=== PATIENT | female | born 1985 | race Caucasian/White ===

== ENCOUNTER → 2019-12-12 15:47 | Outpatient (CLI) | payer OTHER, SELFPAY ==
[2019-12-12 15:07] VITALS: BMI 23.7
[2019-12-12 17:30] LABS: Vitamin B12 467 pg/mL (211-911)
[2019-12-12 17:47] LABS: Free T3 3.6 pg/mL (2.18-3.98); Thyroid Stim Hormone (TSH) < 0.01 uIU/mL (0.358-3.74)
== END ==
PROVIDERS: Referring Provider Internal Medicine Endocrinology, Diabetes & Metabolism; Visit Provider Internal Medicine Endocrinology, Diabetes & Metabolism
DX: E05.90 Thyrotoxicosis, unspecified without thyrotoxic crisis or storm (principal); E53.8 Deficiency of other specified B group vitamins
CPT/HCPCS: 36415; 82607; 84439; 84443; 84481

== ENCOUNTER → 2020-02-06 08:57 | Outpatient (CLI) | payer OTHER, SELFPAY ==
[2019-12-12 15:07] VITALS: BMI 23.7
[2020-02-06 10:29] LABS: Free T3 3.1 pg/mL (2.18-3.98); T4 Free Direct 1.01 ng/dL (0.76-1.46); Thyroid Stim Hormone (TSH) 0.02 uIU/mL (0.358-3.74)
== END ==
PROVIDERS: Referring Provider Internal Medicine Endocrinology, Diabetes & Metabolism; Visit Provider Internal Medicine Endocrinology, Diabetes & Metabolism
DX: E05.90 Thyrotoxicosis, unspecified without thyrotoxic crisis or storm (principal)
CPT/HCPCS: 36415; 84439; 84443; 84481

== ENCOUNTER → 2020-05-27 07:30 | Outpatient (CLI) | payer OTHER, SELFPAY ==
[2019-12-12 15:07] VITALS: BMI 23.7
[2020-05-27 10:58] LABS: Free T3 3.4 pg/mL (2.18-3.98); T4 Free Direct 1.25 ng/dL (0.76-1.46); Thyroid Stim Hormone (TSH) 0.01 uIU/mL (0.358-3.74)
== END ==
PROVIDERS: Referring Provider Internal Medicine Endocrinology, Diabetes & Metabolism; Visit Provider Internal Medicine Endocrinology, Diabetes & Metabolism
DX: E05.00 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xic crisis or storm (principal)
CPT/HCPCS: 36415; 84439; 84443; 84481

== ENCOUNTER → 2020-06-04 07:44 | Outpatient (CLI) | payer OTHER, SELFPAY ==
[2019-12-12 15:07] VITALS: BMI 23.7
[2020-06-04 09:55] LABS: Absolute Lymphocyte Count 1.65 X10^3/uL (0.83-4.51); Absolute Neutrophil Count 2.8 X10^3/uL (2.0-7.7); Basophil# 0.06 X10^3/uL; Basophil% 1.2 % (0-1); Eosinophil# 0.11 X10^3/uL; Eosinophils% 2.2 % (0-5); Hematocrit 39.4 % (37-47); Hemoglobin 12.6 g/dL (12.0-15.0); Lymphocyte # 1.65 X10^3/ul (4.0); Lymphocyte % 32.6 % (19-41); Mean Corpuscular Hgb 32.1 pg (27.0-32.0); Mean Corpuscular Volume 100.3 fL (81-99); Mean Platelet Vol. 9.8 fl (6.2-12.0); Monocyte# 0.45 X10^3/uL; Monocyte% 8.9 % (0-10); NRBC Flagged by Analyzer 0 % (0-5); Neutrophil # 2.78 X10^3/uL (2.7-7.7); Neutrophil % 54.9 % (47-70); Platelet Count 276 K/mm3 (150-450); RBC Distribution Width CV 11.6 % (11.6-14.6); RBC Distribution Width SD 42.3 fl (35.1-43.9); Red Blood Count 3.93 M/mm3 (4.2-5.4); White Blood Count 5.1 K/mm3 (4.4-11.0)
[2020-06-04 10:18] LABS: ALB/GLOB Ratio 1.1 RATIO (0.9-2.4); AST(SGOT) 15 U/L (15-37); Alanine Aminotransfer ALT/SGPT 24 U/L (13-56); Albumin, Serum 3.6 g/dL (3.2-5.0); Alkaline Phosphatase 59 U/L (45-117); Anion Gap 4 (5-15); BUN 15 mg/dL (7-18); BUN/Creat Ratio 14.2 RATIO (10-20); Calcium,Total 8.6 mg/dL (8.5-10.1); Chloride 109 mmol/L (98-107); Creatinine, Serum 1.06 mg/dL (0.55-1.02); EST Glomerular Filtration Rate 63 mL/min (>60); Est Glom Filt Rate - Afr Amer 77 mL/min (>60); Globulin 3.4 g/dL (2.2-4.2); Glucose 78 mg/dL (74-106); Potassium 4.4 mmol/L (3.5-5.1); Sodium Level 139 mmol/L (136-145)
== END ==
PROVIDERS: Referring Provider Internal Medicine Endocrinology, Diabetes & Metabolism; Visit Provider Internal Medicine Endocrinology, Diabetes & Metabolism
DX: E05.00 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xic crisis or storm (principal)
CPT/HCPCS: 36415; 80053; 85025

== ENCOUNTER → 2020-07-16 09:21 | Outpatient (CLI) | payer OTHER, SELFPAY ==
[2020-06-11 15:00] VITALS: BMI 22.5
[2020-07-19 15:51] LABS: HPV APTIMA, High Risk Negative (Negative); HPV Reflexed? YES, CHARGE PATIENT
== END ==
PROVIDERS: Visit Provider Student in an Organized Health Care Education/Training Program
DX: Z12.4 Encounter for screening for malignant neoplasm of cervix (principal)
CPT/HCPCS: 87624; 88175; G0145

== ENCOUNTER → 2020-08-15 09:51 | Outpatient (CLI) | payer OTHER, SELFPAY ==
[2020-06-11 15:00] VITALS: BMI 22.5
[2020-08-15 13:33] LABS: Free T3 3.1 pg/mL (2.18-3.98); T4 Free Direct 1.19 ng/dL (0.76-1.46); Thyroid Stim Hormone (TSH) 0.02 uIU/mL (0.358-3.74)
== END ==
PROVIDERS: Referring Provider Internal Medicine Endocrinology, Diabetes & Metabolism; Visit Provider Internal Medicine Endocrinology, Diabetes & Metabolism
DX: E05.00 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xic crisis or storm (principal)
CPT/HCPCS: 36415; 84439; 84443; 84481

== ENCOUNTER → 2020-10-15 07:50 | Outpatient (CLI) | payer OTHER, SELFPAY ==
[2020-06-11 15:00] VITALS: BMI 22.5
[2020-10-15 10:31] LABS: Free T3 2.6 pg/mL (2.18-3.98); T4 Free Direct 1.16 ng/dL (0.76-1.46); Thyroid Stim Hormone (TSH) 0.02 uIU/mL (0.358-3.74)
== END ==
PROVIDERS: Referring Provider Internal Medicine Endocrinology, Diabetes & Metabolism; Visit Provider Internal Medicine Endocrinology, Diabetes & Metabolism
DX: E05.00 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xic crisis or storm (principal)
CPT/HCPCS: 36415; 84439; 84443; 84481

== ENCOUNTER → 2020-11-15 08:38 | Outpatient (CLI) | payer OTHER, SELFPAY ==
[2020-10-21 08:14] VITALS: BMI 22.3
[2020-11-15 10:04] LABS: Absolute Lymphocyte Count 1.94 X10^3/uL (0.83-4.51); Basophil# 0.05 X10^3/uL; Basophil% 0.9 % (0-1); Eosinophil# 0.05 X10^3/uL; Eosinophils% 0.9 % (0-5); Hematocrit 40.4 % (37-47); Hemoglobin 12.8 g/dL (12.0-15.0); Lymphocyte # 1.94 X10^3/ul (4.0); Mean Corp Hgb Conc 31.7 g/dL (32-36); Mean Corpuscular Hgb 31.3 pg (27.0-32.0); Mean Corpuscular Volume 98.8 fL (81-99); Mean Platelet Vol. 9.7 fl (6.2-12.0); Monocyte# 0.32 X10^3/uL; Monocyte% 5.9 % (0-10); NRBC Flagged by Analyzer 0 % (0-5); Neutrophil # 3.01 X10^3/uL (2.7-7.7); Neutrophil % 55.9 % (47-70); Platelet Count 303 K/mm3 (150-450); RBC Distribution Width CV 11.9 % (11.6-14.6); RBC Distribution Width SD 43.6 fl (35.1-43.9); Red Blood Count 4.09 M/mm3 (4.2-5.4); White Blood Count 5.4 K/mm3 (4.4-11.0)
[2020-11-15 10:26] LABS: Vitamin B12 302 pg/mL (211-911); Vitamin D,25 Hydroxy 23.5 ng/mL
[2020-11-15 10:40] LABS: ALB/GLOB Ratio 1.1 RATIO (0.9-2.4); AST(SGOT) 8 U/L (15-37); Alanine Aminotransfer ALT/SGPT 28 U/L (13-56); Albumin, Serum 3.7 g/dL (3.2-5.0); Alkaline Phosphatase 59 U/L (45-117); Anion Gap 4 (5-15); BUN 11 mg/dL (7-18); BUN/Creat Ratio 10.4 RATIO (10-20); Calcium,Total 8.4 mg/dL (8.5-10.1); Chloride 109 mmol/L (98-107); Creatinine, Serum 1.06 mg/dL (0.55-1.02); EST Glomerular Filtration Rate 63 mL/min (>60); Est Glom Filt Rate - Afr Amer 76 mL/min (>60); Ferritin 57 ng/mL (8-252); Globulin 3.4 g/dL (2.2-4.2); Glucose 81 mg/dL (74-106); Potassium 4.1 mmol/L (3.5-5.1); Protein, Total 7.1 g/dL (6.4-8.2); Sodium Level 140 mmol/L (136-145)
[2020-11-20 07:07] LABS: VITAMIN B6 26.1 ug/L (2.0-32.8); Vitamin B1, Thiamine 96.9 nmol/L (66.5-200.0)
[2020-11-20 13:38] LABS: t-Transglutaminase IgA 2 U/mL (0-3)
== END ==
DX: K90.0 Celiac disease (principal)
CPT/HCPCS: 36415; 80053; 82306; 82607; 82728; 82746; 83516; 84207; 84425; 85025

== ENCOUNTER → 2021-01-20 08:01 | Outpatient (CLI) | payer OTHER, SELFPAY ==
[2020-10-21 08:14] VITALS: BMI 22.3
[2021-01-20 10:44] LABS: T4 Free Direct 0.94 ng/dL (0.76-1.46); Thyroid Stim Hormone (TSH) 1.33 uIU/mL (0.358-3.74)
== END ==
PROVIDERS: Referring Provider Internal Medicine Endocrinology, Diabetes & Metabolism; Visit Provider Internal Medicine Endocrinology, Diabetes & Metabolism
DX: E05.00 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xic crisis or storm (principal)
CPT/HCPCS: 36415; 84439; 84443; 84481

== ENCOUNTER → 2021-04-21 08:30 | Outpatient (CLI) | payer OTHER, SELFPAY ==
[2021-04-21 08:13] VITALS: BMI 22.5
[2021-04-21 13:01] LABS: Free T3 2.1 pg/mL (2.18-3.98); T4 Free Direct 0.97 ng/dL (0.76-1.46)
== END ==
PROVIDERS: Referring Provider Internal Medicine Endocrinology, Diabetes & Metabolism; Visit Provider Internal Medicine Endocrinology, Diabetes & Metabolism
DX: E05.00 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xic crisis or storm (principal)
CPT/HCPCS: 36415; 84439; 84443; 84481

== ENCOUNTER → 2021-08-18 11:44 | Outpatient (CLI) | payer OTHER, SELFPAY ==
--- NOTE | 2021-08-18 11:48 | RAD_ITS ---
STUDY: HYSTEROSALPINGOGRAM. REASON FOR EXAM: Female, 35 years old. TUBAL PATENCY FLUOROSCOPY TIME (if supplied): ( 1 minute and 9 seconds ) minutes/seconds. 2 images were obtained. TECHNIQUE: A hysterosalpingogram was performed by the inspector technician. Imaging was provided. COMPARISON: None. FINDINGS: Limited examination due to the filling of the venous plexus. The left fallopian tube is patent with spill. I also suspect patency of the right fallopian tube. The uterus is unremarkable. RAD/Salpingogram IMPRESSION: Limited study. The uterus is unremarkable. I suspect patency of both fallopian tubes. Electronically Signed: Gordo Hubbard MD at 14:02 EDT , Service support ,
== END ==
PROVIDERS: Visit Provider Obstetrics & Gynecology
DX: Z31.41 Encounter for fertility testing (principal)
CPT/HCPCS: 58340; 74740; Q9967

== ENCOUNTER → 2021-09-24 08:09 | Outpatient (CLI) | payer OTHER, SELFPAY ==
[2021-09-24 10:29] LABS: Free T3 2.3 pg/mL (2.18-3.98); T4 Free Direct 0.94 ng/dL (0.76-1.46); Thyroid Stim Hormone (TSH) 1.55 uIU/mL (0.358-3.74)
== END ==
PROVIDERS: Referring Provider Internal Medicine Endocrinology, Diabetes & Metabolism; Visit Provider Internal Medicine Endocrinology, Diabetes & Metabolism
DX: E05.00 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xic crisis or storm (principal)
CPT/HCPCS: 36415; 84439; 84443; 84481

== ENCOUNTER 2022-01-26 07:23 | Outpatient (CLI) | payer OTHER, SELFPAY ==
--- NOTE | 2022-01-26 07:43 | MRI_ITS ---
STUDY: MRI RIGHT SHOULDER REASON FOR EXAM: Chronic right shoulder pain. TECHNIQUE: Standardized fat and water weighted pulse sequences were obtained in all 3 orthogonal planes. COMPARISON: None. FINDINGS: There is mild supraspinatus tendinosis (T2 coronal images 11-14) without discrete tendon tear. Normal infraspinatus tendon. Normal subscapularis tendon. Normal teres minor tendon. Normal supraspinatus muscle. Normal infraspinatus muscle. Normal subscapularis muscle. Normal teres minor muscle. Normal glenohumeral articulation. Normal humeral head and visualized proximal humerus. Normal biceps labral complex. Normal intracapsular long biceps tendon. Normal labrum. Normal capsulo- ligamentous complex. Normal acromioclavicular articulation. There is a Type II morphology (curved), with a neutral orientation. There is no subacromial-subdeltoid bursal fluid. Normal visualized coracohumeral and coracoacromial ligaments. Normal deltoid muscle. Normal trapezius muscle. MRI/Upper Ext Joint Only(Routine) IMPRESSION: Mild supraspinatus tendinosis without demonstrated rotator cuff tear. Electronically Signed: Beltran Pink MD at 9:30 EDT ,
[2022-01-26 12:31] LABS: Free T3 2.4 pg/mL (2.18-3.98); T4 Free Direct 0.92 ng/dL (0.76-1.46); Thyroid Stim Hormone (TSH) 1.66 uIU/mL (0.358-3.74)
== END 2022-01-26 23:59 | disposition home or self-care (01) ==
PROVIDERS: Internal Medicine Endocrinology, Diabetes & Metabolism; Referring Provider Orthopaedic Surgery Hand Surgery; Visit Provider Orthopaedic Surgery Hand Surgery
DX: E05.00 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xic crisis or storm (principal); M65.811 Other synovitis and tenosynovitis, right shoulder; M25.511 Pain in right shoulder
CPT/HCPCS: 36415; 73221; 84439; 84443; 84481

== ENCOUNTER → 2022-07-08 | Outpatient (CLI) | payer OTHER, SELFPAY ==
[2022-07-08 16:09] LABS: Free T3 3.2 pg/mL (2.18-3.98); T4 Free Direct 1.07 ng/dL (0.76-1.46); Thyroid Stim Hormone (TSH) 0.19 uIU/mL (0.358-3.74)
== END | disposition home or self-care (01) ==
LOC: MTLAB 13:38
PROVIDERS: PCP Family Medicine; Referring Provider Nurse Practitioner Family; Visit Provider Nurse Practitioner Family
DX: E05.00 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xic crisis or storm (principal)
CPT/HCPCS: 36415; 84439; 84443; 84481

== ENCOUNTER → 2022-09-02 | Outpatient (CLI) | payer OTHER, SELFPAY ==
[2022-09-02 10:42] LABS: Free T3 3.3 pg/mL (2.18-3.98); T4 Free Direct 1.11 ng/dL (0.76-1.46); Thyroid Stim Hormone (TSH) 0.01 uIU/mL (0.358-3.74)
== END | disposition home or self-care (01) ==
LOC: MTLAB 08:16
PROVIDERS: PCP Family Medicine; Visit Provider Internal Medicine Endocrinology, Diabetes & Metabolism
DX: E05.00 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xic crisis or storm (principal)
CPT/HCPCS: 36415; 84439; 84443; 84481

== ENCOUNTER → 2022-09-22 | Outpatient (CLI) | payer OTHER, SELFPAY ==
[2022-09-22 18:19] LABS: Free T3 3.1 pg/mL (2.18-3.98); T4 Free Direct 0.98 ng/dL (0.76-1.46); Thyroid Stim Hormone (TSH) 0.02 uIU/mL (0.358-3.74)
== END | disposition home or self-care (01) ==
LOC: MTLAB 14:32
PROVIDERS: PCP Family Medicine; Referring Provider Internal Medicine Endocrinology, Diabetes & Metabolism; Visit Provider Internal Medicine Endocrinology, Diabetes & Metabolism
DX: E05.00 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xic crisis or storm (principal)
CPT/HCPCS: 36415; 84439; 84443; 84481

== ENCOUNTER → 2022-10-15 | Outpatient (CLI) | payer OTHER, SELFPAY ==
[2022-10-15 10:44] LABS: Vitamin B12 419 pg/mL (211-911)
[2022-10-15 10:51] LABS: Free T3 2.6 pg/mL (2.18-3.98); T4 Free Direct 0.84 ng/dL (0.76-1.46); Thyroid Stim Hormone (TSH) 0.26 uIU/mL (0.358-3.74)
== END | disposition home or self-care (01) ==
LOC: MTLAB 08:41
PROVIDERS: Internal Medicine Endocrinology, Diabetes & Metabolism; PCP Family Medicine; Referring Provider Nurse Practitioner Family; Visit Provider Nurse Practitioner Family
DX: E05.00 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xic crisis or storm (principal); R20.2 Paresthesia of skin
CPT/HCPCS: 36415; 82607; 84439; 84443; 84481

== ENCOUNTER → 2022-12-22 | Outpatient (CLI) | payer OTHER, SELFPAY ==
--- NOTE | 2022-12-22 18:15 | MRI_ITS ---
PROCEDURE: MRI LUMBAR SPINE WITHOUT CONTRAST REASON FOR EXAM: Female, 37 years old. Low back pain TECHNIQUE: Standardized fat and water weighted pulse sequences were obtained in the sagittal and axial planes. COMPARISON: None FINDINGS: Normal lumbar lordosis. There is no substantial scoliosis. Normal conus medullaris that terminates at the T12-L1 level. No marrow edema or fracture or compression deformity is present. No pars interarticularis defects are seen. T12-L1: Normal endplates. Normal disc height, hydration and morphology. Normal bilateral facet joints. Normal central canal and bilateral lateral recesses. Normal bilateral intervertebral neural foramina. L1-2: Normal endplates. Normal disc height, hydration and morphology. Normal bilateral facet joints. Normal central canal and bilateral lateral recesses. Normal bilateral intervertebral neural foramina. L2-3: Normal endplates. Normal disc height, hydration and morphology. Normal bilateral facet joints. Normal central canal and bilateral lateral recesses. Normal bilateral intervertebral neural foramina. L3-4: Normal endplates. Normal disc height, hydration and morphology. Normal bilateral facet joints. Normal central canal and bilateral lateral recesses. Normal bilateral intervertebral neural foramina. L4-5: Normal endplates. Normal disc height, hydration and morphology. Mild facet joint hypertrophy. Normal central canal and bilateral lateral recesses. Normal bilateral intervertebral neural foramina. L5-S1: Normal endplates. Normal disc height, hydration and morphology. Mild facet joint hypertrophy. Normal central canal and bilateral lateral recesses. Normal bilateral intervertebral neural foramina. Normal visualized sacral ala. Normal visualized paraspinous soft tissue structures. MRI/Spine Lumbar (Routine) IMPRESSION: 1. Mild facet joint hypertrophy at L4-L5 and L5-S1 Electronically Signed: Armando Gómez MD at 10:47 EST Reading Location ID and State: [address] [place] [address] , Service support ,
== END | disposition home or self-care (01) ==
LOC: MRI 17:50
PROVIDERS: PCP Family Medicine; Visit Provider Chiropractor
DX: M54.16 Radiculopathy, lumbar region (principal)
CPT/HCPCS: 72148

== ENCOUNTER → 2023-03-05 | Outpatient (CLI) | payer OTHER, SELFPAY ==
[2023-03-05 16:10] LABS: T4 Free Direct 1.33 ng/dL (0.76-1.46); Thyroid Stim Hormone (TSH) < 0.01 uIU/mL (0.358-3.74)
== END | disposition home or self-care (01) ==
LOC: MTLAB 13:16
PROVIDERS: PCP Family Medicine; Referring Provider Internal Medicine Endocrinology, Diabetes & Metabolism; Visit Provider Internal Medicine Endocrinology, Diabetes & Metabolism
DX: E05.00 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xic crisis or storm (principal)
CPT/HCPCS: 36415; 84439; 84443; 84481

== ENCOUNTER → 2023-04-08 | Outpatient (CLI) | payer OTHER, SELFPAY ==
[2023-04-08 09:46] LABS: Free T3 3.2 pg/mL (2.18-3.98); T4 Free Direct 1.09 ng/dL (0.76-1.46); Thyroid Stim Hormone (TSH) 0.01 uIU/mL (0.358-3.74)
== END | disposition home or self-care (01) ==
LOC: LAB 08:28
PROVIDERS: PCP Family Medicine; Referring Provider Internal Medicine Endocrinology, Diabetes & Metabolism; Visit Provider Internal Medicine Endocrinology, Diabetes & Metabolism
DX: E05.00 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xic crisis or storm (principal)
CPT/HCPCS: 36415; 84439; 84443; 84481

== ENCOUNTER → 2023-07-13 | Outpatient (CLI) | payer OTHER, SELFPAY ==
--- NOTE | 2023-07-13 14:36 | BD_ITS ---
STUDY: DUAL ENERGY X-RAY ABSORPTIOMETRY / DXA REASON FOR EXAM: Female, 37 years old. V76.12ScreeningBONE DENSITY REASON FOR EXAM TECHNIQUE: Bone Mineral Density (BMD) measurements of lumbar spine and bilateral hips were obtained. COMPARISON: None. FINDINGS: Lumbar Spine (L1-L4): g/cm2 (1.302) / T-score (2.3) / Z-score (2.4) Findings are suggestive of normal bone density with a low fracture risk. Left Femur Total: g/cm2 (0.956) / T-score (0.1) / Z-score (0.2) Left Femoral Neck: g/cm2 (0.824) / T-score (-0.2) / Z-score (0.0) Right Femur Total: g/cm2 (0.975) / T-score (0.3) / Z-score (0.4) Right Femoral Neck: g/cm2 (0.848) / T-score (0.0) / Z-score (0.2) BD/Dexa Bone Density Study IMPRESSION: The patient is considered normal as outlined below according to World Deandre Organization (WHO) criteria with a low fracture risk. Reference Information: The T-score is the number of standard deviations above or below the standard which is normal for young adults at their peak bone mineral density. The World Health Organization (WHO) interprets the T-scores as follows: Above -1 Normal bone density Between -1 and -2.5 Osteopenia Equal to / or below -2.5 Osteoporosis As a practical clinical guideline, osteopenia may be graded as follows: Mild -1 through -1.5 Moderate -1.6 through -2.0 Severe -2.1 through -2.4 The Z-score is the number of standard deviations above or below age-matched controls. A Z-score of less than -1.5 would be considered abnormal. References: 1. NIH Osteoporosis and Related Bone Diseases www osteo.org 2. International Society for Clinical Densitometry www iscd.org 3. National Osteoporosis Foundation www nof.org Electronically Signed: Gordo Hubbard MD at 14:52 EDT ,
== END | disposition home or self-care (01) ==
PROVIDERS: PCP Family Medicine
DX: K90.0 Celiac disease (principal)
CPT/HCPCS: 77080

== ENCOUNTER → 2023-09-10 | Outpatient (CLI) | payer OTHER, SELFPAY ==
--- NOTE | 2023-09-10 14:02 | US_ITS ---
STUDY: THYROID ULTRASOUND REASON FOR EXAM: Female, 37 years old. GRAVES DISEASE TECHNIQUE: Ultrasound evaluation of the thyroid was performed with real-time and static rice-scale imaging. COMPARISON: None. FINDINGS: RIGHT LOBE: The right lobe of the thyroid gland is enlarged and measures 5.6 cm x 2.2 cm x 2.1 cm. There is a heterogeneous echotexture. There are no demonstrated solid, cystic or complex lesions. LEFT LOBE: The left lobe of the thyroid gland is enlarged and measures 5.3 cm x 1.5 cm x 1.6 cm. There is a heterogeneous echotexture. There are no demonstrated solid, cystic or complex lesions. ISTHMUS: The isthmus measures 2.2 mm. The regional lymph nodes are normal. US/Thyroid IMPRESSION: Heterogeneous enlargement of both lobes of the thyroid gland. Electronically Signed: Gordo Hubbard MD at 15:08 EDT ,
[2023-09-10 16:06] LABS: Free T3 2.1 pg/mL (2.18-3.98); T4 Free Direct 0.84 ng/dL (0.76-1.46); Thyroid Stim Hormone (TSH) 2.93 uIU/mL (0.358-3.74)
== END | disposition home or self-care (01) ==
PROVIDERS: Internal Medicine Endocrinology, Diabetes & Metabolism; PCP Family Medicine
DX: E05.00 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xic crisis or storm (principal)
CPT/HCPCS: 36415; 76536; 84439; 84443; 84481

== ENCOUNTER → 2023-10-13 | Outpatient (CLI) | payer OTHER, SELFPAY ==
[2023-10-13 10:33] LABS: Free T3 2.1 pg/mL (2.18-3.98); T4 Free Direct 0.87 ng/dL (0.76-1.46); Thyroid Stim Hormone (TSH) 2.69 uIU/mL (0.358-3.74)
== END | disposition home or self-care (01) ==
LOC: LAB 09:25
PROVIDERS: PCP Family Medicine; Referring Provider Internal Medicine Endocrinology, Diabetes & Metabolism; Visit Provider Internal Medicine Endocrinology, Diabetes & Metabolism
DX: E05.00 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xic crisis or storm (principal)
CPT/HCPCS: 36415; 84439; 84443; 84481

== ENCOUNTER → 2023-11-11 | Outpatient (CLI) | payer OTHER, SELFPAY ==
--- OUTSIDE RECORDS SUMMARY | 2023-11-11 20:44 | XMS RPT_ITS | CCD ---
Author Name Unknown Address [address] [place] [address] Organization [facility] Care Team Providers Care Manager Of Application Development Name Role Phone NO PRIMARY CAREMD Primary Care Unavailable DAWIT GARCIA Attending Unavailable MIO DARDEN Referring Unavailable MIO DARDEN MD Attending Unavailable MIO DARDEN MD Primary Care Unavailable MIO DARDEN MD Admitting Unavailable Natasha Ugalde DO Primary Care Provider NATASHA UGALDE [facility] Referring Unavailable NATASHA UGALDE Primary [facility] Attending Unavailable NATASHA UGALDE Primary Care Unavailab chhaya Medications Completed/Discontinued Medications Medication Drug Class(es) Dates Sig (Normalized) Sig (Original) Budesonide (1 source) Corticosteroid budesonide (RHIN OCORT NASAL) Use in the nose once daily. 0 Active Problems Problem Classification Problem Date Documented Da te Episodic/Chronic Osteoarthritis (2 sources) Arthritis of left elbow; Translations: [Primary osteoarthritis, left elbow] Onset: 04-07-2016 04-07-2016 Chronic Other gastrointestinal disorders (2 sources) Celiac disease; Translations: [Celiac disease] Onset: 04-17-2019 05-21-2023 Chronic Other gastrointestinal disorders (1 source) Celiac disease; Translations: [Celiac disease] Onset: 04-17-2019 Chronic Other non-traumatic joint disorders (1 source) Loose body in left elbow joint; Translations: [Loose body in left elbow] Onset: 08-05-2021 08-05-2021 Chronic Thyroid disorders (3 sources) Graves' disease; Translations: [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xic crisis or storm] Onset: 10-08-2018 05-21-2023 Chronic Results Test Name Value Interpretation Reference Range Facil ity Encounters Encounter Date Encounter Type Care Provider Facility Start: 05-27-2023 End: 05-28-2023 [facility] Start: 05-21-2023 End: 05-21-2023 ambulatory NATASHA UGALDE Facility:[facility] Start: 05-21-2023 End: 05-21-2023 ambulatory Va Beasley MD Work Phone: Endocrinology Plan of Treatment Date Care Activity Detail Author Start: 04-17-2029 Urine microalbumin profile DTAP,TDAP,TD (2 - Td or Tdap) [facility] Start: 07-09-2023 Influenza vaccination INFLUENZA (#1) [facility] Start: 05-21-2023 End: 07-21-2023 THYROID STIMULATING IMMUNOGLOBULIN BLOOD THYROID STIMULATING IMMUNOGLOBULIN BLOOD Lab Routine Graves disease Expected: 05/21/2023, Expires: 07/21/2023 [facility] Work Phone: Immunizations Immunization Date Immunization Notes Care Provider Amberly campos 04-17-2019 tetanus toxoid, redu shonna diphtheria toxoid, and acellular pertussis vaccine, adsorbed Va Beasley MD Work Phone: [facility] Payers Date Payer Category Payer Unknown [id number] 2022 Unknown [employer] P[employer] [id number] 2022-Present [phone] [address] [place] [address] PPO [id number] 1985 Unknown [id number] Social History Date Type Detail Facility Start: 11-19-2015 Tobacco smoking stat us NHIS Never smoked tobacco [facility] Start: 11-19-2015 Tobacco use and exposure Smoke less tobacco non-user [facility] Start: 08-05-2021 Alcohol intake Current drinke r of alcohol (finding) [facility] Start: 08-05-2021 End: 05-06-2023 History of Social function [facility] Start: 08-05-2021 End: 05-06-2023 Tobacco use panel [facility] Adult Depression Scr eening Assessment 0 [facility] Start: 1985 Sex Assigned At Not on file C [facility] Progress note 05-21-2023 Note Date & Type Note Facility 05-21-2023 Note HNO ID: [id number] Author: Va Beasley MD Service: ? Author Type: Physician Type: Progress Notes Filed: 05/21/2023 10:46 AM Note Text: ENDOCRINOLOGY REFERRAL - THYROID DISORDER Referring Physician: Natasha Ugalde, My final recommendations will be communicated back to the referring provider via shared medical record, or USPS FOR VIRTUAL VISITS: I have communicated my name and licensure. The patient's identity and location were verified. Either the patient or their legal ict sales representative has been informed of the risks, benefits, and alternatives based on a remote evaluation, and consents to proceed remotely per [place] law. CC: Graves disease HPI: Ray Vega is a 37 year old female who presents in referral for my expert opinion regarding Graves disease - diagnosed several years ago - was stable on 6 pills per week -- resolved and then relapsed - wants to start a family - now on 20 mg daily -- since last fall Severity, modifying factors, context and associated signs and symptoms are as follows: Thyroid pain: none Mass effect: none Energy: ok Sleep: not great Temperature Intolerance: hot GI: Celiac -- dx 10 years ago and follows the diet Weight:fairly stable Eye changes: noted Memory: ok Diaphoresis: Skin: Neuro/Cognitive: intact Radiological imaging with contrast dyes within the last 3 months? no History of radiation exposure to head or neck area? -Supplements: fish oil, B12 supplement, glucosamine, and The remainder of the ROS is negative PAST MEDICAL HISTORY Diagnosis Date B12 deficiency Celiac disease Biopsy proven Eating disorder history of age [age]. purging then restricting/ compulsive exercising Graves disease 10/2018 PAST SURGICAL HISTORY Procedure Laterality Date EGD Upper endoscoscopy: Dr. GriffithBjww-Ktspv-Estdfoc Celiac Disease ELBOW SURGERY HX 2008 left ELBOW SURGERY HX Left 10/2016 KNEE SURGERY HX 2007 Left x 2 LASIK 2013 TONSILLECTOMY AND ADENOIDECTOMY HX UNSPECIFIED ORAL SURGERY PROCEDURE, BY REPORT 2005 FAMILY HISTORY Problem Relation Age of Onset Breast Cancer Paternal Grandmother Skin Cancer Paternal Grandmother Diabetes Maternal Grandmother Coronary Artery Disease Maternal Grandmother GI Maternal Grandmother Diverticulitis Hyperlipidemia Mother Hypertension Mother Fibromyalgia Mother Blood Disease Mother MTHFR Hypertension Father GI Brother Non-celiac gluten sensitivity Coronary Artery Disease Maternal Grandfather Coronary Artery Disease Paternal Grandfather Diabetes Paternal Aunt other (Sarcoidosis) Maternal Aunt Social History Tobacco Use Smoking status: Never Smokeless tobacco: Never Substance Use Topics Alcohol use: Yes Alcohol/week: 0.0 - 5.0 standard drinks of alcohol Drug use: No Current Outpatient Medications on File Prior to Visit Medication Sig cetirizine HCl (ZYRTEC ORAL) Take by mouth. metHIMazole (TAPAZOLE) 10 mg tablet Take 1 tablet by mouth once daily. budesonide (RHINOCORT NASAL) Use in the nose once daily. cyanocobalamin (VITAMIN B-12) 1,000 mcg tab Take 1,000 mcg by mouth once daily. Norethindrone Acet-Ethinyl Est (JUNE,) 1-20 mg-mcg per tablet Take 1 tablet by mouth once daily. SULFACLEANSE 8-4 8-4 % susp Apply 1 application to affected area once daily. OMEGA-3 FATTY ACIDS/FISH OIL (OMEGA 3 FISH OIL ORAL) Take 1,200 mg by mouth once daily. No current facility-administered medications on file prior to visit. LABS - to be sent to me - also ordered new today IMAGING PHYSICAL EXAM: LMP 03/17/2019 VIRTUALLY General appearance: Well appearing, alert, in no acute distress, well-hydrated, well nourished. NECK - normal in appearance ASSESSMENT AND PLAN ASSESSMENT/PLAN: 1. Graves disease - ICD9: 242.00, ICD10: E05.00 (primary diagnosis) - at least since 2018 -- now with another relapse and back on fairly high dose methimazole - labs not available from her current MD - check ab - she will also seek opthal opinion re eye changes - discussed sx vs ablation -- recommend sx - TSH BLD - T3 FREE BLD - T4 FREE/FREE THYROX - THYROID STIMULATING IMMUNOGLOBULIN BLOOD - communicate via My Chart 2. Celiac disease - ICD9: 579.0, ICD10: K90.0 - compliant I thank you for the opportunity to participate in the care of Ray Vega. Please do not hesitate to contact me if you have further concerns or questions. This chart has been routed to the referring provider electronically aV Beasley MS, RD, MD, CCD, FACN, FACP, FACE Diplomate, [place] Board [employer]esity [employer] Diplomate, National Board of Physician Nutrition Specialists Endocrinology / / [facility] [id number] Any part of this document that has been added/copied AND pasted from other documents has been reviewed for accuracy and updated as appropriate at the time of the patient encounter [facility] History of Present illness Narrative 05-21-2023 Va Beasley MD - 05/21/2023 10:20 AM EDT Note Date & Type Note Facility 05-21-2023 History of Presen t illness Narrative ENDOCRINOLOGY REFERRAL - THYROID DISORDER Referring Physician: Natasha Ugalde, DO My final recommendations will be communicated back to the referring provider via shared medical record, or USPS FOR VIRTUAL VISITS: I have communicated my name and licensure. The patient's identity and location were verified. Either the patient or their legal ict sales representative has been informed of the risks, benefits, and alternatives based on a remote evaluation, and consents to proceed remotely per [place] law. CC: Graves disease HPI: Ray Vega is a 37 year old female who presents in referral for my expert opinion regarding Graves disease - diagnosed several years ago - was stable on 6 pills per week -- resolved and then relapsed - wants to start a family - now on 20 mg daily -- since last fall Severity, modifying factors, context and associated signs and symptoms are as follows: Thyroid pain: none Mass effect: none Energy: ok Sleep: not great Temperature Intolerance: hot GI: Celiac -- dx 10 years ago and follows the diet Weight:fairly stable Eye changes: noted Memory: ok Diaphoresis: Skin: Neuro/Cognitive: intact Radiological imaging with contrast dyes within the last 3 months? no History of radiation exposure to head or neck area? -Supplements: fish oil, B12 supplement, glucosamine, and The remainder of the ROS is negative PAST MEDICAL HISTORY Diagnosis Date B12 deficiency Celiac disease Biopsy proven Eating disorder history of age [age]. purging then restricting/ compulsive exercising Graves disease 10/2018 PAST SURGICAL HISTORY Procedure Laterality Date EGD Upper endoscoscopy: Dr. GriffithQude-Xgddc-Rkflicb Celiac Disease ELBOW SURGERY HX 2008 left ELBOW SURGERY HX Left 10/2016 KNEE SURGERY HX 2007 Left x 2 LASIK 2013 TONSILLECTOMY AND ADENOIDECTOMY HX UNSPECIFIED ORAL SURGERY PROCEDURE, BY REPORT 2006 FAMILY HISTORY Problem Relation Age of Onset Breast Cancer Paternal Grandmother Skin Cancer Paternal Grandmother Diabetes Maternal Grandmother Coronary Artery Disease Maternal Grandmother GI Maternal Grandmother Diverticulitis Hyperlipidemia Mother Hypertension Mother Fibromyalgia Mother Blood Disease Mother MTHFR Hypertension Father GI Brother Non-celiac gluten sensitivity Coronary Artery Disease Maternal Grandfather Coronary Artery Disease Paternal Grandfather Diabetes Paternal Aunt other (Sarcoidosis) Maternal Aunt Social History Tobacco Use Smoking status: Never Smokeless tobacco: Never Substance Use Topics Alcohol use: Yes Alcohol/week: 0.0 - 5.0 standard drinks of alcohol Drug use: No Current Outpatient Medications on File Prior to Visit Medication Sig cetirizine HCl (ZYRTEC ORAL) Take by mouth. metHIMazole (TAPAZOLE) 10 mg tablet Take 1 tablet by mouth once daily. budesonide (RHINOCORT NASAL) Use in the nose once daily. cyanocobalamin (VITAMIN B-12) 1,000 mcg tab Take 1,000 mcg by mouth once daily. Norethindrone Acet-Ethinyl Est (JUNE,) 1-20 mg-mcg per tablet Take 1 tablet by mouth once daily. SULFACLEANSE 8-4 8-4 % susp Apply 1 application to affected area once daily. OMEGA-3 FATTY ACIDS/FISH OIL (OMEGA 3 FISH OIL ORAL) Take 1,200 mg by mouth once daily. No current facility-administered medications on file prior to visit. LABS - to be sent to me - also ordered new today IMAGING PHYSICAL EXAM: LMP 03/17/2019 VIRTUALLY General appearance: Well appearing, alert, in no acute distress, well-hydrated, well nourished. NECK - normal in appearance ASSESSMENT & PLAN ASSESSMENT/PLAN: 1. Graves disease - ICD9: 242.00, ICD10: E05.00 (primary diagnosis) - at least since 2018 -- now with another relapse and back on fairly high dose methimazole - labs not available from her current MD - check ab - she will also seek opthal opinion re eye changes - discussed sx vs ablation -- recommend sx - TSH BLD - T3 FREE BLD - T4 FREE/FREE THYROX - THYROID STIMULATING IMMUNOGLOBULIN BLOOD - communicate via My Chart 2. Celiac disease - ICD9: 579.0, ICD10: K90.0 - compliant I thank you for the opportunity to participate in the care of Ray Vega. Please do not hesitate to contact me if you have further concerns or questions. This chart has been routed to the referring provider electronically Va Beasley, MS, RD, MD, CCD, FACN, FACP, FACE Diplomate, [place] [employer] Diplomate, National Board of Physician Nutrition Specialists Endocrinology / / [facility] [id number] Any part of this document that has been added/copied & pasted from other documents has been reviewed for accuracy and updated as appropriate at the time of the patient encounter documented in this encounter [facility] Evaluation note Note Date & Type Note Facility documented in this encounter [facility] Summary Purpose Family History No Family History Records FoundNo Family History Records FoundNo Family History Records FoundNo Family History Records FoundNo Family History Records FoundNo Family History Records FoundNo Family History Records Found Advance Directives No Advanced Directives Records FoundNo Advanced Directives Records FoundNo Advanced Directives Records FoundNo Advanced Directives Records FoundNo Advanced Directives Records FoundNo Advanced Directives Records FoundNo Advanced Directives Records Found Additional Source Comments INFORMATION SOURCE (unrecogn ized section and content) DATE CREATED AUTHOR AUTHOR'S ORGANIZ ATION 09/29/2019 [facility] DATE CREATED AUTHOR AUTHOR'S ORGANIZ ATION 11/15/2020 [employer] DATE CREATED AUTHOR AUTHOR'S ORGANIZ ATION 08/30/2021 [facility] ([place]) DATE CREATED AUTHOR AUTHOR'S ORGANIZ ATION 09/30/2022 [facility] DATE CREATED AUTHOR AUTHOR'S ORGANIZ ATION 02/02/2023 [facility] DATE CREATED AUTHOR AUTHOR'S ORGANIZ ATION 05/28/2023 [facility] Source Comments (unrecognize d section and content) In the event this informatio n is protected by the Federal Confidentiality of Alcohol and Drug Abuse Patient Records regulations: The Federal rules restrict any use of the information to criminally investigate or prosecute any alcohol or drug abuse patient.[facility] Reason for Visit (unrecogniz ed section and content) Specialty Diagnoses / Procedures Referred By Contac t Referred To Contact Endocrinology / ENDOCRINOLOGY Diagnoses Graves disease Graves Disease Procedures PHYS/QHP TELEPHONE EVALUATION 5-10 MIN [place] [address] [place] [address] Referral ID Status Reason Start Date Expiration Date V isits Requested Visits Authorized [id number] Denied Clearance Not Met - Admin/Chairm an/Director Advise to Postpone/Res chedule or Not Proceed 05/21/2023 08/19/2023 1 0 Care Teams (unrecognized sec tion and content) FOR RECORDS PERTAINING TO PATIENTS WHO ARE OR HAVE BEEN ENROLLED IN A CHEMICAL DEPENDENCY/SUBSTANCEABUSE PROGRAM, SOME INFORMATION MAY BE OMITTED. This clinical summary was aggregated from multiple sources. Caution should be exercised in using it in the provision of clinical care. This summary normalizes information from multiple sources, and as a consequence, information in this document may materially change the coding, format and clinical context of patient data. In addition, data may be omitted in some cases. CLINICAL DECISIONS SHOULD BE BASED ON THE PRIMARY CLINICAL RECORDS. [email or web address] [facility]. provides no warranty or guarantee of the accuracy or completeness of information in this document.
[2023-11-16 13:07] LABS: HPV APTIMA, High Risk Negative (Negative)
== END | disposition home or self-care (01) ==
PROVIDERS: PCP Family Medicine; Referring Provider Registered Nurse; Visit Provider Registered Nurse
DX: Z12.4 Encounter for screening for malignant neoplasm of cervix (principal)
CPT/HCPCS: 87624; 88175; G0145

== ENCOUNTER → 2024-03-08 | Outpatient (CLI) | payer OTHER, SELFPAY ==
[2024-03-08 10:56] LABS: Free T3 2.4 pg/mL (2.18-3.98); T4 Free Direct 0.91 ng/dL (0.76-1.46); Thyroid Stim Hormone (TSH) 1.74 uIU/mL (0.358-3.74)
== END | disposition home or self-care (01) ==
PROVIDERS: PCP Family Medicine; Referring Provider Internal Medicine Endocrinology, Diabetes & Metabolism; Visit Provider Internal Medicine Endocrinology, Diabetes & Metabolism
DX: E05.00 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xic crisis or storm (principal)
CPT/HCPCS: 36415; 84439; 84443; 84481

== ENCOUNTER → 2024-05-30 | Outpatient (CLI) | payer OTHER, SELFPAY ==
[2024-05-30 10:59] LABS: Free T3 2.1 pg/mL (2.18-3.98); T4 Free Direct 0.72 ng/dL (0.76-1.46); Thyroid Stim Hormone (TSH) 3.34 uIU/mL (0.358-3.74)
== END | disposition home or self-care (01) ==
LOC: MTLAB 08:40
PROVIDERS: PCP Family Medicine; Referring Provider Internal Medicine Endocrinology, Diabetes & Metabolism; Visit Provider Internal Medicine Endocrinology, Diabetes & Metabolism
DX: E05.00 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xic crisis or storm (principal)
CPT/HCPCS: 36415; 84439; 84443; 84481

== ENCOUNTER → 2024-07-31 | Outpatient (CLI) | payer OTHER, SELFPAY ==
[2024-07-31 09:26] LABS: Free T3 2.4 pg/mL (2.18-3.98); T4 Free Direct 0.77 ng/dL (0.76-1.46)
== END | disposition home or self-care (01) ==
LOC: LAB 08:29
PROVIDERS: PCP Family Medicine; Referring Provider Internal Medicine Endocrinology, Diabetes & Metabolism; Visit Provider Internal Medicine Endocrinology, Diabetes & Metabolism
DX: N91.2 Amenorrhea, unspecified (principal)
CPT/HCPCS: 36415; 84439; 84443; 84481

== ENCOUNTER → 2024-08-25 | Outpatient (CLI) | payer OTHER, SELFPAY ==
[2024-08-25 09:52] LABS: ALB/GLOB Ratio 1.1 RATIO (0.9-2.4); AST(SGOT) 14 U/L (15-37); Alanine Aminotransfer ALT/SGPT 29 U/L (13-56); Albumin, Serum 3.7 g/dL (3.2-5.0); Alkaline Phosphatase 50 U/L (45-117); Anion Gap 5 (5-15); BUN 15 mg/dL (7-18); BUN/Creat Ratio 14.4 RATIO (10-20); Calcium,Total 8.7 mg/dL (8.5-10.1); Chloride 110 mmol/L (98-107); Creatinine, Serum 1.04 mg/dL (0.55-1.02); EST Glomerular Filtration Rate 63 mL/min (>60); Est Glom Filt Rate - Afr Amer 76 mL/min (>60); Free T3 2.3 pg/mL (2.18-3.98); Globulin 3.3 g/dL (2.2-4.2); Glucose 86 mg/dL (74-106); Potassium 4.4 mmol/L (3.5-5.1); Sodium Level 139 mmol/L (136-145); T4 Free Direct 0.72 ng/dL (0.76-1.46)
== END | disposition home or self-care (01) ==
LOC: LAB 08:30
PROVIDERS: PCP Family Medicine; Referring Provider Internal Medicine Endocrinology, Diabetes & Metabolism; Visit Provider Internal Medicine Endocrinology, Diabetes & Metabolism
DX: E05.00 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xic crisis or storm (principal)
CPT/HCPCS: 80053; 84439; 84443; 84481

== ENCOUNTER → 2024-09-14 | Outpatient (CLI) | payer OTHER, SELFPAY ==
[2024-09-14 12:20] LABS: Free T3 2.4 pg/mL (2.18-3.98); T4 Free Direct 0.75 ng/dL (0.76-1.46)
== END | disposition home or self-care (01) ==
PROVIDERS: PCP Family Medicine; Referring Provider Internal Medicine Endocrinology, Diabetes & Metabolism; Visit Provider Internal Medicine Endocrinology, Diabetes & Metabolism
DX: E05.00 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xic crisis or storm (principal)
CPT/HCPCS: 36415; 84439; 84443; 84481

== ENCOUNTER → 2024-10-18 | Outpatient (CLI) | payer OTHER, SELFPAY ==
[2024-10-18 16:03] LABS: Free T3 2.6 pg/mL (2.18-3.98); T4 Free Direct 0.87 ng/dL (0.76-1.46)
== END | disposition home or self-care (01) ==
LOC: MTLAB 13:52
PROVIDERS: PCP Family Medicine; Referring Provider Internal Medicine Endocrinology, Diabetes & Metabolism; Visit Provider Internal Medicine Endocrinology, Diabetes & Metabolism
DX: E05.00 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xic crisis or storm (principal)
CPT/HCPCS: 36415; 84439; 84443; 84481

== ENCOUNTER → 2024-12-08 | Outpatient (CLI) | payer OTHER, SELFPAY ==
[2024-12-08 11:44] LABS: Free T3 3.4 pg/mL (2.18-3.98); T4 Free Direct 1.11 ng/dL (0.76-1.46); Thyroid Stim Hormone (TSH) 0.108 uIU/mL (0.358-3.740)
== END | disposition home or self-care (01) ==
LOC: MTLAB 08:26
PROVIDERS: PCP Family Medicine; Referring Provider Internal Medicine Endocrinology, Diabetes & Metabolism; Visit Provider Internal Medicine Endocrinology, Diabetes & Metabolism
DX: E05.00 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xic crisis or storm (principal)
CPT/HCPCS: 84439; 84443; 84481

== ENCOUNTER → 2025-01-08 | Outpatient (CLI) | payer OTHER, SELFPAY ==
[2025-01-08 11:44] LABS: Free T3 3.4 pg/mL (2.18-3.98); Thyroid Stim Hormone (TSH) 0.102 uIU/mL (0.300-4.200)
== END | disposition home or self-care (01) ==
LOC: MTLAB 08:30
PROVIDERS: PCP Family Medicine; Referring Provider Internal Medicine Endocrinology, Diabetes & Metabolism; Visit Provider Internal Medicine Endocrinology, Diabetes & Metabolism
DX: E05.00 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xic crisis or storm (principal)
CPT/HCPCS: 36415; 84439; 84443; 84481

== ENCOUNTER → 2025-03-15 | Outpatient (CLI) | payer OTHER, SELFPAY ==
[2025-03-15 11:51] LABS: Free T3 7.3 pg/mL (2.18-3.98); Thyroid Stim Hormone (TSH) < 0.005 uIU/mL (0.300-4.200)
== END | disposition home or self-care (01) ==
LOC: MTLAB 08:31
PROVIDERS: PCP Family Medicine; Referring Provider Internal Medicine Endocrinology, Diabetes & Metabolism; Visit Provider Internal Medicine Endocrinology, Diabetes & Metabolism
DX: E05.00 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xic crisis or storm (principal)
CPT/HCPCS: 36415; 84439; 84443; 84481

== ENCOUNTER → 2025-03-28 | Outpatient (CLI) | payer OTHER, SELFPAY ==
[2025-03-28 12:04] LABS: Free T3 7.8 pg/mL (2.18-3.98); Thyroid Stim Hormone (TSH) < 0.005 uIU/mL (0.300-4.200)
== END | disposition home or self-care (01) ==
LOC: MTLAB 08:41
PROVIDERS: PCP Family Medicine; Referring Provider Nurse Practitioner Family; Visit Provider Nurse Practitioner Family
DX: E05.00 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xic crisis or storm (principal)
CPT/HCPCS: 36415; 84439; 84443; 84481

== ENCOUNTER → 2025-04-13 | Outpatient (CLI) | payer OTHER, SELFPAY ==
[2025-04-13 13:16] LABS: Free T3 6.1 pg/mL (2.18-3.98); Thyroid Stim Hormone (TSH) < 0.005 uIU/mL (0.300-4.200)
== END | disposition home or self-care (01) ==
LOC: MTLAB 10:09
PROVIDERS: PCP Family Medicine; Referring Provider Internal Medicine Endocrinology, Diabetes & Metabolism; Visit Provider Internal Medicine Endocrinology, Diabetes & Metabolism
DX: E05.00 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xic crisis or storm (principal)
CPT/HCPCS: 36415; 84439; 84443; 84481

== ENCOUNTER → 2025-04-27 | Outpatient (CLI) | payer OTHER, SELFPAY ==
[2025-04-27 13:00] LABS: Free T3 4.9 pg/mL (2.18-3.98)
--- OUTSIDE RECORDS SUMMARY | 2025-04-27 17:35 | XMS RPT_ITS | CCD ---
Author Organization [facility] Care Team Providers Care Ship Cleaner Name Role Phone Care Physician, No Primary Primary Care Provider Unavailable Care Physician, No Primary Referring Provider Un available Dr. Kirby Burrows Attending Provider Care Physician, No Primary Referring Provider Un available Dr. Kirby Burrows Attending Provider [phone] DO Nacho Ferrera M Primary Care Provider [phone] DO Nacho Ferrera M Primary Care Provider [phone] DO Nacho Ferrera M Referring Provider Dr. Kirby Burrows Attending Provider Sandy Dawn DO Primary Care Provider DO Nacho Ferrera M Primary Care Provider [phone] DO Nacho Ferrera M Referring Provider Dr. Kirby Burrows Attending Provider ADEBAYO Reich Attending Provider ANCHO FERRERA DO Primary Care Physician DO Nacho Ferrera M Primary Care Provider [phone] DO Iban Nacoh M Referring Provider MARYCARMEN Orta Attending Provider [phone] Kirby Burrows Attending Provider MD Yony Phan Primary Care Provider [phone] NACHO FERRERA DO Primary Care Unavailable TINO CHRISTIANSON Attending Unavailable INNA BUSTILLOS DO Attending Unavailable NACHO FERRERA DO Primary Care Unavailable Nacho Ferrera DO Unavailable Iban DO, Nacho Alegria Primary Care Provider ZOLTON, INNA DO Admitting Unavailable ZOLTON, INNA DO Attending Unavailable ZOLTON, INNA DO Primary Care Unavailable REICH, DANDY CNM Admitting Unavailable REICH, DANDY CNM Attending Unavailable REICH, DANDY CNM Primary Care Unavailable Peiffer DO, Sandy L. Primary Care Provider Diana LYLES, Karie Burden Unavailable Grace LYLES, Pedro Delacruz Unavailable Jazmyne Cuevas APRN, CNP Unavailable PEDRO EDWARDS Attending Unavailable ZOLTON, INNA Referring Unavailable PEIFFER, SANDY Primary Care Unavailable JAZMYNE ARGUETA Attending Unavailable PEDRO EDWARDS Attending Unavailable PEIFFER, SANDY Primary Care Unavailable PEDRO EDWARDS Attending Unavailable PEDRO EDWARDS Admitting Unavailable PEIFFER, SANDY Primary Care Unavailable NO PRIMARY CARE, MD Primary Care Unavailable SARIAH CONCEPCION Attending Unavailable ZOLTON, INNA R Referring Unavailable ZOLTON DO, INNA Attending Unavailable IBAN DO, NACHO Primary Care Unavailable Yony Phan MD Primary Care Provider Dr. Kirby Burrows MD Attending Provider Dr. Kirby Burrows MD Referring Provider Yony Phan MD Referring Provider [phone] David HUBBARD-C, Earnestine Attending Provider Yony Phan MD Primary Care Provider Dr. Kirby Burrows MD Attending Provider [phone] Dr. Kirby Burrows MD Referring Provider NACHO FERRERA Primary Care Unavailabl e DEE GLASGOW Attending Unavailable NACHO FERRERA Primary Care UnavailDEE Motley Referring Unavailable DEE GLASGOW Attending Unavailable DANIEL BOURGEOIS Referring Unavailable NACHO FERRERA Primary Care Unavailabl e NACHO FERRERA AIRAM Primary Care Unavailabl e DEE GLASGOW Attending Unavailable NACHO FERRERA AIRAM Primary Care UnavailDEE Motley Referring Unavailable Bravo CORE BAKER-C, Zuleyma Attending Provider Bravo CORE BAKER-CZuleyma Referring Provider Emilie LYLES, Yony Primary Care Provider King RAFAL, Dr. Orr Attending Provider Dr. Kirby Burrows MD Referring Provider [phone] Emilie, Chalon Primary Care Unavailable Markos, Kirby Attending Unavailable Markos, Kirby Referring Unavailable Emilie, Chalon Primary Care Unavailable Markos, Kirby Attending Unavailable Markos, Kirby Referring Unavailable Emilie, Chalon Primary Care Unavailable Markos, Kirby Attending Unavailable Markos, Kirby Referring Unavailable Emilie, Chalon Primary Care Unavailable Markos, Kirby Attending Unavailable Markos, Kirby Referring Unavailable Emilie, Chalon Primary Care Unavailable Emilie, Chalon Referring Unavailable Earnestine Hernandez Attending Unavailable Emilie, Chalon Primary Care Unavailable Emilie, Chalon Referring Unavailable Markos, Kirby Attending Unavailable Emilie, Chalon Referring Unavailable Emilie, Chalon Primary Care Unavailable ReichDandy Attending Unavailable Emilie, Chalon Primary Care Unavailable Emilie, Chalon Referring Unavailable Markos, Kirby Attending Unavailable Bravo, Zuleyma Attending Unavailable Emilie, Chalon Primary Care Unavailable Bravo, Zuleyma Referring Unavailable Emilie, Chalon Primary Care Unavailable Markos, Kirby Attending Unavailable Markos, Kirby Referring Unavailable Emilie, Chalon Primary Care Unavailable Markos, Kirby Referring Unavailable Markos, Kirby Attending Unavailable Emilie, Chalon Primary Care Unavailable Dandy Reich Consulting Unavailable Markos, Kirby Referring Unavailable Markos, Kirby Attending Unavailable Emilie, Chalon Primary Care Unavailable Markos, Kirby Attending Unavailable Markos, Kirby Referring Unavailable Emilie, Chalon Primary Care Unavailable Markos, Kirby Attending Unavailable Markos, Kirby Referring Unavailable Allergies Allergy Classification Reported Allergen(s) Allergy Type Date of Onset Reaction(s) Facility (4 sources) Gluten Propensity to adverse reactions 11-03-2024 [facility] Medications Current Medications Medication Drug Class(es) Dates Sig (Normalized) Sig (Original) acetaminophen 325 mg oral tablet (5 sources) Start: 11-06-2024 End: 11-16-2024 take 2 tablets by mouth every six hours as needed for pain acetaminophen (Tylenol) 325 MG tablet Take 2 tablets (650 mg) by mouth every 6 hours as needed for mild pain (1-3) for up to 10 days. 30 tablet 11/06/2024 4:17 PM EST 11/06/2024 11/16/2024 Active Start: 11-06-2024 End: 11-06-2024 take 1000 mg by mouth once, then take 4000 mg by mouth every twenty-four hours 1,000 mg, Oral, Once, On Wed11/06/24 at 1200, For 1 dose, Preprocedure, Maximum dose of acetaminophen is 4000 mg from all sources in 24 hours. Do not administer if patient has taken tylenol acetaminophen 325 mg / HYDROcodone bitartrate 5 mg oral tablet (1 source) Opioid Agonist Start: 03-23-2025 End: 03-28-2025 take 1 tablet by mouth every eight hours as needed for pain HYDROcodone-acetaminophen (NORCO) 5-325 mg per tablet Indications: Glenoid labral tear, right, initial encounter , Tendinopathy of right rotator cuff Take 1 tablet by mouth every 8 hours as needed for pain for up to 5 days. 15 tablet 03/23/2025 03/28/2025 Active Budesonide (11 sources) Corticosteroid budesonide (RHIN OCORT NASAL) Use in the nose once daily. Active budesonide (RHIN OCORT NASAL) Use in the nose once daily. 0 Active Comment on above: Use in the nose once daily. Desogestrel-Ethinyl Estradiol (3 sources) Progestin, Estrogen Start: 5 take 0.15 tablet by mouth once daily Desogestrel-Ethinyl Estradiol (Apri) 0.15-0.03 mg tablet Active 1 {tbl} PO daily February 15, 2025 12:00am docusate sodium 100 mg oral capsule (3 sources) Start: End: 5 take 1 capsule by mouth twice daily in the evening docusate sodium (Colace) 100 MG capsule Take 1 capsule (100 mg) by mouth 2 times daily for 10 days. 20 capsule 11/06/2024 4:17 PM EST 11/06/2024 11/16/2024 Active glucosamine 500 mg oral tablet (3 sources) take 500 mg by mouth once daily Glucosamine HCl (GLUCOSAMINE PO) Take 500 mg by mouth daily. Active ibuprofen 600 mg oral tablet (6 sources) Nonsteroidal Anti-inflammatory Drug Start: 4 End: 5 take 1 tablet by mouth every six hours as needed for pain ibuprofen 600 MG tablet Take 1 tablet (600 mg) by mouth every 6 hours as needed for mild pain (1-3) for up to 10 days. 30 tablet 11/06/2024 4:17 PM EST 11/06/2024 11/16/2024 Active take 2 tablets by [facility] every eight hours as needed for pain ibuprofen 200 MG tablet Take 400 mg by mouth every 8 hours as needed for mild pain (1-3). Active Magnesium (3 sources) take 240 mg by mouth once daily MAGNESIUM PO Take 240 mg by mouth daily. Active Acworth-3 Fatty Acids (Fish Oil Concentrate) 1,000 mg capsule (16 sources) Start: 12-12-2019 take 1 capsule by mouth once daily Acworth-3 Fatty Acids (Fish Oil Concentrate) 1,000 mg capsule Active 1000 mg PO DAILY December 12, 2019 1:00am Start: 12-12-2019 take 1 capsule by [facility] once daily Acworth-3 Fatty Acids (Fish Oil Concentrate) 1,000 mg capsule Active 1000 MG PO DAILY December 12, 2019 12:00am Start: 12-12-2019 take 1 capsule by [facility] once daily Acworth-3 Fatty Acids (Fish Oil Concentrate) 1,000 mg capsule Active 1000 MG PO DAILY December 12, 2019 1:00am Acworth-3 Fatty Acids (Fish Oi l) 1000 MG capsule delayed-release (3 sources) Acworth-3 Fatty Ac ids (Fish Oil) 1000 MG capsule delayed-release Take by mouth daily. Active OMEGA-3 FATTY ACIDS/FISH OIL (OMEGA 3 FISH OIL ORAL) (11 sources) take 1200 mg by mouth once daily OMEGA-3 FATTY ACIDS/FISH OIL (OMEGA 3 FISH OIL ORAL) Take 1,200 mg by mouth once daily. Active take 1200 mg by mouth once daily OMEGA-3 FATTY ACIDS/FISH OIL (OMEGA 3 FISH OIL ORAL) Take 1,200 mg by mouth once daily. 0 Active Comment on above: [facility] oxyCODONE hydrochloride 5 mg oral tablet (2 sources) Opioid Agonist Start: End: 025 take 1 tablet by mouth every six hours as needed for pain oxyCODONE (Roxicodone) 5 MG immediate release tablet Take 1 tablet (5 mg) by mouth every 6 hours as needed for severe pain (7-10) for up to 5 days. 12 tablet 11/06/2024 4:17 PM EST 11/06/2024 11/11/2024 Active [id number] Fum-Folic Ac-Om3 (One A Day Women's Dha) 28 mg iron- 800 mcg combo pack (4 sources) Start: [id number] Fum-Folic Ac-Om3 (One A Day Women's Dha) 28 mg iron- 800 mcg combo pack Active NMA PO July 28, 2024 12:00am Vit-Fe Fumarate-FA ( PO) (3 sources) Vit-Fe Fumarate-FA ( PO) Take by mouth. Active Probiotic Product (PROBIOTIC PO) (3 sources) Probiotic Produc t (PROBIOTIC PO) Take by mouth. Active propylthiouracil 50 mg oral tablet (20 sources) Thyroid Hormone Synthesis Inhibitor Start: take 2 tablets by mouth once daily, then take 3 tablets by mouth once daily Propylthiouracil 50 mg tablet Active 0 PO daily March 28, 2025 4:37pm 100 mg, alternating with 150 mg orally daily; Start: 08-25-2024 End: 09-14-2024 take 1 tablet by mouth twice daily Propylthiouracil 50 mg tablet Discontinued 50 mg PO TWICE A DAY August 25, 2024 9:55am September 14, 2024 1:29pm Start: 03-09-2024 End: 08-25-2024 take 2 tablets by mouth twice daily in the morning, then take 1 tablet by mouth twice daily in the evening Propylthiouracil 50 mg tablet Discontinued 0 PO TWICE A DAY March 09, 2024 8:49am August 25, 2024 9:56am 100 mg am 50 mg pm orally twice a day; Start: 02-21-2024 End: 03-09-2024 take 1 tablet by mouth twice daily Propylthiouracil 50 mg tablet Discontinued 100 mg PO TWICE A DAY 120 February 21, 2024 12:00am March 09, 2024 8:49am Start: 02-21-2024 End: 03-09-2024 take 100 mg by mouth twice daily in the morning, then take 50 mg by mouth twice daily in the evening Propylthiouracil Active 0 PO TWICE A DAY March 09, 2024 8:49am 100 mg am 50 mg pm orally twice a day; Start: 11-08-2023 End: 03-28-2025 take 1 tablet by mouth once daily, then take 1 tablet by mouth twice daily Propylthiouracil 50 mg tablet Discontinued 0 PO daily January 08, 2025 2:27pm March 28, 2025 4:39pm 50 mg, alternating with 50 mg bid orally daily; sulfacetamide sodium 80 mg/ml / sulfur 40 mg/ml medicated liquid soap (11 sources) Sulfonamide Antibacterial Start: 10-25-2017 SULFACLEANSE 8-4 8-4 % susp Apply 1 application to affected area once daily. 10/25/2017 Active Comment on above: Apply 1 application to affected area once daily. ubidecarenone 10 mg oral capsule (4 sources) Start: 07-28-2024 Coenzyme Q10 (Co Q-10) 10 mg capsule Active 10 mg PO ONCE July 28, 2024 12:00am vitamin b12 1 mg oral tablet (11 sources) Vitamin B12 take 1 tablet by mouth once daily cyanocobalamin (VITAMIN B-12) 1,000 mcg tab Take 1,000 mcg by mouth once daily. Active Comment on above: Take 1,000 mcg by [facility] once daily. Completed/Discontinued Medications Medication Drug Class(es) Dates Sig (Normalized) Sig (Original) ALPRAZolam 0.25 mg disintegrating oral tablet (2 sources) Benzodiazepine Start: 11-06-2024 End: 11-06-2024 take 0.25 mg by mouth once as needed for anxiety 0.25 mg, Oral, Once PRN, anxiety, Starting on Wed11/06/24 at 1155, For 1 dose, Preprocedure, Please do not administer prior to obtaining consent and / or history and physical. amoxicillin 875 mg / clavulanate 125 mg oral tablet (4 sources) Penicillin-class Antibacterial Start: 04-19-2024 End: 07-28-2024 Amoxicillin-Pot Clavulanate 875-125 mg tablet Discontinued 1 {tbl} PO Q12H April 19, 2024 12:00am July 28, 2024 2:12pm aprepitant 40 mg oral capsule (2 sources) Substance P/Neurokinin-1 Receptor Antagonist Start: 11-06-2024 End: 11-06-2024 take 40 mg by mouth once 40 mg, Oral, Once, On Wed11/06/24 at 1300, For 1 dose, Preprocedure Start: 11-06-2024 End: 11-06-2024 take 40 mg by mouth once 40 mg, Oral, Once, On Wed at 1300, For 1 dose, Preprocedure calcium chloride 0.0014 meq/ml / potassium chloride 0.004 meq/ml / sodium chloride 0.103 meq/ml / sodium lactate 0.028 meq/ml injectable solution (4 sources) Start: 11-06-2024 End: 11-06-2024 take 125 mL intravenously every hour 125 mL/hr, IntraVENous, Continuous, Starting on Wed11/06/24 at 1430, Recovery (only) cetirizine hydrochloride 10 mg oral capsule (20 sources) Histamine-1 Receptor Antagonist Start: 04-21-2021 End: 02-15-2025 take 1 capsule by mouth once daily as needed Cetirizine (Zyrtec) 10 mg capsule Discontinued 10 mg PO DAILY as needed April 21, 2021 12:00am February 15, 2025 8:35am cetirizine HCl ( ZYRTEC ORAL) Take by mouth. Active cetirizine HCl ( ZYRTEC ORAL) Take by mouth. 0 Active Comment on above: Take by mouth. chlorhexidine gluconate 20 mg/ml medicated pad (2 sources) Start: 11-06-2024 End: 11-06-2024 Topical, PRN, no prior CHG bath to planned surgical site, Starting on Wed11/06/24 at 1154, For 1 dose, Preprocedure, Chlorhexidine Cloth 2% topically to planned surgical site once PRN for outpatients who did not perform CHG bath/shower as instructed or for ED patients and inpatients citalopram 20 mg oral tablet (20 sources) Serotonin Reuptake Inhibitor Start: 04-16-2022 End: 04-08-2023 Citalopram 20 mg tablet Discontinued NMA PO April 16, 2022 12:00am April 08, 2023 8:04am Start: 04-16-2022 End: 04-08-2023 Citalopram Discontinued TAB PO April 16, 2022 12:00am April 08, 2023 8:04am Start: 10-21-2021 End: 04-16-2022 take 1 tablet by mouth once daily Citalopram (Celexa) 10 mg tablet Discontinued 10 mg PO DAILY October 21, 2021 1:00am April 16, 2022 8:06am 1 ml diphenhydrAMINE hydrochloride 50 mg/ml cartridge (2 sources) Histamine-1 Receptor Antagonist Start: 11-06-2024 End: 11-06-2024 12.5 mg, IntraVENous, Once PRN, itching, Starting on Wed11/06/24 at 1426, For 1 dose, Recovery (only) 1 ml ePHEDrine sulfate 50 mg/ml injection (2 sources) alpha-Adrenergic Agonist, beta-Adrenergic Agonist, Norepinephrine Releasing Agent Start: 11-06-2024 End: 11-06-2024 inject 25 mg by intramuscular injection once 25 mg, IntraMUSCular, Once, On Wed11/06/24 at 1830, For 1 dose, Recovery (only) Norethindrone-E.Estr adiol-Iron (16 sources) Estrogen Start: 04-21-2021 End: 10-08-2022 Norethindrone-E. Estradiol-Iron 1.5 mg-30 mcg (21)/75 mg (7) tablet Discontinued 1 {tbl} PO DAILY April 21, 2021 12:00am October 08, 2022 9:12am Start: 04-21-2021 End: 10-08-2022 take 1 tablet by mouth once daily Norethindrone-E.Estradiol-Iron Discontin ued 1 TABLET PO DAILY April 21, 2021 12:00am October 08, 2022 9:12am Start: 04-21-2021 End: 10-08-2022 take 1 tablet by mouth once daily Norethindrone-E.Estradiol-Iron Discontin ued 1 TABLET PO DAILY April 20, 2021 11:00pm October 08, 2022 8:12am Start: 04-21-2021 take 1 tablet by catherine once daily Norethindrone-E.Estradiol-Iron Active 1 TABLET PO DAILY April 20, 2021 11:00pm Start: 04-21-2021 take 1 tablet by catherine th once daily Norethindrone-E.Estradiol-Iron Active 1 TABLET PO DAILY April 21, 2021 12:00am ethinyl estradiol 0.03 mg / norethindrone acetate 1.5 mg oral tablet (20 sources) Estrogen Start: 12-12-2019 End: 10-08-2022 Norethindrone Ac-Eth Estradiol ( ()) 1.5-30 mg-mcg tablet Discontinued 1 {tbl} PO DAILY December 12, 2019 1:00am October 08, 2022 9:12am take 1 tablet by catherine th once daily, then take 0.05 tablet by mouth once Norethindrone Acet-Ethinyl Est (,) 1-20 mg-mcg per tablet Take 1 tablet by mouth once daily. Active take 1 tablet by catherine th once daily, then take 0.05 tablet by mouth once Norethindrone Acet-Ethinyl Est (,) 1-20 mg-mcg per tablet Take 1 tablet by mouth once daily. 0 Active Comment on above: Take 1 tablet by catherine th once daily. 2 ml fentaNYL 0.05 mg/ml injection (4 sources) Opioid Agonist Start: 11-06-2024 End: 11-06-2024 50 mcg, IntraVENous, Every 5 min PRN, severe pain (7-10), Starting on Wed11/06/24 at 1426, For 3 doses, Recovery (only), Phase I and Phase II- Initial therapy for severe pain (7-10). Restricted to a 90 minute time frame starting when the patient can verbally state their pain score. If after 2 doses the pain score does not decrease by more than one point, then call the provider. If oral meds are utilized, do not return to initial therapy medications. Start: 11-06-2024 End: 11-06-2024 25 mcg, IntraVENous, Every 5 min PRN, moderate pain (4-6), Starting on Wed11/06/24 at 1426, For 3 doses, Recovery (only), Phase I and Phase II- Initial therapy for moderate pain (4-6). Restricted to a 90 minute time frame starting when the patient can verbally state their pain score. If after 2 doses the pain score does not decrease by more than one point, then call the provider. If oral meds are utilized, do not return to initial therapy medications. FIDELINA (16 sources) Start: 04-21-2021 End: 09-09-2023 FIDELINA Discontinued PO April 12:00am September 09, 2023 3:01pm Start: 04-21-2021 End: 09-09-2023 FIDELINA Discontinued PO April 11:00pm September 09, 2023 2:01pm Start: 04-21-2021 FIDELINA Active PO April 20, 2021 11:00pm Start: 04-21-2021 FIDELINA Active PO April 21, 2021 12:00am glycopyrrolate 1 mg oral tab let (16 sources) Start: 04-21-2021 End: 10-08-2022 Glycopyrrolate 1 mg tablet Discontinued NMA PO April 21, 2021 12:00am October 08, 2022 9:12am Start: 04-21-2021 End: 10-08-2022 Glycopyrrolate Discontinued EACH PO April 21, 2021 12:00am October 08, 2022 9:12am labetalol (Normodyne,Trandate) injection 5 mg (2 sources) Start: 11-06-2024 End: 11-06-2024 labetalol (Normodyne,Trandate) injection 5 mg methIMAzole 10 mg oral tablet (20 sources) Thyroid Hormone Synthesis Inhibitor Start: 08-30-2023 methIMAzole 10 mg oral tablet Dose : 10 mg = 1 tab(s), Oral, q8h, # 270 tab(s), 0 Refill(s) Start Date: 08/30/23 Status: Ordered Quantity: 270.0 Unit: tab(s) Repeat number: 1 Start: 03-05-2023 End: 02-21-2024 take 2 tablets by mouth once daily Methimazole 10 mg tablet Discontinued 20 mg PO DAILY July 01, 2023 10:59am September 09, 2023 3:27pm Start: 03-05-2023 End: 02-21-2024 take 20 mg by mouth once daily Methimazole Discontinue d 20 MG PO DAILY July 01, 2023 10:59am September 09, 2023 3:27pm Start: 02-08-2023 End: 03-05-2023 Methimazole 10 mg tablet Discontinued 15 mg PO DAILY February 08, 2023 7:39am March 05, 2023 9:29pm Start: 02-08-2023 End: 03-05-2023 take 15 mg by mouth once daily Methimazole Discontinue d 15 MG PO DAILY February 08, 2023 7:39am March 05, 2023 9:29pm Start: 08-16-2020 End: 10-21-2020 Methimazole 10 mg tablet Discontinued 0 PO DAILY October 10, 2020 2:11pm October 21, 2020 9:23am 10mg 6 days a week and 5 mg 1 days per week. Start: 12-14-2019 End: 08-16-2020 Methimazole 10 mg tablet Discontinued 0 PO DAILY December 14, 2019 4:17pm August 16, 2020 8:02am 10mg 4 days a week and 5 mg 3 days per week. Start: 12-12-2019 End: 12-14-2019 take 1 tablet by mouth every other day, then take 5 mg by mouth once daily Methimazole 10 mg tablet Discontinued 0 PO DAILY December 12, 2019 1:00am December 14, 2019 4:16pm 10mg every other day, 5mg on the other days PO daily; Start: 08-04-2019 End: 02-08-2023 take 1 tablet by mouth once daily metHIMazole (TAPAZOLE) 10 mg tablet Indications: Graves disease Take 1 tablet by mouth once daily. 90 tablet 1 08/04/2019 Active Comment on above: Take 1 tablet by [facility] once daily. 2 ml ondansetron 2 mg/ml injection (7 sources) Serotonin-3 Receptor Antagonist Start: 11-06-2024 End: 11-06-2024 4 mg, IntraVENous, Once PRN, nausea, Starting on Wed11/06/24 at 1426, For 1 dose, Recovery (only), Initial antiemetic therapy. Start: 12-29-2023 End: 03-09-2024 take 1 tablet by mouth every six hours as needed for nausea and vomiting Ondansetron Hcl 4 mg tablet Discontinued 4 mg PO EVERY 6 HOURS as needed for nausea and vomiting December 29, 2023 1:00am March 09, 2024 8:38am oseltamivir 75 mg oral capsule (5 sources) Neuraminidase Inhibitor Start: 12-29-2023 End: 01-03-2024 take 1 capsule by mouth every twelve hours Oseltamivir (Tamiflu) 75 mg capsule Discontinued 75 mg PO Q12H 10 5 December 29, 2023 1:00am January 02, 2024 1:00am January 03, 2024 1:05am 5 ml sodium chloride 9 mg/ml injection (20 sources) Start: 11-06-2024 End: 11-06-2024 10 mL, IntraVENous, Every 12 hours scheduled (2 times per day), First dose on Wed11/06/24 at 2100, Recovery (only) Start: 11-06-2024 End: 11-06-2024 500 mL, IntraVENous, at 1,00 0 mL/hr, Administer over 0.5 Hours, PRN, Anti-nausea, Starting on Wed11/06/24 at 1426, Recovery (only), Indications: Anti-nausea Start: 11-06-2024 End: 11-06-2024 take 100 mL intravenously every hour as needed, then take 20 mL intravenously every hour as needed 5-250 mL/hr, IntraVENous, PRN, if patient receiving piggyback infusions and maintenance fluids are not ordered OR KVO fluids to protect IV site / prevent frequent line interruptions / long duration, Starting on Wed11/06/24 at 1155, Preprocedure, For piggyback infusion, administer at same rate as piggyback for a total of 25 mL. Enter 25 mL into dose field and piggyback rate into rate field of order. If piggyback is infusing at a rate less than 100 mL/hr, enter 25 mL into dose field and 100 mL/hr into rate field of order. For KVO fluids, enter rate of 20 mL/hr or less into rate field of order. Start: 11-06-2024 End: 11-06-2024 5-40 mL, IntraVENous, PRN, l ine care, After every IV line use, Starting on Wed11/06/24 at 1155, Preprocedure, For Line Patency: Peripheral IV = 5 mL; Midline or Central Line = 10 mL/lumen. If following IV push medication, administer flush at same rate as the IV push. Flush volume is determined by type of infusion therapy being given. For non-viscous solutions use: Peripheral IV = 5 mL Midline or Central Line = 10 mL/lumen For viscous solutions (i.e. blood components, parenteral nutrition, contrast media, or after obtaining blood sample) use: Peripheral IV = 10 mL Midline or Central Line = 20 mL/lumen Start: 11-06-2024 End: 11-06-2024 take 5-40 mL intravenously every twelve hours 5-40 mL, IntraVENous, Every 12 hours, First dose on Wed11/06/24 at 1200, Preprocedure, For Line Patency: Peripheral IV = 5 mL; Midline or Central Line = 10 mL/lumen. If following IV push medication, administer flush at same rate as the IV push. Flush volume is determined by type of infusion therapy being given. For non-viscous solutions use: Peripheral IV = 5 mL Midline or Central Line = 10 mL/lumen For viscous solutions (i.e. blood components, parenteral nutrition, contrast media, or after obtaining blood sample) use: Peripheral IV = 10 mL Midline or Central Line = 20 mL/lumen Problems Active Problems Problem Classification Problem Date Documented Da te Episodic/Chronic Contraceptive and procreative management (7 sources) Patient encounter status; Translations: [Encounter for other general counseling and advice on procreation] 11-11-2023 Episodic Comment on above: to discuss with endo changing medications for hyperthyroidism-start on PNV-reviewed natural cycles and ways to optimize fertility. Female infertility (7 sources) Primary female infertility; Translations: [Female infertility, unspecified] Onset: 10-30-2024 10-29-2024 Chronic Influenza (6 sources) Influenza due to Influenza A virus; Translations: [Influenza due to other identified influenza virus with other respiratory manifestations] 12-29-2023 Episodic Menstrual disorders (1 source) Amenorrhea, unspecified; Translations: [Amenorrhea, unspecified] Onset: 08-26-2024 Chronic Osteoarthritis (20 sources) Arthritis of left elbow; Translations: [Primary osteoarthritis, left elbow] Onset: 04-07-2016 04-07-2016 Chronic Other aftercare (1 source) Surgical follow-up; Translations: [Encounter for follow-up examination after completed treatment for conditions other than malignant neoplasm] 11-14-2024 Episodic Other and unspecified benign neoplasm (3 sources) Benign neoplasm, unspecified site; Translations: [Benign neoplasm of unspecified site] Onset: 10-30-2024 10-29-2024 Episodic Other connective tissue disease (3 sources) Supraspinatus tendinitis 08-30-2023 Episodic Other connective tissue disease (5 sources) Disorder of rotator cuff; Translations: [Unspecified disorder of synovium and tendon, right shoulder] 10-18-2024 Episodic Other connective tissue disease (1 source) Unspecified disorder of synovium and tendon, right shoulder; Translations: [Tendinopathy of right rotator cuff] Onset: 03-23-2025 Episodic Other female genital disorders (1 source) Mass of ovary; Translations: [Other noninflammatory disorders of ovary, fallopian tube and broad ligament] 10-29-2024 Episodic Other female genital disorders (2 sources) Other noninflammatory disorders of ovary, fallopian tube and broad ligament; Translations: [Other noninflammatory disorders of ovary, fallopian tube and broad ligament] Onset: 10-30-2024 Episodic Other gastrointestinal disorders (12 sources) Celiac disease; Translations: [Celiac disease] Onset: 04-17-2019 05-21-2023 Chronic Other gastrointestinal disorders (2 sources) Other fecal abnormalities; Translations: [Other fecal abnormalities] Onset: 01-27-2024 Episodic Other gastrointestinal disorders (3 sources) Finding of abdominopelvic segment of trunk; Translations: [Intra-abdominal and pelvic swelling, mass and lump, unspecified site] Onset: 11-06-2024 11-06-2024 Episodic Other gastrointestinal disorders (1 source) Intra-abdominal and pelvic swelling, mass and lump, unspecified site; Translations: [Intra-abdominal and pelvic swelling, mass and lump, unspecified site] Onset: 11-06-2024 Episodic Other lower respiratory disease (5 sources) Cough; Translations: [Cough] 12-29-2023 Episodic Other nervous system disorders (13 sources) Paresthesia; Translations: [Paresthesia of skin] 10-08-2022 Episodic Other nervous system disorders (2 sources) Paresthesia of skin; Translations: [Disturbance of skin sensation] Episodic Other non-traumatic joint disorders (11 sources) Loose body in left elbow joint; Translations: [Loose body in left elbow] Onset: 08-05-2021 08-05-2021 Chronic Other upper respiratory disease (5 sources) Respiratory tract congestion; Translations: [Other specified diseases of upper respiratory tract] 12-29-2023 Episodic Otitis media and related conditions (4 sources) Acute right otitis media; Translations: [Otitis media, unspecified, right ear] 04-19-2024 Episodic Residual codes; unclassified (5 sources) Generalized aches and pains; Translations: [Pain, unspecified] 12-29-2023 Episodic Residual codes; unclassified (1 source) Pain; Translations: [Pain, unspecified] 10-03-2024 Episodic Residual codes; unclassified (8 sources) Infertile 01-01-2025 Episodic Comment on above: Following with [facility] supply and quality fair, semen analysis abnormal prev. ap utd, declines sti screening. Sprains and strains (6 sources) Glenoid labrum tear; Translations: [Superior glenoid labrum lesion of right shoulder, initial encounter] Onset: 03-23-2025 10-18-2024 Episodic Thyroid disorders (20 sources) Thyrotoxicosis due to Graves' disease; Translations: [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xic crisis or storm] Onset: 10-08-2018 Chronic Unclassified (2 sources) Post-op Visit; Translations: [Post-op Visit] Onset: 11-14-2024 Past or Other Problems Problem Classification Problem Date Documented Da te Episodic/Chronic Residual codes; unclassified (1 source) Pain, unspecified; Translations: [Pain] Onset: 10-18-2024 Episodic Results Test Name Value Interpretation Reference Range Facility Free T3on 04-13-2025 Free T3 [Mass/Vol] 6.1 pg/mL High 2.18-3.98 [facility] Comment on above: Performed By: #### L [id number], L506.0400, L501.80937 #### [facility] [place], [address] Free [id number] By: Kirby Burrows on 04-13-2025 Free T3 [Mass/Vol] 6.1 pg/mL High 2.18-3.98 [facility] T4 Free Directon 04-13-2025 T4 FREE DIRECT 1.70 ng/dL High 0.76-1.46 [facility] Comment on above: Performed By: #### L [id number], L506.0400, L501.77012 #### [facility] [address] [place], [address] T4 freeOrdered By: Kirby Burrows on 04-13-2025 Free T4 [Mass/Vol] 1.70 ng/dL High 0.76-1.46 [facility] TSH DL <= 0.005 mIU/L QnOrde red By: Kirby Burrows on 04-13-2025 TSH Qn < 0.005 uIU/mL Low 0.300-4.200 [facility] Thyroid Stim Hormone (TSH)on 04-13-2025 TSH Qn m[IU]/L Low 0.300-4.200 [facility] Comment on above: Performed By: #### L [id number], L506.0400, L501.77878 #### [facility] [address] [place], [address] Free T3on 03-28-2025 Free T3 [Mass/Vol] 7.8 pg/mL High 2.18-3.98 [facility] Comment on above: Performed By: #### L [id number], L506.0400, L501.85834 #### [facility] [address] [place], [address] Free [id number] By: Elpidio on 03-28-2025 Free T3 [Mass/Vol] 7.8 pg/mL High 2.18-3.98 [facility] T4 Free Directon 03-28-2025 T4 FREE DIRECT 1.80 ng/dL High 0.76-1.46 [facility] Comment on above: Performed By: #### L [id number], L506.0400, L501.92852 #### [facility] [address] [place], [address] T4 freeOrdered By: Zuleyma And shreyaon on 03-28-2025 Free T4 [Mass/Vol] 1.80 ng/dL High 0.76-1.46 [facility] TSH DL <= 0.005 mIU/L QnOrde red By: Zuleyma Sahffer on 03-28-2025 TSH Qn < 0.005 uIU/mL Low 0.300-4.200 [facility] Thyroid Stim Hormone (TSH)on 03-28-2025 TSH Qn m[IU]/L Low 0.300-4.200 [facility] Comment on above: Performed By: #### L [id number], L506.0400, L501.31667 #### [facility] [address] [place], [address] Biologics Injection: R claire brito 03-23-2025 Dee Glasgow DO 03/23/2025 2:15 PM Biologics Injection: R shoulder 03/23/2025 2:14 PM The procedure site was prepped in the usual sterile fashion. Previously completed treatments/injections: Platelet Rich Plasma Site: R shoulder PRP Device/Protocol: Emcyte LP-PRP Right PRP injected: 5ml Total injected: 5ml Details:Guidance: Ultrasound Musculoskeletal ultrasound was utilized to successfully localize placement of the injection needle at the appropriate site. Ultrasound images demonstrating local vasculature and demonstrating injection of solution were saved. Outcome: Tolerated well, no immediate complications Post-injection instructions were reviewed with the patient and the patient voiced understanding of these instructions. Informed Consent Consent Obtained: Written Joy Protocol A moment to CARE was completed. SIGN IN Personnel directly involved with the procedure wore the appropriate PPE. Special Equipment: N/A Patient/Surrogate Stated/Verified: Intended procedure, Date of , Patient name and Relevant allergies TIME OUT Relevant labs, photos, and/or imaging studies have been reviewed. Intended patient and procedure match source documents. Consent obtained and matches the intended procedure. Correct side/site marked and visible. Medications required for procedure verified. No fire risk assessment and interventions applicable. No implant(s) inserted. SIGN OUT No specimen collected. All instruments, equipment, possible retained foreign bodies accounted for. The post-procedure POC has been communicated to the patient or surrogate. No post-procedure POC communication to the patient's multidisciplinary team (including the bedside nurse for hospitalized patients) applicable. [facility] CNOVon 03-23-2025 CNOV Office Visit (ORAVON ) RITIKA VEGA ([id number]) 1985 F Date Time Provider Department 03/23/25 11:30 AM DEE GLASGOW ORACOSTA During your visit today, we recorded the following information about you: Dee Glasgow, 03/23/2025 2:15 PM Signed Patient presents for a right shoulder PRP injection. Biologics Injection: R shoulder 03/23/2025 2:14 PM The procedure site was prepped in the usual sterile fashion. Previously completed treatments/injections: Platelet Rich Plasma Site: R shoulder PRP Device/Protocol: Emcyte LP-PRP Right PRP injected: 5ml Total injected: 5ml Details:Guidance: Ultrasound Musculoskeletal ultrasound was utilized to successfully localize placement of the injection needle at the appropriate site. Ultrasound images demonstrating local vasculature and demonstrating injection of solution were saved. Outcome: Tolerated well, no immediate complications Post-injection instructions were reviewed with the patient and the patient voiced understanding of these instructions. Informed Consent Consent Obtained: Written Joy Protocol A moment to CARE was completed. SIGN IN Personnel directly involved with the procedure wore the appropriate PPE. Special Equipment: N/A Patient/Surrogate Stated/Verified: Intended procedure, Date of , Patient name and Relevant allergies TIME OUT Relevant labs, photos, and/or imaging studies have been reviewed. Intended patient and procedure match source documents. Consent obtained and matches the intended procedure. Correct side/site marked and visible. Medications required for procedure verified. No fire risk assessment and interventions applicable. No implant(s) inserted. SIGN OUT No specimen collected. All instruments, equipment, possible retained foreign bodies accounted for. The post-procedure POC has been communicated to the patient or surrogate. No post-procedure POC communication to the patient's multidisciplinary team (including the bedside nurse for hospitalized patients) applicable. (S48.430T) Glenoid labral tear, right, initial encounter (primary encounter diagnosis) (M67.911) Tendinopathy of right rotator cuff Dee Glasgow DO 03/23/2025 Referring Provider: DEE GLASGOW [[id number]] Allergies As of Date: 03/23/2025 (No Known Allergies) Date Reviewed: 03/23/2025 Reviewed by: Dee Glasgow, - Fully Assessed Primary Visit Diagnosis:Glenoid labral tear, right, initial encounter [S43.431A] Other Visit Diagnosis:Tendinopathy of right rotator cuff [M67.911] Order(s): SHOULDER-INJECTION RT (POC) CHANDRAKANT USE ONLY [2921666] Order #: [id number]. #:[id number]: 1 HYDROcodone-acetaminop hen (NORCO) 5-325 mg per tabletTake 1 tablet by mouth every 8 hours as needed for pain for up to 5 days.Disp: 15 tabletRfl: 0 CONSULT TO PHYSICAL THERAPY [9032] Order #: [id number]: 1 FUTURE Biologics Injection: R shoulder [KOH352] Order #: [id number] Prescriptions as of 03/23/2025 - HYDROcodone-acetaminop hen (NORCO) 5-325 mg per tablet Take 1 tablet by mouth every 8 hours as needed for pain for up to 5 days. - cetirizine HCl (ZYRTEC ORAL) Take by mouth. - metHIMazole (TAPAZOLE) 10 mg tablet Take 1 tablet by mouth once daily. - budesonide (RHINOCORT NASAL) Use in the nose once daily. - cyanocobalamin (VITAMIN B-12) 1,000 mcg tab Take 1,000 mcg by mouth once daily. - Norethindrone Acet-Ethinyl Est (,) 1-20 mg-mcg per tablet Take 1 tablet by mouth once daily. - SULFACLEANSE 8-4 8-4 % susp Apply 1 application to affected area once daily. - OMEGA-3 FATTY ACIDS/FISH OIL (OMEGA 3 FISH OIL ORAL) Take 1,200 mg by mouth once daily. 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 Encounter Status:Closed by DEE GLASGOW on 03/23/25 Normal [facility] SHOULDER-INJECTION RT (PO C) CHANDRAKANT USE ONLYon 03-23-2025 [facility] Free T3on 03-15-2025 Free T3 [Mass/Vol] 7.3 pg/mL High 2.18-3.98 [facility] Comment on above: Performed By: #### L [id number], L506.0400, L501.68184 #### [facility] [address] [facility] [id number] Free [id number] By: Kirby Burrows on 03-15-2025 Free T3 [Mass/Vol] 7.3 pg/mL High 2.18-3.98 [facility] T4 Free Directon 03-15-2025 T4 FREE DIRECT 1.90 ng/dL High 0.76-1.46 [facility] Comment on above: Performed By: #### L [id number], L506.0400, L501.80122 #### [facility] [address] [place], [place], [address] T4 freeOrdered By: Kirby Burrows on 03-15-2025 Free T4 [Mass/Vol] 1.90 ng/dL High 0.76-1.46 [facility] TSH DL <= 0.005 mIU/L QnOrde red By: Kirby Burrows on 03-15-2025 TSH Qn < 0.005 uIU/mL Low 0.300-4.200 [facility] Thyroid Stim Hormone (TSH)on 03-15-2025 TSH Qn m[IU]/L Low 0.300-4.200 [facility] Comment on above: Performed By: #### L [id number], L506.0400, L501.39012 #### [facility] [address] [place], [address] Endocrinology Visit Reporton 02-15-2025 Endocrinology Visit Report [facility] [address] [place] [address] OFFICE VISIT Date of Service: 02/15/25 MR#: [id number] Acct: [id number] Name: RITIKA VEGA Rep #: [id number] : 1985 Provider: Carmen Fortune Age/Sex: 39/F Location: [facility] Status: Signed Intake Vital Signs 08/17/24 08:34 01/01/25 09:05 02/15/25 08:35 Height 5 ft 11 in 5 ft 11 in 5 ft 11 in Weight: 161 lb BMI 22.4 BP 109/75 Blood Pressure Location Rt brachial Position Sitting Pulse 65 Pulse Source Monitor Pulse Oximetry (%) 98 Oxygen Delivery Method room air Intake Visit Reasons: 6 M FU Chief Complaint: Hyperthyroidism Is patient in pain?: No Allergies No Known Allergies Allergy (Verified 02/15/25 08:35) Medications ???Medication ???Instructions ???Recorded ???Confirmed ???Type omega-3 fatty acids 1,000 mg 1,000 mg PO DAILY 12/12/19 5 History capsule (Fish Oil Concentrate) coenzyme Q10 10 mg capsule (Co 10 mg PO ONCE 07/28/24 02/15/25 Hi story Q-10) vits 75-iron 28 mg-folic pkg PO 07/28/24 02/15/25 History acid 800 mcg-omega-3 oral combo pack (One A Day Women's DHA) propylthiouracil 50 mg tablet See Rx Instructions PO QDAY #90 02/15/25 Rx tabs desogestrel 0.15 mg-ethinyl 1 tab PO QDAY 04/10/25 04/10/25 Hi story estradiol 0.03 mg tablet (Apri) PFSH Medical History Paresthesia Graves disease Celiac disease Heart murmur GI problem Anemia Seasonal allergies Surgical History Hx of LASIK H/O elbow surgery H/O left knee surgery Family History Mother Fibromyalgia Depression Hypertension Hyperlipidemia Grandmother Breast cancer Diabetes Heart disease Skin cancer Father Hypertension Grandfather CVA (cerebral vascular accident) Social History adopted: No household members: spouse housing: house current occupational status: employed 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 current occupational exposures/hazards: No pets and animals: Yes sexually active: Yes Smoking Status: Never smoker second hand exposure: No alcohol intake: current alcohol intake frequency: holidays/special occasions only substance use type: does not use diet: gluten free well-balanced diet: daily or most days caffeine: Yes Type: coffee Number of servings: 1 eating out: rarely or never during the past year weight has: remained stable what type of physical activity do you participate in: other frequency: 3-4 times per week dina/church: Judaism seatbelt use: always do you feel safe at home: Yes 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 She is on PTU for Grave's disease. She is doing prep for IVF. She has 2 embryos and waiting on genetics testing. She has palpitations while on OCP. ROS Const Constitutional: No fatigue, weight change or change in appetite Eyes Eyes: No change in vision ENT ENT: No dizziness/vertigo or difficulty swallowing Cardio Cardiology: Positive for palpitations; No chest pain at rest, chest pain with exertion or shortness of breath Musc Musculoskeletal: No abnormal gait, joint pain, numbness or tingling Neuro Neurology: No abnormal gait, memory loss, numbness or tingling Psych Psychiatric: No change in appetite, No memory loss and No Thoughts of harming yourself/Others Resp Respiratory: No cough, chest congestion or shortness of breath Gastro GI: No abdominal pain, constipation, diarrhea or difficulty swallowing Genitourinary-Female: No burning urination Skin Skin: No itchy eyes or wounds Endo Endocrine: No fatigue or weight change Aller/Imm Allergy/Immunologic: No itchy eyes Exam Const General: cooperative, healthy appearing, comfortable, no acute distress, well developed and not cushingoid Nutritional Appearance: well nourished Orientation: alert, awake and oriented x3 HENMT Head: normal to inspection Ears: hearing grossly normal bilaterally Nose: external nose normal Mouth: oral mucosae normal Eyes General: appearance normal, both eyes and all related structures Alignment and Position: alignment normal Periorbital: periorbital findings normal Eyelids: eyelids normal Conjunctivae: conjunctivae normal Neck Neck: normal visual inspection Neck mass: No Thyroid: diffusely enlarged Carotids: no bruits Lymphatic: no lymphadenopathy noted Chest Chest palpation inspection: normal in (more content not included)... Normal [facility] Free T3on 01-08-2025 Free T3 [Mass/Vol] 3.4 pg/mL Normal 2.18-3.98 [facility] Comment on above: Performed By: #### L [id number], L506.0400, L501.81546 #### [facility] [address] [place], [place], [address] Free [id number] By: Kirby Burrows on 01-08-2025 Free T3 [Mass/Vol] 3.4 pg/mL 2.18-3.98 [facility] Free Triiodothyronine (T3) pg/dL 3.4 pg/mL 2.18-3.98 [facility] T4 Free Directon 01-08-2025 T4 FREE DIRECT 1.30 ng/dL Normal 0.76-1.46 [facility] Comment on above: Performed By: #### L [id number], L506.0400, L501.48922 #### [facility] [address] [place], [place], [id number] T4 freeOrdered By: Kirby Burrows on 01-08-2025 Free T4 [Mass/Vol] 1.30 ng/dL 0.76-1.46 [facility] TSH DL <= 0.005 mIU/L QnOrde red By: Kirby Burrows on 01-08-2025 Thyroid Stimulating Hormone (TSH) 0.102 uIU/mL Low 0.300-4.200 [facility] TSH Qn 0.102 uIU/mL Low 0.300-4.200 [facility] Thyroid Stim Hormone (TSH)on 01-08-2025 TSH 0.102 uIU/mL Low 0.300-4.200 [facility] Comment on above: Performed By: #### L [id number], L506.0400, L501.20630 #### [facility] [address] [place], [address] MULLERon 01-06-2025 [facility] 1.29 ng/mL Normal [facility] Comment on above: Result Comment: For assays employing antibodies, the possibility exists for interference by heterophile antibodies in the samples.1 1.Westley Ambrose. Interferences in Immunoassays - still a threat. Clin. Chem. 2000; 46: 7108-0349. This test was developed and its performance characteristics determined by [employer]. It has not been cleared or approved by the Food and Drug Administration. Reference Range: Females 36 - 40y: 0.42 - 8.34 Median 1.69 AMH concentrations of >= 1.06 ng/mL is correlated with a better response to ovarian stimulation, produced more retrievable oocytes and higher odds of live according to Joeyer et al. Fertility and Sterility. 2010: 94:1930-0019. The current AMH test method correlates with the study method with a slope of 0.94. Females at risk of ovarian hyperstimulation syndrome or polycystic ovarian syndrome (PCOS) may exhibit elevated serum AMH concentrations. AMH levels from PCOS patients may be 2 to 5 fold higher than age-appropriate reference interval values. Granulosa cell tumors of the ovary may secrete AMH along with other tumor markers. Elevated AMH is not specific for malignancy, and the assay should not be used exclusively to diagnose or exclude an AMH-secreting ovarian tumor. Performed At: [facility] [address] [place] [id number] Chris Newton MD Ph:[phone] Performed By: #### [id number] #### [id number] [place], [place] [address] Program Management Intern Office Visit Reporton 01-01-2025 Program Management Intern Office Visit Report [facility] [address], [address] [place] [address] OFFICE VISIT Date of Service: 01/01/25 MR#: [id number] Acct: [id number] Name: RITIKA VEGA Rep #: [id number] : 1985 Provider: ELIECER Cortez Age/Sex: 39/F Location: [facility] Status: Signed Intake Vital Signs 04/19/24 07:00 08/17/24 08:34 01/01/25 09:02 01/01/25 09:05 Height 5 ft 11 in 5 ft 11 in 5 ft 11 in 5 ft 11 in Weight: 160 lb BMI 22.3 BP 120/75 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 Required: No Is patient in pain?: No Allergies No Known Allergies Allergy (Verified 01/01/25 09:03) Medications ???Medication ???Instructions ???Recorded ???Confirmed ???Type omega-3 fatty acids 1,000 mg 1,000 mg PO DAILY 12/12/19 5 History capsule (Fish Oil Concentrate) cetirizine 10 mg capsule (Zyrtec) 10 mg PO DAILY PRN 04/21/2101/01 History coenzyme Q10 10 mg capsule (Co 10 mg PO ONCE 07/28/24 01/01/25 Hi story Q-10) vits 75-iron 28 mg-folic pkg PO 07/28/24 01/01/25 History acid 800 mcg-omega-3 oral combo pack (One A Day Women's DHA) propylthiouracil 50 mg tablet 50 mg PO QDAY #90 tabs 09/14/24 Rx Is last menstrual period known: Yes Last Menstrual Period: 12/09/24 Post menopausal: No Patient : No : No PFSH Medical History Paresthesia Graves disease Celiac disease Heart murmur GI problem Anemia Seasonal allergies Surgical History Hx of LASIK H/O elbow surgery H/O left knee surgery Family History Mother Fibromyalgia Depression Hypertension Hyperlipidemia Grandmother Breast cancer Diabetes Heart disease Skin cancer Father Hypertension Grandfather CVA (cerebral vascular accident) Social History (Updated 01/01/25 @ 09:05 by Shonda Becerra) adopted: No household members: spouse housing: house service: No current occupational status: employed 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 current occupational exposures/hazards: No pets and animals: Yes sexually active: Yes Smoking Status: Never smoker second hand exposure: No alcohol intake: current alcohol intake frequency: holidays/special occasions only substance use type: does not use diet: gluten free well-balanced diet: daily or most days caffeine: Yes Type: coffee Number of servings: 1 eating out: rarely or never during the past year weight has: remained stable what type of physical activity do you participate in: other frequency: 3-4 times per week dina/church: Judaism seatbelt use: always do you feel safe at home: Yes 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 She follows with [facility] for fertility. She will be undergoing a second round of IVF in a few months. She reports she also had a dermoid removed from her Right ovary--Oct 2024. Otherwise no issues or concerns today. Last PAP: 11/2023; negative History of abnormal PAP: none Last mammogram: none History of abnormal mammogram: none Colon cancer screening: None Other preventative health care screenings: Primary Care Provider: Dr. Chapman. Female Reproductive History Last Menstrual Period: 12/09/24 Cycle Length: 21-35 Bleeding Duration: 4 Questions: metorrhagia: No, sexually active: Yes, dyspareunia: No and PCB: No ROS Const Constitutional: Denies chills, fatigue, fever(s), headache(s) or weight loss Eyes Eyes: Denies change in vision ENT ENT: Denies dizziness Cardio Card: Denies chest pain at rest or palpitations Resp Resp: Denies cough GI GI: Denies abdominal pain, constipation or nausea : Denies difficulty voiding, dysuria, hematuria, nipple discharge, pelvic pain, prolapse symptoms, urinary incontinence, vaginal discharge, vaginal dryness, vaginal odor or vaginal pruritus Skin Skin/Breast: Denies alopecia, rash, breast mass, breast pain, breast skin changes or nipple discharge Neuro Neuro: Denies dizziness Psych Psych: Denies anxiety or depression Endo Endo: Denies cold intolerance, excessive sweating or heat intolerance Exam Const General: cooperative, healthy appearing, comfortable, no acute distress, well groomed and well hydrated Nutritional Appearance: well nourished Orientation: alert, awake and oriented x3 HENMT Head: normal to inspection and normocephalic Ears: hearing grossly normal bilaterally and external ears normal Nose: external nose normal Face and sinus: normal facial exam Eyes General: appearance normal, both eyes and all relate (more content not included)... Normal [facility] Direct serum free thyroxine (FT4) measurementOrdered By: Kirby Burrows on 12-08-2024 Free T4 [Mass/Vol] 1.11 ng/dL 0.76-1.46 [facility] Free T3on 12-08-2024 Free T3 [Mass/Vol] 3.4 pg/mL Normal 2.18-3.98 [facility] Comment on above: Performed By: #### L 500.4050, L501.9520, L506.0400, L501.55687 #### [facility] Laboratory [address] [place], [address] Free [id number] By: Kirby Burrows on 12-08-2024 Free T3 [Mass/Vol] 3.4 pg/mL 2.18-3.98 [facility] Free Triiodothyronine (T3) pg/dL 3.4 pg/mL 2.18-3.98 [facility] Serum or plasma thyroid stim ulating hormone (TSH) measurement (units/volume)Ordered By: Kirby Burrows on 12-08-2024 TSH Qn 0.108 uIU/mL Low 0.358-3.740 [facility] T4 Free Directon 12-08-2024 T4 FREE DIRECT 1.11 ng/dL Normal 0.76-1.46 [facility] Comment on above: Performed By: #### L 500.4050, L501.9520, L506.0400, L501.11321 #### [facility] Laboratory [address] [place], [address] TSH QnOrdered By: Kirby Burrows on 12-08-2024 Thyroid Stimulating Hormone (TSH) 0.108 uIU/mL Low 0.358-3.740 [facility] Thyroid Stim Hormone (TSH)on 12-08-2024 TSH 0.108 uIU/mL Low 0.358-3.740 [facility] Comment on above: Performed By: #### L 500.4050, L501.9520, L506.0400, L501.57443 #### [facility] Laboratory [address] [place], [address] Office Visiton 11-14-2024 Follow-up visit [id number] Ritika Vega 1985 F Date Provider Department Center 11/14/2024 JAZMYNE [facility] MOTHER'S HELPER None Family History Problem Relation Age of Onset Depression Mother Hypertension Mother Arthritis Father Hypertension Father Heart disease Maternal Grandfather Anesthesia problems Maternal Grandmother Diabetes Maternal Grandmother Heart disease Maternal Grandmother Heart disease Paternal Grandfather Stroke Paternal Grandfather Cancer Paternal Grandmother Family Status - Relation Status Age at Mother Father Maternal Grandfather Maternal Grandmother Paternal Grandfather Paternal Grandmother Level of Service:54064 [place] POSTOP FOLLOW UP VISIT RELATED TO ORIGINAL PX Reason for Visit and Comments: Post-op Visit [559] - No incision issues, no concerns with bowel or bladder function. Normal [facility] Progress Noteon 11-14-2024 Progress Note GYNECOLOGIC ONCOLOGY - FOLLOW-UP VISIT CHIEF COMPLAINT/PUPROSE OF VISIT: Ritika Vega is a 38 y.o. female 1 week s/p LAPAROSCOPIC OVARIAN CYSTECTOMY. INTERVAL HISTORY: Overall doing well since surgery. 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 She is having some discomfort at the umbilical incision. Denies signifcant pain, bleeding. Tolerating regular diet, denies N/V. Denies issues with BM or urination. ECOG PS 0 ROS: 12 point review of systems performed, pertinent items are noted in HPI; all other review of systems were negative. MEDICATIONS: Current Outpatient Medications Medication Sig Dispense Refill ibuprofen 600 MG tablet Take 1 tablet (600 mg) by mouth every 6 hours as needed for mild pain (1-3) for up to 10 days. 30 tablet 0 MAGNESIUM PO Take 240 mg by mouth daily. Acworth-3 Fatty Acids (Fish Oil) 1000 MG capsule delayed-release Take by mouth daily. Vit-Fe Fumarate-FA ( PO) Take by mouth. Probiotic Product (PROBIOTIC PO) Take by mouth. propylthiouracil (PTU) 50 MG tablet Take 50 mg by mouth 1 (one) time. acetaminophen (Tylenol) 325 MG tablet Take 2 tablets (650 mg) by mouth every 6 hours as needed for mild pain (1-3) for up to 10 days. (Patient not taking: Reported on 11/14/2024) 30 tablet 0 docusate sodium (Colace) 100 MG capsule Take 1 capsule (100 mg) by mouth 2 times daily for 10 days. (Patient not taking: Reported on 11/14/2024) 20 capsule 0 Glucosamine HCl (GLUCOSAMINE PO) Take 500 mg by mouth daily. ibuprofen 200 MG tablet Take 400 mg by mouth every 8 hours as needed for mild pain (1-3). (Patient not taking: Reported on 11/14/2024) No current facility-administered medications for this visit. VITAL SIGNS: Blood pressure 124/78, pulse 61, height 1.803 m (5' 11), weight 72.6 kg (160 lb), last menstrual period 10/17/2024. No data recorded PHYSICAL EXAM: General: Alert and oriented. in no acute distress. Able to ambulate on and off the exam table without difficulty. Heart: Regular rate Lungs: Easy respirations Abdomen: Soft, Non-tender, non-distended. Skin: No significant rashes, petechia or purpura. Well healed surgical incisions without erythema, induration, or drainage. Bruising around umbilical incision. Extremities: No cyanosis, clubbing, or edema Mental: Mood and affect appropriate for situation Pelvis: Def DIAGNOSTICS: I reviewed the imaging studies and agree with the interpretation as recorded. I reviewed the pertinent laboratory and diagnostic data. ASSESSMENT/PLAN: - Doing well post-op - Reviewed final pathology, benign - Continue restrictions until 4 weeks postoperative - Follow-up with Dr. Bustillos and with primary return checker for routine care. I explained diagnosis and treatment plan; patient expressed understanding and was in agreement with the plan. Jazmyne Argueta, GEAR FINISHER - 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 [facility] 36on 11-09-2024 36 Called pt with [facility], pt verbalized understanding and had no further questions. Normal [facility] HCG ( test) Ql (U)o n 11-06-2024 Beta HCG ( test) Ql (U) [id number] [facility] Interpretation and review of laboratory results Normal [facility] NEGATIVE QC Pass [facility] Health POSITIVE QC Pass [facility] Preg Test, Ur Negative Negative [facility] Healt [facility] Nursing Noteon 11-06-2024 Nursing Note Family/visitor at bedside with patient. Normal [facility] Op Noteon 11-06-2024 Op Note Date: 11/06/2024 Location: [facility] OR Name: Ritika Vega, : 1985, Diagnosis Pre-op Diagnosis * Intra-abdominal and pelvic swelling, mass and lump, unspecified site [R19.00] Post-op Diagnosis * Intra-abdominal and pelvic swelling, mass and lump, unspecified site [R19.00] Procedures LAPAROSCOPIC OVARIAN CYSTECTOMY 64870 - NM OVARIAN CYSTECTOMY UNI/BI Surgeons * Pedro Edwards - Primary Procedure Summary Anesthesia: General ASA: II Estimated Blood Loss: 20 mL Drains: * None in log * Specimens ID Source Type Tests Collected By Collected At Frozen? Priority Lab ID 1 Peritoneal Washings Wash NON-GYNECOLOGIC CYTOLOGY Pedro Edwards MD 11/06/24 1340 Description: PELVIC WASHINGS 2 Ovary, Right Tissue TISSUE EXAM Pedro Edwards MD 11/06/24 1409 Description: RIGHT OVARIAN CYST Staff: Buyer Planner: Angelina Clifton RN; Evelia Beasley RN Scrub Person: Dread Preciado Findings: Enlarged right ovary with a smooth ovarian surface. There were two separate cystic areas. 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 The other consistent with a simple benign ovarian cyst. The left tube and ovary were grossly normal in appearance. The right tube was normal in appearance as was the uterine serosa. The upper abdomen including bilateral hemidiaphragms, liver capsule, stomach and omentum were normal in appearance. Complications: None apparent; patient tolerated the procedure well. Specimens Collected: Order Name Source Comment Collection Info Order Time NON-GYNECOLOGIC CYTOLOGY Peritoneal Washings Pre-op diagnosis: Intra-abdominal and pelvic swelling, mass and lump, unspecified site [R19.00] Collected By: Pedro Edwards MD 11/06/2024 1:40 PM TISSUE EXAM Ovary, Right Pre-op diagnosis: Intra-abdominal and pelvic swelling, mass and lump, unspecified site [R19.00] Collected By: Pedro Edwards MD 11/06/2024 2:09 PM Wound Class: Class I: Clean Blood Products: None Prophylactic Antibiotics: Pre-operative antibiotics were not given because antibiotics are not indicated for this procedure. [facility] Op Note Date: 11/06/2024 Location: [facility] OR Name: Ritika Vega, : 1985, Diagnosis Pre-op Diagnosis * Intra-abdominal and pelvic swelling, mass and lump, unspecified site [R19.00] Post-op Diagnosis * Intra-abdominal and pelvic swelling, mass and lump, unspecified site [R19.00] Procedures LAPAROSCOPIC RIGHT OVARIAN CYSTECTOMY 19756 - NM OVARIAN CYSTECTOMY UNI/BI Surgeons * Pedro Edwards - Primary Procedure Summary Anesthesia: General ASA: II Estimated Blood Loss: 20 mL Drains: Urethral Catheter (Active) Specimens ID Source Type Tests Collected By Collected At Frozen? Priority Lab ID 1 Peritoneal Washings Wash NON-GYNECOLOGIC CYTOLOGY Pedro Edwards MD 11/06/24 1340 Description: PELVIC WASHINGS 2 Ovary, Right Tissue TISSUE EXAM Pedro Edwards MD 11/06/24 1409 Description: RIGHT OVARIAN CYST Staff: Buyer Planner: Angelina Clifton RN; Evelia Beasley RN Scrub Person: Dread Preciado Findings: Enlarged right ovary with a smooth ovarian surface. There were two separate cystic areas. 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 The other consistent with a simple benign ovarian cyst. The left tube and ovary were grossly normal in appearance. The right tube was normal in appearance as was the uterine serosa. The upper abdomen including bilateral hemidiaphragms, liver capsule, stomach and omentum were normal in appearance. Complications: None apparent; patient tolerated the procedure well. Specimens Collected: Order Name Source Comment Collection Info Order Time HCG QUALITATIVE URINE Urine, Clean Catch Discontinue this order if: 1. patient is older than 55 years old 2. has had a prior hysterectomy 3. today's surgery is for treatment of known or suspected ectopic or loss. 4. patient has a known intrauterine but this is a needed surgery. 11/06/2024 11:55 AM POTASSIUM WITH MG REFLEX For patients on dialysis to draw potassium day of surgery 11/06/2024 11:55 AM PROTHROMBIN TIME If patient on coumadin within 4 days prior. 11/06/2024 11:55 AM NON-GYNECOLOGIC CYTOLOGY Peritoneal Washings Pre-op diagnosis: Intra-abdominal and pelvic swelling, mass and lump, unspecified site [R19.00] Collected By: Pedro Edwards MD 11/06/2024 1:40 PM TISSUE EXAM Ovary, Right Pre-op diagnosis: Intra-abdominal and pelvic swelling, mass and lump, unspecified site [R19.00] Collected By: Pedro Edwards MD 11/06/2024 2:09 PM Wound Class: Class I: Clean Blood Products: None Prophylactic Antibiotics: Pre-operative antibiotics were not given because antibiotics are not indicated for this procedure. Description of Procedure: After informed, written consent was obtained, the patient was identified in the preoperative holding area and taken to the operating room where anesthesia was found be adequate. She was then prepped and draped in the usual sterile fashion in the dorsal lithotomy position with Ned stirrups. Care was taken to neither hyperextend or hyperflex the patient's hips or knees and her arms were tucked at the sides in a neutral position. A bivalve speculum was placed in patient's vagina and the anterior lip of the cervix was grasped with a single-tooth tenaculum. A Hulka uterine manipulator was placed without difficulty and all other instruments were removed from the patient's vagina. The Moraes catheter was placed using sterile technique. Attention was then turned to the patient's abdomen. Entry into the abdominal cavity was performed via the left upper quadrant approach with a 5 mm blunt Optiview trocar under direct visualization. Intra-abdominal placement confirmed prior to insufflating the abdomen with CO2 gas to a pressure of 15 mmHg. A survey of the patient's abdomen revealed the above-noted findings. The camera port and right lower quadrant ports were then placed under direct visualization with blunt trocars. The patient was then placed in Trendelenburg position and the bowel was displaced out of the pelvis. Pelvic washings were obtained. An incision was made on the ovarian serosa using cut current with the laparoscopic L hook. The incision was carried down to the level of the cyst capsule using cautery. The cyst was dissected from the surrounding ovarian stroma using blunt dissection and gentle traction. There was a small entry into the cyst cavity and clear fluid was encountered. There was only a minimal amount of drainage and the majority of the cyst was removed intact. Clinically the cyst was consistent with a mature cystic teratoma. There was a separate cystic structure on the cephalad inferior aspect of the right ovary. The above procedure was performed to remove this cyst. Clinically this was most consistent with a cystadenoma. The specimens were placed in a 10 mm Endo Catch bag for later specimen removal through the umbilical port under direct visualization. (more content not included)... Normal [facility] Progress Noteon 11-06-2024 Progress Note Patient feeling bett er after IM Ephedrine injection. Ambulated and ready to be discharged Normal [facility] Progress Note Per previous nursing note, patient was unable to stand due to nausea. She was placed back in bed with phase 2 monitoring with lights out to sleep. Family at bedside and call light within reach. Anesthesia paged for order of Ephedrine IM to help with nausea/vomiting. Patient states that every time she moves her head she gets really nauseated. Upon sitting on the side of bed, then upon standing, patient vomited. Normal [facility] Progress Note Patient states she i s feeling better. We will attempt to ambulate to restroom Normal [facility] Progress Note Discharge informatio n given to the patient. Patient and family verbalized understanding of information. All questions were answered at this time. Patient denies dizziness. Vital signs are stable. Normal [facility] [id number] 11-03-2024 [id number] Medication List Accurate as of November 03, 2024 9:24 AM. Always use your most recent med list. Fish Oil 1000 MG capsule delayed-release Medication Adjustments for Surgery: Hold morning of surgery GLUCOSAMINE PO Medication Adjustments for Surgery: Hold morning of surgery ibuprofen 200 MG tablet Notes to patient: Hold for 24 hours prior to surgery MAGNESIUM PO Medication Adjustments for Surgery: Hold morning of surgery PO Medication Adjustments for Surgery: Hold morning of surgery PROBIOTIC PO Medication Adjustments for Surgery: Hold morning of surgery propylthiouracil 50 MG tablet Commonly known as: PTU Medication Adjustments for Surgery: Take morning of surgery Shower with an antibacterial soap such as Dial or Safeguard. No makeup,lotion,powder,d eodorant or body sprays. No hair products. Remove all jewelry and leave it at home. You may brush your teeth,floss,use mouthwash morning of surgery. Do not wear contacts DOS. No alcohol or smoking 24 hours prior to surgery and nothing to eat after midnight. Up until 2 hours prior to you surgery time, you may have clear liquids. Water,apple juice, sprite, 7-up, natasha maik. Clear tea or black coffee. Gatorade/Powerade. No cream, no milk, no dairy. No jello, no soup broth or orange juice. No candy,mints or gum. No THC, smoking or alcohol for 24 hours prior to surgery. Please bring your [employer] [employer] [facility] Surgical folder with you day of surgery. Please bring photo ID and insurance information. Please arrange for someone to drive you home after your surgery and that there is a responsible person with your for 24 hours post discharge. On the day of discharge please arrange to have your transport arrive at 11am. You may take your prescription pain medication. You may take Tylenol for pain. NO Motrin, ibuprofen or Advil for 24 hours prior to surgery or longer if instructed by your surgeon. NO Aleve or naprosyn for 5 days prior to surgery or longer if instructed by your surgeon. NO MOBIC/MELOXICAM FOR 5 DAYS PRIOR TO SURGERY. DO NOT take aspirin or aspirin containing products for 5 days before surgery, or longer if instructed by your surgeon. Follow any instructions given to you by Dr. Jimenez If you have specific questions, please call your surgeon. Same day surgery will call the day before your surgery to verify time and date. You may use the [employer] parking located at the main entrance on [address] [facility] and take the H elevator to the first floor for same day surgery. Take a left after exiting the elevator and check in at the desk. Or- You may use the parking in the Main deck. Take the level one bridge to the H building and follow the signs for same day surgery. Check in at the desk. Normal [facility] 36on 10-31-2024 36 Called out to the patient to advised patient of scheduled PAT phone call, scheduled Saturday 11/03 at 0830. Patient agreed for call. Normal [facility] 36 S/w Amber verification of outpatient Cpt 58933, Plan coverage 11/08/2023 to current. CPT 88211 does not require prior authorization as long as Outpatient. Call reference# [id number]. Normal [facility] MR Shoulder - right WO contr shiloh 10-30-2024 IMPRESSION: Mild supraspinatus tendinosis with a low-grade partial-thickness tear. No high-grade or full-thickness rotator cuff tendon tear is identified. Possible superior glenoid labral tear. Concaving Machine Operator: YANG Transcribe Date/Time: Oct 30 2024 8:41A Dictated by : BHARATH FREGOSO MD This examination was interpreted and the report reviewed and electronically signed by: BHARATH FREGOSO MD on Oct 30 2024 8:47AM [facility] DIVISION OF RADIOLOGY * * *Final Report* * * DATE OF EXAM: Oct 30 2024 7:50AM [facility] 0240 - MRI SHOULDER WO IVCON RT / PROCEDURE REASON: multiple diagnoses * * * * Physician Interpretation * * * * EXAMINATION: MRI SHOULDER WO IVCON RT HISTORY: Rotator cuff tendinopathy. Shoulder pain. Labral tear. TECHNIQUE: Routine non-contrast MRI of the shoulder. COMPARISON: Right shoulder radiographs dated 10/18/2024. RESULT: TENDONS: Rotator cuff tendons: -Supraspinatus: Mild tendinosis with a low-grade partial-thickness articular sided tear at the anterior footprint. -Infraspinatus: Intact tendon -Subscapularis: Intact tendon -Teres Minor: Intact tendon Biceps (Long head) Tendon: Intact , with normal course MUSCLES: Rotator cuff muscles: -Supraspinatus: Preserved bulk and no fatty changes. -Infraspinatus: Preserved bulk and no fatty changes. -Subscapularis: Preserved bulk and no fatty changes. -Teres Minor: Preserved bulk and no fatty changes. Other muscles: Preserved signal and bulk in the deltoid. JOINTS: Glenohumeral Joint: -Labrum: Possible superior glenoid labral tear. -Cartilage: Low-grade chondral thinning. -Joint Fluid: No effusion . No synovitis. Acromioclavicular Joint: Normal BONES AND MARROW: No evidence of fracture or suspicious bone marrow replacing process OTHER: Subdeltoid/Subacromial Bursa: Normal Localizer images: No additional findings. DIVISION OF RADIOLOGY Provider, [facility] - 10/30/2024 * * *Final Report* * * DATE OF EXAM: Oct 30 2024 7:50AM [facility] 0240 - MRI SHOULDER WO IVCON RT / PROCEDURE REASON: multiple diagnoses * * * * Physician Interpretation * * * * EXAMINATION: MRI SHOULDER WO IVCON RT HISTORY: Rotator cuff tendinopathy. Shoulder pain. Labral tear. TECHNIQUE: Routine non-contrast MRI of the shoulder. COMPARISON: Right shoulder radiographs dated 10/18/2024. RESULT: TENDONS: Rotator cuff tendons: -Supraspinatus: Mild tendinosis with a low-grade partial-thickness articular sided tear at the anterior footprint. -Infraspinatus: Intact tendon -Subscapularis: Intact tendon -Teres Minor: Intact tendon Biceps (Long head) Tendon: Intact , with normal course MUSCLES: Rotator cuff muscles: -Supraspinatus: Preserved bulk and no fatty changes. -Infraspinatus: Preserved bulk and no fatty changes. -Subscapularis: Preserved bulk and no fatty changes. -Teres Minor: Preserved bulk and no fatty changes. Other muscles: Preserved signal and bulk in the deltoid. JOINTS: Glenohumeral Joint: -Labrum: Possible superior glenoid labral tear. -Cartilage: Low-grade chondral thinning. -Joint Fluid: No effusion . No synovitis. Acromioclavicular Joint: Normal BONES AND MARROW: No evidence of fracture or suspicious bone marrow replacing process OTHER: Subdeltoid/Subacromial Bursa: Normal Localizer images: No additional findings. IMPRESSION IMPRESSION: Mild supraspinatus tendinosis with a low-grade partial-thickness tear. No high-grade or full-thickness rotator cuff tendon tear is identified. Possible superior glenoid labral tear. Concaving Machine Operator: PSCB Transcribe Date/Time: Oct 30 2024 8:41A Dictated by : BHARATH FREGOSO MD This examination was interpreted and the report reviewed and electronically signed by: BHARATH FREGOSO MD on Oct 30 2024 8:47AM EST [facility] Radiology Study observation (narrative) [facility] MR Shoulder - right WO contr astOrdered By: [facility] Provider on 10-30-2024 [facility] MRI SHOULDER WO IVCON RTon 1 12-31-2023 MRI SHOULDER WO IVCON RT * * *Final Report* * * DATE OF EXAM: Oct 30 2024 7:50AM [facility] 0240 - MRI SHOULDER WO IVCON RT / PROCEDURE REASON: multiple diagnoses * * * * Physician Interpretation * * * * EXAMINATION: MRI SHOULDER WO IVCON RT HISTORY: Rotator cuff tendinopathy. Shoulder pain. Labral tear. TECHNIQUE: Routine non-contrast MRI of the shoulder. COMPARISON: Right shoulder radiographs dated 10/18/2024. RESULT: TENDONS: Rotator cuff tendons: -Supraspinatus: Mild tendinosis with a low-grade partial-thickness articular sided tear at the anterior footprint. -Infraspinatus: Intact tendon -Subscapularis: Intact tendon -Teres Minor: Intact tendon Biceps (Long head) Tendon: Intact , with normal course MUSCLES: Rotator cuff muscles: -Supraspinatus: Preserved bulk and no fatty changes. -Infraspinatus: Preserved bulk and no fatty changes. -Subscapularis: Preserved bulk and no fatty changes. -Teres Minor: Preserved bulk and no fatty changes. Other muscles: Preserved signal and bulk in the deltoid. JOINTS: Glenohumeral Joint: -Labrum: Possible superior glenoid labral tear. -Cartilage: Low-grade chondral thinning. -Joint Fluid: No effusion . No synovitis. Acromioclavicular Joint: Normal BONES AND MARROW: No evidence of fracture or suspicious bone marrow replacing process OTHER: Subdeltoid/Subacromial Bursa: Normal Localizer images: No additional findings. IMPRESSION: Mild supraspinatus tendinosis with a low-grade partial-thickness tear. No high-grade or full-thickness rotator cuff tendon tear is identified. Possible superior glenoid labral tear. Concaving Machine Operator: YANG Transcribe Date/Time: Oct 30 2024 8:41A Dictated by : BHARATH FREGOSO MD This examination was interpreted and the report reviewed and electronically signed by: BHARATH FREGOSO MD on Oct 30 2024 8:47AM EST [id number] Normal [facility] Office Visiton 10-30-2024 Follow-up visit [id number] Ritika Vega 1985 F Date Provider Department Center 10/30/2024 [id number], ROBIN*SHMG ACH MOTHER'S HELPER None Family History Problem Relation Age of Onset Depression Mother Hypertension Mother Arthritis Father Hypertension Father Heart disease Maternal Grandfather Anesthesia problems Maternal Grandmother Diabetes Maternal Grandmother Heart disease Maternal Grandmother Heart disease Paternal Grandfather Stroke Paternal Grandfather Cancer Paternal Grandmother Family Status - Relation Status Age at Mother Father Maternal Grandfather Maternal Grandmother Paternal Grandfather Paternal Grandmother Level of Service:48118 NM OFFICE/OUTPATIENT NEW MODERATE MDM 45 MINUTES Reason for Visit and Comments: Other [0] - Pelvic mass Normal [facility] Progress Noteon 10-30-2024 Progress Note Chief Complaint Patient presents with Other Pelvic mass HISTORY OF THE PRESENT ILLNESS: Ritika Vega is a pleasant 38 y.o. female who presents in consultation at the request of Dr. Bustillos for evaluation and management of the above. Being followed by [facility] for infertility. 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 Right ovary - 5 x 5.5 x 3.5cm. There was a 2.4cm enhancing nodule. Left ovary and uterus were wnl. Referred for ovarian cystectomy. Past Medical History: Diagnosis Date Arthritis 2019 Celiac disease 2013 Colon polyp 2023 Disease of thyroid gland Graves disease GI (gastrointestinal bleed) 2022 Hyperthyroidism Irregular heart beat Heart murmur Motion sickness PONV (postoperative nausea and vomiting) Celiac disease Thyroid disease Past Surgical History: Procedure Laterality Date COLONOSCOPY 2023 Polyp removed EYE SURGERY 2010 OTHER SURGICAL HISTORY 2007 Two left knee, two left elbow knee scope/ dislocation of elbow TONSILLECTOMY UPPER GASTROINTESTINAL ENDOSCOPY WISDOM TOOTH EXTRACTION Knee and elbow surgery Does well with anesthesia. Obstetrical History: G0 Family History Problem Relation Name Age of Onset Depression Mother Rhianna Vega Hypertension Mother Rhianna Gutierrezphrey Arthritis Father Anjel Vega Hypertension Father Anjel Vega Heart disease Maternal Grandfather Apolinar Lee Anesthesia problems Maternal Grandmother Cece Lee Diabetes Maternal Grandmother Cece Lee Heart disease Maternal Grandmother Cece Lee Heart disease Paternal Grandfather Zac Vega Stroke Paternal Grandfather Zac Vega Cancer Paternal Grandmother Jessica Vega Social History Socioeconomic History Marital status: Spouse name: Not on file Number of children: Not on file Years of education: Not on file Highest education level: Not on file Occupational History Not on file Tobacco Use Smoking status: Never Smokeless tobacco: Never Vaping Use Vaping status: Never Used Substance and Sexual Activity Alcohol use: Yes Alcohol/week: 1.0 standard drink of alcohol Types: 1 Glasses of wine per week Drug use: Never Sexual activity: Yes Partners: Male control/protection: None Other Topics Concern Not on file Social History Narrative Not on file Social Drivers of Health Financial Resource Strain: Not on file Food Insecurity: Not on file Transportation Needs: Not on file Physical Activity: Not on file Stress: Not on file Social Connections: Not on file Intimate Partner Violence: Not on file Housing Stability: Not on file Current Outpatient Medications on File Prior to Visit Medication Sig Dispense Refill propylthiouracil (PTU) 50 MG tablet Take 50 mg by mouth 1 (one) time. No current facility-administered medications on file prior to visit. Allergies as of 10/30/2024 (No Known Allergies) Review of Systems A 12 point review of systems was performed and is as per the history of the present illness, all other systems were reviewed and are negative. Vitals: 10/30/24 1515 BP: 133/85 Pulse: 62 Body mass index is 22.45 kg/m?. Physical Exam Vitals reviewed. Constitutional: General: She is not in acute distress. Appearance: Normal appearance. She is not ill-appearing, toxic-appearing or diaphoretic. HENT: Head: Normocephalic and atraumatic. Eyes: General: No scleral icterus. Extraocular Movements: Extraocular movements intact. Cardiovascular: Rate and Rhythm: Normal rate. Pulmonary: Effort: Pulmonary effort is normal. No respiratory distress. Abdominal: General: There is no distension. Palpations: Abdomen is soft. There is no mass. Tenderness: There is no abdominal tenderness. There is no guarding or rebound. Hernia: No hernia is present. Musculoskeletal: Right lower leg: No edema. Left lower leg: No edema. Skin: General: Skin is warm and dry. Coloration: Skin is not jaundiced or pale. Findings: No erythema. Neurological: General: No focal deficit present. Mental Status: She is alert. Motor: No weakness. Coordination: Coordination normal. Gait: Gait normal. Psychiatric: Mood and Affect: Mood normal. Behavior: Behavior normal. ASSESSMENT/PLAN: Diagnosis Plan 1. Ovarian mass 2. Mature cystic teratoma 3. Primary female infertility Ritika Vega is a 38 y.o. with primary infertility and a complex adnexal mass clinically consistent with a mature cystic teratoma. Plan for laparoscopic ovarian cystectomy. The risks of surgery were discussed, including but not limited to: bleeding, infection, injury to surrounding structures including, but not limited to bowel, bladder, ureters, blood vessels and nerves; medical complications including pneumonia, blood clots, heart attack, stroke, ; and anesthesia complications. Finally, we discussed the risk of possible need (more content not included)... [facility] 36on 10-26-2024 36 Called patient to schedule acid polymerization operator appointment. First available is 11/09/24. Patient wanted to know if you had anything sooner. I know you have pto and scheduled for surgery. I told patient I would see if we could do something sooner, but I told her I couldn't promise her anything. Is it okay to put her with Dr. Jimenez? [facility] CNOVon 10-18-2024 CNOV Office Visit (LOORRM ) RITIKA VEGA ([id number]) 1985 F Date Time Provider Department 10/18/24 10:30 AM DEE GLASGOWORRCarmen During your visit today, we recorded the following information about you: Dee Glasgow, DO 10/18/2024 3:46 PM Signed Ritika Vega is a patient of Nacho Ferrera DO. CHIEF COMPLAINT: Ritika Vega is a 38 year old female who presents today for new evaluation of right shoulder. 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 Has had PT, CSI in the past Last CSI was over 1 year ago, helped a few months Pain with certain motions, activities PHYSICAL EXAMINATION: SHOULDER EXAM Flexion: normal at 150-180 degrees Abduction: normal at 125-150 degrees External rotation: normal SC JOINT: no tenderness to palpation AC JOINT: no tenderness to palpation Scapula exam: normal examination of scapula with no dyskinetic motion noted Cristina Test / Empty Can Test (supraspinatus): positive for pain Resisted lateral rotation test (infraspinatus): positive for pain Belly press test (subscapualris): normal examination with no pain or weakness elicited Feldman's test: positive for pain with thumb down, relieved with thumb up IMAGING: Final results and radiologist's interpretation, available in the [facility] health record. Images were reviewed with the patient/family members in the office today. My personal interpretation of the performed imaging is no acute abnormality. CLINICAL IMPRESSION / ASSESSMENT: (S43.431A) Glenoid labral tear, right, initial encounter (primary encounter diagnosis) (M67.911) Tendinopathy of right rotator cuff RECOMMENDATION / PLAN: We have ordered and recommend an MRI of the right shoulder to further delineate pathology and to dictate our treatment plan of care. Patient has been instructed to schedule an office appointment after the advanced imaging is completed. At that visit, results of the advanced imaging will then be discussed with full explanation and treatment options. Advanced imaging ordered to rule-out labral tear. Discussed with her about the treatment options of PRP for the right shoulder. Would want to see the structure of the right shoulder before consider PRP She understands that the PRP is out of pocket Follow-up after MRI Procedures Verbal health education was given to patient. Patient verbalizes understanding and agrees with the treatment plan as detailed above. Dee Glasgow DO Allergies As of Date: 10/18/2024 (No Known Allergies) Date Reviewed: 10/18/2024 Reviewed by: Dee Glasgow DO - Fully Assessed Reason for Visit: New [514179] Pain (Shoulder Pain) [1343] Primary Visit Diagnosis:Glenoid labral tear, right, initial encounter [S43.431A] Other Visit Diagnosis:Tendinopathy of right rotator cuff [M67.911] Order(s):MRI SHOULDER WO IVCON RIGHT [[id number]] Order #: [id number] FUTURE Prescriptions as of 10/18/2024 - cetirizine HCl (ZYRTEC ORAL) Take by mouth. - metHIMazole (TAPAZOLE) 10 mg tablet Take 1 tablet by mouth once daily. - budesonide (RHINOCORT NASAL) Use in the nose once daily. - cyanocobalamin (VITAMIN B-12) 1,000 mcg tab Take 1,000 mcg by mouth once daily. - Norethindrone Acet-Ethinyl Est (JUNE,) 1-20 mg-mcg per tablet Take 1 tablet by mouth once daily. - SULFACLEANSE 8-4 8-4 % susp Apply 1 application to affected area once daily. - OMEGA-3 FATTY ACIDS/FISH OIL (OMEGA 3 FISH OIL ORAL) Take 1,200 mg by mouth once daily. 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 Loose body in left elbow [M24.022] 08/05/2021 Encounter Status:Closed by DEE GLASGOW on 10/18/24 Normal [facility] Direct serum free thyroxine (FT4) measurementOrdered By: Kirby Burrows on 10-18-2024 Free T4 [Mass/Vol] 0.87 ng/dL 0.76-1.46 [facility] Free T3on 10-18-2024 Free T3 [Mass/Vol] 2.6 pg/mL Normal 2.18-3.98 [facility] Comment on above: Performed By: #### L 501.9520, L506.0400, L501.40002 #### [facility] [address] [place], [place], [address] Free [id number] By: Kirby Burrows on 10-18-2024 Free Triiodothyronine (T3) pg/dL 2.6 pg/mL 2.18-3.98 [facility] T4 Free Directon 10-18-2024 T4 FREE DIRECT 0.87 ng/dL Normal 0.76-1.46 [facility] Comment on above: Performed By: #### L 501.9520, L506.0400, L501.95394 #### [facility] [address] [place], [place], [address] TSH QnOrdered By: Kirby Burrows on 10-18-2024 Thyroid Stimulating Hormone (TSH) 0.640 uIU/mL 0.358-3.740 [facility] Thyroid Stim Hormone (TSH)on 10-18-2024 TSH 0.640 uIU/mL Normal 0.358-3.740 [facility] Comment on above: Performed By: #### L 501.9520, L506.0400, L501.12568 #### [facility] [address] [place], [place], [address] XR SHLDR >/=3V AP/GWEN AP/OTH R RTon 10-18-2024 XR SHLDR >/=3V AP/GWEN AP/OTHR RT * * *Final Report* * * DATE OF EXAM: Oct 18 2024 9:56AM LZX 5253 - XR SHLDR >/=3V AP/GWEN AP/OTHR RT / PROCEDURE REASON: Pain * * * * Physician Interpretation * * * * EXAMINATION / TECHNIQUE: XR SHLDR >/=3V AP/GWEN AP/OTHR RT HISTORY: chronic rt shoulder pain Pain COMPARISON: None RESULT: No acute fracture or osseous malalignment is identified. The joint spaces are preserved. IMPRESSION: No acute bony abnormality. Concaving Machine Operator: YANG Transcribe Date/Time: Oct 18 2024 10:04A Dictated by : BHARATH FREGOSO MD This examination was interpreted and the report reviewed and electronically signed by: BHARATH FREGOSO MD on Oct 18 2024 10:05AM EST [id number] Normal [facility] MR PELVIS W //T// W/O CONTRA STon 10-13-2024 MR PELVIS W //T// W/O CONTRAST [place] [address] Patient: RITIKA VEGA Phone#: : 1985 Age: 38 Gender: F Pt. Type: Out Account: [id number] Location: Ordering: INNA BUSTILLOS Exam Date: 10/13/2024/10:03 Family Phys: Charge Code: 978143 Physician: [place] Order #: [id number] Dose#: PROCEDURE: MRI PELVIS WITH AND WITHOUT CONTRAST COMPARISON: None. INDICATIONS: Right adnexal mass TECHNIQUE: A comprehensive examination was performed utilizing a variety of imaging planes and imaging parameters to optimize visualization of suspected pathology. Images were obtained with and without gadolinium contrast. FINDINGS: UTERUS: Size is 10.3 x 4.5 x 6.4 cm with unremarkable appearance. Endometrial thickness is 9 mm. OVARIES: There is a mass in the right ovary. The mass measures 5.0 x 5.5 x 3.5 cm. On T1 imaging there is internal lobulated hyperintense signal which sats out on fat sat imaging, consistent with fat. There is corresponding restricted diffusion, series 20, image 24. Within the fat component there is a nodule with postcontrast enhancement measuring 2.4 x 1.4 cm. No appreciable extension beyond the wall of the mass. There is a small cyst within the enhancing nodule. There is nondependent T2 hyperintense T1 hypointense signal consistent with fluid. Small follicles are seen in residual ovarian tissue superior to the mass, series 6, image 13. Unremarkable appearance of the left ovary measuring 3.9 x 3.2 x 2.2 cm. The left ovary contains follicles. CUL-DE-SAC: Normal. No fluid or mass. LYMPH NODES: Normal. No adenopathy. BLADDER: Normal. No focal wall thickening or mass. BONES: Normal. No bony lesion or fracture. OTHER: Negative. CONCLUSION: 1. Right ovarian mass most consistent with mature cystic teratoma. Enhancing nodule is equivocal for malignant transformation. Dictated by: Chani Live MD on 10/20/2024 at 12:06 Approved by: Chani Live MD on 10/20/2024 at 13:59 Normal [facility] XR SHLDR >/=3V AP/GWEN AP/OTH R LTon 10-10-2024 XR SHLDR >/=3V AP/GWEN AP/OTHR LT * * *Final Report* * * DATE OF EXAM: Oct 10 2024 8:09AM LNX 5252 - XR SHLDR >/=3V AP/GWEN AP/OTHR LT / PROCEDURE REASON: Pain * * * * Physician Interpretation * * * * CANCELLED IMAGING EXAM RESULT: Radiation Exposure: No radiation exposure Intravenous Contrast Administered: No IV contrast administered Findings: No images were obtained. IMPRESSION: XR SHLDR >/=3V AP/GWEN AP/OTHR LT, XR SHLDR >/=3V AP/GWEN AP/OTHR RT could not be completed. Concaving Machine Operator: [facility] Transcribe Date/Time: Oct 12 2024 9:49A Dictated by : TAYLER TURCIOS MD This examination was interpreted and the report reviewed and electronically signed by: TAYLER TURCIOS MD on Oct 12 2024 9:52AM EST [id number] Normal [facility] XR SHLDR >/=3V AP/GWEN AP/OTH R RTon 10-10-2024 XR SHLDR >/=3V AP/GWEN AP/OTHR RT * * *Final Report* * * DATE OF EXAM: Oct 10 2024 8:09AM LNX 5253 - XR SHLDR >/=3V AP/GWEN AP/OTHR RT / PROCEDURE REASON: Pain * * * * Physician Interpretation * * * * CANCELLED IMAGING EXAM RESULT: Radiation Exposure: No radiation exposure Intravenous Contrast Administered: No IV contrast administered Findings: No images were obtained. IMPRESSION: XR SHLDR >/=3V AP/GWEN AP/OTHR LT, XR SHLDR >/=3V AP/GWEN AP/OTHR RT could not be completed. Concaving Machine Operator: PSCRebecca Transcribe Date/Time: Oct 12 2024 9:49A Dictated by : TAYLER TURCIOS MD This examination was interpreted and the report reviewed and electronically signed by: TAYLER TURCIOS MD on Oct 12 2024 9:52AM EST [id number] Normal [facility] CTPCRon 10-02-2024 C. trachomatis Interp Normal See CT Interp N [facility] Comment on above: Result Comment: C. t rachomatis DNA not detected. Specimen is presumptive negative for C. trachomatis. A negative result does not preclude C. trachomatis infection because results depend on adequate specimen collection, absence of inhibitors, and sufficient DNA to be detected. See CT Interp N Performed By: #### N GPCR1, CTPCR #### [address] [address] C.trachomatis PCR Negative Normal Negative [facility] Comment on above: Result Comment: Mole cular (PCR) assay performed on the [employer] 4800 system. Performed By: #### N GPCR1, CTPCR #### [address] [address] Chlam Source Urine Normal [facility] Comment on above: Performed By: #### N GPCR1, CTPCR #### [address] [address] [id number] 10-02-2024 GC PCR Source Urine Normal [facility] Comment on above: Performed By: #### N GPCR1, CTPCR #### [address] [address] N. gonorrhoeae (PCR) Negative Normal Negative [facility] Comment on above: Result Comment: Mole cular (PCR) assay performed on the [employer] 4800 System. Performed By: #### N GPCR1, CTPCR #### [place] [address] N. gonorrhoeae Interp Normal See NG Interp N [facility] Comment on above: Result Comment: N. g onorrhoeae DNA not detected. Specimen is presumptive negative for N. gonorrhoeae. A negative result does not preclude Neisseria gonorrhoeae infection because results depend on adequate specimen collection, absence of inhibitors, and sufficient DNA to be detected. See NG Interp N Performed By: #### N GPCR1, CTPCR #### [place] [address] RPRon 10-02-2024 Reagin Ab RPR Ql (S) Non-Reactive Normal Non-Reactive [facility] Comment on above: Result Comment: The RPR test is a non-treponemal assay useful as an aid in the diagnosis of primary and secondary syphilis. It converts to positive generally within 2 weeks after the appearance of a lesion. This test is also useful for monitoring response to antibiotic therapy. A positive RPR screening test will be followed by the FTA ABS test. False positive RPR tests may occur in 1) patients with underlying autoimmune disorders, 2) elderly patients, 3) , and 4) other conditions with abnormal serum globulins. Performed By: #### N GPCR1, CTPCR #### [place] [address] RUBISon 10-02-[address] Positive Normal Positive [facility] Comment on above: Result Comment: This immune status assay detects IgM and/or IgG antibody to Rubella. Interpret results in conjunction with clinical history. POS: Antibody detected; exposure at undetermined recent or distant time. If clinically indicated, order Rubella IGM to rule out recent infection. NEG: No antibody detected. Performed By: #### N GPCR1, CTPCR #### [place] [address] VARISon 09-30-[address] Positive Normal [facility] Comment on above: Result Comment: INTE RPRETATION OF VARICELLA IMMUNE STATUS IgG BY EIA: Negative: No detectable VZV IgG antibody. Positive: VZV IgG antibody Detected. If clinically indicated, order Varicella IgM to rule out recent infection. Equivocal: Equivocal for antibodies to VZV. Suggest repeat testing in 10- days. Performed By: #### N GPCR1, CTPCR #### [address] [address] .GFRon 09-29-2024 GFR Non- >60 [facility] Comment on above: Result Comment: GFR Population mean for , Non- Americans Ages 20-29 = 116 mL/min/1.73 sq.m. Ages 30-39 = 107 mL/min/1.73 sq.m. Ages 40-49 = 99 mL/min/1.73 sq.m. Ages 50-59 = 93 mL/min/1.73 sq.m. Ages 60-69 = 85 mL/min/1.73 sq.m. Ages 70+ = 75 mL/min/1.73 sq.m. Chronic Kidney Disease: Less than 60 mL/min/1.73 square meters End Stage Renal Disease: Less than 15 mL/min/1.73 square meters Performed By: #### H BSAG, CMP, HCV1, RPR, HGMP, GFR, HIV, A1C, VARIS, RUBIS, ABSGEL #### [address] [address] GFR >60 [facility] Comment on above: Result Comment: GFR Population mean for , Non- Americans Ages 20-29 = 116 mL/min/1.73 sq.m. Ages 30-39 = 107 mL/min/1.73 sq.m. Ages 40-49 = 99 mL/min/1.73 sq.m. Ages 50-59 = 93 mL/min/1.73 sq.m. Ages 60-69 = 85 mL/min/1.73 sq.m. Ages 70+ = 75 mL/min/1.73 sq.m. Chronic Kidney Disease: Less than 60 mL/min/1.73 square meters End Stage Renal Disease: Less than 15 mL/min/1.73 square meters Performed By: #### H BSAG, CMP, HCV1, RPR, HGMP, GFR, HIV, A1C, VARIS, RUBIS, ABSGEL #### [address] [address] A1Con 09-29-2024 Glucose [Mass/Vol] 97 mg/dL Normal [facility] Comment on above: Result Comment: Concetta mated Average Glucose calculated by equation ((28.7xA1C)-46.7) Estimated average glucose (eAG) is a calculated value from Hemoglobin A1C and is field representative/health education of the average blood glucose level in the last 2-3 month period. Normal range: less than 114 mg/dL Performed By: #### H BSAG, CMP, HCV1, RPR, HGMP, GFR, HIV, A1C, VARIS, RUBIS, ABSGEL #### [place] [id number] HbA1c (Bld) [Mass fraction] 5.0 % Normal 4.0-6.0 [facility] Comment on above: Performed By: #### H BSAG, CMP, HCV1, RPR, HGMP, GFR, HIV, A1C, VARIS, RUBIS, ABSGEL #### [place] [id number] ABS (Gel)on 09-29-2024 ABSC Interp (Gel) Negative Normal [facility] Comment on above: Performed By: #### H BSAG, CMP, HCV1, RPR, HGMP, GFR, HIV, A1C, VARIS, RUBIS, ABSGEL #### [place] [id number] CMPon 09-29-2024 Albumin Level 3.7 G/dL Normal 3.2-4.8 [facility] Comment on above: Performed By: #### H BSAG, CMP, HCV1, RPR, HGMP, GFR, HIV, A1C, VARIS, RUBIS, ABSGEL #### [place] [id number] Albumin/Globulin [Mass ratio] 1.3 {ratio} Normal 0.9-1.6 [facility] Comment on above: Performed By: #### H BSAG, CMP, HCV1, RPR, HGMP, GFR, HIV, A1C, VARIS, RUBIS, ABSGEL #### [place] [id number] ALP [Catalytic activity/Vol] 50 U/L Normal 38-126 [facility] Comment on above: Performed By: #### H BSAG, CMP, HCV1, RPR, HGMP, GFR, HIV, A1C, VARIS, RUBIS, ABSGEL #### [address] [address] ALT [Catalytic activity/Vol] 29 U/L Normal 10-49 [facility] [facility] Comment on above: Performed By: #### H BSAG, CMP, HCV1, RPR, HGMP, GFR, HIV, A1C, VARIS, RUBIS, ABSGEL #### [place] [id number] AST [Catalytic activity/Vol] 19 U/L Normal 8-34 [facility] Comment on above: Performed By: #### H BSAG, CMP, HCV1, RPR, HGMP, GFR, HIV, A1C, VARIS, RUBIS, ABSGEL #### [place] [id number] Bili Total 0.70 mg/dL Normal 0.20-1.20 [facility] Comment on above: Result Comment: Use of this assay is not recommended for patients undergoing treatment with eltrombopag due to the potential for falsely elevated results. Performed By: #### H BSAG, CMP, HCV1, RPR, HGMP, GFR, HIV, A1C, VARIS, RUBIS, ABSGEL #### [place] [id number] BUN/Creatinine Ratio 19.2 ratio Normal 10.0-22.0 [facility] Comment on above: Performed By: #### H BSAG, CMP, HCV1, RPR, HGMP, GFR, HIV, A1C, VARIS, RUBIS, ABSGEL #### [place] [id number] Calcium [Mass/Vol] 9.4 mg/dL Normal 8.7-10.4 [facility] Comment on above: Performed By: #### H BSAG, CMP, HCV1, RPR, HGMP, GFR, HIV, A1C, VARIS, RUBIS, ABSGEL #### [place] [id number] Chloride [Moles/Vol] 107 mmol/L Normal 98-110 [facility] Comment on above: Performed By: #### H BSAG, CMP, HCV1, RPR, HGMP, GFR, HIV, A1C, VARIS, RUBIS, ABSGEL #### [address] [address] CO2 [Moles/Vol] 29 mmol/L Normal 22-32 [facility] Comment on above: Performed By: #### H BSAG, CMP, HCV1, RPR, HGMP, GFR, HIV, A1C, VARIS, RUBIS, ABSGEL #### [address] [address] Creatinine [Mass/Vol] 0.99 mg/dL Normal 0.50-1.20 [facility] Comment on above: Result Comment: Test ing performed on [employer] analyzer using enzymatic creatinine methodology. Performed By: #### H BSAG, CMP, HCV1, RPR, HGMP, GFR, HIV, A1C, VARIS, RUBIS, ABSGEL #### [address] [address] Electrolyte Balance 6.0 mEq/L Normal 4.0-15.0 [facility] Comment on above: Performed By: #### H BSAG, CMP, HCV1, RPR, HGMP, GFR, HIV, A1C, VARIS, RUBIS, ABSGEL #### [address] [address] Globulin 2.9 G/dL Normal 1.5-3.8 [facility] Comment on above: Performed By: #### H BSAG, CMP, HCV1, RPR, HGMP, GFR, HIV, A1C, VARIS, RUBIS, ABSGEL #### [address] [address] Glucose [Mass/Vol] 81 mg/dL Normal 70-110 [facility] Comment on above: Performed By: #### H BSAG, CMP, HCV1, RPR, HGMP, GFR, HIV, A1C, VARIS, RUBIS, ABSGEL #### [address] [address] Potassium [Moles/Vol] 4.4 mmol/L Normal 3.5-5.0 [facility] Comment on above: Performed By: #### H BSAG, CMP, HCV1, RPR, HGMP, GFR, HIV, A1C, VARIS, RUBIS, ABSGEL #### [place] [address] Sodium [Moles/Vol] 142 mmol/L Normal 136-145 [facility] Comment on above: Performed By: #### H BSAG, CMP, HCV1, RPR, HGMP, GFR, HIV, A1C, VARIS, RUBIS, ABSGEL #### [place] [address] Total Protein 6.6 G/dL Normal 5.7-8.2 [facility] Comment on above: Performed By: #### H BSAG, CMP, HCV1, RPR, HGMP, GFR, HIV, A1C, VARIS, RUBIS, ABSGEL #### [place] [address] Urea nitrogen [Mass/Vol] 19.0 mg/dL Normal 8.0-22.0 [facility] Comment on above: Performed By: #### H BSAG, CMP, HCV1, RPR, HGMP, GFR, HIV, A1C, VARIS, RUBIS, ABSGEL #### [place] [address] HBSAGon 09-29-2024 Hep B Surf Ag Non-Reactive Normal Non-Reactive [facility] Comment on above: Performed By: #### H BSAG, CMP, HCV1, RPR, HGMP, GFR, HIV, A1C, VARIS, RUBIS, ABSGEL #### [place] [address] HCVon 09-29-2024 Hep C Ab Non-Reactive Normal Non-Reactive [facility] Comment on above: Performed By: #### H BSAG, CMP, HCV1, RPR, HGMP, GFR, HIV, A1C, VARIS, RUBIS, ABSGEL #### [place] [address] Hep C Ab Int Normal [facility] Comment on above: Result Comment: Nonr eactive: Samples with a value < 0.80 are considered nonreactive (negative) for antibodies to HCV. A negative test result does not exclude the possibility of exposure to or infection with HCV. HCV antibodies may be undetectable in some stages of the infection and in some clinical conditions. See Interp Performed By: #### H BSAG, CMP, HCV1, RPR, HGMP, GFR, HIV, A1C, VARIS, RUBIS, ABSGEL #### [place] [address] HGMPon 09-29-2024 Erythrocyte distribution width (RBC) [Ratio] 12.3 % Normal 11.5-15.5 [facility] Comment on above: Performed By: #### H BSAG, CMP, HCV1, RPR, HGMP, GFR, HIV, A1C, VARIS, RUBIS, ABSGEL #### [place] [address] Hematocrit (Bld) [Volume fraction] 38.0 % Normal 34.0-46.0 [facility] Comment on above: Performed By: #### H BSAG, CMP, HCV1, RPR, HGMP, GFR, HIV, A1C, VARIS, RUBIS, ABSGEL #### [place] [address] Hgb 12.9 G/dL Normal 12.0-16.0 [facility] Comment on above: Performed By: #### H BSAG, CMP, HCV1, RPR, HGMP, GFR, HIV, A1C, VARIS, RUBIS, ABSGEL #### [place] [id number] MCH (RBC) [Entitic mass] 33.2 pg High 27.0-33.0 [facility] Comment on above: Performed By: #### H BSAG, CMP, HCV1, RPR, HGMP, GFR, HIV, A1C, VARIS, RUBIS, ABSGEL #### [place] [id number] MCHC 34.0 G/dL Normal 32.0-36.0 [facility] Comment on above: Performed By: #### H BSAG, CMP, HCV1, RPR, HGMP, GFR, HIV, A1C, VARIS, RUBIS, ABSGEL #### [place] [address] MCV (RBC) [Entitic vol] 97.6 fL Normal 80.0-99.0 [facility] Comment on above: Performed By: #### H BSAG, CMP, HCV1, RPR, HGMP, GFR, HIV, A1C, VARIS, RUBIS, ABSGEL #### [place] [address] Platelet 275 10 3/mcL Normal 150-450 [facility] Comment on above: Performed By: #### H BSAG, CMP, HCV1, RPR, HGMP, GFR, HIV, A1C, VARIS, RUBIS, ABSGEL #### [place] [address] Platelet mean volume (Bld) [Entitic vol] 8.0 fL Normal 6.6-10.5 [facility] Comment on above: Performed By: #### H BSAG, CMP, HCV1, RPR, HGMP, GFR, HIV, A1C, VARIS, RUBIS, ABSGEL #### [place] [address] RBC 3.90 10 6/mcL Low 4.10-5.30 [facility] Comment on above: Performed By: #### H BSAG, CMP, HCV1, RPR, HGMP, GFR, HIV, A1C, VARIS, RUBIS, ABSGEL #### [place] [address] WBC 5.3 10 3/mcL Normal 4.5-10.8 [facility] Comment on above: Performed By: #### H BSAG, CMP, HCV1, RPR, HGMP, GFR, HIV, A1C, VARIS, RUBIS, ABSGEL #### [place] [address] HIVon 09-29-2024 HIV 1/2 Ab Non-Reactive Normal Non-Reactive [facility] Comment on above: Result Comment: Spec imen is negative for anti-HIV-1 and anti-HIV-2. Performed By: #### H BSAG, CMP, HCV1, RPR, HGMP, GFR, HIV, A1C, VARIS, RUBIS, ABSGEL #### [place] [address] LABORATORYOrdered By: SYSTEM SYSTEM on 09-29-2024 Albumin BCP dye [Mass/Vol] 3.7 G/dL Normal 3.2 - 4.8 G/dL ADM SS Albumin/Globulin [Mass ratio] 1.3 {ratio} Normal 0.9 - 1.6 ratio ADM SS ALP [Catalytic activity/Vol] 50 U/L Normal 38 - 126 U/L ADM SS ALT No additional P-5'-P [Catalytic activity/Vol] 29 U/L Normal 10 - 49 U/L ADM SS AST [Catalytic activity/Vol] 19 U/L Normal 8 - 34 U/L ADM SS Bilirubin [Mass/Vol] 0.70 mg/dL Normal 0.20 - 1.20 mg/dL ADM SS Comment on above: Interpretive Data: U se of this assay is not recommended for patients undergoing treatment with eltrombopag due to the potential for falsely elevated results. Calcium [Mass/Vol] 9.4 mg/dL Normal 8.7 - 10. 4 mg/dL ADM SS Chloride [Moles/Vol] 107 mmol/L Normal 98 - 11 0 mEq/L ADM SS CO2 [Moles/Vol] 29 mmol/L Normal 22 - 32 mEq/L ADM SS Creatinine [Mass/Vol] 0.99 mg/dL Normal 0.50 - 1.20 mg/dL ADM SS Comment on above: Interpretive Data: T esting performed on [employer] analyzer using enzymatic creatinine methodology. Electrolyte Balance 6.0 mEq/L Normal 4.0 - 15 .0 mEq/L ADM SS Erythrocyte distribution width (RBC) [Ratio] 12.3 % Normal 11.5 - 15.5 % Workflow SS GFR/1.73 sq M.predicted among blacks MDRD (S/P/Bld) [Vol rate/Area] ml/min/1.73sqm Invalid Interpretation Code Chemistry S Comment on above: Interpretive Data: GFR Population mean for , Non- Americans Ages 20-29 = 116 mL/min/1.73 sq.m. Ages 30-39 = 107 mL/min/1.73 sq.m. Ages 40-49 = 99 mL/min/1.73 sq.m. Ages 50-59 = 93 mL/min/1.73 sq.m. Ages 60-69 = 85 mL/min/1.73 sq.m. Ages 70+ = 75 mL/min/1.73 sq.m. Chronic Kidney Disease: Less than 60 mL/min/1.73 square meters End Stage Renal Disease: Less than 15 mL/min/1.73 square meters GFR/1.73 sq M.predicted among non-blacks MDRD (S/P/Bld) [Vol rate/Area] ml/min/1.73sqm Invalid Interpretation Code Chemistry S Comment on above: Interpretive Data: GFR Population mean for , Non- Americans Ages 20-29 = 116 mL/min/1.73 sq.m. Ages 30-39 = 107 mL/min/1.73 sq.m. Ages 40-49 = 99 mL/min/1.73 sq.m. Ages 50-59 = 93 mL/min/1.73 sq.m. Ages 60-69 = 85 mL/min/1.73 sq.m. Ages 70+ = 75 mL/min/1.73 sq.m. Chronic Kidney Disease: Less than 60 mL/min/1.73 square meters End Stage Renal Disease: Less than 15 mL/min/1.73 square meters Globulin 2.9 G/dL Normal 1.5 - 3.8 G/dL ADM SS Glucose [Mass/Vol] 97 mg/dL Invalid Interpretation Code Auto Chem SS Comment on above: Interpretive Data: E stimated average glucose (eAG) is a calculated value from Hemoglobin A1C and is field representative/health education of the average blood glucose level in the last 2-3 month period. Normal range: less than 114 mg/dL Glucose [Mass/Vol] 81 mg/dL Normal 70 - 110 mg/dL ADM SS HbA1c (Bld) [Mass fraction] 5.0 % Normal 4.0 - 6.0 % Auto Chem SS Hematocrit (Bld) [Volume fraction] 38.0 % Normal 34.0 - 46.0 % Workflow SS Hemoglobin (Bld) [Mass/Vol] 12.9 G/dL Normal 12.0 - 16.0 G/dL AH Workflow SS MCH (RBC) [Entitic mass] 33.2 pg High 27.0 - 33.0 pg AH Workflow SS MCHC 34.0 G/dL Normal 32.0 - 36.0 G/dL AH Workflow SS MCV (RBC) [Entitic vol] 97.6 fL Normal 80.0 - 99.0 fL AH Workflow SS Platelet mean volume (Bld) [Entitic vol] 8.0 fL Normal 6.6 - 10.5 fL Workflow SS Platelets (Bld) [#/Vol] 275 103/mcL Normal 150 - 450 10^3/mcL AH Workflow SS Potassium [Moles/Vol] 4.4 mmol/L Normal 3.5 - 5.0 mEq/L ADM SS Protein [Mass/Vol] 6.6 G/dL Normal 5.7 - 8.2 G/dL ADM SS RBC (Bld) [#/Vol] 3.90 106/mcL Low 4.10 - 5.3 0 10^6/mcL AH Workflow SS Sodium [Moles/Vol] 142 mmol/L Normal 136 - 145 mEq/L ADM SS Urea nitrogen [Mass/Vol] 19.0 mg/dL Normal 8.0 - 22.0 mg/dL ADM SS Urea nitrogen/Creatinine [Mass ratio] 19.2 ratio Normal 10.0 - 22.0 ratio ADM SS WBC (Bld) [#/Vol] 5.3 103/mcL Normal 4.5 - 10.8 10^3/mcL Workflow SS LABORATORYOrdered By: Beny Tierney on 09-29-2024 Blood group antibody screen Ql Negative ABSC (09/29/24 1:05 PM) Normal BB Auto SS LABORATORYOrdered By: Tanner Erazo on 09-29-2024 HBV surface Ag IA Ql Non-Reactive (09/29/24 1:05 PM) Normal Non-Reactive ADM SS HCV Ab IA Ql Non-Reactive (09/29/24 1:05 PM) Normal Non-Reactive ADM SS HCV Ab IA Ql Nonreactive: Samples with a value < 0.80 are considered nonreactive (negative) for antibodies to HCV.A negative test result does not exclude the possibility of exposure to or infection with HCV. HCV antibodies may be undetectable in some stages of the infection and in some clinical conditions. Invalid Interpretation Code Chemistry S HIV 1+2 Ab IA Ql Negative Invalid Interpretation Code AH Chemistry S HIV 1/2 Ab Non-Reactive (09/29/24 1:05 PM) Normal Non-Reactive AH ADM SS Free T3on 09-14-2024 Free T3 [Mass/Vol] 2.4 pg/mL Normal 2.18-3.98 [facility] Comment on above: Performed By: #### L 501.9520, L506.0400, L501.91210 #### [facility] [address] [place], [address] T4 Free Directon 09-14-2024 T4 FREE DIRECT 0.75 ng/dL Low 0.76-1.46 [facility] Comment on above: Performed By: #### L 501.9520, L506.0400, L501.10485 #### [facility] [address] [place], [address] Thyroid Stim Hormone (TSH)on 09-14-2024 TSH 1.460 uIU/mL Normal 0.358-3.740 [facility] Comment on above: Performed By: #### L 501.9520, L506.0400, L501.03565 #### [facility] [address] [place], [address] Comprehensive Metabolic Prof ilon 08-25-2024 Albumin [Mass/Vol] 3.7 g/dL Normal 3.2-5.0 [facility] Comment on above: Performed By: #### L 500.4050, L501.9520, L506.0400, L501.18936 #### [facility] [address] [place], [address] Albumin/Globulin [Mass ratio] 1.1 {ratio} Normal 0.9-2.4 [facility] Comment on above: Performed By: #### L 500.4050, L501.9520, L506.0400, L501.42599 #### [facility] [address] [place], [address] ALK P 50 U/L Normal 45-117 [facility] Comment on above: Performed By: #### L 500.4050, L501.9520, L506.0400, L501.73611 #### [facility] [address] [place], [address] ALT [Catalytic activity/Vol] 29 U/L Normal 13-56 [facility] Comment on above: Performed By: #### L 500.4050, L501.9520, L506.0400, L501.96780 #### [facility] [address] [place], [address] AST [Catalytic activity/Vol] 14 U/L Low 15-37 [facility] Comment on above: Performed By: #### L 500.4050, L501.9520, L506.0400, L501.20963 #### [facility] [address] [place], [address] Bilirubin [Mass/Vol] 1.00 mg/dL Normal 0.20-1.00 [facility] Comment on above: Result Comment: For patients on eltrombopag therapy, use of Dimension [place] TBIL is not recommended. Performed By: #### L 500.4050, L501.9520, L506.0400, L501.65897 #### [facility] [address] [place], [address] BUN/CRE 14.4 RATIO Normal 10-20 [facility] Comment on above: Performed By: #### L 500.4050, L501.9520, L506.0400, L501.66458 #### [facility] [address] [place], [address] CA,Total 8.7 mg/dL Normal 8.5-10.1 [facility] Comment on above: Performed By: #### L 500.4050, L501.9520, L506.0400, L501.54151 #### [facility] [address] [place], [address] Chloride [Moles/Vol] 110 mmol/L High 98-107 [facility] Comment on above: Performed By: #### L 500.4050, L501.9520, L506.0400, L501.95513 #### [facility] [address] [place], [address] CO2 [Moles/Vol] 24.0 mmol/L Normal 21.0-32.0 [facility] Comment on above: Performed By: #### L 500.4050, L501.9520, L506.0400, L501.42113 #### [facility] [address] [place], [address] Creatinine [Mass/Vol] 1.04 mg/dL High 0.55-1.[address] [facility] Comment on above: Result Comment: The validity of the calculated GFR GFRAA in patients over 70 years has not been determined. Clinical correlation is essential. Performed By: #### L 500.4050, L501.9520, L506.0400, L501.83545 #### [facility] [address] [place], [address] EST GFR - AA 76 mL/min Normal >60 [facility] Comment on above: Result Comment: Afri can [place] GFR Calc Performed By: #### L 500.4050, L501.9520, L506.0400, L501.18142 #### [facility] [address] [place], [address] GAP 5 Normal 5-15 [facility] Comment on above: Performed By: #### L 500.4050, L501.9520, L506.0400, L501.93570 #### [facility] [address] [place], [address] GFR/1.73 sq M.predicted among non-blacks MDRD (S/P/Bld) [Vol rate/Area] 63 mL/min/{1.73_m2} Normal >60 [facility] Comment on above: Result Comment: Non- GFR Calc Performed By: #### L 500.4050, L501.9520, L506.0400, L501.10730 #### [facility] [address] [place], [address] Globulin (S) [Mass/Vol] 3.3 g/dL Normal 2.2-4.2 [facility] Comment on above: Performed By: #### L 500.4050, L501.9520, L506.0400, L501.91945 #### [facility] [address] [place], [address] Glucose [Mass/Vol] 86 mg/dL Normal 74-106 [facility] Comment on above: Performed By: #### L 500.4050, L501.9520, L506.0400, L501.26130 #### [facility] [address] [place], [address] Potassium [Moles/Vol] 4.4 mmol/L Normal 3.5-5.[address] [facility] Comment on above: Performed By: #### L 500.4050, L501.9520, L506.0400, L501.34866 #### [facility] [address] [place], [address] Sodium [Moles/Vol] 139 mmol/L Normal 136-145 [facility] Comment on above: Performed By: #### L 500.4050, L501.9520, L506.0400, L501.99359 #### [facility] [address] [place], [address] T PROT 7.0 g/dL Normal 6.4-8.2 [facility] Comment on above: Performed By: #### L 500.4050, L501.9520, L506.0400, L501.32614 #### [facility] [address] [place], [address] Urea nitrogen [Mass/Vol] 15 mg/dL Normal - [facility] Comment on above: Performed By: #### L 500.4050, L501.9520, L506.0400, L501.64272 #### [facility] [address] [place], [address] Free T3on 08-25-2024 Free T3 [Mass/Vol] 2.3 pg/mL Normal 2.18-3.98 [facility] Comment on above: Performed By: #### L 500.4050, L501.9520, L506.0400, L501.92129 #### [facility] [address] [place], [address] T4 Free Directon 08-25-2024 T4 FREE DIRECT 0.72 ng/dL Low 0.76-1.46 [facility] Comment on above: Performed By: #### L 500.4050, L501.9520, L506.0400, L501.43342 #### [facility] [address] [place], [address] Thyroid Stim Hormone (TSH)on 08-25-2024 TSH 1.670 uIU/mL Normal 0.358-3.740 [facility] Comment on above: Performed By: #### L 500.4050, L501.9520, L506.0400, L501.14884 #### [facility] [address] [place], [address] Endocrinology Visit Reporton 08-17-2024 Endocrinology Visit Report [facility] [address] [place], [place] [address] OFFICE VISIT Date of Service: 08/17/24 MR#: [id number] Acct: [id number] Name: RITIKA VEGA Rep #: [id number] : 1985 Provider: Carmen Fortune Age/Sex: 38/F Location: [facility] Status: Signed Intake Vital Signs 03/09/24 08:36 07/28/24 14:02 08/17/24 08:34 Height 5 ft 11 in 5 ft 11 in 5 ft 11 in Weight: 161 lb 1 oz BMI 22.4 BP 121/82 H Blood Pressure Location Lt brachial Position Sitting Pulse 56 L Pulse Source Monitor Pulse Oximetry (%) 99 Oxygen Delivery Method room air Intake Visit Reasons: 6 M FU Chief Complaint: Hyperthyroidism Is patient in pain?: No Allergies No Known Allergies Allergy (Verified 07/28/24 14:02) Medications ???Medication ???Instructions ???Recorded ???Confirmed ???Type omega-3 fatty acids 1,000 mg 1,000 mg PO DAILY 12/12/19 08/17/24 History capsule (Fish Oil Concentrate) cetirizine 10 mg capsule (Zyrtec) 10 mg PO DAILY PRN 04/21/21 08/17/24 History propylthiouracil 50 mg tablet See Rx Instructions PO BID #120 03/09/24 08/17/24 Rx tabs coenzyme Q10 10 mg capsule (Co 10 mg PO ONCE 07/28/24 08/17/24 History Q-10) vits 75-iron 28 mg-folic pkg PO 07/28/24 08/17/24 History acid 800 mcg-omega-3 oral combo pack (One A Day Women's DHA) PFSH Medical History Paresthesia Graves disease Celiac disease Heart murmur GI problem Anemia Seasonal allergies Surgical History Hx of LASIK H/O elbow surgery H/O left knee surgery Family History Mother Fibromyalgia Depression Hypertension Hyperlipidemia Grandmother Breast cancer Diabetes Heart disease Skin cancer Father Hypertension Grandfather CVA (cerebral vascular accident) Social History household members: family housing: house current occupational status: employed 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 She is taking PTU for the treatment of Grave's disease. She is attempting . Last 2 sets of thyroid labs show thyroid levels a tad on the lower side. We have been lowering her dosage. She is aware of risks of PTU and using anti-thyroid medications in . She would like her liver enzymes checked. ROS Const Constitutional: No fatigue or weight change ENT ENT: No dizziness/vertigo Cardio Cardiology: No chest pain at rest, chest pain with exertion, shortness of breath or palpitations Skin Skin: No wounds Endo Endocrine: No fatigue or weight change Exam Const General: cooperative, healthy appearing, comfortable, no acute distress, well developed and not cushingoid Nutritional Appearance: well nourished Orientation: alert, awake and oriented x3 HENMT Head: normal to inspection Ears: hearing grossly normal bilaterally Nose: external nose normal Mouth: oral mucosae normal Eyes General: appearance normal, both eyes and all related structures Alignment and Position: alignment normal Periorbital: periorbital findings normal Eyelids: eyelids normal Conjunctivae: conjunctivae normal Neck Neck: normal visual inspection Neck mass: No Thyroid: diffusely enlarged Lymphatic: no lymphadenopathy noted Chest Chest palpation inspection: normal inspection of the chest Resp Effort Inspection: normal respiratory effort, able to speak in complete sentences, symmetric chest movement, no audible wheezes and no cough Cardio Rate: regular rate Rhythm: regular rhythm Pulses: posterior tibial pulses present Skin General: no rashes or lesions noted Neuro General: patient alert, patient awake and patient oriented x3 Cranial Nerves: CN's II-XI intact bilaterally Cognition: normal cognition Speech: speech normal Gait: normal gait Motor: muscle tone normal throughout Extrem General: no edema Psych Appearance: grossly normal Mental Status: mental status grossly normal Mood: congruent mood Affect: normal affect Speech and M (more content not included)... Normal [facility] [facility] PROGESTERONE [CCL]on 024 Progesterone 25.0 ng/mL Normal See comment [facility] Comment on above: Result Comment: Mens trual Cycle Progesterone Reference Ranges: Follicular: <1.0 ng/mL Ovulation: <12.1 ng/mL Luteal: 1.8 to 23.9 ng/mL. Progesterone Reference Ranges vary by gestational period: First Trimester: 11.0 to 44.3 ng/mL Second Trimester: 25.4 to 83.3 ng/mL Third Trimester: 58.7 to 214 ng/mL Post menopausal Progesterone: <0.5 ng/mL Reference: 1. Progesterone (Progesterone III) [package insert V 1.0 Micronesian]. [employer], [place], [place]. August [address]. [place] [address] Rambo Eckert III, M.D. [id number] Performed By: #### 2 [id number] #### [facility],[address] [place] [address] Progest [facility] Progesterone [Mass/Vol] 25.0 ng/mL Normal See comment [facility] Comment on above: Order Comment: Speci men Type: BLOOD SPECIMEN Ordering Facility: [facility] Address: [address] [place] [address] Result Comment: Mens trual Cycle Progesterone Reference Ranges: Follicular: <1.0 ng/mL Ovulation: <12.1 ng/mL Luteal: 1.8 to 23.9 ng/mL. Progesterone Reference Ranges vary by gestational period: First Trimester: 11.0 to 44.3 ng/mL Second Trimester: 25.4 to 83.3 ng/mL Third Trimester: 58.7 to 214 ng/mL Post menopausal Progesterone: <0.5 ng/mL Reference: 1. Progesterone (Progesterone III) [package insert V 1.0 Micronesian]. [employer], [place], [place]. August 2015. Performed By: #### 2 [id number] #### [facility] CLIA [id number] [address] [place] [id number] [place] Free T3on 07-31-2024 Free T3 [Mass/Vol] 2.4 pg/mL Normal 2.18-3.98 [facility] Comment on above: Order Comment: REPRO SOURCE FFOR Performed By: #### L 501.9520, L506.0400, L501.20230, L900.0111 #### [facility] [address] [place], [address] L900.0111on 07-31-2024 REPROSOURCE SEE SCANNED REPORT Normal [facility] Comment on above: Order Comment: REPRO SOURCE FOR DR. BAUTISTA Performed By: #### L 501.9520, L506.0400, [id number] #### [facility] [address] [place], [address] T4 Free Directon 07-31-2024 T4 FREE DIRECT 0.77 ng/dL Normal 0.76-1.46 [facility] Comment on above: Order Comment: REPRO SOURCE FFOR Performed By: #### L 501.9520, L506.0400, L501.87450, L900.0111 #### [facility] [address] [place], [address] Thyroid Stim Hormone (TSH)on 07-31-2024 TSH 4.000 uIU/mL High 0.358-3.740 [facility] Comment on above: Order Comment: REPRO SOURCE FFOR Performed By: #### L 501.9520, L506.0400, L501.77832, L900.0111 #### [facility] [address] [place], [address] Program Management Intern Office Visit Reporton 07-28-2024 Program Management Intern Office Visit Report [facility]'[address], [address] [place] [address] OFFICE VISIT Date of Service: 07/28/24 MR#: [id number] Acct: [id number] Name: RITIKA VEGA Rep #: [id number] : 1985 Provider: ADEBAYO ramirez Age/Sex: 38/F Location: [facility] Status: Signed Intake Vital Signs 04/19/24 07:00 07/28/24 14:02 Height 5 ft 11 in 5 ft 11 in Weight: 159 lb 160 lb BMI 22.1 22.3 BP 112/72 117/75 Blood Pressure Location Lt brachial Position Sitting Pulse 60 Pulse Source Monitor Temp 98.2 F Pulse Oximetry (%) 100 Intake Visit Reasons: FERTILITY CONSULT Chief Complaint: fertility consult [employer] Director Required: No Is patient in pain?: No Allergies No Known Allergies Allergy (Verified 07/28/24 14:02) Medications ???Medication ???Instructions ???Recorded ???Confirmed ???Type omega-3 fatty acids 1,000 mg 1,000 mg PO DAILY 12/12/19 07/28/24 History capsule (Fish Oil Concentrate) cetirizine 10 mg capsule (Zyrtec) 10 mg PO DAILY PRN 04/21/21 07/28/24 History propylthiouracil 50 mg tablet See Rx Instructions PO BID #120 03/09/24 07/28/24 Rx tabs coenzyme Q10 10 mg capsule (Co 10 mg PO ONCE 07/28/24 07/28/24 History Q-10) vits 75-iron 28 mg-folic pkg PO 07/28/24 07/28/24 History acid 800 mcg-omega-3 oral combo pack (One A Day Women's DHA) Is last menstrual period known: Yes Last Menstrual Period: 07/27/24 Post menopausal: No Patient : No : No Control Method: none PFSH Medical History Paresthesia Graves disease Celiac disease Heart murmur GI problem Anemia Seasonal allergies Surgical History Hx of LASIK H/O elbow surgery H/O left knee surgery Family History Mother Fibromyalgia Depression Hypertension Hyperlipidemia Grandmother Breast cancer Diabetes Heart disease Skin cancer Father Hypertension Grandfather CVA (cerebral vascular accident) Social History household members: family housing: house current occupational status: employed 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 current occupational exposures/hazards: No pets and animals: Yes sexually active: Yes Smoking Status: Never smoker alcohol intake: current alcohol intake frequency: holidays/special occasions only substance use type: does not use diet: gluten free well-balanced diet: daily or most days eating out: rarely or never what type of physical activity do you participate in: other frequency: 3-4 times per week 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 2 years ago had hsg during IVF. with reversal in september - had follow up with positive semen present both on coq10 on PTU for hyperthyroidism,stable . sees dr. burrows. has appt in aug. Dysmenorrhea: no Irregular menses: no Menopausal symptoms: no Persistent CASTLE or visual changes: none Hirsutism: no Previous contraception used: no Duration of regular unprotected intercourse: 1 year history of pelvic infections in patient or partner: no family history of endometriosis: no tobacco use for patient or her partner: no partner fathered any pregnancies: yes partner history of testicular issues, ejaculatory dysfunction, or history of Mumps: no Partner medications/vitamins/s upplements: co-q-10 Partner's employment: management Female Reproductive History Last Menstrual Period: 07/27/24 Exam Const General: cooperative and comfortable Resp Effort Inspection: normal respiratory effort and able to speak in complete sentences GI Inspection: normal to inspection Skin General: no rashes or lesions noted Neuro General: patient alert and patient awake Extrem General: normal to inspection Psych Appearance: grossly normal Coding Level of Care Code Off vis,est,level 3 Diagnoses Infertility Assessment and Plan Assessment and Plan (1) Infertility: Status: Acute Comment: declines RGI currently, recommends as >35. will obtain ovarian kit and semen analysis first pap utd, declines sti screening. 07/28/24 1454 Date Dandy HAAS Cosigner Signature: Date (if applicable) CC: Normal [facility] Free T3on 05-30-2024 Free T3 [Mass/Vol] 2.1 pg/mL Low 2.18-3.98 [facility] Comment on above: Performed By: #### L 500.4050, L501.9520, L506.0400, L501.32650 #### [facility] [address] [place], [address] T4 Free Directon 05-30-2024 T4 FREE DIRECT 0.72 ng/dL Low 0.76-1.46 [facility] Comment on above: Performed By: #### L 500.4050, L501.9520, L506.0400, L501.58425 #### [facility] [address] [place], [address] Thyroid Stim Hormone (TSH)on 05-30-2024 TSH 3.34 uIU/mL Normal 0.358-3.74 [facility] Comment on above: Performed By: #### L 500.4050, L501.9520, L506.0400, L501.60401 #### [facility] [address] [place], [address] No Panel InformationOrdered By: Kirby Burrows on 03-08-2024 Free Triiodothyronine (T3) pg/dL 2.4 pg/mL 2.18-3.98 [facility] Serum or plasma thyroid stim ulating hormone (TSH) measurement (units/volume)Ordered By: Kirby Burrows on 03-08-2024 TSH Qn 1.74 uIU/mL 0.358-3.74 [facility] Thin prep Papanicolaou smear with manual screeningOrdered By: Kirby Burrows on 03-08-2024 Thin prep Papanicolaou smear with manual screening 0.91 ng/dL 0.76-1.46 [facility] Final Surgical Pathology Rep meena 01-31-2024 Final Surgical Pathology Report . Pathology Reports Accession: Collected Date/Time: Received Date/Time: Pathologist: [id number] 01/27/2024 14:58 EDT 01/28/2024 08:09 EDT ALLIE BRAMBILA MD Final Surgical Pathology Report DIAGNOSIS: SIGMOID COLON POLYP AT 30 CM: - JUVENILE/HAMARTOMATOUS TYPE POLYP - NEGATIVE FOR DYSPLASIA OR MALIGNANCY CLINICAL INFORMATION: Procedure: DIAGNOSTIC COLONOSCOPY WITH POLYPECTOMY Preoperative diagnosis: POSITIVE FIT TEST Postoperative diagnosis: POSITIVE FIT TEST / LARGE POLYP AT 30 CM SPECIMEN: A SIGMOID COLON POLYP AT 30 CM GROSS DESCRIPTION: All parts labelled with patient name and [id number] Received in formalin labeled sigmoid polyp is 1 melendez-brown tissue fragment measuring 2.9 x 1.5 x 1.3 cm. Margin inked and specimen dissected. TS-3 Liliana Cuellar, Grossing Pediatric Hospitalist/ Dr. Lam Lee, Pathologist Dictated by Liliana Cuellar MICROSCOPIC DESCRIPTION: The microscopic examination is performed, except in the case of Gross Only. Electronically Signed by Pathology Report verified by [facility] ALLIE BRAMBILA Sign out Date: 01/31/2024 11:19 Performing Lab: [facility], [address] [place] [address] Pathology Dept Disclaimer If ancillary studies were utilized, the following Laboratory Developed Test (LDT) disclaimer will apply: Under CLIA requirements, [facility] Pathology Laboratory is qualified to perform high complexity testing. For all ancillary stains, positive and negative controls stain appropriately. Performance characteristics of immunohistochemical and chromogenic in-situ hybridization tests have been determined by [facility] Pathology Laboratory. These tests are used for clinical purposes, They should not be regarded as investigational or for research. Normal Counts Include [facility] - Microbiology an d Antimicrobial susceptibilityon 12-29-2023 SARS-CoV-2 (COVID-19) RNA NENA+probe Ql (Unsp spec) Not detected [facility] No Panel Informationon 12-29 Influenza Types A,B Rapid (Clinic) Pos FLU A &Neg FLU B [facility] - Chemistry and C hemistry - challengeOrdered By: Kirby Burrows on 10-13-2023 Free T4 [Mass/Vol] 0.87 ng/dL 0.76-1.46 [facility] No Panel InformationOrdered By: Kirby Burrows on 10-13-2023 Free Triiodothyronine (T3) pg/dL 2.1 pg/mL 2.18-3.98 [facility] Thyroid Stimulating Hormone (TSH) 2.69 uIU/mL 0.358-3.74 [facility] - Chemistry and C hemistry - challengeOrdered By: Kirby Burrows on 09-10-2023 Free T4 [Mass/Vol] 0.84 ng/dL 0.76-1.46 [facility] No Panel InformationOrdered By: Kirby Burrows on 09-10-2023 Free Triiodothyronine (T3) pg/dL 2.1 pg/mL 2.18-3.98 [facility] Thyroid Stimulating Hormone (TSH) 2.93 uIU/mL 0.358-3.74 [facility] - Chemistry and C hemistry - challengeOrdered By: Dr. Burrows on 04-08-2023 Free T4 [Mass/Vol] 1.09 ng/dL 0.76-1.46 [facility] No Panel InformationOrdered By: Dr. Burrows on 04-08-2023 Free Triiodothyronine (T3) pg/dL 3.2 pg/mL 2.18-3.98 [facility] Thyroid Stimulating Hormone (TSH) 0.01 uIU/mL 0.358-3.74 [facility] - Chemistry and C hemistry - challengeOrdered By: Dr. Burrows on 03-05-2023 Free T4 [Mass/Vol] 1.33 ng/dL 0.76-1.46 [facility] No Panel InformationOrdered By: Dr. Burrows on 03-05-2023 Free Triiodothyronine (T3) pg/dL 4.0 pg/mL 2.18-3.98 [facility] Thyroid Stimulating Hormone (TSH) < 0.01 uIU/mL 0.358-3.74 [facility] - Chemistry and C hemistry - challengeOrdered By: Dr. Burrows on 10-15-2022 Cobalamin (Vitamin B12) [Mass/Vol] 419 pg/mL 211-911 [facility] - Chemistry and C hemistry - challengeOrdered By: Zuleyma Shaffer on 10-15-2022 Free T4 [Mass/Vol] 0.84 ng/dL 0.76-1.46 [facility] No Panel InformationOrdered By: Zuleyma Shaffer on 10-15-2022 Free Triiodothyronine (T3) pg/dL 2.6 pg/mL 2.18-3.98 [facility] Thyroid Stimulating Hormone (TSH) 0.26 uIU/mL 0.358-3.74 [facility] - Chemistry and C hemistry - challengeOrdered By: Dr. Burrows on 09-22-2022 Free T4 [Mass/Vol] 0.98 ng/dL 0.76-1.46 [facility] No Panel InformationOrdered By: Dr. Burrows on 09-22-2022 Free Triiodothyronine (T3) pg/dL 3.1 pg/mL 2.18-3.98 [facility] Thyroid Stimulating Hormone (TSH) 0.02 uIU/mL 0.358-3.74 [facility] - Chemistry and C hemistry - challengeOrdered By: Dr. Burrows on 09-02-2022 Free T4 [Mass/Vol] 1.11 ng/dL 0.76-1.46 [facility] No Panel InformationOrdered By: Dr. Burrows on 09-02-2022 Free Triiodothyronine (T3) pg/dL 3.3 pg/mL 2.18-3.98 [facility] Thyroid Stimulating Hormone (TSH) 0.01 uIU/mL 0.358-3.74 [facility] - Chemistry and C hemistry - challengeon 07-08-2022 Free T4 [Mass/Vol] 1.07 ng/dL 0.76-1.46 [facility] Work Phone: No Panel Informationon 07-08 Free Triiodothyronine (T3) pg/dL 3.2 pg/mL 2.18-3.98 [facility] Work Phone: Thyroid Stimulating Hormone (TSH) 0.19 uIU/mL 0.358-3.74 [facility] Work Phone: Initial Visit (Gastroenterol ogy)on 11-14-2020 Initial Visit (Gastroenterology) Diagnoses/Problems Assessed Adult celiac disease (579.0) (K90.0) Irritable bowel syndrome (564.1) (K58.9) Orders Adult celiac disease Complete Blood Count + Differential; Status:Active; Requested for:14Nov2020; Perform:Lab Services - Lab To Draw (Blood Test); Due:12Feb2021;Ordered; For:Adult celiac disease; Ordered By:Jillian Kraus; Comprehensive Metabolic Panel; Status:Active; Requested for:14Nov2020; Perform:Lab Services - Lab To Draw (Blood Test); Due:12Feb2021;Ordered; For:Adult celiac disease; Ordered By:Jillian Kraus; Ferritin, Serum; Status:Active; Requested for:14Nov2020; Perform:Lab Services - Lab To Draw (Blood Test); Due:12Feb2021;Ordered; For:Adult celiac disease; Ordered By:Jillian Kraus; Folate, Serum; Status:Active; Requested for:14Nov2020; Perform:Lab Services - Lab To Draw (Blood Test); Due:12Feb2021;Ordered; For:Adult celiac disease; Ordered By:Jillian Kraus; TISSUE TRANSGLUTAMINIASE AB, IGA WITH ASSESSMENT OF TOTAL IgA; Status:Active; Requested for:14Nov2020; Perform:Lab Services - Lab To Draw (Blood Test); Due:12Feb2021;Ordered; For:Adult celiac disease; Ordered By:Jillian Kraus; Vitamin B1 - Thiamine, Whole Blood; Status:Active; Requested for:14Nov2020; Perform:Lab Services - Lab To Draw (Blood Test); Due:12Feb2021;Ordered; For:Adult celiac disease; Ordered By:Jillian Kraus; Vitamin B12, Serum; Status:Active; Requested for:14Nov2020; Perform:Lab Services - Lab To Draw (Blood Test); Due:12Feb2021;Ordered; For:Adult celiac disease; Ordered By:Jillian Kraus; Vitamin B6, Serum; Status:Active; Requested for:14Nov2020; Perform:Lab Services - Lab To Draw (Blood Test); Due:12Feb2021;Ordered; For:Adult celiac disease; Ordered By:Jillian Kraus; Vitamin D 25-Hydroxy; Status:Active; Requested for:14Nov2020; Perform:Lab Services - Lab To Draw (Blood Test); Due:12Feb2021;Ordered; For:Adult celiac disease; Ordered By:Jillian Kraus; SocHx: Former cigarette smoker Tobacco Use Screening; Status:Complete; Done: 14Nov2020 Perform:Not Applicable;Ordered; For:SocHx: Former cigarette smoker; Ordered By:Fidelina Garcia; Patient Discussion/Summary 1. Obtain prior GI records from Dr. Patricio with [facility]. 2. Obtain tTG IgA CBC, CMP, ferritin, and vitamin profile. 3. Continue strict gluten free diet. 4. Begin using one heaping tablespoon of Benefiber in 8 ounces of water daily by mixing and drinking quickly. This product is [id number]-lxs-wvmoiyv. 5. Discussed antispasmodic trial pending the above. Chief Complaint An interactive audio and video telecommunication system which permits real time communications between the patient (at the originating site) and provider (at the distant site) was utilized to provide this telehealth service. Verbal consent was requested and obtained from RITIKA VEGA on this date, 11/14/2020 12:00 PM , for a telehealth visit. Celiac disease History of Present [id number] female seen today via virtual visit as a new patient regarding a history of celiac disease diagnosed in spring 2013. She was a prior patient of Dr. Patricio with [facility]. She states she had undergone EGD and several laboratory studies although outside records have not been able to be obtained. She reports feeling well on a strict gluten-free diet up until roughly 6 months ago. She does admit to increase in stress with work over that timeframe. She previously would have 1 formed bowel movement each morning but is now reporting a soft bowel movement after each meal within 1 hour. Stool is loose in caliber but she reports the sensation of incomplete evacuation. There is no hematochezia or melena. This is associated with abdominal cramping that resolves after defecation. She denies persistent abdominal discomfort or bloating. She does report a roughly 10 pound weight loss since summer although she is unclear if this is secondary to muscle loss since decreasing workouts. She denies nausea, vomiting, or reflux symptoms. She reports some dairy in her diet but not much. She follows up with Dr. Howard Burrows with [facility] for management of her Graves' disease. Review of Systems Const: Denies fatigue, fever and weight loss. CV: Denies chest pain, pacemaker, palpitations and valvular heart disease. Resp: Denies cough, sleep apnea, SOB and snoring. GI: Denies symptoms other than stated above. Musculo: Denies joint pain and muscle pain. Skin: Denies hives and rash. Neuro: Denies seizures and stroke. Psych: Denies anxiety and depression. Endocrine: Denies intolerance to cold, hot flashes and impaired glucose tolerance. Kyrie/Lymph: Denies anemia, blood transfusions, chemotherapy, enlarged lymph nodes and radiation treatment of any kind. Active Problems Problems Adult celiac disease (579.0) (K90.0) Irritable bowel syndrome (564.1) (K58.9) Past Medical History Problems History of Graves' disease (V12.29) (Z86.39) Surgical History Problems History of Corneal lasik History of Elbow surgery x2 History of Knee arthroscopy left x2 Family History Mother Family history of Alive and well Father Family history of Alive and well Other Denied: Family history of malignant neoplasm of colon Social History Problems Caffeine use (V49.89) (Z78.9) COFFEE 20-40OZ CUP Consumes healthy diet (V49.89) GLUTEN FREE DIET Does not have living will Former cigarette smoker (V15.82) (Z87.891) No illicit drug use Rarely consumes alcohol (V49.89) (Z78.9) Current Meds Medication NameInstruction Fish Oil 1200 MG Oral CapsuleTAKE DIRECTED. 1.5-30 MG-MCG Oral Tablet methIMAzole 10 MG Oral Tablet Vitals Vital Signs Recorded: 14Nov2020 11:58AM Height5 ft 11 in Xjcekk452 lb BMI Uogcmjnjnf40.32 BSA Calculated1.92 [id number] Physical Exam Patient is alert and oriented and in no apparent distress. Patient is speaking in complete sentences without conversational dyspnea. No observed pallor or jaundice. Signatures Electronically signed by : Jillian Kraus PA-C; Nov 14 2020 12:35PM EST (Author) Normal [employer] PROGRESSon 09-28-2019 PROGRESS HNO ID: [id number] Author: Joy Ricardo Galeano Service: ? Author Type: Physician Type: Progress Notes Filed: 09/28/2019 7:32 PM Note Text: Note: The following is an abstracted note of the either a previous or a new History of Present Illness. This is in prep for an up-coming appointment. This is not a ynpl-kc-gsqt encounter. Previous history as follows: Thyroid gland disease: Previous history: 05/2015: TSH 0.600 (0.358-3.740 uIU/mL), at [facility] lab, 07/2018: Around this time she started feeling some malaise. 10/2018: She saw her Primary Care Physician for palpitations. 10/13/2018: TSH <0.005 (0.358-3.740 uIU/mL), free T4 2.19 (0.76-1.46 ng/dL), Liver function tests and neutrophils are both ok. 10/18/2018: TSH <0.005 (0.358-3.740 uIU/mL), free T4 2.20 (0.76-1.46 ng/dL), Total T3 2.4 (0.6-1.8 ng/mL), 10/18/2018: Thyroid Peroxidase Antibodies 1563.3 (0.0-60.0 IU/mL), 10/25/2018: Initial consultation with me. At time of visit, the Thyroid Stimulating Immunoglobulin (TSI) was pending. 10/2018: Thyroid Stimulating Immunoglobulin (TSI) 481 (<150 %), TBI 13.9 (<1.0 U/L), 11/04/2018: I started her on methimazole 5 mg daily. 11/24/2018: Liver function tests ok, this was a lab appointment. 11/2018: TSH <0.005 (0.358-3.740 uIU/mL), free T4 1.70 (0.76-1.46 ng/dL), free T3 4.5 (2.2-4.0 pg/mL), on Methimazole 5 mg daily. Liver function tests and neutrophils are ok. off biotin for this test. 02/2019: TSH <0.005 (0.358-3.740 uIU/mL), free T4 1.32 (0.76-1.46 ng/dL), free T3 3.9 (2.2-4.0 pg/mL), on Methimazole 5 mg daily. Liver function tests and neutrophils are ok. I increased her dose to 7.5 mg daily. 05/2019: TSH 0.006 (0.358-3.740 uIU/mL), free T4 1.39 (0.76-1.46 ng/dL), free T3 4.1 (2.2-4.0 pg/mL), on Methimazole 7.5 mg daily. Liver function tests and neutrophils are ok. I increased her to Methimazole 10 mg daily. Biotin: Now off all biotin. Last dose, was multiple months ago. ? Celiac Disease: History of celiac disease (biopsy confirmed). Gluten free diet. ? Vitamin B12 Deficiency: History of B12 deficiency. 10/2018: Vitamin B-12 1058 (193-986 pg/mL), Normal [facility] CNOVon 06-01-2019 CNOV Office Visit (ENAGST ) GARYRITIKA ([id number]) 1985 F Date Time Provider Department 06/01/19 1:30 PM JOY GALEANO During your visit today, we recorded the following information about you: Pulse Blood pressure Weight Height 59/minute 113/74 77.6 kg 1.778 m Joy Galeano MD 06/01/2019 6:24 PM Addendum . [facility] [place] [address], [address] [place] [facility] - [address], [address] [place] [address] Patient's name: Ritika Vega Patient's date of : 1985 Date of encounter: 06/01/2019 History of present illness: Ritika Vega is a 33 year old female who presents for follow up of an endocrinology issue. Previous history: 05/2015: TSH 0.600 (0.358-3.740 uIU/mL), at [facility] lab, 07/2018: Around this time she started feeling some malaise. 10/2018: She saw her Primary Care Physician for palpitations. 10/13/2018: TSH <0.005 (0.358-3.740 uIU/mL), free T4 2.19 (0.76-1.46 ng/dL), Liver function tests and neutrophils are both ok. 10/18/2018: TSH <0.005 (0.358-3.740 uIU/mL), free T4 2.20 (0.76-1.46 ng/dL), Total T3 2.4 (0.6-1.8 ng/mL), 10/18/2018: Thyroid Peroxidase Antibodies 1563.3 (0.0-60.0 IU/mL), 10/25/2018: Initial consultation with me. At time of visit, the Thyroid Stimulating Immunoglobulin (TSI) was pending. 10/2018: Thyroid Stimulating Immunoglobulin (TSI) 481 (<150 %), TBI 13.9 (<1.0 U/L), 11/04/2018: I started her on methimazole 5 mg daily. 11/24/2018: Liver function tests ok, this was a lab appointment. 11/2018: TSH <0.005 (0.358-3.740 uIU/mL), free T4 1.70 (0.76-1.46 ng/dL), free T3 4.5 (2.2-4.0 pg/mL), on Methimazole 5 mg daily. Liver function tests and neutrophils are ok. off biotin for this test. 02/2019: TSH <0.005 (0.358-3.740 uIU/mL), free T4 1.32 (0.76-1.46 ng/dL), free T3 3.9 (2.2-4.0 pg/mL), on Methimazole 5 mg daily. Liver function tests and neutrophils are ok. I increased her dose to 7.5 mg daily. Interval history: The patient now returns for re-evaluation and follow-up. The above history was re-confirmed. When asked how she feels overall, she responded good On methimazole 7.5 mg (mean) daily dose. 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 No dark urine. No sore throats, fevers or chills. No dysphagia. No new or existing hoarseness. No anterior neck compression / feeling of external pressure. Denies clearing of throat, or cough. Biotin: Now off all biotin. Last dose, was multiple months ago. ? Celiac Disease: History of celiac disease (biopsy confirmed). Gluten free diet. ? Vitamin B12 Deficiency: History of B12 deficiency. 10/2018: Vitamin B-12 1058 (193-986 pg/mL), Allergies, medications, medical and surgical history, family history and social history, and problem list reviewed. Preferred pharmacy for the medications I prescribe (or may prescribe) is: [facility] Review of Systems Constitutional: Negative for chills, diaphoresis, fever, malaise/fatigue and weight loss. HENT: Negative for congestion and sore throat. Eyes: Negative for double vision and pain. Respiratory: Negative for cough, shortness of breath and wheezing. Cardiovascular: Positive for palpitations (same). Negative for chest pain and leg swelling. Gastrointestinal: Negative for abdominal pain, blood in stool, constipation, diarrhea, heartburn, nausea and vomiting. Genitourinary: Negative for flank pain, frequency, hematuria and urgency. Musculoskeletal: Negative for back pain, joint pain and myalgias. Skin: Negative for itching and rash. Neurological: Negative for dizziness, tingling, tremors, weakness and headaches. Endo/Heme/Allergies: Negative for polydipsia. Does not bruise/bleed easily. Psychiatric/Behavioral : Negative for depression and memory loss. The patient is not nervous/anxious and does not have insomnia. PAST MEDICAL HISTORY Diagnosis Date - B12 deficiency - Celiac disease Biopsy proven - Eating disorder history of age [age]. purging then restricting/ compulsive exercising - Graves disease 10/2018 PAST SURGICAL HISTORY Procedure Laterality Date - EGD Upper endoscoscopy: Dr. GriffithWiow-Kxxdb-Hbcwonu Celiac Disease - ELBOW SURGERY HX 2007 left - ELBOW SURGERY HX Left 10/2016 - KNEE SURGERY HX 2007 Left x 2 - LASIK 2013 - ORAL SURGERY PROCEDURE 2006 - TONSILLECTOMY AND ADENOIDECTOMY HX FAMILY HISTORY Problem Relation Age of Onset - Breast Cancer Paternal Grandmother - Skin Cancer Paternal Grandmother - Diabetes Maternal Grandmother - Coronary Artery Disease Maternal Grandmother - GI Maternal Grandmother Diverticulitis - Hyperlipidemia Mother - Hypertension Mother - Fibromyalgia Mother - Blood Disease Mother MTHFR - Hypertension Father - GI Brother Non-celiac gluten sensitivity - Coronary Artery Disease Maternal Grandfather - Coronary Artery Disease Paternal Grandfather - Diabetes Paternal Aunt - other (Sarcoidosis) Maternal Aunt Social History Socioeconomic History Marital status: Single Spouse name: Not on file Number of children: Not on file Years of education: Not on file Highest education level: Not on file Occupational History 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: [employer] Social Needs Financial resource strain: Not on file Food insecurity: Worry: Not on file Inability: Not on file Transportation needs: Medical: Not on file Non-medical: Not on file Tobacco Use Smoking status: Never Smoker Smokeless tobacco: Never Used Substance and Sexual Activity Alcohol use: Yes Alcohol/week: 0.0 - 5.0 standard drinks Drug use: No Sexual activity: Not Currently control/protection: Pill Lifestyle Physical activity: Days per week: Not on file Minutes per session: Not on file Stress: Not on file Relationships Social connections: Talks on phone: Not on file Gets together: Not on file Attends catholic service: Not on file Active member of club or organization: Not on file Attends meetings of clubs or organizations: Not on file Relationship status: Not on file Intimate partner violence: Fear of current or ex partner: Not on file Emotionally abused: Not on file Physically abused: Not on file Forced sexual activity: Not on file Other Topics Concerns: Service: Not Asked Blood Transfusions: Not Asked Caffeine Concern: Yes Coffee: 1 mug per day. Occupational Exposure: Not Asked Hobby Hazards: Not Asked Sleep Concern: Not Asked Stress Concern: Not Asked Weight Concern: Not Asked Special Diet: Yes Gluten free Back Care: Not Asked Exercise: Yes 5 or more days/ week Bike Helmet: Not Asked Seat Belt: Not Asked Self-Exams: Not Asked Social History Narrative Not on file Current Outpatient Medications Medication Sig Dispense Refill - budesonide (RHINOCORT NASAL) Use in the nose once daily. - metHIMazole (TAPAZOLE) 5 mg tablet Take 1.5 tablets by mouth once daily. 135 tablet 1 - Norethindrone Acet-Ethinyl Est (,) 1-20 mg-mcg per tablet Take 1 tablet by mouth once daily. - SULFACLEANSE 8-4 8-4 % susp Apply 1 application to affected area once daily. - OMEGA-3 FATTY ACIDS/FISH OIL (OMEGA 3 FISH OIL ORAL) Take 1,200 mg by mouth once daily. - triamcinolone acetonide (NASACORT) 55 mcg nasal inhaler - cyanocobalamin (VITAMIN B-12) 1,000 mcg tab Take 1,000 mcg by mouth once daily. No current facility-administered medications for this visit. BP 113/74 Pulse 59 Ht 5' 10 (1.78m) Wt 171 lb (77.6kg) BMI 24.54 kg/(m2). Last 5 Encounter Wt Readings: Date: Wt: 06/01/2019 77.6 kg (171 lb) 04/17/2019 77.2 kg (170 lb 4.8 oz) 03/07/2019 74.8 kg (165 lb) 02/28/2019 74.6 kg (164 lb 8 oz) 12/06/2018 73.1 kg (161 lb 3.2 oz) Physical Exam Constitutional: She is oriented to person, place, and time and well-developed, well-nourished, and in no distress. She appears not jaundiced. Non-toxic appearance. She does not have a sickly appearance. HENT: Head: Normocephalic and atraumatic. Eyes: EOM are normal. No scleral icterus. Neck: No thyroid mass and no thyromegaly present. No palpable thyroid nodules or masses. Non-tender anterior neck. Estimated size of thyroid gland 20 grams. Cardiovascular: Normal rate and regular rhythm. No murmur heard. Pulmonary/Chest: Effort normal and breath sounds normal. No respiratory distress. She has no wheezes. She has no rhonchi. She has no rales. Abdominal: Soft. There is no hepatomegaly. There is no tenderness. There is no guarding and no CVA tenderness. Non-toxic abdominal examination. Musculoskeletal: She exhibits no edema. Lymphadenopathy: Head (right side): No submandibular, no tonsillar and no preauricular adenopathy present. Head (left side): No submandibular, no tonsillar and no preauricular adenopathy present. She has no cervical adenopathy. Neurological: She is alert and oriented to person, place, and time. She has intact cranial nerves. She displays no tremor. Reflex Scores: Patellar reflexes are 1+ on the right side and 1+ on the left side. Skin: Skin is warm. She is not diaphoretic. Psychiatric: Mood, affect and judgment normal. Vitals reviewed. Assessment and Plans: 1. Graves disease On methimazole mean dose 7.5 mg daily. Euthyroid exam. I reviewed the risk of anti-thyroid meds, including, but not limited to, agranulocytosis, hepatotoxicity, arthralgias, and rash. I will check her thyroid hormone levels. Once those are reviewed, then I will adjust the dose(s) as needed. Will hold off on sending Rx. She will contact me via [facility] with new pharmacy information (next week, when she learns this). - TSH BLD; Future - T4 FREE/FREE THYROX; Future - T3 FREE BLD; Future - WBC W DIFF; Future - HEPATIC FUNCTION PNL; Future 2. Thyrotoxicosis without thyroid storm, unspecified thyrotoxicosis type Treat #1 3. Autoimmune disease (HCC) 4. Celiac disease Gluten free diet. 5. Taking medication for chronic disease Methimazole Joy Galeano MD Addendum to note: June 01, 201905/2019: TSH 0.006 (0.358-3.740 uIU/mL), free T4 1.39 (0.76-1.46 ng/dL), free T3 4.1 (2.2-4.0 pg/mL), on Methimazole 7.5 mg daily. Liver function tests and neutrophils are ok. I increased her to Methimazole 10 mg daily. I will send her a message, in the [facility] portal. She wanted to wait on Rx till she knows what her new plan requires. Joy Galeano MD 06/01/2019 18:24:32 Joy Galeano MD 06/01/2019 1:45 PM Signed Methimazole (Tapazole) or propylthiouracil (PTU) notes: You are on (or may be prescribed) methimazole (Tapazole) or propylthiouracil (PTU) for your over-active thyroid gland. These drug are considered Anti-thyroid drugs, as they are prescribed to slow-down the thyroid gland. Remember to call me for: Abdominal pains, especially right upper quadrant of the abdomen. Nausea, vomiting. Dark (tea-colored) urine. These could be signs of liver-toxicity. Also call me if: Sore throats. Fevers. These could be signs that the methimazole or propylthiouracil (PTU) is affecting the white blood cells. Note, both of the above are very rare, but contact me if those symptoms occur. Referring Provider: JOY GALEANO [[id number]] Allergies As of Date: 06/01/2019 (No Known Allergies) Date Reviewed: 06/01/2019 Reviewed by: Joy Galeano - Fully Assessed Reason for Visit: Follow Up [171] Thyroid Problem [110] Primary Visit Diagnosis:Graves disease [E05.00] Other Visit Diagnoses:Thyrotoxicos is without thyroid storm, unspecified thyrotoxicosis type [E05.90] Autoimmune disease (HCC) [D89.89] Celiac disease [K90.0] Taking medication for chronic disease [R69] Order(s):TSH BLD [SQTSH] Order #: [id number] FUTURE T4 FREE/FREE THYROX [SQFT4] Order #: [id number] FUTURE T3 FREE BLD [SQFREET3] Order #: [id number] FUTURE WBC W DIFF [1536592] Order #: [id number] FUTURE HEPATIC FUNCTION PNL [SQHFP] Order #: [id number] FUTURE Prescriptions as of 06/01/2019 Sig: RHINOCORT NASAL Use in the nose once daily. 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 These drug are considered Anti-thyroid drugs, as they are prescribed to slow-down the thyroid gland. Remember to call me for: Abdominal pains, especially right upper quadrant of the abdomen. Nausea, vomiting. Dark (tea-colored) urine. These could be signs of liver-toxicity. Also call me if: Sore throats. Fevers. These could be signs that the methimazole or propylthiouracil (PTU) is affecting the white blood cells. Note, both of the above are very rare, but contact me if those symptoms occur. Medications Discontinued During This Encounter triamcinolone acetonide (NASACORT) 5* 02/06/2019 06/01/2019 Class: Historical Med Sig: Disc: Discontinued by another Health Care Provider Disposition: Return in about 4 months (around 10/02/2019) for Any time slot. BOV type of appointment.. Follow-up and Disposition History Recorded Encounter Status:Closed by JOY GALEANO MD on 06/01/19 Normal [facility] Free T3on 06-01-2019 Free T3 [Mass/Vol] 4.1 pg/mL High 2.2-4.0 [facility] Comment on above: Performed By: #### F T4 #### [address] [address] Free Thyroxineon 06-01-2019 Free T4 [Mass/Vol] 1.39 ng/dL Normal 0.76-1.46 [facility] Comment on above: Performed By: #### F T4 #### [address] [address] Hepatic Panelon 06-01-2019 ALP [Catalytic activity/Vol] 62 U/L Normal 45-117 [facility] Comment on above: Performed By: #### F T4 #### [address] [address] Bilirubin [Mass/Vol] 0.5 mg/dL Normal 0.2-1.0 [facility] Comment on above: Performed By: #### F T4 #### [facility] [address] [place], [place] [address] Protein [Mass/Vol] 6.8 g/dL Normal 6.4-8.2 [facility] Comment on above: Performed By: #### F T4 #### [facility] [address] [place], [place] [address] AST [Catalytic activity/Vol] 18 U/L Normal 15-37 [facility] Comment on above: Performed By: #### F T4 #### [facility] [address] [place] [address] ALT [Catalytic activity/Vol] 31 U/L Normal 12-78 [facility] Comment on above: Performed By: #### F T4 #### [facility] [address] [place], [place] [address] Bilirubin [Mass/Vol] 0.14 mg/dL Normal 0.00-0.20 [facility] Comment on above: Performed By: #### F T4 #### [facility] [address] [place], [place] [address] Albumin [Mass/Vol] 3.9 g/dL Normal 3.4-5.0 [facility] Comment on above: Performed By: #### F T4 #### [facility] [address] [place] [address] PROGRESSon 06-01-2019 PROGRESS HNO ID: [id number] Author: Joy Galeano Service: ? Author Type: Physician Type: Progress Notes Filed: 06/01/2019 6:24 PM Note Text: . [facility] - [place] [address], [address] [place], [place] [id number] [place] [address] General Endocrinology - [address], [address] [place] [address] Patient's name: Ritika Vega Patient's date of : 1985 Date of encounter: 06/01/2019 History of present illness: Ritika Vega is a 33 year old female who presents for follow up of an endocrinology issue. Previous history: 05/2015: TSH 0.600 (0.358-3.740 uIU/mL), at [facility] lab, 07/2018: Around this time she started feeling some malaise. 10/2018: She saw her Primary Care Physician for palpitations. 10/13/2018: TSH <0.005 (0.358-3.740 uIU/mL), free T4 2.19 (0.76-1.46 ng/dL), Liver function tests and neutrophils are both ok. 10/18/2018: TSH <0.005 (0.358-3.740 uIU/mL), free T4 2.20 (0.76-1.46 ng/dL), Total T3 2.4 (0.6-1.8 ng/mL), 10/18/2018: Thyroid Peroxidase Antibodies 1563.3 (0.0-60.0 IU/mL), 10/25/2018: Initial consultation with me. At time of visit, the Thyroid Stimulating Immunoglobulin (TSI) was pending. 10/2018: Thyroid Stimulating Immunoglobulin (TSI) 481 (<150 %), TBI 13.9 (<1.0 U/L), 11/04/2018: I started her on methimazole 5 mg daily. 11/24/2018: Liver function tests ok, this was a lab appointment. 11/2018: TSH <0.005 (0.358-3.740 uIU/mL), free T4 1.70 (0.76-1.46 ng/dL), free T3 4.5 (2.2-4.0 pg/mL), on Methimazole 5 mg daily. Liver function tests and neutrophils are ok. off biotin for this test. 02/2019: TSH <0.005 (0.358-3.740 uIU/mL), free T4 1.32 (0.76-1.46 ng/dL), free T3 3.9 (2.2-4.0 pg/mL), on Methimazole 5 mg daily. Liver function tests and neutrophils are ok. I increased her dose to 7.5 mg daily. Interval history: The patient now returns for re-evaluation and follow-up. The above history was re-confirmed. When asked how she feels overall, she responded good On methimazole 7.5 mg (mean) daily dose. 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 No dark urine. No sore throats, fevers or chills. No dysphagia. No new or existing hoarseness. No anterior neck compression / feeling of external pressure. Denies clearing of throat, or cough. Biotin: Now off all biotin. Last dose, was multiple months ago. ? Celiac Disease: History of celiac disease (biopsy confirmed). Gluten free diet. ? Vitamin B12 Deficiency: History of B12 deficiency. 10/2018: Vitamin B-12 1058 (193-986 pg/mL), Allergies, medications, medical and surgical history, family history and social history, and problem list reviewed. Preferred pharmacy for the medications I prescribe (or may prescribe) is: [facility] Review of Systems Constitutional: Negative for chills, diaphoresis, fever, malaise/fatigue and weight loss. HENT: Negative for congestion and sore throat. Eyes: Negative for double vision and pain. Respiratory: Negative for cough, shortness of breath and wheezing. Cardiovascular: Positive for palpitations (same). Negative for chest pain and leg swelling. Gastrointestinal: Negative for abdominal pain, blood in stool, constipation, diarrhea, heartburn, nausea and vomiting. Genitourinary: Negative for flank pain, frequency, hematuria and urgency. Musculoskeletal: Negative for back pain, joint pain and myalgias. Skin: Negative for itching and rash. Neurological: Negative for dizziness, tingling, tremors, weakness and headaches. Endo/Heme/Allergies: Negative for polydipsia. Does not bruise/bleed easily. Psychiatric/Behavioral : Negative for depression and memory loss. The patient is not nervous/anxious and does not have insomnia. PAST MEDICAL HISTORY Diagnosis Date - B12 deficiency - Celiac disease Biopsy proven - Eating disorder history of age [age]. purging then restricting/ compulsive exercising - Graves disease 10/2018 PAST SURGICAL HISTORY Procedure Laterality Date - EGD Upper endoscoscopy: Dr. GriffithXtmt-Ghvlk-Kyjkqpe Celiac Disease - ELBOW SURGERY HX 2008 left - ELBOW SURGERY HX Left 10/2016 - KNEE SURGERY HX 2007 Left x 2 - LASIK 2013 - ORAL SURGERY PROCEDURE 2006 - TONSILLECTOMY AND ADENOIDECTOMY HX FAMILY HISTORY Problem Relation Age of Onset - Breast Cancer Paternal Grandmother - Skin Cancer Paternal Grandmother - Diabetes Maternal Grandmother - Coronary Artery Disease Maternal Grandmother - GI Maternal Grandmother Diverticulitis - Hyperlipidemia Mother - Hypertension Mother - Fibromyalgia Mother - Blood Disease Mother MTHFR - Hypertension Father - GI Brother Non-celiac gluten sensitivity - Coronary Artery Disease Maternal Grandfather - Coronary Artery Disease Paternal Grandfather - Diabetes Paternal Aunt - other (Sarcoidosis) Maternal Aunt Social History Socioeconomic History Marital status: Single Spouse name: Not on file Number of children: Not on file Years of education: Not on file Highest education level: Not on file Occupational History 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: [employer] Social Needs Financial resource strain: Not on file Food insecurity: Worry: Not on file Inability: Not on file Transportation needs: Medical: Not on file Non-medical: Not on file Tobacco Use Smoking status: Never Smoker Smokeless tobacco: Never Used Substance and Sexual Activity Alcohol use: Yes Alcohol/week: 0.0 - 5.0 standard drinks Drug use: No Sexual activity: Not Currently control/protection: Pill Lifestyle Physical activity: Days per week: Not on file Minutes per session: Not on file Stress: Not on file Relationships Social connections: Talks on phone: Not on file Gets together: Not on file Attends catholic service: Not on file Active member of club or organization: Not on file Attends meetings of clubs or organizations: Not on file Relationship status: Not on file Intimate partner violence: Fear of current or ex partner: Not on file Emotionally abused: Not on file Physically abused: Not on file Forced sexual activity: Not on file Other Topics Concerns: Service: Not Asked Blood Transfusions: Not Asked Caffeine Concern: Yes Coffee: 1 mug per day. Occupational Exposure: Not Asked Hobby Hazards: Not Asked Sleep Concern: Not Asked Stress Concern: Not Asked Weight Concern: Not Asked Special Diet: Yes Gluten free Back Care: Not Asked Exercise: Yes 5 or more days/ week Bike Helmet: Not Asked Seat Belt: Not Asked Self-Exams: Not Asked Social History Narrative Not on file Current Outpatient Medications Medication Sig Dispense Refill - budesonide (RHINOCORT NASAL) Use in the nose once daily. - metHIMazole (TAPAZOLE) 5 mg tablet Take 1.5 tablets by mouth once daily. 135 tablet 1 - Norethindrone Acet-Ethinyl Est (,) 1-20 mg-mcg per tablet Take 1 tablet by mouth once daily. - SULFACLEANSE 8-4 8-4 % susp Apply 1 application to affected area once daily. - OMEGA-3 FATTY ACIDS/FISH OIL (OMEGA 3 FISH OIL ORAL) Take 1,200 mg by mouth once daily. - triamcinolone acetonide (NASACORT) 55 mcg nasal inhaler - cyanocobalamin (VITAMIN B-12) 1,000 mcg tab Take 1,000 mcg by mouth once daily. No current facility-administered medications for this visit. BP 113/74 Pulse 59 Ht 5' 10 (1.78m) Wt 171 lb (77.6kg) BMI 24.54 kg/(m2). Last 5 Encounter Wt Readings: Date: Wt: 06/01/2019 77.6 kg (171 lb) 04/17/2019 77.2 kg (170 lb 4.8 oz) 03/07/2019 74.8 kg (165 lb) 02/28/2019 74.6 kg (164 lb 8 oz) 12/06/2018 73.1 kg (161 lb 3.2 oz) Physical Exam Constitutional: She is oriented to person, place, and time and well-developed, well-nourished, and in no distress. She appears not jaundiced. Non-toxic appearance. She does not have a sickly appearance. HENT: Head: Normocephalic and atraumatic. Eyes: EOM are normal. No scleral icterus. Neck: No thyroid mass and no thyromegaly present. No palpable thyroid nodules or masses. Non-tender anterior neck. Estimated size of thyroid gland 20 grams. Cardiovascular: Normal rate and regular rhythm. No murmur heard. Pulmonary/Chest: Effort normal and breath sounds normal. No respiratory distress. She has no wheezes. She has no rhonchi. She has no rales. Abdominal: Soft. There is no hepatomegaly. There is no tenderness. There is no guarding and no CVA tenderness. Non-toxic abdominal examination. Musculoskeletal: She exhibits no edema. Lymphadenopathy: Head (right side): No submandibular, no tonsillar and no preauricular adenopathy present. Head (left side): No submandibular, no tonsillar and no preauricular adenopathy present. She has no cervical adenopathy. Neurological: She is alert and oriented to person, place, and time. She has intact cranial nerves. She displays no tremor. Reflex Scores: Patellar reflexes are 1+ on the right side and 1+ on the left side. Skin: Skin is warm. She is not diaphoretic. Psychiatric: Mood, affect and judgment normal. Vitals reviewed. Assessment and Plans: 1. Graves disease On methimazole mean dose 7.5 mg daily. Euthyroid exam. I reviewed the risk of anti-thyroid meds, including, but not limited to, agranulocytosis, hepatotoxicity, arthralgias, and rash. I will check her thyroid hormone levels. Once those are reviewed, then I will adjust the dose(s) as needed. Will hold off on sending Rx. She will contact me via [facility] with new pharmacy information (next week, when she learns this). - TSH BLD; Future - T4 FREE/FREE THYROX; Future - T3 FREE BLD; Future - WBC W DIFF; Future - HEPATIC FUNCTION PNL; Future 2. Thyrotoxicosis without thyroid storm, unspecified thyrotoxicosis type Treat #1 3. Autoimmune disease (HCC) 4. Celiac disease Gluten free diet. 5. Taking medication for chronic disease Methimazole Joy Galeano MD Addendum to note: June 01, 201905/2019: TSH 0.006 (0.358-3.740 uIU/mL), free T4 1.39 (0.76-1.46 ng/dL), free T3 4.1 (2.2-4.0 pg/mL), on Methimazole 7.5 mg daily. Liver function tests and neutrophils are ok. I increased her to Methimazole 10 mg daily. I will send her a message, in the [employer] portal. She wanted to wait on Rx till she knows what her new plan requires. Joy Galeano MD 06/01/2019 18:24:32 Normal [facility] PROGRESS HNO ID: [id number] Author: Joy Galeano Service: ? Author Type: Physician Type: Progress Notes Filed: 06/01/2019 6:35 AM Note Text: Note: The following is an abstracted note of the either a previous or a new History of Present Illness. This is in prep for an up-coming appointment. This is not a vjad-yc-axxb encounter. Previous history as follows: Previous history: 05/2015: TSH 0.600 (0.358-3.740 uIU/mL), at [facility] lab, 07/2018: Around this time she started feeling some malaise. 10/2018: She saw her Primary Care Physician for palpitations. 10/13/2018: TSH <0.005 (0.358-3.740 uIU/mL), free T4 2.19 (0.76-1.46 ng/dL), Liver function tests and neutrophils are both ok. 10/18/2018: TSH <0.005 (0.358-3.740 uIU/mL), free T4 2.20 (0.76-1.46 ng/dL), Total T3 2.4 (0.6-1.8 ng/mL), 10/18/2018: Thyroid Peroxidase Antibodies 1563.3 (0.0-60.0 IU/mL), 10/25/2018: Initial consultation with me. At time of visit, the Thyroid Stimulating Immunoglobulin (TSI) was pending. 10/2018: Thyroid Stimulating Immunoglobulin (TSI) 481 (<150 %), TBI 13.9 (<1.0 U/L), 11/04/2018: I started her on methimazole 5 mg daily. 11/24/2018: Liver function tests ok, this was a lab appointment. 11/2018: TSH <0.005 (0.358-3.740 uIU/mL), free T4 1.70 (0.76-1.46 ng/dL), free T3 4.5 (2.2-4.0 pg/mL), on Methimazole 5 mg daily. Liver function tests and neutrophils are ok. off biotin for this test. 02/2019: TSH <0.005 (0.358-3.740 uIU/mL), free T4 1.32 (0.76-1.46 ng/dL), free T3 3.9 (2.2-4.0 pg/mL), on Methimazole 5 mg daily. Liver function tests and neutrophils are ok. I increased her dose to 7.5 mg daily. Biotin: Now off all biotin. Last dose, was few month. ? Celiac Disease: History of celiac disease (biopsy confirmed). Gluten free diet. ? Vitamin B12 Deficiency: History of B12 deficiency. 10/2018: Vitamin B-12 1058 (193-986 pg/mL), Normal [facility] TSH, 3rd generationon 2018 TSH, 3rd generation 0.006 uIU/mL Low 0.358-3.740 [facility] Comment on above: Performed By: #### F T4 #### [facility] [address] [place] [address] WBC with Differentialon 05-09 Abs Immature Grans 0.01 thou/cmm Normal 0.00-0.05 [facility] Comment on above: Performed By: #### F T4 #### [place] [address] Abs Neut (ANC) 2.51 thou/cmm Normal 1.56-6.13 [facility] Comment on above: Performed By: #### F T4 #### [facility] [address] [place] [address] Abs. Baso 0.05 thou/cmm Normal 0.01-0.08 [facility] Comment on above: Performed By: #### F T4 #### [facility] [address] [place] [address] Abs. [place] 0.42 thou/cmm Normal 0.27-0.70 [facility] Comment on above: Performed By: #### F T4 #### [facility] [address] [place] [address] Basophils/100 WBC (Bld) 0.9 % Normal [facility] Comment on above: Performed By: #### F T4 #### [facility] [address] [place] [address] Eosinophils (Bld) [#/Vol] 0.06 thou/cmm Normal 0.00-0.31 [facility] Comment on above: Performed By: #### F T4 #### [place] [id number] Eosinophils/100 WBC (Bld) 1.0 % Normal [facility] Comment on above: Performed By: #### F T4 #### [facility] [address] [place], [place] [address] Immature Grans 0.20 % Normal [facility] Comment on above: Performed By: #### F T4 #### [facility] [address] [place], [place] [address] Lymphocytes (Bld) [#/Vol] 2.68 thou/cmm Normal 1.18-3.74 [facility] Comment on above: Performed By: #### F T4 #### [facility] [address] [place], [place] [address] Lymphocytes/100 WBC (Bld) 46.8 % Normal [facility] Comment on above: Performed By: #### F T4 #### [facility] [address] [place], [place] [address] Monocytes/100 WBC (Bld) 7.3 % Normal [facility] Comment on above: Performed By: #### F T4 #### [facility] [address] [place], [place] [address] Seg Neutrophil 43.8 % Normal [facility] Comment on above: Performed By: #### F T4 #### [facility] [address] [place], [place] [address] WBC (Bld) [#/Vol] 5.73 thou/cmm Normal 3.98-10.04 [facility] Comment on above: Performed By: #### F T4 #### [facility] [address] [place], [place] [address] CNOVon 04-17-2019 CNOV Office Visit ([facility]) RITIKA VEGA ([id number]) 1985 F Date Time Provider Department 04/17/19 2:00 PM SANDY DAWN [facility] During your visit today, we recorded the following information about you: Temperature Pulse Respiration Blood pressure 97.3 degrees 57/minute 18/minute 118/72 Weight Height Last Period 77.2 kg 1.778 m 03/17/19 Sandy Dawn, 04/17/2019 3:17 PM Signed SUBJECTIVE: Ritika Vega is a 33 year old female here today for an annual physical. I reviewed her past medical, surgical, social, and family histories today and updated chart. Allergies, chronic medications, and supplements were also reviewed and her list is now up to date. Concern(s) today include: Wants to touch base since her Graves disease diagnosis. She has gained weight since her diagnosis. States that her digestive system is still really sensitive. She has been gluten free for 5 years and for the past 6 months hasn't felt normal- always a lot of rumbling in abdomen. Was having loose stools 2-3 times per morning. She has not tried cutting dairy from her diet. (has known Celiac disease) Currently she is on tapazole for the graves disease. (Dr Galeano- sees him every 3 months). Plan was to try the medication before ablation She is focusing on figuring out her thyroid right now. She struggles with hearing her weight With a history fo an eating disorder but she has not intentionally restricted food intake She follows Dr Nj for gynecological exams. She is performing self-breast exams? No Any concerns about her breasts? No Any family history of breast cancer? Yes, paternal grandmother Patient's last menstrual period was 03/17/2019 (approximate). Are her periods regular? Yes Her medications were reviewed today and her list is now up to date. She is compliant on taking her medications :Yes She is tolerating her medication(s) without side effects: Yes She is trying to eat a balanced diet: Yes She is getting some exercise in: Yes- Crossfit 5-6 days a week. DTAP,TDAP,TD(1 - Tdap) due on 2005 HPV TESTING due on 2007 PAP TESTING due on 01/06/2019 ANNUAL PCP TEAM CHRONIC DISEASE VISIT due on 02/29/2020 INFLUENZA Completed No visits with results within 1 Day(s) from this visit. Latest known visit with results is: Hospital Outpatient Visit on 03/07/2019 Component Date Value Ref Range Status - TSH 03/07/2019 <0.005* 0.358 - 3.740 uIU/mL Final - Free Thyroxine 03/07/2019 1.32 0.76 - 1.46 ng/dL Final - Free T3 03/07/2019 3.9 2.2 - 4.0 pg/ml Final - WBC 03/07/2019 6.67 3.98 - 10.04 thou/cmm Final - Seg Neutrophil 03/07/2019 67.1 % Final - Immature Grans 03/07/2019 0.40 % Final - Lymphocyte 03/07/2019 25.0 % Final - Monocyte 03/07/2019 6.3 % Final - Eosinophil 03/07/2019 0.6 % Final - Basophil 03/07/2019 0.6 % Final - Abs. Neut(Anc) 03/07/2019 4.48 1.56 - 6.13 thou/cmm Final - Immature Grans # 03/07/2019 0.03 0.00 - 0.05 thou/cmm Final - Abs. Lymph 03/07/2019 1.67 1.18 - 3.74 thou/cmm Final - Abs. [place] 03/07/2019 0.42 0.27 - 0.70 thou/cmm Final - Abs. Eosin 03/07/2019 0.04 0.00 - 0.31 thou/cmm Final - Abs. Baso 03/07/2019 0.04 0.01 - 0.08 thou/cmm Final - Albumin 03/07/2019 4.0 3.4 - 5.0 g/dL Final - ALT 03/07/2019 50 12 - 78 U/L Final - Alkaline Phosphatase 03/07/2019 90 46 - 116 U/L Final - Protein, Total 03/07/2019 7.3 6.4 - 8.2 g/dL Final - AST 03/07/2019 22 9 - 37 U/L Final - Bilirubin, Total 03/07/2019 0.5 0.2 - 1.0 mg/dL Final - Direct Bilirubin 03/07/2019 0.15 0.00 - 0.20 mg/dL Final PAST MEDICAL HISTORY Diagnosis Date - B12 deficiency - Celiac disease Biopsy proven - Eating disorder history of age [age]. purging then restricting/ compulsive exercising - Graves disease 10/2018 PAST SURGICAL HISTORY Procedure Laterality Date - EGD Upper endoscoscopy: Dr. GriffithFgbt-Vhoey-Kxhlkji Celiac Disease - ELBOW SURGERY HX 2008 left - ELBOW SURGERY HX Left 10/2016 - KNEE SURGERY HX 2007 Left x 2 - LASIK 2013 - ORAL SURGERY PROCEDURE 2006 - TONSILLECTOMY AND ADENOIDECTOMY HX Social History Socioeconomic History Marital status: Single Spouse name: Not on file Number of children: Not on file Years of education: Not on file Highest education level: Not on file Social Needs Financial resource strain: Not on file Food insecurity - worry: Not on file Food insecurity - inability: Not on file Transportation needs - medical: Not on file Transportation needs - non-medical: Not on file Occupational History 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 Occupational Exposure: Not Asked Hobby Hazards: Not Asked Sleep Concern: Not Asked Stress Concern: Not Asked Weight Concern: Not Asked Special Diet: Yes Gluten free Back Care: Not Asked Exercise: Yes 5 or more days/ week Bike Helmet: Not Asked Seat Belt: Not Asked Self-Exams: Not Asked Social History Narrative Not on file ALLERGIES No Known Allergies Family History Problem Relation Age of Onset - Breast Cancer Paternal Grandmother - Skin Cancer Paternal Grandmother - Diabetes Maternal Grandmother - Coronary Artery Disease Maternal Grandmother - GI Maternal Grandmother Diverticulitis - Hyperlipidemia Mother - Hypertension Mother - Fibromyalgia Mother - Blood Disease Mother MTHFR - Hypertension Father - GI Brother Non-celiac gluten sensitivity - Coronary Artery Disease Maternal Grandfather - Coronary Artery Disease Paternal Grandfather - Diabetes Paternal Aunt - other (Sarcoidosis) Maternal Aunt Current Outpatient Medications Medication Sig Dispense Refill - budesonide (RHINOCORT NASAL) Use in the nose once daily. - metHIMazole (TAPAZOLE) 5 mg tablet Take 1.5 tablets by mouth once daily. 135 tablet 1 - cyanocobalamin (VITAMIN B-12) 1,000 mcg tab Take 1,000 mcg by mouth once daily. - Norethindrone Acet-Ethinyl Est (,) 1-20 mg-mcg per tablet Take 1 tablet by mouth once daily. - SULFACLEANSE 8-4 8-4 % susp Apply 1 application to affected area once daily. - OMEGA-3 FATTY ACIDS/FISH OIL (OMEGA 3 FISH OIL ORAL) Take 1,200 mg by mouth once daily. - triamcinolone acetonide (NASACORT) 55 mcg nasal inhaler No current facility-administered medications for this visit. Review of Systems Constitutional: Negative for chills, diaphoresis, fever, malaise/fatigue and weight loss. HENT: Negative for congestion, ear pain, hearing loss, nosebleeds and sore throat. Eyes: Negative for blurred vision, double vision, pain and redness. Respiratory: Negative for cough, shortness of breath and wheezing. Cardiovascular: Negative for chest pain, palpitations, claudication and leg swelling. Gastrointestinal: Negative for abdominal pain, blood in stool, constipation, diarrhea, nausea and vomiting. Genitourinary: Negative for dysuria, frequency and hematuria. Musculoskeletal: Negative for falls, joint pain and myalgias. Skin: Positive for itching and rash. Neurological: Negative for dizziness, tingling, tremors, focal weakness and headaches. Endo/Heme/Allergies: Negative for polydipsia. Does not bruise/bleed easily. Psychiatric/Behavioral : Negative for depression, substance abuse and suicidal ideas. The patient is not nervous/anxious and does not have insomnia. BP 118/72 Pulse 57 Temp (Src) 97.3 (Left Tympanic) Resp 18 Ht 5' 10 (1.78m) Wt 170 lb 4.8 oz (77.2kg) SpO2 98% LMP 03/17/2019 BMI 24.44 kg/(m2). Physical Exam Constitutional: She is oriented to person, place, and time and well-developed, well-nourished, and in no distress. No distress. HENT: Head: Normocephalic and atraumatic. Right Ear: Hearing, tympanic membrane, external ear and ear canal normal. Left Ear: Hearing, tympanic membrane, external ear and ear canal normal. Nose: Nose normal. Mouth/Throat: Oropharynx is clear and moist. Normal dentition. No oropharyngeal exudate. Eyes: Pupils are equal, round, and reactive to light. Conjunctivae and EOM are normal. Right eye exhibits no discharge. Left eye exhibits no discharge. No scleral icterus. Neck: Normal range of motion. Neck supple. Carotid bruit is not present. No tracheal deviation present. No thyromegaly present. Cardiovascular: Normal rate, regular rhythm, normal heart sounds and intact distal pulses. Exam reveals no gallop and no friction rub. No murmur heard. Pulmonary/Chest: Effort normal and breath sounds normal. No respiratory distress. She has no wheezes. She has no rales. Abdominal: Soft. Bowel sounds are normal. She exhibits no distension and no mass. There is no tenderness. There is no guarding. Musculoskeletal: Normal range of motion. She exhibits no edema or tenderness. Lymphadenopathy: She has no cervical adenopathy. Right: No supraclavicular adenopathy present. Left: No supraclavicular adenopathy present. Neurological: She is alert and oriented to person, place, and time. She has normal reflexes. Gait normal. Skin: Skin is warm and dry. No rash noted. She is not diaphoretic. No erythema. Psychiatric: Mood, memory, affect and judgment normal. Vitals reviewed. New medication(s) prescribed today: None. Counseling completed in adopting health behaviors such as avoiding excessive alcohol use, avoid tobacco use, improve nutrition, and engage in physical activities. Discussed female health maintenance guidelines per standard protocol. Copy of written care plan, clinical summary, treatment plan, new medications, goals, and self management requirements were given to patient. ASSESSMENT/PLAN: 1. Encounter for general adult medical examination with abnormal findings - ICD9: V70.0, ICD10: Z00.01 (primary diagnosis) - Encouraged monthly Breast Self Exam - Recommended regular aerobic exercise. - Vaccination(s) recommended today of Tdap - Follow up for annual exam in one year. - TDAP VACCINE AGE 7+ IM 2. Graves disease - ICD9: 242.00, ICD10: E05.00 Continue methimazole, follows with color television console monitor, next visit May 2019 3. Celiac disease - ICD9: 579.0, ICD10: K90.0 Stable, continue gluten free diet 4. Need for Tdap vaccination - ICD9: V06.1, ICD10: Z23 - TDAP VACCINE AGE 7+ IM Sandy Dawn DO Referring Provider: SANDY DAWN [[id number]] Allergies As of Date: 04/17/2019 (No Known Allergies) Date Reviewed: 03/07/2019 Reviewed by: Joy Galeano - Fully Assessed Reason for Visit: Physical [83] Primary Visit Diagnosis:Encounter for general adult medical examination with abnormal findings [Z00.01] Other Visit Diagnoses:Graves disease [E05.00] Celiac disease [K90.0] Need for Tdap vaccination [Z23] Order(s):TDAP VACCINE AGE 7+ IM [[id number]] Order #: [id number] Prescriptions as of 04/17/2019 Sig: RHINOCORT NASAL Use in the nose once daily. 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 Author Type: Physician Type: Progress Notes Filed: 04/17/2019 3:17 PM Note Text: SUBJECTIVE: Ritika Vega is a 33 year old female here today for an annual physical. I reviewed her past medical, surgical, social, and family histories today and updated chart. Allergies, chronic medications, and supplements were also reviewed and her list is now up to date. Concern(s) today include: Wants to touch base since her Graves disease diagnosis. She has gained weight since her diagnosis. States that her digestive system is still really sensitive. She has been gluten free for 5 years and for the past 6 months hasn't felt normal- always a lot of rumbling in abdomen. Was having loose stools 2-3 times per morning. She has not tried cutting dairy from her diet. (has known Celiac disease) Currently she is on tapazole for the graves disease. (Dr Galeano- sees him every 3 months). Plan was to try the medication before ablation She is focusing on figuring out her thyroid right now. She struggles with hearing her weight With a history fo an eating disorder but she has not intentionally restricted food intake She follows Dr Nj for gynecological exams. She is performing self-breast exams? No Any concerns about her breasts? No Any family history of breast cancer? Yes, paternal grandmother Patient's last menstrual period was 03/17/2019 (approximate). Are her periods regular? Yes Her medications were reviewed today and her list is now up to date. She is compliant on taking her medications :Yes She is tolerating her medication(s) without side effects: Yes She is trying to eat a balanced diet: Yes She is getting some exercise in: Yes- Crossfit 5-6 days a week. DTAP,TDAP,TD(1 - Tdap) due on 2005 HPV TESTING due on 2007 PAP TESTING due on 01/06/2019 ANNUAL PCP TEAM CHRONIC DISEASE VISIT due on 02/29/2020 INFLUENZA Completed No visits with results within 1 Day(s) from this visit. Latest known visit with results is: Hospital Outpatient Visit on 03/07/2019 Component Date Value Ref Range Status - TSH 03/07/2019 <0.005* 0.358 - 3.740 uIU/mL Final - Free Thyroxine 03/07/2019 1.32 0.76 - 1.46 ng/dL Final - Free T3 03/07/2019 3.9 2.2 - 4.0 pg/ml Final - WBC 03/07/2019 6.67 3.98 - 10.04 thou/cmm Final - Seg Neutrophil 03/07/2019 67.1 % Final - Immature Grans 03/07/2019 0.40 % Final - Lymphocyte 03/07/2019 25.0 % Final - Monocyte 03/07/2019 6.3 % Final - Eosinophil 03/07/2019 0.6 % Final - Basophil 03/07/2019 0.6 % Final - Abs. Neut(Anc) 03/07/2019 4.48 1.56 - 6.13 thou/cmm Final - Immature Grans # 03/07/2019 0.03 0.00 - 0.05 thou/cmm Final - Abs. Lymph 03/07/2019 1.67 1.18 - 3.74 thou/cmm Final - Abs. [place] 03/07/2019 0.42 0.27 - 0.70 thou/cmm Final - Abs. Eosin 03/07/2019 0.04 0.00 - 0.31 thou/cmm Final - Abs. Baso 03/07/2019 0.04 0.01 - 0.08 thou/cmm Final - Albumin 03/07/2019 4.0 3.4 - 5.0 g/dL Final - ALT 03/07/2019 50 12 - 78 U/L Final - Alkaline Phosphatase 03/07/2019 90 46 - 116 U/L Final - Protein, Total 03/07/2019 7.3 6.4 - 8.2 g/dL Final - AST 03/07/2019 22 9 - 37 U/L Final - Bilirubin, Total 03/07/2019 0.5 0.2 - 1.0 mg/dL Final - Direct Bilirubin 03/07/2019 0.15 0.00 - 0.20 mg/dL Final PAST MEDICAL HISTORY Diagnosis Date - B12 deficiency - Celiac disease Biopsy proven - Eating disorder history of age [age]. purging then restricting/ compulsive exercising - Graves disease 10/2018 PAST SURGICAL HISTORY Procedure Laterality Date - EGD Upper endoscoscopy: Dr. PatricioXdmg-Ndfwg-Setwkit Celiac Disease - ELBOW SURGERY HX 2008 left - ELBOW SURGERY HX Left 10/2016 - KNEE SURGERY HX 2007 Left x 2 - LASIK 2013 - ORAL SURGERY PROCEDURE 2006 - TONSILLECTOMY AND ADENOIDECTOMY HX Social History Socioeconomic History Marital status: Single Spouse name: Not on file Number of children: Not on file Years of education: Not on file Highest education level: Not on file Social Needs Financial resource strain: Not on file Food insecurity - worry: Not on file Food insecurity - inability: Not on file Transportation needs - medical: Not on file Transportation needs - non-medical: Not on file Occupational History 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 Occupational Exposure: Not Asked Hobby Hazards: Not Asked Sleep Concern: Not Asked Stress Concern: Not Asked Weight Concern: Not Asked Special Diet: Yes Gluten free Back Care: Not Asked Exercise: Yes 5 or more days/ week Bike Helmet: Not Asked Seat Belt: Not Asked Self-Exams: Not Asked Social History Narrative Not on file ALLERGIES No Known Allergies Family History Problem Relation Age of Onset - Breast Cancer Paternal Grandmother - Skin Cancer Paternal Grandmother - Diabetes Maternal Grandmother - Coronary Artery Disease Maternal Grandmother - GI Maternal Grandmother Diverticulitis - Hyperlipidemia Mother - Hypertension Mother - Fibromyalgia Mother - Blood Disease Mother MTHFR - Hypertension Father - GI Brother Non-celiac gluten sensitivity - Coronary Artery Disease Maternal Grandfather - Coronary Artery Disease Paternal Grandfather - Diabetes Paternal Aunt - other (Sarcoidosis) Maternal Aunt Current Outpatient Medications Medication Sig Dispense Refill - budesonide (RHINOCORT NASAL) Use in the nose once daily. - metHIMazole (TAPAZOLE) 5 mg tablet Take 1.5 tablets by mouth once daily. 135 tablet 1 - cyanocobalamin (VITAMIN B-12) 1,000 mcg tab Take 1,000 mcg by mouth once daily. - Norethindrone Acet-Ethinyl Est (JUNE,) 1-20 mg-mcg per tablet Take 1 tablet by mouth once daily. - SULFACLEANSE 8-4 8-4 % susp Apply 1 application to affected area once daily. - OMEGA-3 FATTY ACIDS/FISH OIL (OMEGA 3 FISH OIL ORAL) Take 1,200 mg by mouth once daily. - triamcinolone acetonide (NASACORT) 55 mcg nasal inhaler No current facility-administered medications for this visit. Review of Systems Constitutional: Negative for chills, diaphoresis, fever, malaise/fatigue and weight loss. HENT: Negative for congestion, ear pain, hearing loss, nosebleeds and sore throat. Eyes: Negative for blurred vision, double vision, pain and redness. Respiratory: Negative for cough, shortness of breath and wheezing. Cardiovascular: Negative for chest pain, palpitations, claudication and leg swelling. Gastrointestinal: Negative for abdominal pain, blood in stool, constipation, diarrhea, nausea and vomiting. Genitourinary: Negative for dysuria, frequency and hematuria. Musculoskeletal: Negative for falls, joint pain and myalgias. Skin: Positive for itching and rash. Neurological: Negative for dizziness, tingling, tremors, focal weakness and headaches. Endo/Heme/Allergies: Negative for polydipsia. Does not bruise/bleed easily. Psychiatric/Behavioral : Negative for depression, substance abuse and suicidal ideas. The patient is not nervous/anxious and does not have insomnia. BP 118/72 Pulse 57 Temp (Src) 97.3 (Left Tympanic) Resp 18 Ht 5' 10 (1.78m) Wt 170 lb 4.8 oz (77.2kg) SpO2 98% LMP 03/17/2019 BMI 24.44 kg/(m2). Physical Exam Constitutional: She is oriented to person, place, and time and well-developed, well-nourished, and in no distress. No distress. HENT: Head: Normocephalic and atraumatic. Right Ear: Hearing, tympanic membrane, external ear and ear canal normal. Left Ear: Hearing, tympanic membrane, external ear and ear canal normal. Nose: Nose normal. Mouth/Throat: Oropharynx is clear and moist. Normal dentition. No oropharyngeal exudate. Eyes: Pupils are equal, round, and reactive to light. Conjunctivae and EOM are normal. Right eye exhibits no discharge. Left eye exhibits no discharge. No scleral icterus. Neck: Normal range of motion. Neck supple. Carotid bruit is not present. No tracheal deviation present. No thyromegaly present. Cardiovascular: Normal rate, regular rhythm, normal heart sounds and intact distal pulses. Exam reveals no gallop and no friction rub. No murmur heard. Pulmonary/Chest: Effort normal and breath sounds normal. No respiratory distress. She has no wheezes. She has no rales. Abdominal: Soft. Bowel sounds are normal. She exhibits no distension and no mass. There is no tenderness. There is no guarding. Musculoskeletal: Normal range of motion. She exhibits no edema or tenderness. Lymphadenopathy: She has no cervical adenopathy. Right: No supraclavicular adenopathy present. Left: No supraclavicular adenopathy present. Neurological: She is alert and oriented to person, place, and time. She has normal reflexes. Gait normal. Skin: Skin is warm and dry. No rash noted. She is not diaphoretic. No erythema. Psychiatric: Mood, memory, affect and judgment normal. Vitals reviewed. New medication(s) prescribed today: None. Counseling completed in adopting health behaviors such as avoiding excessive alcohol use, avoid tobacco use, improve nutrition, and engage in physical activities. Discussed female health maintenance guidelines per standard protocol. Copy of written care plan, clinical summary, treatment plan, new medications, goals, and self management requirements were given to patient. ASSESSMENT/PLAN: 1. Encounter for general adult medical examination with abnormal findings - ICD9: V70.0, ICD10: Z00.01 (primary diagnosis) - Encouraged monthly Breast Self Exam - Recommended regular aerobic exercise. - Vaccination(s) recommended today of Tdap - Follow up for annual exam in one year. - TDAP VACCINE AGE 7+ IM 2. Graves disease - ICD9: 242.00, ICD10: E05.00 Continue methimazole, follows with color television console monitor, next visit May 2019 3. Celiac disease - ICD9: 579.0, ICD10: K90.0 Stable, continue gluten free diet 4. Need for Tdap vaccination - ICD9: V06.1, ICD10: Z23 - TDAP VACCINE AGE 7+ IM DO Renu Priest [facility] CNOVon 03-07-2019 CNOV Office Visit (ENAGST ) RITIKA VEGA ([id number]) 1985 F Date Time Provider Department 03/07/19 9:30 AM JOY GALEANO During your visit today, we recorded the following information about you: Pulse Blood pressure Weight Height 81/minute 106/70 74.8 kg 1.803 m Joy Galeano MD 03/08/2019 8:11 AM Addendum . [facility] General Endocrinology - [place] [address], [address] [place], [place] [id number] [place] [address] Endocrinology - [address], [address] [place], [place] [address] Patient's name: Ritika Vega Patient's date of : 1985 Date of encounter: 03/07/2019 History of present illness: Ritika Vega is a 33 year old female who presents for follow up of an endocrinology issue. Previous history: 05/2015: TSH 0.600 (0.358-3.740 uIU/mL), at [facility] lab, 07/2018: Around this time she started feeling some malaise. 10/2018: She saw her Primary Care Physician for palpitations. 10/13/2018: TSH <0.005 (0.358-3.740 uIU/mL), free T4 2.19 (0.76-1.46 ng/dL), Liver function tests and neutrophils are both ok. 10/18/2018: TSH <0.005 (0.358-3.740 uIU/mL), free T4 2.20 (0.76-1.46 ng/dL), Total T3 2.4 (0.6-1.8 ng/mL), 10/18/2018: Thyroid Peroxidase Antibodies 1563.3 (0.0-60.0 IU/mL), 10/25/2018: Initial consultation with me. At time of visit, the Thyroid Stimulating Immunoglobulin (TSI) was pending. 10/2018: Thyroid Stimulating Immunoglobulin (TSI) 481 (<150 %), TBI 13.9 (<1.0 U/L), 11/04/2018: I started her on methimazole 5 mg daily. 11/24/2018: Liver function tests ok, this was a lab appointment. 11/2018: TSH <0.005 (0.358-3.740 uIU/mL), free T4 1.70 (0.76-1.46 ng/dL), free T3 4.5 (2.2-4.0 pg/mL), on Methimazole 5 mg daily. Liver function tests and neutrophils are ok. off biotin for this test. Interval history: The patient now returns for re-evaluation and follow-up. The above history was re-confirmed. When asked how she feels overall, she responded pretty good. Feels like she is gaining weight. While trying to cut weight, training. 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 No dark urine. No sore throats, fevers or chills. No dysphagia. No new or existing hoarseness. No anterior neck compression / feeling of external pressure. Denies clearing of throat, or cough. Biotin: Now off all biotin. Last dose, was few month. Celiac Disease: History of celiac disease (biopsy confirmed). Gluten free diet. Vitamin B12 Deficiency: History of B12 deficiency. 10/2018: Vitamin B-12 1058 (193-986 pg/mL), Allergies, medications, medical and surgical history, family history and social history, and problem list reviewed. Preferred pharmacy for the medications I prescribe (or may prescribe) is: [facility] Review of Systems Constitutional: Negative for chills, diaphoresis, fever, malaise/fatigue and weight loss. HENT: Positive for congestion (On treatment). Negative for sore throat. Eyes: Negative for double vision and pain. Respiratory: Negative for cough, shortness of breath and wheezing. Cardiovascular: Positive for palpitations (Now just every once in a while). Negative for chest pain and leg swelling. Gastrointestinal: Negative for abdominal pain, blood in stool, constipation, diarrhea, heartburn, nausea and vomiting. Genitourinary: Negative for flank pain, frequency, hematuria and urgency. Musculoskeletal: Negative for back pain, joint pain and myalgias. Skin: Negative for itching and rash. Neurological: Positive for headaches (with sinus issues). Negative for dizziness, tingling, tremors and weakness. Endo/Heme/Allergies: Negative for polydipsia. Does not bruise/bleed easily. Psychiatric/Behavioral : Negative for depression, memory loss and suicidal ideas. The patient is not nervous/anxious and does not have insomnia. PAST MEDICAL HISTORY Diagnosis Date - B12 deficiency - Celiac disease Biopsy proven - Eating disorder history of age [age]. purging then restricting/ compulsive exercising - Graves disease 10/2018 PAST SURGICAL HISTORY Procedure Laterality Date - EGD Upper endoscoscopy: Dr. PatricioZqqj-Xfild-Diyiuzx Celiac Disease - ELBOW SURGERY HX 2008 left - ELBOW SURGERY HX Left 10/2016 - KNEE SURGERY HX 2007 Left x 2 - LASIK 2013 - ORAL SURGERY PROCEDURE 2006 - TONSILLECTOMY AND ADENOIDECTOMY HX FAMILY HISTORY Problem Relation Age of Onset - Breast Cancer Paternal Grandmother - Skin Cancer Paternal Grandmother - Diabetes Maternal Grandmother - Coronary Artery Disease Maternal Grandmother - GI Maternal Grandmother Diverticulitis - Hyperlipidemia Mother - Hypertension Mother - Fibromyalgia Mother - Blood Disease Mother MTHFR - Hypertension Father - GI Brother Non-celiac gluten sensitivity - Coronary Artery Disease Maternal Grandfather - Coronary Artery Disease Paternal Grandfather - Diabetes Paternal Aunt - other (Sarcoidosis) Maternal Aunt Social History Socioeconomic History Marital status: Single Spouse name: Not on file Number of children: Not on file Years of education: Not on file Highest education level: Not on file Social Needs Financial resource strain: Not on file Food insecurity - worry: Not on file Food insecurity - inability: Not on file Transportation needs - medical: Not on file Transportation needs - non-medical: Not on file Occupational History 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 Occupational Exposure: Not Asked Hobby Hazards: Not Asked Sleep Concern: Not Asked Stress Concern: Not Asked Weight Concern: Not Asked Special Diet: Yes Gluten free Back Care: Not Asked Exercise: Yes 5 or more days/ week Bike Helmet: Not Asked Seat Belt: Not Asked Self-Exams: Not Asked Social History Narrative Not on file Current Outpatient Medications: triamcinolone acetonide (NASACORT) 55 mcg nasal inhaler Disp: Rfl: amoxicillin-clavulanic acid (AUGMENTIN) 875-125 mg per tablet Take 1 tablet by mouth every 12 hours for 10 days. Disp: 20 tablet Rfl: 0 metHIMazole (TAPAZOLE) 5 mg tablet Take 1 tablet by mouth once daily. Disp: 90 tablet Rfl: 1 Norethindrone Acet-Ethinyl Est (11/27, ,) 1-20 mg-mcg per tablet Take 1 tablet by mouth once daily. Disp: Rfl: SULFACLEANSE 8-4 8-4 % susp Apply 1 application to affected area once daily. Disp: Rfl: OMEGA-3 FATTY ACIDS/FISH OIL (OMEGA 3 FISH OIL ORAL) Take 1,200 mg by mouth once daily. Disp: Rfl: biotin 5 mg tab Take 5 mg by mouth once daily. Disp: Rfl: cyanocobalamin (VITAMIN B-12) 1,000 mcg tab Take 1,000 mcg by mouth once daily. Disp: Rfl: Cetirizine (ZYRTEC) 10 mg cap Take by mouth as needed. Disp: Rfl: No current facility-administered medications for this visit. BP 106/70 Pulse 81 Ht 5' 11 (1.80m) Wt 165 lb (74.8kg) LMP 02/27/2019 BMI 23.02 kg/(m2). Last 5 Encounter Wt Readings: Date: Wt: 03/07/2019 74.8 kg (165 lb) 02/28/2019 74.6 kg (164 lb 8 oz) 12/06/2018 73.1 kg (161 lb 3.2 oz) 10/25/2018 71.3 kg (157 lb 3.2 oz) 10/13/2018 70.8 kg (156 lb) Physical Exam Constitutional: She is oriented to person, place, and time and well-developed, well-nourished, and in no distress. She appears not jaundiced. Non-toxic appearance. She does not have a sickly appearance. HENT: Head: Normocephalic and atraumatic. Eyes: EOM are normal. No scleral icterus. Neck: No thyroid mass and no thyromegaly present. No palpable thyroid nodules or masses. Non-tender anterior neck. Estimated size of thyroid gland 20 grams. Cardiovascular: Normal rate and regular rhythm. No murmur heard. Pulmonary/Chest: Effort normal and breath sounds normal. No respiratory distress. She has no wheezes. She has no rhonchi. She has no rales. Abdominal: Soft. There is no hepatomegaly. There is no tenderness. There is no guarding and no CVA tenderness. Non-toxic abdominal examination. Musculoskeletal: She exhibits no edema. Lymphadenopathy: Head (right side): No submandibular, no tonsillar and no preauricular adenopathy present. Head (left side): No submandibular, no tonsillar and no preauricular adenopathy present. She has no cervical adenopathy. Neurological: She is alert and oriented to person, place, and time. She has intact cranial nerves. She displays no tremor. Reflex Scores: Patellar reflexes are 1+ on the right side and 1+ on the left side. No hand tremor Skin: Skin is warm. She is not diaphoretic. Psychiatric: Mood, affect and judgment normal. Vitals reviewed. Assessment and Plans: 1. Graves disease On methimazole 5 mg daily. Euthyroid examination. I reviewed the risk of anti-thyroid meds, including, but not limited to, agranulocytosis, hepatotoxicity, arthralgias, and rash. I will check her thyroid hormone levels. Once those are reviewed, then I will adjust the dose(s) as needed. Will send an electronic prescription to the local pharmacy,in 90 day supplies, once labs reviewed. Preferred pharmacy for the medications I prescribe (or may prescribe) is: [facility]. - TSH BLD; Future - T4 FREE/FREE THYROX; Future - T3 FREE BLD; Future - WBC W DIFF; Future - HEPATIC FUNCTION PNL; Future 2. Thyrotoxicosis without thyroid storm, unspecified thyrotoxicosis type Treat #1 3. Autoimmune disease (HCC) 4. Celiac disease Gluten free diet 5. Taking medication for chronic disease Methimazole see #1 Joy Galeano MD Addendum to note: March 08, 201902/2019: TSH <0.005 (0.358-3.740 uIU/mL), free T4 1.32 (0.76-1.46 ng/dL), free T3 3.9 (2.2-4.0 pg/mL), on Methimazole 5 mg daily. Liver function tests and neutrophils are ok. I increased her dose to 7.5 mg daily. An electronic prescription was sent to the mail-order pharmacy. Can do alternate 1 pill on odd days and two pills on even days if she wants. I will send her a message, in the [facility] portal. Joy Galeano MD 03/08/2019 08:11:44 Joy Galeano MD 03/07/2019 9:51 AM Signed Methimazole (Tapazole) or propylthiouracil (PTU) notes: You are on (or may be prescribed) methimazole (Tapazole) or propylthiouracil (PTU) for your over-active thyroid gland. These drug are considered Anti-thyroid drugs, as they are prescribed to slow-down the thyroid gland. Remember to call me for: Abdominal pains, especially right upper quadrant of the abdomen. Nausea, vomiting. Dark (tea-colored) urine. These could be signs of liver-toxicity. Also call me if: Sore throats. Fevers. These could be signs that the methimazole or propylthiouracil (PTU) is affecting the white blood cells. Note, both of the above are very rare, but contact me if those symptoms occur. Referring Provider: JOY GALEANO [[id number]] Allergies As of Date: 03/07/2019 (No Known Allergies) Date Reviewed: 03/07/2019 Reviewed by: Joy Galeano - Fully Assessed Reason for Visit: Thyroid Problem [110] Follow Up [171] Primary Visit Diagnosis:Graves disease [E05.00] Other Visit Diagnoses:Thyrotoxicos is without thyroid storm, unspecified thyrotoxicosis type [E05.90] Autoimmune disease (HCC) [D89.89] Celiac disease [K90.0] Taking medication for chronic disease [R69] Order(s):TSH BLD [SQTSH] Order #: [id number] FUTURE T4 FREE/FREE THYROX [SQFT4] Order #: [id number] FUTURE T3 FREE BLD [SQFREET3] Order #: [id number] FUTURE WBC W DIFF [6586295] Order #: [id number] FUTURE HEPATIC FUNCTION PNL [SQHFP] Order #: [id number] FUTURE Prescriptions as of 03/07/2019 Sig: TRIAMCINOLONE ACETONIDE 55 MC* AMOXICILLIN 875 MG-POTASSIUM * Take 1 tablet by mouth every * X METHIMAZOLE 5 MG TABLET Take 1 tablet by mouth once d* CYANOCOBALAMIN (VIT B-12) 1,0* Take 1,000 mcg by mouth once * NORETHINDRONE ACETATE 1 MG-ET* Take 1 tablet by mouth once d* SULFACLEANSE 8-4 8 %-4 % TOPI* Apply 1 application to affect* OMEGA 3 FISH OIL ORAL Take 1,200 mg by mouth once d* Problem List As Of Date 03/07/2019 Noted Resolved 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 These drug are considered Anti-thyroid drugs, as they are prescribed to slow-down the thyroid gland. Remember to call me for: Abdominal pains, especially right upper quadrant of the abdomen. Nausea, vomiting. Dark (tea-colored) urine. These could be signs of liver-toxicity. Also call me if: Sore throats. Fevers. These could be signs that the methimazole or propylthiouracil (PTU) is affecting the white blood cells. Note, both of the above are very rare, but contact me if those symptoms occur. Medications Discontinued During This Encounter biotin 5 mg tab 03/07/2019 Class: Historical Med Route: ORAL Sig: Take 5 mg by mouth once daily. Disc: Discontinued by Patient Cetirizine (ZYRTEC) 10 mg cap 03/07/2019 Class: Historical Med Route: ORAL Sig: Take by mouth as needed. Disc: Discontinued by Patient Disposition: Return in about 3 months (around 06/06/2019) for Any time slot. BOV type of appointment.. Follow-up and Disposition History Recorded Encounter Status:Closed by JOY GALEANO MD on 03/07/19 Normal [facility] Free T3on 03-07-2019 Free T3 [Mass/Vol] 3.9 pg/mL Normal 2.2-4.0 [facility] Comment on above: Performed By: #### F T4 #### [place] [id number] Free Thyroxineon 03-07-2019 Free T4 [Mass/Vol] 1.32 ng/dL Normal 0.76-1.46 [facility] Comment on above: Performed By: #### F T4 #### [address] [address] Hepatic Panelon 03-07-2019 ALP [Catalytic activity/Vol] 90 U/L Normal 46-116 [facility] Comment on above: Performed By: #### F T4 #### [facility] [address] [place], [place] [address] Bilirubin [Mass/Vol] 0.15 mg/dL Normal 0.00-0.20 [facility] Comment on above: Performed By: #### F T4 #### [facility] [address] [place], [place] [address] Protein [Mass/Vol] 7.3 g/dL Normal 6.4-8.2 [facility] Comment on above: Performed By: #### F T4 #### [facility] [address] [place], [place] [address] Bilirubin [Mass/Vol] 0.5 mg/dL Normal 0.2-1.0 [facility] Comment on above: Performed By: #### F T4 #### [address] [address] ALT [Catalytic activity/Vol] 50 U/L Normal 12-78 [facility] Comment on above: Performed By: #### F T4 #### [facility] [address] [place], [place] [address] AST [Catalytic activity/Vol] 22 U/L Normal 9-37 [facility] Comment on above: Performed By: #### F T4 #### [facility] [address] [place], [place] [address] Albumin [Mass/Vol] 4.0 g/dL Normal 3.4-5.0 [facility] Comment on above: Performed By: #### F T4 #### [address] [address] PROGRESSon 03-07-2019 PROGRESS HNO ID: [id number] Author: Joy Galeano Service: ? Author Type: Physician Type: Progress Notes Filed: 03/08/2019 8:11 AM Note Text: . [facility] Endocrinology - [place] [address], [address] [place], [place] [id number] [place] [address] General Endocrinology - [address], [address] [place] [id number] Patient's name: Ritika Vega Patient's date of : 1985 Date of encounter: 03/07/2019 History of present illness: Ritika Vega is a 33 year old female who presents for follow up of an endocrinology issue. Previous history: 05/2015: TSH 0.600 (0.358-3.740 uIU/mL), at [facility] lab, 07/2018: Around this time she started feeling some malaise. 10/2018: She saw her Primary Care Physician for palpitations. 10/13/2018: TSH <0.005 (0.358-3.740 uIU/mL), free T4 2.19 (0.76-1.46 ng/dL), Liver function tests and neutrophils are both ok. 10/18/2018: TSH <0.005 (0.358-3.740 uIU/mL), free T4 2.20 (0.76-1.46 ng/dL), Total T3 2.4 (0.6-1.8 ng/mL), 10/18/2018: Thyroid Peroxidase Antibodies 1563.3 (0.0-60.0 IU/mL), 10/25/2018: Initial consultation with me. At time of visit, the Thyroid Stimulating Immunoglobulin (TSI) was pending. 10/2018: Thyroid Stimulating Immunoglobulin (TSI) 481 (<150 %), TBI 13.9 (<1.0 U/L), 11/04/2018: I started her on methimazole 5 mg daily. 11/24/2018: Liver function tests ok, this was a lab appointment. 11/2018: TSH <0.005 (0.358-3.740 uIU/mL), free T4 1.70 (0.76-1.46 ng/dL), free T3 4.5 (2.2-4.0 pg/mL), on Methimazole 5 mg daily. Liver function tests and neutrophils are ok. off biotin for this test. Interval history: The patient now returns for re-evaluation and follow-up. The above history was re-confirmed. When asked how she feels overall, she responded pretty good. Feels like she is gaining weight. While trying to cut weight, training. 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 No dark urine. No sore throats, fevers or chills. No dysphagia. No new or existing hoarseness. No anterior neck compression / feeling of external pressure. Denies clearing of throat, or cough. Biotin: Now off all biotin. Last dose, was few month. Celiac Disease: History of celiac disease (biopsy confirmed). Gluten free diet. Vitamin B12 Deficiency: History of B12 deficiency. 10/2018: Vitamin B-12 1058 (193-986 pg/mL), Allergies, medications, medical and surgical history, family history and social history, and problem list reviewed. Preferred pharmacy for the medications I prescribe (or may prescribe) is: [facility] Review of Systems Constitutional: Negative for chills, diaphoresis, fever, malaise/fatigue and weight loss. HENT: Positive for congestion (On treatment). Negative for sore throat. Eyes: Negative for double vision and pain. Respiratory: Negative for cough, shortness of breath and wheezing. Cardiovascular: Positive for palpitations (Now just every once in a while). Negative for chest pain and leg swelling. Gastrointestinal: Negative for abdominal pain, blood in stool, constipation, diarrhea, heartburn, nausea and vomiting. Genitourinary: Negative for flank pain, frequency, hematuria and urgency. Musculoskeletal: Negative for back pain, joint pain and myalgias. Skin: Negative for itching and rash. Neurological: Positive for headaches (with sinus issues). Negative for dizziness, tingling, tremors and weakness. Endo/Heme/Allergies: Negative for polydipsia. Does not bruise/bleed easily. Psychiatric/Behavioral : Negative for depression, memory loss and suicidal ideas. The patient is not nervous/anxious and does not have insomnia. PAST MEDICAL HISTORY Diagnosis Date - B12 deficiency - Celiac disease Biopsy proven - Eating disorder history of age [age]. purging then restricting/ compulsive exercising - Graves disease 10/2018 PAST SURGICAL HISTORY Procedure Laterality Date - EGD Upper endoscoscopy: Dr. GriffithGsfo-Mttqm-Rpwlanl Celiac Disease - ELBOW SURGERY HX 2007 left - ELBOW SURGERY HX Left 10/2016 - KNEE SURGERY HX 2007 Left x 2 - LASIK 2013 - ORAL SURGERY PROCEDURE 2006 - TONSILLECTOMY AND ADENOIDECTOMY HX FAMILY HISTORY Problem Relation Age of Onset - Breast Cancer Paternal Grandmother - Skin Cancer Paternal Grandmother - Diabetes Maternal Grandmother - Coronary Artery Disease Maternal Grandmother - GI Maternal Grandmother Diverticulitis - Hyperlipidemia Mother - Hypertension Mother - Fibromyalgia Mother - Blood Disease Mother MTHFR - Hypertension Father - GI Brother Non-celiac gluten sensitivity - Coronary Artery Disease Maternal Grandfather - Coronary Artery Disease Paternal Grandfather - Diabetes Paternal Aunt - other (Sarcoidosis) Maternal Aunt Social History Socioeconomic History Marital status: Single Spouse name: Not on file Number of children: Not on file Years of education: Not on file Highest education level: Not on file Social Needs Financial resource strain: Not on file Food insecurity - worry: Not on file Food insecurity - inability: Not on file Transportation needs - medical: Not on file Transportation needs - non-medical: Not on file Occupational History 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 Occupational Exposure: Not Asked Hobby Hazards: Not Asked Sleep Concern: Not Asked Stress Concern: Not Asked Weight Concern: Not Asked Special Diet: Yes Gluten free Back Care: Not Asked Exercise: Yes 5 or more days/ week Bike Helmet: Not Asked Seat Belt: Not Asked Self-Exams: Not Asked Social History Narrative Not on file Current Outpatient Medications: triamcinolone acetonide (NASACORT) 55 mcg nasal inhaler Disp: Rfl: amoxicillin-clavulanic acid (AUGMENTIN) 875-125 mg per tablet Take 1 tablet by mouth every 12 hours for 10 days. Disp: 20 tablet Rfl: 0 metHIMazole (TAPAZOLE) 5 mg tablet Take 1 tablet by mouth once daily. Disp: 90 tablet Rfl: 1 Norethindrone Acet-Ethinyl Est (JUNE,) 1-20 mg-mcg per tablet Take 1 tablet by mouth once daily. Disp: Rfl: SULFACLEANSE 8-4 8-4 % susp Apply 1 application to affected area once daily. Disp: Rfl: OMEGA-3 FATTY ACIDS/FISH OIL (OMEGA 3 FISH OIL ORAL) Take 1,200 mg by mouth once daily. Disp: Rfl: biotin 5 mg tab Take 5 mg by mouth once daily. Disp: Rfl: cyanocobalamin (VITAMIN B-12) 1,000 mcg tab Take 1,000 mcg by mouth once daily. Disp: Rfl: Cetirizine (ZYRTEC) 10 mg cap Take by mouth as needed. Disp: Rfl: No current facility-administered medications for this visit. BP 106/70 Pulse 81 Ht 5' 11 (1.80m) Wt 165 lb (74.8kg) LMP 02/27/2019 BMI 23.02 kg/(m2). Last 5 Encounter Wt Readings: Date: Wt: 03/07/2019 74.8 kg (165 lb) 02/28/2019 74.6 kg (164 lb 8 oz) 12/06/2018 73.1 kg (161 lb 3.2 oz) 10/25/2018 71.3 kg (157 lb 3.2 oz) 10/13/2018 70.8 kg (156 lb) Physical Exam Constitutional: She is oriented to person, place, and time and well-developed, well-nourished, and in no distress. She appears not jaundiced. Non-toxic appearance. She does not have a sickly appearance. HENT: Head: Normocephalic and atraumatic. Eyes: EOM are normal. No scleral icterus. Neck: No thyroid mass and no thyromegaly present. No palpable thyroid nodules or masses. Non-tender anterior neck. Estimated size of thyroid gland 20 grams. Cardiovascular: Normal rate and regular rhythm. No murmur heard. Pulmonary/Chest: Effort normal and breath sounds normal. No respiratory distress. She has no wheezes. She has no rhonchi. She has no rales. Abdominal: Soft. There is no hepatomegaly. There is no tenderness. There is no guarding and no CVA tenderness. Non-toxic abdominal examination. Musculoskeletal: She exhibits no edema. Lymphadenopathy: Head (right side): No submandibular, no tonsillar and no preauricular adenopathy present. Head (left side): No submandibular, no tonsillar and no preauricular adenopathy present. She has no cervical adenopathy. Neurological: She is alert and oriented to person, place, and time. She has intact cranial nerves. She displays no tremor. Reflex Scores: Patellar reflexes are 1+ on the right side and 1+ on the left side. No hand tremor Skin: Skin is warm. She is not diaphoretic. Psychiatric: Mood, affect and judgment normal. Vitals reviewed. Assessment and Plans: 1. Graves disease On methimazole 5 mg daily. Euthyroid examination. I reviewed the risk of anti-thyroid meds, including, but not limited to, agranulocytosis, hepatotoxicity, arthralgias, and rash. I will check her thyroid hormone levels. Once those are reviewed, then I will adjust the dose(s) as needed. Will send an electronic prescription to the local pharmacy,in 90 day supplies, once labs reviewed. Preferred pharmacy for the medications I prescribe (or may prescribe) is: [facility]. - TSH BLD; Future - T4 FREE/FREE THYROX; Future - T3 FREE BLD; Future - WBC W DIFF; Future - HEPATIC FUNCTION PNL; Future 2. Thyrotoxicosis without thyroid storm, unspecified thyrotoxicosis type Treat #1 3. Autoimmune disease (HCC) 4. Celiac disease Gluten free diet 5. Taking medication for chronic disease Methimazole see #1 Joy Galeano MD Addendum to note: March 08, 201902/2019: TSH <0.005 (0.358-3.740 uIU/mL), free T4 1.32 (0.76-1.46 ng/dL), free T3 3.9 (2.2-4.0 pg/mL), on Methimazole 5 mg daily. Liver function tests and neutrophils are ok. I increased her dose to 7.5 mg daily. An electronic prescription was sent to the mail-order pharmacy. Can do alternate 1 pill on odd days and two pills on even days if she wants. I will send her a message, in the [employer] portal. Joy Galeano MD 03/08/2019 08:11:44 Normal [facility] TSH, 3rd generationon 2018 TSH, 3rd generation <0.005 Low 0.358-3.740 [facility] Comment on above: Performed By: #### F T4 #### [facility] [address] [place], [place] [address] WBC with Differentialon 02-08 Abs Immature Grans 0.03 thou/cmm Normal 0.00-0.05 [facility] Comment on above: Performed By: #### M AG #### [facility] [address] [place] [address] Abs Neut (ANC) 4.48 thou/cmm Normal 1.56-6.13 [facility] Comment on above: Performed By: #### M AG #### [facility] [address] [place] [address] Abs. Baso 0.04 thou/cmm Normal 0.01-0.08 [facility] Comment on above: Performed By: #### M AG #### [facility] [address] [place] [address] Abs. [place] 0.42 thou/cmm Normal 0.27-0.70 [facility] Comment on above: Performed By: #### M AG #### [place] [address] Basophils/100 WBC (Bld) 0.6 % Normal [facility] Comment on above: Performed By: #### M AG #### [place] [address] Eosinophils (Bld) [#/Vol] 0.04 thou/cmm Normal 0.00-0.31 [facility] Comment on above: Performed By: #### M AG #### [place] [address] Eosinophils/100 WBC (Bld) 0.6 % Normal [facility] Comment on above: Performed By: #### M AG #### [place] [address] Immature Grans 0.40 % Normal [facility] Comment on above: Performed By: #### M AG #### [place] [address] Lymphocytes (Bld) [#/Vol] 1.67 thou/cmm Normal 1.18-3.74 [facility] Comment on above: Performed By: #### M AG #### [place] [address] Lymphocytes/100 WBC (Bld) 25.0 % Normal [facility] Comment on above: Performed By: #### M AG #### [facility] [address] [place], [place] [address] Monocytes/100 WBC (Bld) 6.3 % Normal [facility] Comment on above: Performed By: #### M AG #### [facility] [address] [place], [place] [address] Seg Neutrophil 67.1 % Normal [facility] Comment on above: Performed By: #### M AG #### [facility] [address] [place], [place] [address] WBC (Bld) [#/Vol] 6.67 thou/cmm Normal 3.98-10.04 [facility] Comment on above: Performed By: #### M AG #### [facility] [address] [place], [place] [address] PROGRESSon 03-03-2019 PROGRESS HNO ID: [id number] Author: Joy Galeano Service: ? Author Type: Physician Type: Progress Notes Filed: 03/03/2019 1:09 PM Note Text: Note: The following is an abstracted note of the either a previous or a new History of Present Illness. This is in prep for an up-coming appointment. This is not a [id number] encounter. Previous history as follows: Previous history: 05/2015: TSH 0.600 (0.358-3.740 uIU/mL), at [facility] lab, 07/2018: Around this time she started feeling some malaise. 10/2018: She saw her Primary Care Physician for palpitations. 10/13/2018: TSH <0.005 (0.358-3.740 uIU/mL), free T4 2.19 (0.76-1.46 ng/dL), Liver function tests and neutrophils are both ok. 10/18/2018: TSH <0.005 (0.358-3.740 uIU/mL), free T4 2.20 (0.76-1.46 ng/dL), Total T3 2.4 (0.6-1.8 ng/mL), 10/18/2018: Thyroid Peroxidase Antibodies 1563.3 (0.0-60.0 IU/mL), 10/25/2018: Initial consultation with me. At time of visit, the Thyroid Stimulating Immunoglobulin (TSI) was pending. 10/2018: Thyroid Stimulating Immunoglobulin (TSI) 481 (<150 %), TBI 13.9 (<1.0 U/L), 11/04/2018: I started her on methimazole 5 mg daily. 11/24/2018: Liver function tests ok, this was a lab appointment. 11/2018: TSH <0.005 (0.358-3.740 uIU/mL), free T4 1.70 (0.76-1.46 ng/dL), free T3 4.5 (2.2-4.0 pg/mL), on Methimazole 5 mg daily. Liver function tests and neutrophils are ok. off biotin for this test. Biotin: Last dose, was ____ Celiac Disease: History of celiac disease (biopsy confirmed). Gluten free diet. Vitamin B12 Deficiency: History of B12 deficiency. 10/2018: Vitamin B-12 1058 (193-986 pg/mL), Normal [facility] CNOVon 02-28-2019 CNOV Office Visit (AGINTB A) GARYRITIKA ([id number]) 1985 F Date Time Provider Department 02/28/19 11:20 AM MIO LITTLE During your visit today, we recorded the following information about you: Temperature Pulse Respiration Blood pressure 97 degrees 69/minute 16/minute 112/70 Weight Height Last Period 74.6 kg 1.829 m 02/27/19 Mio Little MD 02/28/2019 12:07 PM Signed Ritika Vega is a 33 year old female who presents with complaint of URI, sinus infection, nasal congestion, rhinorrhea, facial pain/pressure with pain into teeth and hoarse voice for 2 weeks. Associated symptoms include facial pain/pressure with pain into teeth and post nasal drip. She denies fever, trouble swallowing, nausea, vomiting and diarrhea. Treatments tried include OTC cold medicine with minor relief of symptoms. Past Medical, Surgical, Family and Social Histories reviewed and updated today in the History tab of [facility]. Current Medications and allergies reviewed. PAST MEDICAL HISTORY Diagnosis Date - B12 deficiency - Celiac disease Biopsy proven - Eating disorder history of age [age]. purging then restricting/ compulsive exercising - Graves disease 10/2018 PAST SURGICAL HISTORY Procedure Laterality Date - EGD Upper endoscoscopy: Dr. GriffithGxyh-Txnbo-Enfixkv Celiac Disease - ELBOW SURGERY HX 2007 left - ELBOW SURGERY HX Left 10/2016 - KNEE SURGERY HX 2007 Left x 2 - LASIK 2012 - ORAL SURGERY PROCEDURE 2006 - TONSILLECTOMY AND ADENOIDECTOMY HX ACTIVE PROBLEM LIST Arthritis of Left Elbow Graves Disease ALLERGIES: Patient has no known allergies. Current Outpatient Medications: metHIMazole (TAPAZOLE) 5 mg tablet Take 1 tablet by mouth once daily. cyanocobalamin (VITAMIN B-12) 1,000 mcg tab Take 1,000 mcg by mouth once daily. Norethindrone Acet-Ethinyl Est (11/27, ,) 1-20 mg-mcg per tablet Take 1 tablet by mouth once daily. SULFACLEANSE 8-4 8-4 % susp Apply 1 application to affected area once daily. OMEGA-3 FATTY ACIDS/FISH OIL (OMEGA 3 FISH OIL ORAL) Take 1,200 mg by mouth once daily. amoxicillin-clavulanic acid (AUGMENTIN) 875-125 mg per tablet Take 1 tablet by mouth every 12 hours for 10 days. biotin 5 mg tab Take 5 mg by mouth once daily. Cetirizine (ZYRTEC) 10 mg cap Take by mouth as needed. No current facility-administered medications for this visit. FAMILY HISTORY Problem Relation Age of Onset - Breast Cancer Paternal Grandmother - Skin Cancer Paternal Grandmother - Diabetes Maternal Grandmother - Coronary Artery Disease Maternal Grandmother - GI Maternal Grandmother Diverticulitis - Hyperlipidemia Mother - Hypertension Mother - Fibromyalgia Mother - Blood Disease Mother MTHFR - Hypertension Father - GI Brother Non-celiac gluten sensitivity - Coronary Artery Disease Maternal Grandfather - Coronary Artery Disease Paternal Grandfather - Diabetes Paternal Aunt - other (Sarcoidosis) Maternal Aunt Social History Socioeconomic History Marital status: Single Spouse name: Not on file Number of children: Not on file Years of education: Not on file Highest education level: Not on file Social Needs Financial resource strain: Not on file Food insecurity - worry: Not on file Food insecurity - inability: Not on file Transportation needs - medical: Not on file Transportation needs - non-medical: Not on file Occupational History 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 Occupational Exposure: Not Asked Hobby Hazards: Not Asked Sleep Concern: Not Asked Stress Concern: Not Asked Weight Concern: Not Asked Special Diet: Yes Gluten free Back Care: Not Asked Exercise: Yes 5 or more days/ week Bike Helmet: Not Asked Seat Belt: Not Asked Self-Exams: Not Asked Social History Narrative Not on file REVIEW OF SYSTEMS GENERAL: Fatigue HEENT: Negative for frequent or significant headaches, No changes in hearing or vision, no nose bleeds or other nasal problems RESPIRATORY: See HPI CARDIOVASCULAR: Negative for chest pain, leg swelling, hypertension, CHF or palpitations GI: No nausea, vomiting, or diarrhea PHYSICAL EXAM: BP 112/70 (BP Site: Left Arm, BP Position: Sitting, BP Cuff Size: Regular Adult) Pulse 69 Temp 36.1 ?C (97 ?F) Resp 16 Ht 182.9 cm (6') Wt 74.6 kg (164 lb 8 oz) LMP 02/27/2019 SpO2 99% BMI 22.31 kg/m? General Appearance: Well appearing, alert, in no acute distress, well-hydrated, well nourished.. Skin: Skin color, texture, turgor normal, no suspicious rashes or lesions. Head: Facial tenderness. Ears: External ears normal, canals clear, clear fluid noted behind tympanic membrane.. Nose/Sinuses: Nares normal, septum midline, mucosa normal, no drainage or sinus tenderness. Oropharynx: Lips, mucosa, and tongue normal, teeth and gums normal, oropharynx normal. Lungs: lungs clear to auscultation. No wheezing, rhonchi, rales. Heart: RRR without murmur, gallop, or rubs. No ectopy. Assessment/Plan Acute Sinusitis - Will begin treatment with as per antibiotic as written, see orders - The patient should also be given warm salt water gargles, throat lozenges and/or OTC throat spray as needed and nasal saline gtts and suction prn for the first 5-7 days of treatment. - Supportive care with plenty of fluids, rest, and analgesia prn. - Follow up if symptoms persist or worsen. Mio Little MD Referring Provider: SELF [200] Allergies As of Date: 02/28/2019 (No Known Allergies) Date Reviewed: 02/28/2019 Reviewed by: Francisco J ([facility]) Andrés - Fully Assessed Reason for Visit: URI [115] Cmt: symptoms for 2 weeks. Drainage and coughing along with head pressure and right ear is clogged. Primary Visit Diagnosis:Acute non-recurrent sinusitis, unspecified location [J01.90] Other Visit Diagnosis:Post-nasal drainage [R09.82] Order(s):amoxicillin-c lavulanic acid (AUGMENTIN) 875-125 mg per tabletTake 1 tablet by mouth every 12 hours for 10 days.Disp: 20 tabletRfl: 0 Prescriptions as of 02/28/2019 Sig: METHIMAZOLE 5 MG TABLET Take 1 tablet by mouth once d* CYANOCOBALAMIN (VIT B-12) 1,0* Take 1,000 mcg by mouth once * NORETHINDRONE ACETATE 1 MG-ET* Take 1 tablet by mouth once d* SULFACLEANSE 8-4 8 %-4 % TOPI* Apply 1 application to affect* OMEGA 3 FISH OIL ORAL Take 1,200 mg by mouth once d* AMOXICILLIN 875 MG-POTASSIUM * Take 1 tablet by mouth every * BIOTIN 5 MG TABLET Take 5 mg by mouth once daily. CETIRIZINE 10 MG CAPSULE Take by mouth as needed. 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 Disposition: Return if symptoms worsen or fail to improve, for as scheduled . Follow-up and Disposition History Recorded Encounter Status:Closed by MIO LITTLE on 02/28/19 [facility] PROGRESSon 02-28-2019 PROGRESS HNO ID: [id number] Author: Mio Little Service: ? Author Type: Physician Type: Progress Notes Filed: 02/28/2019 12:07 PM Note Text: Ritika Vega is a 33 year old female who presents with complaint of URI, sinus infection, nasal congestion, rhinorrhea, facial pain/pressure with pain into teeth and hoarse voice for 2 weeks. Associated symptoms include facial pain/pressure with pain into teeth and post nasal drip. She denies fever, trouble swallowing, nausea, vomiting and diarrhea. Treatments tried include OTC cold medicine with minor relief of symptoms. Past Medical, Surgical, Family and Social Histories reviewed and updated today in the History tab of [facility]. Current Medications and allergies reviewed. PAST MEDICAL HISTORY Diagnosis Date - B12 deficiency - Celiac disease Biopsy proven - Eating disorder history of age [age]. purging then restricting/ compulsive exercising - Graves disease 10/2018 PAST SURGICAL HISTORY Procedure Laterality Date - EGD Upper endoscoscopy: Dr. GriffithEmdd-Xfwrg-Jotzhyj Celiac Disease - ELBOW SURGERY HX 2008 left - ELBOW SURGERY HX Left 10/2016 - KNEE SURGERY HX 2007 Left x 2 - LASIK 2013 - ORAL SURGERY PROCEDURE 2006 - TONSILLECTOMY AND ADENOIDECTOMY HX ACTIVE PROBLEM LIST Arthritis of Left Elbow Graves Disease ALLERGIES: Patient has no known allergies. Current Outpatient Medications: metHIMazole (TAPAZOLE) 5 mg tablet Take 1 tablet by mouth once daily. cyanocobalamin (VITAMIN B-12) 1,000 mcg tab Take 1,000 mcg by mouth once daily. Norethindrone Acet-Ethinyl Est (JUNE,) 1-20 mg-mcg per tablet Take 1 tablet by mouth once daily. SULFACLEANSE 8-4 8-4 % susp Apply 1 application to affected area once daily. OMEGA-3 FATTY ACIDS/FISH OIL (OMEGA 3 FISH OIL ORAL) Take 1,200 mg by mouth once daily. amoxicillin-clavulanic acid (AUGMENTIN) 875-125 mg per tablet Take 1 tablet by mouth every 12 hours for 10 days. biotin 5 mg tab Take 5 mg by mouth once daily. Cetirizine (ZYRTEC) 10 mg cap Take by mouth as needed. No current facility-administered medications for this visit. FAMILY HISTORY Problem Relation Age of Onset - Breast Cancer Paternal Grandmother - Skin Cancer Paternal Grandmother - Diabetes Maternal Grandmother - Coronary Artery Disease Maternal Grandmother - GI Maternal Grandmother Diverticulitis - Hyperlipidemia Mother - Hypertension Mother - Fibromyalgia Mother - Blood Disease Mother MTHFR - Hypertension Father - GI Brother Non-celiac gluten sensitivity - Coronary Artery Disease Maternal Grandfather - Coronary Artery Disease Paternal Grandfather - Diabetes Paternal Aunt - other (Sarcoidosis) Maternal Aunt Social History Socioeconomic History Marital status: Single Spouse name: Not on file Number of children: Not on file Years of education: Not on file Highest education level: Not on file Social Needs Financial resource strain: Not on file Food insecurity - worry: Not on file Food insecurity - inability: Not on file Transportation needs - medical: Not on file Transportation needs - non-medical: Not on file Occupational History 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 Occupational Exposure: Not Asked Hobby Hazards: Not Asked Sleep Concern: Not Asked Stress Concern: Not Asked Weight Concern: Not Asked Special Diet: Yes Gluten free Back Care: Not Asked Exercise: Yes 5 or more days/ week Bike Helmet: Not Asked Seat Belt: Not Asked Self-Exams: Not Asked Social History Narrative Not on file REVIEW OF SYSTEMS GENERAL: Fatigue HEENT: Negative for frequent or significant headaches, No changes in hearing or vision, no nose bleeds or other nasal problems RESPIRATORY: See HPI CARDIOVASCULAR: Negative for chest pain, leg swelling, hypertension, CHF or palpitations GI: No nausea, vomiting, or diarrhea PHYSICAL EXAM: BP 112/70 (BP Site: Left Arm, BP Position: Sitting, BP Cuff Size: Regular Adult) Pulse 69 Temp 36.1 ?C (97 ?F) Resp 16 Ht 182.9 cm (6') Wt 74.6 kg (164 lb 8 oz) LMP 02/27/2019 SpO2 99% BMI 22.31 kg/m? General Appearance: Well appearing, alert, in no acute distress, well-hydrated, well nourished.. Skin: Skin color, texture, turgor normal, no suspicious rashes or lesions. Head: Facial tenderness. Ears: External ears normal, canals clear, clear fluid noted behind tympanic membrane.. Nose/Sinuses: Nares normal, septum midline, mucosa normal, no drainage or sinus tenderness. Oropharynx: Lips, mucosa, and tongue normal, teeth and gums normal, oropharynx normal. Lungs: lungs clear to auscultation. No wheezing, rhonchi, rales. Heart: RRR without murmur, gallop, or rubs. No ectopy. Assessment/Plan Acute Sinusitis - Will begin treatment with as per antibiotic as written, see orders - The patient should also be given warm salt water gargles, throat lozenges and/or OTC throat spray as needed and nasal saline gtts and suction prn for the first 5-7 days of treatment. - Supportive care with plenty of fluids, rest, and analgesia prn. - Follow up if symptoms persist or worsen. Mio Little MD Normal [facility] Free T3on 12-08-2018 Free T3 [Mass/Vol] 4.5 pg/mL High 2.2-4.0 [facility] Comment on above: Performed By: #### M AG #### [place] [address] Free Thyroxineon 12-08-2018 Free T4 [Mass/Vol] 1.70 ng/dL High 0.76-1.46 [facility] Comment on above: Performed By: #### M AG #### [facility] [address] [place], [place] [address] Hepatic Panelon 12-08-2018 ALP [Catalytic activity/Vol] 69 U/L Normal 46-116 [facility] Comment on above: Performed By: #### M AG #### [facility] [address] [place], [place] [address] ALT [Catalytic activity/Vol] 43 U/L Normal 12-78 [facility] Comment on above: Performed By: #### M AG #### [address], [place] [address] Bilirubin [Mass/Vol] 0.12 mg/dL Normal 0.00-0.20 [facility] Comment on above: Performed By: #### M AG #### [facility] [address] [place] [address] Protein [Mass/Vol] 6.5 g/dL Normal 6.4-8.2 [facility] Comment on above: Performed By: #### M AG #### [facility] [address] [place] [address] Bilirubin [Mass/Vol] 0.4 mg/dL Normal 0.2-1.0 [facility] Comment on above: Performed By: #### M AG #### [place] [address] AST [Catalytic activity/Vol] 22 U/L Normal 9-37 [facility] Comment on above: Performed By: #### M AG #### [facility] [address] [place] [address] Albumin [Mass/Vol] 3.7 g/dL Normal 3.4-5.0 [facility] Comment on above: Performed By: #### M AG #### [place] [address] TSH, 3rd generationon 2018 TSH, 3rd generation <0.005 Low 0.358-3.740 [facility] Comment on above: Performed By: #### M AG #### [place] [address] WBC with Differentialon 11-10 Abs Immature Grans 0.02 thou/cmm Normal 0.00-0.05 [facility] Comment on above: Performed By: #### M AG #### [facility] [address] [place] [address] Abs. Baso 0.02 thou/cmm Normal 0.01-0.08 [facility] Comment on above: Performed By: #### M AG #### [place] [address] Abs. [place] 0.37 thou/cmm Normal 0.27-0.70 [facility] Comment on above: Performed By: #### M AG #### [facility] [address] [place], [place] [address] Abs. Neut (ANC) 3.38 thou/cmm Normal 1.56-6.13 [facility] Comment on above: Performed By: #### M AG #### [facility] [address] [place], [place] [address] Basophils/100 WBC (Bld) 0.4 % Normal [facility] Comment on above: Performed By: #### M AG #### [facility] [address] [place], [place] [address] Eosinophils (Bld) [#/Vol] 0.03 thou/cmm Normal 0.00-0.31 [facility] Comment on above: Performed By: #### M AG #### [address] [address] Eosinophils/100 WBC (Bld) 0.6 % Normal [facility] Comment on above: Performed By: #### M AG #### [facility] [address] [place], [place] [address] Immature Grans 0.40 % Normal [facility] Comment on above: Performed By: #### M AG #### [facility] [address] [place], [place] [address] Lymphocytes (Bld) [#/Vol] 0.98 thou/cmm Low 1.18-3.74 [facility] Comment on above: Performed By: #### M AG #### [facility] [address] [place], [place] [address] Lymphocytes/100 WBC (Bld) 20.4 % Normal [facility] Comment on above: Performed By: #### M AG #### [facility] [address] [place], [place] [address] Monocytes/100 WBC (Bld) 7.7 % Normal [facility] Comment on above: Performed By: #### M AG #### [address] [address] Seg Neutrophil 70.5 % Normal [facility] Comment on above: Performed By: #### M AG #### [facility] [address] [place], [place] [address] WBC (Bld) [#/Vol] 4.80 thou/cmm Normal 3.98-10.04 [facility] Comment on above: Performed By: #### M AG #### [facility] [address] [place] [id number] CNOVon 12-06-2018 CNOV Office Visit (ENAGST ) RITIKA VEGA ([id number]) 1985 F Date Time Provider Department 12/06/18 9:30 AM JOY GALEANO During your visit today, we recorded the following information about you: Pulse Blood pressure Weight Height 66/minute 107/71 73.1 kg 1.803 m Joy Galeano MD 12/08/2018 5:17 PM Addendum . [facility] [place] [address] [place] [address], [address] Endocrinology - [address], [address] [place], [place] [address] Patient's name: Ritika Vega Patient's date of : 1985 Date of encounter: 12/06/2018 History of present illness: Ritika Vega is a 33 year old female who presents for follow up of an endocrinology issue. Previous history: 05/2015: TSH 0.600 (0.358-3.740 uIU/mL), at [facility] lab, 07/2018: Around this time she started feeling some malaise. 10/2018: She saw her Primary Care Physician for palpitations. 10/13/2018: TSH <0.005 (0.358-3.740 uIU/mL), free T4 2.19 (0.76-1.46 ng/dL), Liver function tests and neutrophils are both ok. 10/18/2018: TSH <0.005 (0.358-3.740 uIU/mL), free T4 2.20 (0.76-1.46 ng/dL), Total T3 2.4 (0.6-1.8 ng/mL), 10/18/2018: Thyroid Peroxidase Antibodies 1563.3 (0.0-60.0 IU/mL), 10/25/2018: Initial consultation with me. At time of visit, the Thyroid Stimulating Immunoglobulin (TSI) was pending. 10/2018: Thyroid Stimulating Immunoglobulin (TSI) 481 (<150 %), TBI 13.9 (<1.0 U/L), 11/04/2018: I started her on methimazole 5 mg daily. 11/24/2018: Liver function tests ok, this was a lab appointment. Interval history: The patient now returns for re-evaluation and follow-up. The above history was re-confirmed. When asked how she feels overall, she responded pretty good, actually. Thinks better overall since methimazole use. Notes more energy. Now on methimazole at 5 mg daily. This was started around 1 month ago, as above. 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 No dark urine. No sore throats, fevers or chills. No dysphagia, no new or existing hoarseness. No anterior neck compression / feeling of external pressure. Denies clearing of throat, or cough. Biotin: she did start this around a week ago. Last dose, was this AM. Celiac Disease: History of celiac disease (biopsy confirmed). Gluten free diet. Vitamin B12 Deficiency: History of B12 deficiency. 10/2018: Vitamin B-12 1058 (193-986 pg/mL), But, currently ok on oral. Allergies, medications, medical and surgical history, family history and social history, and problem list reviewed. Preferred pharmacy for the medications I prescribe (or may prescribe) is: [facility] [place] [address] [id number]- [phone] Portal to [facility] Sites Review of Systems Constitutional: Positive for malaise/fatigue (Improved overall with MMI use). Negative for chills, diaphoresis, fever and weight loss. HENT: Negative for sore throat. Eyes: Negative for pain. Respiratory: Negative for cough, shortness of breath and wheezing. Cardiovascular: Positive for palpitations (Lessened overall). Negative for chest pain and leg swelling. Gastrointestinal: Negative for abdominal pain, blood in stool, constipation, diarrhea, heartburn, nausea and vomiting. Genitourinary: Negative for flank pain, frequency, hematuria and urgency. Musculoskeletal: Negative for back pain, joint pain and myalgias. Skin: Negative for itching and rash. Neurological: Negative for dizziness, tingling, tremors, weakness and headaches. Endo/Heme/Allergies: Negative for polydipsia. Does not bruise/bleed easily. Psychiatric/Behavioral : Negative for depression and memory loss. The patient is not nervous/anxious and does not have insomnia. PAST MEDICAL HISTORY Diagnosis Date - B12 deficiency - Celiac disease Biopsy proven - Eating disorder history of age [age]. purging then restricting/ compulsive exercising PAST SURGICAL HISTORY Procedure Laterality Date - EGD Upper endoscoscopy: Dr. GriffithDiyz-Anggt-Yybvwgk Celiac Disease - ELBOW SURGERY HX 2008 left - ELBOW SURGERY HX Left 10/2016 - KNEE SURGERY HX 2007 Left x 2 - LASIK 2013 - ORAL SURGERY PROCEDURE 2006 - TONSILLECTOMY AND ADENOIDECTOMY HX FAMILY HISTORY Problem Relation Age of Onset - Breast Cancer Paternal Grandmother - Skin Cancer Paternal Grandmother - Diabetes Maternal Grandmother - Coronary Artery Disease Maternal Grandmother - GI Maternal Grandmother Diverticulitis - Hyperlipidemia Mother - Hypertension Mother - Fibromyalgia Mother - Blood Disease Mother MTHFR - Hypertension Father - GI Brother Non-celiac gluten sensitivity - Coronary Artery Disease Maternal Grandfather - Coronary Artery Disease Paternal Grandfather - Diabetes Paternal Aunt - other (Sarcoidosis) Maternal Aunt Social History Marital status: Single Spouse name: Years of education: Number of children: Occupational History 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 Special Diet Yes Comment:Gluten free Exercise Yes Comment:5 or more days/ week Current Outpatient Prescriptions: metHIMazole (TAPAZOLE) 5 mg tablet Take 1 tablet by mouth once daily. Disp: 30 tablet Rfl: 0 metHIMazole (TAPAZOLE) 5 mg tablet Take 1 tablet by mouth once daily. Disp: 90 tablet Rfl: 0 cyanocobalamin (VITAMIN B-12) 1,000 mcg tab Take 1,000 mcg by mouth once daily. Disp: Rfl: Norethindrone Acet-Ethinyl Est (,) 1-20 mg-mcg per tablet Take 1 tablet by mouth once daily. Disp: Rfl: VELTIN gel Apply 1 application to affected area daily at bedtime. Disp: Rfl: HPR PLUS crea Apply 1 application to affected area once daily. Disp: Rfl: SULFACLEANSE 8-4 8-4 % susp Apply 1 application to affected area once daily. Disp: Rfl: ASCORBIC ACID (VITAMIN C ORAL) Take 1 tablet by mouth once daily. Disp: Rfl: OMEGA-3 FATTY ACIDS/FISH OIL (OMEGA 3 FISH OIL ORAL) Take 1,200 mg by mouth once daily. Disp: Rfl: Cetirizine (ZYRTEC) 10 mg cap Take by mouth as needed. Disp: Rfl: CALCIUM CARBONATE/VITAMIN D2 (LIQUID CALCIUM 600-VITAMIN D ORAL) Take by mouth once daily. Disp: Rfl: No current facility-administered medications for this visit. BP 107/71 Pulse 66 Ht 5' 11 (1.80m) Wt 161 lb 3.2 oz (73.1kg) BMI 22.49 kg/(m2). Last 5 Encounter Wt Readings: Date: Wt: 12/06/2018 73.1 kg (161 lb 3.2 oz) 10/25/2018 71.3 kg (157 lb 3.2 oz) 10/13/2018 70.8 kg (156 lb) 12/08/2017 73.6 kg (162 lb 3.2 oz) 02/10/2017 75.3 kg (166 lb) Physical Exam Constitutional: She is oriented to person, place, and time and well-developed, well-nourished, and in no distress. She appears not jaundiced. Non-toxic appearance. She does not have a sickly appearance. HENT: Head: Normocephalic and atraumatic. Eyes: EOM are normal. No scleral icterus. Neck: Thyromegaly present. No thyroid mass present. Spongy gland. No distinct palpable thyroid nodules or masses. Non-tender anterior neck. Estimated size of thyroid gland 25grams. Cardiovascular: Normal rate and regular rhythm. No murmur heard. Pulmonary/Chest: Effort normal and breath sounds normal. No respiratory distress. She has no wheezes. She has no rhonchi. She has no rales. Abdominal: Soft. There is no hepatomegaly. There is no tenderness. There is no guarding and no CVA tenderness. Non-toxic abdominal examination. Musculoskeletal: She exhibits no edema. Lymphadenopathy: Head (right side): No submandibular, no tonsillar and no preauricular adenopathy present. Head (left side): No submandibular, no tonsillar and no preauricular adenopathy present. She has no cervical adenopathy. Neurological: She is alert and oriented to person, place, and time. She has intact cranial nerves. She displays tremor (Very mild hands). Reflex Scores: Patellar reflexes are 0 on the right side and 0 on the left side. Skin: Skin is warm. She is not diaphoretic. Psychiatric: Mood, affect and judgment normal. Vitals reviewed. Assessment and Plans: 1. Graves disease On methimazole 5 mg daily. On this for a month. Feels better, improving. Euthyroid exam overall. I reviewed the risks of anti-thyroid drugs including, but not limited to, agranulocytosis, hepatotoxicity, joint pains and rash. I will check her thyroid hormone levels. Once those are reviewed, then I will adjust the dose(s) as needed. Will send an electronic prescription to the mail-order pharmacy, in 90 day supplies, once labs reviewed. Preferred pharmacy for the medications I prescribe (or may prescribe) is: [facility] [place] [place] [address] - [address]- [phone] Portal to Registered [facility] Sites - TSH BLD; Future - T4 FREE/FREE THYROX; Future - T3 FREE BLD; Future - WBC W DIFF; Future - HEPATIC FUNCTION PNL; Future 2. Thyrotoxicosis without thyroid storm, unspecified thyrotoxicosis type Treat #1 3. Autoimmune disease (HCC) Graves and celiac disease 4. Celiac disease Gluten free diet 5. B12 deficiency On oral B12, levels fine 6. Taking medication for chronic disease Methimazole. Joy Galeano MD Addendum to note: December 06, 2018 She will stay off biotin for at least 48 hours, then get labs at [facility]. Joy Galeano MD 12/06/2018 10:01:39 Addendum to note: December 08, 2018 Data: 11/2018: TSH <0.005 (0.358-3.740 uIU/mL), free T4 1.70 (0.76-1.46 ng/dL), free T3 4.5 (2.2-4.0 pg/mL), on Methimazole 5 mg daily. Liver function tests and neutrophils are ok. off biotin for this test. The current dose of methimazole can be continued, for now. An electronic prescription was sent to the mail-order pharmacy. I will send her a message, in the [employer] portal. Joy Galeano MD 12/08/2018 17:17:20 Joy Galeano MD 12/06/2018 9:46 AM Signed Methimazole (Tapazole) or propylthiouracil (PTU) notes: You are on (or may be prescribed) methimazole (Tapazole) or propylthiouracil (PTU) for your over-active thyroid gland. These drug are considered Anti-thyroid drugs, as they are prescribed to slow-down the thyroid gland. Remember to call me for: Abdominal pains, especially right upper quadrant of the abdomen. Nausea, vomiting. Dark (tea-colored) urine. These could be signs of liver-toxicity. Also call me if: Sore throats. Fevers. These could be signs that the methimazole or propylthiouracil (PTU) is affecting the white blood cells. Note, both of the above are very rare, but contact me if those symptoms occur. Referring Provider: SELF [[id number]] Allergies As of Date: 12/06/2018 (No Known Allergies) Date Reviewed: 12/06/2018 Reviewed by: Joy Galeano - Fully Assessed Reason for Visit: Thyroid Problem [110] Follow Up [171] Primary Visit Diagnosis:Graves disease [E05.00] Other Visit Diagnoses:Thyrotoxicos is without thyroid storm, unspecified thyrotoxicosis type [E05.90] Autoimmune disease (HCC) [D89.89] Celiac disease [K90.0] B12 deficiency [E53.8] Taking medication for chronic disease [R69] Order(s):TSH BLD [SQTSH] Order #: [id number] FUTURE T4 FREE/FREE THYROX [SQFT4] Order #: [id number] FUTURE T3 FREE BLD [SQFREET3] Order #: [id number] FUTURE WBC W DIFF [8137220] Order #: [id number] FUTURE HEPATIC FUNCTION PNL [SQHFP] Order #: [id number] FUTURE Prescriptions as of 12/06/2018 Sig: BIOTIN 5 MG TABLET Take 5 mg by mouth once daily. X METHIMAZOLE 5 MG TABLET Take 1 tablet by mouth once d* CYANOCOBALAMIN (VIT B-12) 1,0* Take 1,000 mcg by mouth once * NORETHINDRONE ACETATE 1 MG-ET* Take 1 tablet by mouth once d* SULFACLEANSE 8-4 8 %-4 % TOPI* Apply 1 application to affect* OMEGA 3 FISH OIL ORAL Take 1,200 mg by mouth once d* CETIRIZINE 10 MG CAPSULE Take by mouth as needed. Problem List As Of Date 12/06/2018 Noted Resolved 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 These drug are considered Anti-thyroid drugs, as they are prescribed to slow-down the thyroid gland. Remember to call me for: Abdominal pains, especially right upper quadrant of the abdomen. Nausea, vomiting. Dark (tea-colored) urine. These could be signs of liver-toxicity. Also call me if: Sore throats. Fevers. These could be signs that the methimazole or propylthiouracil (PTU) is affecting the white blood cells. Note, both of the above are very rare, but contact me if those symptoms occur. Medications Discontinued During This Encounter CALCIUM CARBONATE/VITAMIN D2 (LIQUID* 12/06/2018 Class: Historical Med Route: ORAL Sig: Take by mouth once daily. Disc: Discontinued by another Health Care Provider ASCORBIC ACID (VITAMIN C ORAL) 12/06/2018 Class: Historical Med Route: ORAL Sig: Take 1 tablet by mouth once daily. Disc: Discontinued by another Health Care Provider HPR PLUS crea 11/21/2017 12/06/2018 Class: Historical Med Route: TOPICAL Sig: Apply 1 application to affected area once daily. Disc: Discontinued by another Health Care Provider VELTIN gel 10/21/2017 12/06/2018 Class: Historical Med Route: TOPICAL Sig: Apply 1 application to affected area daily at bedtime. Disc: Discontinued by another Health Care Provider metHIMazole (TAPAZOLE) 5 mg tablet 30 t* 0 11/04/2018 12/06/2018 Route: ORAL Sig: Take 1 tablet by mouth once daily. Disc: Duplicate Entry biotin 5,000 mcg subl 12/06/2018 Class: Historical Med Route: SUBLINGUAL Sig: Dissolve 1 tablet under the tongue once daily. Disc: Erroneous entry Disposition: Return in about 3 months (around 03/06/2019) for Any time slot. BOV type of appointment.. Follow-up and Disposition History Recorded Encounter Status:Closed by JOY GALEANO MD on 12/06/18 Normal [facility] PROGRESSon 12-06-2018 PROGRESS HNO ID: [id number] Author: Joy Galeano Service: (none) Author Type: Physician Type: Progress Notes Filed: 12/08/2018 5:17 PM Note Text: . [facility] General Endocrinology - [address], [address] [place] [address] General Endocrinology - [address], [address] [place] [address] Patient's name: Ritika Vega Patient's date of : 1985 Date of encounter: 12/06/2018 History of present illness: Ritika Vega is a 33 year old female who presents for follow up of an endocrinology issue. Previous history: 05/2015: TSH 0.600 (0.358-3.740 uIU/mL), at [facility] lab, 07/2018: Around this time she started feeling some malaise. 10/2018: She saw her Primary Care Physician for palpitations. 10/13/2018: TSH <0.005 (0.358-3.740 uIU/mL), free T4 2.19 (0.76-1.46 ng/dL), Liver function tests and neutrophils are both ok. 10/18/2018: TSH <0.005 (0.358-3.740 uIU/mL), free T4 2.20 (0.76-1.46 ng/dL), Total T3 2.4 (0.6-1.8 ng/mL), 10/18/2018: Thyroid Peroxidase Antibodies 1563.3 (0.0-60.0 IU/mL), 10/25/2018: Initial consultation with me. At time of visit, the Thyroid Stimulating Immunoglobulin (TSI) was pending. 10/2018: Thyroid Stimulating Immunoglobulin (TSI) 481 (<150 %), TBI 13.9 (<1.0 U/L), 11/04/2018: I started her on methimazole 5 mg daily. 11/24/2018: Liver function tests ok, this was a lab appointment. Interval history: The patient now returns for re-evaluation and follow-up. The above history was re-confirmed. When asked how she feels overall, she responded pretty good, actually. Thinks better overall since methimazole use. Notes more energy. Now on methimazole at 5 mg daily. This was started around 1 month ago, as above. 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 No dark urine. No sore throats, fevers or chills. No dysphagia, no new or existing hoarseness. No anterior neck compression / feeling of external pressure. Denies clearing of throat, or cough. Biotin: she did start this around a week ago. Last dose, was this AM. Celiac Disease: History of celiac disease (biopsy confirmed). Gluten free diet. Vitamin B12 Deficiency: History of B12 deficiency. 10/2018: Vitamin B-12 1058 (193-986 pg/mL), But, currently ok on oral. Allergies, medications, medical and surgical history, family history and social history, and problem list reviewed. Preferred pharmacy for the medications I prescribe (or may prescribe) is: [facility] [place] [address] - [id number]- [phone] Portal to Registered [facility] Sites Review of Systems Constitutional: Positive for malaise/fatigue (Improved overall with MMI use). Negative for chills, diaphoresis, fever and weight loss. HENT: Negative for sore throat. Eyes: Negative for pain. Respiratory: Negative for cough, shortness of breath and wheezing. Cardiovascular: Positive for palpitations (Lessened overall). Negative for chest pain and leg swelling. Gastrointestinal: Negative for abdominal pain, blood in stool, constipation, diarrhea, heartburn, nausea and vomiting. Genitourinary: Negative for flank pain, frequency, hematuria and urgency. Musculoskeletal: Negative for back pain, joint pain and myalgias. Skin: Negative for itching and rash. Neurological: Negative for dizziness, tingling, tremors, weakness and headaches. Endo/Heme/Allergies: Negative for polydipsia. Does not bruise/bleed easily. Psychiatric/Behavioral : Negative for depression and memory loss. The patient is not nervous/anxious and does not have insomnia. PAST MEDICAL HISTORY Diagnosis Date - B12 deficiency - Celiac disease Biopsy proven - Eating disorder history of age [age]. purging then restricting/ compulsive exercising PAST SURGICAL HISTORY Procedure Laterality Date - EGD Upper endoscoscopy: Dr. GriffithLjis-Cqqna-Ehcmjes Celiac Disease - ELBOW SURGERY HX 2008 left - ELBOW SURGERY HX Left 10/2016 - KNEE SURGERY HX 2007 Left x 2 - LASIK 2013 - ORAL SURGERY PROCEDURE 2006 - TONSILLECTOMY AND ADENOIDECTOMY HX FAMILY HISTORY Problem Relation Age of Onset - Breast Cancer Paternal Grandmother - Skin Cancer Paternal Grandmother - Diabetes Maternal Grandmother - Coronary Artery Disease Maternal Grandmother - GI Maternal Grandmother Diverticulitis - Hyperlipidemia Mother - Hypertension Mother - Fibromyalgia Mother - Blood Disease Mother MTHFR - Hypertension Father - GI Brother Non-celiac gluten sensitivity - Coronary Artery Disease Maternal Grandfather - Coronary Artery Disease Paternal Grandfather - Diabetes Paternal Aunt - other (Sarcoidosis) Maternal Aunt Social History Marital status: Single Spouse name: Years of education: Number of children: Occupational History 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 Special Diet Yes Comment:Gluten free Exercise Yes Comment:5 or more days/ week Current Outpatient Prescriptions: metHIMazole (TAPAZOLE) 5 mg tablet Take 1 tablet by mouth once daily. Disp: 30 tablet Rfl: 0 metHIMazole (TAPAZOLE) 5 mg tablet Take 1 tablet by mouth once daily. Disp: 90 tablet Rfl: 0 cyanocobalamin (VITAMIN B-12) 1,000 mcg tab Take 1,000 mcg by mouth once daily. Disp: Rfl: Norethindrone Acet-Ethinyl Est (JUNE,) 1-20 mg-mcg per tablet Take 1 tablet by mouth once daily. Disp: Rfl: VELTIN gel Apply 1 application to affected area daily at bedtime. Disp: Rfl: HPR PLUS crea Apply 1 application to affected area once daily. Disp: Rfl: SULFACLEANSE 8-4 8-4 % susp Apply 1 application to affected area once daily. Disp: Rfl: ASCORBIC ACID (VITAMIN C ORAL) Take 1 tablet by mouth once daily. Disp: Rfl: OMEGA-3 FATTY ACIDS/FISH OIL (OMEGA 3 FISH OIL ORAL) Take 1,200 mg by mouth once daily. Disp: Rfl: Cetirizine (ZYRTEC) 10 mg cap Take by mouth as needed. Disp: Rfl: CALCIUM CARBONATE/VITAMIN D2 (LIQUID CALCIUM 600-VITAMIN D ORAL) Take by mouth once daily. Disp: Rfl: No current facility-administered medications for this visit. BP 107/71 Pulse 66 Ht 5' 11 (1.80m) Wt 161 lb 3.2 oz (73.1kg) BMI 22.49 kg/(m2). Last 5 Encounter Wt Readings: Date: Wt: 12/06/2018 73.1 kg (161 lb 3.2 oz) 10/25/2018 71.3 kg (157 lb 3.2 oz) 10/13/2018 70.8 kg (156 lb) 12/08/2017 73.6 kg (162 lb 3.2 oz) 02/10/2017 75.3 kg (166 lb) Physical Exam Constitutional: She is oriented to person, place, and time and well-developed, well-nourished, and in no distress. She appears not jaundiced. Non-toxic appearance. She does not have a sickly appearance. HENT: Head: Normocephalic and atraumatic. Eyes: EOM are normal. No scleral icterus. Neck: Thyromegaly present. No thyroid mass present. Spongy gland. No distinct palpable thyroid nodules or masses. Non-tender anterior neck. Estimated size of thyroid gland 25grams. Cardiovascular: Normal rate and regular rhythm. No murmur heard. Pulmonary/Chest: Effort normal and breath sounds normal. No respiratory distress. She has no wheezes. She has no rhonchi. She has no rales. Abdominal: Soft. There is no hepatomegaly. There is no tenderness. There is no guarding and no CVA tenderness. Non-toxic abdominal examination. Musculoskeletal: She exhibits no edema. Lymphadenopathy: Head (right side): No submandibular, no tonsillar and no preauricular adenopathy present. Head (left side): No submandibular, no tonsillar and no preauricular adenopathy present. She has no cervical adenopathy. Neurological: She is alert and oriented to person, place, and time. She has intact cranial nerves. She displays tremor (Very mild hands). Reflex Scores: Patellar reflexes are 0 on the right side and 0 on the left side. Skin: Skin is warm. She is not diaphoretic. Psychiatric: Mood, affect and judgment normal. Vitals reviewed. Assessment and Plans: 1. Graves disease On methimazole 5 mg daily. On this for a month. Feels better, improving. Euthyroid exam overall. I reviewed the risks of anti-thyroid drugs including, but not limited to, agranulocytosis, hepatotoxicity, joint pains and rash. I will check her thyroid hormone levels. Once those are reviewed, then I will adjust the dose(s) as needed. Will send an electronic prescription to the mail-order pharmacy, in 90 day supplies, once labs reviewed. Preferred pharmacy for the medications I prescribe (or may prescribe) is: [facility] [place] [address] - [address]- [phone] Portal to [facility] Sites - TSH BLD; Future - T4 FREE/FREE THYROX; Future - T3 FREE BLD; Future - WBC W DIFF; Future - HEPATIC FUNCTION PNL; Future 2. Thyrotoxicosis without thyroid storm, unspecified thyrotoxicosis type Treat #1 3. Autoimmune disease (HCC) Graves and celiac disease 4. Celiac disease Gluten free diet 5. B12 deficiency On oral B12, levels fine 6. Taking medication for chronic disease Methimazole. Joy Galeano MD Addendum to note: December 06, 2018 She will stay off biotin for at least 48 hours, then get labs at [facility]. Joy Galeano MD 12/06/2018 10:01:39 Addendum to note: December 08, 2018 Data: 11/2018: TSH <0.005 (0.358-3.740 uIU/mL), free T4 1.70 (0.76-1.46 ng/dL), free T3 4.5 (2.2-4.0 pg/mL), on Methimazole 5 mg daily. Liver function tests and neutrophils are ok. off biotin for this test. The current dose of methimazole can be continued, for now. An electronic prescription was sent to the mail-order pharmacy. I will send her a message, in the [employer] portal. Joy Galeano MD 12/08/2018 17:17:20 Normal [facility] PROGRESSon 12-01-2018 PROGRESS HNO ID: [id number] Author: Joy Galeano Service: (none) Author Type: Physician Type: Progress Notes Filed: 12/01/2018 5:27 PM Note Text: Note: The following is an abstracted note of the previous History of Present Illness, in prep for an up-coming appointment. This is not a [id number] encounter. Previous history as follows: Previous history: 05/2015: TSH 0.600 (0.358-3.740 uIU/mL), at [facility] lab, 07/2018: Around this time she started feeling some malaise. 10/2018: She saw her Primary Care Physician for palpitations. 10/13/2018: TSH <0.005 (0.358-3.740 uIU/mL), free T4 2.19 (0.76-1.46 ng/dL), Liver function tests and neutrophils are both ok. 10/18/2018: TSH <0.005 (0.358-3.740 uIU/mL), free T4 2.20 (0.76-1.46 ng/dL), Total T3 2.4 (0.6-1.8 ng/mL), 10/18/2018: Thyroid Peroxidase Antibodies 1563.3 (0.0-60.0 IU/mL), 10/25/2018: Initial consultation with me. At time of visit, the Thyroid Stimulating Immunoglobulin (TSI) was pending. 10/2018: Thyroid Stimulating Immunoglobulin (TSI) 481 (<150 %), TBI 13.9 (<1.0 U/L), 11/04/2018: I started her on methimazole 5 mg daily. 11/24/2018: Liver function tests ok, this was a lab appointment. Celiac Disease: History of celiac disease (biopsy confirmed) Vitamin B12 Deficiency: History of B12 deficiency. 10/2018: Vitamin B-12 1058 (193-986 pg/mL), But, currently ok on oral. [facility] [facility] 11-24-2018 Bilirubin [Mass/Vol] 0.12 mg/dL Normal 0.00-0.20 [facility] Comment on above: Performed By: #### M AG #### [address] [address] ALP [Catalytic activity/Vol] 59 U/L Normal 46-116 [facility] Comment on above: Performed By: #### M AG #### [facility] [address] [place], [place] [address] Protein [Mass/Vol] 6.4 g/dL Normal 6.4-8.2 [facility] Comment on above: Performed By: #### M AG #### [facility] [address] [place], [place] [address] ALT [Catalytic activity/Vol] 46 U/L Normal 12-78 [facility] Comment on above: Performed By: #### M AG #### [facility] [address] [place], [place] [address] Bilirubin [Mass/Vol] 0.4 mg/dL Normal 0.2-1.0 [facility] Comment on above: Performed By: #### M AG #### [facility] [address] [place], [place] [address] AST [Catalytic activity/Vol] 19 U/L Normal 9-37 [facility] Comment on above: Performed By: #### M AG #### [facility] [address] [place], [place] [address] Albumin [Mass/Vol] 3.6 g/dL Normal 3.4-5.0 [facility] Comment on above: Performed By: #### M AG #### [facility] [address] [place], [place] [address] TSH Receptor Antibodyon 10-09 TSH Receptor Antibody SEE BELOW Normal [facility] Comment on above: Result Comment: TSI 481 H <150 % Normal This test was developed and its performance characteristics determined by [facility] [place] ([facility]). It has not been cleared or approved by the FDA. [facility] is regulated under CLIA as qualified to perform high-complexity testing. This test is used for clinical purposes. It should not be regarded as investigational or for research. TBI 13.9 H <1.0 U/L This test was developed and its performance characteristics determined by [facility] [place] ([facility]). It has not been cleared or approved by the FDA. [facility] is regulated under CLIA as qualified to perform high-complexity testing. This test is used for clinical purposes. It should not be regarded as investigational or for research. Performing Laboratory: [facility] [employer] [address] [place] [address] Performed By: #### M AG #### [facility] [address] [place], [place] [address] CNOVon 10-25-2018 CNOV Office Visit (ENAGST ) RITIKA VEGA ([id number]) 1985 F Date Time Provider Department 10/25/18 3:15 PM JOY GALEANO During your visit today, we recorded the following information about you: Pulse Blood pressure Weight Height 52/minute 104/67 71.3 kg 1.8 m Joy Galeano MD 11/04/2018 11:49 AM Addendum . [facility] Endocr[facility]ology [place] [address] [place] [address], [address] General Endocrinology - [address], [address] [place] [address] Patient's name: Ritika Vega Patient's date of : 1985 Date of encounter: 10/25/2018 History of present illness: Ritika Vega is a 32 year old female who presents for an evaluation of an endocrine issue. She was referred to me by Dr Jim Dawn for an evaluation of thyrotoxicosis. 05/2015: TSH 0.600 (0.358-3.740 uIU/mL), at [facility] lab, 07/2018: Around this time she started feeling some malaise. 10/2018: She saw her Primary Care Physician for palpitations. 10/13/2018: TSH <0.005 (0.358-3.740 uIU/mL), free T4 2.19 (0.76-1.46 ng/dL), Liver function tests and neutrophils are both ok. 10/18/2018: TSH <0.005 (0.358-3.740 uIU/mL), free T4 2.20 (0.76-1.46 ng/dL), Total T3 2.4 (0.6-1.8 ng/mL), 10/18/2018: Thyroid Peroxidase Antibodies 1563.3 (0.0-60.0 IU/mL), TSH receptor Abs pending. Initial consultation with me. 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 Of note, known heart murmur. Noted the palpitations for few months. Saw orthopedic recently, noted low BP. Then saw Primary Care Physician, as above. Not using any hgug-ppp-tawovio Biotin supplements, or mulivitamins with large doses of biotin such as Hair/Skin/Nail formulas. Not using any B-complex vitamin preparations. No dysphagia, no new or existing hoarseness. No anterior neck compression / feeling of external pressure. Denies clearing of throat, or cough. No history of head or neck irradiation. History of celiac disease (biopsy confirmed) History of B12 deficiency. But, currently ok on oral. 10/2018: Vitamin B-12 1058 (193-986 pg/mL), Review of Systems Constitutional: Positive for diaphoresis and malaise/fatigue. Negative for chills, fever and weight loss. HENT: Negative for sore throat. Eyes: Negative for pain. Respiratory: Negative for cough, shortness of breath and wheezing. Cardiovascular: Positive for palpitations. Negative for chest pain and leg swelling. Gastrointestinal: Negative for abdominal pain, blood in stool, constipation, diarrhea, heartburn, nausea and vomiting. Genitourinary: Negative for flank pain, frequency, hematuria and urgency. Musculoskeletal: Negative for back pain, joint pain and myalgias. Skin: Negative for itching and rash. Neurological: Negative for dizziness, tingling, tremors, weakness and headaches. Twitch right eye Endo/Heme/Allergies: Negative for polydipsia. Does not bruise/bleed easily. Psychiatric/Behavioral : Negative for depression and memory loss. The patient is not nervous/anxious and does not have insomnia. PAST MEDICAL HISTORY Diagnosis Date - Celiac disease - Eating disorder history of age [age]. purging then restricting/ compulsive exercising PAST SURGICAL HISTORY Procedure Laterality Date - EGD Upper endoscoscopy: Dr. GriffithBdtp-Ikuml-Mgxueqk Celiac Disease - ELBOW SURGERY HX 2008 left - KNEE SURGERY HX 2007 Left x 2 - LASIK 2013 - ORAL SURGERY PROCEDURE 2006 - TONSILLECTOMY AND ADENOIDECTOMY HX FAMILY HISTORY Problem Relation Age of Onset - Breast Cancer Paternal Grandmother - Skin Cancer Paternal Grandmother - Diabetes Maternal Grandmother - Coronary Artery Disease Maternal Grandmother - other (diverticulitis) Maternal Grandmother - Hyperlipidemia Mother - Hypertension Mother - Fibromyalgia Mother - Hypertension Father Social History Marital status: Single Spouse name: Years of education: Number of children: Occupational 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 Disp: Rfl: HPR PLUS crea Apply 1 application to affected area once daily. Disp: Rfl: Norethindrone Acet-Ethinyl Est (,) 1-20 mg-mcg per tablet Take 1 tablet by mouth once daily. Disp: Rfl: OMEGA-3 FATTY ACIDS/FISH OIL (OMEGA 3 FISH OIL ORAL) Take 1,200 mg by mouth once daily. Disp: Rfl: SULFACLEANSE 8-4 8-4 % susp Apply 1 application to affected area once daily. Disp: Rfl: VELTIN gel Apply 1 application to affected area daily at bedtime. Disp: Rfl: ASCORBIC ACID (VITAMIN C ORAL) Take 1 tablet by mouth once daily. Disp: Rfl: CALCIUM CARBONATE/VITAMIN D2 (LIQUID CALCIUM 600-VITAMIN D ORAL) Take by mouth once daily. Disp: Rfl: No current facility-administered medications for this visit. BP 104/67 Pulse 52 Ht 5' 10.87 (1.80m) Wt 157 lb 3.2 oz (71.3kg) LMP 10/11/2018 BMI 22.01 kg/(m2). Last 5 Encounter Wt Readings: Date: Wt: 10/25/2018 71.3 kg (157 lb 3.2 oz) 10/13/2018 70.8 kg (156 lb) 12/08/2017 73.6 kg (162 lb 3.2 oz) 02/10/2017 75.3 kg (166 lb) 11/19/2015 76.2 kg (168 lb 1.6 oz) Physical Exam Constitutional: She is oriented to person, place, and time and well-developed, well-nourished, and in no distress. She appears not jaundiced. Non-toxic appearance. She does not have a sickly appearance. HENT: Head: Normocephalic and atraumatic. Eyes: EOM are normal. No scleral icterus. Neck: Thyromegaly present. No thyroid mass present. Spongy gland. No distinct palpable thyroid nodules or masses. Non-tender anterior neck. Estimated size of thyroid gland 30 grams. Cardiovascular: Normal rate and regular rhythm. No murmur heard. Pulmonary/Chest: Effort normal and breath sounds normal. No respiratory distress. She has no wheezes. She has no rhonchi. She has no rales. Abdominal: Soft. There is no hepatomegaly. There is no tenderness. There is no guarding and no CVA tenderness. Non-toxic abdominal examination. Musculoskeletal: She exhibits no edema. Lymphadenopathy: Head (right side): No submandibular, no tonsillar and no preauricular adenopathy present. Head (left side): No submandibular, no tonsillar and no preauricular adenopathy present. She has no cervical adenopathy. Neurological: She is alert and oriented to person, place, and time. She has intact cranial nerves. She displays no tremor. Reflex Scores: Bicep reflexes are 0 on the right side and 0 on the left side. Patellar reflexes are 0 on the right side and 0 on the left side. No hand tremor Skin: Skin is warm. She is not diaphoretic. Psychiatric: Mood, affect and judgment normal. Vitals reviewed. Assessment and Plans: 1. 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 But, Thyroid Stimulating Immunoglobulin (TSI) pending (Her Primary Care Physician ordered it as TSH rec Abs). Of note, not too thyrotoxic on exam. Pulse around 60 and no tremor. I am not starting any beta blockers today. I reviewed the pathophysiology of Graves disease. Will check for results of TSH rec abs. Once I see that, will then start methimazole if appropriate or consider other diagnostic testing. I reviewed the risks of anti-thyroid drugs including, but not limited to, agranulocytosis, hepatotoxicity, joint pains and rash. If I start meds: Will send an electronic prescription to the mail-order pharmacy, in 90 day supplies, once labs reviewed. [place]. (But can do 30 day supply for initial Rx to: [facility]/pharmacy #[id number] [place] [address] - [address] [facility]??- [phone] ) 2. Celiac disease On gluten free diet 3. B12 deficiency Her recent b12 levels were very good, on an oral replacement. 4. Autoimmune disease (HCC) Today?s visit 60 minutes. Greater than 50% of this was spent in counseling and/or coordination of care. This included review of pathophysiology, treatment options and instructions. Joy Galeano MD Addendum to note: November 04, 201810/2018: Thyroid Stimulating Immunoglobulin (TSI) 481 (<150 %), TBI 13.9 (<1.0 U/L), 11/04/2018: I started her on methimazole 5 mg daily. See me 6 weeks. An electronic prescription was sent to the local pharmacy. An electronic prescription was sent to the mail-order pharmacy. (both). I will send her a message, in the [employer] portal. Joy Galeano MD 11/04/2018 11:49:11 Joy Galeano MD 10/25/2018 3:43 PM Signed Methimazole (Tapazole) or propylthiouracil (PTU) notes: You are on (or may be prescribed) methimazole (Tapazole) or propylthiouracil (PTU) for your over-active thyroid gland. These drug are considered Anti-thyroid drugs, as they are prescribed to slow-down the thyroid gland. Remember to call me for: Abdominal pains, especially right upper quadrant of the abdomen. Nausea, vomiting. Dark (tea-colored) urine. These could be signs of liver-toxicity. Also call me if: Sore throats. Fevers. These could be signs that the methimazole or propylthiouracil (PTU) is affecting the white blood cells. Note, both of the above are very rare, but contact me if those symptoms occur. Referring Provider: SANDY DAWN [[id number]] Allergies As of Date: 10/25/2018 (No Known Allergies) Date Reviewed: 10/25/2018 Reviewed by: Joy Galeano - Fully Assessed Reason for Visit: New Patient [172] Thyroid Problem [110] Primary Visit Diagnosis:Thyrotoxicos is without thyroid storm, unspecified thyrotoxicosis type [E05.90] Other Visit Diagnoses:Celiac disease [K90.0] B12 deficiency [E53.8] Autoimmune disease (HCC) [D89.89] Prescriptions as of 10/25/2018 Sig: CETIRIZINE 10 MG CAPSULE Take by mouth as needed. CYANOCOBALAMIN (VIT B-12) 1,0* Take 1,000 mcg by mouth once * HPR PLUS TOPICAL CREAM Apply 1 application to affect* NORETHINDRONE ACETATE 1 MG-ET* Take 1 tablet by mouth once d* OMEGA 3 FISH OIL ORAL Take 1,200 mg by mouth once d* SULFACLEANSE 8-4 8 %-4 % TOPI* Apply 1 application to affect* VELTIN 1.2 %-0.025 % TOPICAL * Apply 1 application to affect* VITAMIN C ORAL Take 1 tablet by mouth once d* LIQUID CALCIUM 600-VITAMIN D * Take by mouth once daily. 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 These drug are considered Anti-thyroid drugs, as they are prescribed to slow-down the thyroid gland. Remember to call me for: Abdominal pains, especially right upper quadrant of the abdomen. Nausea, vomiting. Dark (tea-colored) urine. These could be signs of liver-toxicity. Also call me if: Sore throats. Fevers. These could be signs that the methimazole or propylthiouracil (PTU) is affecting the white blood cells. Note, both of the above are very rare, but contact me if those symptoms occur. Disposition: Return for F/U will assess labs/tests, then assess F/U needs. Follow-up and Disposition History Recorded Letter Text Encounter Status:Closed by JOY GALEANO MD on 10/25/18 [facility] Tee 10-25-2018 CNPN Telephone ([facility]) RITIKA VEGA ([id number]) 1985 F Date Time Provider Department 10/25/18 SANDY DAWN [facility] During your visit today, we recorded the following information about you: Celio Hernandez Director Of Retention 10/25/2018 10:56 AM Signed Order placed via [employer] online referrals portal for consult to endocrinology. Referral # [id number] Celio Hernandez Director Of Retention 11/17/2018 2:03 PM Signed Good Morning, This e-mail is a confirmation that your patient listed below has been scheduled for an appointment with [facility] should you have any questions or concerns regarding this appointment please contact the appropriate office directly: Medical Records (Please Note) x Medical Records Are Not Required: Referring Office AND Specialist Are Both On [facility]. Medical Records Are Required: Fax Appropriate Records Including: Order, Last Office Note, AND Any Necessary Imaging/Labs/Etc. To: Additional Office Location Information AND Phone Numbers [facility] ? [facility] [place] [place] ? [address], [address], [place] [address] ? X [facility] [employer] [facility] [employer] ? [facility] [place], [place] ? [address] [place], [place] [address] ? Allergies As of Date: 10/25/2018 (No Known Allergies) Date Reviewed: 10/25/2018 Reviewed by: Joy Galeano - Fully Assessed Reason for Visit: consult to endocrinology [Other] Prescriptions as of 10/25/2018 Sig: NORETHINDRONE ACETATE 1 MG-ET* Take 1 tablet by mouth once d* VELTIN 1.2 %-0.025 % TOPICAL * Apply 1 application to affect* HPR PLUS TOPICAL CREAM Apply 1 application to affect* SULFACLEANSE 8-4 8 %-4 % TOPI* Apply 1 application to affect* VITAMIN C ORAL Take 1 tablet by mouth once d* OMEGA 3 FISH OIL ORAL Take 1,200 mg by mouth once d* CETIRIZINE 10 MG CAPSULE Take by mouth as needed. LIQUID CALCIUM 600-VITAMIN D * Take by mouth once daily. 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 [facility] Endocrinology - [place] [address], [address] [place], [place] [address] [place] [address] Endocrinology - [address], [address] [place], [place] [address] Patient's name: Ritika Vega Patient's date of : 1985 Date of encounter: 10/25/2018 History of present illness: Ritika Vega is a 32 year old female who presents for an evaluation of an endocrine issue. She was referred to me by Dr Jim Dawn for an evaluation of thyrotoxicosis. 05/2015: TSH 0.600 (0.358-3.740 uIU/mL), at [facility] lab, 07/2018: Around this time she started feeling some malaise. 10/2018: She saw her Primary Care Physician for palpitations. 10/13/2018: TSH <0.005 (0.358-3.740 uIU/mL), free T4 2.19 (0.76-1.46 ng/dL), Liver function tests and neutrophils are both ok. 10/18/2018: TSH <0.005 (0.358-3.740 uIU/mL), free T4 2.20 (0.76-1.46 ng/dL), Total T3 2.4 (0.6-1.8 ng/mL), 10/18/2018: Thyroid Peroxidase Antibodies 1563.3 (0.0-60.0 IU/mL), TSH receptor Abs pending. Initial consultation with me. 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 Of note, known heart murmur. Noted the palpitations for few months. Saw orthopedic recently, noted low BP. Then saw Primary Care Physician, as above. Not using any uwoy-wof-[id number] Biotin supplements, or mulivitamins with large doses of biotin such as Hair/Skin/Nail formulas. Not using any B-complex vitamin preparations. No dysphagia, no new or existing hoarseness. No anterior neck compression / feeling of external pressure. Denies clearing of throat, or cough. No history of head or neck irradiation. History of celiac disease (biopsy confirmed) History of B12 deficiency. But, currently ok on oral. 10/2018: Vitamin B-12 1058 (193-986 pg/mL), Review of Systems Constitutional: Positive for diaphoresis and malaise/fatigue. Negative for chills, fever and weight loss. HENT: Negative for sore throat. Eyes: Negative for pain. Respiratory: Negative for cough, shortness of breath and wheezing. Cardiovascular: Positive for palpitations. Negative for chest pain and leg swelling. Gastrointestinal: Negative for abdominal pain, blood in stool, constipation, diarrhea, heartburn, nausea and vomiting. Genitourinary: Negative for flank pain, frequency, hematuria and urgency. Musculoskeletal: Negative for back pain, joint pain and myalgias. Skin: Negative for itching and rash. Neurological: Negative for dizziness, tingling, tremors, weakness and headaches. Twitch right eye Endo/Heme/Allergies: Negative for polydipsia. Does not bruise/bleed easily. Psychiatric/Behavioral : Negative for depression and memory loss. The patient is not nervous/anxious and does not have insomnia. PAST MEDICAL HISTORY Diagnosis Date - Celiac disease - Eating disorder history of age [age]. purging then restricting/ compulsive exercising PAST SURGICAL HISTORY Procedure Laterality Date - EGD Upper endoscoscopy: Dr. GriffithOeow-Hymoj-Ggyjduh Celiac Disease - ELBOW SURGERY HX 2008 left - KNEE SURGERY HX 2007 Left x 2 - LASIK 2013 - ORAL SURGERY PROCEDURE 2006 - TONSILLECTOMY AND ADENOIDECTOMY HX FAMILY HISTORY Problem Relation Age of Onset - Breast Cancer Paternal Grandmother - Skin Cancer Paternal Grandmother - Diabetes Maternal Grandmother - Coronary Artery Disease Maternal Grandmother - other (diverticulitis) Maternal Grandmother - Hyperlipidemia Mother - Hypertension Mother - Fibromyalgia Mother - Hypertension Father Social History Marital status: Single Spouse name: Years of education: Number of children: Occupational 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 Disp: Rfl: HPR PLUS crea Apply 1 application to affected area once daily. Disp: Rfl: Norethindrone Acet-Ethinyl Est (JUNE,) 1-20 mg-mcg per tablet Take 1 tablet by mouth once daily. Disp: Rfl: OMEGA-3 FATTY ACIDS/FISH OIL (OMEGA 3 FISH OIL ORAL) Take 1,200 mg by mouth once daily. Disp: Rfl: SULFACLEANSE 8-4 8-4 % susp Apply 1 application to affected area once daily. Disp: Rfl: VELTIN gel Apply 1 application to affected area daily at bedtime. Disp: Rfl: ASCORBIC ACID (VITAMIN C ORAL) Take 1 tablet by mouth once daily. Disp: Rfl: CALCIUM CARBONATE/VITAMIN D2 (LIQUID CALCIUM 600-VITAMIN D ORAL) Take by mouth once daily. Disp: Rfl: No current facility-administered medications for this visit. BP 104/67 Pulse 52 Ht 5' 10.87 (1.80m) Wt 157 lb 3.2 oz (71.3kg) LMP 10/11/2018 BMI 22.01 kg/(m2). Last 5 Encounter Wt Readings: Date: Wt: 10/25/2018 71.3 kg (157 lb 3.2 oz) 10/13/2018 70.8 kg (156 lb) 12/08/2017 73.6 kg (162 lb 3.2 oz) 02/10/2017 75.3 kg (166 lb) 11/19/2015 76.2 kg (168 lb 1.6 oz) Physical Exam Constitutional: She is oriented to person, place, and time and well-developed, well-nourished, and in no distress. She appears not jaundiced. Non-toxic appearance. She does not have a sickly appearance. HENT: Head: Normocephalic and atraumatic. Eyes: EOM are normal. No scleral icterus. Neck: Thyromegaly present. No thyroid mass present. Spongy gland. No distinct palpable thyroid nodules or masses. Non-tender anterior neck. Estimated size of thyroid gland 30 grams. Cardiovascular: Normal rate and regular rhythm. No murmur heard. Pulmonary/Chest: Effort normal and breath sounds normal. No respiratory distress. She has no wheezes. She has no rhonchi. She has no rales. Abdominal: Soft. There is no hepatomegaly. There is no tenderness. There is no guarding and no CVA tenderness. Non-toxic abdominal examination. Musculoskeletal: She exhibits no edema. Lymphadenopathy: Head (right side): No submandibular, no tonsillar and no preauricular adenopathy present. Head (left side): No submandibular, no tonsillar and no preauricular adenopathy present. She has no cervical adenopathy. Neurological: She is alert and oriented to person, place, and time. She has intact cranial nerves. She displays no tremor. Reflex Scores: Bicep reflexes are 0 on the right side and 0 on the left side. Patellar reflexes are 0 on the right side and 0 on the left side. No hand tremor Skin: Skin is warm. She is not diaphoretic. Psychiatric: Mood, affect and judgment normal. Vitals reviewed. Assessment and Plans: 1. 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 But, Thyroid Stimulating Immunoglobulin (TSI) pending (Her Primary Care Physician ordered it as TSH rec Abs). Of note, not too thyrotoxic on exam. Pulse around 60 and no tremor. I am not starting any beta blockers today. I reviewed the pathophysiology of Graves disease. Will check for results of TSH rec abs. Once I see that, will then start methimazole if appropriate or consider other diagnostic testing. I reviewed the risks of anti-thyroid drugs including, but not limited to, agranulocytosis, hepatotoxicity, joint pains and rash. If I start meds: Will send an electronic prescription to the mail-order pharmacy, in 90 day supplies, once labs reviewed. [place]. (But can do 30 day supply for [facility] [facility]pharm[facility] #[id number] [place] [address] [id number] [facility]- [phone] ) 2. Celiac disease On gluten free diet 3. B12 deficiency Her recent b12 levels were very good, on an oral replacement. 4. Autoimmune disease (HCC) Today?s visit 60 minutes. Greater than 50% of this was spent in counseling and/or coordination of care. This included review of pathophysiology, treatment options and instructions. Joy Galeano MD Addendum to note: November 04, 201810/2018: Thyroid Stimulating Immunoglobulin (TSI) 481 (<150 %), TBI 13.9 (<1.0 U/L), 11/04/2018: I started her on methimazole 5 mg daily. See me 6 weeks. An electronic prescription was sent to the local pharmacy. An electronic prescription was sent to the mail-order pharmacy. (both). I will send her a message, in the [employer] portal. Joy Galeano MD 11/04/2018 11:49:11 Normal [facility] T3, Totalon 10-19-2018 T3, Total 2.4 ng/mL High 0.6-1.8 [facility] Comment on above: Performed By: #### M AG #### [place] [address] Thyro. Peroxidase Abon 10-19 TPO Ab Qn 1568.3 IU/ml High 0.0-60.0 [facility] Comment on above: Performed By: #### M AG #### [place] [id number] Free Thyroxineon 10-18-2018 Free T4 [Mass/Vol] 2.20 ng/dL High 0.76-1.46 [facility] Comment on above: Performed By: #### F T4 #### [place] [phone] TSH, 3rd generationon 2017 TSH, 3rd generation <0.005 Low 0.358-3.740 [facility] Comment on above: Performed By: #### T SH3 #### [place] [phone] Total 25-OH Vitamin Don 12-0 Total 25-OH Vitamin D 36.2 ng/mL Normal 30.0-100.0 [facility] Comment on above: Performed By: #### 2 5VD1 #### [facility] [address] [place] [phone] CNOVon 10-13-2018 CNOV Office Visit ([facility]) RITIKA VEGA ([id number]) 1985 F Date Time Provider Department 10/13/18 11:40 AM SANDY DAWN [facility] During your visit today, we recorded the following information about you: Temperature Pulse Respiration Blood pressure 96.4 degrees 56/minute 17/minute 102/64 Weight Height Last Period 70.8 kg 1.8 m 10/11/18 Sandy Dawn DO 10/13/2018 1:27 PM Signed Ritika Gary is a 32 year old female who presents with complaint of low BP, fatigue, palpitations, ear pressure HPI Went to ultrasound applications specialist to get a cortisone shot in right shoulder. and her BP was 90/60 which concerned her. She was tired at the moment But did not have lightheadedness. She rarely gets lightheaded- only if she stands up too quickly. She has noticed increased fatigue lately. She has been monitoring it since then- typically sees 102/68 as her norm- around there Also noted with her heart she has noted some racing and sensing an extra beat every once in a while- more than normal within the past 2 years She has one travel mug of coffee in the morning and a chair tea in the afternoon if she needs it. 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 Notices the palpitations a few times a week- only notices it while she is still- lasts a few seconds, feels like skipping beats She exercises regularly without chest pain, palpitations. Also feels some abnormality in her ears- feels like they always need to pop ekg in office showed sinus bradycardia rate of 57 No visits with results within 1 Day(s) from this visit. Latest known visit with results is: Office Visit on 12/08/2017 Component Date Value Ref Range Status - Rapid Strep 12/08/2017 negative neg - pos Final - Quality Check 12/08/2017 Yes yes/no Final PAST MEDICAL HISTORY Diagnosis Date - Celiac disease - Eating disorder history of age [age]. 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 Social History Main Topics Smoking status: Never Smoker Smokeless tobacco: Never Used Alcohol use: Yes Comment: occ 1 drink every few weeks Drug use: No Sexual activity: No Other Topics Concern Service No Blood Transfusions No Caffeine Concern No Comment:uses caffeine Occupational Exposure No Hobby Hazards No Sleep Concern No Stress Concern No Weight Concern No Special Diet No Comment:good Back Care No Exercise Yes Comment:5 or more days/ week Bike Helmet No Seat Belt Yes Self-Exams No ALLERGIES No Known Allergies Family History Problem Relation Age of Onset - Breast Cancer Paternal Grandmother - Skin Cancer Paternal Grandmother - other (diabetes mellitus) Maternal Grandmother - other (heart disease) Maternal Grandmother - other (diverticulitis) Maternal Grandmother - Hyperlipidemia Mother - Hypertension Mother - other (fibromyalgia) Mother - Hypertension Father Current Outpatient Prescriptions: SULFACLEANSE 8-4 8-4 % susp Apply 1 application to affected area once daily. Disp: Rfl: ASCORBIC ACID (VITAMIN C ORAL) Take 1 tablet by mouth once daily. Disp: Rfl: OMEGA-3 FATTY ACIDS/FISH OIL (OMEGA 3 FISH OIL ORAL) Take 1,200 mg by mouth once daily. Disp: Rfl: Cetirizine (ZYRTEC) 10 mg cap Take by mouth. Disp: Rfl: Norethindrone Acet-Ethinyl Est (JUNE,) 1-20 mg-mcg per tablet Take 1 tablet by mouth once daily. Disp: Rfl: VELTIN gel Apply 1 application to affected area daily at bedtime. Disp: Rfl: HPR PLUS crea Apply 1 application to affected area once daily. Disp: Rfl: ipratropium bromide (ATROVENT) 42 mcg (0.06 %) nasal spray Use 2 Sprays in the nose four times daily. Use as directed. For up to (3) three weeks. (Patient not taking: Reported on 10/13/2018 ) Disp: 1 Bottle Rfl: 0 Norethin Wilmer-Eth Estrad-FE (, ,) 1.5 mg-30 mcg (21)/75 mg (7) tablet Take 1 tablet by mouth once daily. Disp: Rfl: CALCIUM CARBONATE/VITAMIN D2 (LIQUID CALCIUM 600-VITAMIN D ORAL) Take by mouth once daily. Disp: Rfl: No current facility-administered medications for this visit. Review of Systems Constitutional: Negative for chills, diaphoresis, fever, malaise/fatigue and weight loss. HENT: Negative for congestion, ear pain, hearing loss, nosebleeds and sore throat. Eyes: Negative for blurred vision, double vision, pain and redness. Respiratory: Negative for cough, shortness of breath and wheezing. Cardiovascular: Positive for palpitations. Negative for chest pain, claudication and leg swelling. Gastrointestinal: Negative for abdominal pain, blood in stool, constipation, diarrhea, nausea and vomiting. Genitourinary: Negative for dysuria, frequency and hematuria. Musculoskeletal: Negative for falls, joint pain and myalgias. Skin: Negative for itching and rash. Neurological: Negative for dizziness, tingling, tremors, focal weakness and headaches. Endo/Heme/Allergies: Negative for polydipsia. Does not bruise/bleed easily. Psychiatric/Behavioral : Negative for depression, substance abuse and suicidal ideas. The patient is not nervous/anxious and does not have insomnia. BP 102/64 Pulse 56 Temp 96.4 Resp 17 Ht 5' 10.866 (1.80m) Wt 156 lb (70.8kg) LMP 10/11/2018 BMI 21.84 kg/(m2). Physical Exam Constitutional: She is oriented to person, place, and time and well-developed, well-nourished, and in no distress. No distress. HENT: Head: Normocephalic and atraumatic. Right Ear: Hearing, tympanic membrane, external ear and ear canal normal. Left Ear: Hearing, tympanic membrane, external ear and ear canal normal. Nose: Nose normal. Mouth/Throat: Oropharynx is clear and moist. Eyes: Pupils are equal, round, and reactive to light. Conjunctivae and EOM are normal. Neck: Normal range of motion. Neck supple. Carotid bruit is not present. No tracheal deviation present. No thyromegaly present. Cardiovascular: Normal rate, regular rhythm, normal heart sounds and intact distal pulses. Exam reveals no gallop and no friction rub. No murmur heard. Pulmonary/Chest: Effort normal and breath sounds normal. No respiratory distress. She has no wheezes. She has no rales. Abdominal: Soft. Bowel sounds are normal. She exhibits no distension and no mass. There is no tenderness. Lymphadenopathy: She has no cervical adenopathy. Neurological: She is alert and oriented to person, place, and time. Skin: Skin is warm and dry. She is not diaphoretic. Psychiatric: Mood, memory, affect and judgment normal. Vitals reviewed. New medication(s) prescribed today: None. Counseling completed in adopting health behaviors such as avoiding excessive alcohol use, avoid tobacco use, improve nutrition, and engage in physical activities. Copy of written care plan, clinical summary, treatment plan, new medications, goals, and self management requirements were given to patient. ASSESSMENT/PLAN: 1. Palpitations - ICD9: 785.1, ICD10: R00.2 (primary diagnosis) Reassurance given, likely PVCs related to caffeine and/or stress. Recommended labwork and working on decreasing caffeine intake. Call if worsens in frequency or severity - CBC + DIFF - MAGNESIUM BLD - VITAMIN D 25 HYDROXY - TSH BLD - VITAMIN B12 BLOOD - T4 FREE/FREE THYROX - COMP METABOLIC PANEL - ECG B/O W INTERP (MED OFFICE) 2. Fatigue, unspecified type - ICD9: 780.79, ICD10: R53.83 Check labwork - CBC + DIFF - MAGNESIUM BLD - VITAMIN D 25 HYDROXY - TSH BLD - VITAMIN B12 BLOOD - T4 FREE/FREE THYROX - COMP METABOLIC PANEL - ECG B/O W INTERP (MED OFFICE) 3. Eustachian tube dysfunction, bilateral - ICD9: 381.81, ICD10: H69.83 Recommended nasacort to help with fluid. 4. Low blood pressure reading - ICD9: 796.3, ICD10: R03.1 reassurance given. Sandy Dawn DO Referring Provider: SELF [200] Allergies As of Date: 10/13/2018 (No Known Allergies) Date Reviewed: 10/13/2018 Reviewed by: Gladys Huffman - Fully Assessed Reason for Visit: Follow Up [171] Primary Visit Diagnosis:Palpitations [R00.2] Other Visit Diagnoses:Fatigue, unspecified type [R53.83] Eustachian tube dysfunction, bilateral [H69.83] Low blood pressure reading [R03.1] Order(s):CBC + DIFF [SQCBCDIF] Order #: [id number] FUTURE MAGNESIUM BLD [SQMG1] Order #: [id number] FUTURE VITAMIN D 25 HYDROXY [SQVITD] Order #: [id number] FUTURE TSH BLD [SQTSH] Order #: [id number] FUTURE VITAMIN B12 BLOOD [SQB12] Order #: [id number] FUTURE T4 FREE/FREE THYROX [SQFT4] Order #: [id number] FUTURE COMP METABOLIC PANEL [SQCMP] Order #: [id number] FUTURE ECG B/O W INTERP (MED OFFICE) [ECG06] Order #: [id number] Prescriptions as of 10/13/2018 Sig: NORETHINDRONE ACETATE 1 MG-ET* Take 1 tablet by mouth once d* SULFACLEANSE 8-4 8 %-4 % TOPI* Apply 1 application to affect* VITAMIN C ORAL Take 1 tablet by mouth once d* OMEGA 3 FISH OIL ORAL Take 1,200 mg by mouth once d* CETIRIZINE 10 MG CAPSULE Take by mouth. VELTIN 1.2 %-0.025 % TOPICAL * Apply 1 application to affect* HPR PLUS TOPICAL CREAM Apply 1 application to affect* LIQUID CALCIUM 600-VITAMIN D * Take by mouth once daily. 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 Disc: Duplicate Entry ipratropium bromide (ATROVENT) 42 mc* 1 Javed* 0 12/08/2017 10/13/2018 Route: NASAL Sig: Use 2 Sprays in the nose four times daily. Use as directed. For up to (3) three weeks. Patient not taking: Reported on 10/13/2018 Disc: Course of therapy completed Disposition: Return in about 6 months (around 04/13/2019) for physical. Follow-up and Disposition History Recorded Encounter Status:Closed by SANDY DAWN DO on 10/13/18 Normal [facility] Comprehensive Panelon 2017 ALP [Catalytic activity/Vol] 69 U/L Normal 46-116 [facility] Comment on above: Performed By: #### P 14 #### [address] [address] Bilirubin [Mass/Vol] 0.4 mg/dL Normal 0.2-1.0 [facility] Comment on above: Performed By: #### P 14 #### [address] [address] Protein [Mass/Vol] 7.1 g/dL Normal 6.4-8.2 [facility] Comment on above: Performed By: #### P 14 #### [address] [address] ALT [Catalytic activity/Vol] 51 U/L Normal 12-78 [facility] Comment on above: Performed By: #### P 14 #### [facility] [address] [place], [place] [address] AST [Catalytic activity/Vol] 22 U/L Normal 9-37 [facility] Comment on above: Performed By: #### P 14 #### [facility] [address] [place], [place] [address] Creatinine [Mass/Vol] 0.87 mg/dL Normal 0.51-0.95 [facility] Comment on above: Performed By: #### P 14 #### [facility] [address] [place], [place] [address] Albumin [Mass/Vol] 3.6 g/dL Normal 3.4-5.0 [facility] Comment on above: Performed By: #### P 14 #### [facility] [address] [place], [place] [address] Anion gap [Moles/Vol] 16 mmol/L Normal 8-16 [facility] Comment on above: Performed By: #### P 14 #### [facility] [address] [place], [place] [address] CO2 [Moles/Vol] 24 mmol/L Normal 21-32 [facility] Comment on above: Performed By: #### P 14 #### [facility] [address] [place], [place] [address] Glucose [Mass/Vol] 69 mg/dL Low 70-99 [facility] Comment on above: Performed By: #### P 14 #### [facility] [address] [place], [place] [address] Urea nitrogen [Mass/Vol] 19 mg/dL High 7-18 [facility] Comment on above: Performed By: #### P 14 #### [facility] [address] [place], [place] [address] Calcium [Mass/Vol] 8.9 mg/dL Normal 8.5-10.1 [facility] Comment on above: Performed By: #### P 14 #### [facility] [address] [place], [place] [address] Chloride [Moles/Vol] 105 mmol/L Normal 98-107 [facility] Comment on above: Performed By: #### P 14 #### [facility] [address] [place], [place] [address] Potassium [Moles/Vol] 5.0 mmol/L Normal 3.5-5.1 [facility] Comment on above: Performed By: #### P 14 #### [facility] [address] [place], [place] [address] Sodium [Moles/Vol] 140 mmol/L Normal 136-145 [facility] Comment on above: Performed By: #### P 14 #### [facility] [address] [place], [place] [address] Free Thyroxineon 10-13-2018 Free T4 [Mass/Vol] 2.19 ng/dL High 0.76-1.46 [facility] Comment on above: Performed By: #### F T4 #### [facility] [address] [place] [address] Hemogram/Diffon 10-13-2018 Abs Immature Grans 0.02 thou/cmm Normal 0.00-0.05 [facility] Comment on above: Performed By: #### C BCD1 #### [facility] [address] [place] [address] Abs. Baso 0.03 thou/cmm Normal 0.01-0.08 [facility] Comment on above: Performed By: #### C BCD1 #### [facility] [address] [place] [address] Abs. [place] 0.52 thou/cmm Normal 0.27-0.70 [facility] Comment on above: Performed By: #### C BCD1 #### [place] [address] Abs. Neut (ANC) 4.16 thou/cmm Normal 1.56-6.13 [facility] Comment on above: Performed By: #### C BCD1 #### [place] [address] Basophils/100 WBC (Bld) 0.4 % Normal [facility] Comment on above: Performed By: #### C BCD1 #### [place] [address] Eosinophils (Bld) [#/Vol] 0.04 thou/cmm Normal 0.00-0.31 [facility] Comment on above: Performed By: #### C BCD1 #### [facility] [address] [place] [address] Eosinophils/100 WBC (Bld) 0.6 % Normal [facility] Comment on above: Performed By: #### C BCD1 #### [facility] [address] [place] [address] Erythrocyte distribution width (RBC) [Ratio] 11.9 % Normal 11.7-14.4 [facility] Comment on above: Performed By: #### C BCD1 #### [facility] [address] [place], [place] [address] Hematocrit (Bld) [Volume fraction] 43.2 % Normal 34.1-44.9 [facility] Comment on above: Performed By: #### C BCD1 #### [facility] [address] [place], [place] [address] Hemoglobin (Bld) [Mass/Vol] 14.2 g/dL Normal 11.2-15.7 [facility] Comment on above: Performed By: #### C BCD1 #### [facility] [address] [place] [address] Immature Grans 0.30 % Normal [facility] Comment on above: Performed By: #### C BCD1 #### [facility] [address] [place] [address] Lymphocytes (Bld) [#/Vol] 2.01 thou/cmm Normal 1.18-3.74 [facility] Comment on above: Performed By: #### C BCD1 #### [facility] [address] [place] [address] Lymphocytes/100 WBC (Bld) 29.6 % Normal [facility] Comment on above: Performed By: #### C BCD1 #### [facility] [address] [place] [address] MCH (RBC) [Entitic mass] 31.0 pg Normal 25.6-32.2 [facility] Comment on above: Performed By: #### C BCD1 #### [facility] [address] [place] [address] MCHC (RBC) [Mass/Vol] 32.9 % Normal 31.6-34.8 [facility] Comment on above: Performed By: #### C BCD1 #### [facility] [address] [place] [address] MCV (RBC) [Entitic vol] 94.3 fL Normal 79.4-94.8 [facility] Comment on above: Performed By: #### C BCD1 #### [facility] [address] [place] [address] Monocytes/100 WBC (Bld) 7.7 % Normal [facility] Comment on above: Performed By: #### C BCD1 #### [facility] [address] [place], [place] [address] Platelet mean volume (Bld) [Entitic vol] 10.8 fL Normal 9.4-12.3 [facility] Comment on above: Performed By: #### C BCD1 #### [facility] [address] [place], [place] [address] Platelets (Bld) [#/Vol] 322 thou/cmm Normal 182-369 [facility] Comment on above: Performed By: #### C BCD1 #### [facility] [address] [place], [place] [address] RBC (Bld) [#/Vol] 4.58 mil/cmm Normal 3.93-5.22 [facility] Comment on above: Performed By: #### C BCD1 #### [facility] [address] [place] [address] RDW SD 41.5 fl Normal 36.4-46.3 [facility] Comment on above: Performed By: #### C BCD1 #### [facility] [address] [place], [place] [address] Seg Neutrophil 61.4 % Normal [facility] Comment on above: Performed By: #### C BCD1 #### [facility] [address] [place], [place] [address] WBC (Bld) [#/Vol] 6.78 thou/cmm Normal 3.98-10.04 [facility] Comment on above: Performed By: #### C BCD1 #### [facility] [address] [place], [place] [address] MDRD GFRon 10-13-2018 GFR/1.73 sq M predicted among non-blacks MDRD (S/P/Bld) [Vol rate/Area] mL/min/{1.73_m2} Normal >60mL/min/1. 73m2 [facility] Comment on above: Result Comment: If t he patient is , multiply the result by 1.210. Performed By: #### G FR #### [facility] [address] [place] [phone] Magnesium Bloodon 10-13-2018 Magnesium [Mass/Vol] 2.2 mg/dL Normal 1.6-2.6 [facility] Comment on above: Performed By: #### M AG #### [facility] [address] [place] [phone] PROGRESSon 10-13-2018 PROGRESS HNO ID: [id number] Author: Sandy Dawn Service: (none) Author Type: Physician Type: Progress Notes Filed: 10/13/2018 1:27 PM Note Text: Ritika Vega is a 32 year old female who presents with complaint of low BP, fatigue, palpitations, ear pressure HPI Went to ultrasound applications specialist to get a cortisone shot in right shoulder. and her BP was 90/60 which concerned her. She was tired at the moment But did not have lightheadedness. She rarely gets lightheaded- only if she stands up too quickly. She has noticed increased fatigue lately. She has been monitoring it since then- typically sees 102/68 as her norm- around there Also noted with her heart she has noted some racing and sensing an extra beat every once in a while- more than normal within the past 2 years She has one travel mug of coffee in the morning and a chair tea in the afternoon if she needs it. 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 Notices the palpitations a few times a week- only notices it while she is still- lasts a few seconds, feels like skipping beats She exercises regularly without chest pain, palpitations. Also feels some abnormality in her ears- feels like they always need to pop ekg in office showed sinus bradycardia rate of 57 No visits with results within 1 Day(s) from this visit. Latest known visit with results is: Office Visit on 12/08/2017 Component Date Value Ref Range Status - Rapid Strep 12/08/2017 negative neg - pos Final - Quality Check 12/08/2017 Yes yes/no Final PAST MEDICAL HISTORY Diagnosis Date - Celiac disease - Eating disorder history of age [age]. 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 Social History Main Topics Smoking status: Never Smoker Smokeless tobacco: Never Used Alcohol use: Yes Comment: occ 1 drink every few weeks Drug use: No Sexual activity: No Other Topics Concern Service No Blood Transfusions No Caffeine Concern No Comment:uses caffeine Occupational Exposure No Hobby Hazards No Sleep Concern No Stress Concern No Weight Concern No Special Diet No Comment:good Back Care No Exercise Yes Comment:5 or more days/ week Bike Helmet No Seat Belt Yes Self-Exams No ALLERGIES No Known Allergies Family History Problem Relation Age of Onset - Breast Cancer Paternal Grandmother - Skin Cancer Paternal Grandmother - other (diabetes mellitus) Maternal Grandmother - other (heart disease) Maternal Grandmother - other (diverticulitis) Maternal Grandmother - Hyperlipidemia Mother - Hypertension Mother - other (fibromyalgia) Mother - Hypertension Father Current Outpatient Prescriptions: SULFACLEANSE 8-4 8-4 % susp Apply 1 application to affected area once daily. Disp: Rfl: ASCORBIC ACID (VITAMIN C ORAL) Take 1 tablet by mouth once daily. Disp: Rfl: OMEGA-3 FATTY ACIDS/FISH OIL (OMEGA 3 FISH OIL ORAL) Take 1,200 mg by mouth once daily. Disp: Rfl: Cetirizine (ZYRTEC) 10 mg cap Take by mouth. Disp: Rfl: Norethindrone Acet-Ethinyl Est (11/27, ,) 1-20 mg-mcg per tablet Take 1 tablet by mouth once daily. Disp: Rfl: VELTIN gel Apply 1 application to affected area daily at bedtime. Disp: Rfl: HPR PLUS crea Apply 1 application to affected area once daily. Disp: Rfl: ipratropium bromide (ATROVENT) 42 mcg (0.06 %) nasal spray Use 2 Sprays in the nose four times daily. Use as directed. For up to (3) three weeks. (Patient not taking: Reported on 10/13/2018 ) Disp: 1 Bottle Rfl: 0 Norethin Wilmer-Eth Estrad-FE (./, ,) 1.5 mg-30 mcg (21)/75 mg (7) tablet Take 1 tablet by mouth once daily. Disp: Rfl: CALCIUM CARBONATE/VITAMIN D2 (LIQUID CALCIUM 600-VITAMIN D ORAL) Take by mouth once daily. Disp: Rfl: No current facility-administered medications for this visit. Review of Systems Constitutional: Negative for chills, diaphoresis, fever, malaise/fatigue and weight loss. HENT: Negative for congestion, ear pain, hearing loss, nosebleeds and sore throat. Eyes: Negative for blurred vision, double vision, pain and redness. Respiratory: Negative for cough, shortness of breath and wheezing. Cardiovascular: Positive for palpitations. Negative for chest pain, claudication and leg swelling. Gastrointestinal: Negative for abdominal pain, blood in stool, constipation, diarrhea, nausea and vomiting. Genitourinary: Negative for dysuria, frequency and hematuria. Musculoskeletal: Negative for falls, joint pain and myalgias. Skin: Negative for itching and rash. Neurological: Negative for dizziness, tingling, tremors, focal weakness and headaches. Endo/Heme/Allergies: Negative for polydipsia. Does not bruise/bleed easily. Psychiatric/Behavioral : Negative for depression, substance abuse and suicidal ideas. The patient is not nervous/anxious and does not have insomnia. BP 102/64 Pulse 56 Temp 96.4 Resp 17 Ht 5' 10.866 (1.80m) Wt 156 lb (70.8kg) LMP 10/11/2018 BMI 21.84 kg/(m2). Physical Exam Constitutional: She is oriented to person, place, and time and well-developed, well-nourished, and in no distress. No distress. HENT: Head: Normocephalic and atraumatic. Right Ear: Hearing, tympanic membrane, external ear and ear canal normal. Left Ear: Hearing, tympanic membrane, external ear and ear canal normal. Nose: Nose normal. Mouth/Throat: Oropharynx is clear and moist. Eyes: Pupils are equal, round, and reactive to light. Conjunctivae and EOM are normal. Neck: Normal range of motion. Neck supple. Carotid bruit is not present. No tracheal deviation present. No thyromegaly present. Cardiovascular: Normal rate, regular rhythm, normal heart sounds and intact distal pulses. Exam reveals no gallop and no friction rub. No murmur heard. Pulmonary/Chest: Effort normal and breath sounds normal. No respiratory distress. She has no wheezes. She has no rales. Abdominal: Soft. Bowel sounds are normal. She exhibits no distension and no mass. There is no tenderness. Lymphadenopathy: She has no cervical adenopathy. Neurological: She is alert and oriented to person, place, and time. Skin: Skin is warm and dry. She is not diaphoretic. Psychiatric: Mood, memory, affect and judgment normal. Vitals reviewed. New medication(s) prescribed today: None. Counseling completed in adopting health behaviors such as avoiding excessive alcohol use, avoid tobacco use, improve nutrition, and engage in physical activities. Copy of written care plan, clinical summary, treatment plan, new medications, goals, and self management requirements were given to patient. ASSESSMENT/PLAN: 1. Palpitations - ICD9: 785.1, ICD10: R00.2 (primary diagnosis) Reassurance given, likely PVCs related to caffeine and/or stress. Recommended labwork and working on decreasing caffeine intake. Call if worsens in frequency or severity - CBC + DIFF - MAGNESIUM BLD - VITAMIN D 25 HYDROXY - TSH BLD - VITAMIN B12 BLOOD - T4 FREE/FREE THYROX - COMP METABOLIC PANEL - ECG B/O W INTERP (MED OFFICE) 2. Fatigue, unspecified type - ICD9: 780.79, ICD10: R53.83 Check labwork - CBC + DIFF - MAGNESIUM BLD - VITAMIN D 25 HYDROXY - TSH BLD - VITAMIN B12 BLOOD - T4 FREE/FREE THYROX - COMP METABOLIC PANEL - ECG B/O W INTERP (MED OFFICE) 3. Eustachian tube dysfunction, bilateral - ICD9: 381.81, ICD10: H69.83 Recommended nasacort to help with fluid. 4. Low blood pressure reading - ICD9: 796.3, ICD10: R03.1 reassurance given. Sandy Dawn, DO Normal [facility] TSH, 3rd generationon 2017 TSH, 3rd generation <0.005 Low 0.358-3.740 [facility] Comment on above: Performed By: #### T SH3 #### [facility] [address] [address] Vitamin B12on 10-13-2018 Cobalamin (Vitamin B12) [Mass/Vol] 1058 pg/mL High [id number] [facility] Comment on above: Performed By: #### B 12 #### [facility] [address] [address] Vital Signs Date Time Vital Sign Value Performing Clinician Fidel winter 02-15-2025 08:35-0400 Body height 180.34 cm Yony Phan MD Work Phone: [facility] 02-15-2025 08:35-0400 Body mass index (BMI) [Ratio] 22.4 kg/m2 Yony Phan MD Work Phone: [facility] 02-15-2025 08:35-0400 Body weight 73.02 kg Yony Phan MD Work Phone: [facility] 02-15-2025 08:35-0400 Diastolic blood pressure 75 mm[Hg] Yony Phan MD Work Phone: [facility] 02-15-2025 08:35-0400 Heart rate 65 /min Yony Phan MD Work Phone: [facility] 02-15-2025 08:35-0400 SaO2% (BldA) [Mass fraction] 98 % Yony Phan MD Work Phone: [facility] 02-15-2025 08:35-0400 Systolic blood pressure 109 mm[Hg] Yony Phan MD Work Phone: [facility] 01-01-2025 09:05-0500 Body height 180.34 cm Yony Phan MD Work Phone: [facility] 01-01-2025 09:02-0500 Body mass index (BMI) [Ratio] 22.3 kg/m2 Yony Phan MD Work Phone: [facility] 01-01-2025 09:02-0500 Body weight 72.57 kg Yony Phan MD Work Phone: [facility] 01-01-2025 09:02-0500 Diastolic blood pressure 75 mm[Hg] Yony Phan MD Work Phone: [facility] 01-01-2025 09:02-0500 Systolic blood pressure 120 mm[Hg] Yony Phan MD Work Phone: [facility] 11-14-2024 09:02-0500 Body height 180.3 cm Jazmynera Argueta [employer]ISH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 Work Phone: [facility] 11-14-2024 09:02-0500 Body mass index (BMI) [Ratio] 22.32 kg/m2 Jazmyne Argueta [employer] FINISHER - 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 Work Phone: [facility] 11-14-2024 09:02-0500 Body weight 72.58 kg Jazmyne Argueta [employer] FINISHER - 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 Work Phone: [facility] 11-14-2024 09:02-0500 Diastolic blood pressure 78 mm[Hg] Jazmyne Argueta [employer] FINISHER - 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 Work Phone: [facility] 11-14-2024 09:02-0500 Heart rate 61 /min Jazmyne Argueta [employer]AR FINISHER - 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 Work Phone: [facility] 11-14-2024 09:02-0500 Systolic blood pressure 124 mm[Hg] Jazmyne Argueta [employer] FINISHER - 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 Work Phone: [facility] 11-06-2024 19:00-0500 Diastolic blood pressure 64 mm[Hg] Pedro Edwards MD Work Phone: [facility] 11-06-2024 19:00-0500 Heart rate 81 /min Pedro Edwards MD Work Phone: [facility] 11-06-2024 19:00-0500 SaO2% (BldA) [Mass fraction] 100 % Pedro Edwards MD Work Phone: [facility] 11-06-2024 19:00-0500 Systolic blood pressure 119 mm[Hg] Pedro Edwards MD Work Phone: [facility] 11-06-2024 17:45-0500 Body temperature 97 [degF] Pedro Edwards MD Work Phone: [facility] 11-06-2024 15:45-0500 Respiratory rate 14 /min Pedro Edwards MD Work Phone: [facility] 11-06-2024 11:44-0500 Body height 180.3 cm Pedro Edwards MD Work Phone: [facility] 11-06-2024 11:44-0500 Body mass index (BMI) [Ratio] 22.32 kg/m2 Pedro Edwards MD Work Phone: [facility] 11-06-2024 11:44-0500 Body weight 72.58 kg Pedro Edwards MD Work Phone: [facility] 10-30-2024 15:15-0500 Body height 180.3 cm Pedro Edwards MD Work Phone: [facility] 10-30-2024 15:15-0500 Body mass index (BMI) [Ratio] 22.45 kg/m2 Pedro Edwards MD Work Phone: [facility] 10-30-2024 15:15-0500 Body weight 73.03 kg Pedro Edwards MD Work Phone: [facility] 10-30-2024 15:15-0500 Diastolic blood pressure 85 mm[Hg] Pedro Edwards MD Work Phone: [facility] 10-30-2024 15:15-0500 Heart rate 62 /min Pedro Edwards MD Work Phone: [facility] 10-30-2024 15:15-0500 Systolic blood pressure 133 mm[Hg] Pedro Edwards MD Work Phone: [facility] 03-09-2024 08:36-0400 Body height 180.34 cm DO Nacho Ferrera Work Phone: [facility] 03-09-2024 08:36-0400 Body mass index (BMI) [Ratio] 22.3 kg/m2 DO Nacho Ferrera Work Phone: [facility] 03-09-2024 08:36-0400 Body temperature 97.5 [degF] DO Nacho Iban Work Phone: [facility] 03-09-2024 08:36-0400 Body weight 72.57 kg DO Nacho Iban Work Phone: [facility] 03-09-2024 08:36-0400 Diastolic blood pressure 69 mm[Hg] DO Nacho Iban Work Phone: [facility] 03-09-2024 08:36-0400 Heart rate 60 /min DO Nacho Iban Work Phone: [facility] 03-09-2024 08:36-0400 SaO2% (BldA) [Mass fraction] 98 % DO Nacho Iban Work Phone: [facility] 03-09-2024 08:36-0400 Systolic blood pressure 116 mm[Hg] DO Nacho Iban Work Phone: [facility] 12-29-2023 13:42-0500 Body mass index (BMI) [Ratio] 22.3 kg/m2 DO Nacho Iban Work Phone: [facility] 12-29-2023 13:42-0500 Body temperature 98.2 [degF] DO Nacho Iban Work Phone: [facility] 12-29-2023 13:42-0500 Body weight 72.57 kg DO Nacho Iban Work Phone: [facility] 12-29-2023 13:42-0500 Diastolic blood pressure 68 mm[Hg] DO Nacho Iban Work Phone: [facility] 12-29-2023 13:42-0500 Heart rate 74 /min DO Nacho Iban Work Phone: [facility] 12-29-2023 13:42-0500 SaO2% (BldA) [Mass fraction] 99 % DO Nacho Iban Work Phone: [facility] 12-29-2023 13:42-0500 Systolic blood pressure 104 mm[Hg] DO Nacho Iban Work Phone: [facility] 11-11-2023 08:06-0500 Body height 180.34 cm DO Nacho Iban Work Phone: [facility] 11-11-2023 08:06-0500 Body mass index (BMI) [Ratio] 22.6 kg/m2 DO Nacho Iban Work Phone: [facility] 11-11-2023 08:06-0500 Body weight 73.7 kg DO Nacho Iban Work Phone: [facility] 11-11-2023 08:06-0500 Diastolic blood pressure 70 mm[Hg] DO Nacho Iban Work Phone: [facility] 11-11-2023 08:06-0500 Systolic blood pressure 107 mm[Hg] DO Nacho Iban Work Phone: [facility] 09-09-2023 14:58-0400 Body height 180.34 cm DO Nacho Iban Work Phone: [facility] 09-09-2023 14:58-0400 Body mass index (BMI) [Ratio] 22.5 kg/m2 DO Nacho Iban Work Phone: [facility] 09-09-2023 14:58-0400 Body temperature 98 [degF] DO Nacho Iban Work Phone: [facility] 09-09-2023 14:58-0400 Body weight 73.19 kg DO Nacho Iban Work Phone: [facility] 09-09-2023 14:58-0400 Diastolic blood pressure 76 mm[Hg] DO Nacho Iban Work Phone: [facility] 09-09-2023 14:58-0400 Heart rate 80 /min DO Nacho Iban Work Phone: [facility] 09-09-2023 14:58-0400 Respiratory rate 16 /min DO Nacho Iban Work Phone: [facility] 09-09-2023 14:58-0400 SaO2% (BldA) [Mass fraction] 98 % DO Nacho Iban Work Phone: [facility] 09-09-2023 14:58-0400 Systolic blood pressure 128 mm[Hg] DO Nacho Iban Work Phone: [facility] 04-08-2023 08:01-0400 Body height 180.34 cm DO Nacho Iban Work Phone: [facility] 04-08-2023 08:01-0400 Body mass index (BMI) [Ratio] 22.1 kg/m2 DO Nacho Iban Work Phone: [facility] 04-08-2023 08:01-0400 Body temperature 98.4 [degF] DO Nacho Iban Work Phone: [facility] 04-08-2023 08:01-0400 Body weight 71.89 kg DO Nacho Iban Work Phone: [facility] 04-08-2023 08:01-0400 Diastolic blood pressure 66 mm[Hg] DO Nacho Iban Work Phone: [facility] 04-08-2023 08:01-0400 Heart rate 64 /min DO Nacho Iban Work Phone: [facility] 04-08-2023 08:01-0400 Respiratory rate 16 /min DO Nacho Iban Work Phone: [facility] 04-08-2023 08:01-0400 SaO2% (BldA) [Mass fraction] 98 % DO Nacho Iban Work Phone: [facility] 04-08-2023 08:01-0400 Systolic blood pressure 115 mm[Hg] DO Nacho Iban Work Phone: [facility] 10-08-2022 08:07-0500 Body height 180.34 cm No Primary Care Physician [facility] 10-08-2022 08:07-0500 Body mass index (BMI) [Ratio] 22.4 kg/m2 No Primary Care Physician [facility] 10-08-2022 08:07-0500 Body temperature 97.1 [degF] No Primary Care Physician [facility] 10-08-2022 08:07-0500 Body weight 72.8 kg No Primary Care Physician [facility] 10-08-2022 08:07-0500 Diastolic blood pressure 73 mm[Hg] No Primary Care Physician [facility] 10-08-2022 08:07-0500 Heart rate 56 /min No Primary Care Physician [facility] 10-08-2022 08:07-0500 Respiratory rate 18 /min No Primary Care Physician [facility] 10-08-2022 08:07-0500 SaO2% (BldA) [Mass fraction] 98 % No Primary Care Physician [facility] 10-08-2022 08:07-0500 Systolic blood pressure 116 mm[Hg] No Primary Care Physician [facility] 04-16-2022 08:07-0400 Body height 180.34 cm No Primary Care Physician [facility] Work Phone: 04-16-2022 08:07-0400 Body mass index (BMI) [Ratio] 21.6 kg/m2 No Primary Care Physician [facility] Work Phone: 04-16-2022 08:07-0400 Body temperature 97.2 [degF] No Primary Care Physician [facility] Work Phone: 04-16-2022 08:07-0400 Body weight 70.36 kg No Primary Care Physician [facility] Work Phone: 04-16-2022 08:07-0400 Diastolic blood pressure 70 mm[Hg] No Primary Care Physician [facility] Work Phone: 04-16-2022 08:07-0400 Heart rate 53 /min No Primary Care Physician [facility] Work Phone: 04-16-2022 08:07-0400 Respiratory rate 16 /min No Primary Care Physician [facility] Work Phone: 04-16-2022 08:07-0400 SaO2% (BldA) [Mass fraction] 99 % No Primary Care Physician [facility] Work Phone: 04-16-2022 08:07-0400 Systolic blood pressure 120 mm[Hg] No Primary Care Physician [facility] Work Phone: Encounters Encounter Date Encounter Type Care Provider Facility Start: 04-23-2025 End: 04-23-2025 ambulatory Dee Ruiz Glasgow DO Work Phone: Orthopaedics Start: 04-23-2025 End: 04-23-2025 Follow-up encounter Dee Glasgow DO Work Phone: Orthopaedics Comment on above: Follow up Start: 04-13-2025 End: 04-13-2025 ambulatory Yony Phan MD Work Phone: [facility] Work Phone: Start: 04-13-2025 End: 04-13-[address] Kirby Burrows MD -[facility] [place] Work Phone: Start: 04-13-2025 End: 04-13-2025 ambulatory Yony Phan Facility:[facility] Start: 03-28-2025 End: 03-28-2025 ambulatory Yony Phan MD Work Phone: [facility] Work Phone: Start: 03-28-2025 End: 03-28-2025 Patient encounter procedure Zuleyma GONZÁLES -[facility] [place] Work Phone: Start: 03-28-2025 End: 03-28-2025 ambulatory Zuleyma Shaffer Facility:[facility] Start: 03-23-2025 End: 03-23-2025 Patient encounter procedure Dee Ruiz Glasgow DO Work Phone: Orthopaedics Comment on above: Glenoid labral tear, right, initial encounter (Primary Dx); Tendinopathy of right rotator cuff Start: 03-23-2025 End: 03-23-2025 ambulatory NACHO FERRERA Facility:[facility] Start: 03-21-2025 End: 03-21-2025 E-mail encounter from caregiver Dee Glasgow MD Work Phone: Orthopaedics Start: 03-21-2025 End: 03-21-2025 Patient encounter procedure Dee Glasgow MD Work Phone: Orthopaedics Comment on above: Upcoming PRP appoint ment Start: 03-15-2025 End: 03-15-2025 ambulatory Yony Phan MD Work Phone: [facility] Work Phone: Start: 03-15-2025 End: 03-15-[address] Kirby Burrows MD -Laboratory, [place] Work Phone: Start: 03-15-2025 End: 03-15-2025 ambulatory Yony Phan Facility:[facility] Start: 02-15-2025 End: 02-15-[address] Kirby Burrows MD -[place] [facility] Work Phone: Start: 02-15-2025 End: 02-15-2025 ambulatory Yony Phan Facility:[facility] Start: 01-08-2025 End: 01-08-2025 ambulatory Yony Phan MD Work Phone: [facility] Work Phone: Start: 01-08-2025 End: 01-08-[address] Kirby Burrows MD -Laboratory, [place] Work Phone: Start: 01-08-2025 End: 01-08-2025 ambulatory Yony Emilie Facility:[facility] Start: 01-03-2025 End: 01-03-2025 ambulatory INNA BUSTILLOS DO Facility:[facility] Start: 01-03-2025 End: 01-03-2025 Patient encounter procedure INNA BUSTILLOS DO [facility] Start: 01-01-2025 End: 01-01-2025 Patient encounter procedure Earnestine GONZÁLES -[place] [facility] @ Start: 01-01-2025 End: 01-01-2025 Patient encounter status Earnestine GONZÁLES [facility] Start: 01-01-2025 End: 01-01-2025 ambulatory Chalon Emilie Facility:[facility] Start: 12-27-2024 End: 12-27-2024 ambulatory [facility] Start: 12-08-2024 End: 12-08-[address] Kirby Burrows MD -Laboratory, [place] Work Phone: Start: 12-08-2024 End: 12-08-2024 ambulatory [facility] Facility:[facility] Start: 11-14-2024 End: 11-14-2024 Telemedicine consultation with patient Dee D Glasgow DO Work Phone: Orthopaedics Start: 11-14-2024 End: 11-14-2024 ambulatory Dee D Glasgow DO Work Phone: Orthopaedics Comment on above: Glenoid labral tear, right, initial encounter (Primary Dx); Tendinopathy of right rotator cuff Start: 11-14-2024 End: 11-14-2024 Postop follow up visit related to original px Jazmyne Argueta GE[employer] FINISHER - 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 Work Phone: [facility] [place] Comment on above: Postop check (Primar y Dx) Start: 11-06-2024 End: 11-06-2024 ambulatory PEDRO EDWARDS [facility] Start: 11-06-2024 End: 11-06-2024 Subsequent hospital visit by physician Pedro Edwards MD Work Phone: [facility] Comment on above: Intra-abdominal and pelvic swelling, mass and lump, unspecified site Start: 11-03-2024 End: 11-03-2024 ambulatory PEDRO EDWARDS [facility] Start: 10-31-2024 End: 10-31-2024 ambulatory Dee D Glasgow DO Work Phone: Orthopaedics Start: 10-31-2024 End: 10-31-2024 Patient encounter procedure Dee Glasgow DO Work Phone: Orthopaedics Comment on above: Virtual appointment Start: 10-30-2024 End: 10-30-2024 ambulatory PEDRO EDWARDS [facility] Start: 10-30-2024 End: 10-30-2024 Office outpatient new 45 minutes Pedro Edwards MD Work Phone: [facility] [place] Comment on above: Ovarian mass (Primar y Dx); Mature cystic teratoma; Primary female infertility Start: 10-30-2024 End: 10-30-2024 ambulatory NACHO FERRERA Facility:[facility] Start: 10-30-2024 End: 10-30-2024 Subsequent hospital visit by physician [employer] [facility] (I-Stat/1.5t) Work Phone: Radiology Comment on above: Glenoid labral tear, right, initial encounter [S43.431A] Start: 10-23-2024 End: 10-23-2024 ambulatory Dee Glasgow DO Work Phone: Orthopaedics Comment on above: MRI Authorization Start: 10-18-2024 End: 10-18-2024 Patient encounter procedure Margaret Brambila RT(R) Radiology Comment on above: Glenoid labral tear, right, initial encounter (Primary Dx); Tendinopathy of right rotator cuff Start: 10-18-2024 End: 10-18-2024 ambulatory Margaret Brambila RT(R) Radiology Comment on above: Radiology XR Start: 10-18-2024 End: 10-18-2024 ambulatory Yony Phan Facility:[facility] Start: 10-13-2024 End: 10-13-2024 ambulatory [facility] Start: 10-03-2024 End: 10-03-2024 Orders Only Daniel Bourgeois MD Work Phone: Referring Physician Comment on above: Pain (Primary Dx) Start: 09-29-2024 End: 09-29-2024 ambulatory INNA BUSTILLOS DO Facility:[facility] Start: 09-29-2024 End: 09-29-2024 Patient encounter procedure INNA BUSTILLOS DO [facility] Start: 09-14-2024 End: 09-14-2024 ambulatory Chalon Emilie Facility:[facility] Start: 08-25-2024 End: 08-25-2024 ambulatory Chalon Emilie Facility:[facility] Start: 08-17-2024 End: 08-17-2024 ambulatory Chalon Emilie Facility:[facility] Start: 08-16-2024 End: 08-16-2024 ambulatory [facility] Start: 07-31-2024 End: 07-31-2024 ambulatory Chalon Emilie Facility:[facility] Start: 07-28-2024 End: 07-28-2024 ambulatory Chalon Emilie Facility:[facility] Start: 05-30-2024 End: 05-30-2024 ambulatory Chalon Emilie Facility:[facility] Start: 03-09-2024 End: 03-09-2024 Patient encounter procedure DO Nacho Ferrera Work Phone: [facility] [facility] Work Phone: Start: 03-08-2024 End: 03-08-2024 ambulatory DO Nacho Ferrera Work Phone: [facility] Work Phone: Start: 03-08-2024 End: 03-08-2024 Patient encounter procedure DO Nacho Ferrera Work Phone: [facility] Work Phone: Start: 01-27-2024 End: 02-01-2024 ambulatory NACHO FERRERA DO Facility:B Start: 01-27-2024 End: 01-31-[address] TINO CHRISTIANSON MD [facility] Start: 12-29-2023 End: 12-29-2023 Patient encounter procedure DO Nacho Ferrera Work Phone: [facility] Work Phone: Start: 11-11-2023 End: 11-11-2023 ambulatory DO Nacho Ferrera Work Phone: [facility] Work Phone: Start: 11-11-2023 End: 11-11-2023 Patient encounter procedure DO [facility] Work [facility] Start: 11-11-2023 End: 11-11-2023 Patient encounter procedure DO Nacho Ferrera Work Phone: [facility] Start: 10-13-2023 End: 10-13-2023 ambulatory DO Nacho Ferrera Work Phone: [facility] Work Phone: Start: 10-13-2023 End: 10-13-2023 Patient encounter procedure DO Nacho Ferrera Work Phone: [facility]Laboratory Work Phone: Start: 09-10-2023 End: 09-10-2023 ambulatory DO Nacho Ferrera Work Phone: [facility] Work Phone: Start: 09-10-2023 End: 09-10-2023 Patient encounter procedure DO Nacho Nugenter Work Phone: [facility]Ultrasound, [facility] Work Phone: Start: 09-09-2023 End: 09-09-2023 Patient encounter procedure DO Nacho Nugenter Work Phone: [facility] Work Phone: Start: 07-13-2023 End: 07-13-2023 ambulatory DO Nacho Ferrera Work Phone: [facility] Work Phone: Start: 07-13-2023 End: 07-13-2023 Patient encounter procedure DO Nacho Ferrera Work Phone: [facility]-Outpatient Bone Densitometry Work Phone: Start: 05-21-2023 End: 05-21-2023 ambulatory Va Beasley MD Work Phone: Endocrinology Comment on above: Graves disease (Prim brennan Dx); Celiac disease Start: 05-21-2023 End: 05-21-2023 Telemedicine consultation with patient Va Beasley MD Work Phone: [facility] Start: 04-08-2023 End: 04-08-2023 ambulatory DO Nacho Ferrera Work Phone: [facility] Work Phone: Start: 04-08-2023 End: 04-08-2023 Patient encounter procedure DO Nacho Ferrera Work Phone: [facility] Start: 03-05-2023 End: 03-05-2023 ambulatory [facility] Work Phone: Start: 03-05-2023 End: 03-05-2023 Patient encounter procedure [facility] Start: 12-22-2022 End: 12-22-2022 ambulatory No Primary Care Physician [facility] Work Phone: Start: 12-22-2022 End: 12-22-2022 Patient encounter procedure No Primary Care Physician [facility] Start: 10-15-2022 End: 10-15-2022 ambulatory No Primary Care Physician [facility] Work Phone: Start: 10-15-2022 End: 10-15-2022 Patient encounter procedure No Primary Care Physician [facility] Start: 10-08-2022 End: 10-08-2022 Patient encounter procedure No Primary Care Physician [facility] Endocrinology Start: 09-22-2022 End: 09-22-2022 ambulatory [facility] Work Phone: Start: 09-22-2022 End: 09-22-2022 Patient encounter procedure [facility] Start: 09-02-2022 End: 09-02-2022 ambulatory [facility] Work Phone: Start: 09-02-2022 End: 09-02-2022 Patient encounter procedure [facility] Start: 07-08-2022 End: 07-08-2022 ambulatory No Primary Care Physician [facility] Work Phone: Start: 07-08-2022 End: 07-08-2022 Patient encounter procedure No Primary Care Physician [facility] Start: 04-16-2022 End: 04-16-2022 Patient encounter procedure No Primary Care Physician [facility] Endocrinology Procedures Date Procedure Procedure Detail Performing Clinician Start: 03-23-2025 Njx pltlt plasma w/i mg harvest/preparation Dee Glasgow DO Work Phone: Start: 03-23-2025 Arthrocentesis aspir &/inj major jt/bursa w/us Dee Glasgow DO Work Phone: Start: 11-06-2024 End: 11-06-2024 Ovarian cystectomy uni/bi Pedro Antoine MD Work Phone: Start: 11-06-2024 Urine test visual color cmprsn meths Bety N [place] 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 FINISHER - 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 Work Phone: Start: 10-30-2024 Mri any jt upper ext remity w/o contrast matrl Dee Glasgow DO Work Phone: Start: 09-10-2023 US scan of thyroid DO Jim Ferrera Work Phone: Start: 07-13-2023 Dual energy X-ray absorptiometry DO Nacho Ferrera Work Phone: Start: 12-22-2022 MRI of lumbar spine No Primary Care Physician Plan of Treatment Date Care Activity Detail Author Start: 2061 RSV Immunization for Adults (1 - 1-dose 75+ series) RSV Immunization for Adults (1 - 1-dose 75+ series) [facility] Start: 2036 Zoster Vaccines (1 of 2) Zoster Vaccines (1 of 2) [facility] Start: 04-17-2029 DTaP/Tdap/Td Vaccines (7 - Td or Tdap) DTaP/Tdap/Td Vaccines (7 - Td or Tdap) [facility] Start: 04-17-2029 Urine microalbumin profile [facility] Start: 07-09-2025 Influenza vaccination Influenza Vaccine (Season Ended) [facility] Start: 03-23-2025 End: 03-23-2025 Patient encounter procedure 03/23/2025 11:30 AM EDT Office Visit Orthopaedics [address] [place] [address] eDe Glasgow, DO [address] [place] [address] PRP INJECTION - RIGHT SHOULDER Orthopaedics Comment on above: PRP INJECTION - RIGHT SHOULDER Start: 11-14-2024 End: 11-14-2024 Follow-up encounter 11/14/2024 1:30 PM [facility] [address] [place] [address] Dee Glasgow, DO [address] [place] [address] Follow up left shoulder/MRI results Orthopaedics Comment on above: Follow up left shoulder/MRI results Start: 11-14-2024 End: 11-14-2024 Patient encounter procedure 11/14/2024 9:00 AM EST Office Visit [facility] Gynecologic Oncology - [place] [address] [place] [id number] Jazmyne Argueta APRN - [place] [address] [place] [address] [facility]necologic Oncology - [place] Start: 11-06-2024 End: 11-06-2024 Admission to same day surgery center 11/06/2024 1:30 PM EST - 11/06/2024 2:30 PM EST Surgery [facility] MA[facility] OR [address] [place] [phone] Pedro Edwards MD [address] [address] LAPAROSCOPIC OVARIAN CYSTECTOMY [39538 (CPT )] [facility] Comment on above: LAPAROSCOPIC OVARIAN CYSTECTOMY [73332 ( CPT )] Start: 11-06-2024 End: 11-06-2024 Anesthesia consultation 11/06/2024 1:30 PM EST Anesthesia Event [facility] [address] [place] [phone] Bety Ayon, GEAR FINISHER - 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 [address] [address] [facility] Start: 11-06-2024 End: 11-06-2024 Ovarian cystectomy uni/bi OVARIAN CYSTECTOMY Intra-abdominal and pelvic swelling, mass and lump, unspecified site 11/06/2024 1:30 PM EST [facility] Operating Room Start: 11-06-2024 Subsequent hospital visit by physician 11/06/2024 1:30 PM EST Hospital Encounter [facility] [address] [place] [phone] Pedro Edwards MD [address] [address] [facility] Start: 10-30-2024 End: 10-30-2024 Patient encounter procedure 10/30/2024 7:30 AM EST Appointment Radiology [address] [place] [address] Right shoulder Radiology Comment on above: Right shoulder Start: 10-19-2024 End: 10-19-2024 Patient encounter procedure Radiology Comment on above: xr shoulder Labral tear Start: 09-01-2024 Covid-19 Vaccine ( season) Covid-19 Vaccine ( season) [facility] Start: 07-09-2024 Influenza vaccination Influenza Vaccine (#1) [facility] Start: 11-11-2023 Liquid based cervical cytology screening [facility] Start: 07-09-2023 Influenza vaccination INFLUENZA (#1) [facility] Start: 05-21-2023 End: 07-21-2023 THYROID STIMULATING IMMUNOGLOBULIN BLOOD THYROID STIMULATING IMMUNOGLOBULIN BLOOD Lab Routine Graves disease Expected: 05/21/2023, Expires: 07/21/2023 [facility] Work Phone: Comment on above: Expected: 05/21/2023, Expires: 3 Start: 05-21-2023 End: 07-21-2023 Thyrotropin [Units/volume] in Serum or Plasma TSH BLD Lab Routine Graves disease Expected: 05/21/2023, Expires: 07/21/2023 [facility] Work Phone: Comment on above: Expected: 05/21/2023, Expires: 3 Start: 05-21-2023 End: 07-21-2023 Thyroxine (T4) free [Mass/volume] in Serum or Plasma T4 FREE/FREE THYROX Lab Routine Graves disease Expected: 05/21/2023, Expires: 07/21/2023 [facility] Work Phone: Comment on above: Expected: 05/21/2023, Expires: 3 Start: 05-21-2023 End: 07-21-2023 Triiodothyronine (T3) Free [Mass/volume] in Serum or Plasma T3 FREE BLD Lab Routine Graves disease Expected: 05/21/2023, Expires: 07/21/2023 [facility] Work Phone: Comment on above: Expected: 05/21/2023, Expires: 3 Start: 11-08-2022 DEPRESSION ASSESSMENT DEPRESSION ASSESSMENT [facility] Start: 09-02-2022 COVID-19 VACCINE (4 - Moderna series) COVID-19 VACCINE (4 - Moderna series) [facility] Start: 01-06-2019 PAP TESTING PAP TESTING [facility] Start: 01-06-2017 Screening for malignant neoplasm of cervix Cervical Cancer Screening [facility] Start: 2016 HPV TESTING HPV TESTING [facility] Start: 2016 Screening for malignant neoplasm of cervix [facility] Start: 2007 Screening for malignant neoplasm of cervix Pap Smear [facility] Start: 2004 Anxiety Screening Anxiety Screening [facility] Start: 2004 Depression Screening Depression Screening [facility] Start: 2004 HEPATITIS C SCREENING HEPATITIS C SCREENING [facility] Start: 2004 Hepatitis C screening Hepatitis C Screening [facility] Start: 2004 HIV SCREENING HIV SCREENING [facility] Start: 2004 HIV screening HIV Screening [facility] Start: 1999 Varicella vaccination Varicella Vaccines (1 of 2 - 13+ 2-dose series) [facility] Start: 1998 Depression Screening Depression Screening [facility] Start: 1986 HEPATITIS B (1 of 3 - 3-dose series) HEPATITIS B (1 of 3 - 3-dose series) [facility] Start: 1986 HIV screening HIV Screening [facility] Start: 1986 Thyroid stimulating hormone measurement TSH Level [facility] End: 11-17-2025 MR Shoulder - right WO contrast MRI SHOULDER WO IVCON RIGHT Radiology Routine Glenoid labral tear, right, initial encounter Tendinopathy of right rotator cuff 1 Occurrences starting 10/18/2024 until 11/17/2025 [facility] Work Phone: Comment on above: 1 Occurrences starting 10/18/2024 until 11/17/2025 Non-Gynecologic Cytology [facility] Work Phone: Comment on above: Release Upon Ordering for 1 Occurrences starting 11/06/2024 Path report.final Dx Spec [facility] T4 free measurement [facility] Thyroid stimulating hormone measurement [facility] Tissue exam [facility] Comment on above: Release Upon Ordering for 1 Occurrences starting 11/06/2024 Triiodothyronine, fr ee measurement [facility] End: 11-02-2025 XR Shoulder - left 3 Views XR SHOULDER GENERAL 3V OR MORE AP/TRUE AP/OTHER LEFT Radiology Routine Pain 1 Occurrences starting 10/03/2024 until 11/02/2025 [facility] Work Phone: Comment on above: 1 Occurrences starting 10/03/2024 until 11/02/2025 End: 11-02-2025 XR Shoulder - right 3 Views XR SHOULDER GENERAL 3V OR MORE AP/TRUE AP/OTHER RIGHT Radiology Routine Pain 1 Occurrences starting 10/03/2024 until 11/02/2025 [facility] Comment on above: 1 Occurrences starting 10/03/2024 until 11/02/2025 [facility] Immunizations Immunization Date Immunization Notes Care Provider Fa beth 04-17-2019 tetanus toxoid, redu shonna diphtheria toxoid, and acellular pertussis vaccine, adsorbed Va Beasley MD Work Phone: [facility] 10-13-2018 influenza virus vacc ine, unspecified formulation Daniel Bourgeois MD Work Phone: [facility] Payers Date Payer Category Payer Commercial [facility] [employer] [id number] 2024 Private Health Insurance [id number] 2024 Self-pay [id number] 2023 Unknown [id number] 2022 Unknown [id number]. [id number] 1986 Unknown [id number] 2.840.1.152605.3.579.2. 627 1986 Unknown [id number] 2..840.1.421287.3.579.2. 627 1986 Unknown [id number] 2.16.840.1.549026.3.579.2. 651 1986 Unknown [id number] 2.840.1.492449.3.579.2. 651 1986 Unknown [id number] 2.840.1.592816.3.579.2. 479 1986 Unknown [id number] .0.1.088377.3.579.2. 627 Unknown [facility] [id number] Unknown [employer] [id number] Unknown [facility] PACKAGE PLAN . [id number] Unknown [employer] [id number] Unknown [id number] 840.1.739603.3.579.2. 462 Unknown [id number] 12.24.830.1.777013.3.579.2. 462 Unknown [id number] .840.1.179184.3.579.2. 462 Unknown [id number] .840.1.385572.3.579.2. 462 Unknown [id number] 2.840.1.070247.3.579.2. 462 Unknown [id number] 2.840.1.985510.3.579.2. 462 Unknown [id number] .840.1.333331.3.579.2. 462 Unknown [id number] 2.16.840.1.558567.3.579.2. 462 Unknown [id number] 2.16.840.1.357239.3.579.2. 462 Unknown [id number] 2.16.840.1.300644.3.579.2. 462 Unknown [id number] 2.16.840.1.398758.3.579.2. 462 Unknown [id number] 2.16.840.1.915376.3.579.2. 462 Unknown [id number] 2.16.840.1.582219.3.579.2. 462 Unknown [id number] 2.16.840.1.986758.3.579.2. 462 Social History Date Type Detail Facility Start: 04-16-2022 End: 12-29-2023 Tobacco smoking status MDIS Unknown if ever smoked [facility] Start: 1985 Sex Assigned At Female W [facility] Start: 11-19-2015 End: 01-01-2025 Tobacco smoking status MDIS Never smoked tobacco [facility] Start: 11-19-2015 End: 11-03-2024 Tobacco use and exposure Smokeless tobacco non-user [facility] Start: 08-05-2021 End: 11-06-2024 Alcohol intake Current drinker of alcohol (finding) [facility] Start: 08-05-2021 End: 05-06-2023 History of Social function [facility] Start: 08-05-2021 End: 05-06-2023 Tobacco use panel [facility] Adult Depression Screening Assessment 0 [facility] Start: 1985 Sex Assigned At Not on file [facility] Start: 06-08-2022 End: 01-19-2025 Sex Female (finding) [facility] Clinical Notes 05-21-2023 to 03-23-2025 Dee Glasgow DO - 03/23/2025 2:14 PM EDT Note Date & Type Note Facility 03-23-2025 Note HNO ID: [id number] Author: DEE GLASGOW DO Service: ? Author Type: Physician Type: Progress Notes Filed: 03/23/2025 14:15 Note Text: Patient presents for a right shoulder PRP injection. Biologics Injection: R shoulder 03/23/2025 2:14 PM The procedure site was prepped in the usual sterile fashion. Previously completed treatments/injections: Platelet Rich Plasma Site: R shoulder PRP Device/Protocol: Emcyte LP-PRP Right PRP injected: 5ml Total injected: 5ml Details:Guidance: Ultrasound Musculoskeletal ultrasound was utilized to successfully localize placement of the injection needle at the appropriate site. Ultrasound images demonstrating local vasculature and demonstrating injection of solution were saved. Outcome: Tolerated well, no immediate complications Post-injection instructions were reviewed with the patient and the patient voiced understanding of these instructions. Informed Consent Consent Obtained: Written Joy Protocol A moment to CARE was completed. SIGN IN Personnel directly involved with the procedure wore the appropriate PPE. Special Equipment: N/A Patient/Surrogate Stated/Verified: Intended procedure, Date of , Patient name and Relevant allergies TIME OUT Relevant labs, photos, and/or imaging studies have been reviewed. Intended patient and procedure match source documents. Consent obtained and matches the intended procedure. Correct side/site marked and visible. Medications required for procedure verified. No fire risk assessment and interventions applicable. No implant(s) inserted. SIGN OUT No specimen collected. All instruments, equipment, possible retained foreign bodies accounted for. The post-procedure POC has been communicated to the patient or surrogate. No post-procedure POC communication to the patient's multidisciplinary team (including the bedside nurse for hospitalized patients) applicable. (S43.431A) Glenoid labral tear, right, initial encounter (primary encounter diagnosis) (M67.911) Tendinopathy of right rotator cuff Dee Glasgow DO 03/23/2025 [facility] 03-23-2025 History of Present illness Narrative Associated Order(s): Biologics Injection: R shoulder Post-Procedure Diagnose(s): Glenoid labral tear, right, initial encounter; Tendinopathy of right rotator cuff Patient presents for a right shoulder PRP injection. Biologics Injection: R shoulder 03/23/2025 2:14 PM The procedure site was prepped in the usual sterile fashion. Previously completed treatments/injections: Platelet Rich Plasma Site: R shoulder PRP Device/Protocol: Emcyte LP-PRP Right PRP injected: 5ml Total injected: 5ml Details:Guidance: Ultrasound Musculoskeletal ultrasound was utilized to successfully localize placement of the injection needle at the appropriate site. Ultrasound images demonstrating local vasculature and demonstrating injection of solution were saved. Outcome: Tolerated well, no immediate complications Post-injection instructions were reviewed with the patient and the patient voiced understanding of these instructions. Informed Consent Consent Obtained: Written Joy Protocol A moment to CARE was completed. SIGN IN Personnel directly involved with the procedure wore the appropriate PPE. Special Equipment: N/A Patient/Surrogate Stated/Verified: Intended procedure, Date of , Patient name and Relevant allergies TIME OUT Relevant labs, photos, and/or imaging studies have been reviewed. Intended patient and procedure match source documents. Consent obtained and matches the intended procedure. Correct side/site marked and visible. Medications required for procedure verified. No fire risk assessment and interventions applicable. No implant(s) inserted. SIGN OUT No specimen collected. All instruments, equipment, possible retained foreign bodies accounted for. The post-procedure POC has been communicated to the patient or surrogate. No post-procedure POC communication to the patient's multidisciplinary team (including the bedside nurse for hospitalized patients) applicable. (S43.431A) Glenoid labral tear, right, initial encounter (primary encounter diagnosis) (M67.911) Tendinopathy of right rotator cuff Dee Glasgow DO 03/23/2025 documented in this encounter [facility] 01-03-2025 Evaluation + Plan note Diagnostic Tests PendingAnti-Mullerian Hormone (AMH) 01/03/25 [facility] 01-01-2025 Evaluation note Diagnosis Onset Date Resolution Infertility acute December 8:49am Encounter for routine gynecological examination noneactive January 01 8:49am [facility] Work Phone: 1(947) 950-239502-24-2025 Evaluation note* Diagnosis Onset Date Resolution Status Admit Date Infertility acute December 8:49am Encounter for routine gynecological examination noneactive 2024 8:49am 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 Author Type: Physician Type: Progress Notes Filed: 11/14/2024 13:52 Note Text: MUSCULOSKELETAL DISTANCE HEALTH VIRTUAL VISIT DOCUMENTATION NOTE This virtual visit was performed via video enabled technology, and the patient provided consent to be evaluated and managed using this virtual visit and video enabled technology. Distance Health Platform: bluepulse CHIEF COMPLAINT (CC): Ritika Vega is a 38 year old female is presenting for this distance health encounter for the following reason: follow-up of the right shoulder HISTORY OF PRESENT ILLNESS (HPI): Follow-up of the right shoulder MRI: IMPRESSION: Mild supraspinatus tendinosis with a low-grade partial-thickness tear. No high-grade or full-thickness rotator cuff tendon tear is identified. Possible superior glenoid labral tear. Location of pain: right shoulder No changes in symptoms ALLERGIES No Known Allergies PAST MEDICAL HISTORY Diagnosis Date B12 deficiency Celiac disease Biopsy proven Eating disorder history of age 21-28. purging then restricting/ compulsive exercising Graves disease 10/2018 Current Outpatient Medications on File Prior to Visit Medication Sig cetirizine HCl (ZYRTEC ORAL) Take by mouth. metHIMazole (TAPAZOLE) 10 mg tablet Take 1 tablet by mouth once daily. budesonide (RHINOCORT NASAL) Use in the nose once daily. cyanocobalamin (VITAMIN B-12) 1,000 mcg tab Take 1,000 mcg by mouth once daily. Norethindrone Acet-Ethinyl Est (JUNEL 11/27, ,) 1-20 mg-mcg per tablet Take 1 tablet by mouth once daily. SULFACLEANSE 8-4 8-4 % susp Apply 1 application to affected area once daily. OMEGA-3 FATTY ACIDS/FISH OIL (OMEGA 3 FISH OIL ORAL) Take 1,200 mg by mouth once daily. No current facility-administered medications on file prior to visit. EXAMINATION: This examination was performed via video enabled technology. Patient does not appear to be in any acute distress Patient is alert and oriented with normal affect ASSESSMENT: (S43.431A) Glenoid labral tear, right, initial encounter (primary encounter diagnosis) (M67.911) Tendinopathy of right rotator cuff PLAN: Discussed the treatment option of PRP for the right shoulder. She understands that this is out of pocket We discussed the etiology of the patient's condition in detail today. Given the failure of conservative treatments to provide sufficient relief, we have decided to proceed with a protocol of platelet rich plasma (PRP) injections. The patient has been made aware of the entire process of the PRP procedure, including collection, preparation, administration, and ultrasound guidance of the PRP injection. The patient has voiced understanding that she may require 1 to 3 injections of PRP given at separate visits to attempt to provide relief from this condition. The patient has voiced understanding that PRP is not routinely covered by insurance, and if there is no insurance coverage for this procedure, the patient would be responsible for the cost of the procedure at the time of service. The patient has voiced understanding that a PRP injection is not currently an approved procedure by the FDA. The patient has voiced understand that she will stop taking any antiinflammatory medications 5 days prior to the procedure. The patient has voiced understanding that she would need to sign an informed consent detailing the above information on the day of the procedure. Given this, the patient will take some time to consider this intervention. The patient will contact us with any additional questions, or to schedule an appointment if desired. Detailed instructions were reviewed with the patient and all questions were answered in detail. We discussed reasons for emergent need to refer to seek care in an Emergency Department. We discussed red flags associated with this condition and emergent treatment if they present. Patient voiced understanding and compliance with the above plan. [facility] History of Present illness Narrative* Dee Glasgow, DO - 11/14/2024 1:44 PM EST [facility]OSKELETAL DISTANCE HEALTH VIRTUAL VISIT DOCUMENTATION NOTE This virtual visit was performed via video enabled technology, and the patient provided consent to be evaluated and managed using this virtual visit and video enabled technology. [employer] Health Platform: bluepulse CHIEF COMPLAINT (CC): Ritika Vega is a 38 year old female is presenting for this distance health encounter for the following reason: follow-up of the right shoulder HISTORY OF PRESENT ILLNESS (HPI): Follow-up of the right shoulder MRI: IMPRESSION: Mild supraspinatus tendinosis with a low-grade partial-thickness tear. No high-grade or full-thickness rotator cuff tendon tear is identified. Possible superior glenoid labral tear. Location of pain: right shoulder No changes in symptoms ALLERGIES No Known Allergies PAST MEDICAL HISTORY Diagnosis Date B12 deficiency Celiac disease Biopsy proven Eating disorder history of age 21-27. purging then restricting/ compulsive exercising Graves disease 10/2018 Current Outpatient Medications on File Prior to Visit Medication Sig cetirizine HCl (ZYRTEC ORAL) Take by mouth. metHIMazole (TAPAZOLE) 10 mg tablet Take 1 tablet by mouth once daily. budesonide (RHINOCORT NASAL) Use in the nose once daily. cyanocobalamin (VITAMIN B-12) 1,000 mcg tab Take 1,000 mcg by mouth once daily. Norethindrone Acet-Ethinyl Est (JUNE11/27, ,) 1-20 mg-mcg per tablet Take 1 tablet by mouth oncedaily. SULFACLEANSE 8-4 8-4 % susp Apply 1 application to affected area once daily. OMEGA-3 FATTY ACIDS/FISH OIL (OMEGA 3 FISH OIL ORAL) Take 1,200 mg by mouth once daily. No current facility-administered medications on file prior to visit. EXAMINATION: This examination was performed via video enabled technology. Patient does not appear to be in any acute distress Patient is alert and oriented with normal affect ASSESSMENT: (S43.431A) Glenoid labral tear, right, initial encounter (primary encounter diagnosis) (M67.911) Tendinopathy of right rotator cuff PLAN: Discussed the treatment option of PRP for the right shoulder. She understands that this is out of pocket We discussed the etiology of the patient's condition in detail today. Given the failure of conservative treatments to provide sufficient relief, we have decided to proceed with a protocol of plateletrich plasma (PRP) injections. The patient has been made aware of the entire process of the PRP procedure, including collection, preparation, administration, and ultrasound guidance of the PRP injection. The patient has voiced understanding that she may require 1 to 3 injections of PRP given at separate visits to attempt to provide relief from this condition. The patient has voiced understanding that PRP is not routinely covered by insurance, and if there is no insurance coverage for this procedure, the patient would be responsible for the cost of the procedure at the time of service. The patient has voiced understanding that a PRP injection is not currently an approved procedure by the FDA.The patient has voiced understand that she will stop taking any antiinflammatory medications 5 daysprior to the procedure. The patient has voiced understanding that she would need to sign an informed consent detailing the above information on the day of the procedure. Given this, the patient will take some time to consider this intervention. The patient will contact us with any additional questions, or to schedule an appointment if desired. Detailed instructions were reviewed with the patient and all questions were answered in detail. We discussed reasons for emergent need to refer to seek care in an Emergency Department. We discussed red flags associated with this condition and emergent treatment if they present. Patient voiced understanding and compliance with the above plan. Dee Glasgow DO [facility] History of Present illness Narrative* Jazmyne Argueta APRN - 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 - 11/14/2024 9:00 AM EST GYNECOLOGIC ONCOLOGY - FOLLOW-UP VISIT CHIEF COMPLAINT/PUPROSE OF VISIT: Ritika Vega is a 38 y.o. female 1 week s/p LAPAROSCOPIC OVARIAN CYSTECTOMY. INTERVAL HISTORY: Overall doing well since surgery. 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 She is having some discomfort at the umbilical incision. Denies signifcant pain, bleeding. Tolerating regular diet, denies N/V. Denies issues with BM or urination. ECOG PS 0 ROS: 12 point review of systems performed, pertinent items are noted in HPI; all other review of systemswere negative. MEDICATIONS: Current Outpatient Medications Medication Sig Dispense Refill ibuprofen 600 MG tablet Take 1 tablet (600 mg) by mouth every 6 hours as needed for mild pain (1-3)for up to 10 days. 30 tablet 0 MAGNESIUM PO Take 240 mg by mouth daily. Acworth-3 Fatty Acids (Fish Oil) 1000 MG capsule delayed-release Take by mouth daily. Vit-Fe Fumarate-FA ( PO) Take by mouth. Probiotic Product (PROBIOTIC PO) Take by mouth. propylthiouracil (PTU) 50 MG tablet Take 50 mg by mouth 1 (one) time. acetaminophen (Tylenol) 325 MG tablet Take 2 tablets (650 mg) by mouth every 6 hours as needed for mild pain (1-3) for up to 10 days. (Patient not taking: Reported on 11/14/2024) 30 tablet 0 docusate sodium (Colace) 100 MG capsule Take 1 capsule (100 mg) by mouth 2 times daily for 10 days.(Patient not taking: Reported on 11/14/2024) 20 capsule 0 Glucosamine HCl (GLUCOSAMINE PO) Take 500 mg by mouth daily. ibuprofen 200 MG tablet Take 400 mg by mouth every 8 hours as needed for mild pain (1-3). (Patient not taking: Reported on 11/14/2024) No current facility-administered medications for this visit. VITAL SIGNS: Blood pressure 124/78, pulse 61, height 1.803 m (5' 11), weight 72.6 kg (160 lb), last menstrual period 10/17/2024. No data recorded PHYSICAL EXAM: General: Alert and oriented. in no acute distress. Able to ambulate on and off the exam table without difficulty. Heart: Regular rate Lungs: Easy respirations Abdomen: Soft, Non-tender, non-distended. Skin: No significant rashes, petechia or purpura. Well healed surgical incisions without erythema, induration, or drainage. Bruising around umbilical incision. Extremities: No cyanosis, clubbing, or edema Mental: Mood and affect appropriate for situation Pelvis: Def DIAGNOSTICS: I reviewed the imaging studies and agree with the interpretation as recorded. I reviewed the pertinent laboratory and diagnostic data. ASSESSMENT/PLAN: - Doing well post-op - Reviewed final pathology, benign - Continue restrictions until 4 weeks postoperative - Follow-up with Dr. Bustillos and with primary return checker for routine care. I explained diagnosis and treatment plan; patient expressed understanding and was in agreement withthe plan. ONESIMO Lynn CNP documented in this [facility]12-30-2024 Miscellaneous Notes* Post- Procedure Note - Marielle Hair RN - 11/06/2024 7:10 PM EST Patient feeling better after IM Ephedrine injection. Ambulated and ready to be discharged * Post-Procedure Note - Marielle Hair RN - 11/06/2024 6:38 PM EST Per previous nursing note, patient was unable to stand due to nausea. She was placed back in bed with phase 2 monitoring with lights out to sleep. Family at bedside and call light within reach. Anesthesia paged for order of Ephedrine IM to help with nausea/vomiting. Patient states that every time she moves her head she gets really nauseated. Upon sitting on the side of bed, then upon standing, patient vomited. * Post-Procedure Note - Marielle Hair RN - 11/06/2024 5:47 PM EST Patient states she is feeling better. We will attempt to ambulate to restroom * Post-Procedure Note - Marielle Hair RN - 11/06/2024 4:45 PM EST Discharge information given to the patient. Patient and family verbalized understanding of information. All questions were answered at this time. Patient denies dizziness. Vital signs are stable. * Perioperative Nursing Note - Michelle Dick RN - 11/06/2024 3:35 PM EST Family/visitor at bedside with patient. * Brief Op Note - Pedro Edwards MD - 11/06/2024 1:11 PM EST Date: 11/06/2024 Location: [facility] OR Name: Ritika Vega, : 1985, Diagnosis Pre-op Diagnosis * Intra-abdominal and pelvic swelling, mass and lump, unspecified site [R19.00] Post-op Diagnosis * Intra-abdominal and pelvic swelling, mass and lump, unspecified site [R19.00] Procedures LAPAROSCOPIC OVARIAN CYSTECTOMY 97801 - NM OVARIAN CYSTECTOMY UNI/BI Surgeons * Pedro Edwards - Primary Procedure Summary Anesthesia: General ASA: II Estimated Blood Loss: 20 mL Drains: Urethral Catheter (Active) Specimens ID Source Type Tests Collected By Collected At Frozen? Priority Lab ID 1 Peritoneal Washings Wash NON-GYNECOLOGIC CYTOLOGY Pedro Edwards MD 11/06/24 1340 Description: PELVIC WASHINGS 2 Ovary, Right Tissue TISSUE EXAM Pedro Edwards MD 11/06/24 1409 Description: RIGHT OVARIAN CYST Staff: Buyer Planner: Angelina Clifton RN; Evelia Beasley RN Scrub Person: Dread Preciado Findings: Enlarged right ovary with a smooth ovarian surface. There were two separate cystic areas.One was clinically consistent with a mature cystic teratoma. The other consistent with a simple benign ovarian cyst. The left tube and ovary were grossly normal in appearance. The right tube was normal in appearance as was the uterine serosa. The upper abdomen including bilateral hemidiaphragms, liver capsule, stomach and omentum were normal in appearance. Complications: None apparent; patient tolerated the procedure well. Specimens Collected: Order Name Source Comment Collection Info Order Time HCG QUALITATIVE URINE Urine, Clean Catch Discontinue this order if: 1. patient is older than 55 years old 2. has had a prior hysterectomy 3. today's surgery is for treatment of known or suspected ectopic or loss. 4. patient has a known intrauterine but this is a needed surgery. 11/06/2024 11:55 AM POTASSIUM WITH MG REFLEX For patients on dialysis to draw potassium day of surgery 11/06/2024 11:55AM PROTHROMBIN TIME If patient on coumadin within 4 days prior. 11/06/2024 11:55 AM NON-GYNECOLOGIC CYTOLOGY Peritoneal Washings Pre-op diagnosis: Intra-abdominal and pelvic swelling, mass and lump, unspecified site [R19.00] Collected By: Pedro Fernando MD 11/06/2024 1:40 PM TISSUE EXAM Ovary, Right Pre-op diagnosis: Intra-abdominal and pelvic swelling, mass and lump, unspecified site [R19.00] Collected By: Pedro Fernando MD 11/06/2024 2:09 PM Wound Class: Class I: Clean Blood Products: None Prophylactic Antibiotics: Pre-operative antibiotics were not given because antibiotics are not indicated for this procedure. documented in this [facility]12-30-2024 Note* Post-Procedure Note - Marielle Hair RN - 11/06/2024 7:10 PM EST Patient feeling better after IM Ephedrine injection. Ambulated and ready to be discharged [id number]* Post-Procedure Note - Marielle Hair RN - 11/06/2024 7:10 PM EST Patient feeling better after IM Ephedrine injection. Ambulated and ready to be discharged [facility]jkajm60-12-8420 Note* Post-Procedure Note - Marielle Hair RN - 11/06/2024 6:38 PM EST Per previous nursing note, patient was unable to stand due to nausea. She was placed back in bed with phase 2 monitoring with lights out to sleep. Family at bedside and call light within reach. Anesthesia paged for order of Ephedrine IM to help with nausea/vomiting. Patient states that every time she moves her head she gets really nauseated. Upon sitting on the side of bed, then upon standing, patient vomited. [id number] Note* Post-Procedure Note - Marielle Hair RN - 11/06/2024 6:38 PM EST Per previous nursing note, patient was unable to stand due to nausea. She was placed back in bed with phase 2 monitoring with lights out to sleep. Family at bedside and call light within reach. Anesthesia paged for order of Ephedrine IM to help with nausea/vomiting. Patient states that every time she moves her head she gets really nauseated. Upon sitting on the side of bed, then upon standing, patient vomited. [facility]12-30-2024 Note* Post-Procedure Note - Marielle Hair RN - 11/06/2024 5:47 PM EST Patient states she is feeling better. We will attempt to ambulate to restroom [facility]12-30-2024 Note* Post-Procedure Note - Marielle Hair RN - 11/06/2024 5:47 PM EST Patient states she is feeling better. We will attempt to ambulate to restroom [facility]12-30-2024 Note* Post-Procedure Note - Marielle Hair RN - 11/06/2024 4:45 PM EST Discharge information given to the patient. Patient and family verbalized understanding of information. All questions were answered at this time. Patient denies dizziness. Vital signs are stable. [facility]12-30-2024 Note* Post-Procedure Note - Marielle Hair RN - 11/06/2024 4:45 PM EST Discharge information given to the patient. Patient and family verbalized understanding of information. All questions were answered at this time. Patient denies dizziness. Vital signs are stable. [place] [address]-30-2024 Note* Perioperative Nursing Note - Michelle Dick RN - 11/06/2024 3:35 PM EST Family/visitor at bedside with patient. [facility] [id number] Note* Perioperative Nursing Note - Michelle Dick RN - 11/06/2024 3:35 PM EST Family/visitor at bedside with patient. [facility] HospitalFyqgir66-52-1121 NotePatient: Ritika Vega Procedure Summary Date: 11/06/24 Room / Location: [facility] OR [address] [place] [address] Operating Room Anesthesia Start: 1311 Anesthesia Stop: 143 Procedure: LAPAROSCOPIC OVARIAN CYSTECTOMY (Abdomen) Diagnosis: Intra-abdominal and pelvic swelling, mass and lump, unspecified site (Intra-abdominal and pelvic swelling, mass and lump, unspecified site [R19.00]) Surgeons: Pedro Edwards MD Responsible Provider: Willis Corcoran MD Anesthesia Type: general, regional ASA Status: 2 Anesthesia Type: general, regional Vitals Value Taken Time BP 124/72 11/06/24 1434 Temp 36.7 ?C (98 ?F) 11/06/24 1434 Pulse 71 11/06/24 1436 Resp 16 11/06/24 1434 SpO2 100 % 11/06/24 1436 Vitals shown include unfiled device data. Anesthesia Post Evaluation Patient location during evaluation: PACU Patient participation: complete - patient participated Level of consciousness: sleepy but conscious Pain management: satisfactory to patient Airway patency: patent Dental Injury: no Cardiovascular status: acceptable, blood pressure returned to baseline and hemodynamically stable Respiratory status: acceptable and spontaneous ventilation Hydration status: euvolemic Nausea/Vomiting: controlled No notable events documented. Patient can be discharged once all PACU criteria has been met.[facility]12-30-2024 NotePatient: Ritika Vega Procedure Summary Date: 11/06/24 Room / Location: [facility] OR [address] [place] [address] Operating Room Anesthesia Start: 1311 Anesthesia Stop: 1436 Procedure: LAPAROSCOPIC OVARIAN CYSTECTOMY (Abdomen) Diagnosis: Intra-abdominal and pelvic swelling, mass and lump, unspecified site (Intra-abdominal and pelvic swelling, mass and lump, unspecified site [R19.00]) Surgeons: Pedro Edwards MD Responsible Provider: Willis Corcoran MD Anesthesia Type: general, regional ASA Status: 2 Anesthesia Type: general, regional Vitals Value Taken Time BP 124/72 11/06/24 1434 Temp 97.5 11/06/24 1436 Pulse 80 11/06/24 1435 Resp 16 11/06/24 1436 SpO2 100 % 11/06/24 1435 Vitals shown include unfiled device data. Anesthesia Post Evaluation Patient location during evaluation: PACU Patient participation: complete - patient participated Level of consciousness: sleepy but conscious Pain management: satisfactory to patient Multimodal analgesia pain management approach Airway patency: patent Two or more strategies used to mitigate risk of obstructive sleep apnea Cardiovascular status: acceptable and hemodynamically stable Respiratory status: acceptable Hydration status: acceptable No notable events documented. MIPS #430 PONV Patient received an inhalational anesthetic (4554F) Patient exhibits three or more risk factors for PONV (4556F) [facility] PONV anti-emtic agents of different classes preop and/or intraop (G9775) MIPS # 424 Perioperative Temperature Management Anesthesia time was less than 60 minutes (4256F) MIPS #477 Multimodal Pain Management Not emergent case Patient was administered multimodal pain management (two or more drugs and/or interventions excluding systemic opioids) in the periopeartive period occurring at some time between 6 hours prior to anesthesia start time until discharged from PACU (G2148) MIPS #404 Anesthesiology Smoking Abstinence The patient is not a current smoker (e.g. cigarette, cigar, pipe, e-cigarette/vaping/marijuana) If no stop here (XX404) I completed my handoff to the receiving clinician during which we: 1. Identified the patient 2. Identified the responsible provider 3. Reviewed the pertinent medical history 4. Discussed the surgical course 5. Reviewed intra-op anesthesia management and issues during anesthesia 6. Set expectations for post-procedure period 7. Allowed opportunity for questions and acknowledgement of understanding.[facility] [id number] NoteAirway Date/Time: 11/06/2024 1:21 PM Urgency: scheduled Airway not difficult General Information and Staff Patient location during procedure: Procedural Resident/[facility]: Alvin New CRNA Performed: SRNA Indications and Patient Condition Indications for airway management: anesthesia and airway protection Sedation level: Asleep Preoxygenated: yes Patient position: sniffing Mask difficulty assessment: 1 - vent by mask Final Airway Details Final airway type: endotracheal airway Successful airway: ETT Cuffed: yes Successful intubation technique: direct laryngoscopy Facilitating devices/methods: intubating stylet Endotracheal tube insertion site: oral Blade: Libra Blade size: #4 ETT size (mm): 7.0 Cormack-Lehane Classification: grade I - full view of glottis Placement verified by: capnometry Measured from: lips ETT to lips (cm): 21 Number of attempts at approach: [address] [place], [place] [address]12-30-2024 Note Peripheral Block Time Out: 11/06/2024 1:15 PM Patient location during procedure: Procedural Start time: 11/06/2024 1:15 PM End time: 11/06/2024 1:17 PM Reason for block: at surgeon's request and post-op pain management Staffing Performed: [facility] Resident/[facility]: ONESIMO Madrigal CRNA Preanesthetic Checklist Completed: patient identified, IV checked, site marked, risks and benefits discussed, surgical consent, monitors and equipment checked, pre-op evaluation and timeout performed Region: [place] Primary: TAP (Bupivacaine 0.375%/ Epi 1:200,000/ Dex 0.1mg/mL 40ml divided evenly bilateral) Secondary: Upper rectus (Bupivacaine 0.375%/ Epi 1:200,000/ Dex 0.1mg/mL 20ml divided evenly bilateral) Peripheral Block Patient position: supine Prep: ChloraPrep Patient monitoring: heart rate, color television console monitor, continuous pulse ox and continuous capnometry O2: ETT/LMA Laterality: bilateral Injection technique: single-shot Guidance: ultrasound guided -image retained in chart, tip of the needle identified by ultraound during injection. Needle Needle: 21G X 110 mm Additional Notes 11/06/2024 1:15 PM Assessment Injection assessment: negative aspiration for heme, no paresthesia on injection and incremental injection Heart rate change: no Slow fractionated injection: yes Required Documentation: Relevant anatomy identified (Nerves, Vessels, Muscles), Negative for blood on aspiration, Local anesthetic injected incrementally with intermittent aspiration every 5 mL, Normal resistance with injection, No EKG changes noted, No symptoms of toxicity, Local anesthetic spread visualized around nerves or plane. and Local anesthetic injected without difficultyMedications vyfNFXYWriuwc-zohizgpxtsx-jetccezxrfg (TAP) syringe - Injection 60 mL - 11/06/2024 1:15:00 [facility]12-30-[facility] Note* Brief Op Note - Pedro Edwards MD - 11/06/2024 1:11 PM EST Date: 11/06/2024 Location: [facility] OR Name: Ritika Vega, : 1985, Diagnosis Pre-op Diagnosis * Intra-abdominal and pelvic swelling, mass and lump, unspecified site [R19.00] Post-op Diagnosis * Intra-abdominal and pelvic swelling, mass and lump, unspecified site [R19.00] Procedures LAPAROSCOPIC OVARIAN CYSTECTOMY 54933 - NM OVARIAN CYSTECTOMY UNI/BI Surgeons * Pedro Edwards - Primary Procedure Summary Anesthesia: General ASA: II Estimated Blood Loss: 20 mL Drains: Urethral Catheter (Active) Specimens ID Source Type Tests Collected By Collected At Frozen? Priority Lab ID 1 Peritoneal Washings Wash NON-GYNECOLOGIC CYTOLOGY Pedro Edwards MD 11/06/24 1340 Description: PELVIC WASHINGS 2 Ovary, Right Tissue TISSUE EXAM Pedro Edwards MD 11/06/24 1409 Description: RIGHT OVARIAN CYST Staff: Buyer Planner: Angelina Clifton RN; Evelia Beasley RN Scrub Person: Dread Preciado Findings: Enlarged right ovary with a smooth ovarian surface. There were two separate cystic areas.One was clinically consistent with a mature cystic teratoma. The other consistent with a simple benign ovarian cyst. The left tube and ovary were grossly normal in appearance. The right tube was normal in appearance as was the uterine serosa. The upper abdomen including bilateral hemidiaphragms, liver capsule, stomach and omentum were normal in appearance. Complications: None apparent; patient tolerated the procedure well. Specimens Collected: Order Name Source Comment Collection Info Order Time HCG QUALITATIVE URINE Urine, Clean Catch Discontinue this order if: 1. patient is older than 55 years old 2. has had a prior hysterectomy 3. today's surgery is for treatment of known or suspected ectopic or loss. 4. patient has a known intrauterine but this is a needed surgery. 11/06/2024 11:55 AM POTASSIUM WITH MG REFLEX For patients on dialysis to draw potassium day of surgery 11/06/2024 11:55AM PROTHROMBIN TIME If patient on coumadin within 4 days prior. 11/06/2024 11:55 AM NON-GYNECOLOGIC CYTOLOGY Peritoneal Washings Pre-op diagnosis: Intra-abdominal and pelvic swelling, mass and lump, unspecified site [R19.00] Collected By: Pedro Fernando MD 11/06/2024 1:40 PM TISSUE EXAM Ovary, Right Pre-op diagnosis: Intra-abdominal and pelvic swelling, mass and lump, unspecified site [R19.00] Collected By: Pedro Fernando MD 11/06/2024 2:09 PM Wound Class: Class I: Clean Blood Products: None Prophylactic Antibiotics: Pre-operative antibiotics were not given because antibiotics are not indicated for this procedure. [facility]12-30-2024 Note* Brief Op Note - Pedro Edwards MD - 11/06/2024 1:11 PM EST Date: 11/06/2024 Location: [facility] OR Name: Ritika Vega, : 1985, Diagnosis Pre-op Diagnosis * Intra-abdominal and pelvic swelling, mass and lump, unspecified site [R19.00] Post-op Diagnosis * Intra-abdominal and pelvic swelling, mass and lump, unspecified site [R19.00] Procedures LAPAROSCOPIC OVARIAN CYSTECTOMY 17161 - NM OVARIAN CYSTECTOMY UNI/BI Surgeons * Pedro Edwards - Primary Procedure Summary Anesthesia: General ASA: II Estimated Blood Loss: 20 mL Drains: Urethral Catheter (Active) Specimens ID Source Type Tests Collected By Collected At [facility]? Priority Lab ID 1 Peritoneal Washings Wash NON-GYNECOLOGIC CYTOLOGY Pedro Edwards MD 11/06/24 1340 Description: PELVIC WASHINGS 2 Ovary, Right Tissue TISSUE EXAM Pedro Edwards MD 11/06/24 1409 Description: RIGHT OVARIAN CYST Staff: Buyer Planner: Angelina Clifton, RN; Evelia Beasley RN Scrub Person: Draed Preciado Findings: Enlarged right ovary with a smooth ovarian surface. There were two separate cystic areas.One was clinically consistent with a mature cystic teratoma. The other consistent with a simple benign ovarian cyst. The left tube and ovary were grossly normal in appearance. The right tube was normal in appearance as was the uterine serosa. The upper abdomen including bilateral hemidiaphragms, liver capsule, stomach and omentum were normal in appearance. Complications: None apparent; patient tolerated the procedure well. Specimens Collected: Order Name Source Comment Collection Info Order Time HCG QUALITATIVE URINE Urine, Clean Catch Discontinue this order if: 1. patient is older than 55 years old 2. has had a prior hysterectomy 3. today's surgery is for treatment of known or suspected ectopic or loss. 4. patient has a known intrauterine but this is a needed surgery. 11/06/2024 11:55 AM POTASSIUM WITH MG REFLEX For patients on dialysis to draw potassium day of surgery 11/06/2024 11:55AM PROTHROMBIN TIME If patient on coumadin within 4 days prior. 11/06/2024 11:55 AM NON-GYNECOLOGIC CYTOLOGY Peritoneal Washings Pre-op diagnosis: Intra-abdominal and pelvic swelling, mass and lump, unspecified site [R19.00] Collected By: Pedro Fernando MD 11/06/2024 1:40 PM TISSUE EXAM Ovary, Right Pre-op diagnosis: Intra-abdominal and pelvic swelling, mass and lump, unspecified site [R19.00] Collected By: Pedro Fernando MD 11/06/2024 2:09 PM Wound Class: Class I: Clean Blood Products: None Prophylactic Antibiotics: Pre-operative antibiotics were not given because antibiotics are not indicated for this procedure. [id number] History and physical note* Pedro Edwards MD - 11/06/2024 9:17 AM EST Images from the original note were not included. 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 Primary Care Physician: SANDY DAWN DO Date: 11/06/2024 Time: 9:17 AM The patient was seen in pre-op holding. She is here for LAPAROSCOPIC RIGHT OVARIAN CYSTECTOMY. The procedure risks and complications were reviewed. The labs, consent, and H&P were reviewed and updated as appropriate. The patient had all of her questions answered. OBSTETRICAL HISTORY: OB History No obstetric history on file. PAST MEDICAL HISTORY: has a past medical history of Arthritis (2019), Celiac disease (2012), Colon polyp (2023), Disease of thyroid gland, GI (gastrointestinal bleed) (2022), Hyperthyroidism, Irregular heart beat, Motion sickness, and PONV (postoperative nausea and vomiting). PAST SURGICAL HISTORY: has a past surgical history that includes Other surgical history (2007); Eye surgery (2010); Colonoscopy (2023); LASIK (2010); Tonsillectomy; Upper gastrointestinal endoscopy; and Points tooth extraction. ALLERGIES: Allergies as of 10/30/2024 (No Known Allergies) MEDICATIONS: @MEDCMED@ FAMILY HISTORY: family history includes Anesthesia problems in her maternal grandmother; Arthritis in her father; Cancer in her paternal grandmother; Depression in her mother; Diabetes in her maternal grandmother; Heart disease in her maternal grandfather, maternal grandmother, and paternal grandfather; Hypertension in her father and mother; Stroke in her paternal grandfather. SOCIAL HISTORY: reports that she has never smoked. She has never used smokeless tobacco. She reports current alcohol use of about 1.0 standard drink of alcohol per week. She reports that she does not use drugs. VITALS: There were no vitals filed for this visit. PHYSICAL EXAM and ROS: Unchanged from Prior H&P LAB RESULTS: No visits with results within 4 Week(s) from this visit. Latest known visit with results is: No results found for any previous visit. DIAGNOSTICS: @RISRSLT@ DIAGNOSIS & PLAN: - Proceed with planned procedure: LAPAROSCOPIC RIGHT OVARIAN CYSTECTOMY - Consent signed, on chart. - The patient is ready for transport to the operative suite. Pedro Jimenez MD 11/06/2024, 9:17 AM [place] Phone: [phone] 563-157912-30-2024 NoteOB/MOTHER'S HELPER Pre-Op Note Patient Name: Ritika Vega Patient : 1985 Room/Bed: Room/bed info not found Admission Date/Time: No admission date for patient encounter. Primary Care Physician: SANDY DAWN DO Date: 11/06/2024 Time: 9:17 AM The patient was seen in pre-op holding. She is here for LAPAROSCOPIC RIGHT OVARIAN CYSTECTOMY. The procedure risks and complications were reviewed. The labs, consent, and H&P were reviewed and updated as appropriate. The patient had all of her questions answered. OBSTETRICAL HISTORY: OB History No obstetric history on file. PAST MEDICAL HISTORY: has a past medical history of Arthritis (2019), Celiac disease (2012), Colon polyp (2023), Disease of thyroid gland, GI (gastrointestinal bleed) (2022), Hyperthyroidism, Irregular heart beat, Motion sickness, and PONV (postoperative nausea and vomiting). PAST SURGICAL HISTORY: has a past surgical history that includes Other surgical history (2007); Eye surgery (2010); Colonoscopy (2023); LASIK (2010); Tonsillectomy; Upper gastrointestinal endoscopy; and Points tooth extraction. ALLERGIES: Allergies as of 10/30/2024 (No Known Allergies) MEDICATIONS: @MEDCMED@ FAMILY HISTORY: family history includes Anesthesia problems in her maternal grandmother; Arthritis in her father; Cancer in her paternal grandmother; Depression in her mother; Diabetes in her maternal grandmother; Heart disease in her maternal grandfather, maternal grandmother, and paternal grandfather; Hypertension in her father and mother; Stroke in her paternal grandfather. SOCIAL HISTORY: reports that she has never smoked. She has never used smokeless tobacco. She reports current alcohol use of about 1.0 standard drink of alcohol per week. She reports that she does not use drugs. VITALS: There were no vitals filed for this visit. PHYSICAL EXAM and ROS: Unchanged from Prior H&P LAB RESULTS: No visits with results within 4 Week(s) from this visit. Latest known visit with results is: No results found for any previous visit. DIAGNOSTICS: @RISRSLT@ DIAGNOSIS & PLAN: - Proceed with planned procedure: LAPAROSCOPIC RIGHT OVARIAN CYSTECTOMY - Consent signed, on chart. - The patient is ready for transport to the operative suite. Pedro Jimenez MD 11/06/2024, 9:17 [facility]12-30-2024 History and physical note* Pedro Edwards MD - 11/06/2024 9:17 AM EST Images from the original note were not included. 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 Primary Care Physician: SANDY DAWN DO Date: 11/06/2024 Time: 9:17 AM The patient was seen in pre-op holding. She is here for LAPAROSCOPIC RIGHT OVARIAN CYSTECTOMY. The procedure risks and complications were reviewed. The labs, consent, and H&P were reviewed and updated as appropriate. The patient had all of her questions answered. OBSTETRICAL HISTORY: OB History No obstetric history on file. PAST MEDICAL HISTORY: has a past medical history of Arthritis (2019), Celiac disease (2012), Colon polyp (2023), Disease of thyroid gland, GI (gastrointestinal bleed) (2022), Hyperthyroidism, Irregular heart beat, Motion sickness, and PONV (postoperative nausea and vomiting). PAST SURGICAL HISTORY: has a past surgical history that includes Other surgical history (2007); Eye surgery (2010); Colonoscopy (2023); LASIK (2010); Tonsillectomy; Upper gastrointestinal endoscopy; and Points tooth extraction. ALLERGIES: Allergies as of 10/30/2024 (No Known Allergies) MEDICATIONS: @MEDCMED@ FAMILY HISTORY: family history includes Anesthesia problems in her maternal grandmother; Arthritis in her father; Cancer in her paternal grandmother; Depression in her mother; Diabetes in her maternal grandmother; Heart disease in her maternal grandfather, maternal grandmother, and paternal grandfather; Hypertension in her father and mother; Stroke in her paternal grandfather. SOCIAL HISTORY: reports that she has never smoked. She has never used smokeless tobacco. She reports current alcohol use of about 1.0 standard drink of alcohol per week. She reports that she does not use drugs. VITALS: There were no vitals filed for this visit. PHYSICAL EXAM and ROS: Unchanged from Prior H&P LAB RESULTS: No visits with results within 4 Week(s) from this visit. Latest known visit with results is: No results found for any previous visit. DIAGNOSTICS: @RISRSLT@ DIAGNOSIS & PLAN: - Proceed with planned procedure: LAPAROSCOPIC RIGHT OVARIAN CYSTECTOMY - Consent signed, on chart. - The patient is ready for transport to the operative suite. Pedro Jimenez MD 11/06/2024, 9:17 AM documented in this [facility]12-25-2024 NotePatient: Ritika Vega Procedure Information Date/Time: 11/06/24 1330 Procedure: OVARIAN CYSTECTOMY (Abdomen) - 60 MINS Location: [address] Operating Room Surgeons: Pedro Edwards MD Relevant Problems No relevant active problems Past Medical History: No past medical history on file. Past Surgical History: No past surgical history on file. Social History: TOBACCO: has no history on file for tobacco use. ETOH: has no history on file for alcohol use. Social History Substance and Sexual Activity Drug Use Not on file Family History: No family history on file. Screening: Having periods Clinical information reviewed: Physical Exam Airway Mallampati: II TM distance: >3 FB Neck ROM: full Mouth Open: normalendotracheal tube not in place Cardiovascular Dental dentition normal Pulmonary Abdominal Anesthesia Plan patient is NPO appropriate Any family history or previous problems with anesthesia no ASA 2 general and regional Any family history or previous problems with anesthesia no Patient was not previously instructed to abstain from smoking on day of procedure. Anesthetic plan and risks discussed with patient. Use of blood products discussed with who consented to blood products. ERAS Type 11/01/24 Chart reviewed. DOS orders for anesthesia placed according to ERAS protocol. General eras - celebrex (return checker) Bety Ayon APRN - 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 YONATHAN Screening Labs: No results found for: WBC, HGB, HCT, MCV, PLT No results found for: SODIUM, NA, POTASSIUM, K, CHLORIDE, CL, CO2, BUN, CREATININE, GLUCOSE, CALCIUM, PROT, BILIRUBINFL, ALKPHOS, AST, ALT, EGFR, GLOB No echocardiogram results found for the past 14 days No results found for this or any previous visit. Equipment Requests: [facility]2024 NoteSurgeon: Dr Edwards Case# [id number] Procedure: Ovarian cystectomy Sx Date: Tuesday 11/06 Time: 1400 Location: [facility] CPT: 86401 ICD-10: R19.00 Special Equipment: PAT: Saturday 11/03 at 0830- Phone call Submitted auth thru [employer] portal, awaiting determination.[facility]12-23-[facility] History of Present illness Narrative* Pedro Edwards MD - 10/30/2024 2:40 PM EST Chief Complaint Patient presents with Other Pelvic mass HISTORY OF THE PRESENT ILLNESS: Ritika Vega is a pleasant 38 y.o. female who presents in consultation at the request of Dr. Bustillos for evaluation and management of the above. Being followed by [facility] for infertility. 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 Right ovary - 5 x 5.5 x 3.5cm. There was a 2.4cm enhancing nodule. Left ovary and uterus were wnl. Referred for ovarian cystectomy. Past Medical History: Diagnosis Date Arthritis 2019 Celiac disease 2013 Colon polyp 2023 Disease of thyroid gland Graves disease GI (gastrointestinal bleed) 2022 Hyperthyroidism Irregular heart beat Heart murmur Motion sickness PONV (postoperative nausea and vomiting) Celiac disease Thyroid disease Past Surgical History: Procedure Laterality Date COLONOSCOPY 2023 Polyp removed EYE SURGERY 2010 OTHER SURGICAL HISTORY 2007 Two left knee, two left elbow knee scope/ dislocation of elbow TONSILLECTOMY UPPER GASTROINTESTINAL ENDOSCOPY WISDOM TOOTH EXTRACTION Knee and elbow surgery Does well with anesthesia. Obstetrical History: G0 Family History Problem Relation Name Age of Onset Depression Mother Rhianna Gutierrezphrey Hypertension Mother Rihanna Gutierrezphrey Arthritis Father Anjel Gutierrezphrey Hypertension Father Anjel Vega Heart disease Maternal Grandfather Apolinar Lee Anesthesia problems Maternal Grandmother Cece Lee Diabetes Maternal Grandmother Cece Lee Heart disease Maternal Grandmother Cece Lee Heart disease Paternal Grandfather Zac Vega Stroke Paternal Grandfather Zac Vega Cancer Paternal Grandmother Jessica Vega Social History Socioeconomic History Marital status: Spouse name: Not on file Number of children: Not on file Years of education: Not on file Highest education level: Not on file Occupational History Not on file Tobacco Use Smoking status: Never Smokeless tobacco: Never Vaping Use Vaping status: Never Used Substance and Sexual Activity Alcohol use: Yes Alcohol/week: 1.0 standard drink of alcohol Types: 1 Glasses of wine per week Drug use: Never Sexual activity: Yes Partners: Male control/protection: None Other Topics Concern Not on file Social History Narrative Not on file Social Drivers of Health Financial Resource Strain: Not on file Food Insecurity: Not on file Transportation Needs: Not on file Physical Activity: Not on file Stress: Not on file Social Connections: Not on file Intimate Partner Violence: Not on file Housing Stability: Not on file Current Outpatient Medications on File Prior to Visit Medication Sig Dispense Refill propylthiouracil (PTU) 50 MG tablet Take 50 mg by mouth 1 (one) time. No current facility-administered medications on file prior to visit. Allergies as of 10/30/2024 (No Known Allergies) Review of Systems A 12 point review of systems was performed and is as per the history of the present illness, all other systems were reviewed and are negative. Vitals: 10/30/24 1515 BP: 133/85 Pulse: 62 Body mass index is 22.45 kg/m . Physical Exam Vitals reviewed. Constitutional: General: She is not in acute distress. Appearance: Normal appearance. She is not ill-appearing, toxic-appearing or diaphoretic. HENT: Head: Normocephalic and atraumatic. Eyes: General: No scleral icterus. Extraocular Movements: Extraocular movements intact. Cardiovascular: Rate and Rhythm: Normal rate. Pulmonary: Effort: Pulmonary effort is normal. No respiratory distress. Abdominal: General: There is no distension. Palpations: Abdomen is soft. There is no mass. Tenderness: There is no abdominal tenderness. There is no guarding or rebound. Hernia: No hernia is present. Musculoskeletal: Right lower leg: No edema. Left lower leg: No edema. Skin: General: Skin is warm and dry. Coloration: Skin is not jaundiced or pale. Findings: No erythema. Neurological: General: No focal deficit present. Mental Status: She is alert. Motor: No weakness. Coordination: Coordination normal. Gait: Gait normal. Psychiatric: Mood and Affect: Mood normal. Behavior: Behavior normal. ASSESSMENT/PLAN: Diagnosis Plan 1. Ovarian mass 2. Mature cystic teratoma 3. Primary female infertility Ritika Vega is a 38 y.o. with primary infertility and a complex adnexal mass clinically consistent with a mature cystic teratoma. Plan for laparoscopic ovarian cystectomy. The risks of surgery were discussed, including but not limited to: bleeding, infection, injury to surrounding structures including, but not limited to bowel, bladder, ureters, blood vessels and nerves; medical complications including pneumonia, blood clots, heart attack, stroke, ; and anesthesia complications. Finally, we discussed the risk of possible need for oophorectomy. The basic steps of the procedure were discussed including pre- and post- operative expectations including restrictions to physical activity, driving, lifting, and sexual activity. We also discussed the use of pain medications. Routine preoperative testing ordered. The patient had an opportunity to ask questions, all of which were answered to the best of my ability. She is in agreement with the above noted plan. I spent a total time of 45 minutes reviewing previous notes, test results, obtaining history, communicating results to the patient as well as counseling the patient, documenting clinical information in the patient's electronic medical record and coordinating care for the patient. Disclaimer: This note was dictated by speech recognition. 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 documented in this [facility]12-23-2024 History of Present illness Narrative* Margaret Amin, RT(R) - 10/30/2024 7:30 AM EST Radiology Service Progress Note PATIENT NAME: Ritika Vega DATE OF SERVICE: October 30, 2024 TIME: 7:43 AM PATIENT IDENTITY VERIFICATION COMPLETED USING TWO (2) IDENTIFIERS: Name and Date of confirmedby patient verbally. FALL SCREENING: Has the patient had 2 falls in the last year or 1 fall with injury or currently using an Ambulatory Assistive Device (Walker, Cane, Wheelchair, Crutches, etc.)? No PATIENT GENDER DATA: Female. status: : No status: NO. PATIENT RELEVANT IMPLANT DATA REVIEWED: Yes PATIENT PRESENTS WITH AN IMPLANTABLE OR ATTACHED SPEECH LANGUAGE SPECIALIST: No RADIOLOGY DEPARTMENT: MR; Exam(s) Completed: Upper MSK: Shoulder, right PERIPHERAL IV DATA: Not applicable SIGNED BY: RT Scotty(Tian) October 30, 2024 7:43 AM documented in this [facility]12-[facility]-2024 NoteHNO ID: [id number] Author: MARGARET AMIN RT (R) Service: ? Author Type: Technologist Type: Progress Notes Filed: 10/30/2024 07:43 Note Text: Radiology Service Progress Note PATIENT NAME: Ritika Vega DATE OF SERVICE: October 30, 2024 TIME: 7:43 AM PATIENT IDENTITY VERIFICATION COMPLETED USING TWO (2) IDENTIFIERS: Name and Date of confirmed by patient verbally. FALL SCREENING: Has the patient had 2 falls in the last year or 1 fall with injury or currently using an Ambulatory Assistive Device (Walker, Cane, Wheelchair, Crutches, etc.)? No PATIENT GENDER DATA: Female. status: : No status: NO. PATIENT RELEVANT IMPLANT DATA REVIEWED: Yes PATIENT PRESENTS WITH AN IMPLANTABLE OR ATTACHED SPEECH LANGUAGE SPECIALIST: No RADIOLOGY DEPARTMENT: MR; Exam(s) Completed: Upper MSK: Shoulder, right PERIPHERAL IV DATA: Not applicable SIGNED BY: RT Scotty(Tian) October 30, 2024 7:43 [facility]12-16-2024 Telephone encounter Note* Telephone Encounter - Jamila Zuniga MA - 10/23/2024 11:31 AM EST Responded Via My Chart. [place] [id number] Miscellaneous Notes* Telephone Encounter - Jamila Zuniga MA - 10/23/2024 11:31 AM EST Responded Via My Chart. documented in this encounterHocking [facility]12-11-2024 NoteHNO ID: [id number] Author: DEE GLASGOW DO Service: ? Author Type: Physician Type: Progress Notes Filed: 10/18/2024 15:46 Note Text: Ritika Vega is a patient of Nacho Ferrera DO. CHIEF COMPLAINT: Ritika Vega is a 38 year old female who presents today for new evaluation of right shoulder. 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 Has had PT, CSI in the past Last CSI was over 1 year ago, helped a few months Pain with certain motions, activities PHYSICAL EXAMINATION: SHOULDER EXAM Flexion: normal at 150-180 degrees Abduction: normal at 125-150 degrees External rotation: normal SC JOINT: no tenderness to palpation AC JOINT: no tenderness to palpation Scapula exam: normal examination of scapula with no dyskinetic motion noted Cristina Test / Empty Can Test (supraspinatus): positive for pain Resisted lateral rotation test (infraspinatus): positive for pain Belly press test (subscapualris): normal examination with no pain or weakness elicited Feldman's test: positive for pain with thumb down, relieved with thumb up IMAGING: Final results and radiologist's interpretation, available in the [facility] health record. Images were reviewed with the patient/family members in the office today. My personal interpretation of the performed imaging is no acute abnormality. CLINICAL IMPRESSION / ASSESSMENT: (S47.251A) Glenoid labral tear, right, initial encounter (primary encounter diagnosis) (M67.911) Tendinopathy of right rotator cuff RECOMMENDATION / PLAN: We have ordered and recommend an MRI of the right shoulder to further delineate pathology and to dictate our treatment plan of care. Patient has been instructed to schedule an office appointment after the advanced imaging is completed. At that visit, results of the advanced imaging will then be discussed with full explanation and treatment options. Advanced imaging ordered to rule-out labral tear. Discussed with her about the treatment options of PRP for the right shoulder. Would want to see the structure of the right shoulder before consider PRP She understands that the PRP is out of pocket Follow-up after MRI Procedures Verbal health education was given to patient. Patient verbalizes understanding and agrees with the treatment plan as detailed above. Dee Glasgow [facility]12-11-2024 History of Present illness Narrative* Dee Glasgow DO - 10/18/2024 10:42 AM EST Images from the original note were not included. Ritika Vega is a patient of Nacho Ferrera DO. CHIEF COMPLAINT: Ritika Vega is a 38 year old female who presents today for new evaluation ofright shoulder. 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 Has had PT, CSI in the past Last CSI was over 1 year ago, helped a few months Pain with certain motions, activities PHYSICAL EXAMINATION: SHOULDER EXAM Flexion: normal at 150-180 degrees Abduction: normal at 125-150 degrees External rotation: normal SC JOINT: no tenderness to palpation AC JOINT: no tenderness to palpation Scapula exam: normal examination of scapula with no dyskinetic motion noted Cristina Test / Empty Can Test (supraspinatus): positive for pain Resisted lateral rotation test (infraspinatus): positive for pain Belly press test (subscapualris): normal examination with no pain or weakness elicited Feldman's test: positive for pain with thumb down, relieved with thumb up IMAGING: Final results and radiologist's interpretation, available in the [facility] health record. Images were reviewed with the patient/family members in the office today. My personal interpretation of the performed imaging is no acute abnormality. CLINICAL IMPRESSION / ASSESSMENT: (S43.431A) Glenoid labral tear, right, initial encounter (primary encounter diagnosis) (M67.911) Tendinopathy of right rotator cuff RECOMMENDATION / PLAN: We have ordered and recommend an MRI of the right shoulder to further delineate pathology and to dictate our treatment plan of care. Patient has been instructed to schedule an office appointment after the advanced imaging is completed. At that visit, results of the advanced imaging will then be discussed with full explanation and treatment options. Advanced imaging ordered to rule-out labral tear. Discussed with her about the treatment options of PRP for the right shoulder. Would want to see thestructure of the right shoulder before consider PRP She understands that the PRP is out of pocket Follow-up after MRI Procedures Verbal health education was given to patient. Patient verbalizes understanding and agrees with the treatment plan as detailed above. Dee Glasgow DO documented in [facility] NoteHNO ID: [id number] Author: MARGARET BRAMBILA RT(Tian) Service: ? Author Type: Technologist Type: Progress Notes Filed: 10/18/2024 09:54 Note Text: Radiology Service Progress Note PATIENT NAME: Ritika Vega DATE OF SERVICE: October 18, 2024 TIME: 9:53 AM PATIENT IDENTITY VERIFICATION COMPLETED USING TWO (2) IDENTIFIERS: Name and Date of confirmed by patient verbally. FALL SCREENING: Has the patient had 2 falls in the last year or 1 fall with injury or currently using an Ambulatory Assistive Device (Walker, Cane, Wheelchair, Crutches, etc.)? No PATIENT GENDER DATA: Female. status: : No status: NO. PATIENT RELEVANT IMPLANT DATA REVIEWED: Not Applicable PATIENT PRESENTS WITH AN IMPLANTABLE OR ATTACHED SPEECH LANGUAGE SPECIALIST: No RADIOLOGY DEPARTMENT: General X-ray: Exam(s) Completed: Upper Extremity X-Ray(s): Shoulder, AP / TRUE AP / AXILLARY right PERIPHERAL IV DATA: Not applicable SIGNED BY: RT Naye(R) October 18, 2024 9:53 [facility]12-11-2024 History of Present illness Narrative* Margaret Brambila RT(R) - 10/18/2024 9:53 AM EST Radiology Service Progress Note PATIENT NAME: Ritika Vega DATE OF SERVICE: October 18, 2024 TIME: 9:53 AM PATIENT IDENTITY VERIFICATION COMPLETED USING TWO (2) IDENTIFIERS: Name and Date of confirmedby patient verbally. FALL SCREENING: Has the patient had 2 falls in the last year or 1 fall with injury or currently using an Ambulatory Assistive Device (Walker, Cane, Wheelchair, Crutches, etc.)? No PATIENT GENDER DATA: Female. status: : No status: NO. PATIENT RELEVANT IMPLANT DATA REVIEWED: Not Applicable PATIENT PRESENTS WITH AN IMPLANTABLE OR ATTACHED SPEECH LANGUAGE SPECIALIST: No RADIOLOGY DEPARTMENT: General X-ray: Exam(s) Completed: Upper Extremity X- Ray(s): Shoulder, AP / TRUE AP / AXILLARY right PERIPHERAL IV DATA: Not applicable SIGNED BY: RT Naye(R) October 18, 2024 9:53 AM documented in this encounterHocking [facility]11-22-[facility]24 Evaluation + Plan note Diagnostic Tests Pending * Rapid Plasma Reagin Test 09/29/24 * Rubella Antibody 09/29/24 * Varicella Zoster Antibody 09/29/24 * N. gonorrhoeae PCR 09/29/24 * Chlamydia trachomatis PCR 09/29/24 [facility] 03-25-2024 Note The microscopic examination is performed, except in the case of Gross Only. [facility] 03-25-2024 Note The microscopic examination is performed, except in the case of Gross Only. [facility] 03-22-2024 Note The microscopic examination is performed, except in the case of Gross Only. [facility] 03-22-2024 Note The microscopic examination is performed, except in the case of Gross Only. [facility] 03-22-2024 Note The microscopic examination is performed, except in the case of Gross Only. [facility] 03-22-2024 Note The microscopic examination is performed, except in the case of Gross Only. [facility] 03-22-2024 Note The microscopic examination is performed, except in the case of Gross Only. [facility] 07-14-2023 History of Present illness Narrative* Va Beasley MD - 05/21/2023 10:20 AM EDT ENDOCRINOLOGY REFERRAL - THYROID DISORDER Referring Physician: Sandy Dawn, DO My final recommendations will be communicated back to the referring provider via shared medical record, or USPS FOR VIRTUAL VISITS: I have communicated my name and licensure. The patient's identity and location were verified. Either the patient or their legal field representative/health education has been informed of the risks, benefits, and alternatives based on a remote evaluation, and consents to proceed remotely per [place] law. CC: Graves disease HPI: Ritika Vega is a 37 year old female [...] Procedure Laterality Date EGD Upper endoscoscopy: Dr. GriffithNnsl-Daimo-Tuspxhh Celiac Disease ELBOW SURGERY HX 2008 left [...] by mouth once daily. Norethindrone Acet-Ethinyl Est (,) 1-20 mg-mcg per tablet Take 1 tablet by mouth oncedaily. SULFACLEANSE 8-4 8-4 % susp Apply 1 application to affected area once daily. OMEGA-3 FATTY ACIDS/FISH OIL (OMEGA 3 FISH OIL ORAL) Take 1,200 mg by mouth once daily. No current facility-administered medications on file prior to visit. LABS - to be sent to me - also ordered new today IMAGING PHYSICAL EXAM: [facility] 03/17/2019 VIRTUALLY General appearance: Well appearing, alert, [...] opportunity to participate in the care of Ritika Vega. Please do not hesitate to contact me if you have further concerns or questions. This chart has been routed to the referring provider electronically Va Beasley MS, RD, MD, CCD, FACN, FACP, FACE Diplomate, [place] [employer] Diplomate, National Board of Physician Nutrition Specialists Endocrinology / / [facility] [id number] Any part of this document that has been added/copied & pasted from other documents has been reviewed for accuracy and updated as appropriate at the time of the patient encounter documented in this encounterHocking Valley [facility] HospitalEvaluation + Plan note No data available for this section [facility] Evaluation note* Diagnosis Onset Date Resolution Status Thyrotoxicosis due to Graves' disease [facility] Work Phone: Evaluation noteNo assessment information available [facility] Work Phone: Evaluation note* Diagnosis Onset Date Resolution Status Paresthesia acute 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 [facility] Work Phone: Evaluation note* Diagnosis Graves disease- Primary Toxic diffuse goiter without mention of thyrotoxic crisis or storm Celiac disease documented in this encounter [facility]* Diagnosis Onset Date Resolution Status 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 Pre-conception counseling ac connie Encounter for routine gynecological examination noneactive [facility] Work Phone: Evaluation note* Diagnosis Onset Date Resolution Status Influenza A acute Thyrotoxicosis due to Graves' disease [facility] Work Phone: Evaluation note* Diagnosis Pain- Primary Generalized pain documented in this encounter [facility] note* Diagnosis Glenoid labral tear, right, initial encounter- Primary Tendinopathy of right rotator cuff documented in this encounter [facility] note* Diagnosis Glenoid labral tear, right, initial encounter Tendinopathy of right rotator cuff documented in this encounter [facility] note* Diagnosis Ovarian mass- Primary Unspecified noninflammatory disorder of ovary, fallopian tube, and broad ligament Mature cystic teratoma Benign neoplasm of unspecified site Primary female infertility Female infertility of unspecified origin Intra-abdominal and pelvic swelling, mass and lump, unspecified site documented in this encounter [facility] note* Diagnosis Intra-abdominal and pelvic swelling, mass and lump, unspecified site documented in this encounter [facility] note* Diagnosis Glenoid labral tear, right, initial encounter- Primary Tendinopathy of right rotator cuff documented in this encounter [facility] note* Diagnosis Postop check- Primary Follow-up examination, following unspecified surgery documented in this encounter [facility] note* Diagnosis Glenoid labral tear, right, initial encounter- Primary Tendinopathy of right rotator cuff documented in this encounter [facility] Discharge instructions No data available for this section [facility] Progress note No data available for this section [facility] Reason for referral (narrative)* Diagnostic Procedure Only (Routine) - New Request Specialty Diagnoses / Procedures Referred By Garry kam Referred To Contact XR IMAGING Diagnoses Pain Procedures XR SHOULDER GENERAL 3V OR MORE AP/TRUE AP/OTHER RIGHT RADEX SHOULDER COMPLETE MINIMUM 2 VIEWS Daniel Bourgeois MD [address] [place] [address] Xr Imaging [id number] Referral ID Status Reason Start Date Expiration Date Visits Requested Visits Authorized [id number] New Request Auto-Generat ed Referral 11/02/2025 1 1 * Diagnostic Procedure Only (Routine) - New Request Specialty Diagnoses / Procedures Referred By Garry kam Referred To Contact XR IMAGING Diagnoses Pain Procedures XR SHOULDER GENERAL 3V OR MORE AP/TRUE AP/OTHER LEFT RADEX SHOULDER COMPLETE MINIMUM 2 VIEWS Daniel Bourgeois MD [address] [place] [address] Xr [facility] [place] [address] Referral ID Status Reason Start Date Expiration Date Visits Requested Visits Authorized [id number] New Request Auto-Generat ed Referral 4 11/02/2025 1 1 [facility] (narrative)No reason for referral information availableWSumma [facility] Work Phone: Reason for visit Narrative* Auth/Cert (Routine) Specialty Diagnoses / Procedures Referred By Garry kam Referred To Contact Diagnoses Intra-abdominal and pelvic swelling, mass and lump, unspecified site Intra-abdominal and pelvic swelling, mass and lump, unspecified site [R19.00] Procedures NM OVARIAN CYSTECTOMY UNI/BI LAPAROSCOPIC OVARIAN CYSTECTOMY Pedro Edwards MD [address] [place] [address] Phone: tel: fax: Referral ID Status Reason Start Date Expiration Date Visits Re quested Visits Authorized [id number] 10/30/2024 1 1 [facility] for visit Narrative* Financial Clearance (Routine) - Closed Specialty Diagnoses / Procedures Referred By Garry t Referred To Contact ORTHOPAEDIC SURGERY Diagnoses Tendinopathy of right rotator cuff Glenoid labral tear, right, initial encounter (S43.431A) Glenoid labral tear, right, initial encounter (M67.911) Tendinopathy of right rotator cuff Procedures NJX PLTLT PLASMA W/IMG HARVEST/PREPARATION PRP WITH US GUIDE - RIGHT SHOULDER Dee Glasgow, DO [address] [place] [address] Phone: tel: fax: Orthopaedics [address] [place] [address] Phone: tel: fax: Referral ID Status Reason Start Date Expiration Date V isits Requested Visits Authorized [id number] Closed Do Not Bill Insurance - SP patient Patient Cleared - True Self-Pay required payment collected 12/06/2024 03/25/2025 1 1 [facility] Summary Purpose Family History Relationship Condition Age at Onset Recorded Date/T davian mother Fibromyalgia Unknown Depression Unknown Hypertension Unknown Hyperlipidemia Unknown grandmother Malignant neoplasm of breast Unknown Diabetes mellitus Unknown Cardiac disease Unknown Malignant neoplasm of skin Unknown father Hypertension Unknown grandfather Cerebrovascular accident (CVA) Unknown Advance Directives Date Activated Date Inactivated Comments 11/06/2024 11:55 AM 11/06/2024 9:28 PM Date Activated Date Inactivated Comments 11/06/2024 11:55 AM 11/06/2024 9:28 PM Chief Complaint and Reason for Visit Chief Complaint 6 M FU EORDER Reason for Visit Thyrotoxicosis due t o Graves' disease Chief Complaint EORDER EORDER Chief Complaint EORDER EORDER EORDER Chief Complaint EORDER EORDER 6 M FU EORDERS FOR MARKOS AND BRAVO Reason for Visit Paresthesia Thyrotoxicosis due to Graves' disease Chief Complaint EORDER EORDER 6 M FU EORDERS FOR MARKOS AND BRAVO LUMBAR RAD Reason for Visit Paresthesia Thyrotoxicosis due to Graves' disease Chief Complaint LUMBAR RAD EORDER Chief Complaint LUMBAR RAD EORDER 6 M FU Reason for Visit Thyrotoxicosis due t o Graves' disease Chief Complaint 6 M FU CELIAC DISEASE Reason for Visit Thyrotoxicosis due t o Graves' disease Chief Complaint CELIAC DISEASE 4 M FU 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 Reason for Visit Thyrotoxicosis due t o Graves' disease Chief Complaint CELIAC DISEASE 4 M FU 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 ORDERS Reason for Visit Thyrotoxicosis due t o Graves' disease Chief Complaint 4 M FU 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 ORDERS 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) Reason for Visit Thyrotoxicosis due t o Graves' disease Pre-conception counseling Encounter for routine gynecological examination Chief Complaint COUGH, CHILLS,ACHY EORDER 6 M FU Reason for Visit Influenza A Thyrotoxicosis due to Graves' disease Chief Complaint Admit Date EORDER October 18, 2024 1:51pm EORDER December 08, 2024 8 :25am 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) January 01, 2025 8:49am EORDER January 08, 2025 8:29 am Reason for Visit Admit Date Infertility January 01, 2025 8:49am Encounter for routine gynecological exam ination January 01, 2025 8:49am Chief Complaint Admit Date EORDER December 08, 2024 8 :25am 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) January 01, 2025 8:49am EORDER January 08, 2025 8:29 am 6 M FU February 15, 2025 8:2 9am E-ORDER March 15, 2025 8:30am Reason for Visit Admit Date Infertility January 01, 2025 8:49am Encounter for routine gynecological exam ination January 01, 2025 8:49am Thyrotoxicosis due to Graves' disease Ap 2024 8:29am Chief Complaint Admit Date EORDER December 08, 2024 8 :25am 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) January 01, 2025 8:49am EORDER January 08, 2025 8:29 am 6 M FU February 15, 2025 8:2 9am E-ORDER March 15, 2025 8:30am EORDERS March 28, 2025 8:40a m Chief Complaint Admit Date 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) January 01, 2025 8:49am EORDER January 08, 2025 8:29 am 6 M FU February 15, 2025 8:2 9am E-ORDER March 15, 2025 8:30am EORDERS March 28, 2025 8:40a m EORDERS April 13, 2025 10:08 am Reason for Referral Specialty Diagnoses / Procedures Referred By Garry kam Referred To Contact MR IMAGING Diagnoses Glenoid labral tear, right, initial encounter Tendinopathy of right rotator cuff Procedures MRI SHOULDER WO IVCON RIGHT MRI ANY JT UPPER EXTREMITY W/O CONTRAST MATRL Dee Glasgow, DO [address] [place] [address] [place] [address] Referral ID Status Reason Start Date Expiration Date V isits Requested Visits Authorized [id number] Open Auto-Generate d Referral 10/18/2024 11/17/2025 1 1 Additional Source Comments INFORMATION SOURCE (unrecogn ized section and content) DATE CREATED AUTHOR 06/02/2019 [facility] DATE CREATED AUTHOR AUTHOR'S ORGANIZ ATION 09/29/2019 [facility] DATE CREATED AUTHOR AUTHOR'S ORGANIZ ATION 11/15/2020 [employer] DATE CREATED AUTHOR AUTHOR'S ORGANIZ ATION 03/29/2024 [facility] ([place]) DATE CREATED AUTHOR AUTHOR'S ORGANIZ ATION 10/02/2024 [facility] DATE CREATED AUTHOR AUTHOR'S ORGANIZ ATION 10/23/[address] Bard[address] [facility] DATE CREATED AUTHOR AUTHOR'S ORGANIZ ATION 11/20/2024 [facility] DATE CREATED AUTHOR AUTHOR'S ORGANIZ ATION 12/29/2024 [facility] DATE CREATED AUTHOR AUTHOR'S ORGANIZ ATION 01/07/[address] [facility] DATE CREATED AUTHOR AUTHOR'S ORGANIZ ATION 03/24/2025 [facility] DATE CREATED AUTHOR AUTHOR'S ORGANIZ ATION 04/21/2025 [facility] Goals (unrecognized section and content) Goals may be documented in a n alternate sectionGoals may be documented in an alternate sectionGoals may be documented in an alternate sectionGoals may be documented in an alternate sectionGoals may be documented in an alternate sectionGoals may be documented in an alternate sectionGoals may be documented in an alternate sectionGoals may be documented in an alternate sectionGoals may be documented in an alternate sectionGoals may be documented in an alternate sectionGoals may be documented in an alternate section No data available for this sectionGoals may be documented in an alternate section No data available for this section No data available for this sectionGoals may be documented in an alternate sectionGoals may be documented in an alternate sectionGoals may be documented in an alternate sectionGoals may be documented in an alternate section Care Teams (unrecognized sec tion and content) Team Status: Active Member Role Status Dates Nacho Ferrera DO Primary Care Provider Active Team Status: Inactive Member Role Status Dates No Primary Care Physician Referring Provider Active Dr. Kirby Burrows MD Attending Provider Active Nacho Ferrera DO Primary Care Provider Active Team Status: Inactive Member Role Status Dates Nacho Ferrera DO Primary Care Provider Active Dr. Kirby Burrows MD Attending Provider Active Team Status: Inactive Member Role Status Dates Nacho Ferrera DO Primary Care Provider Active Dr. Kirby Burrows MD Attending Provider, Referring Provi constanza Active Team Status: Inactive Member Role Status Dates Nachosanta Ferrera DO Primary Care Provider Active Zuleyma Shaffer NP-C Attending Provider, Referring Pr ovider Active Dr. Kirby Burrows MD Other Provider Active Team Status: Inactive Member Role Status Dates Nacho Ferrera DO Primary Care Provider Active Dr. True Prather MD Attending Provider Active Team Status: Inactive Member Role Status Dates Nachosanta Ferrera DO Primary Care Provider, Referring Provider Active Dr. Kirby Burrows MD Attending Provider Active Ship Cleaner Relationship Specialty Start Date End Date Sandy Dawn PCP - General 11/14/15 Team Status: Inactive Member Role Status Dates Nacho Carmen DO Iban Primary Care Provider Active BOOGIE TESFAYE Attending Provider, Referring Provider A ctive Team Status: Inactive Member Role Status Dates Nacho Carmen DO Iban Primary Care Provider Active BOOGIE TESFAYE Attending Provider, Referring Provider A ctive Dr. Kirby Burrows MD Other Provider Active Team Status: Inactive Member Role Status Dates Nacho Carmen Iban DO Primary Care Provider, Referring Provider Active Dandy Reich CNM Attending Provider Active Team Status: Inactive Member Role Status Dates Nachosanta Ferrera DO Primary Care Provider Active Dandy Reich CNM Attending Provider, Referring Pr ovider Active Team Status: Active Member Role Status Dates Yony Phan MD Primary Care Provider Active Team Status: Inactive Member Role Status Dates Nacho Ferrera DO Referring Provider Active Dr. Kirby Burrows MD Attending Provider Active Yony Phan MD Primary Care Provider Active Team Status: Inactive Member Role Status Dates Nacho Ferrera DO Primary Care Provider, Referring Provider Active MARYCARMEN Manzanares Attending Provider Active Team Status: Inactive Member Role Status Dates Dr. Kirby Burrows MD Attending Provider, Referring Provi constanza Active Yony Phan MD Primary Care Provider Active Ship Cleaner Relationship Specialty Start Date End Date Iban Nacho Airam [address] [place] [address] PCP - General Family Medicine 10/03/24 Nacho Ferrera DO [address] [place] [address] Referring Family Medicine 10/03/24 Ship Cleaner Relationship Specialty Start Date End Date Nacho Ferrera DO [address] [place] [address] PCP - General Family Medicine 10/03/24 Nacho Ferrera DO [address] [place] [address] Referring Family Medicine 10/03/24 Ship Cleaner Relationship Specialty Start Date End Date Nacho Ferrera DO [address] [place] [address] PCP - General Family Medicine 10/03/24 Nacho Ferrera DO [address] [place] [address] Referring Family Medicine 10/03/24 Ship Cleaner Relationship Specialty Start Date End Date Nacho Ferrera DO [address] [place] [address] PCP - General Family Medicine 10/03/24 Nacho Ferrera DO [address] [place] [address] Referring Family Medicine 10/03/24 Ship Cleaner Relationship Specialty Start Date End Date Nacho Ferrera DO [address] [place] [address] PCP - General Family Medicine 10/03/24 Nacho Ferrera DO [address] [place] [address] Referring Family Medicine 10/03/24 Ship Cleaner Relationship Specialty Start Date End Date Sandy Dawn DO PCP - General 10/20/17 Karie Ortiz MD [address] [place] [id number] Consulting Physician Gynecologic Oncology 10/26/24 Pedro Edwards MD [address] [place] [address] Consulting Physician Gynecologic Oncology 10/29/24 Ship Cleaner Relationship Specialty Start Date End Date Karie Ortiz MD [address] [place] [address] Consulting Physician Gynecologic Oncology 10/26/24 Pedro Edwards MD [address] [place] [address] Consulting Physician Gynecologic Oncology 10/29/24 Ship Cleaner Relationship Specialty Start Date End Date Nacho Ferrera DO [address] [place] [address] PCP - General Family Medicine 10/03/24 Nacho Ferrera DO [address] [place] [address] Referring Family Medicine 10/03/24 Ship Cleaner Relationship Specialty Start Date End Date Karie Ortiz MD [address] [place] [address] Consulting Physician Gynecologic Oncology 10/26/24 Pedro Edwards MD [address] [place], [place] [id number] Consulting Physician Gynecologic Oncology 10/29/24 Jazmyne Argueta, GEAR FINISHER - 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 [address] [place], [place] [id number] Nurse Practitioner Nurse Practitioner 11/14/24 Team Status: Inactive Member Role Status Perfecto Phan MD Primary Care Provider Active St art: October 18, 2024 End: October 18, 2024 Dr. Kirby Burrows MD Attending Provider Active Sta rt: October 18, 2024 End: October 18, 2024 Dr. Kirby Burrows MD Referring Provider Active Sta rt: October 18, 2024 End: October 18, 2024 Team Status: Inactive Member Role Status Perfecto Phan MD Primary Care Provider Active St art: December 08, 2024 End: December 08, 2024 Dr. Kirby Burrows MD Attending Provider Active Sta rt: December 08, 2024 End: December 08, 2024 Dr. Kirby Burrows MD Referring Provider Active Sta rt: December 08, 2024 End: December 08, 2024 Team Status: Inactive Member Role Status Perfecto Phan MD Primary Care Provider Active St art: January 01, 2025 End: January 01, 2025 Yony Phan MD Referring Provider Active Start : January 01, 2025 End: January 01, 2025 ELIECER Cooney Attending Provider Active Start: January 01, 2025 End: January 01, 2025 Team Status: Inactive Member Role Status Perfecto Phan MD Primary Care Provider Active St art: January 08, 2025 End: January 08, 2025 Dr. Kirby Burrows MD Attending Provider Active Sta rt: January 08, 2025 End: January 08, 2025 Dr. Kirby Burrows MD Referring Provider Active Sta rt: January 08, 2025 End: January 08, 2025 Team Status: Inactive Member Role Status Perfecto hPan MD Primary Care Provider Active St art: February 15, 2025 End: February 15, 2025 Yony Phan MD Referring Provider Active Start : February 15, 2025 End: February 15, 2025 Dr. Kirby Burrows MD Attending Provider Active Sta rt: February 15, 2025 End: February 15, 2025 Team Status: Inactive Member Role Status Perfecto Phan MD Primary Care Provider Active St art: March 15, 2025 End: March 15, 2025 Dr. Kirby Burrows MD Attending Provider Active Sta rt: March 15, 2025 End: March 15, 2025 Dr. Kirby Burrows MD Referring Provider Active Sta rt: March 15, 2025 End: March 15, 2025 Ship Cleaner Relationship Specialty Start Date End Date Nacho Ferrera DO [address] [place] [address] PCP - General Family Medicine 10/03/24 Nacho Ferrera DO [address] [place] [address] Referring Family Medicine 10/03/24 Team Status: Inactive Member Role Status Perfecto Phan MD Primary Care Provider Active St art: March 28, 2025 End: March 28, 2025 ELIECER Fountain Attending Provider Active Start: March 28, 2025 End: March 28, 2025 ELIECER Fountain Referring Provider Active Start: March 28, 2025 End: March 28, 2025 Team Status: Inactive Member Role Status Perfecto Phan MD Primary Care Provider Active St art: April 13, 2025 End: April 13, 2025 Dr. Kirby Burrows MD Attending Provider Active Sta rt: April 13, 2025 End: April 13, 2025 Dr. Kirby Burrows MD Referring Provider Active Sta rt: April 13, 2025 End: April 13, 2025 Ship Cleaner Relationship Specialty Start Date End Date Nacho Ferrera DO [address] [place] [address] PCP - General Family Medicine 10/03/24 Nacho Ferrera [address] [place] [address] Referring Family Medicine 10/03/24 Source Comments (unrecognize d section and content) In the event this informatio n is protected by the Federal Confidentiality of Alcohol and Drug Abuse Patient Records regulations: The Federal rules restrict any use of the information to criminally investigate or prosecute any alcohol or drug abuse patient.[facility] the event this information is protected by the Federal Confidentiality of Alcohol and Drug Abuse Patient Records regulations: The Federal rules restrict any use of the information to criminally investigate or prosecute any alcohol or drug abuse patient.[facility] the event this information is protected by the Federal Confidentiality of Alcohol and Drug Abuse Patient Records regulations: The Federal rules restrict any use of the information to criminally investigate or prosecute any alcohol or drug abuse patient.[facility] the event this information is protected by the Federal Confidentiality of Alcohol and Drug Abuse Patient Records regulations: The Federal rules restrict any use of the information to criminally investigate or prosecute any alcohol or drug abuse patient.[facility] the event this information is protected by the Federal Confidentiality of Alcohol and Drug Abuse Patient Records regulations: The Federal rules restrict any use of the information to criminally investigate or prosecute any alcohol or drug abuse patient.[facility] the event this information is protected by the Federal Confidentiality of Alcohol and Drug Abuse Patient Records regulations: The Federal rules restrict any use of the information to criminally investigate or prosecute any alcohol or drug abuse patient.[facility] the event this information is protected by the Federal Confidentiality of Alcohol and Drug Abuse Patient Records regulations: The Federal rules restrict any use of the information to criminally investigate or prosecute any alcohol or drug abuse patient.[facility] the event this information is protected by the Federal Confidentiality of Alcohol and Drug Abuse Patient Records regulations: The Federal rules restrict any use of the information to criminally investigate or prosecute any alcohol or drug abuse patient.[facility] the event this information is protected by the Federal Confidentiality of Alcohol and Drug Abuse Patient Records regulations: The Federal rules restrict any use of the information to criminally investigate or prosecute any alcohol or drug abuse patient.[facility] the event this information is protected by the Federal Confidentiality of Alcohol and Drug Abuse Patient Records regulations: The Federal rules restrict any use of the information to criminally investigate or prosecute any alcohol or drug abuse patient.[facility] the event this information is protected by the Federal Confidentiality of Alcohol and Drug Abuse Patient Records regulations: The Federal rules restrict any use of the information to criminally investigate or prosecute any alcohol or drug abuse patient.[facility] Reason for Visit (unrecogniz ed section and content) Reason Comments Graves Disease Specialty Diagnoses / Procedures Referred By Contac t Referred To Contact Endocrinology / ENDOCRINOLOGY Diagnoses Graves disease Graves Disease Procedures PHYS/QHP TELEPHONE EVALUATION 5-10 MIN [place] [address] [place] [address] Referral ID Status Reason Start Date Expiration Date V isits Requested Visits Authorized [id number] Denied Clearance Not Met - Admin/Chairm an/Director Advise to Postpone/Res chedule or Not Proceed 05/21/2023 08/19/2023 1 0 Reason Comments Radiology XR Reason Comments New Pain (Shoulder Pain) Specialty Diagnoses / Procedures Referred By Contac t Referred To Contact MR IMAGING Diagnoses Glenoid labral tear, right, initial encounter Tendinopathy of right rotator cuff Procedures MRI SHOULDER WO IVCON RIGHT MRI ANY JT UPPER EXTREMITY W/O CONTRAST MATRL Dee Glasgow, DO [address] [place] [address] [place] [address] Referral ID Status Reason Start Date Expiration Date V isits Requested Visits Authorized [id number] Closed Auto-Generat ed Referral Clearance Not Met - Admin/Chairm an/Director Advise to Postpone/Res chedule or Not Proceed 10/25/2024 12/26/2024 1 1 Reason Comments Other Pelvic mass Specialty Diagnoses / Procedures Referred By Contac t Referred To Contact Gynecologic Oncology Diagnoses Right adnexal mass Procedures NM OFFICE/OUTPATIENT NEW HIGH MDM 60 MINUTES Inna Bustillos, DO [address] [place] [address] Phone: tel: fax: [facility] Gynecologic Oncology - [place] [address] [place] [address] Phone: tel: fax: Referral ID Status Reason Start Date Expiration Date Visits Re quested Visits Authorized [id number] Closed 10/26/2024 10/26/2025 1 1 Reason Comments Follow Up Reason Comments Post-op Visit No incision issues, no concerns with bowel or bladder function. Scheduled Active and Recently Administ ered Medications (unrecognized section and content) Medication Order 11/04/2024 11/05/2024 11/06/2024 acetaminophen (Tylenol) tablet 1,000 mg (COMPLETED) 1,000 mg, Oral, Once, On Wed11/06/24 at 1200, For 1 dose, Preprocedure, Maximum dose of acetaminophen is 4000 mg from all sources in 24 hours. Do not administer if patient has taken tylenol <4 hours earlier. Do not give if contraindicated ie. patient has active liver disease or cirrhosis. Please administer 60 min prior to procedure. 1215 (Given - Provid er: Latisha Sorto RN) aprepitant (Emend) capsule 40 mg (COMPLETED) 40 mg, Oral, Once, On Wed11/06/24 at 1300, For 1 dose, Preprocedure 1255 (Given - Provid er: Latisha Sorto RN) ePHEDrine injection 25 mg (COMPLETED) 25 mg, IntraMUSCular, Once, On Wed11/06/24 at 1830, For 1 dose, Recovery (only) 1837 (New Bag - Prov ider: Rhina Muñoz RN) famotidine (Pepcid) tablet 20 mg (COMPLETED)(Linked Group 1) 20 mg, Oral, Once, On Wed11/06/24 at 1200, For 1 dose, Preprocedure, IV or ORAL 1215 (Given - Provid er: Latisha Sorto RN) sodium chloride 0.9% (NS) flush 10 mL 10 mL, IntraVENous, Every 12 hours scheduled (2 times per day), First dose on Wed11/06/24 at 2100, Recovery (only) 2100 (Canceled Entry - Provider: Automatic Discharge Provider - Comment: Automatically canceled at discontinue of medication order) sodium chloride 0.9% (NS) flush 5-40 mL 5-40 mL, IntraVENous, Every 12 hours, First dose on Wed11/06/24 at 1200, Preprocedure, For Line Patency: Peripheral IV = 5 mL; Midline or Central Line = 10 mL/lumen. If following IV push medication, administer flush at same rate as the IV push. Flush volume is determined by type of infusion therapy being given. For non-viscous solutions use: Peripheral IV = 5 mL Midline or Central Line = 10 mL/lumen For viscous solutions (i.e. blood components, parenteral nutrition, contrast media, or after obtaining blood sample) use: Peripheral IV = 10 mL Midline or Central Line = 20 mL/lumen 1200 (Canceled Entry - Provider: Automatic Discharge Provider - Comment: Automatically canceled at discontinue of medication order) Continuous Medication Order 11/04/2024 11/05/2024 11/06/2024 lactated Ringer's (LR) infusion 50 mL/hr, IntraVENous, Continuous, Starting on Wed11/06/24 at 1200, Preprocedure, Upon admission to sameday - please start iv if patient does not have iv access. Use 500ml NS for patients on dialysis. 1215 (New Bag - Prov ider: Latisha Sorto RN)1312 (Continued by Anesthesia - Provider: Alvin New CRNA)1411 (Anesthesia Volume Adjustment - Provider: Alvin New CRNA)1436 (Stopped - Provider: Alvin New CRNA) lactated ringers infusion 125 mL/hr, IntraVENous, Continuous, Starting on Wed11/06/24 at 1430, Recovery (only) 1430 (Canceled Entry - Provider: Automatic Discharge Provider - Comment: Automatically canceled at discontinue of medication order) PRN Medication Order 11/04/2024 11/05/2024 11/06/2024 absorbable hemostat (SURGICEL) 3G powder (CANCELED) As needed, Starting on Wed11/06/24 at 1409, Intraprocedure 1409 (Given - Provid er: Pedro Edwards MD) ALPRAZolam (Xanax) disintegrating tablet 0.25 mg 0.25 mg, Oral, Once PRN, anxiety, Starting on Wed11/06/24 at 1155, For 1 dose, Preprocedure, Please do not administer prior to obtaining consent and / or history and physical. Chlorhexidine Gluconate Cloth 2 % cloth (COMPLETED) Topical, PRN, no prior CHG bath to planned surgical site, Starting on Wed11/06/24 at 1154, For 1 dose, Preprocedure, Chlorhexidine Cloth 2% topically to planned surgical site once PRN for outpatients who did not perform CHG bath/shower as instructed or for ED patients and inpatients 1217 (Given - Provid er: Latisha Sorto RN) diphenhydrAMINE (BENADryl) injection 12.5 mg 12.5 mg, IntraVENous, Once PRN, itching, Starting on Wed11/06/24 at 1426, For 1 dose, Recovery (only) fentaNYL (Sublimaze) injection 25 mcg 25 mcg, IntraVENous, Every 5 min PRN, moderate pain (4-6), Starting on Wed11/06/24 at 1426, For 3 doses, Recovery (only), Phase I and Phase II- Initial therapy for moderate pain (4-6). Restricted to a 90 minute time frame starting when the patient can verbally state their pain score. If after 2 doses the pain score does not decrease by more than one point, then call the provider. If oral meds are utilized, do not return to initial therapy medications. 1508 (Given - Provid er: Marielle Hair RN)1608 (Given - Provider: Marielle Hair RN) fentaNYL (Sublimaze) injection 50 mcg 50 mcg, IntraVENous, Every 5 min PRN, severe pain (7-10), Starting on Wed11/06/24 at 1426, For 3 doses, Recovery (only), Phase I and Phase II- Initial therapy for severe pain (7-10). Restricted to a 90 minute time frame starting when the patient can verbally state their pain score. If after 2 doses the pain score does not decrease by more than one point, then call the provider. If oral meds are utilized, do not return to initial therapy medications. 1451 (Given - Provid er: Marielle Hair RN) hydrALAZINE (Apresoline) injection 5 mg(Linked Group 2) 5 mg, IntraVENous, Every 15 min PRN, high blood pressure, for SBP greater than 160 mmHg for 2 consecutive measurements taken from different sites, Starting on Wed11/06/24 at 1426, For 2 doses, Recovery (only), PRN for SBP > 160 for 2 consecutive measurements, and if one of the following conditions is met: 1) If IV labetolol is ineffective. 2) If HR is under 60. 3) If patient has heart block, COPD or asthma. If both labetalol and hydralazine ineffective, notify anesthesia provider. labetalol (Normodyne,Trandate) injection 5 mg(Linked Group 2) 5 mg, IntraVENous, Every 10 min PRN, high blood pressure, for SBP greater than 160 mmHg for 2 consecutive measurements taken from different sites., Starting on Wed11/06/24 at 1426, For 2 doses, Recovery (only), PRN for SBP >160 for 2 consecutive measurements, if HR is 60 or greater. If beta jennifer is contraindicated (HR less than 60, heart block, COPD or asthma) use hydralazine IV order. ondansetron (Zofran) injection 4 mg (COMPLETED) 4 mg, IntraVENous, Once PRN, nausea, Starting on Wed11/06/24 at 1426, For 1 dose, Recovery (only), Initial antiemetic therapy. 1557 (Given - Provid er: Lakisha Rodriguez RN) oxyCODONE (Roxicodone) immediate release tablet 5 mg (COMPLETED)(Linked Group 3) 5 mg, Oral, Every 4 hours PRN, moderate pain (4-6), Starting on Wed11/06/24 at 1426, For 1 dose, Recovery (only), PHASE II 1638 (Given - Provid er: Marielle Hair RN) sodium chloride 0.9 % bolus 500 mL 500 mL, IntraVENous, at 1,000 mL/hr, Administer over 0.5 Hours, PRN, Anti-nausea, Starting on Wed11/06/24 at 1426, Recovery (only), Indications: Anti-nausea 1557 (New Bag - Prov ider: Lakisha Rodriguez RN)1627 (Due: Stopped - Provider: Lakisha Rodriguez RN) sodium chloride 0.9 % infusion 5-250 mL/hr, IntraVENous, PRN, if patient receiving piggyback infusions and maintenance fluids are not ordered OR KVO fluids to protect IV site / prevent frequent line interruptions / long duration, Starting on Wed11/06/24 at 1155, Preprocedure, For piggyback infusion, administer at same rate as piggyback for a total of 25 mL. Enter 25 mL into dose field and piggyback rate into rate field of order. If piggyback is infusing at a rate less than 100 mL/hr, enter 25 mL into dose field and 100 mL/hr into rate field of order. For KVO fluids, enter rate of 20 mL/hr or less into rate field of order. sodium chloride 0.9 % infusion 5-250 mL/hr, IntraVENous, PRN, if patient receiving piggyback infusions and maintenance fluids are not ordered OR KVO fluids to protect IV site / prevent frequent line interruptions / long duration, Starting on Wed11/06/24 at 1154, Preprocedure, For piggyback infusion, administer at same rate as piggyback for a total of 25 mL. Enter 25 mL into dose field and piggyback rate into rate field of order. If piggyback is infusing at a rate less than 100 mL/hr, enter 25 mL into dose field and 100 mL/hr into rate field of order. For KVO fluids, enter rate of 20 mL/hr or less into rate field of order. sodium chloride 0.9 % infusion 5-250 mL/hr, IntraVENous, PRN, if patient receiving piggyback infusions and maintenance fluids are not ordered OR KVO fluids to protect IV site / prevent frequent line interruptions/ long duration, Starting on Wed11/06/24 at 1426, Recovery (only), For piggyback infusion, administer at same rate as piggyback for a total of 25 mL. Enter 25 mL into dose field and piggyback rate into rate field of order. If piggyback is infusing at a rate less than 100 mL/hr, enter 25 mL into dose field and 100 mL/hr into rate field of order. For KVO fluids, enter rate of 20 mL/hr or less into rate field of order. sodium chloride 0.9 % irrigation solution (CANCELED) As needed, Starting on Wed11/06/24 at 1334, Intraprocedure 1334 (Given - Provid er: Pedro Edwards MD) sodium chloride 0.9% (NS) flush 10 mL 10 mL, IntraVENous, PRN, line care, Starting on Wed11/06/24 at 1426, Recovery (only), After every IV line use sodium chloride 0.9% (NS) flush 5-40 mL 5-40 mL, IntraVENous, PRN, line care, After every IV line use, Starting on Wed11/06/24 at 1155, Preprocedure, For Line Patency: Peripheral IV = 5 mL; Midline or Central Line = 10 mL/lumen. If following IV push medication, administer flush at same rate as the IV push. Flush volume is determined by type of infusion therapy being given. For non-viscous solutions use: Peripheral IV = 5 mL Midline or Central Line = 10 mL/lumen For viscous solutions (i.e. blood components, parenteral nutrition, contrast media, or after obtaining blood sample) use: Peripheral IV = 10 mL Midline or Central Line = 20 mL/lumen sodium chloride 0.9% (NS) flush 5-40 mL 5-40 mL, IntraVENous, PRN, line care, After every IV line use, Starting on Wed11/06/24 at 1154, Preprocedure, For Line Patency: Peripheral IV = 5 mL; Midline or Central Line = 10 mL/lumen. If following IV push medication, administer flush at same rate as the IV push. Flush volume is determined by type of infusion therapy being given. For non-viscous solutions use: Peripheral IV = 5 mL Midline or Central Line = 10 mL/lumen For viscous solutions (i.e. blood components, parenteral nutrition, contrast media, or after obtaining blood sample) use: Peripheral IV = 10 mL Midline or Central Line = 20 mL/lumen sterile water irrigation solution (CANCELED) As needed, Starting on Wed11/06/24 at 1334, Intraprocedure 1334 (Given - Provid er: Pedro Edwards MD) Linked Groups Order Group 1: famotidine (Pepcid) tablet 20 mg (COMPLETED)Jump to med 20 mg, Oral, Once, On Wed11/06/24 at 1200, For 1 dose, Preprocedure, IV or ORAL Or famotidine (Pepcid) 20 mg in sodium chloride (PF) 0.9 % 10 mL injection (COMPLETED) 20 mg, IntraVENous, Administer over 2 Minutes, Once, On Wed11/06/24 at 1200, For 1 dose, Preprocedure, IV or ORAL Group 2: labetalol (Normodyne,Trandate) injection 5 mgJump to med 5 mg, IntraVENous, Every 10 min PRN, high blood pressure, for SBP greater than 160 mmHg for 2 consecutive measurements taken from different sites., Starting on Wed11/06/24 at 1426, For 2 doses, Recovery (only), PRN for SBP >160 for 2 consecutive measurements, if HR is 60 or greater. If beta jennifer is contraindicated (HR less than 60, heart block, COPD or asthma) use hydralazine IV order. Or hydrALAZINE (Apresoline) injection 5 mgJump to med 5 mg, IntraVENous, Every 15 min PRN, high blood pressure, for SBP greater than 160 mmHg for 2 consecutive measurements taken from different sites, Starting on Wed11/06/24 at 1426, For 2 doses, Recovery (only), PRN for SBP > 160 for 2 consecutive measurements, and if one of the following conditions is met: 1) If IV labetolol is ineffective. 2) If HR is under 60. 3) If patient has heart block, COPD or asthma. If both labetalol and hydralazine ineffective, notify anesthesia provider. Group 3: oxyCODONE (Roxicodone) immediate release tablet 5 mg (COMPLETED)Jump to med 5 mg, Oral, Every 4 hours PRN, moderate pain (4-6), Starting on Wed11/06/24 at 1426, For 1 dose, Recovery (only), PHASE II Or oxyCODONE (Roxicodone) immediate release tablet 10 mg (COMPLETED) 10 mg, Oral, Every 4 hours PRN, severe pain (7-10), Starting on Wed11/06/24 at 1426, For 1 dose, Recovery (only), PHASE II FOR RECORDS PERTAINING TO PATIENTS WHO ARE [...] BE BASED ON THE PRIMARY CLINICAL RECORDS. [employer] [facility]. provides no warranty or guarantee of the accuracy or completeness of information in this document.
== END | disposition home or self-care (01) ==
LOC: MTLAB 11:23
PROVIDERS: PCP Family Medicine; Referring Provider Internal Medicine Endocrinology, Diabetes & Metabolism; Visit Provider Internal Medicine Endocrinology, Diabetes & Metabolism
DX: E05.00 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xic crisis or storm (principal)
CPT/HCPCS: 36415; 84439; 84481

== ENCOUNTER → 2025-05-10 | Outpatient (CLI) | payer OTHER, SELFPAY ==
[2025-05-10 10:54] LABS: Free T3 4.1 pg/mL (2.18-3.98)
== END | disposition home or self-care (01) ==
LOC: MTLAB 08:17
PROVIDERS: PCP Family Medicine; Referring Provider Internal Medicine Endocrinology, Diabetes & Metabolism; Visit Provider Internal Medicine Endocrinology, Diabetes & Metabolism
DX: E05.00 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xic crisis or storm (principal)
CPT/HCPCS: 36415; 84439; 84481

== ENCOUNTER → 2025-05-25 | Outpatient (CLI) | payer OTHER, SELFPAY ==
[2025-05-25 13:00] LABS: Free T3 4.1 pg/mL (2.18-3.98)
== END | disposition home or self-care (01) ==
LOC: MTLAB 10:21
PROVIDERS: PCP Family Medicine; Referring Provider Internal Medicine Endocrinology, Diabetes & Metabolism; Visit Provider Internal Medicine Endocrinology, Diabetes & Metabolism
DX: E05.00 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xic crisis or storm (principal)
CPT/HCPCS: 36415; 84439; 84481

== ENCOUNTER → 2025-06-18 | Outpatient (CLI) | payer OTHER, SELFPAY ==
[2025-06-18 16:49] LABS: Free T3 2.6 pg/mL (2.18-3.98)
== END | disposition home or self-care (01) ==
LOC: MTLAB 11:10
PROVIDERS: PCP Family Medicine; Referring Provider Internal Medicine Endocrinology, Diabetes & Metabolism; Visit Provider Internal Medicine Endocrinology, Diabetes & Metabolism
DX: E05.00 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xic crisis or storm (principal)
CPT/HCPCS: 36415; 84439; 84481

== ENCOUNTER → 2025-07-06 | Outpatient (CLI) | payer OTHER, SELFPAY ==
[2025-07-06 15:01] LABS: Free T3 3.1 pg/mL (2.18-3.98)
== END | disposition home or self-care (01) ==
LOC: MTLAB 10:11
PROVIDERS: PCP Family Medicine; Referring Provider Internal Medicine Endocrinology, Diabetes & Metabolism; Visit Provider Internal Medicine Endocrinology, Diabetes & Metabolism
DX: E05.00 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xic crisis or storm (principal)
CPT/HCPCS: 36415; 84439; 84443; 84481

== ENCOUNTER → 2025-08-03 | Outpatient (CLI) | payer OTHER, SELFPAY ==
--- OUTSIDE RECORDS SUMMARY | 2025-08-03 10:03 | XMS RPT_ITS | CCD ---
Author Organization [facility] CliniSyut Care Team Providers Care Paint Supervisor Name Role Phone Care Physician, No Primary Primary Care Provider Unavailable Care Physician, No Primary Referring Provider Un available Dr. Kirby Burrows Attending Provider Care Physician, No Primary Referring Provider Un available Dr. Kirby Burrows Attending Provider DO Nacho Ferrera M Primary Care Provider [phone] DO Nacho Ferrera M Primary Care Provider [phone] DO Nacho Ferrera M Referring Provider Dr. Kirby Burrows Attending Provider Sandy Dawn DO Primary Care Provider DO Nacho Ferrera M Primary Care Provider [phone] DO Nacho Ferrera M Referring Provider Dr. Kirby Burrows Attending Provider ADEBAYO Reich Attending Provider NACHO FERRERA DO Primary Care Physician DO Nacho Ferrera M Primary Care Provider [phone] DO Nacho Ferrera M Referring Provider MARYCARMEN Orta Attending Provider [phone] Dr. Kirby Burrows Attending Provider MD Yony Phan Primary Care Provider NACHO FERRERA DO Primary Care Unavailable TINO CHRISTIANSON Attending Unavailable INNA BUSTILLOS DO Attending Unavailable NACHO FERRERA DO Primary Care Unavailable Nacho Ferrera DO Unavailable Nacho Ferrera DO Primary Care Provider ZOLTON, INNA DO Admitting Unavailable ZOLTON, INNA DO Attending Unavailable ZOLTON, INNA DO Primary Care Unavailable MARY, DANDY CNM Admitting Unavailable REICH, DANDY CNM Attending Unavailable REICH, DANDY CNM Primary Care Unavailable Peiffer DO, Sandy L. Primary Care Provider Diana LYLES, Karie Burden Unavailable Grace LYLES, Pedro Delacruz Unavailable Chris LANDSCAPE GARDENER - OPERATIONS INTELLIGENCEJazmyne Unavailable PEDRO EDWARDS Attending Unavailable ZOLTON, INNA Referring Unavailable PEIFFER, SANDY Primary Care Unavailable JAZMYNE ARGUETA Attending Unavailable PEDRO EDWARDS Attending Unavailable PEIFFER, SANDY Primary Care Unavailable PEDRO EDWARDS Attending Unavailable PEDRO EDWARDS Admitting Unavailable PEIFFER, SANDY Primary Care Unavailable NO PRIMARY CARE, Primary Care Unavailable SARIAH CONCEPCION Attending Unavailable ZOLTON, INNA R Referring Unavailable ZOLTON DO, INNA Attending Unavailable IBAN , NACHO Primary Care Unavailable Yony Phan MD Primary Care Provider [phone] Dr. Kirby Burrows MD Attending Provider Dr. Kirby Burrows MD Referring Provider Yony Phan MD Referring Provider [phone] David HUBBARD-C, Earnestine Attending Provider Yony Phan MD Primary Care Provider Dr. Kirby Burrows MD Attending Provider Dr. Kirby Burrows MD Referring Provider NACHO FERRERA Primary Care Unavailabl e DEE GLASGOW Attending Unavailable NACHO FERRERA Primary Care Unavaildion e DEE GLASGOW Referring Unavailable DEE GLASGOW Attending Unavailable DANIEL BOURGEOIS Referring Unavailable NACHO FERRERA Primary Care Unavailabl e NACHO FERRERA Primary Care Unavailabl e DEE GLASGOW Attending Unavailable IBANNACHO PRICILA Primary Care Unavailabl e DEE GLASGOW Referring Unavailable Edmund HEALTH SAFETY SPECIALIST-C, Zuleyma Attending Provider [phone] Edmund HEALTH SAFETY SPECIALIST-C, Zuleyma Referring Provider [phone] Emilie LYLES, [facility] Primary Care Provider King RAFAL, Dr. Orr Attending Provider King RAFAL, Dr. Orr Referring Provider Iban DO, Kaci Primary Care Provider [facility] [phone] [facility]LES, [facility] Referring Provider King RAFAL, Dr. Orr Attending Provider [phone] King RAFAL, Dr. Orr Referring Provider Emilie LYLES, [facility] Primary Care Provider King RAFAL, Dr. Orr Attending Provider Emilie, Chalon Primary Care Unavailable Emilie, Chalon Referring Unavailable Earnestine Hernandez Attending Unavailable Emilie, Chalon Referring Unavailable Markos, Kirby Attending Unavailable Emilie, Chalon Primary Care Unavailable Iban, Kaci Primary Care Unavailable Markos, Kirby Referring Unavailable Markos, Kirby Attending Unavailable Markos, Kirby Attending Unavailable Emilie, Chalon Primary Care Unavailable Emilie, Chalon Referring Unavailable Edmund, Zuleyma Referring Unavailable EdmundZuleyma Attending Unavailable Emilie, Chalon Primary Care Unavailable Emilie, Chalon Primary Care Unavailable Markos, Kirby Referring Unavailable Markos, Kirby Attending Unavailable Iban, Kaci Primary Care Unavailable Markos, Kirby Referring Unavailable Markos, Kirby Attending Unavailable Iban, Kaci Primary Care Unavailable Markos, Kirby Referring Unavailable Markos, Kirby Attending Unavailable Iban, Kaci Primary Care Unavailable Markos, Kirby Referring Unavailable Markos, Kirby Attending Unavailable Iban, Kaci Primary Care Unavailable Markos, Kirby Referring Unavailable Markos, Kirby Attending Unavailable Markos, Kirby Referring Unavailable Emilie, Chalon Primary Care Unavailable Markos, Kirby Attending Unavailable Markos, Kirby Attending Unavailable Emilie, Chalon Primary Care Unavailable Markos, Kirby Referring Unavailable Markos, Kirby Attending Unavailable Emilie, Chalon Primary Care Unavailable Markos, Kirby Referring Unavailable Markos, Kirby Referring Unavailable Emilie, Chalon Primary Care Unavailable Markos, Kirby Attending Unavailable Dandy Reich Consulting Unavailable Markos, Kirby Referring Unavailable Emilie, Chalon Primary Care Unavailable Markos, Kirby Attending Unavailable Markos, Kirby Referring Unavailable Emilie, Chalon Primary Care Unavailable Markos, Kirby Attending Unavailable Emilie, Chalon Primary Care Unavailable Markos, Kirby Referring Unavailable Markos, Kirby Attending Unavailable Emilie, Chalon Referring Unavailable Emilie, Chalon Primary Care Unavailable Dandy Reich Attending Unavailable Allergies Allergy Classification Reported Allergen(s) Allergy Type Date of Onset Reaction(s) Facility (4 sources) Gluten Propensity to adverse reactions 11-03-2024 [facility] Medications Current Medications Medication Drug Class(es) Dates [...] twenty-four hours 1,000 mg, Oral, Once, On 11/06/24 at 1200, For 1 dose, Preprocedure, Maximum [...] in the nose once daily. Desogestrel-Ethinyl Estradiol (8 sources) Progestin, Estrogen Start: 5 take 0.15 tablet by mouth once daily Desogestrel-Ethinyl Estradiol (Apri) 0.15-0.03 mg tablet Active 1 {tbl} PO daily February 15, 2025 12:00am docusate sodium 100 mg oral capsule (3 sources) Start: 4 End: 5 take 1 capsule by mouth [...] 11/06/2024 11/16/2024 Active take 2 tablets by mo uth every eight hours as needed for pain ibuprofen 200 MG tablet Take 400 mg by mouth every 8 hours as needed for mild pain (1-3). Active Magnesium (3 sources) take 240 mg by mouth once daily MAGNESIUM PO Take 240 mg by mouth daily. Active [place]-3 Fatty Acids (Fish Oil Concentrate) 1,000 mg capsule (20 sources) Start: 12-12-2019 take 1 capsule by mouth once daily [place]-3 Fatty Acids (Fish Oil Concentrate) 1,000 mg capsule Active 1000 mg PO DAILY December 12, 2019 1:00am Start: 12-12-2019 take 1 capsule by mo uth once daily [place]-3 Fatty Acids (Fish Oil Concentrate) 1,000 mg capsule Active 1000 MG PO DAILY December 12, 2019 12:00am Start: 12-12-2019 take 1 capsule by mo uth once daily [place]-3 Fatty Acids (Fish Oil Concentrate) 1,000 mg capsule Active 1000 MG PO DAILY December 12, 2019 1:00am [place]-3 Fatty Acids (Fish Oi l) 1000 MG capsule delayed-release (3 sources) [place]-3 Fatty Ac ids (Fish Oil) 1000 MG [...] Comment on above: Take 1,200 mg by [facility] once daily. oxyCODONE hydrochloride 5 mg oral tablet (2 sources) Opioid Agonist Start: 11-06-20 24 End: 11-11-19 25 take 1 tablet by mouth every six hours as needed for pain oxyCODONE (Roxicodone) 5 MG immediate release tablet Take 1 tablet (5 mg) by mouth every 6 hours as needed for severe pain (7-10) for up to 5 days. 12 tablet 11/06/2024 4:17 PM EST 11/06/2024 11/11/2024 Active Qvdlvg06-Zuba Fum-Folic Ac-Om3 (One A Day Women's Dha) 28 mg iron- 800 mcg combo pack (8 sources) Start: 07-28-20 24 Egopvw53-Ednw Fum-Folic Ac-Om3 (One A Day Women's Dha) 28 mg iron- 800 mcg combo pack Active NMA PO July 28, 2024 12:00am 75-Iron Rup-Klcst-Bg1 (One A Day Women's Dha) 28 mg iron- 800 mcg combo pack (1 source) Start: 07-28-20 24 75-Iron Vmu-Hrycg-Hi8 (One A Day Women's Dha) 28 mg iron- 800 mcg combo pack Active NMA PO July 28, 2024 12:00am Vit-Fe Fumarate-FA ( PO) (3 sources) Vit-Fe Fumarate-FA ( PO) Take by mouth. Active Probiotic Product (PROBIOTIC PO) (3 sources) Probiotic Produc t (PROBIOTIC PO) Take by mouth. Active propylthiouracil 50 mg oral tablet (20 sources) Thyroid Hormone Synthesis Inhibitor Start: 04-27-20 End: 05-10-20 take 1 tablet by mouth three times daily Propylthiouracil 50 mg tablet Active 100 mg PO THREE TIMES A DAY May 10, 2025 2:16pm Start: 03-28-2025 End: 04-27-2025 take 2 tablets by mouth once daily, then take 3 tablets by mouth once daily Propylthiouracil 50 mg tablet Discontinued 0 PO daily 204 March 28, 2025 4:37pm April 27, 2025 1:39pm 100 mg, alternating with 150 mg orally daily; Start: 08-25-2024 End: 09-14-2024 take 1 tablet by mouth twice daily Propylthiouracil 50 mg tablet Discontinued 50 mg PO TWICE A DAY 180 August 25, 2024 9:55am September 14, 2024 1:29pm Start: 03-09-2024 End: 08-25-2024 take 2 tablets by mouth twice daily in the morning, then take 1 tablet by mouth twice daily in the evening Propylthiouracil 50 mg tablet Discontinued 0 PO TWICE A DAY 120 March 09, 2024 8:49am August 25, 2024 [...] Propylthiouracil Active 0 PO TWICE A DAY 120 March 09, 2024 8:49am 100 mg am 50 mg pm orally twice a day; Start: 11-08-2023 End: 03-28-2025 take 1 tablet by mouth once daily, then take 1 tablet by mouth twice daily Propylthiouracil 50 mg tablet Discontinued 0 PO daily 90 January 08, 2025 2:27pm March 28, 2025 [...] once daily. ubidecarenone 10 mg oral capsule (9 sources) Start: 07-28-2024 Coenzyme Q10 (Co Q-10) 10 mg capsule Active 10 mg PO ONCE July 28, 2024 12:00am vitamin b12 1 mg oral tablet (11 sources) Vitamin B12 take 1 tablet by mouth once daily cyanocobalamin (VITAMIN B-12) 1,000 mcg tab Take 1,000 mcg by mouth once daily. Active Comment on above: Take 1,000 mcg by [facility] once daily. Completed/Discontinued Medications Medication Drug [...] mg / clavulanate 125 mg oral tablet (9 sources) Penicillin-class Antibacterial Start: 04-19-2024 End: 07-28-2024 Amoxicillin-Pot Clavulanate 875-125 mg tablet Discontinued 1 {tbl} PO Q12H 14 0 April 19, 2024 12:00am July 28, 2024 [...] For 1 dose, Recovery (only) Norethindrone-E.Estr adiol-Iron (20 sources) Estrogen Start: 04-21-2021 End: 10-08-2022 Norethindrone-E. [...] 12-12-2019 End: 10-08-2022 Norethindrone Ac-Eth Estradiol ( (21)) 1.5-30 mg-mcg tablet Discontinued 1 {tbl} PO DAILY December 12, 2019 1:00am October 08, 2022 9:12am take 1 tablet by catherine th once daily, then take 0.05 tablet by mouth once Norethindrone Acet-Ethinyl Est (,) 1-20 mg-mcg per tablet Take 1 tablet by mouth once daily. Active take 1 tablet by catherine once daily, then take 0.05 tablet by mouth once Norethindrone Acet-Ethinyl Est (,) 1-20 mg-mcg per tablet Take 1 tablet by mouth once daily. 0 Active Comment on above: Take 1 tablet by [facility] once daily. 2 ml fentaNYL 0.05 mg/ml [...] not return to initial therapy medications. FIDELINA (20 sources) Start: 04-21-2021 End: 09-09-2023 FIDELINA Discontinued PO 0 April 082020 12:00am September 09, 2023 3:01pm Start: 04-21-2021 End: 09-09-2023 FIDELINA Discontinued PO April 12:00am September 09, 2023 3:01pm Start: 04-21-2021 End: 09-09-2023 FIDELINA Discontinued PO April 11:00pm September 09, 2023 2:01pm Start: 04-21-2021 FIDELINA Active PO April 20, 2021 11:00pm Start: 04-21-2021 FIDELINA Active PO April 21, 2021 12:00am glycopyrrolate 1 mg oral tab let (20 sources) Start: 04-21-2021 End: 10-08-2022 Glycopyrrolate 1 [...] mg tablet Discontinued 20 mg PO DAILY 180 0 July 01, 2023 10:59am September 09, 2023 3:27pm Start: 03-05-2023 End: 02-21-2024 take 20 mg by mouth once daily Methimazole Discontinue d 20 MG PO DAILY 180 July 01, 2023 10:59am September 09, 2023 3:27pm Start: 02-08-2023 End: 03-05-2023 Methimazole 10 mg tablet Discontinued 15 mg PO DAILY 135 1 February 08, 2023 7:39am March 05, 2023 9:29pm Start: 02-08-2023 End: 03-05-2023 take 15 mg by mouth once daily Methimazole Discontinue d 15 MG PO DAILY 135 February 08, 2023 7:39am March 05, 2023 9:29pm Start: 08-16-2020 End: 10-21-2020 Methimazole 10 mg tablet Discontinued 0 PO DAILY 07 12October 10, 2020 2:11pm October 21, 2020 9:23am 10mg 6 days a week and 5 mg 1 days per week. Start: 12-14-2019 End: 08-16-2020 Methimazole 10 mg tablet Discontinued 0 PO DAILY 07 03December 14, 2019 4:17pm August 16, 2020 8:02am [...] take 1 tablet by mouth once daily Methimazole 10 mg tablet Discontinued 10 mg PO DAILY October 15, 2022 12:01pm February 08, 2023 7:39am Comment on above: Take 1 tablet by [facility] once daily. 2 ml ondansetron 2 mg/ml injection (12 sources) Serotonin-3 Receptor Antagonist Start: 11-06-2024 End: 11-06-2024 4 mg, IntraVENous, Once PRN, nausea, Starting on Wed11/06/24 at 1426, For 1 dose, Recovery (only), Initial antiemetic therapy. Start: 12-29-2023 End: 03-09-2024 take 1 tablet by mouth every six hours as needed for nausea and vomiting Ondansetron Hcl 4 mg tablet Discontinued 4 mg PO EVERY 6 HOURS as needed for nausea and vomiting 20 0 December 29, 2023 1:00am March 09, 2024 8:38am oseltamivir 75 mg oral capsule (10 sources) Neuraminidase Inhibitor Start: 12-29-2023 End: 01-03-2024 take 1 capsule by mouth every twelve hours Oseltamivir (Tamiflu) 75 mg capsule Discontinued 75 mg PO Q12H 10 5 0 December 29, 2023 1:00am January 02, 2024 [...] Da te Episodic/Chronic Contraceptive and procreative management (12 sources) Patient encounter status; Translations: [Encounter for other general counseling and advice on procreation] 11-11-2023 Episodic Comment on above: to discuss with endo changing medications for hyperthyroidism-start on PNV-reviewed natural cycles and ways to optimize fertility. Female infertility (12 sources) Primary female infertility; Translations: [Female infertility, unspecified] Onset: 10-30-2024 10-29-2024 Chronic Influenza (11 sources) Influenza due to Influenza A virus; [...] Onset: 11-06-2024 Episodic Other lower respiratory disease (10 sources) Cough; Translations: [Cough] 12-29-2023 Episodic Other nervous system disorders (18 sources) Paresthesia; Translations: [Paresthesia of skin] 10-08-2022 Episodic Other nervous system disorders (2 sources) Paresthesia of skin; Translations: [Disturbance of skin sensation] Episodic Other non-traumatic joint disorders (11 sources) Loose body in left elbow joint; Translations: [Loose body in left elbow] Onset: 08-05-2021 08-05-2021 Chronic Other upper respiratory disease (10 sources) Respiratory tract congestion; Translations: [Other specified diseases of upper respiratory tract] 12-29-2023 Episodic Otitis media and related conditions (9 sources) Acute right otitis media; Translations: [Otitis media, unspecified, right ear] 04-19-2024 Episodic Residual codes; unclassified (10 sources) Generalized aches and pains; Translations: [Pain, unspecified] 12-29-2023 Episodic Residual codes; unclassified (1 source) Pain; Translations: [Pain, unspecified] 10-03-2024 Episodic Residual codes; unclassified (14 sources) Infertile 01-01-2025 Episodic Comment on above: [...] Value Interpretation Reference Range Facility Free T3on 07-06-2025 Free T3 [Mass/Vol] 3.1 pg/mL Normal 2.18-3.98 [facility] Comment on above: Performed By: #### L [id number], [id number], L506.0400 #### [facility] [address] [place], [place], [id number] Free B4Gdvecfn By: Kirby Burrows on 07-06-2025 Free T3 [Mass/Vol] 3.1 pg/mL 2.18-3.98 [facility] T4 Free Directon 07-06-2025 T4 FREE DIRECT 0.80 ng/dL Normal 0.76-1.46 [facility] Comment on above: Performed By: #### L [id number], [id number], L506.0400 #### [facility] [address] [place], [place], [id number] T4 freeOrdered By: Kirby Burrows on 07-06-2025 Free T4 [Mass/Vol] 0.80 ng/dL 0.76-1.46 [facility] TSH DL <= 0.005 mIU/L QnOrde red By: Kirby Burrows on 07-06-2025 TSH Qn 0.602 uIU/mL 0.300-4.200 [facility] Thyroid Stim Hormone (TSH)on 07-06-2025 TSH 0.602 uIU/mL Normal 0.300-4.200 [facility] Comment on above: Performed By: #### L [id number], [id number], L506.0400 #### [facility] [address] [place], [place], [address] Free T3on 06-18-2025 Free T3 [Mass/Vol] 2.6 pg/mL Normal 2.18-3.98 [facility] Comment on above: Performed By: #### L [id number], [id number], L506.0400 #### [facility] [address] [place], [place], [id number] Free R4Xwoydrl By: Kirby Burrows on 06-18-2025 Free T3 [Mass/Vol] 2.6 pg/mL 2.18-3.98 [facility] T4 Free Directon 06-18-2025 T4 FREE DIRECT 0.70 ng/dL Low 0.76-1.46 [facility] Comment on above: Performed By: #### L [id number], [id number], L506.0400 #### [facility] [address] [place], [place], [address] T4 freeOrdered By: Kirby Burrows on 06-18-2025 Free T4 [Mass/Vol] 0.70 ng/dL Low 0.76-1.46 [facility] Free A8Ediohwt By: Kirby Burrows on 05-25-2025 Free T3 [Mass/Vol] 4.1 pg/mL High 2.18-3.98 [facility] Comment on above: Performed By: #### L [id number], [id number], L506.0400 #### [facility] [address] [place], [address] T4 Free Directon 05-25-2025 T4 FREE DIRECT 1.20 ng/dL Normal 0.76-1.46 [facility] Comment on above: Performed By: #### L [id number], [id number], L506.0400 #### [facility] [address] [place], [address] T4 freeOrdered By: Kirby Burrows on 05-25-2025 Free T4 [Mass/Vol] 1.20 ng/dL 0.76-1.46 [facility] Free T3on 05-10-2025 Free T3 [Mass/Vol] 4.1 pg/mL High 2.18-3.98 [facility] Comment on above: Performed By: #### L [id number], [id number], L506.0400 #### [facility] [address] [place], [address] Free J1Quburou By: Kirby Burrows on 05-10-2025 Free T3 [Mass/Vol] 4.1 pg/mL High 2.18-3.98 [facility] T4 Free Directon 05-10-2025 T4 FREE DIRECT 1.50 ng/dL High 0.76-1.46 [facility] Comment on above: Performed By: #### L [id number], [id number], L506.0400 #### [facility] [address] [place], [address] T4 freeOrdered By: Kirby Burrows on 05-10-2025 Free T4 [Mass/Vol] 1.50 ng/dL High 0.76-1.46 [facility] Free L4Aeqzqfr By: Kirby Burrows on 04-27-2025 Free T3 [Mass/Vol] 4.9 pg/mL High 2.18-3.98 [facility] Comment on above: Performed By: #### L 506.0400, L501.96594 #### [facility] [address] [place], [place], [address] T4 Free Directon 04-27-2025 T4 FREE DIRECT 1.70 ng/dL High 0.76-1.46 [facility] Comment on above: Performed By: #### L 506.0400, L501.22568 #### [facility] [address], [place], [address] T4 freeOrdered By: Kirby Burrows on 04-27-2025 Free T4 [Mass/Vol] 1.70 ng/dL High 0.76-1.46 [facility] Free T3on 04-13-2025 Free T3 [Mass/Vol] 6.1 pg/mL High 2.18-3.98 [facility] Comment on above: Performed By: #### L [id number], [id number], L506.0400 #### [facility] [address] [place], [address] Free R2Anaevop By: Kirby Burrows on 04-13-2025 Free T3 [Mass/Vol] 6.1 pg/mL High 2.18-3.98 [facility] T4 Free Directon 04-13-2025 T4 FREE DIRECT 1.70 ng/dL High 0.76-1.46 [facility] Comment on above: Performed By: #### L [id number], [id number], L506.0400 #### [facility] [address] [place], [place], [address] T4 freeOrdered By: Kirby Burrows on 04-13-2025 Free T4 [Mass/Vol] 1.70 ng/dL High 0.76-1.46 [facility] TSH DL <= 0.005 mIU/L QnOrde red By: Kirby Burrows on 04-13-2025 TSH Qn < 0.005 uIU/mL Low 0.300-4.200 [facility] Thyroid Stim Hormone (TSH)on 04-13-2025 TSH Qn m[IU]/L Low 0.300-4.200 [facility] Comment on above: Performed By: #### L [id number], [id number], L506.0400 #### [facility] [address] [place], [address] Free T3on 03-28-2025 Free T3 [Mass/Vol] 7.8 pg/mL High 2.18-3.98 [facility] Comment on above: Performed By: #### L [id number], [id number], L506.0400 #### [facility] [address] [place], [address] Free S8Gugghac By: Elpidio on 03-28-2025 Free T3 [Mass/Vol] 7.8 pg/mL High 2.18-3.98 [facility] T4 Free Directon 03-28-2025 T4 FREE DIRECT 1.80 ng/dL High 0.76-1.46 [facility] Comment on above: Performed By: #### L [id number], [id number], L506.0400 #### [facility] [address] [place], [address] T4 freeOrdered By: Elpidio on 03-28-2025 Free T4 [Mass/Vol] 1.80 ng/dL High 0.76-1.46 [facility] TSH DL <= 0.005 mIU/L QnOrde red By: Zuleyma Shaffer on 03-28-2025 TSH Qn < 0.005 uIU/mL Low 0.300-4.200 [facility] Thyroid Stim Hormone (TSH)on 03-28-2025 TSH Qn m[IU]/L Low 0.300-4.200 [facility] Comment on above: Performed By: #### L [id number], [id number], L506.0400 #### [facility] [address] [place], [address] Biologics Injection: Tian brito 03-23-2025 Dee Glasgow DO 03/23/2025 2:15 [...] these instructions. Informed Consent Consent Obtained: Written [place] Protocol A moment to CARE was completed. [...] the bedside nurse for hospitalized patients) applicable. [facility] CNOVon 03-23-2025 CNOV Office Visit ([place] ) RITIKA VEGA ([id number]) 1985 F Date Time Provider Department 03/23/25 11:30 AM DEE GLASGOW During your visit today, we recorded the following information about you: Dee Glasgow DO 03/23/2025 2:15 PM Signed Patient presents for [...] these instructions. Informed Consent Consent Obtained: Written [place] Protocol A moment to CARE was completed. [...] Glasgow DO 03/23/2025 Referring Provider: DEE GLASGOW [[id number]] Allergies As of Date: 03/23/2025 (No Known Allergies) Date Reviewed: 03/23/2025 Reviewed by: Dee Glasgow DO - Fully Assessed Primary Visit Diagnosis:Glenoid labral tear, right, initial encounter [S43.431A] Other Visit Diagnosis:Tendinopathy of right rotator cuff [M67.911] Order(s):US SHOULDER-INJECTION RT (POC) CHANDRAKANT USE ONLY [5382855] Order #: [id number]. #:[id number]: 1 HYDROcodone-acetaminop hen (NORCO) 5-325 mg per tabletTake 1 tablet by mouth every 8 hours as needed for pain for up to 5 days.Disp: 15 tabletRfl: 0 CONSULT TO PHYSICAL THERAPY [9032] Order #: [id number]: 1 FUTURE [employer]olog[employer] Injection: R shoulder [[id number]] Order #: [id number] Prescriptions as of 03/23/2025 - HYDROcodone-acetaminop hen [...] Status:Closed by DEE GLASGOW on 03/23/25 Normal [facility] SHOULDER-INJECTION RT (PO C) CHANDRAKANT USE ONLYon 03-23-2025 [facility] Free T3on 03-15-2025 Free T3 [Mass/Vol] 7.3 pg/mL High 2.18-3.98 [facility] Comment on above: Performed By: #### L 506.0400, L501.63937, L501.9520 #### [facility] [address] [place], [place], [address] Free R7Lwnbpxe By: Kirby Burrows on 03-15-2025 Free T3 [Mass/Vol] 7.3 pg/mL High 2.18-3.98 [facility] T4 Free Directon 03-15-2025 T4 FREE DIRECT 1.90 ng/dL High 0.76-1.46 [facility] Comment on above: Performed By: #### L 506.0400, L501.41848, L501.9520 #### [facility] [address] [place], [place], [id number] T4 freeOrdered By: Kirby Burrows on 03-15-2025 Free T4 [Mass/Vol] 1.90 ng/dL High 0.76-1.46 [facility] TSH DL <= 0.005 mIU/L QnOrde red By: Kirby Burrows on 03-15-2025 TSH Qn < 0.005 uIU/mL Low 0.300-4.200 [facility] Thyroid Stim Hormone (TSH)on 03-15-2025 TSH Qn m[IU]/L Low 0.300-4.200 [facility] Comment on above: Performed By: #### L 506.0400, L501.99202, L501.9520 #### [facility] [address] [place], [place], [address] Endocrinology Visit Reporton 02-15-2025 Endocrinology Visit Report [facility] 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 Normal [facility] Free T3on 01-08-2025 Free T3 [Mass/Vol] 3.4 pg/mL Normal 2.18-3.98 [facility] Comment on above: Performed By: #### L 506.0400, L501.9520, L501.04406 #### [facility] [address] [place], [place], [address] Free [id number] By: Kirby Burrows on 01-08-2025 Free T3 [Mass/Vol] 3.4 pg/mL 2.18-3.98 [facility] Free Triiodothyronine (T3) pg/dL 3.4 pg/mL 2.18-3.98 [facility] T4 Free Directon 01-08-2025 T4 FREE DIRECT 1.30 ng/dL Normal 0.76-1.46 [facility] Comment on above: Performed By: #### L 506.0400, L501.54842 #### [facility] [address] [place], [place], [address] T4 freeOrdered By: Kirby Burrows on 01-08-2025 Free T4 [Mass/Vol] 1.30 ng/dL 0.76-1.46 [facility] TSH DL <= 0.005 mIU/L QnOrde red By: Kirby Burrows on 01-08-2025 Thyroid Stimulating Hormone (TSH) 0.102 uIU/mL Low 0.300-4.200 [facility] TSH Qn 0.102 uIU/mL Low 0.300-4.200 [facility] Thyroid Stim Hormone (TSH)on 01-08-2025 TSH 0.102 uIU/mL Low 0.300-4.200 [facility] Comment on above: Performed By: #### L 506.0400, L501.9520, L501.08729 #### [facility] [address] [place], [place], [address] MULLERon 01-06-2025 [facility] 1.29 ng/mL Normal [facility] Comment on above: Result Comment: For assays employing antibodies, the possibility exists for interference by heterophile antibodies in the samples.1 1.Westley Alaniz Interferences in Immunoassays - still a threat. Clin. Chem. 2000; 46: 0189-0054. This test was developed and its performance characteristics determined by [employer]. It has not been cleared or approved by the Food and Drug Administration. Reference Range: Females 36 - 40y: 0.42 - 8.34 Median 1.69 AMH concentrations of >= 1.06 ng/mL is correlated with a better response to ovarian stimulation, produced more retrievable oocytes and higher odds of live according to Miguel et al. Fertility and Sterility. 2010: 94:3839-8240. The current AMH test method correlates with [...] exclude an AMH-secreting ovarian tumor. Performed At: [facility] [address] [place] [id number] Chris Newton MD Ph:[phone] Performed By: #### 5 38894 #### [place] [address] [address] [employer]ing [employer] Office Visit Reporton 01-01-2025 [employer] Office Visit Report [facility] [address], [address] [place] [address] OFFICE VISIT Date of Service: 01/01/25 MR#: [id number] Acct: [id number] Name: RITIKA VEGA Rep #: [id number] : 1985 Provider: ELIECER Cortez Age/Sex: 39/F [place] [facility] [place] Status: Signed Intake Vital Signs 04/19/24 07:00 08/17/24 08:34 01/01/25 09:02 01/01/25 09:05 Height 5 ft 11 in 5 ft 11 in 5 ft 11 in 5 ft 11 in Weight: 160 lb BMI 22.3 BP 120/75 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 She follows with I for fertility. She will be undergoing a [...] all relate (more content not included)... Normal [facility] Direct serum free thyroxine (FT4) measurementOrdered By: Kirby Burrows on 12-08-2024 Free T4 [Mass/Vol] 1.11 ng/dL 0.76-1.46 [facility] Free T3on 12-08-2024 Free T3 [Mass/Vol] 3.4 pg/mL Normal 2.18-3.98 [facility] Comment on above: Performed By: #### L 506.0400, L501.92437 #### [facility] [address] [place], [place], [address] Free Y9Garliit By: Kirby Burrows on 12-08-2024 Free T3 [Mass/Vol] 3.4 pg/mL 2.18-3.98 [facility] Free Triiodothyronine (T3) pg/dL 3.4 pg/mL 2.18-3.98 [facility] Serum or plasma thyroid stim ulating hormone (TSH) measurement (units/volume)Ordered By: Kirby Burrows on 12-08-2024 TSH Qn 0.108 uIU/mL Low 0.358-3.740 [facility] T4 Free Directon 12-08-2024 T4 FREE DIRECT 1.11 ng/dL Normal 0.76-1.46 [facility] Comment on above: Performed By: #### L 506.0400, L501.80093 #### [facility] [address] [place], [place], [address] TSH QnOrdered By: Kirby Burrows on 12-08-2024 Thyroid Stimulating Hormone (TSH) 0.108 uIU/mL Low 0.358-3.740 [facility] Thyroid Stim Hormone (TSH)on 12-08-2024 TSH 0.108 uIU/mL Low 0.358-3.740 [facility] Comment on above: Performed By: #### L 506.0400, L501.79199 #### [facility] [address] [place], [address] Office Visiton 11-14-2024 Follow-up visit [id number] Ritika Vega 1985 F Date Provider Department Center 11/14/2024 JAZMYNE STRINGER [facility] 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 None Family History Problem Relation Age of Onset Depression Mother Hypertension Mother Arthritis Father Hypertension Father Heart disease Maternal Grandfather Anesthesia problems Maternal Grandmother Diabetes Maternal Grandmother Heart disease Maternal Grandmother Heart disease Paternal Grandfather Stroke Paternal Grandfather Cancer Paternal Grandmother Family Status - Relation Status Age at Mother Father Maternal Grandfather Maternal Grandmother Paternal Grandfather Paternal Grandmother Level of Service:06843 AR POSTOP FOLLOW UP VISIT RELATED TO ORIGINAL PX Reason for Visit and Comments: Post-op Visit [559] - No incision issues, no concerns with bowel or bladder function. Normal [facility] Progress Noteon 11-14-2024 Progress Note GYNECOLOGIC ONCOLOGY [...] PO Take 240 mg by mouth daily. [place]-3 Fatty Acids (Fish Oil) 1000 MG capsule [...] 124/78, pulse 61, height 1.803 m (5' 11"), weight 72.6 kg (160 lb), last menstrual [...] Follow-up with Dr. Bustillos and with primary nurse obgyn for routine care. I explained diagnosis and treatment plan; patient expressed understanding and was in agreement with the plan. Jazmyne Argueta, ONESIMO - OPERATIONS INTELLIGENCE Normal [facility] 36on 11-09-2024 36 Called pt with ronen [facility], pt verbalized understanding and had no further questions. Normal [facility] HCG ( test) Ql (U)o n 11-06-2024 Beta HCG ( test) Ql (U) [id number] [facility] Interpretation and review of laboratory results Normal [facility] NEGATIVE QC Pass [facility] POSITIVE QC Pass [facility] Preg Test, Ur Negative Negative [facility] Nursing Noteon 11-06-2024 Nursing Note Family/visitor at bedside with patient. Normal [facility] Op Noteon 11-06-2024 Op Note Date: 11/06/2024 Location: [facility] OR Name: Ritika Vega, : 1985, Diagnosis Pre-op Diagnosis * Intra-abdominal and pelvic swelling, mass and lump, unspecified site [R19.00] Post-op Diagnosis * Intra-abdominal and pelvic swelling, mass and lump, unspecified site [R19.00] Procedures LAPAROSCOPIC OVARIAN CYSTECTOMY 41217 - AR OVARIAN CYSTECTOMY UNI/BI Surgeons * Pedro Edwards [...] 11/06/24 1409 Description: RIGHT OVARIAN CYST Staff: Glove Printer: Angelina Clifton RN; Evelia Beasley RN Scrub [...] antibiotics are not indicated for this procedure. [facility] Op Note Date: 11/06/2024 Location: [facility] OR Name: Ritika Gutierrezphrey, : 1985, Diagnosis Pre-op Diagnosis * Intra-abdominal and pelvic swelling, mass and lump, unspecified site [R19.00] Post-op Diagnosis * Intra-abdominal and pelvic swelling, mass and lump, unspecified site [R19.00] Procedures LAPAROSCOPIC RIGHT OVARIAN CYSTECTOMY 41599 - AR OVARIAN CYSTECTOMY UNI/BI Surgeons * Pedro Edwards [...] 11/06/24 1409 Description: RIGHT OVARIAN CYST Staff: Glove Printer: Angelina Clifton RN; Evelia Beasley RN Scrub Person: Dread Maria Ctian Findings: Enlarged right ovary with a smooth [...] direct visualization. (more content not included)... Normal [facility] Progress Noteon 11-06-2024 Progress Note Patient feeling bett er after IM Ephedrine injection. Ambulated and ready to be discharged Normal [facility] Progress Note Per previous nursing note, patient was unable to stand due to nausea. She was placed back in bed with phase 2 monitoring with lights out to sleep. Family at bedside and call light within reach. Anesthesia paged for order of Ephedrine IM to help with nausea/vomiting. Patient states that every time she moves her head she gets "really nauseated". Upon sitting on the side of bed, then upon standing, patient vomited. Normal [facility] Progress Note Patient states she i s feeling better. We will attempt to ambulate to restroom Normal [facility] Progress Note Discharge informatio n given to the patient. Patient and family verbalized understanding of information. All questions were answered at this time. Patient denies dizziness. Vital signs are stable. Normal [facility] [id number] 11-03-2024 [id number] Medication List Accurate as of November 03, [...] hours prior to surgery. Please bring your [facility] Surgical folder with you day of surgery. [...] time and date. You may use the [employer] parking located at the main entrance on [address] and take the H elevator to the first floor for same day surgery. Take a left after exiting the elevator and check in at the desk. Or- You may use the parking in the Main deck. Take the level one bridge to the H building and follow the signs for same day surgery. Check in at the desk. [facility] 36on 10-31-2024 36 Called out to the patient to advised patient of scheduled PAT phone call, scheduled Saturday 11/03 at 0830. Patient agreed for call. Normal [facility] 36 S/w Amber verification of outpatient Cpt 90022, Plan coverage 11/08/2023 to current. CPT 92815 does not require prior authorization as long as Outpatient. Call reference# [id number]. Normal [facility] MR Shoulder - right WO contr shiloh 10-30-2024 IMPRESSION: Mild supraspinatus tendinosis with a low-grade partial-thickness tear. No high-grade or full-thickness rotator cuff tendon tear is identified. Possible superior glenoid labral tear. Head Porter Baggage: YANG Transcribe Date/Time: Oct 30 2024 8:41A Dictated by : BHARATH FREGOSO MD This examination was interpreted and the report reviewed and electronically signed by: BHARATH FREGOSO MD on Oct 30 2024 8:47AM [facility] DIVISION OF RADIOLOGY * * *Final Report* * * DATE OF EXAM: Oct 30 2024 7:50AM [facility] 0240 - MRI SHOULDER WO IVCON RT [...] No additional findings. DIVISION OF RADIOLOGY Provider, [facility] - 10/30/2024 * * *Final Report* * * DATE OF EXAM: Oct 30 2024 7:50AM [facility] 0240 - MRI SHOULDER WO IVCON RT [...] is identified. Possible superior glenoid labral tear. Head Porter Baggage: [facility] Transcribe Date/Time: Oct 30 2024 8:41A Dictated by : BHARATH FREGOSO MD This examination was interpreted and the report reviewed and electronically signed by: BHARATH FREGOSO MD on Oct 30 2024 8:47AM EST [facility] Radiology Study observation (narrative) [facility] MR Shoulder - right WO contr astOrdered By: Ccf Provider on 10-30-2024 [facility] MRI SHOULDER WO IVCON RTon 1 12-31-2023 MRI SHOULDER WO IVCON RT * * *Final Report* * * DATE OF EXAM: Oct 30 2024 7:50AM [facility] 0240 - MRI SHOULDER WO IVCON RT [...] is identified. Possible superior glenoid labral tear. 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 None Family History Problem Relation Age of Onset Depression Mother Hypertension Mother Arthritis Father Hypertension Father Heart disease Maternal Grandfather Anesthesia problems Maternal Grandmother Diabetes Maternal Grandmother Heart disease Maternal Grandmother Heart disease Paternal Grandfather Stroke Paternal Grandfather Cancer Paternal Grandmother Family Status - Relation Status Age at Mother Father Maternal Grandfather Maternal Grandmother Paternal Grandfather Paternal Grandmother Level of Service:57191 AR OFFICE/OUTPATIENT NEW MODERATE MDM 45 MINUTES Reason for Visit and Comments: Other [0] - Pelvic mass Normal [facility] Progress Noteon 10-30-2024 Progress Note Chief Complaint Patient presents with Other Pelvic mass HISTORY OF THE PRESENT ILLNESS: Ritika Vega is a pleasant 38 y.o. female who presents in consultation at the request of Dr. Bustillos for evaluation and management of the above. Being followed by I for infertility. 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 Right ovary - 5 x 5.5 x 3.5cm. There was a 2.4cm enhancing nodule. Left ovary and uterus were wnl. Referred for ovarian cystectomy. Past Medical History: Diagnosis Date Arthritis 2019 Celiac disease 2012 Colon polyp 2023 Disease of thyroid gland Graves disease GI (gastrointestinal bleed) 2022 Hyperthyroidism Irregular heart beat Heart murmur Motion sickness PONV (postoperative nausea and vomiting) Celiac disease Thyroid disease Past Surgical History: Procedure Laterality Date COLONOSCOPY 2023 Polyp removed EYE SURGERY 2010 LASIK 2010 OTHER SURGICAL HISTORY 2007 Two left knee, two left elbow knee scope/ dislocation of elbow TONSILLECTOMY UPPER GASTROINTESTINAL ENDOSCOPY WISDOM TOOTH EXTRACTION Knee and elbow surgery Does well with anesthesia. Obstetrical History: G0 Family History Problem Relation Name Age of Onset Depression Mother Rhianna Gutierrezphrey Hypertension Mother Rhianna Vega Arthritis Father Anjel Vega Hypertension Father Anjel Vega Heart disease Maternal Grandfather Apolinar Meiser Anesthesia problems Maternal Grandmother Cece Meiser Diabetes Maternal Grandmother Cece Meiser Heart disease Maternal Grandmother Cece Meiser Heart disease Paternal Grandfather Zac Vega Stroke [...] of possible need (more content not included)... [facility] 36on 10-26-2024 36 Called patient to schedule surgical oncologist appointment. First available is 11/09/24. Patient wanted to know if you had anything sooner. I know you have pto and scheduled for surgery. I told patient I would see if we could do something sooner, but I told her I couldn't promise her anything. Is it okay to put her with Dr. Jimenez? [facility] CNOVon 10-18-2024 CNOV Office Visit (LOORRM ) VEGARITIKA RAMIREZ ([id number]) 1985 F Date Time Provider Department 10/18/24 10:30 AM DEE GLASGOW During your visit today, we recorded the following information about you: Dee Glasgow DO 10/18/2024 3:46 PM Signed Ritika Vega [...] results and radiologist's interpretation, available in the [facility] health record. Images were reviewed with the [...] - Fully Assessed Reason for Visit: New [170682] Pain (Shoulder Pain) [1343] Primary Visit Diagnosis:Glenoid labral tear, right, initial encounter [S43.431A] Other Visit Diagnosis:Tendinopathy of right rotator cuff [M67.911] Order(s):MRI SHOULDER WO IVCON RIGHT [2651917] Order #: [id number] FUTURE Prescriptions as of 10/18/2024 - cetirizine [...] Status:Closed by DEE GLASGOW on 10/18/24 Normal [facility] Direct serum free thyroxine (FT4) measurementOrdered By: Kirby Burrows on 10-18-2024 Free T4 [Mass/Vol] 0.87 ng/dL 0.76-1.46 [facility] Free T3on 10-18-2024 Free T3 [Mass/Vol] 2.6 pg/mL Normal 2.18-3.98 [facility] Comment on above: Performed By: #### L 501.21313, L501.9520, L506.0400 #### [facility] [address] [place], [place], [address] Free [id number] By: Kirby Burrows on 10-18-2024 Free Triiodothyronine (T3) pg/dL 2.6 pg/mL 2.18-3.98 [facility] T4 Free Directon 10-18-2024 T4 FREE DIRECT 0.87 ng/dL Normal 0.76-1.46 [facility] Comment on above: Performed By: #### L 501.02680, L501.9520, L506.0400 #### [facility] [address] [place], [address] TSH QnOrdered By: Kirby Burrows on 10-18-2024 Thyroid Stimulating Hormone (TSH) 0.640 uIU/mL 0.358-3.740 [facility] Thyroid Stim Hormone (TSH)on 10-18-2024 TSH 0.640 uIU/mL Normal 0.358-3.740 [facility] Comment on above: Performed By: #### L 501.55487, L501.9520, L506.0400 #### [facility] [address] [place], [address] XR SHLDR >/=3V AP/GWEN AP/OTH R RTon [...] are preserved. IMPRESSION: No acute bony abnormality. Head Porter Baggage: YANG Transcribe Date/Time: Oct 18 2024 10:04A Dictated by : BHARATH FREGOSO MD This examination was interpreted and the report reviewed and electronically signed by: BHARATH FREGOSO MD on Oct 18 2024 10:05AM EST [id number] Normal [facility] MR PELVIS W //T// [facility] MR PELVIS W //T// W/O [address] [address] Patient: RITIKA VEGA Phone#: : 1985 Age: 38 Gender: F Pt. Type: Out Account: [id number] Location: Ordering: INNA BUSTILLOS Exam Date: 10/13/2024/10:03 Family Phys: Charge Code: [id number] Physician: Long Order #: [id number] Dose#: PROCEDURE: MRI PELVIS WITH AND WITHOUT [...] Live MD on 10/20/2024 at 13:[address] [facility] XR SHLDR >/=3V AP/GWEN AP/OTH R [...] AP/GWEN AP/OTHR RT could not be completed. Head Porter Baggage: [facility] Transcribe Date/Time: Oct 12 2024 9:49A Dictated by : TAYLER TURCIOS MD This examination was interpreted and the report reviewed and electronically signed by: TAYLER TURCIOS MD on Oct 12 2024 9:52AM EST [id number] Normal [facility] XR SHLDR >/=3V AP/GWEN AP/OTH R RTon [...] AP/GWEN AP/OTHR RT could not be completed. Head Porter Baggage: [facility] Transcribe Date/Time: Oct 12 2024 9:49A Dictated by : TAYLER TURCIOS MD This examination was interpreted and the report reviewed and electronically signed by: TAYLER TURCIOS MD on Oct 12 2024 9:52AM EST [id number] Normal [facility] CTPCRon 10-02-2024 C. trachomatis Interp Normal See CT Interp [facility] Comment on above: Result Comment: C. t rachomatis DNA not detected. Specimen is presumptive negative for C. trachomatis. A negative result does not preclude C. trachomatis infection because results depend on adequate specimen collection, absence of inhibitors, and sufficient DNA to be detected. See CT Interp N Performed By: #### N GPCR1, CTPCR #### [place] [address] C.trachomatis PCR Negative Normal Negative [facility] Comment on above: Result Comment: Mole cular (PCR) assay performed on the Roly Leelee 4800 system. Performed By: #### N GPCR1, CTPCR #### [place] [id number] Chlam Source Urine Normal [facility] Comment on above: Performed By: #### N GPCR1, CTPCR #### [place] [address] [id number] 10-02-2024 GC PCR Source Urine Normal [facility] Comment on above: Performed By: #### N GPCR1, CTPCR #### [place] [address] N. gonorrhoeae (PCR) Negative Normal Negative [facility] Comment on above: Result Comment: Mole cular (PCR) assay performed on the R[employer] Lee[employer] 4800 System. Performed By: #### N GPCR1, CTPCR #### [place] [address] N. gonorrhoeae Interp Normal See NG Interp N [facility] Comment on above: Result Comment: N. g onorrhoeae DNA not detected. Specimen is presumptive negative for N. gonorrhoeae. A negative result does not preclude Neisseria gonorrhoeae infection because results depend on adequate specimen collection, absence of inhibitors, and sufficient DNA to be detected. See NG Interp N Performed By: #### N GPCR1, CTPCR #### [place] [address] RPRon 10-02-2024 Reagin Ab RPR Ql (S) Non-Reactive Normal Non-Reactive [facility] Comment on above: Result Comment: The [...] Performed By: #### N GPCR1, CTPCR #### [place] [address] RUBISon 10-02-[address] Positive Normal Positive [facility] Comment on above: Result Comment: This immune status assay detects IgM and/or IgG antibody to Rubella. Interpret results in conjunction with clinical history. POS: Antibody detected; exposure at undetermined recent or distant time. If clinically indicated, order Rubella IGM to rule out recent infection. NEG: No antibody detected. Performed By: #### N GPCR1, CTPCR #### [place] [address] VARISon 09-30-[address] Positive [facility] Comment on above: Result Comment: INTE RPRETATION OF VARICELLA IMMUNE STATUS IgG BY EIA: Negative: No detectable VZV IgG antibody. Positive: VZV IgG antibody Detected. If clinically indicated, order Varicella IgM to rule out recent infection. Equivocal: Equivocal for antibodies to VZV. Suggest repeat testing in 10-14 days. Performed By: #### N GPCR1, CTPCR #### [place] [address] .GFRon 09-29-2024 GFR Non- >60 Normal [facility] Comment on above: Result Comment: GFR [...] GFR, HIV, A1C, VARIS, RUBIS, ABSGEL #### [address] [address] GFR >60 Normal [facility] Comment on above: Result Comment: GFR [...] GFR, HIV, A1C, VARIS, RUBIS, ABSGEL #### [address] [address] A1Con 09-29-2024 Glucose [Mass/Vol] 97 mg/dL Normal [facility] Comment on above: Result Comment: Concetta mated Average Glucose calculated by equation ((28.7xA1C)-46.7) Estimated average glucose (eAG) is a calculated value from Hemoglobin A1C and is rental representative of the average blood glucose level in the last 2-3 month period. Normal range: less than 114 mg/dL Performed By: #### H BSAG, CMP, HCV1, RPR, HGMP, GFR, HIV, A1C, VARIS, RUBIS, ABSGEL #### [address] [address] HbA1c (Bld) [Mass fraction] 5.0 % Normal 4.0-6.0 [facility] Comment on above: Performed By: #### H BSAG, CMP, HCV1, RPR, HGMP, GFR, HIV, A1C, VARIS, RUBIS, ABSGEL #### [address] [address] ABS (Gel)on 09-29-2024 ABSC Interp (Gel) Negative Normal [facility] Comment on above: Performed By: #### H BSAG, CMP, HCV1, RPR, HGMP, GFR, HIV, A1C, VARIS, RUBIS, ABSGEL #### [place] [id number] CMPon 09-29-2024 Albumin Level 3.7 G/dL Normal 3.2-4.8 [facility] Comment on above: Performed By: #### H BSAG, CMP, HCV1, RPR, HGMP, GFR, HIV, A1C, VARIS, RUBIS, ABSGEL #### [place] [phone] Albumin/Globulin [Mass ratio] 1.3 {ratio} Normal 0.9-1.6 [facility] Comment on above: Performed By: #### H BSAG, CMP, HCV1, RPR, HGMP, GFR, HIV, A1C, VARIS, RUBIS, ABSGEL #### [place] [phone] ALP [Catalytic activity/Vol] 50 U/L Normal 38-126 [facility] Comment on above: Performed By: #### H BSAG, CMP, HCV1, RPR, HGMP, GFR, HIV, A1C, VARIS, RUBIS, ABSGEL #### [address] [address] ALT [Catalytic activity/Vol] 29 U/L Normal 10-49 [facility] Comment on above: Performed By: #### H BSAG, CMP, HCV1, RPR, HGMP, GFR, HIV, A1C, VARIS, RUBIS, ABSGEL #### [address] [address] AST [Catalytic activity/Vol] 19 U/L Normal 8-34 [facility] Comment on above: Performed By: #### H BSAG, CMP, HCV1, RPR, HGMP, GFR, HIV, A1C, VARIS, RUBIS, ABSGEL #### [place] [id number] Bili Total 0.70 mg/dL Normal 0.20-1.20 [facility] Comment on above: Result Comment: Use of this assay is not recommended for patients undergoing treatment with eltrombopag due to the potential for falsely elevated results. Performed By: #### H BSAG, CMP, HCV1, RPR, HGMP, GFR, HIV, A1C, VARIS, RUBIS, ABSGEL #### [address] [address] BUN/Creatinine Ratio 19.2 ratio Normal 10.0-22.0 [facility] Comment on above: Performed By: #### H BSAG, CMP, HCV1, RPR, HGMP, GFR, HIV, A1C, VARIS, RUBIS, ABSGEL #### [address] [address] Calcium [Mass/Vol] 9.4 mg/dL Normal 8.7-10.4 [facility] Comment on above: Performed By: #### H BSAG, CMP, HCV1, RPR, HGMP, GFR, HIV, A1C, VARIS, RUBIS, ABSGEL #### [address] [address] Chloride [Moles/Vol] 107 mmol/L Normal 98-110 [facility] Comment on above: Performed By: #### H BSAG, CMP, HCV1, RPR, HGMP, GFR, HIV, A1C, VARIS, RUBIS, ABSGEL #### [address] [address] CO2 [Moles/Vol] 29 mmol/L Normal 22-32 [facility] Comment on above: Performed By: #### H BSAG, CMP, HCV1, RPR, HGMP, GFR, HIV, A1C, VARIS, RUBIS, ABSGEL #### [address] [address] Creatinine [Mass/Vol] 0.99 mg/dL Normal 0.50-1.20 [facility] Comment on above: Result Comment: Test ing performed on Nonlinear Dynamics analyzer using enzymatic creatinine methodology. Performed By: #### H BSAG, CMP, HCV1, RPR, HGMP, GFR, HIV, A1C, VARIS, RUBIS, ABSGEL #### [address] [address] Electrolyte Balance 6.0 mEq/L Normal 4.0-15.0 [facility] Comment on above: Performed By: #### H BSAG, CMP, HCV1, RPR, HGMP, GFR, HIV, A1C, VARIS, RUBIS, ABSGEL #### [place] [phone] Globulin 2.9 G/dL Normal 1.5-3.8 [facility] Comment on above: Performed By: #### H BSAG, CMP, HCV1, RPR, HGMP, GFR, HIV, A1C, VARIS, RUBIS, ABSGEL #### [place] [phone] Glucose [Mass/Vol] 81 mg/dL Normal 70-110 [facility] Comment on above: Performed By: #### H BSAG, CMP, HCV1, RPR, HGMP, GFR, HIV, A1C, VARIS, RUBIS, ABSGEL #### [place] [phone] Potassium [Moles/Vol] 4.4 mmol/L Normal 3.5-5.0 [facility] Comment on above: Performed By: #### H BSAG, CMP, HCV1, RPR, HGMP, GFR, HIV, A1C, VARIS, RUBIS, ABSGEL #### [place] [phone] Sodium [Moles/Vol] 142 mmol/L Normal 136-145 [facility] Comment on above: Performed By: #### H BSAG, CMP, HCV1, RPR, HGMP, GFR, HIV, A1C, VARIS, RUBIS, ABSGEL #### [place] [phone] Total Protein 6.6 G/dL Normal 5.7-8.2 [facility] Comment on above: Performed By: #### H BSAG, CMP, HCV1, RPR, HGMP, GFR, HIV, A1C, VARIS, RUBIS, ABSGEL #### [place] [phone] Urea nitrogen [Mass/Vol] 19.0 mg/dL Normal 8.0-22.0 [facility] Comment on above: Performed By: #### H BSAG, CMP, HCV1, RPR, HGMP, GFR, HIV, A1C, VARIS, RUBIS, ABSGEL #### [place] [address] HBSAGon 09-29-2024 Hep B Surf Ag Non-Reactive Normal Non-Reactive [facility] Comment on above: Performed By: #### H BSAG, CMP, HCV1, RPR, HGMP, GFR, HIV, A1C, VARIS, RUBIS, ABSGEL #### [place] [address] HCVon 09-29-2024 Hep C Ab Non-Reactive Normal Non-Reactive [facility] Comment on above: Performed By: #### H BSAG, CMP, HCV1, RPR, HGMP, GFR, HIV, A1C, VARIS, RUBIS, ABSGEL #### [place] [address] Hep C Ab Int Normal [facility] Comment on above: Result Comment: Nonr [...] GFR, HIV, A1C, VARIS, RUBIS, ABSGEL #### [place] [address] HGMPon 09-29-2024 Erythrocyte distribution width (RBC) [Ratio] 12.3 % Normal 11.5-15.5 [facility] Comment on above: Performed By: #### H BSAG, CMP, HCV1, RPR, HGMP, GFR, HIV, A1C, VARIS, RUBIS, ABSGEL #### [place] [address] Hematocrit (Bld) [Volume fraction] 38.0 % Normal 34.0-46.0 [facility] Comment on above: Performed By: #### H BSAG, CMP, HCV1, RPR, HGMP, GFR, HIV, A1C, VARIS, RUBIS, ABSGEL #### [place] [address] Hgb 12.9 G/dL Normal 12.0-16.0 [facility] Comment on above: Performed By: #### H BSAG, CMP, HCV1, RPR, HGMP, GFR, HIV, A1C, VARIS, RUBIS, ABSGEL #### [place] [address] MCH (RBC) [Entitic mass] 33.2 pg High 27.0-33.0 [facility] Comment on above: Performed By: #### H BSAG, CMP, HCV1, RPR, HGMP, GFR, HIV, A1C, VARIS, RUBIS, ABSGEL #### [place] [address] MCHC 34.0 G/dL Normal 32.0-36.0 [facility] Comment on above: Performed By: #### H BSAG, CMP, HCV1, RPR, HGMP, GFR, HIV, A1C, VARIS, RUBIS, ABSGEL #### [place] [address] MCV (RBC) [Entitic vol] 97.6 fL Normal 80.0-99.0 [facility] Comment on above: Performed By: #### H BSAG, CMP, HCV1, RPR, HGMP, GFR, HIV, A1C, VARIS, RUBIS, ABSGEL #### [place] [address] Platelet 275 10 3/mcL Normal 150-450 [facility] Comment on above: Performed By: #### H BSAG, CMP, HCV1, RPR, HGMP, GFR, HIV, A1C, VARIS, RUBIS, ABSGEL #### [place] [phone] Platelet mean volume (Bld) [Entitic vol] 8.0 fL Normal 6.6-10.5 [facility] Comment on above: Performed By: #### H BSAG, CMP, HCV1, RPR, HGMP, GFR, HIV, A1C, VARIS, RUBIS, ABSGEL #### [place] [address] RBC 3.90 10 6/mcL Low 4.10-5.30 [facility] Comment on above: Performed By: #### H BSAG, CMP, HCV1, RPR, HGMP, GFR, HIV, A1C, VARIS, RUBIS, ABSGEL #### [place] [address] WBC 5.3 10 3/mcL Normal 4.5-10.8 [facility] Comment on above: Performed By: #### H BSAG, CMP, HCV1, RPR, HGMP, GFR, HIV, A1C, VARIS, RUBIS, ABSGEL #### [place] [address] HIVon 09-29-2024 HIV 1/2 Ab Non-Reactive Normal Non-Reactive [facility] Comment on above: Result Comment: Spec imen is negative for anti-HIV-1 and anti-HIV-2. Performed By: #### H BSAG, CMP, HCV1, RPR, HGMP, GFR, HIV, A1C, VARIS, RUBIS, ABSGEL #### [place] [address] LABORATORYOrdered By: SYSTEM SYSTEM on 09-29-2024 Albumin BCP dye [Mass/Vol] 3.7 G/dL Normal 3.2 - 4.8 G/dL ADM SS Albumin/Globulin [Mass ratio] 1.3 {ratio} Normal 0.9 - 1.6 ratio AH ADM SS ALP [Catalytic activity/Vol] 50 U/L Normal 38 - 126 U/L ADM SS ALT No additional P-5'-P [Catalytic activity/Vol] 29 U/L Normal 10 - 49 U/L AH ADM SS AST [Catalytic activity/Vol] 19 U/L Normal 8 - 34 U/L ADM SS Bilirubin [Mass/Vol] 0.70 mg/dL Normal 0.20 - 1.20 mg/dL AH ADM SS Comment on above: Interpretive Data: [...] above: Interpretive Data: T esting performed on Nonlinear Dynamics analyzer using enzymatic creatinine methodology. Electrolyte Balance 6.0 mEq/L Normal 4.0 - 15 .0 mEq/L ADM SS Erythrocyte distribution width (RBC) [Ratio] 12.3 % Normal 11.5 - 15.5 % Workflow SS GFR/1.73 sq M.predicted among blacks MDRD (S/P/Bld) [Vol rate/Area] ml/min/1.73sqm Invalid Interpretation Code [facility] Chemistry S Comment on above: Interpretive Data: [...] (S/P/Bld) [Vol rate/Area] ml/min/1.73sqm Invalid Interpretation Code [facility] Chemistry S Comment on above: Interpretive Data: [...] calculated value from Hemoglobin A1C and is rental representative of the average blood glucose level in [...] 12.9 G/dL Normal 12.0 - 16.0 G/dL Workflow SS MCH (RBC) [Entitic mass] 33.2 [...] 275 103/mcL Normal 150 - 450 10^3/mcL Workflow SS Potassium [Moles/Vol] 4.4 mmol/L Normal 3.5 - 5.0 mEq/L ADM SS Protein [Mass/Vol] 6.6 G/dL Normal 5.7 - 8.2 G/dL ADM SS RBC (Bld) [#/Vol] 3.90 106/mcL Low 4.10 - 5.3 0 10^6/mcL AH Workflow SS Sodium [Moles/Vol] 142 mmol/L Normal 136 - 145 mEq/L AH ADM SS Urea nitrogen [Mass/Vol] 19.0 mg/dL Normal 8.0 - 22.0 mg/dL AH ADM SS Urea nitrogen/Creatinine [Mass ratio] 19.2 ratio Normal 10.0 - 22.0 ratio AH ADM SS WBC (Bld) [#/Vol] 5.3 103/mcL Normal 4.5 - 10.8 10^3/mcL AH Workflow SS LABORATORYOrdered By: Beny Tierney on 09-29-2024 Blood group antibody screen Ql Negative ABSC (09/29/24 1:05 PM) Normal AH BB Auto SS LABORATORYOrdered By: Tanner Erazo on 09-29-2024 HBV surface Ag IA Ql Non-Reactive (09/29/24 1:05 PM) Normal Non-Reactive AH ADM SS HCV Ab IA Ql Non-Reactive (09/29/24 1:05 PM) Normal Non-Reactive AH ADM SS HCV Ab IA Ql Nonreactive: [...] Ab IA Ql Negative Invalid Interpretation Code Chemistry S HIV 1/2 Ab Non-Reactive (09/29/24 1:05 PM) Normal Non-Reactive AH ADM SS Free T3on 09-14-2024 Free T3 [Mass/Vol] 2.4 pg/mL Normal 2.18-3.98 [facility] Comment on above: Performed By: #### L 506.0400, L501.79540 #### [facility] [address] [place], [place], [id number] T4 Free Directon 09-14-2024 T4 FREE DIRECT 0.75 ng/dL Low 0.76-1.46 [facility] Comment on above: Performed By: #### L 506.0400, L501.65845 #### [facility] [address] [place], [place], [id number] Thyroid Stim Hormone (TSH)on 09-14-2024 TSH 1.460 uIU/mL Normal 0.358-3.740 [facility] Comment on above: Performed By: #### L 506.0400, L501.26075 #### [facility] [address] [place], [address] Comprehensive Metabolic Prof ilon 08-25-2024 Albumin [Mass/Vol] 3.7 g/dL Normal 3.2-5.0 [facility] Comment on above: Performed By: #### L 506.0400, L501.21661 #### [facility] [address] [place], [address] Albumin/Globulin [Mass ratio] 1.1 {ratio} Normal 0.9-2.4 [facility] Comment on above: Performed By: #### L 506.0400, L501.28744 #### [facility] [address] [place], [address] ALK P 50 U/L Normal 45-117 [facility] Comment on above: Performed By: #### L 506.0400, L501.03302 #### [facility] [address] [place], [address] ALT [Catalytic activity/Vol] 29 U/L Normal 13-56 [facility] Comment on above: Performed By: #### L 506.0400, L501.85317 #### [facility] [address] [place], [address] AST [Catalytic activity/Vol] 14 U/L Low 15-37 [facility] Comment on above: Performed By: #### L 506.0400, L501.97794 #### [facility] [address] [place], [address] Bilirubin [Mass/Vol] 1.00 mg/dL Normal 0.20-1.00 [facility] Comment on above: Result Comment: For patients on eltrombopag therapy, use of Dimension [place] TBIL is not recommended. Performed By: #### L 506.0400, L501.80985 #### [facility] [address] [place], [address] BUN/CRE 14.4 RATIO Normal 10-20 [facility] Comment on above: Performed By: #### L 506.0400, L501.67907 #### [facility] [address] [place], [address] CA,Total 8.7 mg/dL Normal 8.5-10.1 [facility] Comment on above: Performed By: #### L 506.0400, L5.78527 #### [facility] [address] [place], [address] Chloride [Moles/Vol] 110 mmol/L High 98-107 [facility] Comment on above: Performed By: #### L 506.0400, L5.77696 #### [facility] [address] [place], [address] CO2 [Moles/Vol] 24.0 mmol/L Normal 21.0-32.0 [facility] Comment on above: Performed By: #### L 506.0400, L5.57822 #### [facility] [address] [place], [address] Creatinine [Mass/Vol] 1.04 mg/dL High 0.55-1.02 [facility] Comment on above: Result Comment: The validity of the calculated GFR GFRAA in patients over 70 years has not been determined. Clinical correlation is essential. Performed By: #### L 506.0400, L501.14671 #### [facility] [address] [place], [address] EST GFR - AA 76 mL/min Normal >60 [facility] Comment on above: Result Comment: Afri can [place] GFR Calc Performed By: #### L 506.0400, L5.71630 #### [facility] [address] [place], [address] GAP 5 Normal 5-15 [facility] Comment on above: Performed By: #### L 506.0400, L501.77448 #### [facility] [address] [place], [address] GFR/1.73 sq M.predicted among non-blacks MDRD (S/P/Bld) [Vol rate/Area] 63 mL/min/{1.73_m2} Normal >60 [facility] Comment on above: Result Comment: Non- GFR Calc Performed By: #### L 506.0400, L501.35248 #### [facility] [address] [place], [address] Globulin (S) [Mass/Vol] 3.3 g/dL Normal 2.2-4.2 [facility] Comment on above: Performed By: #### L 506.0400, L501.24715 #### [facility] [address] [place], [address] Glucose [Mass/Vol] 86 mg/dL Normal 74-106 [facility] Comment on above: Performed By: #### L 506.0400, L501.81288 #### [facility] [address] [place], [address] Potassium [Moles/Vol] 4.4 mmol/L Normal 3.5-5.1 [facility] Comment on above: Performed By: #### L 506.0400, L501.37878 #### [facility] [address] [place], [address] Sodium [Moles/Vol] 139 mmol/L Normal 136-145 [facility] Comment on above: Performed By: #### L 506.0400, L501.24437 #### [facility] [address] [place], [address] T PROT 7.0 g/dL Normal 6.4-8.2 [facility] Comment on above: Performed By: #### L 506.0400, L501.46333 #### [facility] [address] [place], [address] Urea nitrogen [Mass/Vol] 15 mg/dL Normal -18 [facility] Comment on above: Performed By: #### L 506.0400, L501.57879 #### [facility] [address] [place], [address] Free T3on 08-25-2024 Free T3 [Mass/Vol] 2.3 pg/mL Normal 2.18-3.98 [facility] Comment on above: Performed By: #### L 506.0400, L501.36590 #### [facility] [address] [place], [address] T4 Free Directon 08-25-2024 T4 FREE DIRECT 0.72 ng/dL Low 0.76-1.46 [facility] Comment on above: Performed By: #### L 501.71529, L501.9520, L506.0400 #### [facility] [address] [place] [address] Thyroid Stim Hormone (TSH)on 08-25-2024 TSH 1.670 uIU/mL Normal 0.358-3.740 [facility] Comment on above: Performed By: #### L 506.0400, L501.38796 #### [facility] [address] [place], [address] Endocrinology Visit Reporton 08-17-2024 Endocrinology Visit Report [facility] 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 Normal [facility] PROGESTERONE [CCL]on 024 Progesterone 25.0 ng/mL Normal See comment [facility] Comment on above: Result Comment: Mens trual Cycle Progesterone Reference Ranges: Follicular: <1.0 ng/mL Ovulation: <12.1 ng/mL Luteal: 1.8 to 23.9 ng/mL. Progesterone Reference Ranges vary by gestational period: First Trimester: 11.0 to 44.3 ng/mL Second Trimester: 25.4 to 83.3 ng/mL Third Trimester: 58.7 to 214 ng/mL Post menopausal Progesterone: <0.5 ng/mL Reference: 1. Progesterone (Progesterone III) [package insert V 1.0 Pakistani]. Roly Starteed, [place], [place]. August 2015. [place] [address] Rambo Eckert III, M.D. [id number] Performed By: #### 2 [address] #### [facility],[address] [place] [address] [facility] Progesterone [Mass/Vol] 25.0 ng/mL Normal See comment [facility] Comment on above: Order Comment: Speci men Type: BLOOD SPECIMEN Ordering Facility: [facility] Address: [address] [place] [address] Result Comment: Mens trual Cycle Progesterone Reference Ranges: Follicular: <1.0 ng/mL Ovulation: <12.1 ng/mL Luteal: 1.8 to 23.9 ng/mL. Progesterone Reference Ranges vary by gestational period: First Trimester: 11.0 to 44.3 ng/mL Second Trimester: 25.4 to 83.3 ng/mL Third Trimester: 58.7 to 214 ng/mL Post menopausal Progesterone: <0.5 ng/mL Reference: 1. Progesterone (Progesterone III) [package insert V 1.0 Pakistani]. Roly Starteed, [place], [place]. August 2015. Performed By: #### 2 839-9 #### [facility] CLIA [id number] [address] [place] [address] [facility] Free T3on 07-31-2024 Free T3 [Mass/Vol] 2.4 pg/mL Normal 2.18-3.98 [facility] Comment on above: Order Comment: REPRO SOURCE FFOR Performed By: #### L 501.03561, L501.9520, L506.0400 #### [facility] [address] [place], [address] L900.0111on 07-31-2024 REPROSOURCE SEE SCANNED REPORT Normal [facility] Comment on above: Order Comment: REPRO SOURCE FOR DR. BAUTISTA Performed By: #### L 501.39205, L501.9520, L506.0400 #### [facility] [address] [place], [address] T4 Free Directon 07-31-2024 T4 FREE DIRECT 0.77 ng/dL Normal 0.76-1.46 [facility] Comment on above: Order Comment: REPRO SOURCE FFOR Performed By: #### L 501.65965, L501.9520, L506.0400 #### [facility] [address] [place], [address] Thyroid Stim Hormone (TSH)on 07-31-2024 TSH 4.000 uIU/mL High 0.358-3.740 [facility] Comment on above: Order Comment: REPRO SOURCE FFOR Performed By: #### L 501.34572, L501.9520, L506.0400 #### [facility] [address] [place], [address] Commanding [employer] Office Visit Reporton 07-28-2024 Commanding Officer [employer] Office Visit Report [facility] [address], [address] [place] [address] OFFICE VISIT Date of Service: 07/28/24 MR#: [id number] Acct: [id number] Name: RITIKA VEGA Rep #: [id number] : 1985 Provider: ADEBAYO ramirez Age/Sex: 38/F [place] [facility] [place] Status: Signed Intake Vital Signs 04/19/24 07:00 07/28/24 14:02 Height 5 ft 11 in 5 ft 11 in Weight: 159 lb 160 lb BMI 22.1 22.3 BP 112/72 117/75 Blood Pressure Location Lt brachial Position Sitting Pulse 60 Pulse Source Monitor Temp 98.2 F Pulse Oximetry (%) 100 Intake Visit Reasons: FERTILITY CONSULT 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 07/28/24 1454 Date Dandy Reich CNM Cosigner Signature: Date (if applicable) CC: Normal [facility] No Panel InformationOrdered By: Kirby Burrows on 03-08-2024 Free Triiodothyronine (T3) pg/dL 2.4 pg/mL 2.18-3.98 [facility] Serum or plasma thyroid stim ulating hormone (TSH) measurement (units/volume)Ordered By: Kirby Burrows on 03-08-2024 TSH Qn 1.74 uIU/mL 0.358-3.74 [facility] Thin prep Papanicolaou smear with manual screeningOrdered By: Kirby Burrows on 03-08-2024 Thin prep Papanicolaou smear with manual screening 0.91 ng/dL 0.76-1.46 [facility] Final Surgical Pathology Rep meena 01-31-2024 Final Surgical Pathology Report . Pathology Reports Accession: Collected Date/Time: Received Date/Time: Pathologist: [id number] 01/27/2024 14:58 EDT 01/28/2024 08:09 EDT ALLIE [...] All parts labelled with patient name and [id number] Received in formalin labeled "sigmoid polyp" is 1 melendez-brown tissue fragment measuring 2.9 x 1.5 x 1.3 cm. Margin inked and specimen dissected. TS-3 Liliana Cuellar, Grossing Outside Property Agent/ Dr. Lam Lee, Pathologist Dictated by Liliana Cuellar MICROSCOPIC DESCRIPTION: The microscopic examination is performed, except in the case of Gross Only. Electronically Signed by Pathology Report verified by [facility] ALLIE BRAMBILA Sign out Date: 01/31/2024 11:19 Performing Lab: [facility], [address] [place] [address] Pathology Dept Disclaimer If ancillary studies were utilized, the following Laboratory Developed Test (LDT) disclaimer will apply: Under CLIA requirements, [facility] is qualified to perform high complexity testing. For all ancillary stains, positive and negative controls stain appropriately. Performance characteristics of immunohistochemical and chromogenic in-situ hybridization tests have been determined by [facility]. These tests are used for clinical purposes, They should not be regarded as investigational or for research. Normal [facility] ([place]) Laboratory - Microbiology an d Antimicrobial susceptibilityon 12-29-2023 SARS-CoV-2 (COVID-19) RNA NENA+probe Ql (Unsp spec) Not detected [facility] No Panel Informationon 12-29 Influenza Types A,B Rapid (Clinic) Pos FLU A &Neg FLU B [facility] - Chemistry and C hemistry - challengeOrdered By: Kirby Burrows on 10-13-2023 Free T4 [Mass/Vol] 0.87 ng/dL 0.76-1.46 [facility] No Panel InformationOrdered By: Kirby Burrows on 10-13-2023 Free Triiodothyronine (T3) pg/dL 2.1 pg/mL 2.18-3.98 [facility] Thyroid Stimulating Hormone (TSH) 2.69 uIU/mL 0.358-3.74 [facility] - Chemistry and C hemistry - challengeOrdered By: Kirby Burrows on 09-10-2023 Free T4 [Mass/Vol] 0.84 ng/dL 0.76-1.46 [facility] No Panel InformationOrdered By: Kirby Burrows on 09-10-2023 Free Triiodothyronine (T3) pg/dL 2.1 pg/mL 2.18-3.98 [facility] Thyroid Stimulating Hormone (TSH) 2.93 uIU/mL 0.358-3.74 [facility] Laboratory - Chemistry and C hemistry - challengeOrdered By: Dr. Burrows on 04-08-2023 Free T4 [Mass/Vol] 1.09 ng/dL 0.76-1.46 [facility] No Panel InformationOrdered By: Dr. Burrows on 04-08-2023 Free Triiodothyronine (T3) pg/dL 3.2 pg/mL 2.18-3.98 [facility] Thyroid Stimulating Hormone (TSH) 0.01 uIU/mL 0.358-3.74 [facility] Laboratory - Chemistry and C hemistry - challengeOrdered By: Dr. Burrows on 03-05-2023 Free T4 [Mass/Vol] 1.33 ng/dL 0.76-1.46 [facility] No Panel InformationOrdered By: Dr. Burrows on 03-05-2023 Free Triiodothyronine (T3) pg/dL 4.0 pg/mL 2.18-3.98 [facility] Thyroid Stimulating Hormone (TSH) < 0.01 uIU/mL 0.358-3.74 [facility] Laboratory - Chemistry and C hemistry - challengeOrdered By: Dr. Burrows on 10-15-2022 Cobalamin (Vitamin B12) [Mass/Vol] 419 pg/mL 211-911 [facility] Laboratory - Chemistry and C hemistry - challengeOrdered By: Zuleyma Shaffer on 10-15-2022 Free T4 [Mass/Vol] 0.84 ng/dL 0.76-1.46 [facility] No Panel InformationOrdered By: Zuleyma Shaffer on 10-15-2022 Free Triiodothyronine (T3) pg/dL 2.6 pg/mL 2.18-3.98 [facility] Thyroid Stimulating Hormone (TSH) 0.26 uIU/mL 0.358-3.74 [facility] Laboratory - Chemistry and C hemistry - challengeOrdered By: Dr. Burrows on 09-22-2022 Free T4 [Mass/Vol] 0.98 ng/dL 0.76-1.46 [facility] No Panel InformationOrdered By: Dr. Burrows on 09-22-2022 Free Triiodothyronine (T3) pg/dL 3.1 pg/mL 2.18-3.98 [facility] Thyroid Stimulating Hormone (TSH) 0.02 uIU/mL 0.358-3.74 [facility] Laboratory - Chemistry and C hemistry - challengeOrdered By: Dr. Burrows on 09-02-2022 Free T4 [Mass/Vol] 1.11 ng/dL 0.76-1.46 [facility] No Panel InformationOrdered By: Dr. Burrows on 09-02-2022 Free Triiodothyronine (T3) pg/dL 3.3 pg/mL 2.18-3.98 [facility] Thyroid Stimulating Hormone (TSH) 0.01 uIU/mL 0.358-3.74 [facility] Laboratory - Chemistry and C hemistry - challengeon 07-08-2022 Free T4 [Mass/Vol] 1.07 ng/dL 0.76-1.46 [facility] Work Phone: No Panel Informationon 07-08 Free Triiodothyronine (T3) pg/dL 3.2 pg/mL 2.18-3.98 [facility] Work Phone: Thyroid Stimulating Hormone (TSH) 0.19 uIU/mL 0.358-3.74 [facility] Work Phone: Initial Visit (Gastroenterol ogy)on 11-14-2020 [...] prior GI records from Dr. Patricio with [facility]. 2. Obtain tTG IgA CBC, CMP, ferritin, and vitamin profile. 3. Continue strict gluten free diet. 4. Begin using one heaping tablespoon of Benefiber in 8 ounces of water daily by mixing and drinking quickly. This product is rbvc-aqy-obudldz. 5. Discussed antispasmodic trial pending the above. [...] telehealth visit. Celiac disease History of Present Qviyecq76-cjkx-cth female seen today via virtual visit as a new patient regarding a history of celiac disease diagnosed in spring 2013. She was a prior patient of Dr. Patricio with [facility]. She states she had undergone EGD and [...] follows up with Dr. Howard Burrows with [facility] for management of her Graves' disease. Review [...] Recorded: 14Nov2020 11:58AM Height5 ft 11 in Mipweh627 lb BMI Xsbffcoruc35.32 BSA Calculated1.92 [id number] Physical Exam Patient is alert and oriented and in no apparent distress. Patient is speaking in complete sentences without conversational dyspnea. No observed pallor or jaundice. Signatures Electronically signed by : Jillian Kraus PA-C; Nov 14 2020 12:35PM EST (Author) Normal [employer] PROGRESSon 09-28-2019 PROGRESS HNO ID: [id number] Author: Joy Galeano Service: ? Author Type: Physician Type: Progress Notes Filed: 09/28/2019 7:32 PM Note Text: Note: The following is an "abstracted" note of the either a previous or a new History of Present Illness. This is in prep for an up-coming appointment. This is not a dyxe-zm-owyz encounter. Previous history as follows: Thyroid gland disease: Previous history: 05/2015: TSH 0.600 (0.358-3.740 uIU/mL), at [facility] lab, 07/2018: Around this time [...] 10/2018: Vitamin B-12 1058 (193-986 pg/mL), Normal [facility] CNOVon 06-01-2019 CNOV Office Visit (ENAGST ) RITIKA VEGA ([id number]) 1985 F Date Time Provider Department 06/01/19 1:30 PM JOY GALEANO During your visit today, we recorded the following information about you: Pulse Blood pressure Weight Height 59/minute 113/74 77.6 kg 1.778 m Joy Galeano MD 06/01/2019 6:24 PM Addendum . [facility] Endocrinology - [place] [address] [place] [address], [address] Endocrinology - [address], [address] [place], [place] [address] Patient's name: Ritika Vega Patient's date of : 1985 Date of encounter: 06/01/2019 History of present illness: Ritika Vega is a 33 year old female who presents for follow up of an endocrinology issue. Previous history: 05/2015: TSH 0.600 (0.358-3.740 uIU/mL), at [facility] lab, 07/2018: Around this time [...] medications I prescribe (or may prescribe) is: [facility] Review of Systems Constitutional: Negative for chills, diaphoresis, fever, malaise/fatigue and weight loss. HENT: Negative for congestion and sore throat. Eyes: Negative for double vision and pain. Respiratory: Negative for cough, shortness of breath and wheezing. Cardiovascular: Positive for palpitations ("same"). Negative for chest pain and leg swelling. [...] Laterality Date - EGD Upper endoscoscopy: Dr. 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 BP 113/74 Pulse 59 Ht 5' 10" (1.78m) Wt 171 lb (77.6kg) BMI 24.54 [...] sending Rx. She will contact me via [employer] with new pharmacy information (next week, when [...] Galeano MD Addendum to note: June 01, 2019 05/2019: TSH 0.006 (0.358-3.740 uIU/mL), free T4 1.39 (0.76-1.46 ng/dL), free T3 4.1 (2.2-4.0 pg/mL), on Methimazole 7.5 mg daily. Liver function tests and neutrophils are ok. I increased her to Methimazole 10 mg daily. I will send her a message, in the [employer] portal. She wanted to wait on Rx till she knows what her new plan requires. Joy Galeano MD 06/01/2019 18:24:32 Joy Galeano MD 06/01/2019 1:45 PM Signed Methimazole (Tapazole) or propylthiouracil (PTU) notes: You are on (or may be prescribed) methimazole (Tapazole) or propylthiouracil (PTU) for your over-active thyroid gland. These drug are considered "Anti-thyroid drugs", as they are prescribed to "slow-down" the thyroid gland. Remember to call me [...] those symptoms occur. 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 These drug are considered "Anti-thyroid drugs", as they are prescribed to "slow-down" the thyroid gland. Remember to call me [...] Status:Closed by JOY GALEANO MD on 06/01/19 [facility] Free T3on 06-01-2019 Free T3 [Mass/Vol] 4.1 pg/mL High 2.2-4.0 [facility] Comment on above: Performed By: #### F T4 #### [facility] [address] [place], [place] [address] Free Thyroxineon 06-01-2019 Free T4 [Mass/Vol] 1.39 ng/dL Normal 0.76-1.46 [facility] Comment on above: Performed By: #### F T4 #### [facility] [address] [place], [place] [address] Hepatic Panelon 06-01-2019 ALP [Catalytic activity/Vol] 62 U/L Normal 45-117 [facility] Comment on above: Performed By: #### F T4 #### [facility] [address] [place], [place] [address] Bilirubin [Mass/Vol] 0.5 mg/dL Normal 0.2-1.0 [facility] Comment on above: Performed By: #### F T4 #### [address] [address] Protein [Mass/Vol] 6.8 g/dL Normal 6.4-8.2 [facility] Comment on above: Performed By: #### F T4 #### [address] [address] AST [Catalytic activity/Vol] 18 U/L Normal 15-37 [facility] Comment on above: Performed By: #### F T4 #### [address] [address] ALT [Catalytic activity/Vol] 31 U/L Normal 12-78 [facility] Comment on above: Performed By: #### F T4 #### [facility] [address] [place], [place] [address] Bilirubin [Mass/Vol] 0.14 mg/dL Normal 0.00-0.20 [facility] Comment on above: Performed By: #### F T4 #### [facility] [address] [place], [place] [address] Albumin [Mass/Vol] 3.9 g/dL Normal 3.4-5.0 [facility] Comment on above: Performed By: #### F T4 #### [facility] [address] [place] [id number] PROGRESSon 06-01-2019 PROGRESS HNO ID: [id number] Author: Joy Galeano Service: ? Author Type: Physician Type: Progress Notes Filed: 06/01/2019 6:24 PM Note Text: . [facility] General Endocrinology - [place] [address] [facility], [address] Endocrinology - [address], [address] [place], [place] [address] Patient's name: Ritika Vega Patient's date of : 1985 Date of encounter: 06/01/2019 History of present illness: Ritika Vega is a 33 year old female who presents for follow up of an endocrinology issue. Previous history: 05/2015: TSH 0.600 (0.358-3.740 uIU/mL), at [facility] lab, 07/2018: Around this time [...] medications I prescribe (or may prescribe) is: [facility] Review of Systems Constitutional: Negative for chills, diaphoresis, fever, malaise/fatigue and weight loss. HENT: Negative for congestion and sore throat. Eyes: Negative for double vision and pain. Respiratory: Negative for cough, shortness of breath and wheezing. Cardiovascular: Positive for palpitations ("same"). Negative for chest pain and leg swelling. [...] Laterality Date - EGD Upper endoscoscopy: Dr. 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 BP 113/74 Pulse 59 Ht 5' 10" (1.78m) Wt 171 lb (77.6kg) BMI 24.54 [...] sending Rx. She will contact me via [employer] with new pharmacy information (next week, when [...] will send her a message, in the [employer] portal. She wanted to wait on Rx till she knows what her new plan requires. Joy Galeano MD 06/01/2019 18:24:32 Normal [facility] PROGRESS HNO ID: [id number] Author: Joy Galeano Service: ? Author Type: Physician Type: Progress Notes Filed: 06/01/2019 6:35 AM Note Text: Note: The following is an "abstracted" note of the either a previous or a new History of Present Illness. This is in prep for an up-coming appointment. This is not a gxwa-wp-dgwg encounter. Previous history as follows: Previous history: 05/2015: TSH 0.600 (0.358-3.740 uIU/mL), at [facility] lab, 07/2018: Around this time [...] 10/2018: Vitamin B-12 1058 (193-986 pg/mL), Normal [facility] TSH, 3rd generationon 2018 TSH, 3rd generation 0.006 uIU/mL Low 0.358-3.[address] [facility] Comment on above: Performed By: #### F T4 #### [facility] [address] [place], [place] [address] WBC with Differentialon 05-09 Abs Immature Grans 0.01 thou/cmm Normal 0.00-0.05 [facility] Comment on above: Performed By: #### F T4 #### [facility] [address] [place], [place] [address] Abs Neut (ANC) 2.51 thou/cmm Normal 1.56-6.13 [facility] Comment on above: Performed By: #### F T4 #### [facility] [address] [place], [place] [address] Abs. Baso 0.05 thou/cmm Normal 0.01-0.08 [facility] Comment on above: Performed By: #### F T4 #### [facility] [address] [place], [place] [address] Abs. [place] 0.42 thou/cmm Normal 0.27-0.70 [facility] Comment on above: Performed By: #### F T4 #### [facility] [address] [place], [place] [address] Basophils/100 WBC (Bld) 0.9 % Normal [facility] Comment on above: Performed By: #### F T4 #### [facility] [address] [place], [place] [address] Eosinophils (Bld) [#/Vol] 0.06 thou/cmm Normal 0.00-0.31 [facility] Comment on above: Performed By: #### F T4 #### [facility] [address] [place], [place] [address] Eosinophils/100 WBC (Bld) 1.0 % Normal [facility] Comment on above: Performed By: #### F T4 #### [facility] [address] [place], [place] [address] Immature Grans 0.20 % Normal [facility] Comment on above: Performed By: #### F T4 #### [facility] [address] [place], [place] [address] Lymphocytes (Bld) [#/Vol] 2.68 thou/cmm Normal 1.18-3.74 [facility] Comment on above: Performed By: #### F T4 #### [facility] [address] [place], [place] [address] Lymphocytes/100 WBC (Bld) 46.8 % Normal [facility] Comment on above: Performed By: #### F T4 #### [facility] [address] [place], [place] [address] Monocytes/100 WBC (Bld) 7.3 % Normal [facility] Comment on above: Performed By: #### F T4 #### [facility] [address] [place], [place] [address] Seg Neutrophil 43.8 % Normal [facility] Comment on above: Performed By: #### F T4 #### [facility] [address] [place], [place] [address] WBC (Bld) [#/Vol] 5.73 thou/cmm Normal 3.98-10.04 [facility] Comment on above: Performed By: #### F T4 #### [facility] [address] [place] [id number] CNOVon 04-17-2019 CNOV Office Visit (AGMPC) RITIKA VEGA ([id number]) 1985 F Date Time Provider Department 04/17/19 2:00 PM SANDY DAWN [facility] During your visit today, we recorded the following information about you: Temperature Pulse Respiration Blood pressure 97.3 degrees 57/minute 18/minute 118/72 Weight Height Last Period 77.2 kg 1.778 m 03/17/19 Sandy Dawn DO 04/17/2019 3:17 PM Signed SUBJECTIVE: Ritika Vega [...] 1.18 - 3.74 thou/cmm Final - Abs. [place] 03/07/2019 0.42 0.27 - 0.70 thou/cmm Final [...] Laterality Date - EGD Upper endoscoscopy: Dr. 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 Celiac disease - ICD9: 579.0, ICD10: K90.0 Stable, continue gluten free diet 4. Need for Tdap vaccination - ICD9: V06.1, ICD10: Z23 - TDAP VACCINE AGE 7+ IM Sandy Dawn DO Referring Provider: SANDY DAWN [[id number]] Allergies As of Date: 04/17/2019 (No Known Allergies) Date Reviewed: 03/07/2019 Reviewed by: Joy Galeano - Fully Assessed Reason for Visit: Physical [83] Primary Visit Diagnosis:Encounter for general adult medical examination with abnormal findings [Z00.01] Other Visit Diagnoses:Graves disease [E05.00] Celiac disease [K90.0] Need for Tdap vaccination [Z23] Order(s):TDAP VACCINE AGE 7+ IM [[id number]] Order #: [id number] Prescriptions as of 04/17/2019 Sig: RHINOCORT NASAL [...] Status:Closed by SANDY DAWN DO on 04/17/19 Normal [facility] PROGRESSon 04-17-2019 PROGRESS HNO ID: [id number] Author: Sandy Dawn Service: ? Author Type: [...] 1.18 - 3.74 thou/cmm Final - Abs. [place] 03/07/2019 0.42 0.27 - 0.70 thou/cmm Final [...] Laterality Date - EGD Upper endoscoscopy: Dr. 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 - Norethindrone Acet-Ethinyl Est (JUNE11/27, ,) 1-20 mg-mcg [...] 97.3 (Left Tympanic) Resp 18 Ht 5' 10" (1.78m) Wt 170 lb 4.8 oz (77.2kg) [...] 242.00, ICD10: E05.00 Continue methimazole, follows with fax machine operator, next visit May 2019 3. Celiac disease - ICD9: 579.0, ICD10: K90.0 Stable, continue gluten free diet 4. Need for Tdap vaccination - ICD9: V06.1, ICD10: Z23 - TDAP VACCINE AGE 7+ IM Sandy Dawn, DO Normal [facility] CNOVon 03-07-2019 CNOV Office Visit (ENAGST ) RITIKA VEGA ([id number]) 1985 F Date Time Provider Department 03/07/19 9:30 AM JOY GALEANO During your visit today, we recorded the following information about you: Pulse Blood pressure Weight Height 81/minute 106/70 74.8 kg 1.803 m Joy Galeano MD 03/08/2019 8:11 AM Addendum . [facility] Endocrinology [address], [address] [place] [address], [address] [place] [address] Patient's name: Ritika Vega Patient's date of : 1985 Date of encounter: 03/07/2019 History of present illness: Ritika Vega is a 33 year old female who presents for follow up of an endocrinology issue. Previous history: 05/2015: TSH 0.600 (0.358-3.740 uIU/mL), at [facility] lab, 07/2018: Around this time [...] asked how she feels overall, she responded "pretty good". Feels like she is gaining weight. While trying to cut weight, training. 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 No [...] medications I prescribe (or may prescribe) is: AIT Review of Systems Constitutional: Negative for chills, [...] Laterality Date - EGD Upper endoscoscopy: Dr. 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 BP 106/70 Pulse 81 Ht 5' 11" (1.80m) Wt 165 lb (74.8kg) LMP 02/27/2019 [...] medications I prescribe (or may prescribe) is: [facility]. - TSH BLD; Future - T4 FREE/FREE [...] will send her a message, in the [employer] portal. Joy Galeano MD 03/08/2019 08:11:44 Joy Galeano MD 03/07/2019 9:51 AM Signed Methimazole (Tapazole) or propylthiouracil (PTU) notes: You are on (or may be prescribed) methimazole (Tapazole) or propylthiouracil (PTU) for your over-active thyroid gland. These drug are considered "Anti-thyroid drugs", as they are prescribed to "slow-down" the thyroid gland. Remember to call me [...] if those symptoms occur. Referring Provider: JOY GAELANO [[id number]] Allergies As of Date: 03/07/2019 (No Known Allergies) Date Reviewed: 03/07/2019 Reviewed by: Joy Galeano - Fully Assessed Reason for Visit: Thyroid Problem [110] Follow Up [171] Primary Visit Diagnosis:Graves disease [E05.00] Other Visit Diagnoses:Thyrotoxicos is without thyroid storm, unspecified thyrotoxicosis type [E05.90] Autoimmune disease (HCC) [D89.89] Celiac disease [K90.0] Taking medication for chronic disease [R69] Order(s):TSH BLD [SQTSH] Order #: [id number] FUTURE T4 FREE/FREE THYROX [SQFT4] Order #: [id number] FUTURE T3 FREE BLD [SQFREET3] Order #: [id number] FUTURE WBC W DIFF [2054237] Order #: [id number] FUTURE HEPATIC FUNCTION PNL [SQHFP] Order #: [id number] FUTURE Prescriptions as of 03/07/2019 Sig: TRIAMCINOLONE [...] over-active thyroid gland. These drug are considered "Anti-thyroid drugs", as they are prescribed to "slow-down" the thyroid gland. Remember to call me [...] by JOY GALEANO MD on 03/07/19 Normal [facility] Free T3on 03-07-2019 Free T3 [Mass/Vol] 3.9 pg/mL Normal 2.2-4.0 [facility] Comment on above: Performed By: #### F T4 #### [place] [address] Free Thyroxineon 03-07-2019 Free T4 [Mass/Vol] 1.32 ng/dL Normal 0.76-1.46 [facility] Comment on above: Performed By: #### F T4 #### [place] [address] Hepatic Panelon 03-07-2019 ALP [Catalytic activity/Vol] 90 U/L Normal 46-116 [facility] Comment on above: Performed By: #### F T4 #### [place] [address] Bilirubin [Mass/Vol] 0.15 mg/dL Normal 0.00-0.20 [facility] Comment on above: Performed By: #### F T4 #### [address] [address] Protein [Mass/Vol] 7.3 g/dL Normal 6.4-8.2 [facility] Comment on above: Performed By: #### F T4 #### [place] [address] Bilirubin [Mass/Vol] 0.5 mg/dL Normal 0.2-1.0 [facility] Comment on above: Performed By: #### F T4 #### [place] [address] ALT [Catalytic activity/Vol] 50 U/L Normal 12-78 [facility] Comment on above: Performed By: #### F T4 #### [place] [address] AST [Catalytic activity/Vol] 22 U/L Normal 9-37 [facility] Comment on above: Performed By: #### F T4 #### [facility] [address] [place], [place] [address] Albumin [Mass/Vol] 4.0 g/dL Normal 3.4-5.0 [facility] Comment on above: Performed By: #### F T4 #### [facility] [address] [place], [place] [address] PROGRESSon 03-07-2019 PROGRESS HNO ID: [id number] Author: Joy Galeano Service: ? Author Type: Physician Type: Progress Notes Filed: 03/08/2019 8:11 AM Note Text: . [facility] Endocrinology - [place] [address] [facility], [address] [place], [place] [address] [place] [address] Endocrinology - [address], [address] [place], [place] [address] Patient's name: Ritika Vega Patient's date of : 1985 Date of encounter: 03/07/2019 History of present illness: Ritika Vega is a 33 year old female who presents for follow up of an endocrinology issue. Previous history: 05/2015: TSH 0.600 (0.358-3.740 uIU/mL), at [facility] lab, 07/2018: Around this time [...] asked how she feels overall, she responded "pretty good". Feels like she is gaining weight. While trying to cut weight, training. 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 No [...] medications I prescribe (or may prescribe) [facility]: [facility] Review [facility] Systems Constitutional: Negative for chills, [...] Laterality Date - EGD Upper endoscoscopy: Dr. 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 BP 106/70 Pulse 81 Ht 5' 11" (1.80m) Wt 165 lb (74.8kg) LMP 02/27/2019 [...] medications I prescribe (or may prescribe) is: [facility]. - TSH BLD; Future - T4 FREE/FREE [...] will send her a message, in the [employer] portal. Joy Galeano MD 03/08/2019 08:11:44 Normal [facility] TSH, 3rd generationon 2018 TSH, 3rd generation <0.005 Low 0.358-3.740 [facility] Comment on above: Performed By: #### F T4 #### [place] [address] WBC with Differentialon 02-08 Abs Immature Grans 0.03 thou/cmm Normal 0.00-0.05 [facility] Comment on above: Performed By: #### M AG #### [place] [address] Abs Neut (ANC) 4.48 thou/cmm Normal 1.56-6.13 [facility] Comment on above: Performed By: #### M AG #### [place] [address] Abs. Baso 0.04 thou/cmm Normal 0.01-0.08 [facility] Comment on above: Performed By: #### M AG #### [place] [address] Abs. [place] 0.42 thou/cmm Normal 0.27-0.70 [facility] Comment on above: Performed By: #### M AG #### [place] [address] Basophils/100 WBC (Bld) 0.6 % Normal [facility] Comment on above: Performed By: #### M AG #### [place] [address] Eosinophils (Bld) [#/Vol] 0.04 thou/cmm Normal 0.00-0.31 [facility] Comment on above: Performed By: #### M AG #### [facility] [address] [place], [place] [address] Eosinophils/100 WBC (Bld) 0.6 % Normal [facility] Comment on above: Performed By: #### M AG #### [facility] [address] [place], [place] [address] Immature Grans 0.40 % Normal [facility] Comment on above: Performed By: #### M AG #### [facility] [address] [place], [place] [address] Lymphocytes (Bld) [#/Vol] 1.67 thou/cmm Normal 1.18-3.74 [facility] Comment on above: Performed By: #### M AG #### [facility] [address] [place], [place] [address] Lymphocytes/100 WBC (Bld) 25.0 % Normal [facility] Comment on above: Performed By: #### M AG #### [facility] [address] [place], [place] [address] Monocytes/100 WBC (Bld) 6.3 % Normal [facility] Comment on above: Performed By: #### M AG #### [facility] [address] [place], [place] [address] Seg Neutrophil 67.1 % Normal [facility] Comment on above: Performed By: #### M AG #### [facility] [address] [place], [place] [address] WBC (Bld) [#/Vol] 6.67 thou/cmm Normal 3.98-10.04 [facility] Comment on above: Performed By: #### M AG #### [facility] [address] [place], [place] [address] PROGRESSon 03-03-2019 PROGRESS HNO ID: [id number] Author: Joy Galeano Service: ? Author Type: Physician Type: Progress Notes Filed: 03/03/2019 1:09 PM Note Text: Note: The following is an "abstracted" note of the either a previous or a new History of Present Illness. This is in prep for an up-coming appointment. This is not a pmpc-yp-jedz encounter. Previous history as follows: Previous history: 05/2015: TSH 0.600 (0.358-3.740 uIU/mL), at [facility] lab, 07/2018: Around this time [...] 10/2018: Vitamin B-12 1058 (193-986 pg/mL), Normal [facility] CNOVon 02-28-2019 CNOV Office Visit (AGINTB A) RITIKA VEGA ([id number]) 1985 F Date Time Provider Department 02/28/19 [...] updated today in the History tab of [employer]. Current Medications and allergies reviewed. PAST MEDICAL HISTORY Diagnosis Date - B12 deficiency - Celiac disease Biopsy proven - Eating disorder history of age [age]. purging then restricting/ compulsive exercising - Graves disease 10/2018 PAST SURGICAL HISTORY Procedure Laterality Date - EGD Upper endoscoscopy: Dr. 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 Author Type: [...] updated today in the History tab of [employer]. Current Medications and allergies reviewed. PAST MEDICAL HISTORY Diagnosis Date - B12 deficiency - Celiac disease Biopsy proven - Eating disorder history of age [age]. purging then restricting/ compulsive exercising - Graves disease 10/2018 PAST SURGICAL HISTORY Procedure Laterality Date - EGD Upper endoscoscopy: Dr. 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 Mio Little MD Normal [facility] Free T3on 12-08-2018 Free T3 [Mass/Vol] 4.5 pg/mL High 2.2-4.0 [facility] Comment on above: Performed By: #### M AG #### [facility] [address] [place], [place] [address] Free Thyroxineon 12-08-2018 Free T4 [Mass/Vol] 1.70 ng/dL High 0.76-1.46 [facility] Comment on above: Performed By: #### M AG #### [facility] [address] [place], [place] [address] Hepatic Panelon 12-08-2018 ALP [Catalytic activity/Vol] 69 U/L Normal 46-116 [facility] Comment on above: Performed By: #### M AG #### [facility] [address] [place], [place] [address] ALT [Catalytic activity/Vol] 43 U/L Normal 12-78 [facility] Comment on above: Performed By: #### M AG #### [facility] [address] [place], [place] [address] Bilirubin [Mass/Vol] 0.12 mg/dL Normal 0.00-0.20 [facility] Comment on above: Performed By: #### M AG #### [facility] [address] [place], [place] [address] Protein [Mass/Vol] 6.5 g/dL Normal 6.4-8.2 [facility] Comment on above: Performed By: #### M AG #### [facility] [address] [place], [place] [address] Bilirubin [Mass/Vol] 0.4 mg/dL Normal 0.2-1.0 [facility] Comment on above: Performed By: #### M AG #### [facility] [address] [place], [place] [address] AST [Catalytic activity/Vol] 22 U/L Normal 9-37 [facility] Comment on above: Performed By: #### M AG #### [facility] [address] [place], [place] [address] Albumin [Mass/Vol] 3.7 g/dL Normal 3.4-5.0 [facility] Comment on above: Performed By: #### M AG #### [facility] [address] [place], [place] [address] TSH, 3rd generationon 2018 TSH, 3rd generation <0.005 Low 0.358-3.740 [facility] Comment on above: Performed By: #### M AG #### [facility] [address] [place] [address] WBC with Differentialon 11-10 Abs Immature Grans 0.02 thou/cmm Normal 0.00-0.05 [facility] Comment on above: Performed By: #### M AG #### [facility] [address] [place] [address] Abs. Baso 0.02 thou/cmm Normal 0.01-0.08 [facility] Comment on above: Performed By: #### M AG #### [place] [address] Abs. [place] 0.37 thou/cmm Normal 0.27-0.70 [facility] Comment on above: Performed By: #### M AG #### [place] [address] Abs. Neut (ANC) 3.38 thou/cmm Normal 1.56-6.13 [facility] Comment on above: Performed By: #### M AG #### [place] [address] Basophils/100 WBC (Bld) 0.4 % Normal [facility] Comment on above: Performed By: #### M AG #### [place] [address] Eosinophils (Bld) [#/Vol] 0.03 thou/cmm Normal 0.00-0.31 [facility] Comment on above: Performed By: #### M AG #### [place] [address] Eosinophils/100 WBC (Bld) 0.6 % Normal [facility] Comment on above: Performed By: #### M AG #### [place] [address] Immature Grans 0.40 % Normal [facility] Comment on above: Performed By: #### M AG #### [facility] [address] [place], [place] [address] Lymphocytes (Bld) [#/Vol] 0.98 thou/cmm Low 1.18-3.74 [facility] Comment on above: Performed By: #### M AG #### [facility] [address] [place], [place] [address] Lymphocytes/100 WBC (Bld) 20.4 % Normal [facility] Comment on above: Performed By: #### M AG #### [facility] [address] [place], [place] [address] Monocytes/100 WBC (Bld) 7.7 % Normal [facility] Comment on above: Performed By: #### M AG #### [facility] [address] [place], [place] [address] Seg Neutrophil 70.5 % Normal [facility] Comment on above: Performed By: #### M AG #### [facility] [address] [place], [place] [address] WBC (Bld) [#/Vol] 4.80 thou/cmm Normal 3.98-10.04 [facility] Comment on above: Performed By: #### M AG #### [facility] [address] [place], [place] [address] CNOVon 12-06-2018 CNOV Office Visit (THIEN ) RITIKA VEGA ([id number]) 1985 F Date Time Provider Department 12/06/18 9:30 AM JOY GALEANO During your visit today, we recorded the following information about you: Pulse Blood pressure Weight Height 66/minute 107/71 73.1 kg 1.803 m Joy Galeano MD 12/08/2018 5:17 PM Addendum . [facility] General Endocrinology - [place] [address] [facility], [address] Endocrinology - [address], [address] [place], [place] [address] Patient's name: Ritika Vega Patient's date of : 1985 Date of encounter: 12/06/2018 History of present illness: Ritika Vega is a 33 year old female who presents for follow up of an endocrinology issue. Previous history: 05/2015: TSH 0.600 (0.358-3.740 uIU/mL), at [facility] lab, 07/2018: Around this time [...] she feels overall, she responded pretty good, actually". Thinks better overall since methimazole use. Notes [...] medications I prescribe (or may prescribe) is: [facility] [place] [place] [address] [address]??- [phone] Portal to Registered [facility] Sites Review of Systems Constitutional: Positive for [...] Laterality Date - EGD Upper endoscoscopy: Dr. 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 BP 107/71 Pulse 66 Ht 5' 11" (1.80m) Wt 161 lb 3.2 oz (73.1kg) [...] medications I prescribe (or may prescribe) is: [facility] [place] [address] - [address]- [phone] Portal to [facility] Sites - TSH BLD; Future - T4 [...] least 48 hours, then get labs at [facility]. Joy Galeano MD 12/06/2018 10:01:39 Addendum to [...] will send her a message, in the [employer] portal. Joy Galeano MD 12/08/2018 17:17:20 Joy Galeano MD 12/06/2018 9:46 AM Signed Methimazole (Tapazole) or propylthiouracil (PTU) notes: You are on (or may be prescribed) methimazole (Tapazole) or propylthiouracil (PTU) for your over-active thyroid gland. These drug are considered "Anti-thyroid drugs", as they are prescribed to "slow-down" the thyroid gland. Remember to call me [...] disease [R69] Order(s):TSH BLD [SQTSH] Order #: [id number] FUTURE T4 FREE/FREE THYROX [SQFT4] Order #: [id number] FUTURE T3 FREE BLD [SQFREET3] Order #: [id number] FUTURE WBC W DIFF [0830116] Order #: [id number] FUTURE HEPATIC FUNCTION PNL [SQHFP] Order #: [id number] FUTURE Prescriptions as of 12/06/2018 Sig: BIOTIN [...] over-active thyroid gland. These drug are considered "Anti-thyroid drugs", as they are prescribed to "slow-down" the thyroid gland. Remember to call me [...] Status:Closed by JOY GALEANO MD on 12/06/18 [facility] PROGRESSon 12-06-2018 PROGRESS HNO ID: [id number] Author: Joy Galeano Service: (none) Author Type: Physician Type: Progress Notes Filed: 12/08/2018 5:17 PM Note Text: . [facility] General Endocrinology - [place] [address] [facility], [address] [place], [place] [address] [facility] General Endocrinology - [address], [address] [place], [place] [address] Patient's name: Ritika Vega Patient's date of : 1985 Date of encounter: 12/06/2018 History of present illness: Ritika Vega is a 33 year old female who presents for follow up of an endocrinology issue. Previous history: 05/2015: TSH 0.600 (0.358-3.740 uIU/mL), at [facility] lab, 07/2018: Around this time [...] she feels overall, she responded pretty good, actually". Thinks better overall since methimazole use. Notes [...] medications I prescribe (or may prescribe) is: [facility] [place] [address] - [address]??- [phone] Portal to [facility] Sites Review of Systems Constitutional: Positive for [...] Laterality Date - EGD Upper endoscoscopy: Dr. 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 BP 107/71 Pulse 66 Ht 5' 11" (1.80m) Wt 161 lb 3.2 oz (73.1kg) [...] medications I prescribe (or may prescribe) [facility]: [facility] [place] [address] - [address]??- [phone] Portal to [facility] Sites - TSH BLD; Future - T4 [...] least 48 hours, then get labs at [facility]. Joy Galeano MD 12/06/2018 [...] will send her a message, in the [employer] portal. Joy Galeano MD 12/08/2018 17:17:20 Normal [facility] PROGRESSon 12-01-2018 PROGRESS HNO ID: [id number] Author: Joy Galeano Service: (none) Author Type: Physician Type: Progress Notes Filed: 12/01/2018 5:27 PM Note Text: Note: The following is an "abstracted" note of the previous History of Present Illness, in prep for an up-coming appointment. This is not a etem-ww-awdg encounter. Previous history as follows: Previous history: 05/2015: TSH 0.600 (0.358-3.740 uIU/mL), at [facility] lab, 07/2018: Around this time [...] pg/mL), But, currently ok on oral. Normal [facility] Hepatic Panelon 11-24-2018 Bilirubin [Mass/Vol] 0.12 mg/dL Normal 0.00-0.20 [facility] Comment on above: Performed By: #### M AG #### [facility] [address] [place], [place] [address] ALP [Catalytic activity/Vol] 59 U/L Normal 46-116 [facility] Comment on above: Performed By: #### M AG #### [facility] [address] [place], [place] [address] Protein [Mass/Vol] 6.4 g/dL Normal 6.4-8.2 [facility] Comment on above: Performed By: #### M AG #### [facility] [address] [place], [place] [address] ALT [Catalytic activity/Vol] 46 U/L Normal 12-78 [facility] Comment on above: Performed By: #### M AG #### [facility] [address] [place], [place] [address] Bilirubin [Mass/Vol] 0.4 mg/dL Normal 0.2-1.0 [facility] Comment on above: Performed By: #### M AG #### [facility] [address] [place], [place] [address] AST [Catalytic activity/Vol] 19 U/L Normal 9-37 [facility] Comment on above: Performed By: #### M AG #### [facility] [address] [place], [place] [address] Albumin [Mass/Vol] 3.6 g/dL Normal 3.4-5.0 [facility] Comment on above: Performed By: #### M AG #### [facility] [address] [place], [place] [address] TSH Receptor Antibodyon 10-09 TSH Receptor Antibody SEE BELOW Normal [facility] Comment on above: Result Comment: TSI 481 H <150 % Normal This test was developed and its performance characteristics determined by [facility]'s [facility] [place] ([facility]). It has not been cleared or approved by the FDA. -[facility] is regulated under CLIA as qualified to perform high-complexity testing. This test is used for clinical purposes. It should not be regarded as investigational or for research. TBI 13.9 H <1.0 U/L This test was developed and its performance characteristics determined by [facility]'s [facility] [place] ([facility]). It has not been cleared or approved by the FDA. [facility] is regulated under CLIA as qualified to perform high-complexity testing. This test is used for clinical purposes. It should not be regarded as investigational or for research. Performing Laboratory: [facility] [address] [place] [id number] Performed By: #### M AG #### [facility] [address] [place] [address] CNOVon 10-25-2018 CNOV Office Visit (ENAGST ) VEGARITIKA SHEPPARD ([id number]) 1985 F Date Time Provider Department 10/25/18 3:15 PM JOY GALEANO During your visit today, we recorded the following information about you: Pulse Blood pressure Weight Height 52/minute 104/67 71.3 kg 1.8 m Joy Galeano MD 11/04/2018 11:49 AM Addendum . [facility] Endocrinology - [address], [address] [place] [address] Endocrinology - [address], [address] [place] [address] Patient's name: Ritika Vega Patient's date of : 1985 Date of encounter: 10/25/2018 History of present illness: Ritika Vega is a 32 year old female who presents for an evaluation of an endocrine issue. She was referred to me by Dr Jim Dawn for an evaluation of thyrotoxicosis. 05/2015: TSH 0.600 (0.358-3.740 uIU/mL), at [facility] lab, 07/2018: Around this time [...] pending. Initial consultation with me. 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 Of note, known heart murmur. Noted the palpitations for few months. Saw orthopedic recently, noted low BP. Then saw Primary Care Physician, as above. Not using any kupu-vig-dsdhccd Biotin supplements, or mulivitamins with large doses [...] Laterality Date - EGD Upper endoscoscopy: Dr. GriffithXuej-Brwxn-Gdazrsv Celiac Disease - ELBOW SURGERY HX 2008 [...] visit. BP 104/67 Pulse 52 Ht 5' 10.87" (1.80m) Wt 157 lb 3.2 oz (71.3kg) [...] 30 day supply for initial Rx to: [facility]/pharmacy #[id number] [place] [address] [address] [facility]??- [phone] ) 2. Celiac disease On gluten free [...] will send her a message, in the [employer] portal. Joy Galeano MD 11/04/2018 11:49:11 Joy Galeano MD 10/25/2018 3:43 PM Signed Methimazole (Tapazole) or propylthiouracil (PTU) notes: You are on (or may be prescribed) methimazole (Tapazole) or propylthiouracil (PTU) for your over-active thyroid gland. These drug are considered "Anti-thyroid drugs", as they are prescribed to "slow-down" the thyroid gland. Remember to call me [...] those symptoms occur. 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 These drug are considered "Anti-thyroid drugs", as they are prescribed to "slow-down" the thyroid gland. Remember to call me [...] Status:Closed by JOY GALEANO MD on 10/25/18 [facility]2018 [facility] Telephone ([facility]) RITIKA VEGA ([id number]) 1985 F Date Time Provider Department 10/25/18 SANDY DAWN [facility] During your visit today, we recorded the following information about you: Celio Mary [employer] Spinner 10/25/2018 10:56 AM Signed Order placed via [facility] online referrals portal for consult to endocrinology. Referral # [id number] Celio Mary [employer] Spinner 11/17/2018 2:03 PM Signed Good Morning, This e-mail is a confirmation that your patient listed below has been scheduled for an appointment with [employer] should you have any questions or concerns regarding this appointment please contact the appropriate office directly: Medical Records (Please Note) x Medical Records Are Not Required: Referring Office AND Specialist Are Both On [facility]. Medical Records Are Required: Fax Appropriate Records Including: Order, Last Office Note, AND Any Necessary Imaging/Labs/Etc. To: Additional Office Location Information AND Phone Numbers [employer] ? [facility] AND [facility] ? [address] [place] [address], [address], [place] [address] ? [facility] ? [facility] Well[facility] ? [address] [place] [address]. [address] [place] [address] ? Allergies As of Date: 10/25/2018 (No [...] elbow [M19.022] INVALID FOR* Encounter Status:Closed by CELIO PEREZ on 10/25/18 [facility] PROGRESSon 10-25-2018 PROGRESS HNO ID: [id number] Author: Joy Galeano Service: (none) Author Type: Physician Type: Progress Notes Filed: 11/04/2018 11:49 AM Note Text: . [facility] General Endocrinology - [address], [address] [place] [address] Endocrinology - [address], [address] [place], [place] [address] Patient's name: Ritika Vega Patient's date of : 1985 Date of encounter: 10/25/2018 History of present illness: Ritika Vega is a 32 year old female who presents for an evaluation of an endocrine issue. She was referred to me by Dr Jim Dawn for an evaluation of thyrotoxicosis. 05/2015: TSH 0.600 (0.358-3.740 uIU/mL), at [facility] lab, 07/2018: Around this time [...] pending. Initial consultation with me. 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 Of note, known heart murmur. Noted the palpitations for few months. Saw orthopedic recently, noted low BP. Then saw Primary Care Physician, as above. Not using any iajm-ugy-mpauayr Biotin supplements, or mulivitamins with large doses [...] Laterality Date - EGD Upper endoscoscopy: Dr. GriffithDvtq-Yawhs-Ngaekvy Celiac Disease - ELBOW SURGERY HX 2008 [...] visit. BP 104/67 Pulse 52 Ht 5' 10.87" (1.80m) Wt 157 lb 3.2 oz (71.3kg) [...] in 90 day supplies, once labs reviewed. Jitendraberea. (But can do 30 day supply for initial Rx to: [facility]/pharmacy #[id number] [place] [address] - [address] [facility]??- [phone] ) 2. Celiac disease On gluten free [...] will send her a message, in the [employer] portal. Joy Galeano MD 11/04/2018 11:49:11 Normal [facility] T3, Totalon 10-19-2018 T3, Total 2.4 ng/mL High 0.6-1.8 [facility] Comment on above: Performed By: #### M AG #### [facility] [address] [place] [id number] Thyro. Peroxidase Abon 10-19 TPO Ab Qn 1568.3 IU/ml High 0.0-60.0 [facility] Comment on above: Performed By: #### M AG #### [facility] [address] [place] [address] Free Thyroxineon 10-18-2018 Free T4 [Mass/Vol] 2.20 ng/dL High 0.76-1.46 [facility] Comment on above: Performed By: #### F T4 #### [place] [address] TSH, 3rd generationon 2017 TSH, 3rd generation <0.005 Low 0.358-3.740 [facility] Comment on above: Performed By: #### T SH3 #### [place] [address] Total 25-OH Vitamin Don 12-0 Total 25-OH Vitamin D 36.2 ng/mL Normal 30.0-100.0 [facility] Comment on above: Performed By: #### 2 5VD1 #### [place] [address] CNOVon 10-13-2018 CNOV Office Visit ([facility]) RITIKA VEGA ([id number]) 1985 F Date Time Provider Department 10/13/18 11:40 AM SANDY DAWN [facility] During your visit today, we recorded the following information about you: Temperature Pulse Respiration Blood pressure 96.4 degrees 56/minute 17/minute 102/64 Weight Height Last Period 70.8 kg 1.8 m 10/11/18 Sandy Dawn DO 10/13/2018 1:27 PM Signed Ritika Vega is a 32 year old female who presents with complaint of low BP, fatigue, palpitations, ear pressure HPI Went to recreational specialist to get a cortisone shot in [...] - PAST SURGICAL HISTORY OF UPPER ENDOSCOPY-DR GriffithWeba-Onfuy-Zoeqynn Celiac Disease - TONSILLECTOMY AND ADENOIDECTOMY HX [...] by mouth. Disp: Rfl: Norethindrone Acet-Ethinyl Est (,) 1-20 [...] 1 Bottle Rfl: 0 Norethin Wilmer-Eth Estrad-FE (,) 1.5 mg-30 mcg (21)/75 mg (7) tablet [...] 56 Temp 96.4 Resp 17 Ht 5' 10.866" (1.80m) Wt 156 lb (70.8kg) LMP 10/11/2018 [...] 796.3, ICD10: R03.1 reassurance given. Sandy Dawn, Referring Provider: SELF [200] Allergies As of Date: 10/13/2018 (No Known Allergies) Date Reviewed: 10/13/2018 Reviewed by: [facility] - Fully Assessed Reason for Visit: Follow Up [171] Primary Visit Diagnosis:Palpitations [R00.2] Other Visit Diagnoses:Fatigue, unspecified type [R53.83] Eustachian tube dysfunction, bilateral [H69.83] Low blood pressure reading [R03.1] Order(s):CBC + DIFF [SQCBCDIF] Order #: [id number] FUTURE MAGNESIUM BLD [SQMG1] Order #: [id number] FUTURE VITAMIN D 25 HYDROXY [SQVITD] Order #: [id number] FUTURE TSH BLD [SQTSH] Order #: [id number] FUTURE VITAMIN B12 BLOOD [SQB12] Order #: [id number] FUTURE T4 FREE/FREE THYROX [SQFT4] Order #: [id number] FUTURE COMP METABOLIC PANEL [SQCMP] Order #: [id number] FUTURE ECG B/O W INTERP (MED OFFICE) [ECG06] Order #: [id number] Prescriptions as of 10/13/2018 Sig: NORETHINDRONE ACETATE [...] by SANDY DAWN DO on 10/13/18 Normal [facility] Comprehensive Panelon 2017 ALP [Catalytic activity/Vol] 69 U/L Normal 46-116 [facility] Comment on above: Performed By: #### P 14 #### [facility] [address] [place], [place] [address] Bilirubin [Mass/Vol] 0.4 mg/dL Normal 0.2-1.0 [facility] Comment on above: Performed By: #### P 14 #### [facility] [address] [place], [place] [address] Protein [Mass/Vol] 7.1 g/dL Normal 6.4-8.2 [facility] Comment on above: Performed By: #### P 14 #### [facility] [address] [place], [place] [address] ALT [Catalytic activity/Vol] 51 U/L Normal 12-78 [facility] Comment on above: Performed By: #### P 14 #### [facility] [address] [place], [place] [address] AST [Catalytic activity/Vol] 22 U/L Normal 9-37 [facility] Comment on above: Performed By: #### P 14 #### [facility] [address] [place], [place] [address] Creatinine [Mass/Vol] 0.87 mg/dL Normal 0.51-0.95 [facility] Comment on above: Performed By: #### P 14 #### [facility] [address] [place], [place] [address] Albumin [Mass/Vol] 3.6 g/dL Normal 3.4-5.0 [facility] Comment on above: Performed By: #### P 14 #### [facility] [address] [place], [place] [address] Anion gap [Moles/Vol] 16 mmol/L Normal 8-16 [facility] Comment on above: Performed By: #### P 14 #### [facility] [address] [place], [place] [address] CO2 [Moles/Vol] 24 mmol/L Normal 21-32 [facility] Comment on above: Performed By: #### P 14 #### [facility] [address] [place], [place] [address] Glucose [Mass/Vol] 69 mg/dL Low 70-99 [facility] Comment on above: Performed By: #### P 14 #### [facility] [address] [place], [place] [address] Urea nitrogen [Mass/Vol] 19 mg/dL High 7-18 [facility] Comment on above: Performed By: #### P 14 #### [facility] [address] [place], [place] [address] Calcium [Mass/Vol] 8.9 mg/dL Normal 8.5-10.1 [facility] Comment on above: Performed By: #### P 14 #### [facility] [address] [place] [address] Chloride [Moles/Vol] 105 mmol/L Normal 98-107 [facility] Comment on above: Performed By: #### P 14 #### [facility] [address] [place] [address] Potassium [Moles/Vol] 5.0 mmol/L Normal 3.5-5.1 [facility] Comment on above: Performed By: #### P 14 #### [facility] [address] [place] [address] Sodium [Moles/Vol] 140 mmol/L Normal 136-145 [facility] Comment on above: Performed By: #### P 14 #### [facility] [address] [place] [address] Free Thyroxineon 10-13-2018 Free T4 [Mass/Vol] 2.19 ng/dL High 0.76-1.46 [facility] Comment on above: Performed By: #### F T4 #### [facility] [address] [place] [address] Hemogram/Diffon 10-13-2018 Abs Immature Grans 0.02 thou/cmm Normal 0.00-0.05 [facility] Comment on above: Performed By: #### C BCD1 #### [facility] [address] [place] [address] Abs. Baso 0.03 thou/cmm Normal 0.01-0.08 [facility] Comment on above: Performed By: #### C BCD1 #### [facility] [address] [place] [address] Abs. [place] 0.52 thou/cmm Normal 0.27-0.70 [facility] Comment on above: Performed By: #### C BCD1 #### [facility] [address] [place] [address] Abs. Neut (ANC) 4.16 thou/cmm Normal 1.56-6.13 [facility] Comment on above: Performed By: #### C BCD1 #### [facility] [address] [place], [place] [address] Basophils/100 WBC (Bld) 0.4 % Normal [facility] Comment on above: Performed By: #### C BCD1 #### [facility] [address] [place], [place] [address] Eosinophils (Bld) [#/Vol] 0.04 thou/cmm Normal 0.00-0.31 [facility] Comment on above: Performed By: #### C BCD1 #### [facility] [address] [place], [place] [address] Eosinophils/100 WBC (Bld) 0.6 % Normal [facility] Comment on above: Performed By: #### C BCD1 #### [facility] [address] [place], [place] [address] Erythrocyte distribution width (RBC) [Ratio] 11.9 % Normal 11.7-14.4 [facility] Comment on above: Performed By: #### C BCD1 #### [facility] [address] [place], [place] [address] Hematocrit (Bld) [Volume fraction] 43.2 % Normal 34.1-44.9 [facility] Comment on above: Performed By: #### C BCD1 #### [facility] [address] [place], [place] [address] Hemoglobin (Bld) [Mass/Vol] 14.2 g/dL Normal 11.2-15.7 [facility] Comment on above: Performed By: #### C BCD1 #### [facility] [address] [place], [place] [address] Immature Grans 0.30 % Normal [facility] Comment on above: Performed By: #### C BCD1 #### [facility] [address] [place], [place] [address] Lymphocytes (Bld) [#/Vol] 2.01 thou/cmm Normal 1.18-3.74 [facility] Comment on above: Performed By: #### C BCD1 #### [facility] [address] [place], [place] [address] Lymphocytes/100 WBC (Bld) 29.6 % Normal [facility] Comment on above: Performed By: #### C BCD1 #### [facility] [address] [place], [place] [address] MCH (RBC) [Entitic mass] 31.0 pg Normal 25.6-32.2 [facility] Comment on above: Performed By: #### C BCD1 #### [facility] [address] [place], [place] [address] MCHC (RBC) [Mass/Vol] 32.9 % Normal 31.6-34.8 [facility] Comment on above: Performed By: #### C BCD1 #### [facility] [address] [place] [address] MCV (RBC) [Entitic vol] 94.3 fL Normal 79.4-94.8 [facility] Comment on above: Performed By: #### C BCD1 #### [facility] [address] [place] [address] Monocytes/100 WBC (Bld) 7.7 % Normal [facility] Comment on above: Performed By: #### C BCD1 #### [facility] [address] [place] [address] Platelet mean volume (Bld) [Entitic vol] 10.8 fL Normal 9.4-12.3 [facility] Comment on above: Performed By: #### C BCD1 #### [facility] [address] [place] [address] Platelets (Bld) [#/Vol] 322 thou/cmm Normal 182-369 [facility] Comment on above: Performed By: #### C BCD1 #### [facility] [address] [place] [address] RBC (Bld) [#/Vol] 4.58 mil/cmm Normal 3.93-5.22 [facility] Comment on above: Performed By: #### C BCD1 #### [facility] [address] [place] [address] RDW SD 41.5 fl Normal 36.4-46.3 [facility] Comment on above: Performed By: #### C BCD1 #### [facility] [address] [place] [address] Seg Neutrophil 61.4 % Normal [facility] Comment on above: Performed By: #### C BCD1 #### [facility] [address] [place] [id number] WBC (Bld) [#/Vol] 6.78 thou/cmm Normal 3.98-10.04 [facility] Comment on above: Performed By: #### C BCD1 #### [facility] [address] [place] [id number] MDRD GFRon 10-13-2018 GFR/1.73 sq M predicted among non-blacks MDRD (S/P/Bld) [Vol rate/Area] mL/min/{1.73_m2} Normal >60mL/min/1. 73m2 [facility] Comment on above: Result Comment: If t he patient is , multiply the result by 1.210. Performed By: #### G FR #### [facility] [address] [place] [address] Magnesium Bloodon 10-13-2018 Magnesium [Mass/Vol] 2.2 mg/dL Normal 1.6-2.6 [facility] Comment on above: Performed By: #### M AG #### [place] [address] PROGRESSon 10-13-2018 PROGRESS HNO ID: [id number] Author: Sandy Dawn Service: (none) Author Type: Physician Type: Progress Notes Filed: 10/13/2018 1:27 PM Note Text: Ritika Vega is a 32 year old female who presents with complaint of low BP, fatigue, palpitations, ear pressure HPI Went to recreational specialist to get a cortisone shot in [...] - PAST SURGICAL HISTORY OF UPPER ENDOSCOPY-DR GriffithAuvh-Hwgmj-Vurcwha Celiac Disease - TONSILLECTOMY AND ADENOIDECTOMY HX [...] 1 Bottle Rfl: 0 Norethin Wilmer-Eth Estrad-FE (,) 1.5 mg-30 mcg (21)/75 mg (7) tablet [...] 56 Temp 96.4 Resp 17 Ht 5' 10.866" (1.80m) Wt 156 lb (70.8kg) LMP 10/11/2018 [...] R03.1 reassurance given. Sandy Dawn, DO Normal [facility] TSH, 3rd generationon 2017 TSH, 3rd generation <0.005 Low 0.358-3.740 [facility] Comment on above: Performed By: #### T SH3 #### [facility] [address] [place] [address] Vitamin B12on 10-13-2018 Cobalamin (Vitamin B12) [Mass/Vol] 1058 pg/mL High 193-986 [facility] Comment on above: Performed By: #### B 12 #### [facility] [address] [place], [place] [address] Vital Signs Date Time Vital Sign Value Performing Clinician Fidel winter 02-15-2025 08:35-0400 Body height 180.34 cm Yony Phan MD Work Phone: [facility] 02-15-2025 08:35-0400 Body mass index (BMI) [Ratio] 22.4 kg/m2 Yony Phan MD Work Phone: [facility] 02-15-2025 08:35-0400 Body weight 73.02 kg Yony Phan MD Work Phone: [facility] 02-15-2025 08:35-0400 Diastolic blood pressure 75 mm[Hg] Yony Phan MD Work Phone: [facility] 02-15-2025 08:35-0400 Heart rate 65 /min Yony Phan MD Work Phone: [facility] 02-15-2025 08:35-0400 SaO2% (BldA) [Mass fraction] 98 % Yony Phan MD Work Phone: [facility] 02-15-2025 08:35-0400 Systolic blood pressure 109 mm[Hg] Yony Phan MD Work Phone: [facility] 01-01-2025 09:05-0500 Body height 180.34 cm Yony Phan MD Work Phone: [facility] 01-01-2025 09:02-0500 Body mass index (BMI) [Ratio] 22.3 kg/m2 Yony Phan MD Work Phone: [facility] 01-01-2025 09:02-0500 Body weight 72.57 kg Yony Phan MD Work Phone: [facility] 01-01-2025 09:02-0500 Diastolic blood pressure 75 mm[Hg] Yony Phan MD Work Phone: [facility] 01-01-2025 09:02-0500 Systolic blood pressure 120 mm[Hg] Yony Phan MD Work Phone: [facility] 11-14-2024 09:02-0500 Body height 180.3 cm Jazmyne Argueta APRN - [employer] Work Phone: [facility] 11-14-2024 09:02-0500 Body mass index (BMI) [Ratio] 22.32 kg/m2 Jazmyne Argueta APRN - [employer] Work Phone: [facility] [employer] 11-14-2024 09:02-0500 Body weight 72.58 kg Jazmyne Argueta APRN - [employer] Work Phone: [facility] [employer] 11-14-2024 09:02-0500 Diastolic blood pressure 78 mm[Hg] Jazmyne Argueta APRN - [employer] Work Phone: [facility] [employer] 11-14-2024 09:02-0500 Heart rate 61 /min Jazmyne Argueta APRN - [employer] Work Phone: [facility] [employer] 11-14-2024 09:02-0500 Systolic blood pressure 124 mm[Hg] Jazmyne Arguetamanohar ECHOLS - [employer] Work Phone: [facility] 11-06-2024 19:00-0500 Diastolic blood pressure 64 mm[Hg] Pedro Edwards MD Work Phone: [facility] 11-06-2024 19:00-0500 Heart rate 81 /min Pedro Edwards MD Work Phone: [facility] 11-06-2024 19:00-0500 SaO2% (BldA) [Mass fraction] 100 % Pedro Edwards MD Work Phone: [facility] 11-06-2024 19:00-0500 Systolic blood pressure 119 mm[Hg] Pedro Edwards MD Work Phone: [facility] 11-06-2024 17:45-0500 Body temperature 97 [degF] Pedro Edwards MD Work Phone: [facility] 11-06-2024 15:45-0500 Respiratory rate 14 /min Pedro Edwards MD Work Phone: [facility] 11-06-2024 11:44-0500 Body height 180.3 cm Pedro Edwards MD Work Phone: [facility] 11-06-2024 11:44-0500 Body mass index (BMI) [Ratio] 22.32 kg/m2 Pedro Edwards MD Work Phone: [facility] 11-06-2024 11:44-0500 Body weight 72.58 kg Pedro Edwards MD Work Phone: [facility] 10-30-2024 15:15-0500 Body height 180.3 cm Pedro Edwards MD Work Phone: [facility] 10-30-2024 15:15-0500 Body mass index (BMI) [Ratio] 22.45 kg/m2 Pedro Edwards MD Work Phone: [facility] 10-30-2024 15:15-0500 Body weight 73.03 kg Pedro Edwards MD Work Phone: [facility] 10-30-2024 15:15-0500 Diastolic blood pressure 85 mm[Hg] Pedro Edwards MD Work Phone: [facility] 10-30-2024 15:15-0500 Heart rate 62 /min Pedro Edwards MD Work Phone: [facility] 10-30-2024 15:15-0500 Systolic blood pressure 133 mm[Hg] Pedro Edwards MD Work Phone: [facility] 03-09-2024 08:36-0400 Body height 180.34 cm DO Nacho Iban Work Phone: [facility] 03-09-2024 08:36-0400 Body mass index (BMI) [Ratio] 22.3 kg/m2 DO Nacho Iban Work Phone: [facility] 03-09-2024 08:36-0400 Body temperature 97.5 [degF] DO Nacho Iban Work Phone: [facility] 03-09-2024 08:36-0400 Body weight 72.57 kg DO Nacho Iban Work Phone: [facility] 03-09-2024 08:36-0400 Diastolic blood pressure 69 mm[Hg] DO Nacho Iban Work Phone: [facility] 03-09-2024 08:36-0400 Heart rate 60 /min DO Nacho Iban Work Phone: [facility] 03-09-2024 08:36-0400 SaO2% (BldA) [Mass fraction] 98 % DO Nacho Iban Work Phone: [facility] 03-09-2024 08:36-0400 Systolic blood pressure 116 mm[Hg] DO Nacho Iban Work Phone: [facility] 12-29-2023 13:42-0500 Body mass index (BMI) [Ratio] 22.3 kg/m2 DO Nacho Iban Work Phone: [facility] 12-29-2023 13:42-0500 Body temperature 98.2 [degF] DO Nacho Iban Work Phone: [facility] 12-29-2023 13:42-0500 Body weight 72.57 kg DO Nacho Iban Work Phone: [facility] 12-29-2023 13:42-0500 Diastolic blood pressure 68 mm[Hg] DO Nacho Iban Work Phone: [facility] 12-29-2023 13:42-0500 Heart rate 74 /min DO Nacho Iban Work Phone: [facility] 12-29-2023 13:42-0500 SaO2% (BldA) [Mass fraction] 99 % DO Nacho Iban Work Phone: [facility] 12-29-2023 13:42-0500 Systolic blood pressure 104 mm[Hg] DO Nacho Iban Work Phone: [facility] 11-11-2023 08:06-0500 Body height 180.34 cm DO Nacho Iban Work Phone: [facility] 11-11-2023 08:06-0500 Body mass index (BMI) [Ratio] 22.6 kg/m2 DO Nacho Iban Work Phone: [facility] 11-11-2023 08:06-0500 Body weight 73.7 kg DO Nacho Iban Work Phone: [facility] 11-11-2023 08:06-0500 Diastolic blood pressure 70 mm[Hg] DO Nacho Iban Work Phone: [facility] 11-11-2023 08:06-0500 Systolic blood pressure 107 mm[Hg] DO Nacho Iban Work Phone: [facility] 09-09-2023 14:58-0400 Body height 180.34 cm DO Nachosanta Barrynger Work Phone: [facility] 09-09-2023 14:58-0400 Body mass index (BMI) [Ratio] 22.5 kg/m2 DO Nacho Iban Work Phone: [facility] 09-09-2023 14:58-0400 Body temperature 98 [degF] DO Nacho Iban Work Phone: [facility] 09-09-2023 14:58-0400 Body weight 73.19 kg DO Nacho Iban Work Phone: [facility] 09-09-2023 14:58-0400 Diastolic blood pressure 76 mm[Hg] DO Nacho Iban Work Phone: [facility] 09-09-2023 14:58-0400 Heart rate 80 /min DO Nachosanta Barrynger Work Phone: [facility] 09-09-2023 14:58-0400 Respiratory rate 16 /min DO Nacho Barrynger Work Phone: [facility] 09-09-2023 14:58-0400 SaO2% (BldA) [Mass fraction] 98 % DO Nachosanta Barrynger Work Phone: [facility] 09-09-2023 14:58-0400 Systolic blood pressure 128 mm[Hg] DO Nachosanta Barrynger Work Phone: [facility] 04-08-2023 08:01-0400 Body height 180.34 cm DO Nachosanta Barrynger Work Phone: [facility] 04-08-2023 08:01-0400 Body mass index (BMI) [Ratio] 22.1 kg/m2 DO Nacho Iban Work Phone: [facility] 04-08-2023 08:01-0400 Body temperature 98.4 [degF] DO Nacho Iban Work Phone: [facility] 04-08-2023 08:01-0400 Body weight 71.89 kg DO Nacho Nugenter Work Phone: [facility] 04-08-2023 08:01-0400 Diastolic blood pressure 66 mm[Hg] DO Nacho Nugenter Work Phone: [facility] 04-08-2023 08:01-0400 Heart rate 64 /min DO Nacho Nugenter Work Phone: [facility] 04-08-2023 08:01-0400 Respiratory rate 16 /min DO Nacho Nugenter Work Phone: [facility] 04-08-2023 08:01-0400 SaO2% (BldA) [Mass fraction] 98 % DO Nacho Ferrera Work Phone: [facility] 04-08-2023 08:01-0400 Systolic blood pressure 115 mm[Hg] DO Nacho Nugenter Work Phone: [facility] 10-08-2022 08:07-0500 Body height 180.34 cm No Primary Care Physician [facility] 10-08-2022 08:07-0500 Body mass index (BMI) [Ratio] 22.4 kg/m2 No Primary Care Physician [facility] 10-08-2022 08:07-0500 Body temperature 97.1 [degF] No Primary Care Physician [facility] 10-08-2022 08:07-0500 Body weight 72.8 kg No Primary Care Physician [facility] 10-08-2022 08:07-0500 Diastolic blood pressure 73 mm[Hg] No Primary Care Physician [facility] 10-08-2022 08:07-0500 Heart rate 56 /min No Primary Care Physician [facility] 10-08-2022 08:07-0500 Respiratory rate 18 /min No Primary Care Physician [facility] 10-08-2022 08:07-0500 SaO2% (BldA) [Mass fraction] 98 % No Primary Care Physician [facility] 10-08-2022 08:07-0500 Systolic blood pressure 116 mm[Hg] No Primary Care Physician [facility] 04-16-2022 08:07-0400 Body height 180.34 cm No Primary Care Physician [facility] Work Phone: 04-16-2022 08:07-0400 Body mass index (BMI) [Ratio] 21.6 kg/m2 No Primary Care Physician [facility] Work Phone: 04-16-2022 08:07-0400 Body temperature 97.2 [degF] No Primary Care Physician [facility] Work Phone: 04-16-2022 08:07-0400 Body weight 70.36 kg No Primary Care Physician [facility] Work Phone: 04-16-2022 08:07-0400 Diastolic blood pressure 70 mm[Hg] No Primary Care Physician [facility] Work Phone: 04-16-2022 08:07-0400 Heart rate 53 /min No Primary Care Physician [facility] Work Phone: 04-16-2022 08:07-0400 Respiratory rate 16 /min No Primary Care Physician [facility] Work Phone: 04-16-2022 08:07-0400 SaO2% (BldA) [Mass fraction] 99 % No Primary Care Physician [facility] Work Phone: 04-16-2022 08:07-0400 Systolic blood pressure 120 mm[Hg] No Primary Care Physician [facility] Work Phone: Encounters Encounter Date Encounter Type Care Provider Facility Start: 07-06-2025 End: 07-06-2025 ambulatory Yony Phan MD Work Phone: [facility] Start: 07-06-2025 End: 07-06-[address] Kirby Burrows MD -[facility] Work Phone: Start: 07-06-2025 End: 07-06-2025 ambulatory Kaci Ferrera Facility:[facility] Start: 06-18-2025 End: 06-18-2025 ambulatory Yony Phan MD Work Phone: [facility] Start: 06-18-2025 End: 06-18-[address] Kirby Burrows MD -[facility] [place] Work Phone: Start: 06-18-2025 End: 06-18-2025 ambulatory [facility] Facility:[facility] Start: 05-25-2025 End: 05-25-2025 ambulatory Yony Phan MD Work Phone: -[facility] [place] Start: 05-25-2025 End: 05-25-[address] Kirby Burrows MD -[facility] [place] Work Phone: Start: 05-25-2025 End: 05-25-2025 ambulatory [facility] Facility:[facility] Start: 05-10-2025 End: 05-10-2025 ambulatory Yony Phan MD Work Phone: -[facility] [place] Start: 05-10-2025 End: 05-10-[address] Kirby Burrows MD -[facility] [place] Work Phone: Start: 05-10-2025 End: 05-10-2025 ambulatory [facility] Facility:[facility] Start: 04-27-2025 End: 04-27-2025 ambulatory Yony Phan MD Work Phone: [facility] Work Phone: Start: 04-27-2025 End: 04-27-[address] Kirby Burrows MD -[facility] [place] Work Phone: Start: 04-27-2025 End: 04-27-2025 ambulatory [facility] Facility:[facility] Start: 04-23-2025 End: 04-23-2025 ambulatory Dee Glasgow DO Work Phone: Orthopa[facility]ics Start: 04-23-2025 End: 04-23-2025 Follow-up encounter Dee Glasgwo DO Work Phone: [facility] Comment on above: Follow up Start: 04-13-2025 End: 04-13-2025 ambulatory Yony Phan MD Work Phone: [facility] Work Phone: Start: 04-13-2025 End: 04-13-[address] Kirby Burrows MD -[facility] [place] Work Phone: Start: 04-13-2025 End: 04-13-2025 ambulatory Yony Phan Facility:[facility] Start: 03-28-2025 End: 03-28-2025 ambulatory Yony Phan MD Work Phone: [facility] Work Phone: Start: 03-28-2025 End: 03-28-2025 Patient encounter procedure Zuleyma Shaffer NP-C -[facility] [place] Work Phone: Start: 03-28-2025 End: 03-28-2025 ambulatory Zuleyma Shaffer Facility:[facility] Start: 03-23-2025 End: 03-23-2025 Patient encounter procedure Dee Glasgow DO Work Phone: Orthopaedics Comment on above: Glenoid labral tear, right, initial encounter (Primary Dx); Tendinopathy of right rotator cuff Start: 03-23-2025 End: 03-23-2025 ambulatory NACHO FERRERA Facility:[facility] Start: 03-21-2025 End: 03-21-2025 E-mail encounter from caregiver Dee Glasgow MD Work Phone: [facility]opa[facility]ics Start: 03-21-2025 End: 03-21-2025 Patient encounter procedure Dee Glasgow MD Work Phone: [facility]ics Comment on above: Upcoming PRP appoint ment Start: 03-15-2025 End: 03-15-2025 ambulatory Yony Phan MD Work Phone: [facility] Work Phone: Start: 03-15-2025 End: 03-15-[address] Kirby Burrows MD -[facility], [place] Work Phone: Start: 03-15-2025 End: 03-15-2025 ambulatory Yony Emilie Facility:[facility] Start: 02-15-2025 End: 02-15-[address] Kirby Burrows MD -[facility] Work Phone: Start: 02-15-2025 End: 02-15-2025 ambulatory Kirby Burrows Facility:[facility] Start: 01-08-2025 End: 01-08-2025 ambulatory Yony Phan MD Work Phone: [facility] Work Phone: Start: 01-08-2025 End: 01-08-[address] Kirby Burrows MD -Laboratory, [place] Work Phone: Start: 01-08-2025 End: 01-08-2025 ambulatory Kirby Burrows Facility:[facility] Start: 01-03-2025 End: 01-03-2025 ambulatory INNA ZOLTON DO Facility:[facility] Start: 01-03-2025 End: 01-03-2025 Patient encounter procedure INNAADRIANA MONTOYATON DO [facility] Start: 01-01-2025 End: 01-01-2025 Patient encounter procedure Earnestine GONZÁLES -[place] [facility] Start: 01-01-2025 End: 01-01-2025 Patient encounter status Earnestine GONZÁLES [facility] Start: 01-01-2025 End: 01-01-2025 ambulatory Yony Phan Facility:[facility] Start: 12-27-2024 End: 12-27-2024 ambulatory MD BENAVIDES [facility] Start: 12-08-2024 End: 12-08-[address] Kirby Burrows MD -Laboratory, [place] Work Phone: Start: 12-08-2024 End: 12-08-2024 ambulatory Kirby Burrows Facility:[facility] Start: 11-14-2024 End: 11-14-2024 Telemedicine consultation with patient Dee Glasgow DO Work Phone: Orthopaedics Start: 11-14-2024 End: 11-14-2024 ambulatory Dee Glasgow DO Work Phone: Orthopaedics Comment on above: Glenoid labral tear, right, initial encounter (Primary Dx); Tendinopathy of right rotator cuff Start: 11-14-2024 End: 11-14-2024 Postop follow up visit related to original px Jazmyne Robertsmanohar Li CNP Work Phone: [facility] Gynecologic Oncology - [place] Comment on above: Postop check (Primar y Dx) Start: 11-06-2024 End: 11-06-2024 ambulatory PEDRO JIMENEZGetOutfitted [facility] Start: 11-06-2024 End: 11-06-2024 Subsequent hospital visit by physician Pedro Edwards MD Work Phone: [facility] Comment on above: Intra-abdominal and pelvic swelling, mass and lump, unspecified site Start: 11-03-2024 End: 11-03-2024 ambulatory PEDRO ETHELROSANGELA [facility] Start: 10-31-2024 End: 10-31-2024 ambulatory Dee Glasgow DO Work Phone: Orthopaedics Start: 10-31-2024 End: 10-31-2024 Patient encounter procedure Dee Glasgow DO Work Phone: Orthopaedics Comment on above: Virtual appointment Start: 10-30-2024 End: 10-30-2024 ambulatory PEDRO PEÑASomnoMed [facility] Start: 10-30-2024 End: 10-30-2024 Office outpatient new 45 minutes Pedro Edwards MD Work Phone: [facility] Comment on above: Ovarian mass (Primar y Dx); Mature cystic teratoma; Primary female infertility Start: 10-30-2024 End: 10-30-2024 ambulatory NACHO FERRERA Facility:[facility] Start: 10-30-2024 End: 10-30-2024 Subsequent hospital visit by physician [facility] [employer] [facility] (I-Stat/1.5t) Work Phone: Radiology Comment on [...] Radiology XR Start: 10-18-2024 End: 10-18-2024 ambulatory [facility] Facility:[facility] Start: 10-13-2024 End: 10-13-2024 ambulatory INNA VICKERS [facility] Start: 10-03-2024 End: 10-03-2024 Orders Only Daniel Bourgeois MD Work Phone: Referring Physician Comment on above: Pain (Primary Dx) Start: 09-29-2024 End: 09-29-2024 ambulatory INNA BUSTILLOS DO Facility:[facility] Start: 09-29-2024 End: 09-29-2024 Patient encounter procedure INNA BUSTILLOS DO [facility] Start: 09-14-2024 End: 09-14-2024 ambulatory [facility] Facility:[facility] Start: 08-25-2024 End: 08-25-2024 ambulatory [facility] Facility:[facility] Start: 08-17-2024 End: 08-17-2024 ambulatory Milesdaniel Emilie Facility:[facility] Start: 08-16-2024 End: 08-16-2024 [facility] Start: 07-31-2024 End: 07-31-2024 ambulatory Dandy Reich Facility:[facility] Start: 07-28-2024 End: 07-28-2024 ambulatory Yony Phan Facility:[facility] Start: 03-09-2024 End: 03-09-2024 Patient encounter procedure DO Nacho Ferrera Work Phone: [facility] Work Phone: Start: 03-08-2024 End: 03-08-2024 ambulatory DO Nacho Ferrera Work Phone: [facility] Work Phone: Start: 03-08-2024 End: 03-08-2024 Patient encounter procedure DO aNcho Ferrera Work Phone: [facility]-Laboratory, [place] Work Phone: Start: 01-27-2024 End: 02-01-2024 ambulatory NACHO FERRERA DO Facility:[facility] Start: 01-27-2024 End: 01-31-[address] TINO CHRISTIANSON MD [facility] Start: 12-29-2023 End: 12-29-2023 Patient encounter procedure DO Nacho Ferrera Work Phone: [facility] Work Phone: Start: 11-11-2023 End: 11-11-2023 ambulatory DO Nacho Ferrera Work Phone: [facility] Work Phone: Start: 11-11-2023 End: 11-11-2023 Patient encounter procedure DO Nacho Ferrera Work Phone: [facility]-Laboratory, Specimen Work Phone: Start: 11-11-2023 End: 11-11-2023 Patient encounter procedure DO Nacho Ferrera Work Phone: [facility] Start: 10-13-2023 End: 10-13-2023 ambulatory DO Nacho Ferrera Work Phone: [facility] Work Phone: Start: 10-13-2023 End: 10-13-2023 Patient encounter procedure DO Nacho Ferrera Work Phone: [facility]-Laboratory Work Phone: Start: 09-10-2023 End: 09-10-2023 ambulatory DO Nacho Ferrera Work Phone: [facility] Work Phone: Start: 09-10-2023 End: 09-10-2023 Patient encounter procedure DO Nacho Ferrera Work Phone: [facility]-Ultrasound, [facility] Work Phone: Start: 09-09-2023 End: 09-09-2023 Patient encounter procedure DO Nacho Ferrera Work Phone: [facility] Work Phone: Start: 07-13-2023 End: 07-13-2023 ambulatory DO Nacho Ferrera Work Phone: [facility] Work Phone: Start: 07-13-2023 End: 07-13-2023 Patient encounter procedure DO Nacho Ferrera Work Phone: [facility]-Outpatient Bone Densitometry Work Phone: Start: 05-21-2023 End: 05-21-2023 ambulatory Va Beasley MD Work Phone: Endocrinology Comment on above: Graves disease (Prim brennan Dx); Celiac disease Start: 05-21-2023 End: 05-21-2023 Telemedicine consultation with patient Va Beasley MD Work Phone: [facility] Start: 04-08-2023 End: 04-08-2023 ambulatory DO Nacho Ferrera Work Phone: [facility] Work Phone: Start: 04-08-2023 End: 04-08-2023 Patient encounter procedure DO Nacho Nugenter Work Phone: [facility] Start: 03-05-2023 End: 03-05-2023 ambulatory [facility] Work Phone: Start: 03-05-2023 End: 03-05-2023 Patient encounter procedure [facility] Start: 12-22-2022 End: 12-22-2022 ambulatory No Primary Care Physician [facility] Work Phone: Start: 12-22-2022 End: 12-22-2022 Patient encounter procedure No Primary Care Physician [facility] Start: 10-15-2022 End: 10-15-2022 ambulatory No Primary Care Physician [facility] Work Phone: Start: 10-15-2022 End: 10-15-2022 Patient encounter procedure No Primary Care Physician [facility] Start: 10-08-2022 End: 10-08-2022 Patient encounter procedure No Primary Care Physician [facility] Endocr[facility] Start: 09-22-2022 End: 09-22-2022 ambulatory [facility] Work Phone: Start: 09-22-2022 End: 09-22-2022 Patient encounter procedure [facility] Start: 09-02-2022 End: 09-02-2022 ambulatory [facility] Work Phone: Start: 09-02-2022 End: 09-02-2022 Patient encounter procedure [facility] Start: 07-08-2022 End: 07-08-2022 ambulatory No Primary Care Physician [facility] Work Phone: Start: 07-08-2022 End: 07-08-2022 Patient encounter procedure No Primary Care Physician [facility] Start: 04-16-2022 End: 04-16-2022 Patient encounter procedure No Primary Care Physician [facility] Endocrinology Procedures Date Procedure Procedure Detail Performing Clinician Start: 05-16-2025 Njx pltlt plasma w/i mg harvest/preparation Dee Glasgow DO Work Phone: Start: 03-23-2025 Arthrocentesis aspir &/inj major jt/bursa w/us Dee Glasgow DO Work Phone: Start: 11-06-2024 End: 11-06-2024 Ovarian cystectomy uni/bi Pedro Antoine MD Work Phone: Start: 11-06-2024 Urine test visual color cmprsn meths Bety N [place] [employer] Work Phone: Start: 10-30-2024 Mri any jt upper ext remity w/o contrast matrl Dee Glasgow DO Work Phone: Start: 09-10-2023 US scan of thyroid DO Jim mejia Iban Work Phone: Start: 07-13-2023 Dual energy X-ray absorptiometry DO Nacho Barrynger Work Phone: Start: 12-22-2022 MRI of lumbar spine No Primary Care Physician Plan of Treatment Date Care Activity Detail Author Start: 2061 RSV Immunization for Adults (1 - 1-dose 75+ series) RSV Immunization for Adults (1 - 1-dose 75+ series) [facility] Start: 2036 Zoster Vaccines (1 of 2) Zoster Vaccines (1 of 2) [facility] Start: 04-17-2029 DTaP/Tdap/Td Vaccines (7 - Td or Tdap) DTaP/Tdap/Td Vaccines (7 - Td or Tdap) [facility] Start: 04-17-2029 Urine microalbumin profile [facility] Start: 07-09-2025 Influenza vaccination Influenza Vaccine (Season Ended) [facility] Start: 03-23-2025 End: 03-23-2025 Patient encounter procedure 03/23/2025 11:30 AM EDT Office Visit Orthopaedics [address] [place] [address] Dee Glasgow, DO [address] [place] [address] PRP INJECTION - RIGHT SHOULDER Orthopaedics Comment on above: PRP INJECTION - RIGHT SHOULDER Start: 11-14-2024 End: 11-14-2024 Follow-up encounter 11/14/2024 1:30 PM EST [facility] [address] [place] [address] Dee Glasgow, [address] [place] [address] Follow up left shoulder/MRI results Orthopaedics Comment on above: Follow up left shoulder/MRI results Start: 11-14-2024 End: 11-14-2024 Patient encounter procedure 11/14/2024 9:00 AM EST Office Visit [facility] Oncology [facility] [address] [place] [id number] Jazmyne Argueta APRN - [employer] [address] [place] [address] [facility] Gynecologic Oncology [facility] Start: 11-06-2024 End: 11-06-2024 Admission to same day surgery center 11/06/2024 1:30 PM EST - 11/06/2024 2:30 PM EST Surgery [facility] [address] [place] [phone] Pedro Edwards MD [address] [place] [address] LAPAROSCOPIC OVARIAN CYSTECTOMY [87092 (CPT )] [facility] Comment on above: LAPAROSCOPIC OVARIAN CYSTECTOMY [18354 ( CPT )] Start: 11-06-2024 End: 11-06-2024 Anesthesia consultation 11/06/2024 1:30 PM EST Anesthesia Event [facility] [address] [place] [phone] Bety Ayon, [employer] [address] [facility] [address] [place] [address] [facility] Start: 11-06-2024 End: 11-06-2024 Ovarian cystectomy uni/bi OVARIAN CYSTECTOMY Intra-abdominal and pelvic swelling, mass and lump, unspecified site 11/06/2024 1:30 PM EST [facility] Operating [facility] Start: 11-06-2024 Subsequent hospital visit by physician 11/06/2024 1:30 PM EST Hospital Encounter [facility] [address] [place] [phone] Pedro Edwards MD [address] [place] [address] [facility] Start: 10-30-2024 End: 10-30-2024 Patient encounter procedure 10/30/2024 7:30 AM EST Appointment Radiology [address] [place] [address] Right shoulder Radiology Comment on above: Right shoulder Start: 10-19-2024 End: 10-19-2024 Patient encounter procedure Radiology Comment on above: xr shoulder Labral tear Start: 07-09-2024 Covid-19 Vaccine ( season) Covid-19 Vaccine ( season) [facility] Start: 07-09-2024 Influenza vaccination Influenza Vaccine (#1) [facility] Start: 11-11-2023 Liquid based cervical cytology screening [facility] Start: 07-09-2023 Influenza vaccination INFLUENZA (#1) [facility] Start: 05-21-2023 End: 07-21-2023 THYROID STIMULATING IMMUNOGLOBULIN BLOOD THYROID STIMULATING IMMUNOGLOBULIN BLOOD Lab Routine Graves disease Expected: 05/21/2023, Expires: 07/21/2023 [facility] Work Phone: Comment on above: Expected: 05/21/2023, Expires: Start: 05-21-2023 End: 07-21-2023 Thyrotropin [Units/volume] in Serum or Plasma TSH BLD Lab Routine Graves disease Expected: 05/21/2023, Expires: 07/21/2023 [facility] Work Phone: Comment on above: Expected: 05/21/2023, Expires: 3 Start: 05-21-2023 End: 07-21-2023 Thyroxine (T4) free [Mass/volume] in Serum or Plasma T4 FREE/FREE THYROX Lab Routine Graves disease Expected: 05/21/2023, Expires: 07/21/2023 [facility] Work Phone: Comment on above: Expected: 05/21/2023, Expires: 3 Start: 05-21-2023 End: 07-21-2023 Triiodothyronine (T3) Free [Mass/volume] in Serum or Plasma T3 FREE BLD Lab Routine Graves disease Expected: 05/21/2023, Expires: 07/21/2023 [facility] Work Phone: Comment on above: Expected: 05/21/2023, Expires: 3 Start: 11-08-2022 DEPRESSION ASSESSMENT DEPRESSION ASSESSMENT [facility] Start: 09-02-2022 COVID-19 VACCINE (4 - Moderna series) COVID-19 VACCINE (4 - Moderna series) [facility] Start: 01-06-2019 PAP TESTING PAP TESTING [facility] Start: 01-06-2017 Screening for malignant neoplasm of cervix Cervical Cancer Screening [facility] Start: 2016 HPV TESTING HPV TESTING [facility] Start: 2016 Screening for malignant neoplasm of cervix [facility] Start: 2007 Screening for malignant neoplasm of cervix Pap Smear [facility] Start: 2004 Anxiety Screening Anxiety Screening [facility] Start: 2004 Depression Screening Depression Screening [facility] Start: 2004 HEPATITIS C SCREENING HEPATITIS C SCREENING [facility] Start: 2004 Hepatitis C screening Hepatitis C Screening [facility] Start: 2004 HIV SCREENING HIV SCREENING [facility] Start: 2004 HIV screening HIV Screening [facility] Start: 1999 Varicella vaccination Varicella Vaccines (1 of 2 - 13+ 2-dose series) [facility] Start: 1998 Depression Screening Depression Screening [facility] Start: 1986 HEPATITIS B (1 of 3 - 3-dose series) HEPATITIS B (1 of 3 - 3-dose series) [facility] Start: 1986 HIV screening HIV Screening [facility] Start: 1986 Thyroid stimulating hormone measurement TSH Level [facility] End: 11-17-2025 MR Shoulder - right WO contrast MRI SHOULDER WO IVCON RIGHT Radiology Routine Glenoid labral tear, right, initial encounter Tendinopathy of right rotator cuff 1 Occurrences starting 10/18/2024 until 11/17/2025 [facility] Work Phone: Comment on above: 1 Occurrences starting 10/18/2024 until 11/17/2025 Non-Gynecologic Cytology [facility] Work Phone: Comment on above: Release Upon Ordering for 1 Occurrences starting 11/06/2024 Path report.final Dx Spec [facility] T4 free measurement [facility] Thyroid stimulating hormone measurement [facility] Tissue exam [facility] Comment on above: Release Upon Ordering for 1 Occurrences starting 11/06/2024 Triiodothyronine, fr ee measurement [facility] End: 11-02-2025 XR Shoulder - left 3 Views XR SHOULDER GENERAL 3V OR MORE AP/TRUE AP/OTHER LEFT Radiology Routine Pain 1 Occurrences starting 10/03/2024 until 11/02/2025 [facility] Work Phone: Comment on above: 1 Occurrences starting 10/03/2024 until 11/02/2025 End: 11-02-2025 XR Shoulder - right 3 Views XR SHOULDER GENERAL 3V OR MORE AP/TRUE AP/OTHER RIGHT Radiology Routine Pain 1 Occurrences starting 10/03/2024 until 11/02/2025 [facility] Comment on above: 1 Occurrences starting 10/03/2024 until 11/02/2025 [facility] Immunizations Immunization Date Immunization Notes Care Provider [facility]-17-2019 tetanus toxoid, redu shonna diphtheria toxoid, and acellular pertussis vaccine, adsorbed Va Beasley MD Work Phone: [facility] 10-13-2018 influenza virus vacc ine, unspecified formulation Daniel Bourgeois MD Work Phone: [facility] Payers Date Payer Category Payer Commercial Managed C are - [employer] [id number] 2024 Private Health Insurance [id number] 2024 Self-pay [id number] 2023 Unknown [id number] 2022 Unknown [id number]. [id number] 1986 Unknown [id number] 2.16.840.1.115659.3.579.2. 627 1986 Unknown [id number] 2.16.840.1.963566.3.579.2. 627 1986 Unknown [id number] 2.16.840.1.190797.3.579.2. 651 1986 Unknown [id number] 2.16.840.1.670909.3.579.2. 651 1986 Unknown [id number] 2.16.840.1.068247.3.579.2. 479 1986 Unknown [id number] 2.16.840.1.105267.3.579.2. 627 Unknown [facility] [id number] Unknown [employer] [id number] Unknown [facility] PACKAGE PLAN . [id number] Unknown [facility] [id number] Unknown [id number] 2.16.840.1.386547.3.579.2. 462 Unknown [id number] 2.16.840.1.891408.3.579.2. 462 Unknown [id number] 2.16.840.1.305878.3.579.2. 462 Unknown [id number] 2.16.840.1.377578.3.579.2. 462 Unknown [id number] 2.16.840.1.156032.3.579.2. 462 Unknown [id number] 2.16.840.1.205141.3.579.2. 462 Unknown [id number] 2.16.840.1.048676.3.579.2. 462 Unknown [id number] 2.16.840.1.631455.3.579.2. 462 Unknown [id number] 2.16.840.1.214433.3.579.2. 462 Unknown [id number] 2.16.840.1.194697.3.579.2. 462 Unknown [id number] 2.16.840.1.683086.3.579.2. 462 Unknown [id number] 2.16.840.1.242300.3.579.2. 462 Unknown [id number] 2.16.840.1.680852.3.579.2. 462 Unknown [id number] 2.16.840.1.210828.3.579.2. 462 Unknown [id number] 2.16.840.1.628259.3.579.2. 462 Unknown [id number] 2.16.840.1.459484.3.579.2. 462 Unknown [id number] 2.16.840.1.208246.3.579.2. 462 Unknown [id number] 2.16.840.1.240068.3.579.2. 462 Social History Date Type Detail Facility Start: 04-16-2022 End: 12-29-2023 Tobacco smoking status NHIS Unknown if ever smoked [facility] Start: 1985 Sex Assigned At Female [facility] Start: 11-19-2015 End: 01-01-2025 Tobacco smoking status NHIS Never smoked tobacco [facility] Start: 11-19-2015 End: 11-03-2024 Tobacco use and exposure Smokeless tobacco non-user [facility] Start: 08-05-2021 End: 11-06-2024 Alcohol intake Current drinker of alcohol (finding) [facility] Start: 08-05-2021 End: 05-06-2023 History of Social function [facility] Start: 08-05-2021 End: 05-06-2023 Tobacco use panel [facility] Adult Depression Screening Assessment 0 [facility] Start: 1985 Sex Assigned At Not on file [facility] Start: 06-08-2022 End: 01-19-2025 Sex Female (finding) [facility] Sexual Orientation [facility] Clinical Notes 05-21-2023 to 03-23-2025 Dee Glasgow DO - 03/23/2025 2:14 PM EDT Note Date & Type Note Facility 03-23-2025 Note HNO ID: [id number] Author: DEE GLASGOW DO Service: ? Author [...] these instructions. Informed Consent Consent Obtained: Written [place] Protocol A moment to CARE was completed. [...] right rotator cuff Dee Glasgow DO 03/23/2025 [facility] 03-23-2025 History of Present illness Narrative Associated [...] these instructions. Informed Consent Consent Obtained: Written [place] Protocol A moment to CARE was completed. [...] Glasgow DO 03/23/2025 documented in this encounter [facility] 02-15-2025 Evaluation note Diagnosis Onset Date Resolution 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 February 15, 2025 8:29am [facility] Work Phone: 1(648) 246-934802-26-2025 Evaluation + Plan note Diagnostic Tests Pending * Anti-Mullerian Hormone (AMH) 01/03/25 [facility] 02-24-2025 Evaluation note* Diagnosis Onset Date Resolution Status Admit Date Infertility acute December 8:49am Encounter for routine gynecological examination noneactive 2024 8:49am [facility] Work Phone: 1(751) 912-668802-24-2025 Evaluation note* Diagnosis Onset Date Resolution Status Admit Date Infertility acute December 8:49am Encounter for routine gynecological examination noneactive ua 2024 8:49am Thyrotoxicosis due to Graves ' disease chronic February 15, 2025 8:29am [facility] Work Phone: 1(859) 289-343101-07-2025 NoteHNO ID: [id number] Author: DEE GLASGOW DO Service: ? Author Type: Physician Type: Progress Notes Filed: 11/14/2024 13:52 Note Text: [facility] VIRTUAL VISIT DOCUMENTATION NOTE This virtual visit was performed via video enabled technology, and the patient provided consent to be evaluated and managed using this virtual visit and video enabled technology. [facility] Platform: [employer] CHIEF COMPLAINT (CC): Ritika Vega is a [...] compliance with the above plan. Dee Glasgow [facility]01-07-2025 History of Present illness Narrative* Dee Glasgow, DO - 11/14/2024 1:44 PM EST [facility] EM[facility] VIRTUAL VISIT DOCUMENTATION NOTE This virtual visit was performed via video enabled technology, and the patient provided consent to be evaluated and managed using this virtual visit and video enabled technology. [facility] Platform: [employer]oh[employer] CHIEF COMPLAINT (CC): Ritika Vega is a [...] plan. Dee Glasgow DO [facility] History of Present illness Narrative* Jazmyne Argueta, [employer] - 11/14/2024 9:00 AM EST GYNECOLOGIC ONCOLOGY [...] PO Take 240 mg by mouth daily. [place]-3 Fatty Acids (Fish Oil) 1000 MG capsule [...] 124/78, pulse 61, height 1.803 m (5' 11"), weight 72.6 kg (160 lb), last menstrual [...] Follow-up with Dr. Bustillos and with primary nurse obgyn for routine care. I explained diagnosis and treatment plan; patient expressed understanding and was in agreement withthe plan. ONESIMO Lynn CNP documented in this [facility]12-30-2024 Miscellaneous Notes* Post- Procedure Note - Marielle [...] time she moves her head she gets "really nauseated". Upon sitting on the side of bed, [...] 11/06/2024 1:11 PM EST Date: 11/06/2024 Location: [facility] OR Name: Ritika Vega, : 1985, Diagnosis Pre-op Diagnosis * Intra-abdominal and pelvic swelling, mass and lump, unspecified site [R19.00] Post-op Diagnosis * Intra-abdominal and pelvic swelling, mass and lump, unspecified site [R19.00] Procedures LAPAROSCOPIC OVARIAN CYSTECTOMY 47821 - [place] OVARIAN CYSTECTOMY UNI/BI Surgeons * Pedro Edwards [...] 11/06/24 1409 Description: RIGHT OVARIAN CYST Staff: Glove Printer: Angelina Clifton RN; Evelia Beasley RN Scrub [...] indicated for this procedure. documented in this [facility]12-30-2024 Note* Post-Procedure Note - Marielle Hair RN - 11/06/2024 7:10 PM EST Patient feeling better after IM Ephedrine injection. Ambulated and ready to be [id number]* Post-Procedure Note - Marielle Hair RN - 11/06/2024 7:10 PM EST Patient feeling better after IM Ephedrine injection. Ambulated and ready to be discharged [facility] [id number] Note* Post-Procedure Note - Marielle Hair RN [...] time she moves her head she gets "really nauseated". Upon sitting on the side of bed, then upon standing, patient vomited. [facility] [id number] Note* Post-Procedure Note - Marielle Hair RN [...] time she moves her head she gets "really nauseated". Upon sitting on the side of bed, then upon standing, patient vomited. [facility] [id number] Note* Post-Procedure Note - Marielle Hair RN - 11/06/2024 5:47 PM EST Patient states she is feeling better. We will attempt to ambulate to restroom [place] [id number] Note* Post-Procedure Note - Marielle Hair RN - 11/06/2024 5:47 PM EST Patient states she is feeling better. We will attempt to ambulate to restroom [place] [id number] Note* Post-Procedure Note - Marielle Hair RN - 11/06/2024 4:45 PM EST Discharge information given to the patient. Patient and family verbalized understanding of information. All questions were answered at this time. Patient denies dizziness. Vital signs are stable. [place] [id number] Note* Post-Procedure Note - Marielle Hair RN - 11/06/2024 4:45 PM EST Discharge information given to the patient. Patient and family verbalized understanding of information. All questions were answered at this time. Patient denies dizziness. Vital signs are stable. [place] [id number] Note* Perioperative Nursing Note - Michelle Dick RN - 11/06/2024 3:35 PM EST Family/visitor at bedside with patient. [id number] Note* Perioperative Nursing Note - Michelle Dick RN - 11/06/2024 3:35 PM EST Family/visitor at bedside with patient. [facility] [id number] NotePatient: Ritika Vega Procedure Summary Date: 11/06/24 Room / Location: [facility] [address] [place] [address] Operating Room Anesthesia Start: 1311 Anesthesia Stop: 1435 Procedure: LAPAROSCOPIC OVARIAN CYSTECTOMY (Abdomen) Diagnosis: Intra-abdominal [...] discharged once all PACU criteria has been met.[facility]12-30-[facility]24 NotePatient: Ritika Vega Procedure Summary Date: 11/06/24 Room / Location: [facility] [address] [place] [address] Operating Room Anesthesia Start: 1311 Anesthesia Stop: 1435 Procedure: LAPAROSCOPIC OVARIAN CYSTECTOMY (Abdomen) Diagnosis: Intra-abdominal [...] factors for PONV (4556F) Patient received at leaset 2 prophylactic Rx PONV anti-emtic agents of [...] Allowed opportunity for questions and acknowledgement of understanding.[facility] [id number] NoteAirway Date/Time: 11/06/2024 1:21 PM Urgency: scheduled Airway not difficult General Information and Staff Patient location during procedure: Procedural Resident/CHAIR INSPECTOR: Alvin New CRNA Performed: SRNA Indications and [...] (cm): 21 Number of attempts at approach: [address] [place], [place] [address]-30-2024 Note Peripheral Block Time Out: 11/06/2024 1:15 PM Patient location during procedure: Procedural Start time: 11/06/2024 1:15 PM End time: 11/06/2024 1:17 PM Reason for block: at surgeon's request and post-op pain management Staffing Performed: CHAIR INSPECTOR Resident/CHAIR INSPECTOR: Lacie Flanagan APRN - YADIEL Preanesthetic Checklist Completed: patient identified, IV checked, site marked, risks and benefits discussed, surgical consent, monitors and equipment checked, pre-op evaluation and timeout performed Region: [place] Primary: TAP (Bupivacaine 0.375%/ Epi 1:200,000/ Dex 0.1mg/mL 40ml divided evenly bilateral) Secondary: Upper rectus (Bupivacaine 0.375%/ Epi 1:200,000/ Dex 0.1mg/mL 20ml divided evenly bilateral) Peripheral Block Patient position: supine Prep: ChloraPrep Patient monitoring: heart rate, threat monitoring analyst, continuous pulse ox and continuous capnometry O2: [...] plane. and Local anesthetic injected without difficultyMedications pxkYNGZMjnloe-laffffrirsj-uvxxyppeugd (TAP) syringe - Injection 60 mL - 11/06/2024 1:15:[address]30-2024 Note* Brief Op Note - Pedro Edwards MD - 11/06/2024 1:11 PM EST Date: 11/06/2024 Location: [facility] OR Name: Ritika Vega, : 1985, Diagnosis Pre-op Diagnosis * Intra-abdominal and pelvic swelling, mass and lump, unspecified site [R19.00] Post-op Diagnosis * Intra-abdominal and pelvic swelling, mass and lump, unspecified site [R19.00] Procedures LAPAROSCOPIC OVARIAN CYSTECTOMY 56477 - [place] OVARIAN CYSTECTOMY UNI/BI Surgeons * Pedro Edwards [...] 11/06/24 1409 Description: RIGHT OVARIAN CYST Staff: Glove Printer: Angelina Clifton RN; Evelia Beasley RN Scrub [...] antibiotics are not indicated for this procedure. [facility]12-30-2024 Note* Brief Op Note - Pedro Edwards MD - 11/06/2024 1:11 PM EST Date: 11/06/2024 Location: [facility] OR Name: Ritika Vega, : 1985, Diagnosis Pre-op Diagnosis * Intra-abdominal and pelvic swelling, mass and lump, unspecified site [R19.00] Post-op Diagnosis * Intra-abdominal and pelvic swelling, mass and lump, unspecified site [R19.00] Procedures LAPAROSCOPIC OVARIAN CYSTECTOMY 20389 - [place] OVARIAN CYSTECTOMY UNI/BI Surgeons * Pedro Edwards [...] 11/06/24 1409 Description: RIGHT OVARIAN CYST Staff: Glove Printer: Angelina Clifton RN; Evelia Beasley RN Scrub [...] antibiotics are not indicated for this procedure. [facility]12-30-2024 History and physical note* Pedro Edwards MD - 11/06/2024 9:17 AM EST Images from the original note were not included. APIGEE DEVELOPER Pre-Op Note Patient Name: Ritika Vega Patient [...] LASIK (2010); Tonsillectomy; Upper gastrointestinal endoscopy; and [place] tooth extraction. ALLERGIES: Allergies as of 10/30/2024 [...] suite. 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 ALLERGIES: Allergies as of 10/30/2024 [...] operative suite. Pedro Jimenez MD 11/06/2024, 9:[address] [facility]12-30-2024 History and physical note* Pedro Edwards MD - 11/06/2024 9:17 AM EST Images from the original note were not included. APIGEE DEVELOPER Pre-Op Note Patient Name: Ritika Vega Patient [...] LASIK (2010); Tonsillectomy; Upper gastrointestinal endoscopy; and [place] tooth extraction. ALLERGIES: Allergies as of 10/30/2024 [...] MD 11/06/2024, 9:17 AM documented in this [facility]12-25-2024 NotePatient: Ritika Vega Procedure Information Date/Time: 11/06/24 1330 Procedure: OVARIAN CYSTECTOMY (Abdomen) - 60 MINS Location: [address] Operating Room Surgeons: Pedro Edwards MD [...] to ERAS protocol. General eras - celebrex (nurse obgyn) Bety Ayon APRN - OPERATIONS INTELLIGENCE YONATHAN Screening Labs: No results found for: "WBC", "HGB", "HCT", "MCV", "PLT" No results found for: "SODIUM", "NA", "POTASSIUM", "K", "CHLORIDE", "CL", "CO2", "BUN", "CREATININE", "GLUCOSE", "CALCIUM", "PROT", "BILIRUBINFL", "ALKPHOS", "AST", "ALT", "EGFR", "GLOB" No echocardiogram results found for the past 14 days No results found for this or any previous visit. Equipment Requests: Additional Equipment [facility]12-24-2024 NoteSurgeon: Dr Edwards Case# [id number] Procedure: Ovarian cystectomy Sx Date: Tuesday 11/06 Time: 1400 Location: [facility] CPT: 08523 ICD-10: R19.00 Special Equipment: PAT: Saturday 11/03 at 0830- Phone call Submitted auth thru [email or web address] portal, awaiting determination.[facility]12-23-2024 History of Present illness Narrative* Pedro Edwards [...] History: Diagnosis Date Arthritis 2019 Celiac disease 2012 Colon polyp 2023 Disease of thyroid gland [...] Depression Mother Rhianna Vega Hypertension Mother Rhianna Vega Arthritis Father Anjel Vega Hypertension Father Anjel [...] recognition. I apologize for minor errors in tube backer which may be present. documented in this [facility]12-23-2024 History of Present illness Narrative* Margaret Amin RT(R) - 10/30/2024 7:30 AM EST Radiology [...] PATIENT PRESENTS WITH AN IMPLANTABLE OR ATTACHED MORTAR MAN: No RADIOLOGY DEPARTMENT: MR; Exam(s) Completed: Upper MSK: Shoulder, right PERIPHERAL IV DATA: Not applicable SIGNED BY: RT Scotty(Tian) October 30, 2024 7:43 AM [facility]-2024 NoteHNO ID: [id number] Author: MARGARET AMIN RT(R) Service: ? Author Type: Technologist Type: Progress [...] PATIENT PRESENTS WITH AN IMPLANTABLE OR ATTACHED MORTAR MAN: No RADIOLOGY DEPARTMENT: MR; Exam(s) Completed: Upper MSK: Shoulder, right PERIPHERAL IV DATA: Not applicable SIGNED BY: RT Scotty(Tian) October 30, 2024 7:43 [facility]12-16-2024 Telephone encounter Note* Telephone Encounter - Jamila Zuniga MA - 10/23/2024 11:31 AM EST Responded Via My Chart. [facility]12-16-2024 Miscellaneous Notes* Telephone Encounter - Jamila Zuniga MA - 10/23/2024 11:31 AM EST Responded Via My Chart. documented in this [facility]12-11-2024 NoteHNO ID: [id number] Author: DEE GLASGOW DO Service: ? Author [...] results and radiologist's interpretation, available in the [facility] health record. Images were reviewed with the [...] treatment plan as detailed above. Dee Glasgow [facility]12-11-2024 History of Present illness Narrative* Dee Glasgow [...] results and radiologist's interpretation, available in the [facility] health record. Images were reviewed with the [...] above. Dee Glasgow DO documented in this [facility]12-11-2024 NoteHNO ID: [id number] Author: MARGARET BRAMBILA RT(R) Service: ? Author Type: Technologist Type: Progress [...] PATIENT PRESENTS WITH AN IMPLANTABLE OR ATTACHED MORTAR MAN: No RADIOLOGY DEPARTMENT: General X-ray: Exam(s) Completed: Upper Extremity X-Ray(s): Shoulder, AP / TRUE AP / AXILLARY right PERIPHERAL IV DATA: Not applicable SIGNED BY: RT Naye(R) October 18, 2024 9:53 [facility]12-11-2024 History of Present illness Narrative* Margaret Brambila [...] PATIENT PRESENTS WITH AN IMPLANTABLE OR ATTACHED MORTAR MAN: No RADIOLOGY DEPARTMENT: General X-ray: Exam(s) Completed: Upper Extremity X- Ray(s): Shoulder, AP / TRUE AP / AXILLARY right PERIPHERAL IV DATA: Not applicable SIGNED BY: RT Naye(R) October 18, 2024 9:53 AM documented in this encounterCh[facility]11-22-2024 Evaluation + Plan note Diagnostic Tests Pending * Rapid Plasma Reagin Test 09/29/24 * Rubella Antibody 09/29/24 * Varicella Zoster Antibody 09/29/24 * N. gonorrhoeae PCR 09/29/24 * Chlamydia trachomatis PCR 09/29/24 [facility] 03-25-2024 Note The microscopic examination is performed, except in the case of Gross Only. [facility] 03-25-2024 Note The microscopic examination is performed, except in the case of Gross Only. [facility] 03-22-2024 Note The microscopic examination is performed, except in the case of Gross Only. [facility] 03-22-2024 Note The microscopic examination is performed, except in the case of Gross Only. [facility] 03-22-2024 Note The microscopic examination is performed, except in the case of Gross Only. [facility] 03-22-2024 Note The microscopic examination is performed, except in the case of Gross Only. [facility] 03-22-2024 Note The microscopic examination is performed, except in the case of Gross Only. [facility] 07-14-2023 History of Present illness Narrative* Va Beasley MD - 05/21/2023 10:20 AM EDT ENDOCRINOLOGY REFERRAL - THYROID DISORDER Referring Physician: Sandy Dawn, My final recommendations will be communicated back to the referring provider via shared medical record, or USPS FOR VIRTUAL VISITS: I have communicated my name and licensure. The patient's identity and location were verified. Either the patient or their legal rental representative has been informed of the risks, benefits, and alternatives based on a remote evaluation, and consents to proceed remotely per [place] law. CC: Graves disease HPI: Ritika Vega [...] Procedure Laterality Date EGD Upper endoscoscopy: Dr. GriffithPgtx-Pwcgo-Kcubzqe Celiac Disease ELBOW SURGERY HX 2008 left [...] mouth once daily. Norethindrone Acet-Ethinyl Est (JUNEL ,) 1-20 mg-mcg per tablet Take 1 [...] RD, MD, CCD, FACN, FACP, FACE Diplomate, [place] Board [employer] Obesity Medicine Diplomate, National Board of Physician Nutrition Specialists Endocrinology / / [facility] [id number] Any part of this document that has been added/copied & pasted from other documents has been reviewed for accuracy and updated as appropriate at the time of the patient encounter documented in this encounterBluffton Hospitalaluation + Plan note No data available for this section [facility] Evaluation note* Diagnosis Onset Date Resolution Status Thyrotoxicosis due to Graves' disease 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 Pre-conception counseling ac connie Encounter for routine gynecological examination noneactive [facility] Work Phone: Evaluation note* Diagnosis Onset Date Resolution Status Influenza A acute 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 [facility] Work Phone: Evaluation note* Diagnosis Pain- Primary Generalized pain documented in this encounter [facility] note* Diagnosis Glenoid labral tear, right, initial encounter- Primary Tendinopathy of right rotator cuff documented in this encounter [facility] note* Diagnosis Glenoid labral tear, right, initial encounter Tendinopathy of right rotator cuff documented in this encounter [facility] note* Diagnosis Ovarian mass- Primary Unspecified noninflammatory disorder of ovary, fallopian tube, and broad ligament Mature cystic teratoma Benign neoplasm of unspecified site Primary female infertility Female infertility of unspecified origin Intra-abdominal and pelvic swelling, mass and lump, unspecified site documented in this encounter [facility] note* Diagnosis Intra-abdominal and pelvic swelling, mass and lump, unspecified site documented in this encounter [facility] note* Diagnosis Glenoid labral tear, right, initial encounter- Primary Tendinopathy of right rotator cuff documented in this encounter [facility] note* Diagnosis Postop check- Primary Follow-up examination, following unspecified surgery documented in this encounter [facility] note* Diagnosis Glenoid labral tear, right, initial encounter- Primary Tendinopathy of right rotator cuff documented in this encounter [facility] Discharge instructions No data available for this section [facility] Progress note No data available for this section [facility] Reason for referral (narrative)* Diagnostic Procedure Only (Routine) - New Request Specialty Diagnoses / Procedures Referred By Contac t Referred To Contact XR IMAGING Diagnoses Pain Procedures XR SHOULDER GENERAL 3V OR MORE AP/TRUE AP/OTHER RIGHT RADEX SHOULDER COMPLETE MINIMUM 2 VIEWS Daniel Bourgeois MD [address] [place] [address] [place] [address] Referral ID Status Reason Start Date Expiration Date Visits Requested Visits Authorized [id number] New Request Auto-Generat ed Referral 11/02/2025 1 1 * Diagnostic Procedure Only (Routine) - New Request Specialty Diagnoses / Procedures Referred By Contac t Referred To Contact XR IMAGING Diagnoses Pain Procedures XR SHOULDER GENERAL 3V OR MORE AP/TRUE AP/OTHER LEFT RADEX SHOULDER COMPLETE MINIMUM 2 VIEWS Daniel Bourgeois MD [address] [place] [address] [place] [address] Referral ID Status Reason Start Date Expiration Date Visits Requested Visits Authorized [id number] New Request Auto-Generat ed Referral 4 11/02/2025 1 1 [facility] for referral (narrative)No reason for referral information availableWBarberton Citizens [facility] Work Phone: Reason for visit Narrative* Auth/Cert (Routine) Specialty Diagnoses / Procedures Referred By Garry kam Referred To Contact Diagnoses Intra-abdominal and pelvic swelling, mass and lump, unspecified site Intra-abdominal and pelvic swelling, mass and lump, unspecified site [R19.00] Procedures AR OVARIAN CYSTECTOMY UNI/BI LAPAROSCOPIC OVARIAN CYSTECTOMY Pedro Edwards MD [address] [place] [address] Phone: tel: fax: Referral ID Status Reason Start Date Expiration Date Visits Re quested Visits Authorized [id number] 10/30/2024 1 1 [facility] for visit Narrative* Financial Clearance (Routine) - Closed Specialty Diagnoses / Procedures Referred By Garry kam Referred To Contact ORTHOPAEDIC SURGERY Diagnoses Tendinopathy of right rotator cuff Glenoid labral tear, right, initial encounter (S43.431A) Glenoid labral tear, right, initial encounter (M67.911) Tendinopathy of right rotator cuff Procedures NJX PLTLT PLASMA W/IMG HARVEST/PREPARATION PRP WITH US GUIDE - RIGHT SHOULDER Dee Glasgow, DO [address] [place] [address] Phone: tel: fax: Orthopaedics [address] [place] [address] Phone: tel: fax: Referral ID Status Reason Start Date Expiration Date V isits Requested Visits Authorized [id number] Closed Do Not Bill Insurance - SP patient Patient Cleared - True Self-Pay required payment collected 12/06/2024 03/25/2025 1 1 [facility] Summary Purpose Family History No Family History Records Found Relationship Condition Age at Onset Recorded Date/T davian mother Fibromyalgia Unknown Depression Unknown Hypertension Unknown Hyperlipidemia Unknown grandmother Malignant neoplasm of breast Unknown Diabetes mellitus Unknown Cardiac disease Unknown Malignant neoplasm of skin Unknown father Hypertension Unknown grandfather Cerebrovascular accident (CVA) Unknown Advance Directives No Advanced Directives Records Found Date Activated Date Inactivated Comments 11/06/2024 11:55 AM 11/06/2024 9:28 PM Date Activated Date Inactivated Comments 11/06/2024 11:55 AM 11/06/2024 9:28 PM Chief Complaint and Reason for Visit Chief Complaint 6 M FU EORDER Reason for Visit Thyrotoxicosis due t o Graves' disease Chief Complaint EORDER EORDER Chief Complaint EORDER EORDER EORDER Chief Complaint EORDER EORDER 6 M FU EORDERS FOR Reason for Visit Paresthesia Thyrotoxicosis due to Graves' disease Chief Complaint EORDER EORDER 6 M FU EORDERS FOR LUMBAR RAD Reason for Visit Paresthesia Thyrotoxicosis [...] diffuse goiter without thyroto E ORDERS Annual (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) Reason for Visit Thyrotoxicosis due t o Graves' disease Pre-conception counseling Encounter for routine gynecological examination Chief Complaint COUGH, CHILLS,ACHY EORDER 6 M FU Reason for Visit Influenza A Thyrotoxicosis due to Graves' disease Chief Complaint Admit Date EOER October 18, 2024 1:51pm EORDER December 08, 2024 8 :25am Annual (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) January 01, 2025 8:49am EORDER January 08, 2025 8:29 am Reason for Visit Admit Date Infertility January 01, 2025 8:49am Encounter for routine gynecological exam ination January 01, 2025 8:49am Chief Complaint Admit Date EORDER December 08, 2024 8 :25am Annual (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) January 01, 2025 8:49am EORDER January 08, 2025 8:29 am 6 M FU February 15, 2025 8:2 9am E-ORDER March 15, 2025 8:30am Reason for Visit Admit Date Infertility January 01, 2025 8:49am Encounter for routine gynecological exam ination January 01, 2025 8:49am Thyrotoxicosis due to Graves' disease Ap ril 2024 8:29am Chief Complaint Admit Date EORDER December 08, 2024 8 :25am Annual (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) January 01, 2025 8:49am EORDER January 08, 2025 8:29 am 6 M FU February 15, 2025 8:2 9am E-ORDER March 15, 2025 8:30am EORDERS March 28, 2025 8:40a m Chief Complaint Admit Date Annual (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) January 01, 2025 8:49am EORDER January 08, 2025 8:29 am 6 M FU February 15, 2025 8:2 9am E-ORDER March 15, 2025 8:30am EORDERS March 28, 2025 8:40a m EORDERS April 13, 2025 10:08 am Chief Complaint Admit Date 6 M FU February 15, 2025 8:2 9am E-ORDER March 15, 2025 8:30am EORDERS March 28, 2025 8:40a m EORDERS April 13, 2025 10:08 am Reason for Visit Admit Date Thyrotoxicosis due to Graves' disease Ap ril 2024 8:29am Chief Complaint Admit Date E-ORDER March 15, 2025 8:30am EORDERS March 28, 2025 8:40a m EORDERS April 13, 2025 10:08 am EORDERS June 18, 2025 11 :10am Chief Complaint Admit Date E-ORDER March 15, 2025 8:30am EORDERS March 28, 2025 8:40a m EORDERS [place] 6th, 2025 10:08 am EORDERS June 18, 2025 11 :10am EORDERS July 06, 2025 10 :10am Reason for Referral Specialty Diagnoses / Procedures Referred By Garry kam Referred To Contact MR IMAGING Diagnoses Glenoid labral tear, right, initial encounter Tendinopathy of right rotator cuff Procedures MRI SHOULDER WO IVCON RIGHT MRI ANY JT UPPER EXTREMITY W/O CONTRAST Dee Pacheco, DO [address] [place] [address] [place] [address] Referral ID Status Reason Start Date Expiration Date V isits Requested Visits Authorized [id number] Open Auto-Generate d Referral 10/18/2024 11/17/2025 1 1 Additional Source Comments INFORMATION SOURCE (unrecogn ized section and content) DATE CREATED AUTHOR 06/02/2019 [facility] DATE CREATED AUTHOR AUTHOR'S ORGANIZ ATION 09/29/2019 [facility] DATE CREATED AUTHOR AUTHOR'S ORGANIZ ATION 11/15/2020 [employer] DATE CREATED AUTHOR AUTHOR'S ORGANIZ ATION 03/29/2024 [facility] ([place]) DATE CREATED AUTHOR AUTHOR'S ORGANIZ ATION 10/02/2024 [facility] DATE CREATED AUTHOR AUTHOR'S ORGANIZ ATION 10/23/2024 [facility] DATE CREATED AUTHOR AUTHOR'S ORGANIZ ATION 11/20/2024 [facility] DATE CREATED AUTHOR AUTHOR'S ORGANIZ ATION 12/29/2024 [facility] DATE CREATED AUTHOR AUTHOR'S ORGANIZ ATION 01/07/2025 [facility] DATE CREATED AUTHOR AUTHOR'S ORGANIZ ATION 03/24/2025 [facility] DATE CREATED AUTHOR AUTHOR'S ORGANIZ ATION 07/13/2025 [facility] Goals (unrecognized section and content) Goals may [...] Nacho Ferrera DO Primary Care Provider Active ELIECER Fountain Attending Provider, Referring Pr ovider Active Dr. Kirby Burrows MD Other Provider Active Team Status: Inactive Member Role Status Dates Nacho Ferrera DO Primary Care Provider Active Dr. True Prather MD Attending Provider Active Team Status: Inactive Member Role Status Dates Nacho Fererra DO Primary Care Provider, Referring Provider Active Dr. Kirby Burrows MD Attending Provider Active Paint Supervisor Relationship Specialty Start Date End Date Sandy DawnDO PCP - General 11/14/15 Team Status: Inactive Member Role Status Dates Nacho Ferrera DO Primary Care Provider Active BOOGIE TESFAYE Attending Provider, Referring Provider A ctive Team Status: Inactive Member Role Status Dates Nacho Ferrera DO Primary Care Provider Active BOOGIE TESFAYE Attending Provider, Referring Provider A ctive Dr. Kirby Burrows MD Other Provider Active Team Status: Inactive Member Role Status Dates Nacho Morales DO Iban Primary Care Provider, Referring Provider Active Dandy [...] DO Primary Care Provider, Referring Provider Active Kali CONROY PA Attending Provider Active Team Status: Inactive Member Role Status Dates Dr. Kirby Burrows MD Attending Provider, Referring Provi constanza Active Yony Phan MD Primary Care Provider Active Paint Supervisor Relationship Specialty Start Date End Date Nacho Ferrera DO [address] [place] [address] PCP - General Family Medicine 10/03/24 Nacho Ferrera DO [address] [place] [address] Referring Family Medicine 10/03/24 Paint Supervisor Relationship Specialty Start Date End Date Nacho Ferrera DO [address] [place] [address] PCP - General Family Medicine 10/03/24 Nacho Ferrera DO [address] [place] [address] Referring Family Medicine 10/03/24 Paint Supervisor Relationship Specialty Start Date End Date Nacho Ferrera DO [address] [place] [address] PCP - General Family Medicine 10/03/24 Nacho Ferrera DO [address] [place] [address] Referring Family Medicine 10/03/24 Paint Supervisor Relationship Specialty Start Date End Date Nacho Ferrera DO [address] [place] [address] PCP - General Family Medicine 10/03/24 Nacho Ferrera DO [address] [place] [address] Referring Family Medicine 10/03/24 Paint Supervisor Relationship Specialty Start Date End Date Nacho Ferrera DO [address] [place] [address] PCP - General Family Medicine 10/03/24 Nacho Ferrera DO [address] [place] [address] Referring Family Medicine 10/03/24 Paint Supervisor Relationship Specialty Start Date End Date Sandy Dawn DO PCP - General 10/20/17 Karie Ortiz MD [address] [place] [phone] Consulting Physician Gynecologic Oncology 10/26/24 Pedro Edwards MD [address] [place], [place] [phone] Consulting Physician Gynecologic Oncology 10/29/24 Paint Supervisor Relationship Specialty Start Date End Date Karie Ortiz MD [address] [place] [phone] Consulting Physician Gynecologic Oncology 10/26/24 Pedro Edwards MD [address] [place], [place] [phone] Consulting Physician Gynecologic Oncology 10/29/24 Paint Supervisor Relationship Specialty Start Date End Date Nacho Ferrera DO [address] [place] [address] PCP - General Family Medicine 10/03/24 Nacho Ferrera DO [address] [place] [address] Referring Family Medicine 10/03/24 Paint Supervisor Relationship Specialty Start Date End Date Karie Ortiz MD [address] [place] [phone] Consulting Physician Gynecologic Oncology 10/26/24 Pedro Edwards MD [address] [place], [place] [phone] Consulting Physician Gynecologic Oncology 10/29/24 Jazmyne Argueta, [employer] [address] [place], [place] [phone] Nurse Practitioner Nurse Practitioner 11/14/24 Team Status: Inactive Member Role Status Dates Yony Phan MD Primary Care Provider Active St [...] March 15, 2025 End: March 15, 2025 Paint Supervisor Relationship Specialty Start Date End Date Nacho Ferrera DO [address] [place] [address] PCP - General Family Medicine 10/03/24 Nacho Ferrera DO [address] [place] [address] Referring Family Medicine 10/03/24 Team Status: Inactive Member Role Status Dates Yony Phan MD Primary Care Provider Active St art: March 28, 2025 End: March 28, 2025 ELIECER Fountain Attending Provider Active Start: March 28, 2025 End: March 28, 2025 ELIECER Fountain Referring Provider Active Start: March 28, 2025 End: March 28, 2025 Team Status: Inactive Member Role Status Dates Yony Phan MD Primary Care Provider Active St art: April 13, 2025 End: April 13, 2025 Dr. Kirby Burrows MD Attending Provider Active Sta rt: April 13, 2025 End: April 13, 2025 Dr. Kirby Burrows MD Referring Provider Active Sta rt: April 13, 2025 End: April 13, 2025 Paint Supervisor Relationship Specialty Start Date End Date Nacho Ferrera DO [address] [place] [address] PCP - General Family Medicine 10/03/24 Nacho Ferrera DO [address] [place] [address] Referring Family Medicine 10/03/24 Team Status: Active Member Role Status Dates Kaci CHAMBERS DO Primary Care Provider Active Team Status: Inactive Member Role Status Dates Kaci CHAMBERS, DO Primary Care Provider Active Start: April 27, 2025 End: April 27, 2025 Dr. Kirby Burrows MD Attending Provider Active Sta rt: April 27, 2025 End: April 27, 2025 Dr. Kirby Burrows MD Referring Provider Active Sta rt: April 27, 2025 End: April 27, 2025 Team Status: Active Member Role/Relationship Status Dates Kaci CHAMBERS, DO Primary Care Provider Active Team Status: Inactive Member Role/Relationship Status Dates Yony Phan MD Primary Care Provider Active St art: February 15, 2025 End: February 15, 2025 Yony Phan MD Referring Provider Active Start : February 15, 2025 End: February 15, 2025 Dr. Kirby Burrows MD Attending Provider Active Sta rt: February 15, 2025 End: February 15, 2025 Team Status: Inactive Member Role/Relationship Status Perfecto Phan MD Primary Care Provider Active St art: March 15, 2025 End: March 15, 2025 Dr. Kirby Burrows MD Attending Provider Active Sta rt: March 15, 2025 End: March 15, 2025 Dr. Kirby Burrows MD Referring Provider Active Sta rt: March 15, 2025 End: March 15, 2025 Team Status: Inactive Member Role/Relationship Status Perfecto Pahn MD Primary Care Provider Active St art: March 28, 2025 End: March 28, 2025 ELIECER Fountain Attending Provider Active Start: March 28, 2025 End: March 28, 2025 ELIECER Fountain Referring Provider Active Start: March 28, 2025 End: March 28, 2025 Team Status: Inactive Member Role/Relationship Status Perfecto Phan MD Primary Care Provider Active St art: April 13, 2025 End: April 13, 2025 Dr. Kirby Burrows MD Attending Provider Active Sta rt: April 13, 2025 End: April 13, 2025 Dr. Kirby Burrows MD Referring Provider Active Sta rt: April 13, 2025 End: April 13, 2025 Team Status: Inactive Member Role/Relationship Status Dates Kaci CHAMBERS, DO Primary Care Provider Active Start: April 27, 2025 End: April 27, 2025 Dr. Kirby Burrows MD Attending Provider Active Sta rt: April 27, 2025 End: April 27, 2025 Dr. Kirby Burrows MD Referring Provider Active Sta rt: April 27, 2025 End: April 27, 2025 Team Status: Inactive Member Role/Relationship Status Dates Kaci CHAMBERS, DO Primary Care Provider Active Start: May 10, 2025 End: May 10, 2025 Dr. Kirby Burrows MD Attending Provider Active Sta rt: May 10, 2025 End: May 10, 2025 Dr. Kirby Burrows MD Referring Provider Active Sta rt: May 10, 2025 End: May 10, 2025 Team Status: Inactive Member Role/Relationship Status Dates Kaci FITZGERALDC, DO Primary Care Provider Active Start: May 25, 2025 End: May 25, 2025 Dr. Kirby Burrows MD Attending Provider Active Sta rt: May 25, 2025 End: May 25, 2025 Dr. Kirby Burrows MD Referring Provider Active Sta rt: May 25, 2025 End: May 25, 2025 Team Status: Inactive Member Role/Relationship Status Perfecto Phan MD Primary Care Provider Active St art: March 15, 2025 End: March 15, 2025 Dr. Kirby Burrows MD Attending Provider Active Sta rt: March 15, 2025 End: March 15, 2025 Dr. Kirby Burrows MD Referring Provider Active Sta rt: March 15, 2025 End: March 15, 2025 Team Status: Inactive Member Role/Relationship Status Perfecto Phan MD Primary Care Provider Active St art: March 28, 2025 End: March 28, 2025 ELIECER Fountain Attending Provider Active Start: March 28, 2025 End: March 28, 2025 ELIECER Fountain Referring Provider Active Start: March 28, 2025 End: March 28, 2025 Team Status: Inactive Member Role/Relationship Status Perfecto Phan MD Primary Care Provider Active St art: April 13, 2025 End: April 13, 2025 Dr. Kirby Burrows MD Attending Provider Active Sta rt: April 13, 2025 End: April 13, 2025 Dr. Kirby Burrows MD Referring Provider Active Sta rt: April 13, 2025 End: April 13, 2025 Team Status: Inactive Member Role/Relationship Status Perfecto CHAMBERS DO Primary Care Provider Active Start: April 27, 2025 End: April 27, 2025 Dr. Kirby Burrows MD Attending Provider Active Sta rt: April 27, 2025 End: April 27, 2025 Dr. Kirby Burrows MD Referring Provider Active Sta rt: April 27, 2025 End: April 27, 2025 Team Status: Inactive Member Role/Relationship Status Perfecto CHAMBERS DO Primary Care Provider Active Start: May 10, 2025 End: May 10, 2025 Dr. Kirby Burrows MD Attending Provider Active Sta rt: May 10, 2025 End: May 10, 2025 Dr. Kirby Burrows MD Referring Provider Active Sta rt: May 10, 2025 End: May 10, 2025 Team Status: Inactive Member Role/Relationship Status Dates Kaci Ferrera VSC, DO Primary Care Provider Active Start: May 25, 2025 End: May 25, 2025 Dr. Kirby Burrows MD Attending Provider Active Sta rt: May 25, 2025 End: May 25, 2025 Dr. Kirby Burrows MD Referring Provider Active Sta rt: May 25, 2025 End: May 25, 2025 Team Status: Inactive Member Role/Relationship Status Dates Kaci Nugenter AMILCARC, DO Primary Care Provider Active Start: June 18, 2025 End: June 18, 2025 Dr. Kirby Burrows MD Attending Provider Active Sta rt: June 18, 2025 End: June 18, 2025 Dr. Kirby Burrows MD Referring Provider Active Sta rt: June 18, 2025 End: June 18, 2025 Team Status: Inactive Member Role/Relationship Status Dates Kaci FITZGERALDC, DO Primary Care Provider Active Start: July 06, 2025 End: July 06, 2025 Dr. Kirby Burrows MD Attending Provider Active Sta rt: July 06, 2025 End: July 06, 2025 Dr. Kirby Burrows MD Referring Provider Active Sta rt: July 06, 2025 End: July 06, 2025 Source Comments (unrecognize d section and content) In the event this informatio n is protected by the Federal Confidentiality of Alcohol and Drug Abuse Patient Records regulations: The Federal rules restrict any use of the information to criminally investigate or prosecute any alcohol or drug abuse patient.[facility] the event this information is protected by the Federal Confidentiality of Alcohol and Drug Abuse Patient Records regulations: The Federal rules restrict any use of the information to criminally investigate or prosecute any alcohol or drug abuse patient.[facility] the event this information is protected by the Federal Confidentiality of Alcohol and Drug Abuse Patient Records regulations: The Federal rules restrict any use of the information to criminally investigate or prosecute any alcohol or drug abuse patient.[facility] the event this information is protected by the Federal Confidentiality of Alcohol and Drug Abuse Patient Records regulations: The Federal rules restrict any use of the information to criminally investigate or prosecute any alcohol or drug abuse patient.[facility] the event this information is protected by the Federal Confidentiality of Alcohol and Drug Abuse Patient Records regulations: The Federal rules restrict any use of the information to criminally investigate or prosecute any alcohol or drug abuse patient.[facility] the event this information is protected by the Federal Confidentiality of Alcohol and Drug Abuse Patient Records regulations: The Federal rules restrict any use of the information to criminally investigate or prosecute any alcohol or drug abuse patient.[facility] the event this information is protected by the Federal Confidentiality of Alcohol and Drug Abuse Patient Records regulations: The Federal rules restrict any use of the information to criminally investigate or prosecute any alcohol or drug abuse patient.[facility] the event this information is protected by the Federal Confidentiality of Alcohol and Drug Abuse Patient Records regulations: The Federal rules restrict any use of the information to criminally investigate or prosecute any alcohol or drug abuse patient.[facility] the event this information is protected by the Federal Confidentiality of Alcohol and Drug Abuse Patient Records regulations: The Federal rules restrict any use of the information to criminally investigate or prosecute any alcohol or drug abuse patient.[facility] the event this information is protected by the Federal Confidentiality of Alcohol and Drug Abuse Patient Records regulations: The Federal rules restrict any use of the information to criminally investigate or prosecute any alcohol or drug abuse patient.[facility] the event this information is protected by the Federal Confidentiality of Alcohol and Drug Abuse Patient Records regulations: The Federal rules restrict any use of the information to criminally investigate or prosecute any alcohol or drug abuse patient.[facility] Reason for Visit (unrecogniz ed section and content) Reason Comments Graves Disease Specialty Diagnoses / Procedures Referred By Contac t Referred To Contact Endocrinology / ENDOCRINOLOGY Diagnoses Graves disease Graves Disease Procedures PHYS/QHP TELEPHONE EVALUATION 5-10 MIN [place] [address] [place] [id number] Referral ID Status Reason Start Date Expiration Date V isits Requested Visits Authorized [id number] Denied Clearance Not Met - Admin/Chairm an/Director [...] MRI ANY JT UPPER EXTREMITY W/O CONTRAST Dee Pacheco, DO [address] [place] [address] [place] [address] Referral ID Status Reason Start Date Expiration Date V isits Requested Visits Authorized [id number] Closed Auto-Generat ed Referral Clearance Not Met - Admin/Chairm an/Director Advise to Postpone/Res chedule or Not Proceed 10/25/2024 12/26/2024 1 1 Reason Comments Other Pelvic mass Specialty Diagnoses / Procedures Referred By Garry kam Referred To Contact Gynecologic Oncology Diagnoses Right adnexal mass Procedures AR OFFICE/OUTPATIENT NEW HIGH MDM 60 MINUTES Inna Bustillos, DO [address] [place] [address] Phone: tel: fax: [facility] Gynecologic Oncology - [place] [address] [place] [address] Phone: tel: fax: Referral ID Status Reason Start Date Expiration Date Visits Re quested Visits Authorized [id number] Closed 10/26/2024 10/26/2025 1 1 Reason Comments [...] BE BASED ON THE PRIMARY CLINICAL RECORDS. [facility]. provides no warranty or guarantee of the accuracy or completeness of information in this document.
[2025-08-03 13:13] LABS: Free T3 2.9 pg/mL (2.18-3.98)
== END | disposition home or self-care (01) ==
LOC: MTLAB 09:40
PROVIDERS: PCP Family Medicine; Referring Provider Internal Medicine Endocrinology, Diabetes & Metabolism; Visit Provider Internal Medicine Endocrinology, Diabetes & Metabolism
DX: E05.00 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xic crisis or storm (principal)
CPT/HCPCS: 36415; 84439; 84443; 84481

== ENCOUNTER 2025-08-12 16:05 | Emergency (ER) | payer OTHER, SELFPAY ==
[2025-08-12 16:05] VITALS: BP 145/79; PULSE 60; RESP 20; TEMP 36.4; O2SAT 100; BMI 22.9
--- NOTE | 2025-08-12 16:07 | EKG12_ITS ---
Test Reason : Blood Pressure : */* mmHG Vent. Rate : 56 BPM Atrial Rate : 56 BPM P-R Int : 154 ms QRS Dur : 90 ms QT Int : 432 ms P-R-T Axes : 22 60 7 degrees QTcB Int : 416 ms Sinus bradycardia T wave abnormality, consider anterior ischemia Abnormal ECG Confirmed by PATY LEAL MD ([id number]), art editor CLINTON VERMA ([id number]) on 08/13/2025 8:37:23 AM Referred By: Confirmed By: PATY LEAL MD
[2025-08-12 16:41] LABS: Hematocrit 36.3 % (37-47); Hemoglobin 12.5 g/dL (12.0-15.0); Immature Granulocytes Count 0.010 X10^3/uL (0.0-0.0); Mean Corp Hgb Conc 34.4 g/dL (32-36); Mean Corpuscular Volume 95.3 fL (81-99); Mean Platelet Vol. 9.5 fl (6.2-12.0); NRBC Flagged by Analyzer 0 % (0-5); Platelet Count 247 K/mm3 (150-450); RBC Distribution Width CV 12.0 % (11.6-14.6); RBC Distribution Width SD 42.1 fl (35.1-43.9); Red Blood Count 3.81 M/mm3 (4.2-5.4); White Blood Count 5.9 K/mm3 (4.4-11.0)
--- NOTE | 2025-08-12 16:50 | ED.VIS.CHEST ---
HPI History of Present Illness Chief Complaint: Chest Pain Narrative Narrative: Chief complaint and HPI: 39-year-old female with past medical history of Graves' disease presents for evaluation of sternal chest pain. Patient states for the past several days she has been having sternal chest pain. Describes it as tight. States it was originally only present when lying down however today became constant. Associated symptom is mild shortness of breath. She states she has a family history of heart disease. Non-smoker. She is on control as she is involved in infertility treatment. Denies a history of DVT/PE, blood clotting disorder, recent trauma or surgery, unilateral leg swelling, travel. She denies any fever, chills, abdominal pain, nausea, vomiting. States it does not feel like acid reflux. Has not taken anything for the pain. Review of systems: See HPI Medications: As listed on the chart Allergies: As listed on the chart PFSH: Per chart Vital signs: As listed on the chart. Reviewed. Physical exam: Gen: A&O x3, NAD Head: Normocephalic, atraumatic Eyes: No sclera icterus, conjunctiva clear ENT: Moist mucous membranes Neck: Trachea midline CV: RRR, no murmurs, no peripheral edema, chest pain nonreproducible on physical exam Resp: Lungs CTA BL, no w/r/c GI: Abd soft, non-distended, non-tender, no r/r/g Musc: Full ROM, no deformity Skin: Warm, dry Neuro: Alert, oriented, grossly intact, sensation intact Psych: Cooperative, appropriate mood and affect [facility] Medical History Paresthesia Graves disease Celiac disease Heart murmur GI problem Anemia Seasonal allergies Home Medications ?Medication ?Instructions ?Recorded ?Last Taken ?Type omega-3 fatty acids 1,000 mg 1,000 mg PO DAILY 12/12/19 Unknown History capsule (Fish Oil Concentrate) coenzyme Q10 10 mg capsule (Co 10 mg PO ONCE 07/28/24 Unknown History Q-10) vits 75-iron 28 mg-folic pkg PO 07/28/24 Unknown History acid 800 mcg-omega-3 oral combo pack (One A Day Women's DHA) desogestrel 0.15 mg-ethinyl 1 tab PO QDAY 02/15/25 Unknown History estradiol 0.03 mg tablet (Apri) propylthiouracil 50 mg tablet See Rx Instructions PO TID #204 08/06/25 Unknown Rx tabs Allergy/AdvReac Type Severity Reaction Status Date / Time No Known Allergies Allergy Verified 08/12/25 16:05 Family History Mother Fibromyalgia Depression Hypertension Hyperlipidemia Grandmother Breast cancer Diabetes Heart disease Skin cancer Father Hypertension Grandfather CVA (cerebral vascular accident) Surgical History Hx of LASIK H/O elbow surgery H/O left knee surgery Social History adopted: No household members: spouse housing: house current occupational status: employed 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 current occupational exposures/hazards: No pets and animals: Yes sexually active: Yes Smoking Status: Never smoker second hand exposure: No alcohol intake: current alcohol intake frequency: holidays/special occasions only substance use type: does not use diet: gluten free well-balanced diet: daily or most days caffeine: Yes Type: coffee Number of servings: 1 eating out: rarely or never during the past year weight has: remained stable what type of physical activity do you participate in: other frequency: 3-4 times per week dina/mandaen: Sabianism seatbelt use: always do you feel safe at home: Yes 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 EXAM Physical Exam Const Vital Signs: 08/12/25 16:05 08/12/25 17:05 08/12/25 17:10 Temperature 97.6 F L Temperature Source Temporal Pulse Rate 60 57 L Respiratory Rate 20 H 14 Respiratory Effort Normal Non-Labored Blood Pressure 145/79 H 124/83 H Blood Pressure Mean 101 96 Pulse Ox 100 100 Oxygen Delivery Method Room Air Room Air 08/12/25 17:10 08/12/25 18:00 08/12/25 19:00 Temperature Temperature Source Pulse Rate 55 L 56 L Respiratory Rate 18 16 Respiratory Effort Blood Pressure 114/77 119/78 Blood Pressure Mean 89 91 Pulse Ox 100 92 Oxygen Delivery Method Room Air Room Air Room Air MDM MDM MDM Narrative Medical decision making narrative: 39-year-old female with past medical history of Graves' disease presents for evaluation of sternal chest pain. Patient states for the past several days she has been having sternal chest pain. Describes it as tight. States it was originally only present when lying down however today became constant. Associated symptom is mild shortness of breath. Differential diagnosis includes but is not limited to myofascial spasm, costochondritis, ACS, PE, electrolyte abnormality. Aspirin ordered. Cardiac workup ordered. EKG and chest x-ray reviewed see below. CBC without leukocytosis or anemia. Platelets unremarkable. Coagulation panel unremarkable. D-dimer unremarkable. BMP unremarkable. Troponin x 2 unremarkable. BNP unremarkable. Serum negative. On reevaluation, patient's chest pain has improved. States is resolved. At this point in time no clear etiology for her chest pain although it is atypical. Her heart score is a 1 which places her in low Risk category for ACS. However given her family history and her nonspecific ST changes I did speak with cardiology. They agree that patient's chest pain is atypical and these changes are nonspecific. Recommend discharge home and follow-up in their office. Patient confirmed understand the plan. Return precautions explained. Patient stable to discharge home. EKG: Interpreted by me/EM physician: EKG shows sinus bradycardia with a heart rate of 56. T wave inversions in V2, V3, V4. I do not have a previous EKG to compare to. No ST depressions or elevation. Diagnostic: Interpreted by me/EM physician: Chest x-ray without pneumonia, effusion, cardiomegaly, pneumothorax. Radiology in agreement Impression: 1. Chest pain Lab Data Labs: Laboratory Results - last 24 hr 08/12/25 08/12/25 08/12/25 16:33 16:49 17:00 WBC 5.9 RBC 3.81 L Hgb 12.5 Hct 36.3 L MCV 95.3 MCH 32.8 H MCHC 34.4 RDW Std Deviation 42.1 RDW Coeff of Zelda 12.0 Plt Count 247 MPV 9.5 Immature Gran % (Auto) 0.200 Neut % (Auto) 50.2 Lymph % (Auto) 41.7 H [place] % (Auto) 4.6 Eos % (Auto) 2.6 Baso % (Auto) 0.7 Absolute Neuts (auto) 2.9 Absolute Lymphs (auto) 2.44 Nucleated RBC % 0 PT 13.7 INR 1.0 APTT 26.7 D-Dimer Quant (PE/DVT) 0.27 Sodium 139 Potassium 4.3 Chloride 105 Carbon Dioxide 23.3 Anion Gap 11 BUN 17 Creatinine 1.05 Estim Creat Clear Calc 81.20 Est GFR (MDRD) Non-Af 70 BUN/Creatinine Ratio 16.0 Glucose 107 H Calcium 8.9 Troponin T High Sens < 6 Troponin T Hi Sens 2 Hr NT pro BNP II < 36 Serum , Qual NEGATIVE 08/12/25 18:28 WBC RBC Hgb Hct MCV MCH MCHC RDW Std Deviation RDW Coeff of Zelda Plt Count MPV Immature Gran % (Auto) Neut % (Auto) Lymph % (Auto) [place] % (Auto) Eos % (Auto) Baso % (Auto) Absolute Neuts (auto) Absolute Lymphs (auto) Nucleated RBC % PT INR APTT D-Dimer Quant (PE/DVT) Sodium Potassium Chloride Carbon Dioxide Anion Gap BUN Creatinine Estim Creat Clear Calc Est GFR (MDRD) Non-Af BUN/Creatinine Ratio Glucose Calcium Troponin T High Sens Troponin T Hi Sens 2 Hr < 6 NT pro BNP II Serum , Qual Radiography Diagnostic Testing: Clinical Impression(s) from Imaging Studies Chest X-Ray 08/12/25 17:00 IMPRESSION: No focal consolidations. Reading Location: [facility] Discharge Plan Triage Chief Complaint: Chest Pain ED Provider: Zachary Ceron Dx/Rx/DC Orders Clinical Impression: Chest pain Instructions: ED Chest Pain [facility] Prescriptions: No Action omega-3 fatty acids [Fish Oil Concentrate] 1,000 mg capsule 1,000 mg PO DAILY coenzyme Q10 [Co Q-10] 10 mg capsule 10 mg PO ONCE One A Day Women's DHA 28 mg iron- 800 mcg combo pack PO desogestrel-ethinyl estradiol [Apri] 0.15-0.03 mg tablet 1 tab PO QDAY propylthiouracil 50 mg tablet See Rx Instructions PO TID Qty: 204 1RF Rx Instructions: 100 mg am, 50 mg pm orally three times a day; Primary Care Provider: Kaci Ferrera Referrals: Haresh Nuñez MD [Med Staff - Active Staff, Cardiology] - 3-5 Days Iban,Kaci VSC, DO [Primary Care Provider, Family Practice] - 3-5 Days Activity Restrictions/Additional Instructions: Follow-up with primary care physician and cardiology. Return back to ED if symptoms change or worsen. Print Language: Zambian Disposition Disposition: Home, Self Care
--- OUTSIDE RECORDS SUMMARY | 2025-08-12 16:55 | XMS RPT_ITS | CCD ---
Author Organization [facility] CliniSyvt Care Team Providers Care Director Of Mechanical Engineering Name Role Phone Care Physician, No Primary Primary Care Provider Unavailable Care Physician, No Primary Referring Provider Un available Dr. Kirby Burrows Attending Provider [phone] Care Physician, No Primary Referring Provider Un available Dr. Kirby Burrows Attending Provider DO Nacho Ferrera M Primary Care Provider [phone] DO Nacho Ferrera M Primary Care Provider [phone] DO Nacho Ferrera M Referring Provider Dr. Kirby Burrows Attending Provider Sandy Dawn DO Primary Care Provider DO Nacho Ferrera M Primary Care Provider DO Nacho Ferrera M Referring Provider Dr. Kirby Burrows Attending Provider ADEBAYO Reich Attending Provider NACHO FERRERA DO Primary Care Physician DO Nacho Ferrera M Primary Care Provider [phone] DO Nacho Ferrera M Referring Provider MARYCARMEN Orta Attending Provider Dr. Kirby Burrows Attending Provider [phone] MD Yony Phan Primary Care Provider NACHO [...] Unavailable Grace LYLES, Pedro Delacruz Unavailable Chris MUSHROOM PRESS OPERATOR - JOB LITHOGRAPHERJazmyne Unavailable PDERO EDWARDS Attending Unavailable ZOLTON, INNA Referring Unavailable [...] e DEE GLASGOW Attending Unavailable NACHO FERRERA PRICILA Primary Care Unavailabl e DEE GLASGOW Referring Unavailable Edmund MACHINE STRIPER-C, Zuleyma Attending Provider [phone] Edmund MACHINE STRIPER-C, Zuleyma Referring Provider [phone] Emilie LYLES, [facility] Primary Care Provider [phone] King RAFAL, Dr. Orr Attending Provider [phone] King RAFAL, Dr. Orr Referring Provider Iban , Kaci Primary Care Provider Emilie LYLES, [facility] Primary Care Provider [facility]erring Provider [phone] King RAFAL, Dr. Orr Attending Provider King RAFAL, Dr. Orr Referring Provider Emilie LYLES, [facility] Primary Care Provider King RAFAL, Dr. Orr Attending Provider Zuleyma Shaffer Referring Unavailable Edmund, Zuleyma Attending Unavailable Emilie, Chalon Primary Care Unavailable Emilie, Chalon Primary Care Unavailable Emilie, Chalon Referring Unavailable Markos, Kirby Attending Unavailable Emilie, Chalon Primary Care Unavailable Emilie, Chalon Referring Unavailable Markos, Kirby Attending Unavailable Emilie, Chalon Referring Unavailable Emilie, Chalon Primary Care Unavailable Earnestine Hernandez Attending Unavailable Markos, Kirby Attending Unavailable Emilie, Chalon Primary Care Unavailable Markos, Kirby Referring Unavailable Markos, Kirby Attending Unavailable Emilie, Chalon Primary Care Unavailable Markos, Kirby Referring Unavailable Emilie, Chalon Primary Care Unavailable Markos, Kirby Referring Unavailable Markos, Kirby Attending Unavailable Emilie, Chalon Primary Care Unavailable Markos, Kirby Referring Unavailable Markos, Kirby Attending Unavailable Markos, Kirby Referring Unavailable Emilie, Chalon Primary Care Unavailable Markos, Kirby Attending Unavailable Markos, Kirby Referring Unavailable Iban VSC, Kaci Primary Care Unavailable Markos, Kirby Attending Unavailable Markos, Kirby Referring Unavailable Markos, Kirby Attending Unavailable Iban VSC, Kaci Primary Care Unavailable Iban VSC, Kaci Primary Care Unavailable Markos, Kirby Referring Unavailable Markos, Kirby Attending Unavailable Iban VSC, Kaci Primary Care Unavailable Markos, Kirby Referring Unavailable Markos, Kirby Attending Unavailable Markos, Kirby Attending Unavailable [facility] Unavailable Markos, Kirby Referring Unavailable Emilie, [facility] Unavailable Markos, Kirby Attending Unavailable Markos, Kirby Referring Unavailable Markos, Kirby Referring Unavailable Markos, Kirby Attending Unavailable [facility] Unavailable Markos, Kirby Referring Unavailable Markos, Kirby Attending Unavailable [facility], [facility] Unavailable Yony Phan MD Primary Care Physician Dr. Kirby Burrows MD Attending Physician Dr. Kirby Burrows MD Referring Provider [phone] Kaci Ferrera DO Primary Care Physician Allergies Allergy Classification Reported Allergen(s) Allergy Type Date of Onset Reaction(s) Facility (4 sources) Gluten Propensity to adverse reactions 11-03-2024 [facility] Medications Current Medications Medication Drug Class(es) Dates [...] in the nose once daily. Desogestrel-Ethinyl Estradiol (9 sources) Progestin, Estrogen Start: 02-15-2025 take 0.15 tablet by mouth once daily Start: 02-15-2025 take 0.15 tablet by mouth once daily Desogestrel-Ethinyl Estradiol (Apri) 0.15-0.03 mg tablet Active 1 {tbl} PO daily February 15, 2025 12:00am docusate sodium 100 mg oral capsule (3 sources) Start: 11-06-2024 End: 11-16-2024 take 1 capsule by mouth twice daily [...] tablet (6 sources) Nonsteroidal Anti-inflammatory Drug Start: 11-06-2024 End: 11-16-2024 take 1 tablet by mouth every six [...] Take 240 mg by mouth daily. Active Holden-3 Fatty Acids (Fish Oil Concentrate) 1,000 mg capsule (20 sources) Start: 12-12-2019 take 1 capsule by mouth once daily Start: 12-12-2019 take 1 capsule by mo uth once daily Holden-3 Fatty Acids (Fish Oil Concentrate) 1,000 mg capsule Active 1000 mg PO DAILY December 12, 2019 1:00am Start: 12-12-2019 take 1 capsule by [facility] once daily Holden-3 Fatty Acids (Fish Oil Concentrate) 1,000 mg capsule Active 1000 MG PO DAILY December 12, 2019 12:00am Start: 12-12-2019 take 1 capsule by [facility] once daily Holden-3 Fatty Acids (Fish Oil Concentrate) 1,000 mg capsule Active 1000 MG PO DAILY December 12, 2019 1:00am Holden-3 Fatty Acids (Fish Oi l) 1000 MG capsule delayed-release (3 sources) Holden-3 Fatty Ac ids (Fish Oil) 1000 MG [...] Comment on above: Take 1,200 mg by [facility] once daily. oxyCODONE hydrochloride 5 mg oral tablet (2 sources) Opioid Agonist Start: 11-06-2024 End: 11-11-2024 take 1 tablet by mouth every six hours as needed for pain oxyCODONE (Roxicodone) 5 MG immediate release tablet Take 1 tablet (5 mg) by mouth every 6 hours as needed for severe pain (7-10) for up to 5 days. 12 tablet 11/06/2024 4:17 PM EST 11/06/2024 11/11/2024 Active Qvugbl25-Uxwj Fum-Folic Ac-Om3 (One A Day Women's Dha) 28 mg iron- 800 mcg combo pack (8 sources) Start: 07-28-2024 Ozmmlt91-Adxz Fum-Folic Ac-Om3 (One A Day Women's Dha) 28 mg iron- 800 mcg combo pack Active NMA PO July 28, 2024 12:00am 75-Iron Frm-Zeuxl-Ov6 (One A Day Women's Dha) 28 mg iron- 800 mcg combo pack (2 sources) Start: 07-28-2024 Start: 07-28-2024 75-Ir on Mgu-Toiin-Xn0 (One A Day Women's Dha) 28 mg iron- 800 mcg combo pack Active NMA PO July 28, 2024 12:00am Vit-Fe Fumarate-FA ( PO) (3 sources) Vit-Fe Fumarate-FA ( PO) Take by mouth. Active Probiotic Product (PROBIOTIC PO) (3 sources) Probiotic Produc t (PROBIOTIC PO) Take by mouth. Active propylthiouracil 50 mg oral tablet (20 sources) Thyroid Hormone Synthesis Inhibitor Start: 08-06-20 take 2 tablets by mouth three times daily in the morning, then take 1 tablet by mouth three times daily in the evening Start: 04-27-2025 End: 08-06-2025 take 1 tablet by mouth three times daily Propylthiouracil 50 mg tablet Discontinued 100 mg PO THREE TIMES A DAY 204 May 10, 2025 2:16pm August 06, 2025 8:49am Start: 03-28-2025 End: 04-27-2025 take 2 tablets [...] mg tablet Discontinued 0 PO daily 90 1 January 08, 2025 2:27pm March 28, 2025 [...] once daily. ubidecarenone 10 mg oral capsule (10 sources) Start: 07-28-2024 vitamin b12 1 mg oral tablet (11 sources) Vitamin B12 take 1 tablet by mouth once daily cyanocobalamin (VITAMIN B-12) 1,000 mcg tab Take 1,000 mcg by mouth once daily. Active Comment on above: Take 1,000 mcg by [facility] once daily. Completed/Discontinued Medications Medication Drug Class(es) [...] mg / clavulanate 125 mg oral tablet (10 sources) Penicillin-class Antibacterial Start: 04-19-2024 End: 07-28-2024 [...] on above: Take 1 tablet by catherine once daily. 2 ml fentaNYL 0.05 mg/ml [...] tablet Discontinued 15 mg PO DAILY 135 February 08, 2023 7:39am March 05, 2023 9:29pm Start: 02-08-2023 End: 03-05-2023 take 15 mg by mouth once daily Methimazole Discontinue d 15 MG PO DAILY 135 February 08, 2023 7:39am March 05, 2023 9:29pm Start: 08-16-2020 End: 10-21-2020 Methimazole 10 mg tablet Discontinued 0 PO DAILY 30 October 10, 2020 2:11pm October 21, 2020 9:23am 10mg 6 days a week and 5 mg 1 days per week. Start: 12-14-2019 End: 08-16-2020 Methimazole 10 mg tablet Discontinued 0 PO DAILY 30 December 14, 2019 4:17pm August 16, 2020 [...] on above: Take 1 tablet by catherine once daily. 2 ml ondansetron 2 mg/ml injection (13 sources) Serotonin-3 Receptor Antagonist Start: 11-06-2024 End: [...] 2024 8:38am oseltamivir 75 mg oral capsule (11 sources) Neuraminidase Inhibitor Start: 12-29-2023 End: 01-03-2024 [...] Da te Episodic/Chronic Contraceptive and procreative management (13 sources) Patient encounter status; Translations: [Encounter for other general counseling and advice on procreation] 11-11-2023 Episodic Comment on above: to discuss with endo changing medications for hyperthyroidism-start on PNV-reviewed natural cycles and ways to optimize fertility. Female infertility (13 sources) Primary female infertility; Translations: [Female infertility, unspecified] Onset: 10-30-2024 10-29-2024 Chronic Influenza (12 sources) Influenza due to Influenza A virus; Translations: [Influenza due to other identified influenza virus with other respiratory manifestations] 12-29-2023 Episodic Osteoarthritis (20 sources) Arthritis of left elbow; [...] Onset: 11-06-2024 Episodic Other lower respiratory disease (11 sources) Cough; Translations: [Cough] 12-29-2023 Episodic Other nervous system disorders (19 sources) Paresthesia; Translations: [Paresthesia of skin] 10-08-2022 Episodic Other nervous system disorders (2 sources) Paresthesia of skin; Translations: [Disturbance of skin sensation] Episodic Other non-traumatic joint disorders (11 sources) Loose body in left elbow joint; Translations: [Loose body in left elbow] Onset: 08-05-2021 08-05-2021 Chronic Other upper respiratory disease (11 sources) Respiratory tract congestion; Translations: [Other specified diseases of upper respiratory tract] 12-29-2023 Episodic Otitis media and related conditions (10 sources) Acute right otitis media; Translations: [Otitis media, unspecified, right ear] 04-19-2024 Episodic Residual codes; unclassified (11 sources) Generalized aches and pains; Translations: [Pain, unspecified] 12-29-2023 Episodic Residual codes; unclassified (1 source) Pain; Translations: [Pain, unspecified] 10-03-2024 Episodic Residual codes; unclassified (15 sources) Infertile 01-01-2025 Episodic Comment on above: [...] Value Interpretation Reference Range Facility Free T3on 08-03-2025 Free T3 [Mass/Vol] 2.9 pg/mL Normal 2.18-3.98 [facility] Comment on above: Performed By: #### L 500.4050, L501.90860, L501.9520, L506.0400 #### [facility] [address] [place], [address] Free R2Dadwasb By: Kirby Burrows on 08-03-2025 Free T3 [Mass/Vol] 2.9 pg/mL 2.18-3.98 [facility] T4 Free Directon 08-03-2025 T4 FREE DIRECT 0.70 ng/dL Low 0.76-1.46 [facility] Comment on above: Performed By: #### L 500.4050, L501.36907, L501.9520, L506.0400 #### [facility] [address] [place], [address] T4 freeOrdered By: Kirby Burrows on 08-03-2025 Free T4 [Mass/Vol] 0.70 ng/dL Low 0.76-1.46 [facility] TSH DL <= 0.005 mIU/L QnOrde red By: Kiryb Burrows on 08-03-2025 TSH Qn 2.600 uIU/mL 0.300-4.200 [facility] Thyroid Stim Hormone (TSH)on 08-03-2025 TSH 2.600 uIU/mL Normal 0.300-4.200 [facility] Comment on above: Performed By: #### L 500.4050, L501.84611, L501.9520, L506.0400 #### [facility] [address] [place], [address] Free T3on 07-06-2025 Free T3 [Mass/Vol] 3.1 pg/mL Normal 2.18-3.98 [facility] Comment on above: Performed By: #### L 500.4050, L501.37185, L501.9520, L506.0400 #### [facility] [address] [place], [address] Free P4Nawnnsl By: Kirby Burrows on 07-06-2025 Free T3 [Mass/Vol] 3.1 pg/mL 2.18-3.98 [facility] T4 Free Directon 07-06-2025 T4 FREE DIRECT 0.80 ng/dL Normal 0.76-1.46 [facility] Comment on above: Performed By: #### L 500.4050, L501.32839, L501.9520, L506.0400 #### [facility] [address] [place], [address] T4 freeOrdered By: Kirby Burorws on 07-06-2025 Free T4 [Mass/Vol] 0.80 ng/dL 0.76-1.46 [facility] TSH DL <= 0.005 mIU/L QnOrde red By: Kirby Burrows on 07-06-2025 TSH Qn 0.602 uIU/mL 0.300-4.200 [facility] Thyroid Stim Hormone (TSH)on 07-06-2025 TSH 0.602 uIU/mL Normal 0.300-4.200 [facility] Comment on above: Performed By: #### L 500.4050, L501.76400, L501.9520, L506.0400 #### [facility] [address] [place], [address] Free T3on 06-18-2025 Free T3 [Mass/Vol] 2.6 pg/mL Normal 2.18-3.98 [facility] Comment on above: Performed By: #### L 500.4050, L501.24854, L501.9520, L506.0400 #### [facility] [address] [place], [address] Free S8Opwbkoo By: Kirby Burrows on 06-18-2025 Free T3 [Mass/Vol] 2.6 pg/mL 2.18-3.98 [facility] T4 Free Directon 06-18-2025 T4 FREE DIRECT 0.70 ng/dL Low 0.76-1.46 [facility] Comment on above: Performed By: #### L 500.4050, L501.00993, L501.9520, L506.0400 #### [facility] [address] [place], [place], [id number] T4 freeOrdered By: Kirby Burrows on 06-18-2025 Free T4 [Mass/Vol] 0.70 ng/dL Low 0.76-1.46 [facility] Free O8Omdjlts By: Kirby Burrows on 05-25-2025 Free T3 [Mass/Vol] 4.1 pg/mL High 2.18-3.98 [facility] Comment on above: Performed By: #### L 501.46012, L506.0400 #### [facility] [address] [place], [place], [id number] T4 Free Directon 05-25-2025 T4 FREE DIRECT 1.20 ng/dL Normal 0.76-1.46 [facility] Comment on above: Performed By: #### L 501.93039, L506.0400 #### [facility] [address] [place], [address] T4 freeOrdered By: Kirby Burrows on 05-25-2025 Free T4 [Mass/Vol] 1.20 ng/dL 0.76-1.46 [facility] Free T3on 05-10-2025 Free T3 [Mass/Vol] 4.1 pg/mL High 2.18-3.98 [facility] Comment on above: Performed By: #### L 500.4050, L501.60194, L501.9520, L506.0400 #### [facility] [address] [place], [address] Free M9Dibcvbp By: Kirby Burrows on 05-10-2025 Free T3 [Mass/Vol] 4.1 pg/mL High 2.18-3.98 [facility] T4 Free Directon 05-10-2025 T4 FREE DIRECT 1.50 ng/dL High 0.76-1.46 [facility] Comment on above: Performed By: #### L 500.4050, L501.99032, L501.9520, L506.0400 #### [facility] [address] [place], [address] T4 freeOrdered By: Kirby Burrows on 05-10-2025 Free T4 [Mass/Vol] 1.50 ng/dL High 0.76-1.46 [facility] Free F2Fkctrrq By: Kirby Burrows on 04-27-2025 Free T3 [Mass/Vol] 4.9 pg/mL High 2.18-3.98 [facility] Comment on above: Performed By: #### L 501.88752, L506.0400 #### [facility] [address] [place], [address] T4 Free Directon 04-27-2025 T4 FREE DIRECT 1.70 ng/dL High 0.76-1.46 [facility] Comment on above: Performed By: #### L 500.4050, L501.82670, L501.9520, L506.0400 #### [facility] [address] [place], [address] T4 freeOrdered By: Kirby Burrows on 04-27-2025 Free T4 [Mass/Vol] 1.70 ng/dL High 0.76-1.46 [facility] Free T3on 04-13-2025 Free T3 [Mass/Vol] 6.1 pg/mL High 2.18-3.98 [facility] Comment on above: Performed By: #### L 500.4050, L501.68778, L501.9520, L506.0400 #### [facility] [address] [place], [address] Free C3Dcyprcq By: Kirby Burrows on 04-13-2025 Free T3 [Mass/Vol] 6.1 pg/mL High 2.18-3.98 [facility] T4 Free Directon 04-13-2025 T4 FREE DIRECT 1.70 ng/dL High 0.76-1.46 [facility] Comment on above: Performed By: #### L 500.4050, L501.08121, L501.9520, L506.0400 #### [facility] [address] [place], [place], [id number] T4 freeOrdered By: Kirby Burrows on 04-13-2025 Free T4 [Mass/Vol] 1.70 ng/dL High 0.76-1.46 [facility] TSH DL <= 0.005 mIU/L QnOrde red By: Kirby Burrows on 04-13-2025 TSH Qn < 0.005 uIU/mL Low 0.300-4.200 [facility] Thyroid Stim Hormone (TSH)on 04-13-2025 TSH Qn m[IU]/L Low 0.300-4.200 [facility] Comment on above: Performed By: #### L 500.4050, L501.90423, L501.9520, L506.0400 #### [facility] [address] [place], [place], [address] Free T3on 03-28-2025 Free T3 [Mass/Vol] 7.8 pg/mL High 2.18-3.98 [facility] Comment on above: Performed By: #### L 500.4050, L501.18266, L501.9520, L506.0400 #### [facility] [address] [place], [place], [id number] Free R4Zercwnx By: Elpidio on 03-28-2025 Free T3 [Mass/Vol] 7.8 pg/mL High 2.18-3.98 [facility] T4 Free Directon 03-28-2025 T4 FREE DIRECT 1.80 ng/dL High 0.76-1.46 [facility] Comment on above: Performed By: #### L 500.4050, L501.46943, L501.9520, L506.0400 #### [facility] [address] [facility] [place], [place], [id number] T4 freeOrdered By: Elpidio on 03-28-2025 Free T4 [Mass/Vol] 1.80 ng/dL High 0.76-1.46 [facility] TSH DL <= 0.005 mIU/L QnOrde red By: Zuleyma Shaffer on 03-28-2025 TSH Qn < 0.005 uIU/mL Low 0.300-4.200 [facility] Thyroid Stim Hormone (TSH)on 03-28-2025 TSH Qn m[IU]/L Low 0.300-4.200 [facility] Comment on above: Performed By: #### L 500.4050, L501.48348, L501.9520, L506.0400 #### [facility] [address] [place], [address] Biologics Injection: Tian brito 03-23-2025 Dee Glasgow, 03/23/2025 2:15 PM Biologics Injection: R shoulder [...] these instructions. Informed Consent Consent Obtained: Written [place] Protocol A moment to CARE was completed. [...] the bedside nurse for hospitalized patients) applicable. [facility] CNOVon 03-23-2025 CNOV Office Visit (ORAVON ) RITIKA VEGA ([id number]) 1985 F Date Time Provider Department 03/23/25 [...] these instructions. Informed Consent Consent Obtained: Written [place] Protocol A moment to CARE was completed. [...] Glasgow DO 03/23/2025 Referring Provider: DEE GLASGOW [[id number]] Allergies As of Date: 03/23/2025 (No Known Allergies) Date Reviewed: 03/23/2025 Reviewed by: Dee Glasgow DO - Fully Assessed Primary Visit Diagnosis:Glenoid labral tear, right, initial encounter [S43.431A] Other Visit Diagnosis:Tendinopathy of right rotator cuff [M67.911] Order(s):US SHOULDER-INJECTION RT (POC) CHANDRAKANT USE ONLY [0822762] Order #: [id number]. #:[id number]: 1 HYDROcodone-acetaminop hen (NORCO) 5-325 mg per tabletTake 1 tablet by mouth every 8 hours as needed for pain for up to 5 days.Disp: 15 tabletRfl: 0 CONSULT TO PHYSICAL THERAPY [9032] Order #: [id number]: 1 FUTURE [employer]olog[employer] Injection: R shoulder [PMV046] Order #: [id number] Prescriptions as of 03/23/2025 - HYDROcodone-acetaminop hen [...] Status:Closed by DEE GLASGOW on 03/23/25 Normal [facility] SHOULDER-INJECTION RT (PO C) CHANDRAKANT USE ONLYon 03-23-2025 [facility] Free T3on 03-15-2025 Free T3 [Mass/Vol] 7.3 pg/mL High 2.18-3.98 [facility] Comment on above: Performed By: #### L 501.06580, L501.9520, L506.0400 #### [facility] [address] [place], [place], [address] Free I5Rfgmief By: Kirby Burrows on 03-15-2025 Free T3 [Mass/Vol] 7.3 pg/mL High 2.18-3.98 [facility] T4 Free Directon 03-15-2025 T4 FREE DIRECT 1.90 ng/dL High 0.76-1.46 [facility] Comment on above: Performed By: #### L 501.03272, L501.9520, L506.0400 #### [facility] [address] [place], [place], [id number] T4 freeOrdered By: Kirby Burrows on 03-15-2025 Free T4 [Mass/Vol] 1.90 ng/dL High 0.76-1.46 [facility] TSH DL <= 0.005 mIU/L QnOrde red By: Kirby Burrows on 03-15-2025 TSH Qn < 0.005 uIU/mL Low 0.300-4.200 [facility] Thyroid Stim Hormone (TSH)on 03-15-2025 TSH Qn m[IU]/L Low 0.300-4.200 [facility] Comment on above: Performed By: #### L 501.01672, L501.9520, L506.0400 #### [facility] [address] [place], [place], [address] Endocrinology Visit Reporton 02-15-2025 Endocrinology Visit Report [facility] 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 Normal [facility] Free T3on 01-08-2025 Free T3 [Mass/Vol] 3.4 pg/mL Normal 2.18-3.98 [facility] Comment on above: Performed By: #### L 500.4050, L501.12637, L501.9520, L506.0400 #### [facility] [address] [place], [place], [address] Free T9Dvdymkr By: Kirby Burrows on 01-08-2025 Free T3 [Mass/Vol] 3.4 pg/mL 2.18-3.98 [facility] Free Triiodothyronine (T3) pg/dL 3.4 pg/mL 2.18-3.98 [facility] T4 Free Directon 01-08-2025 T4 FREE DIRECT 1.30 ng/dL Normal 0.76-1.46 [facility] Comment on above: Performed By: #### L 500.4050, L501.01243, L501.9520, L506.0400 #### [facility] [address] [place], [place], [id number] T4 freeOrdered By: Kirby Burrows on 01-08-2025 Free T4 [Mass/Vol] 1.30 ng/dL 0.76-1.46 [facility] TSH DL <= 0.005 mIU/L QnOrde red By: Kirby Burrows on 01-08-2025 Thyroid Stimulating Hormone (TSH) 0.102 uIU/mL Low 0.300-4.200 [facility] TSH Qn 0.102 uIU/mL Low 0.300-4.200 [facility] Thyroid Stim Hormone (TSH)on 01-08-2025 TSH 0.102 uIU/mL Low 0.300-4.200 [facility] Comment on above: Performed By: #### L 500.4050, L501.58812, L501.9520, L506.0400 #### [facility] [address] [place], [address] MULLERon 01-06-2025 [facility] 1.29 ng/mL Normal [facility] Comment on above: Result Comment: For assays employing antibodies, the possibility exists for interference by heterophile antibodies in the samples.1 1.Westley Alaniz Interferences in Immunoassays - still a threat. Clin. Chem. 2000; 46: 9707-2814. This test was developed and its performance characteristics determined by [employer]. It has not been cleared or approved by the Food and Drug Administration. Reference Range: Females 36 - 40y: 0.42 - 8.34 Median 1.69 AMH concentrations of >= 1.06 ng/mL is correlated with a better response to ovarian stimulation, produced more retrievable oocytes and higher odds of live according to Joeyer et al. Fertility and Sterility. 2010: 94:9725-3957. The current AMH test method correlates with [...] exclude an AMH-secreting ovarian tumor. Performed At: [facility] [address] [place], [place] [id number] Chris Newton MD Ph:[phone] Performed By: #### [id number] #### [place] [id number] [place], [place] [address] Pre Algebra Teacher Office Visit Reporton 01-01-2025 Pre Algebra Teacher Office Visit Report [facility]'s [address], [address] [place] [address] OFFICE VISIT Date of Service: 01/01/25 MR#: [id number] Acct: [id number] Name: RITIKA VEGA Rep #: [id number] : 1985 Provider: ELIECER Cortez Age/Sex: 39/F Location: [facility] [place].W Status: Signed Intake Vital Signs 04/19/24 07:00 08/17/24 08:34 01/01/25 09:02 01/01/25 09:05 Height 5 ft 11 in 5 ft 11 in 5 ft 11 in 5 ft 11 in Weight: 160 lb BMI 22.3 BP 120/75 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 She follows with [facility] for fertility. She will be undergoing a [...] all relate (more content not included)... Normal [facility] Direct serum free thyroxine (FT4) measurementOrdered By: Kirby Burrows on 12-08-2024 Free T4 [Mass/Vol] 1.11 ng/dL 0.76-1.46 [facility] Free T3on 12-08-2024 Free T3 [Mass/Vol] 3.4 pg/mL Normal 2.18-3.98 [facility] Comment on above: Performed By: #### L 500.4050, L501.94614, L501.9520, L506.0400 #### [facility] [address] [place], [address] Free [id number] By: Kirby Burrows on 12-08-2024 Free T3 [Mass/Vol] 3.4 pg/mL 2.18-3.98 [facility] Free Triiodothyronine (T3) pg/dL 3.4 pg/mL 2.18-3.98 [facility] Serum or plasma thyroid stim ulating hormone (TSH) measurement (units/volume)Ordered By: Kirby Burrows on 12-08-2024 TSH Qn 0.108 uIU/mL Low 0.358-3.740 [facility] T4 Free Directon 12-08-2024 T4 FREE DIRECT 1.11 ng/dL Normal 0.76-1.46 [facility] Comment on above: Performed By: #### L 501.20977, L501.9520, L506.0400 #### [facility] [address] [place], [address] TSH QnOrdered By: Kirby Burrows on 12-08-2024 Thyroid Stimulating Hormone (TSH) 0.108 uIU/mL Low 0.358-3.740 [facility] Thyroid Stim Hormone (TSH)on 12-08-2024 TSH 0.108 uIU/mL Low 0.358-3.740 [facility] Comment on above: Performed By: #### L 501.76310, L501.9520, L506.0400 #### [facility] [address] [place], [address] Office Visiton 11-14-2024 Follow-up visit [id number] Ritika Vega 1985 F Date Provider Department Center 11/14/2024 [id number] DOE [facility] 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 REPAIRER None Family History Problem Relation Age of Onset Depression Mother Hypertension Mother Arthritis Father Hypertension Father Heart disease Maternal Grandfather Anesthesia problems Maternal Grandmother Diabetes Maternal Grandmother Heart disease Maternal Grandmother Heart disease Paternal Grandfather Stroke Paternal Grandfather Cancer Paternal Grandmother Family Status - Relation Status Age at Mother Father Maternal Grandfather Maternal Grandmother Paternal Grandfather Paternal Grandmother Level of Service:43373 OR POSTOP FOLLOW UP VISIT RELATED TO ORIGINAL PX Reason for Visit and Comments: Post-op Visit [559] - No incision issues, no concerns with bowel or bladder function. Normal [facility] Progress Noteon 11-14-2024 Progress Note GYNECOLOGIC [...] PO Take 240 mg by mouth daily. Holden-3 Fatty Acids (Fish Oil) 1000 MG capsule [...] Follow-up with Dr. Bustillos and with primary window glazier for routine care. I explained diagnosis and treatment plan; patient expressed understanding and was in agreement with the plan. Jazmyne Argueta APRN - JOB LITHOGRAPHER [facility] 36on 11-09-2024 36 Called pt with [facility], pt verbalized understanding and had no further questions. Normal [facility] HCG ( test) Ql (U)o n 11-06-2024 Beta HCG ( test) Ql (U) [id number] [facility] Interpretation and review of laboratory results Normal [facility] NEGATIVE QC Pass [facility] POSITIVE QC Pass [facility] Preg Test, Ur Negative Negative [facility] Nursing Noteon 11-06-2024 Nursing Note Family/visitor at bedside with patient. Normal [facility] Op Noteon 11-06-2024 Op Note Date: 11/06/2024 Location: [facility] OR Name: Ritika Vega, : 1985, Diagnosis Pre-op Diagnosis * Intra-abdominal and pelvic swelling, mass and lump, unspecified site [R19.00] Post-op Diagnosis * Intra-abdominal and pelvic swelling, mass and lump, unspecified site [R19.00] Procedures LAPAROSCOPIC OVARIAN CYSTECTOMY 85793 - OR OVARIAN CYSTECTOMY UNI/BI Surgeons * Pedro Edwards [...] 11/06/24 1409 Description: RIGHT OVARIAN CYST Staff: Lime Hide Inspector: Angelina Clifton RN; Evelia Beasley RN Scrub [...] are not indicated for this procedure. [facility] Op Note Date: 11/06/2024 Location: [facility] OR Name: Ritika Vega, : 1985, Diagnosis Pre-op Diagnosis * Intra-abdominal and pelvic swelling, mass and lump, unspecified site [R19.00] Post-op Diagnosis * Intra-abdominal and pelvic swelling, mass and lump, unspecified site [R19.00] Procedures LAPAROSCOPIC RIGHT OVARIAN CYSTECTOMY 95490 - OR OVARIAN CYSTECTOMY UNI/BI Surgeons * Pedro Edwards [...] 11/06/24 1409 Description: RIGHT OVARIAN CYST Staff: Lime Hide Inspector: Angelina Clifton RN; Evelia Beasley RN Scrub Person: Dread Daliagarett Findings: Enlarged right ovary with a smooth [...] (more content not included)... Normal [facility] Progress Noteon 11-06-2024 Progress Note Patient feeling bett er after IM Ephedrine injection. Ambulated and ready to be discharged Normal [facility] Progress Note Per previous nursing note, [...] upon standing, patient vomited. Normal [facility] Progress Note Patient states she i s feeling better. We will attempt to ambulate to restroom Normal [facility] Progress Note Discharge informatio n given to the patient. Patient and family verbalized understanding of information. All questions were answered at this time. Patient denies dizziness. Vital signs are stable. Normal [facility] [id number] 11-03-2024 [id number] Medication List Accurate as of November 03, [...] hours prior to surgery. Please bring your [facility] Surgical folder with you day of surgery. [...] time and date. You may use the [employer] parking located at the main entrance on [address] [facility] and take the H elevator to the first floor for same day surgery. Take a left after exiting the elevator and check in at the desk. Or- You may use the parking in the Main deck. Take the level one bridge to the H building and follow the signs for same day surgery. Check in at the desk. [facility] 36on 10-31-2024 36 Called out to the patient to advised patient of scheduled PAT phone call, scheduled Saturday 11/03 at 0830. Patient agreed for call. Normal [facility] 36 S/w Amber verification of outpatient Cpt 39251, Plan coverage 11/08/2023 to current. CPT 44604 does not require prior authorization as long as Outpatient. Call reference# [id number]. Normal [facility] MR Shoulder - right WO contr shiloh 10-30-2024 IMPRESSION: Mild supraspinatus tendinosis with a low-grade partial-thickness tear. No high-grade or full-thickness rotator cuff tendon tear is identified. Possible superior glenoid labral tear. Career Advisor: YANG Transcribe Date/Time: Oct 30 2024 8:41A Dictated by : BHARATH FREGOSO MD This examination was interpreted and the report reviewed and electronically signed by: BHARATH FREGOSO MD on Oct 30 2024 8:47AM [facility] DIVISION OF RADIOLOGY * * *Final Report* * * DATE OF EXAM: Oct 30 2024 7:50AM [facility] 0240 - MRI SHOULDER WO IVCON RT [...] No additional findings. DIVISION OF RADIOLOGY Provider, [facility] - 10/30/2024 * * *Final Report* [...] is identified. Possible superior glenoid labral tear. Career Advisor: [facility] Transcribe Date/Time: Oct 30 2024 8:41A Dictated by : BHARATH FREGOSO MD This examination was interpreted and the report reviewed and electronically signed by: BHARATH FREGOSO MD on Oct 30 2024 8:47AM EST [facility] Radiology Study observation (narrative) [facility] MR Shoulder - right WO contr astOrdered By: Ccf Provider on 10-30-2024 [facility] MRI SHOULDER WO IVCON RTon 1 12-31-2023 MRI SHOULDER WO IVCON RT * * *Final Report* * * DATE OF EXAM: Oct 30 2024 7:50AM [facility] 0240 - MRI SHOULDER WO IVCON RT [...] is identified. Possible superior glenoid labral tear. Career Advisor: [facility] Transcribe Date/Time: Oct 30 2024 8:41A Dictated by : BHARATH FREGOSO MD This examination was interpreted and the report reviewed and electronically signed by: BHARATH FREGOSO MD on Oct 30 2024 8:47AM EST [id number] Normal [facility] Office Visiton 10-30-2024 Follow-up visit [id number] Ritika Vega 1985 F Date Provider Department Center 10/30/2024 [id number], ROBIN[facility] 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 REPAIRER None Family History Problem Relation Age of Onset Depression Mother Hypertension Mother Arthritis Father Hypertension Father Heart disease Maternal Grandfather Anesthesia problems Maternal Grandmother Diabetes Maternal Grandmother Heart disease Maternal Grandmother Heart disease Paternal Grandfather Stroke Paternal Grandfather Cancer Paternal Grandmother Family Status - Relation Status Age at Mother Father Maternal Grandfather Maternal Grandmother Paternal Grandfather Paternal Grandmother Level of Service:35973 OR OFFICE/OUTPATIENT NEW MODERATE MDM 45 MINUTES Reason for Visit and Comments: Other [0] - Pelvic mass Normal [facility] Progress Noteon 10-30-2024 Progress Note Chief [...] Arthritis Father Anjel Vega Hypertension Father Anjel Gutierrezphrey Heart disease Maternal Grandfather Apolinar Meiser Anesthesia [...] of possible need (more content not included)... [facility] 36on 10-26-2024 36 Called patient to schedule restaurant expeditor appointment. First available is 11/09/24. Patient wanted to know if you had anything sooner. I know you have pto and scheduled for surgery. I told patient I would see if we could do something sooner, but I told her I couldn't promise her anything. Is it okay to put her with Dr. Jimenez? [facility] CNOVon 10-18-2024 CNOV Office Visit (LOORRM ) VEGARITIKA RAMIREZ ([id number]) 1985 F Date Time Provider Department 10/18/24 10:30 AM DEE GLASGOW LOORRM During your visit today, we recorded the [...] results and radiologist's interpretation, available in the [facility] health record. Images were reviewed with the [...] Allergies) Date Reviewed: 10/18/2024 Reviewed by: Dee Glasgow, - Fully Assessed Reason for Visit: New [439849] Pain (Shoulder Pain) [1343] Primary Visit Diagnosis:Glenoid labral tear, right, initial encounter [S43.431A] Other Visit Diagnosis:Tendinopathy of right rotator cuff [M67.911] Order(s):MRI SHOULDER WO IVCON RIGHT [1180165] Order #: [id number] FUTURE Prescriptions as of 10/18/2024 - cetirizine HCl (ZYRTEC ORAL) Take by mouth. - metHIMazole (TAPAZOLE) 10 mg tablet Take 1 tablet by mouth once daily. - budesonide (RHINOCORT NASAL) Use in the nose once daily. - cyanocobalamin (VITAMIN B-12) 1,000 mcg tab Take 1,000 mcg by mouth once daily. - Norethindrone Acet-Ethinyl Est (JUNEL ,) 1-20 mg-mcg [...] 10-18-2024 Free T4 [Mass/Vol] 0.87 ng/dL 0.76-1.46 [facility] Free T3on 10-18-2024 Free T3 [Mass/Vol] 2.6 pg/mL Normal 2.18-3.98 [facility] Comment on above: Performed By: #### L 500.4050, L501.76182, L501.9520, L506.0400 #### [facility] [address] [place], [address] Free [id number] By: Kirby Burrows on 10-18-2024 Free Triiodothyronine (T3) pg/dL 2.6 pg/mL 2.18-3.98 [facility] T4 Free Directon 10-18-2024 T4 FREE DIRECT 0.87 ng/dL Normal 0.76-1.46 [facility] Comment on above: Performed By: #### L 500.4050, L501.38945, L501.9520, L506.0400 #### [facility] [address] [place], [address] TSH QnOrdered By: Kirbyartemio Burrows on 10-18-2024 Thyroid Stimulating Hormone (TSH) 0.640 uIU/mL 0.358-3.740 [facility] Thyroid Stim Hormone (TSH)on 10-18-2024 TSH 0.640 uIU/mL Normal 0.358-3.740 [facility] Comment on above: Performed By: #### L 500.4050, L501.61988, L501.9520, L506.0400 #### [facility] [address] [place], [address] XR SHLDR >/=3V AP/GWEN AP/OTH R RTon [...] are preserved. IMPRESSION: No acute bony abnormality. Career Advisor: YANG Transcribe Date/Time: Oct 18 2024 10:04A Dictated by : BHARATH FREGOSO MD This examination was interpreted and the report reviewed and electronically signed by: BHARATH FREGOSO MD on Oct 18 2024 10:05AM EST [id number] Normal [facility] MR PELVIS W //T// W/O CONTRA Neeraj 10-13-2024 MR PELVIS W //T// W/O CONTRAST [address] [address] Patient: RITIKA VEGA Phone#: : 1985 Age: 38 Gender: F Pt. Type: Out Account: [id number] Location: Ordering: INNA BUSTILLOS Exam Date: 10/13/2024/10:03 Family Phys: Charge Code: 487609 Physician: [place] Order #: [id number] Dose#: PROCEDURE: MRI PELVIS WITH AND WITHOUT [...] Live MD on 10/20/2024 at 13:59 Normal [facility] XR SHLDR >/=3V AP/GWEN AP/OTH R [...] AP/GWEN AP/OTHR RT could not be completed. Career Advisor: PSCB Transcribe Date/Time: Oct 12 2024 9:49A Dictated [...] AP/GWEN AP/OTHR RT could not be completed. Career Advisor: YANG Transcribe Date/Time: Oct 12 2024 9:49A Dictated by : TAYLER TURCIOS MD This examination was interpreted and the report reviewed and electronically signed by: TAYLER TURCIOS MD on Oct 12 2024 9:52AM EST [id number] Normal [facility] CTPCRon 10-02-2024 C. trachomatis Interp Normal See CT Interp [facility] Comment on above: Result Comment: C. t rachomatis DNA not detected. Specimen is presumptive negative for C. trachomatis. A negative result does not preclude C. trachomatis infection because results depend on adequate specimen collection, absence of inhibitors, and sufficient DNA to be detected. See CT Inter N Performed By: #### N GPCR1, CTPCR #### [address] [address] C.trachomatis PCR Negative Normal Negative [facility] Comment on above: Result Comment: Mole cular (PCR) assay performed on the Roly Leelee 4800 system. Performed By: #### N GPCR1, CTPCR #### [address] [address] Chlam Source Urine Normal [facility] Comment on above: Performed By: #### N GPCR1, CTPCR #### [address] [address] [id number] 10-02-2024 GC PCR Source Urine Normal [facility] Comment on above: Performed By: #### N GPCR1, CTPCR #### [address] [address] N. gonorrhoeae (PCR) Negative Normal Negative [facility] Comment on above: Result Comment: Mole cular (PCR) assay performed on the Roly Leelee 4800 System. Performed By: #### N GPCR1, CTPCR #### [address] [address] N. gonorrhoeae Interp Normal See NG Interp [facility] Comment on above: Result Comment: N. g onorrhoeae DNA not detected. Specimen is presumptive negative for N. gonorrhoeae. A negative result does not preclude Neisseria gonorrhoeae infection because results depend on adequate specimen collection, absence of inhibitors, and sufficient DNA to be detected. See NG Interp N Performed By: #### N GPCR1, CTPCR #### [place] [address] RPRon 10-02-2024 Reagin Ab RPR Ql (S) Non-Reactive Normal Non-Reactive [facility] Comment on above: Result Comment: The [...] Performed By: #### N GPCR1, CTPCR #### [place] [address] RUBISon 10-02-[address] Positive Normal Positive [facility] Comment on above: Result Comment: This immune status assay detects IgM and/or IgG antibody to Rubella. Interpret results in conjunction with clinical history. POS: Antibody detected; exposure at undetermined recent or distant time. If clinically indicated, order Rubella IGM to rule out recent infection. NEG: No antibody detected. Performed By: #### N GPCR1, CTPCR #### [place] [address] VARISon 09-30-[address] Positive [facility] Comment on above: Result Comment: INTE RPRETATION OF VARICELLA IMMUNE STATUS IgG BY EIA: Negative: No detectable VZV IgG antibody. Positive: VZV IgG antibody Detected. If clinically indicated, order Varicella IgM to rule out recent infection. Equivocal: Equivocal for antibodies to VZV. Suggest repeat testing in 10-14 days. Performed By: #### N GPCR1, CTPCR #### [place] [address] .GFRon 09-29-2024 GFR Non- >60 Normal [facility] Comment on above: Result Comment: GFR [...] GFR, HIV, A1C, VARIS, RUBIS, ABSGEL #### [address] [address] GFR >60 Normal [facility] Comment on above: Result Comment: [...] GFR, HIV, A1C, VARIS, RUBIS, ABSGEL #### [address] [address] A1Con 09-29-2024 Glucose [Mass/Vol] 97 mg/dL Normal [facility] Comment on above: Result Comment: Concetta mated Average Glucose calculated by equation ((28.7xA1C)-46.7) Estimated average glucose (eAG) is a calculated value from Hemoglobin A1C and is airline security representative of the average blood glucose level in the last 2-3 month period. Normal range: less than 114 mg/dL Performed By: #### H BSAG, CMP, HCV1, RPR, HGMP, GFR, HIV, A1C, VARIS, RUBIS, ABSGEL #### [place] [address] HbA1c (Bld) [Mass fraction] 5.0 % Normal 4.0-6.0 [facility] Comment on above: Performed By: #### H BSAG, CMP, HCV1, RPR, HGMP, GFR, HIV, A1C, VARIS, RUBIS, ABSGEL #### [place] [id number] ABS (Gel)on 09-29-2024 ABSC Interp (Gel) Negative Normal [facility] Comment on above: Performed By: #### H BSAG, CMP, HCV1, RPR, HGMP, GFR, HIV, A1C, VARIS, RUBIS, ABSGEL #### [place] [id number] CMPon 09-29-2024 Albumin Level 3.7 G/dL Normal 3.2-4.8 [facility] Comment on above: Performed By: #### H BSAG, CMP, HCV1, RPR, HGMP, GFR, HIV, A1C, VARIS, RUBIS, ABSGEL #### [place] [id number] Albumin/Globulin [Mass ratio] 1.3 {ratio} Normal 0.9-1.6 [facility] Comment on above: Performed By: #### H BSAG, CMP, HCV1, RPR, HGMP, GFR, HIV, A1C, VARIS, RUBIS, ABSGEL #### [place] [id number] ALP [Catalytic activity/Vol] 50 U/L Normal 38-126 [facility] Comment on above: Performed By: #### H BSAG, CMP, HCV1, RPR, HGMP, GFR, HIV, A1C, VARIS, RUBIS, ABSGEL #### [place] [id number] ALT [Catalytic activity/Vol] 29 U/L Normal 10-49 [facility] Comment on above: Performed By: #### H BSAG, CMP, HCV1, RPR, HGMP, GFR, HIV, A1C, VARIS, RUBIS, ABSGEL #### [place] [id number] AST [Catalytic activity/Vol] 19 U/L Normal 8-34 [facility] Comment on above: Performed By: #### H BSAG, CMP, HCV1, RPR, HGMP, GFR, HIV, A1C, VARIS, RUBIS, ABSGEL #### [address] [address] Bili Total 0.70 mg/dL Normal 0.20-1.20 [facility] Comment on above: Result Comment: Use of this assay is not recommended for patients undergoing treatment with eltrombopag due to the potential for falsely elevated results. Performed By: #### H BSAG, CMP, HCV1, RPR, HGMP, GFR, HIV, A1C, VARIS, RUBIS, ABSGEL #### [place] [id number] BUN/Creatinine Ratio 19.2 ratio Normal 10.0-22.0 [facility] Comment on above: Performed By: #### H BSAG, CMP, HCV1, RPR, HGMP, GFR, HIV, A1C, VARIS, RUBIS, ABSGEL #### [address] [address] Calcium [Mass/Vol] 9.4 mg/dL Normal 8.7-10.4 [facility] Comment on above: Performed By: #### H BSAG, CMP, HCV1, RPR, HGMP, GFR, HIV, A1C, VARIS, RUBIS, ABSGEL #### [address] [address] Chloride [Moles/Vol] 107 mmol/L Normal 98-110 [facility] Comment on above: Performed By: #### H BSAG, CMP, HCV1, RPR, HGMP, GFR, HIV, A1C, VARIS, RUBIS, ABSGEL #### [address] [address] CO2 [Moles/Vol] 29 mmol/L Normal 22-32 [facility] Comment on above: Performed By: #### H BSAG, CMP, HCV1, RPR, HGMP, GFR, HIV, A1C, VARIS, RUBIS, ABSGEL #### [address] [address] Creatinine [Mass/Vol] 0.99 mg/dL Normal 0.50-1.20 [facility] Comment on above: Result Comment: Test ing performed on Driverdo analyzer using enzymatic creatinine methodology. Performed By: #### H BSAG, CMP, HCV1, RPR, HGMP, GFR, HIV, A1C, VARIS, RUBIS, ABSGEL #### [address] [address] Electrolyte Balance 6.0 mEq/L Normal 4.0-15.0 [facility] Comment on above: Performed By: #### H BSAG, CMP, HCV1, RPR, HGMP, GFR, HIV, A1C, VARIS, RUBIS, ABSGEL #### [address] [address] Globulin 2.9 G/dL Normal 1.5-3.8 [facility] Comment on above: Performed By: #### H BSAG, CMP, HCV1, RPR, HGMP, GFR, HIV, A1C, VARIS, RUBIS, ABSGEL #### [address] [address] Glucose [Mass/Vol] 81 mg/dL Normal 70-110 [facility] Comment on above: Performed By: #### H BSAG, CMP, HCV1, RPR, HGMP, GFR, HIV, A1C, VARIS, RUBIS, ABSGEL #### [address] [address] Potassium [Moles/Vol] 4.4 mmol/L Normal 3.5-5.0 [facility] Comment on above: Performed By: #### H BSAG, CMP, HCV1, RPR, HGMP, GFR, HIV, A1C, VARIS, RUBIS, ABSGEL #### [address] [address] Sodium [Moles/Vol] 142 mmol/L Normal 136-145 [facility] Comment on above: Performed By: #### H BSAG, CMP, HCV1, RPR, HGMP, GFR, HIV, A1C, VARIS, RUBIS, ABSGEL #### [place] [address] Total Protein 6.6 G/dL Normal 5.7-8.2 [facility] Comment on above: Performed By: #### H BSAG, CMP, HCV1, RPR, HGMP, GFR, HIV, A1C, VARIS, RUBIS, ABSGEL #### [place] [address] Urea nitrogen [Mass/Vol] 19.0 mg/dL Normal 8.0-22.0 [facility] Comment on above: Performed By: #### H BSAG, CMP, HCV1, RPR, HGMP, GFR, HIV, A1C, VARIS, RUBIS, ABSGEL #### [place] [id number] HBSAGon 09-29-2024 Hep B Surf Ag Non-Reactive Normal Non-Reactive [facility] Comment on above: Performed By: #### H BSAG, CMP, HCV1, RPR, HGMP, GFR, HIV, A1C, VARIS, RUBIS, ABSGEL #### [place] [id number] HCVon 09-29-2024 Hep C Ab Non-Reactive Normal Non-Reactive [facility] Comment on above: Performed By: #### H BSAG, CMP, HCV1, RPR, HGMP, GFR, HIV, A1C, VARIS, RUBIS, ABSGEL #### [place] [address] Hep C Ab Int Normal [facility] Comment on above: Result Comment: Nonr [...] GFR, HIV, A1C, VARIS, RUBIS, ABSGEL #### [place] [id number] HGMPon 09-29-2024 Erythrocyte distribution width (RBC) [Ratio] 12.3 % Normal 11.5-15.5 [facility] Comment on above: Performed By: #### H BSAG, CMP, HCV1, RPR, HGMP, GFR, HIV, A1C, VARIS, RUBIS, ABSGEL #### [place] [address] Hematocrit (Bld) [Volume fraction] 38.0 % Normal 34.0-46.0 [facility] Comment on above: Performed By: #### H BSAG, CMP, HCV1, RPR, HGMP, GFR, HIV, A1C, VARIS, RUBIS, ABSGEL #### [place] [address] Hgb 12.9 G/dL Normal 12.0-16.0 [facility] Comment on above: Performed By: #### H BSAG, CMP, HCV1, RPR, HGMP, GFR, HIV, A1C, VARIS, RUBIS, ABSGEL #### [place] [id number] MCH (RBC) [Entitic mass] 33.2 pg High 27.0-33.0 [facility] Comment on above: Performed By: #### H BSAG, CMP, HCV1, RPR, HGMP, GFR, HIV, A1C, VARIS, RUBIS, ABSGEL #### [place] [id number] MCHC 34.0 G/dL Normal 32.0-36.0 [facility] Comment on above: Performed By: #### H BSAG, CMP, HCV1, RPR, HGMP, GFR, HIV, A1C, VARIS, RUBIS, ABSGEL #### [place] [address] MCV (RBC) [Entitic vol] 97.6 fL Normal 80.0-99.0 [facility] Comment on above: Performed By: #### H BSAG, CMP, HCV1, RPR, HGMP, GFR, HIV, A1C, VARIS, RUBIS, ABSGEL #### [place] [address] Platelet 275 10 3/mcL Normal 150-450 [facility] Comment on above: Performed By: #### H BSAG, CMP, HCV1, RPR, HGMP, GFR, HIV, A1C, VARIS, RUBIS, ABSGEL #### [place] [address] Platelet mean volume (Bld) [Entitic vol] 8.0 fL Normal 6.6-10.5 [facility] Comment on above: Performed By: #### H BSAG, CMP, HCV1, RPR, HGMP, GFR, HIV, A1C, VARIS, RUBIS, ABSGEL #### [place] [address] RBC 3.90 10 6/mcL Low 4.10-5.30 [facility] Comment on above: Performed By: #### H BSAG, CMP, HCV1, RPR, HGMP, GFR, HIV, A1C, VARIS, RUBIS, ABSGEL #### [place] [address] WBC 5.3 10 3/mcL Normal 4.5-10.8 [facility] Comment on above: Performed By: #### H BSAG, CMP, HCV1, RPR, HGMP, GFR, HIV, A1C, VARIS, RUBIS, ABSGEL #### [place] [address] HIVon 09-29-2024 HIV 1/2 Ab Non-Reactive Normal Non-Reactive [facility] Comment on above: Result Comment: Spec imen is negative for anti-HIV-1 and anti-HIV-2. Performed By: #### H BSAG, CMP, HCV1, RPR, HGMP, GFR, HIV, A1C, VARIS, RUBIS, ABSGEL #### [place] [address] LABORATORYOrdered By: SYSTEM SYSTEM on 09-29-2024 Albumin [...] 0.70 mg/dL Normal 0.20 - 1.20 mg/dL [facility] Comment on above: Interpretive Data: U se of this assay is not recommended for patients undergoing treatment with eltrombopag due to the potential for falsely elevated results. Calcium [Mass/Vol] 9.4 mg/dL Normal 8.7 - 10. 4 mg/dL ADM SS Chloride [Moles/Vol] 107 mmol/L Normal 98 - 11 0 mEq/L ADM SS CO2 [Moles/Vol] 29 mmol/L Normal 22 - 32 mEq/L [facility] SS Creatinine [Mass/Vol] 0.99 mg/dL Normal 0.50 - 1.20 mg/dL [facility] Comment on above: Interpretive Data: T esting performed on Driverdo analyzer using enzymatic creatinine methodology. Electrolyte Balance [...] calculated value from Hemoglobin A1C and is airline security representative of the average blood glucose level in the last 2-3 month period. Normal range: less than 114 mg/dL Glucose [Mass/Vol] 81 mg/dL Normal 70 - 110 mg/dL ADM SS HbA1c (Bld) [Mass fraction] 5.0 % Normal 4.0 - 6.0 % AH Auto Chem SS Hematocrit (Bld) [Volume fraction] 38.0 % Normal 34.0 - 46.0 % AH Workflow SS Hemoglobin (Bld) [Mass/Vol] 12.9 G/dL Normal 12.0 - 16.0 G/dL AH Workflow SS MCH (RBC) [Entitic mass] 33.2 pg High 27.0 - 33.0 pg AH Workflow SS MCHC 34.0 G/dL Normal 32.0 - 36.0 G/dL AH Workflow SS MCV (RBC) [Entitic vol] 97.6 fL Normal 80.0 - 99.0 fL Workflow SS Platelet mean volume (Bld) [Entitic vol] 8.0 fL Normal 6.6 - 10.5 fL AH Workflow SS Platelets (Bld) [#/Vol] 275 103/mcL Normal 150 - 450 10^3/mcL AH Workflow SS Potassium [Moles/Vol] 4.4 mmol/L Normal 3.5 - 5.0 mEq/L AH ADM SS Protein [Mass/Vol] 6.6 G/dL Normal 5.7 - 8.2 G/dL AH ADM SS RBC (Bld) [#/Vol] 3.90 106/mcL [...] in some clinical conditions. Invalid Interpretation Code AH Chemistry S HIV 1+2 Ab IA Ql Negative Invalid Interpretation Code AH Chemistry S HIV 1/2 Ab Non-Reactive (09/29/24 1:05 PM) Normal Non-Reactive AH ADM SS Free T3on 09-14-2024 Free T3 [Mass/Vol] 2.4 pg/mL Normal 2.18-3.98 [facility] Comment on above: Performed By: #### L 500.4050, L501.83222, L501.9520, L506.0400 #### [facility] [address] [place], [address] T4 Free Directon 09-14-2024 T4 FREE DIRECT 0.75 ng/dL Low 0.76-1.46 [facility] Comment on above: Performed By: #### L 500.4050, L501.51947, L501.9520, L506.0400 #### [facility] [address] [place], [address] Thyroid Stim Hormone (TSH)on 09-14-2024 TSH 1.460 uIU/mL Normal 0.358-3.740 [facility] Comment on above: Performed By: #### L 500.4050, L501.05143, L501.9520, L506.0400 #### [facility] [address] [place], [address] Comprehensive Metabolic Prof ilon 08-25-2024 Albumin [Mass/Vol] 3.7 g/dL Normal 3.2-5.0 [facility] Comment on above: Performed By: #### L 500.4050, L501.01348, L501.9520, L506.0400 #### [facility] [address] [place], [address] Albumin/Globulin [Mass ratio] 1.1 {ratio} Normal 0.9-2.4 [facility] Comment on above: Performed By: #### L 500.4050, L501.34437, L501.9520, L506.0400 #### [facility] [address] [place], [address] ALK P 50 U/L Normal 45-117 [facility] Comment on above: Performed By: #### L 500.4050, L501.90611, L501.9520, L506.0400 #### [facility] [address] [place], [address] ALT [Catalytic activity/Vol] 29 U/L Normal 13-56 [facility] Comment on above: Performed By: #### L 500.4050, L501.14404, L501.9520, L506.0400 #### [facility] [address] [place], [address] AST [Catalytic activity/Vol] 14 U/L Low 15-37 [facility] Comment on above: Performed By: #### L 500.4050, L501.78872, L501.9520, L506.0400 #### [facility] [address] [place], [address] Bilirubin [Mass/Vol] 1.00 mg/dL Normal 0.20-1.00 [facility] Comment on above: Result Comment: For patients on eltrombopag therapy, use of Dimension Alvin TBIL is not recommended. Performed By: #### L 500.4050, L501.94542, L501.9520, L506.0400 #### [facility] [address] [place], [address] BUN/CRE 14.4 RATIO Normal 10-20 [facility] Comment on above: Performed By: #### L 500.4050, L501.59739, L501.9520, L506.0400 #### [facility] [address] [place], [address] CA,Total 8.7 mg/dL Normal 8.5-10.1 [facility] Comment on above: Performed By: #### L 500.4050, L501.83838, L501.9520, L506.0400 #### [facility] [address] [place], [address] Chloride [Moles/Vol] 110 mmol/L High 98-107 [facility] Comment on above: Performed By: #### L 500.4050, L501.06774, L501.9520, L506.0400 #### [facility] [address] [place], [address] CO2 [Moles/Vol] 24.0 mmol/L Normal 21.0-32.0 [facility] Comment on above: Performed By: #### L 500.4050, L501.46394, L501.9520, L506.0400 #### [facility] [address] [place], [address] Creatinine [Mass/Vol] 1.04 mg/dL High 0.55-1.02 [facility] Comment on above: Result Comment: The validity of the calculated GFR GFRAA in patients over 70 years has not been determined. Clinical correlation is essential. Performed By: #### L 500.4050, L501.43309, L501.9520, L506.0400 #### [facility] [address] [place], [address] EST GFR - AA 76 mL/min Normal >60 [facility] Comment on above: Result Comment: Afri can Cypriot GFR Calc Performed By: #### L 500.4050, L501.08002, L501.9520, L506.0400 #### [facility] [address] [place], [address] GAP 5 Normal 5-15 [facility] Comment on above: Performed By: #### L 500.4050, L501.20575, L501.9520, L506.0400 #### [facility] [address] [place], [address] GFR/1.73 sq M.predicted among non-blacks MDRD (S/P/Bld) [Vol rate/Area] 63 mL/min/{1.73_m2} Normal >60 [facility] Comment on above: Result Comment: Non- GFR Calc Performed By: #### L 500.4050, L501.75993, L501.9520, L506.0400 #### [facility] [address] [place], [address] Globulin (S) [Mass/Vol] 3.3 g/dL Normal 2.2-4.2 [facility] Comment on above: Performed By: #### L 500.4050, L501.47765, L501.9520, L506.0400 #### [facility] [address] [place], [address] Glucose [Mass/Vol] 86 mg/dL Normal 74-106 [facility] Comment on above: Performed By: #### L 500.4050, L501.26369, L501.9520, L506.0400 #### [facility] [address] [place], [address] Potassium [Moles/Vol] 4.4 mmol/L Normal 3.5-5.1 [facility] Comment on above: Performed By: #### L 500.4050, L501.51023, L501.9520, L506.0400 #### [facility] [address] [place], [address] Sodium [Moles/Vol] 139 mmol/L Normal 136-145 [facility] Comment on above: Performed By: #### L 500.4050, L501.43730, L501.9520, L506.0400 #### [facility] [address] [place], [address] T PROT 7.0 g/dL Normal 6.4-8.2 [facility] Comment on above: Performed By: #### L 500.4050, L501.31175, L501.9520, L506.0400 #### [facility] [address] [place], [address] Urea nitrogen [Mass/Vol] 15 mg/dL Normal - [facility] Comment on above: Performed By: #### L 500.4050, L501.43778, L501.9520, L506.0400 #### [facility] [address] [place], [address] Free T3on 08-25-2024 Free T3 [Mass/Vol] 2.3 pg/mL Normal 2.18-3.98 [facility] Comment on above: Performed By: #### L 500.4050, L501.29982, L501.9520, L506.0400 #### [facility] [address] [place], [address] T4 Free Directon 08-25-2024 T4 FREE DIRECT 0.72 ng/dL Low 0.76-1.46 [facility] Comment on above: Performed By: #### L 500.4050, L501.01661, L501.9520, L506.0400 #### [facility] [address] [place], [address] Thyroid Stim Hormone (TSH)on 08-25-2024 TSH 1.670 uIU/mL Normal 0.358-3.740 [facility] Comment on above: Performed By: #### L 500.4050, L501.83016, L501.9520, L506.0400 #### [facility] [address] [place], [address] Endocrinology Visit Reporton 08-17-2024 Endocrinology Visit Report [facility] 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 Normal [facility] PROGESTERONE [CCL]on 024 Progesterone 25.0 ng/mL Normal See comment [facility] Comment on above: Result Comment: Mens trual Cycle Progesterone Reference Ranges: Follicular: <1.0 ng/mL Ovulation: <12.1 ng/mL Luteal: 1.8 to 23.9 ng/mL. Progesterone Reference Ranges vary by gestational period: First Trimester: 11.0 to 44.3 ng/mL Second Trimester: 25.4 to 83.3 ng/mL Third Trimester: 58.7 to 214 ng/mL Post menopausal Progesterone: <0.5 ng/mL Reference: 1. Progesterone (Progesterone III) [package insert V 1.0 Maltese]. [facility], [place], [place]. August 2015. [place] [address] Rambo Eckert III, M.D. [id number] Performed By: #### 2 [address] #### Sergio [facility],[address] [place] [address] [facility] Progesterone [Mass/Vol] 25.0 ng/mL Normal See comment [facility] Comment on above: Order Comment: Speci men Type: BLOOD SPECIMEN Ordering Facility: [facility] Address: [address] [place] [address] Result Comment: Mens trual Cycle Progesterone Reference Ranges: Follicular: <1.0 ng/mL Ovulation: <12.1 ng/mL Luteal: 1.8 to 23.9 ng/mL. Progesterone Reference Ranges vary by gestational period: First Trimester: 11.0 to 44.3 ng/mL Second Trimester: 25.4 to 83.3 ng/mL Third Trimester: 58.7 to 214 ng/mL Post menopausal Progesterone: <0.5 ng/mL Reference: 1. Progesterone (Progesterone III) [package insert V 1.0 Maltese]. [employer], [place], [place]. August 2015. Performed By: #### 2 839-9 #### [facility] CLIA [id number] [address] [place] [address] [place] No Panel InformationOrdered By: Kirby Burrows on 03-08-2024 Free Triiodothyronine (T3) pg/dL 2.4 pg/mL 2.18-3.98 [facility] Serum or plasma thyroid stim ulating hormone (TSH) measurement (units/volume)Ordered By: Kirby Burrows on 03-08-2024 TSH Qn 1.74 uIU/mL 0.358-3.74 [facility] Thin prep Papanicolaou smear with manual screeningOrdered By: Kirby Burrows on 03-08-2024 Thin prep Papanicolaou smear with manual screening 0.91 ng/dL 0.76-1.46 [facility] Final Surgical Pathology Rep meena 01-31-2024 Final Surgical Pathology Report . Pathology Reports Accession: Collected Date/Time: Received Date/Time: Pathologist: [id number] 01/27/2024 14:58 EDT 01/28/2024 08:09 EDT ALLIE [...] All parts labelled with patient name and [id number] Received in formalin labeled sigmoid polyp is 1 melendez-brown tissue fragment measuring 2.9 x 1.5 x 1.3 cm. Margin inked and specimen dissected. TS-3 Liliana Cuellar, Grossing Superintendent Division/ Dr. Lam Lee, Pathologist Dictated by Liliana Cuellar MICROSCOPIC DESCRIPTION: The microscopic examination is performed, except in the case of Gross Only. Electronically Signed by Pathology Report verified by [facility] ALLIE BRAMBILA Sign out Date: 01/31/2024 11:19 Performing Lab: [facility], [address] [place] [address] Pathology Dept Disclaimer If ancillary studies were utilized, the following Laboratory Developed Test (LDT) disclaimer will apply: Under CLIA requirements, [facility] is qualified to perform high complexity testing. For all ancillary stains, positive and negative controls stain appropriately. Performance characteristics of immunohistochemical and chromogenic in-situ hybridization tests have been determined by [facility]. These tests are used for clinical purposes, They should not be regarded as investigational or for research. Normal [facility] ([place]) Laboratory - Microbiology an d Antimicrobial susceptibilityon 12-29-2023 SARS-CoV-2 (COVID-19) RNA NENA+probe Ql (Unsp spec) Not detected [facility] No Panel Informationon 12-29 Influenza Types A,B Rapid (Clinic) Pos FLU A &Neg FLU B [facility] - Chemistry and C hemistry - challengeOrdered By: Kirby Burrows on 10-13-2023 Free T4 [Mass/Vol] 0.87 ng/dL 0.76-1.46 [facility] No Panel InformationOrdered By: Kirby Burrows on 10-13-2023 Free Triiodothyronine (T3) pg/dL 2.1 pg/mL 2.18-3.98 [facility] Thyroid Stimulating Hormone (TSH) 2.69 uIU/mL 0.358-3.74 [facility] - Chemistry and C hemistry - challengeOrdered By: Kirby Burrows on 09-10-2023 Free T4 [Mass/Vol] 0.84 ng/dL 0.76-1.46 [facility] No Panel InformationOrdered By: Kirby Burrows on 09-10-2023 Free Triiodothyronine (T3) pg/dL 2.1 pg/mL 2.18-3.98 [facility] Thyroid Stimulating Hormone (TSH) 2.93 uIU/mL 0.358-3.74 [facility] - Chemistry and C hemistry - challengeOrdered By: Dr. Burrows on 04-08-2023 Free T4 [Mass/Vol] 1.09 ng/dL 0.76-1.46 [facility] No Panel InformationOrdered By: Dr. Burrows on 04-08-2023 Free Triiodothyronine (T3) pg/dL 3.2 pg/mL 2.18-3.98 [facility] Thyroid Stimulating Hormone (TSH) 0.01 uIU/mL 0.358-3.74 [facility] - Chemistry and C hemistry - challengeOrdered By: Dr. Burrows on 03-05-2023 Free T4 [Mass/Vol] 1.33 ng/dL 0.76-1.46 [facility] No Panel InformationOrdered By: Dr. Burrows on 03-05-2023 Free Triiodothyronine (T3) pg/dL 4.0 pg/mL 2.18-3.98 [facility] Thyroid Stimulating Hormone (TSH) < 0.01 uIU/mL 0.358-3.74 [facility] - Chemistry and C hemistry - challengeOrdered By: Dr. Burrows on 10-15-2022 Cobalamin (Vitamin B12) [Mass/Vol] 419 pg/mL 211-911 [facility] - Chemistry and C hemistry - challengeOrdered By: Zuleyma Shaffer on 10-15-2022 Free T4 [Mass/Vol] 0.84 ng/dL 0.76-1.46 [facility] No Panel InformationOrdered By: Zuleyma Shaffer on 10-15-2022 Free Triiodothyronine (T3) pg/dL 2.6 pg/mL 2.18-3.98 [facility] Thyroid Stimulating Hormone (TSH) 0.26 uIU/mL 0.358-3.74 [facility] - Chemistry and C hemistry - challengeOrdered By: Dr. Burrows on 09-22-2022 Free T4 [Mass/Vol] 0.98 ng/dL 0.76-1.46 [facility] No Panel InformationOrdered By: Dr. Burrows on 09-22-2022 Free Triiodothyronine (T3) pg/dL 3.1 pg/mL 2.18-3.98 [facility] Thyroid Stimulating Hormone (TSH) 0.02 uIU/mL 0.358-3.74 [facility] Laboratory - Chemistry and C hemistry - challengeOrdered By: Dr. Burrows on 09-02-2022 Free T4 [Mass/Vol] 1.11 ng/dL 0.76-1.46 [facility] No Panel InformationOrdered By: Dr. Burrows on 09-02-2022 Free Triiodothyronine (T3) pg/dL 3.3 pg/mL 2.18-3.98 [facility] Thyroid Stimulating Hormone (TSH) 0.01 uIU/mL 0.358-3.74 [facility] - Chemistry and C hemistry - challengeon 07-08-2022 Free T4 [Mass/Vol] 1.07 ng/dL 0.76-1.46 [facility] Work Phone: No Panel Informationon 07-08 Free Triiodothyronine (T3) pg/dL 3.2 pg/mL 2.18-3.98 [facility] Work Phone: Thyroid Stimulating Hormone (TSH) 0.19 uIU/mL 0.358-3.74 [facility] Work Phone: Initial Visit (Gastroenterol ogy)on [...] prior GI records from Dr. Patricio with [facility]. 2. Obtain tTG IgA CBC, CMP, ferritin, and vitamin profile. 3. Continue strict gluten free diet. 4. Begin using one heaping tablespoon of Benefiber in 8 ounces of water daily by mixing and drinking quickly. This product is [id number]. 5. Discussed antispasmodic trial pending the above. [...] telehealth visit. Celiac disease History of Present Ugebixe77-uukz-nod female seen today via virtual visit as a new patient regarding a history of celiac disease diagnosed in spring 2013. She was a prior patient of Dr[facility]. She states she had undergone EGD [...] follows up with Dr. Howard Burrows with [facility] for management of her Graves' disease. [...] Recorded: 14Nov2020 11:58AM Height5 ft 11 in Itecyb559 lb BMI Qnpzhpgudh26.32 BSA Calculated1.92 [id number] Physical Exam Patient is alert and oriented and in no apparent distress. Patient is speaking in complete sentences without conversational dyspnea. No observed pallor or jaundice. Signatures Electronically signed by : Jillian Kraus PA-C; Nov 14 2020 12:35PM EST (Author) Normal [facility] PROGRESSon 09-28-2019 PROGRESS HNO ID: [id number] Author: Joy Curranocco Service: ? Author Type: Physician Type: Progress Notes Filed: 09/28/2019 7:32 PM Note Text: Note: The following is an abstracted note of the either a previous or a new History of Present Illness. This is in prep for an up-coming appointment. This is not a pcqa-jt-qwmn encounter. Previous history as follows: Thyroid gland disease: Previous history: 05/2015: TSH 0.600 (0.358-3.740 uIU/mL), at [facility] lab, 07/2018: Around this time she started [...] 10/2018: Vitamin B-12 1058 (193-986 pg/mL), Normal [facility] CNOVon 06-01-2019 OV Office Visit (THIEN ) RITIKA VEGA ([id number]) 1985 F Date Time Provider Department 06/01/19 1:30 PM JOY GALEANO During your visit today, we recorded the following information about you: Pulse Blood pressure Weight Height 59/minute 113/74 77.6 kg 1.778 m Joy Galeano MD 06/01/2019 6:24 PM Addendum . [facility] General Endocrinology - [place] [address], [address] [place], [place] [address] [place] [address] General Endocrinology - [address], [address] [place], [place] [address] Patient's name: Ritika Vega Patient's date of : 1985 Date of encounter: 06/01/2019 History of present illness: Ritika Vega is a 33 year old female who presents for follow up of an endocrinology issue. Previous history: 05/2015: TSH 0.600 (0.358-3.740 uIU/mL), at [facility] lab, 07/2018: Around this time she started [...] medications I prescribe (or may prescribe) is: [facility] Review of Systems Constitutional: Negative for chills, [...] Laterality Date - EGD Upper endoscoscopy: Dr. 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 Social Needs Financial resource strain: [...] file Gets together: Not on file Attends oriental orthodox service: Not on file Active member of [...] sending Rx. She will contact me via [employer] with new pharmacy information (next week, when [...] will send her a message, in the [employer] portal. She wanted to wait on Rx [...] those symptoms occur. Referring Provider: JOY GALEANO [[id number]] Allergies As of Date: 06/01/2019 (No Known Allergies) Date Reviewed: 06/01/2019 Reviewed by: Joy Galeano - Fully Assessed Reason for Visit: Follow Up [171] Thyroid Problem [110] Primary Visit Diagnosis:Graves disease [E05.00] Other Visit Diagnoses:Thyrotoxicos is without thyroid storm, unspecified thyrotoxicosis type [E05.90] Autoimmune disease (HCC) [D89.89] Celiac disease [K90.0] Taking medication for chronic disease [R69] Order(s):TSH BLD [SQTSH] Order #: [id number] FUTURE T4 FREE/FREE THYROX [SQFT4] Order #: [id number] FUTURE T3 FREE BLD [SQFREET3] Order #: [id number] FUTURE WBC W DIFF [1656921] Order #: [id number] FUTURE HEPATIC FUNCTION PNL [SQHFP] Order #: [id number] FUTURE Prescriptions as of 06/01/2019 Sig: RHINOCORT [...] by JOY GALEANO MD on 06/01/19 Normal [facility] Free T3on 06-01-2019 Free T3 [Mass/Vol] 4.1 pg/mL High 2.2-4.0 [facility] Comment on above: Performed By: #### F T4 #### [place] [address] Free Thyroxineon 06-01-2019 Free T4 [Mass/Vol] 1.39 ng/dL Normal 0.76-1.46 [facility] Comment on above: Performed By: #### F T4 #### [facility] [address] [place], [place] [address] Hepatic Panelon 06-01-2019 ALP [Catalytic activity/Vol] 62 U/L Normal 45-117 [facility] Comment on above: Performed By: #### F T4 #### [facility] [address] [place], [place] [address] Bilirubin [Mass/Vol] 0.5 mg/dL Normal 0.2-1.0 [facility] Comment on above: Performed By: #### F T4 #### [facility] [address] [place], [place] [address] Protein [Mass/Vol] 6.8 g/dL Normal 6.4-8.2 [facility] Comment on above: Performed By: #### F T4 #### [facility] [address] [place] [address] AST [Catalytic activity/Vol] 18 U/L Normal 15-37 [facility] Comment on above: Performed By: #### F T4 #### [facility] [address] [place] [address] ALT [Catalytic activity/Vol] 31 U/L Normal 12-78 [facility] Comment on above: Performed By: #### F T4 #### [facility] [address] [place], [place] [address] Bilirubin [Mass/Vol] 0.14 mg/dL Normal 0.00-0.20 [facility] Comment on above: Performed By: #### F T4 #### [facility] [address] [place] [address] Albumin [Mass/Vol] 3.9 g/dL Normal 3.4-5.0 [facility] Comment on above: Performed By: #### F T4 #### [facility] [address] [place] [address] PROGRESSon 06-01-2019 PROGRESS HNO ID: [id number] Author: Joy Galeano Service: ? Author Type: Physician Type: Progress Notes Filed: 06/01/2019 6:24 PM Note Text: . [facility] Endocrinology - [address], [address] [place], [place] [address] [place] [address] Endocrinology - [address], [address] [place], [place] [address] Patient's name: Ritika Vega Patient's date of : 1985 Date of encounter: 06/01/2019 History of present illness: Ritika Vega is a 33 year old female who presents for follow up of an endocrinology issue. Previous history: 05/2015: TSH 0.600 (0.358-3.740 uIU/mL), at [facility] lab, 07/2018: Around this time she started [...] medications I prescribe (or may prescribe) is: [facility] Review of Systems Constitutional: Negative for chills, [...] Laterality Date - EGD Upper endoscoscopy: Dr. 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 Social Needs Financial resource strain: [...] file Gets together: Not on file Attends oriental orthodox service: Not on file Active member of [...] sending Rx. She will contact me via [employer] with new pharmacy information (next week, when [...] will send her a message, in the [employer] portal. She wanted to wait on Rx till she knows what her new plan requires. Joy Galeano MD 06/01/2019 18:24:32 Normal [facility] PROGRESS HNO ID: [id number] Author: Joy Galeano Service: ? Author Type: Physician Type: Progress Notes Filed: 06/01/2019 6:35 AM Note Text: Note: The following is an abstracted note of the either a previous or a new History of Present Illness. This is in prep for an up-coming appointment. This is not a duhe-cf-ptnz encounter. Previous history as follows: Previous history: 05/2015: TSH 0.600 (0.358-3.740 uIU/mL), at [facility] lab, 07/2018: Around this time she started [...] 10/2018: Vitamin B-12 1058 (193-986 pg/mL), Normal [facility] TSH, 3rd generationon 2018 TSH, 3rd generation 0.006 uIU/mL Low 0.358-3.740 [facility] Comment on above: Performed By: #### F T4 #### [place] [address] WBC with Differentialon 05-09 Abs Immature Grans 0.01 thou/cmm Normal 0.00-0.05 [facility] Comment on above: Performed By: #### F T4 #### [place] [address] Abs Neut (ANC) 2.51 thou/cmm Normal 1.56-6.13 [facility] Comment on above: Performed By: #### F T4 #### [place] [address] Abs. Baso 0.05 thou/cmm Normal 0.01-0.08 [facility] Comment on above: Performed By: #### F T4 #### [place] [address] Abs. Gonzales 0.42 thou/cmm Normal 0.27-0.70 [facility] Comment on above: Performed By: #### F T4 #### [place] [address] Basophils/100 WBC (Bld) 0.9 % Normal [facility] Comment on above: Performed By: #### F T4 #### [facility] [address] [place], [place] [address] Eosinophils (Bld) [#/Vol] 0.06 thou/cmm Normal 0.00-0.31 [facility] Comment on above: Performed By: #### F T4 #### [facility] [address] [place], [place] [address] Eosinophils/100 WBC (Bld) 1.0 % Normal [facility] Comment on above: Performed By: #### F T4 #### [facility] [address] [place], [place] [address] Immature Grans 0.20 % Normal [facility] Comment on above: Performed By: #### F T4 #### [facility] [address] [place], [place] [address] Lymphocytes (Bld) [#/Vol] 2.68 thou/cmm Normal 1.18-3.74 [facility] Comment on above: Performed By: #### F T4 #### [facility] [address] [place], [place] [address] Lymphocytes/100 WBC (Bld) 46.8 % Normal [facility] Comment on above: Performed By: #### F T4 #### [facility] [address] [place], [place] [address] Monocytes/100 WBC (Bld) 7.3 % Normal [facility] Comment on above: Performed By: #### F T4 #### [facility] [address] [place], [place] [address] Seg Neutrophil 43.8 % Normal [facility] Comment on above: Performed By: #### F T4 #### [facility] [address] [place], [place] [address] WBC (Bld) [#/Vol] 5.73 thou/cmm Normal 3.98-10.04 [facility] Comment on above: Performed By: #### F T4 #### [facility] [address] [place], [place] [address] CNOVon 04-17-2019 CNOV Office Visit ([facility]) RITIKA VEGA ([id number]) 1985 F Date Time Provider Department 04/17/19 2:00 PM SANDY DAWN [facility] During your visit today, we recorded [...] 1.18 - 3.74 thou/cmm Final - Abs. Gonzales 03/07/2019 0.42 0.27 - 0.70 thou/cmm Final [...] Laterality Date - EGD Upper endoscoscopy: Dr. 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 Tobacco Use Smoking status: Never [...] 242.00, ICD10: E05.00 Continue methimazole, follows with reception, next visit May 2019 3. Celiac disease - ICD9: 579.0, ICD10: K90.0 Stable, continue gluten free diet 4. Need for Tdap vaccination - ICD9: V06.1, ICD10: Z23 - TDAP VACCINE AGE 7+ IM Sandy Dawn DO Referring Provider: SANDY DAWN [[id number]] Allergies As of Date: 04/17/2019 (No Known Allergies) Date Reviewed: 03/07/2019 Reviewed by: Joy Galeano - Fully Assessed Reason for Visit: Physical [83] Primary Visit Diagnosis:Encounter for general adult medical examination with abnormal findings [Z00.01] Other Visit Diagnoses:Graves disease [E05.00] Celiac disease [K90.0] Need for Tdap vaccination [Z23] Order(s):TDAP VACCINE AGE 7+ IM [[id number]] Order #: [id number] Prescriptions as of 04/17/2019 Sig: RHINOCORT NASAL [...] Status:Closed by SANDY DAWN DO on 04/17/19 [facility] PROGRESSon 04-17-2019 PROGRESS HNO ID: [id number] Author: Sandy Dawn Service: ? Author Type: [...] 1.18 - 3.74 thou/cmm Final - Abs. Gonzales 03/07/2019 0.42 0.27 - 0.70 thou/cmm Final [...] Laterality Date - EGD Upper endoscoscopy: Dr. 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 Celiac disease - ICD9: 579.0, ICD10: K90.0 Stable, continue gluten free diet 4. Need for Tdap vaccination - ICD9: V06.1, ICD10: Z23 - TDAP VACCINE AGE 7+ IM Sandy Dawn, DO Normal [facility] CNOVon 03-07-2019 CNOV Office Visit ([facility] ) RITIKA VEGA ([id number]) 1985 F Date Time Provider Department 03/07/19 9:30 AM JOY GALEANO During your visit today, we recorded the following information about you: Pulse Blood pressure Weight Height 81/minute 106/70 74.8 kg 1.803 m Joy Galeano MD 03/08/2019 8:11 AM Addendum . [facility] Endocrinology - [address], [address] [place], [place] [address] [place] [address] Endocrinology - [address], [address] [place], [place] [address] Patient's name: Ritika Vega Patient's date of : 1985 Date of encounter: 03/07/2019 History of present illness: Ritika Vega is a 33 year old female who presents for follow up of an endocrinology issue. Previous history: 05/2015: TSH 0.600 (0.358-3.740 uIU/mL), at [facility] lab, 07/2018: Around this time she started [...] While trying to cut weight, training. 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 No [...] medications I prescribe (or may prescribe) is: [facility] Review of Systems Constitutional: Negative for chills, [...] Laterality Date - EGD Upper endoscoscopy: Dr. 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 Tobacco Use Smoking status: Never [...] 90 tablet Rfl: 1 Norethindrone Acet-Ethinyl Est (,) 1-20 mg-mcg per [...] medications I prescribe (or may prescribe) is: [facility]. - TSH BLD; Future - T4 [...] will send her a message, in the [employer] portal. Joy Galeano MD 03/08/2019 08:11:44 Joy [...] those symptoms occur. 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, unspecified thyrotoxicosis type [E05.90] Autoimmune disease (HCC) [D89.89] Celiac disease [K90.0] Taking medication for chronic disease [R69] Order(s):TSH BLD [SQTSH] Order #: [id number] FUTURE T4 FREE/FREE THYROX [SQFT4] Order #: [id number] FUTURE T3 FREE BLD [SQFREET3] Order #: [id number] FUTURE WBC W DIFF [7221241] Order #: [id number] FUTURE HEPATIC FUNCTION PNL [SQHFP] Order #: [id number] FUTURE Prescriptions as of 03/07/2019 Sig: TRIAMCINOLONE [...] by JOY GALEANO MD on 03/07/19 Normal [facility] Free T3on 03-07-2019 Free T3 [Mass/Vol] 3.9 pg/mL Normal 2.2-4.0 [facility] Comment on above: Performed By: #### F T4 #### [facility] [address] [place], [place] [address] Free Thyroxineon 03-07-2019 Free T4 [Mass/Vol] 1.32 ng/dL Normal 0.76-1.46 [facility] Comment on above: Performed By: #### F T4 #### [facility] [address] [place], [place] [address] Hepatic Panelon 03-07-2019 ALP [Catalytic activity/Vol] 90 U/L Normal 46-116 [facility] Comment on above: Performed By: #### F T4 #### [facility] [address] [place] [address] Bilirubin [Mass/Vol] 0.15 mg/dL Normal 0.00-0.20 [facility] Comment on above: Performed By: #### F T4 #### [facility] [address] [place] [address] Protein [Mass/Vol] 7.3 g/dL Normal 6.4-8.2 [facility] Comment on above: Performed By: #### F T4 #### [facility] [address] [place] [address] Bilirubin [Mass/Vol] 0.5 mg/dL Normal 0.2-1.0 [facility] Comment on above: Performed By: #### F T4 #### [facility] [address] [place] [address] ALT [Catalytic activity/Vol] 50 U/L Normal 12-78 [facility] Comment on above: Performed By: #### F T4 #### [facility] [address] [place] [address] AST [Catalytic activity/Vol] 22 U/L Normal 9-37 [facility] Comment on above: Performed By: #### F T4 #### [facility] [address] [place] [address] Albumin [Mass/Vol] 4.0 g/dL Normal 3.4-5.0 [facility] Comment on above: Performed By: #### F T4 #### [place] [address] PROGRESSon 03-07-2019 PROGRESS HNO ID: [id number] Author: Joy Galeano Service: ? Author Type: Physician Type: Progress Notes Filed: 03/08/2019 8:11 AM Note Text: . [facility] Endocrinology - [place] [address], [address] [place], [place] [address] [facility] Endocrinology - [address], [address] [place], [place] [address] Patient's name: Ritika Vega Patient's date of : 1985 Date of encounter: 03/07/2019 History of present illness: Ritika Vega is a 33 year old female who presents for follow up of an endocrinology issue. Previous history: 05/2015: TSH 0.600 (0.358-3.740 uIU/mL), at [facility] lab, 07/2018: Around this time she started [...] While trying to cut weight, training. 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 No [...] medications I prescribe (or may prescribe) is: [facility] Review of Systems Constitutional: Negative for chills, [...] Laterality Date - EGD Upper endoscoscopy: Dr. 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 Tobacco Use Smoking status: Never [...] 90 tablet Rfl: 1 Norethindrone Acet-Ethinyl Est (,) 1-20 mg-mcg per [...] medications I prescribe (or may prescribe) is: [facility]. - TSH BLD; Future - T4 [...] will send her a message, in the [employer] portal. Joy Galeano MD 03/08/2019 08:11:44 Normal [facility] TSH, 3rd generationon 2018 TSH, 3rd generation <0.005 Low 0.358-3.740 [facility] Comment on above: Performed By: #### F T4 #### [facility] [address] [place] [address] WBC with Differentialon 02-08 Abs Immature Grans 0.03 thou/cmm Normal 0.00-0.05 [facility] Comment on above: Performed By: #### M AG #### [place] [address] Abs Neut (ANC) 4.48 thou/cmm Normal 1.56-6.13 [facility] Comment on above: Performed By: #### M AG #### [place] [address] Abs. Baso 0.04 thou/cmm Normal 0.01-0.08 [facility] Comment on above: Performed By: #### M AG #### [place] [address] Abs. Gonzales 0.42 thou/cmm Normal 0.27-0.70 [facility] Comment on above: Performed By: #### M AG #### [place] [address] Basophils/100 WBC (Bld) 0.6 % Normal [facility] Comment on above: Performed By: #### M AG #### [address] [address] Eosinophils (Bld) [#/Vol] 0.04 thou/cmm Normal 0.00-0.31 [facility] Comment on above: Performed By: #### M AG #### [place] [address] Eosinophils/100 WBC (Bld) 0.6 % Normal [facility] Comment on above: Performed By: #### M AG #### [place] [address] Immature Grans 0.40 % Normal [facility] Comment on above: Performed By: #### M AG #### [facility] [address] [place], [place] [address] Lymphocytes (Bld) [#/Vol] 1.67 thou/cmm Normal 1.18-3.74 [facility] Comment on above: Performed By: #### M AG #### [facility] [address] [place], [place] [address] Lymphocytes/100 WBC (Bld) 25.0 % Normal [facility] Comment on above: Performed By: #### M AG #### [facility] [address] [place], [place] [address] Monocytes/100 WBC (Bld) 6.3 % Normal [facility] Comment on above: Performed By: #### M AG #### [facility] [address] [place], [place] [address] Seg Neutrophil 67.1 % Normal [facility] Comment on above: Performed By: #### M AG #### [facility] [address] [place], [place] [address] WBC (Bld) [#/Vol] 6.67 thou/cmm Normal 3.98-10.04 [facility] Comment on above: Performed By: #### M AG #### [facility] [address] [place], [place] [address] PROGRESSon 03-03-2019 PROGRESS HNO ID: [id number] Author: Joy Galeano Service: ? Author Type: Physician Type: Progress Notes Filed: 03/03/2019 1:09 PM Note Text: Note: The following is an abstracted note of the either a previous or a new History of Present Illness. This is in prep for an up-coming appointment. This is not a jrly-zx-pvrg encounter. Previous history as follows: Previous history: 05/2015: TSH 0.600 (0.358-3.740 uIU/mL), at [facility] lab, 07/2018: Around this time she started [...] 10/2018: Vitamin B-12 1058 (193-986 pg/mL), Normal [facility] CNOVon 02-28-2019 CNOV Office Visit ([facility]) RITIKA VEGA ([id number]) 1985 F Date Time Provider Department 02/28/19 [...] updated today in the History tab of [employer]. Current Medications and allergies reviewed. PAST MEDICAL HISTORY Diagnosis Date - B12 deficiency - Celiac disease Biopsy proven - Eating disorder history of age [age]. purging then restricting/ compulsive exercising - Graves disease 10/2018 PAST SURGICAL HISTORY Procedure Laterality Date - EGD Upper endoscoscopy: Dr. 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 Author Type: [...] updated today in the History tab of [employer]. Current Medications and allergies reviewed. PAST MEDICAL HISTORY Diagnosis Date - B12 deficiency - Celiac disease Biopsy proven - Eating disorder history of age [age]. purging then restricting/ compulsive exercising - Graves disease 10/2018 PAST SURGICAL HISTORY Procedure Laterality Date - EGD Upper endoscoscopy: Dr. GriffithLomc-Eujqh-Arujmof Celiac Disease - ELBOW SURGERY HX 2008 [...] mouth once daily. 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 Tobacco Use Smoking status: Never [...] persist or worsen. Mio Little MD Normal [facility] Free T3on 12-08-2018 Free T3 [Mass/Vol] 4.5 pg/mL High 2.2-4.0 [facility] Comment on above: Performed By: #### M AG #### [place] [address] Free Thyroxineon 12-08-2018 Free T4 [Mass/Vol] 1.70 ng/dL High 0.76-1.46 [facility] Comment on above: Performed By: #### M AG #### [place] [id number] Hepatic Panelon 12-08-2018 ALP [Catalytic activity/Vol] 69 U/L Normal 46-116 [facility] Comment on above: Performed By: #### M AG #### [facility] [address] [place], [place] [address] ALT [Catalytic activity/Vol] 43 U/L Normal 12-78 [facility] Comment on above: Performed By: #### M AG #### [facility] [address] [place], [place] [address] Bilirubin [Mass/Vol] 0.12 mg/dL Normal 0.00-0.20 [facility] Comment on above: Performed By: #### M AG #### [facility] [address] [place], [place] [address] Protein [Mass/Vol] 6.5 g/dL Normal 6.4-8.2 [facility] Comment on above: Performed By: #### M AG #### [address] [address] Bilirubin [Mass/Vol] 0.4 mg/dL Normal 0.2-1.0 [facility] Comment on above: Performed By: #### M AG #### [facility] [address] [place], [place] [address] AST [Catalytic activity/Vol] 22 U/L Normal 9-37 [facility] Comment on above: Performed By: #### M AG #### [facility] [address] [place], [place] [address] Albumin [Mass/Vol] 3.7 g/dL Normal 3.4-5.0 [facility] Comment on above: Performed By: #### M AG #### [facility] [address] [place], [place] [address] TSH, 3rd generationon 2018 TSH, 3rd generation <0.005 Low 0.358-3.740 [facility] Comment on above: Performed By: #### M AG #### [facility] [address] [place], [place] [address] WBC with Differentialon 11-10 Abs Immature Grans 0.02 thou/cmm Normal 0.00-0.05 [facility] Comment on above: Performed By: #### M AG #### [facility] [address] [place] [address] Abs. Baso 0.02 thou/cmm Normal 0.01-0.08 [facility] Comment on above: Performed By: #### M AG #### [facility] [address] [place] [address] Abs. Gonzales 0.37 thou/cmm Normal 0.27-0.70 [facility] Comment on above: Performed By: #### M AG #### [facility] [address] [place] [address] Abs. Neut (ANC) 3.38 thou/cmm Normal 1.56-6.13 [facility] Comment on above: Performed By: #### M AG #### [facility] [address] [place] [address] Basophils/100 WBC (Bld) 0.4 % Normal [facility] Comment on above: Performed By: #### M AG #### [facility] [address] [place] [address] Eosinophils (Bld) [#/Vol] 0.03 thou/cmm Normal 0.00-0.31 [facility] Comment on above: Performed By: #### M AG #### [facility] [address] [place] [address] Eosinophils/100 WBC (Bld) 0.6 % Normal [facility] Comment on above: Performed By: #### M AG #### [place] [address] Immature Grans 0.40 % Normal [facility] Comment on above: Performed By: #### M AG #### [facility] [address] [place] [address] Lymphocytes (Bld) [#/Vol] 0.98 thou/cmm Low 1.18-3.74 [facility] Comment on above: Performed By: #### M AG #### [address] [address] Lymphocytes/100 WBC (Bld) 20.4 % Normal [facility] Comment on above: Performed By: #### M AG #### [facility] [address] [place], [place] [address] Monocytes/100 WBC (Bld) 7.7 % Normal [facility] Comment on above: Performed By: #### M AG #### [facility] [address] [place], [place] [address] Seg Neutrophil 70.5 % Normal [facility] Comment on above: Performed By: #### M AG #### [facility] [address] [place], [place] [address] WBC (Bld) [#/Vol] 4.80 thou/cmm Normal 3.98-10.04 [facility] Comment on above: Performed By: #### M AG #### [facility] [address] [place], [place] [address] CNOVon 12-06-2018 CNOV Office Visit ([facility] ) VEGARITIKA SHEPPARD ([id number]) 1985 F Date Time Provider Department 12/06/18 9:30 AM JOY GALEANO During your visit today, we recorded the following information about you: Pulse Blood pressure Weight Height 66/minute 107/71 73.1 kg 1.803 m Joy Galeano MD 12/08/2018 5:17 PM Addendum . [facility] Endocrinology - [place] [address], [address] General Endocrinology - [address], [address] [place], [place] [address] Patient's name: Ritika Vega Patient's date of : 1985 Date of encounter: 12/06/2018 History of present illness: Ritika Vega is a 33 year old female who presents for follow up of an endocrinology issue. Previous history: 05/2015: TSH 0.600 (0.358-3.740 uIU/mL), at [facility] lab, 07/2018: Around this time she started [...] medications [facility]or may prescribe) [facility] [place] [address] [phone]- [phone] Portal to Registered [facility] Sites Review of Systems Constitutional: Positive [...] Laterality Date - EGD Upper endoscoscopy: Dr. 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. Joy Galeano MD 12/06/2018 10:01:39 Addendum to [...] will send her a message, in the [employer] portal. Joy Galeano MD 12/08/2018 17:17:20 Joy [...] disease [R69] Order(s):TSH BLD [SQTSH] Order #: [id number] FUTURE T4 FREE/FREE THYROX [SQFT4] Order #: [id number] FUTURE T3 FREE BLD [SQFREET3] Order #: [id number] FUTURE WBC W DIFF [5005430] Order #: [id number] FUTURE HEPATIC FUNCTION PNL [SQHFP] Order #: [id number] FUTURE Prescriptions as of 12/06/2018 Sig: BIOTIN [...] [facility] 12-06-2018 PROGRESS HNO ID: [id number] Author: Joy Galeano Service: (none) Author Type: Physician Type: Progress Notes Filed: 12/08/2018 5:17 PM Note Text: . [facility] End[facility]ology - [place] [address], [address] [place] [id number] [facility] Endocrinology - [address], [address] [place] [address] Patient's name: Ritika Vega Patient's date of : 1985 Date of encounter: 12/06/2018 History of present illness: Ritika Vega is a 33 year old female who presents for follow up of an endocrinology issue. Previous history: 05/2015: TSH 0.600 (0.358-3.740 uIU/mL), at [facility] lab, 07/2018: Around this time she started [...] I prescribe (or may prescribe) is: [facility] [place] [address] - [address]??- [phone] Portal to Registered [facility] Sites Review of Systems Constitutional: Positive [...] Laterality Date - EGD Upper endoscoscopy: Dr. 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 Joy Galeano MD 12/06/2018 10:01:39 Addendum [...] will send her a message, in the [employer] portal. Joy Galeano MD 12/08/2018 17:17:20 Normal [facility] PROGRESSon 12-01-2018 PROGRESS HNO ID: [id number] Author: Joy Galeano Service: (none) Author Type: Physician Type: Progress Notes Filed: 12/01/2018 5:27 PM Note Text: Note: The following is an abstracted note of the previous History of Present Illness, in prep for an up-coming appointment. This is not a kofa-dp-eqzc encounter. Previous history as follows: Previous history: 05/2015: TSH 0.600 (0.358-3.740 uIU/mL), at [facility] lab, 07/2018: Around this time she started [...] pg/mL), But, currently ok on oral. Normal [facility] Hepatic Panelon 11-24-2018 Bilirubin [Mass/Vol] 0.12 mg/dL Normal 0.00-0.20 [facility] Comment on above: Performed By: #### M AG #### [facility] [address] [place], [place] [address] ALP [Catalytic activity/Vol] 59 U/L Normal 46-116 [facility] Comment on above: Performed By: #### M AG #### [facility] [address] [place], [place] [address] Protein [Mass/Vol] 6.4 g/dL Normal 6.4-8.2 [facility] Comment on above: Performed By: #### M AG #### [facility] [address] [place], [place] [address] ALT [Catalytic activity/Vol] 46 U/L Normal 12-78 [facility] Comment on above: Performed By: #### M AG #### [facility] [address] [place], [place] [address] Bilirubin [Mass/Vol] 0.4 mg/dL Normal 0.2-1.0 [facility] Comment on above: Performed By: #### M AG #### [facility] [address] [place], [place] [address] AST [Catalytic activity/Vol] 19 U/L Normal 9-37 [facility] Comment on above: Performed By: #### M AG #### [facility] [address] [place], [place] [address] Albumin [Mass/Vol] 3.6 g/dL Normal 3.4-5.0 [facility] Comment on above: Performed By: #### M AG #### [facility] [address] [place] [address] TSH Receptor Antibodyon 10-09 TSH Receptor Antibody SEE BELOW Normal [facility] Comment on above: Result Comment: TSI 481 H <150 % Normal This test was developed and its performance characteristics determined by [facility] [place] ([facility]). It has not been cleared or approved by the FDA. [facility] is regulated under CLIA as qualified to perform high-complexity testing. This test is used for clinical purposes. It should not be regarded as investigational or for research. TBI 13.9 H <1.0 U/L This test was developed and its performance characteristics determined by [facility] [place] ([facility]). It has not been cleared or approved by the FDA. [facility] is regulated under CLIA as qualified to perform high-complexity testing. This test is used for clinical purposes. It should not be regarded as investigational or for research. Performing Laboratory: [facility] [address] [place] [address] Performed By: #### M AG #### [facility] [address] [place], [place] [address] CNOVon 10-25-2018 CNOV Office Visit (ENAGST ) RITIKA VEGA ([id number]) 1985 F Date Time Provider Department 10/25/18 3:15 PM JOY GALEANO During your visit today, we recorded the following information about you: Pulse Blood pressure Weight Height 52/minute 104/67 71.3 kg 1.8 m Joy Galeano MD 11/04/2018 11:49 AM Addendum . [facility] Endocrinology [address], [address]ocrinology [address], [address] [place] [address] Patient's name: Ritika Vega Patient's date of : 1985 Date of encounter: 10/25/2018 History of present illness: Ritika Vega is a 32 year old female who presents for an evaluation of an endocrine issue. She was referred to me by Dr Jim Dawn for an evaluation of thyrotoxicosis. 05/2015: TSH 0.600 (0.358-3.740 uIU/mL), at [facility] lab, 07/2018: Around this time she started [...] pending. Initial consultation with me. 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 Of note, known heart murmur. Noted the palpitations for few months. Saw orthopedic recently, noted low BP. Then saw Primary Care Physician, as above. Not using any gspu-evn-dczimcc Biotin supplements, or mulivitamins with large doses [...] Laterality Date - EGD Upper endoscoscopy: Dr. GriffithMaaw-Qfxiu-Loriomy Celiac Disease - ELBOW SURGERY HX 2007 [...] once daily. Disp: Rfl: Norethindrone Acet-Ethinyl Est ([facility],) 1-20 mg-mcg per tablet Take 1 tablet [...] 30 day supply for initial Rx to: [facility]/pharmacy #[id number] [place] [address] - [address]??- [phone] ) 2. Celiac disease On gluten free [...] will send her a message, in the [employer] portal. Joy Galeano MD 11/04/2018 11:49:11 Joy [...] those symptoms occur. Referring Provider: SANDY DAWN [[id number]] Allergies As of Date: 10/25/2018 (No Known [...] MD on 10/25/18 [facility] Tee 10-25-2018 [facility] Telephone ([facility]) RITIKA VEGA ([id number]) 1985 F Date Time Provider Department 10/25/18 SANDY DAWN [facility] During your visit today, we recorded the following information about you: Celio Mary Second Operator 10/25/2018 10:56 AM Signed Order placed via [employer] online referrals portal for consult to endocrinology. Referral # [id number] Celio Mary Second [employer] 11/17/2018 2:03 PM Signed Good Morning, This e-mail is a confirmation that your patient listed below has been scheduled for an appointment with [facility] should you have any questions or concerns regarding this appointment please contact the appropriate office directly: Medical Records (Please Note) x Medical Records Are Not Required: Referring Office AND Specialist Are Both On [facility]. Medical Records Are Required: Fax Appropriate Records Including: Order, Last Office Note, AND Any Necessary Imaging/Labs/Etc. To: Additional Office Location Information AND Phone Numbers [facility] [facility] ? [facility] [place] ? [address], [address] [address] ? X [employer] ? [employer] [place], [place] ? [address] [place], [place] [address] ? Allergies As of Date: 10/25/2018 (No [...] Encounter Status:Closed by CELIO PEREZ on 10/25/18 Normal [facility] PROGRESSon 10-25-2018 PROGRESS HNO ID: [id number] Author: Joy Galeano Service: (none) Author Type: Physician Type: Progress Notes Filed: 11/04/2018 11:49 AM Note Text: . [facility] Endocrinology - [address], [address] [place], [place] [address] [place] [address] Endocrinology - [address], [address] [place], [place] [address] Patient's name: Ritika Vega Patient's date of : 1985 Date of encounter: 10/25/2018 History of present illness: Ritika Vega is a 32 year old female who presents for an evaluation of an endocrine issue. She was referred to me by Dr Jim Dawn for an evaluation of thyrotoxicosis. 05/2015: TSH 0.600 (0.358-3.740 uIU/mL), at [facility] lab, 07/2018: Around this time she started [...] pending. Initial consultation with me. 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 Of note, known heart murmur. Noted the palpitations for few months. Saw orthopedic recently, noted low BP. Then saw Primary Care Physician, as above. Not using any bwvq-tct-cwziupv Biotin supplements, or mulivitamins with large doses [...] Laterality Date - EGD Upper endoscoscopy: Dr. Mmjf-Rpgdh-Dhlhhzk Celiac Disease - ELBOW SURGERY HX 2008 [...] once daily. Disp: Rfl: Norethindrone Acet-Ethinyl Est ([facility],) 1-20 mg-mcg per tablet Take 1 tablet [...] in 90 day supplies, once labs reviewed. [employer]. (But can do 30 day supply for initial Rx to: [facility]/pharmacy #[id number] [place] [address] - [address] [facility]??- [phone] ) 2. Celiac disease On gluten free [...] will send her a message, in the [employer] portal. Joy Galeano MD 11/04/2018 11:49:11 Normal [facility] T3, Totalon 10-19-2018 T3, Total 2.4 ng/mL High 0.6-1.8 [facility] Comment on above: Performed By: #### M AG #### [facility] [address] [place], [place] [address] Thyro. Peroxidase Abon 10-19 TPO Ab Qn 1568.3 IU/ml High 0.0-60.0 [facility] Comment on above: Performed By: #### M AG #### [facility] [address] [place], [place] [address] Free Thyroxineon 10-18-2018 Free T4 [Mass/Vol] 2.20 ng/dL High 0.76-1.46 [facility] Comment on above: Performed By: #### F T4 #### [facility] [address] [place], [place] [address] TSH, 3rd generationon 2017 TSH, 3rd generation <0.005 Low 0.358-3.740 [facility] Comment on above: Performed By: #### T SH3 #### [facility] [address] [place], [place] [address] Total 25-OH Vitamin Don 12-0 Total 25-OH Vitamin D 36.2 ng/mL Normal 30.0-100.0 [facility] Comment on above: Performed By: #### 2 5VD1 #### [facility] [address] [place], [place] [address] CNOVon 10-13-2018 CNOV Office Visit ([facility]) RITIKA VEGA ([id number]) 1985 F Date Time Provider Department 10/13/18 11:40 AM SANDY DAWN [facility] During your visit today, we recorded the following information about you: Temperature Pulse Respiration Blood pressure 96.4 degrees 56/minute 17/minute 102/64 Weight Height Last Period 70.8 kg 1.8 m 10/11/18 Sandy Dawn DO 10/13/2018 1:27 PM Signed Ritika Gary is a 32 year old female who presents with complaint of low BP, fatigue, palpitations, ear pressure HPI Went to disability benefits specialist to get a cortisone shot in [...] - PAST SURGICAL HISTORY OF UPPER ENDOSCOPY-DR GriffithOzfo-Gwtqp-Tzsmkec Celiac Disease - TONSILLECTOMY AND ADENOIDECTOMY HX [...] Allergies) Date Reviewed: 10/13/2018 [facility]ed by: [facility] Nathanael - Fully Assessed Reason for Visit: Follow Up [171] Primary Visit Diagnosis:Palpitations [R00.2] Other Visit Diagnoses:Fatigue, unspecified type [R53.83] Eustachian tube dysfunction, bilateral [H69.83] Low blood pressure reading [R03.1] Order(s):CBC + DIFF [SQCBCDIF] Order #: [id number] FUTURE MAGNESIUM BLD [SQMG1] Order #: [id number] FUTURE VITAMIN D 25 HYDROXY [SQVITD] Order #: [id number] FUTURE TSH BLD [SQTSH] Order #: [id number] FUTURE VITAMIN B12 BLOOD [SQB12] Order #: [id number] FUTURE T4 FREE/FREE THYROX [SQFT4] Order #: [id number] FUTURE COMP METABOLIC PANEL [SQCMP] Order #: [id number] FUTURE ECG B/O W INTERP (MED OFFICE) [ECG06] Order #: [id number] Prescriptions as of 10/13/2018 Sig: NORETHINDRONE ACETATE [...] by SANDY DAWN DO on 10/13/18 Normal [facility] Comprehensive Panelon 2017 ALP [Catalytic activity/Vol] 69 U/L Normal 46-116 [facility] Comment on above: Performed By: #### P 14 #### [facility] [address] [place], [place] [address] Bilirubin [Mass/Vol] 0.4 mg/dL Normal 0.2-1.0 [facility] Comment on above: Performed By: #### P 14 #### [facility] [address] [place], [place] [address] Protein [Mass/Vol] 7.1 g/dL Normal 6.4-8.2 [facility] Comment on above: Performed By: #### P 14 #### [facility] [address] [place], [place] [address] ALT [Catalytic activity/Vol] 51 U/L Normal 12-78 [facility] Comment on above: Performed By: #### P 14 #### [facility] [address] [place], [place] [address] AST [Catalytic activity/Vol] 22 U/L Normal 9-37 [facility] Comment on above: Performed By: #### P 14 #### [facility] [address] [place], [place] [address] Creatinine [Mass/Vol] 0.87 mg/dL Normal 0.51-0.95 [facility] Comment on above: Performed By: #### P 14 #### [facility] [address] [place], [place] [address] Albumin [Mass/Vol] 3.6 g/dL Normal 3.4-5.0 [facility] Comment on above: Performed By: #### P 14 #### [facility] [address] [place], [place] [address] Anion gap [Moles/Vol] 16 mmol/L Normal 8-16 [facility] Comment on above: Performed By: #### P 14 #### [facility] [address] [place], [place] [address] CO2 [Moles/Vol] 24 mmol/L Normal 21-32 [facility] Comment on above: Performed By: #### P 14 #### [facility] [address] [place], [place] [address] Glucose [Mass/Vol] 69 mg/dL Low 70-99 [facility] Comment on above: Performed By: #### P 14 #### [facility] [address] [place], [place] [address] Urea nitrogen [Mass/Vol] 19 mg/dL High 7-18 [facility] Comment on above: Performed By: #### P 14 #### [facility] [address] [place], [place] [address] Calcium [Mass/Vol] 8.9 mg/dL Normal 8.5-10.1 [facility] Comment on above: Performed By: #### P 14 #### [facility] [address] [place], [place] [address] Chloride [Moles/Vol] 105 mmol/L Normal 98-107 [facility] Comment on above: Performed By: #### P 14 #### [facility] [address] [place], [place] [address] Potassium [Moles/Vol] 5.0 mmol/L Normal 3.5-5.1 [facility] Comment on above: Performed By: #### P 14 #### [facility] [address] [place] [address] Sodium [Moles/Vol] 140 mmol/L Normal 136-145 [facility] Comment on above: Performed By: #### P 14 #### [facility] [address] [place] [address] Free Thyroxineon 10-13-2018 Free T4 [Mass/Vol] 2.19 ng/dL High 0.76-1.46 [facility] Comment on above: Performed By: #### F T4 #### [facility] [address] [place] [address] Hemogram/Diffon 10-13-2018 Abs Immature Grans 0.02 thou/cmm Normal 0.00-0.05 [facility] Comment on above: Performed By: #### C BCD1 #### [facility] [address] [place] [address] Abs. Baso 0.03 thou/cmm Normal 0.01-0.08 [facility] Comment on above: Performed By: #### C BCD1 #### [facility] [address] [place] [address] Abs. Gonzales 0.52 thou/cmm Normal 0.27-0.70 [facility] Comment on above: Performed By: #### C BCD1 #### [facility] [address] [place] [address] Abs. Neut (ANC) 4.16 thou/cmm Normal 1.56-6.13 [facility] Comment on above: Performed By: #### C BCD1 #### [facility] [address] [place] [address] Basophils/100 WBC (Bld) 0.4 % Normal [facility] Comment on above: Performed By: #### C BCD1 #### [facility] [address] [place] [address] Eosinophils (Bld) [#/Vol] 0.04 thou/cmm Normal 0.00-0.31 [facility] Comment on above: Performed By: #### C BCD1 #### [facility] [address] [place], [place] [address] Eosinophils/100 WBC (Bld) 0.6 % Normal [facility] Comment on above: Performed By: #### C BCD1 #### [facility] [address] [place], [place] [address] Erythrocyte distribution width (RBC) [Ratio] 11.9 % Normal 11.7-14.4 [facility] Comment on above: Performed By: #### C BCD1 #### [facility] [address] [place], [place] [address] Hematocrit (Bld) [Volume fraction] 43.2 % Normal 34.1-44.9 [facility] Comment on above: Performed By: #### C BCD1 #### [facility] [address] [place] [address] Hemoglobin (Bld) [Mass/Vol] 14.2 g/dL Normal 11.2-15.7 [facility] Comment on above: Performed By: #### C BCD1 #### [place] [address] Immature Grans 0.30 % Normal [facility] Comment on above: Performed By: #### C BCD1 #### [address] [address] Lymphocytes (Bld) [#/Vol] 2.01 thou/cmm Normal 1.18-3.74 [facility] Comment on above: Performed By: #### C BCD1 #### [address] [address] Lymphocytes/100 WBC (Bld) 29.6 % Normal [facility] Comment on above: Performed By: #### C BCD1 #### [facility] [address] [place], [place] [address] MCH (RBC) [Entitic mass] 31.0 pg Normal 25.6-32.2 [facility] Comment on above: Performed By: #### C BCD1 #### [facility] [address] [place], [place] [address] MCHC (RBC) [Mass/Vol] 32.9 % Normal 31.6-34.8 [facility] Comment on above: Performed By: #### C BCD1 #### [facility] [address] [place], [place] [address] MCV (RBC) [Entitic vol] 94.3 fL Normal 79.4-94.8 [facility] Comment on above: Performed By: #### C BCD1 #### [facility] [address] [place], [place] [address] Monocytes/100 WBC (Bld) 7.7 % Normal [facility] Comment on above: Performed By: #### C BCD1 #### [facility] [address] [place], [place] [address] Platelet mean volume (Bld) [Entitic vol] 10.8 fL Normal 9.4-12.3 [facility] Comment on above: Performed By: #### C BCD1 #### [facility] 1 [place] [id number] Platelets (Bld) [#/Vol] 322 thou/cmm Normal 182-369 [facility] Comment on above: Performed By: #### C BCD1 #### [facility] [address] [place] [address] RBC (Bld) [#/Vol] 4.58 mil/cmm Normal 3.93-5.22 [facility] Comment on above: Performed By: #### C BCD1 #### [facility] [address] [place] [address] RDW SD 41.5 fl Normal 36.4-46.3 [facility] Comment on above: Performed By: #### C BCD1 #### [facility] [address] [place], [place] [address] Seg Neutrophil 61.4 % Normal [facility] Comment on above: Performed By: #### C BCD1 #### [facility] [address] [place], [place] [address] WBC (Bld) [#/Vol] 6.78 thou/cmm Normal 3.98-10.04 [facility] Comment on above: Performed By: #### C BCD1 #### [facility] [address] [place], [place] [address] MDRD GFRon 10-13-2018 GFR/1.73 sq M predicted among non-blacks MDRD (S/P/Bld) [Vol rate/Area] mL/min/{1.73_m2} Normal >60mL/min/1. 73m2 [facility] Comment on above: Result Comment: If t he patient is , multiply the result by 1.210. Performed By: #### G FR #### [facility] [address] [place], [place] [address] Magnesium Bloodon 10-13-2018 Magnesium [Mass/Vol] 2.2 mg/dL Normal 1.6-2.6 [facility] Comment on above: Performed By: #### M AG #### [facility] [address] [place], [place] [address] PROGRESSon 10-13-2018 PROGRESS HNO ID: [id number] Author: Sandy Dawn Service: (none) Author Type: Physician Type: Progress Notes Filed: 10/13/2018 1:27 PM Note Text: Ritika Vega is a 32 year old female who presents with complaint of low BP, fatigue, palpitations, ear pressure HPI Went to disability benefits specialist to get a cortisone shot in [...] - PAST SURGICAL HISTORY OF UPPER ENDOSCOPY-DR GriffithAmna-Qmzez-Tbjxpfd Celiac Disease - TONSILLECTOMY AND ADENOIDECTOMY HX [...] by mouth. Disp: Rfl: Norethindrone Acet-Ethinyl Est (JUNE11/27, ,) 1-20 mg-mcg [...] R03.1 reassurance given. Sandy Dawn, DO Normal [facility] TSH, 3rd generationon 2017 TSH, 3rd generation <0.005 Low 0.358-3.740 [facility] Comment on above: Performed By: #### T SH3 #### [facility] [address] [place], [place] [address] Vitamin B12on 10-13-2018 Cobalamin (Vitamin B12) [Mass/Vol] 1058 pg/mL High 193-986 [facility] Comment on above: Performed By: #### B 12 #### [facility] [address] [place], [place] [address] Vital Signs Date Time Vital Sign Value Performing Clinician Faci lity 02-15-2025 08:35-0400 Body height 180.34 cm Yony Phan MD Work Phone: [facility] 02-15-2025 08:35-0400 Body mass index (BMI) [Ratio] 22.4 kg/m2 Yony Phan MD Work Phone: [facility] 02-15-2025 08:35-0400 Body weight 73.02 kg Yony Phan MD Work Phone: [facility] 02-15-2025 08:35-0400 Diastolic blood pressure 75 mm[Hg] Yony Phan MD Work Phone: [facility] 02-15-2025 08:35-0400 Heart rate 65 /min Yony Phan MD Work Phone: [facility] 02-15-2025 08:35-0400 SaO2% (BldA) [Mass fraction] 98 % Yony Phan MD Work Phone: [facility] 02-15-2025 08:35-0400 Systolic blood pressure 109 mm[Hg] Yony Phan MD Work Phone: [facility] 01-01-2025 09:05-0500 Body height 180.34 cm Yony Phan MD Work Phone: [facility] 01-01-2025 09:02-0500 Body mass index (BMI) [Ratio] 22.3 kg/m2 Yony Phan MD Work Phone: [facility] 01-01-2025 09:02-0500 Body weight 72.57 kg Yony Phan MD Work Phone: [facility] 01-01-2025 09:02-0500 Diastolic blood pressure 75 mm[Hg] Yony Phan MD Work Phone: [facility] 01-01-2025 09:02-0500 Systolic blood pressure 120 mm[Hg] Yony Phan MD Work Phone: [facility] 11-14-2024 09:02-0500 Body height 180.3 cm Jazmyne Argueta MUSHROOM PRESS OPERATOR - JOB LITHOGRAPHER Work Phone: [facility] [employer] 11-14-2024 09:02-0500 Body mass index (BMI) [Ratio] 22.32 kg/m2 Jazmyne Argueta MUSHROOM PRESS OPERATOR - JOB LITHOGRAPHER Work Phone: [facility] [employer] 11-14-2024 09:02-0500 Body weight 72.58 kg Jazmyne Agrueta MUSHROOM PRESS OPERATOR - JOB LITHOGRAPHER Work Phone: [facility] [employer] 11-14-2024 09:02-0500 Diastolic blood pressure 78 mm[Hg] Jazmyne Argueta MUSHROOM PRESS OPERATOR - JOB LITHOGRAPHER Work Phone: [facility] [employer] 11-14-2024 09:02-0500 Heart rate 61 /min Jazmyne Argueta MUSHROOM PRESS OPERATOR - JOB LITHOGRAPHER Work Phone: [facility] [employer] 11-14-2024 09:02-0500 Systolic blood pressure 124 mm[Hg] Jazmyne Argueta MUSHROOM PRESS OPERATOR - JOB LITHOGRAPHER Work Phone: [facility] [employer] 11-06-2024 19:00-0500 Diastolic blood pressure 64 mm[Hg] Pedro Edwards MD Work Phone: [facility] [employer] 11-06-2024 19:00-0500 Heart rate 81 /min Pedro Edwards MD Work Phone: [facility] [employer] 11-06-2024 19:00-0500 SaO2% (BldA) [Mass fraction] 100 % Pedro Edwards MD Work Phone: [facility] 11-06-2024 19:00-0500 Systolic blood pressure 119 mm[Hg] Pedro Edwards MD Work Phone: [facility] 11-06-2024 17:45-0500 Body temperature 97 [degF] Pedro Edwards MD Work Phone: [facility] 11-06-2024 15:45-0500 Respiratory rate 14 /min Pedro Edwards MD Work Phone: [facility] [place] 11-06-2024 11:44-0500 Body height 180.3 cm Pedro Edwards MD Work Phone: [facility] [place] 11-06-2024 11:44-0500 Body mass index (BMI) [Ratio] 22.32 kg/m2 Pedro Edwards MD Work Phone: [facility] [place] 11-06-2024 11:44-0500 Body weight 72.58 kg Pedro Edwards MD Work Phone: [facility] [place] 10-30-2024 15:15-0500 Body height 180.3 cm Pedro Edwards MD Work Phone: [facility] [place] 10-30-2024 15:15-0500 Body mass index (BMI) [Ratio] 22.45 kg/m2 Pedro Edwards MD Work Phone: [facility] [place] 10-30-2024 15:15-0500 Body weight 73.03 kg Pedro Edwards MD Work Phone: [facility] [place] 10-30-2024 15:15-0500 Diastolic blood pressure 85 mm[Hg] Pedro Edwards MD Work Phone: [facility] [place] 10-30-2024 15:15-0500 Heart rate 62 /min Pedro Edwards MD Work Phone: [facility] [place] 10-30-2024 15:15-0500 Systolic blood pressure 133 mm[Hg] Pedro Edwards MD Work Phone: [facility] [employer] 03-09-2024 08:36-0400 Body height 180.34 cm DO Nacho Iban Work Phone: [facility] 03-09-2024 08:36-0400 Body mass index (BMI) [Ratio] 22.3 kg/m2 DO Nacho Iban Work Phone: [facility] 03-09-2024 08:36-0400 Body temperature 97.5 [degF] DO Nacho Bian Work Phone: [facility] 03-09-2024 08:36-0400 Body weight 72.57 kg DO Nacho Iban Work Phone: [facility] 03-09-2024 08:36-0400 Diastolic blood pressure 69 mm[Hg] DO Nacho Iban Work Phone: [facility] 03-09-2024 08:36-0400 Heart rate 60 /min DO Nacho Iban Work Phone: [facility] 03-09-2024 08:36-0400 SaO2% (BldA) [Mass fraction] 98 % DO Nacho Iban Work Phone: [facility] 03-09-2024 08:36-0400 Systolic blood pressure 116 mm[Hg] DO Nacho Iban Work Phone: [facility] 12-29-2023 13:42-0500 Body mass index (BMI) [Ratio] 22.3 kg/m2 DO Nacho Iban Work Phone: [facility] 12-29-2023 13:42-0500 Body temperature 98.2 [degF] DO Nacho Iban Work Phone: [facility] 12-29-2023 13:42-0500 Body weight 72.57 kg DO Nacho Iban Work Phone: [facility] 12-29-2023 13:42-0500 Diastolic blood pressure 68 mm[Hg] DO Nacho Iban Work Phone: [facility] 12-29-2023 13:42-0500 Heart rate 74 /min DO Nacho Iban Work Phone: [facility] 12-29-2023 13:42-0500 SaO2% (BldA) [Mass fraction] 99 % DO Nacho Iban Work Phone: [facility] 12-29-2023 13:42-0500 Systolic blood pressure 104 mm[Hg] DO Nacho Iban Work Phone: [facility] 11-11-2023 08:06-0500 Body height 180.34 cm DO Nacho Iban Work Phone: [facility] 11-11-2023 08:06-0500 Body mass index (BMI) [Ratio] 22.6 kg/m2 DO Nacho Iban Work Phone: [facility] 11-11-2023 08:06-0500 Body weight 73.7 kg DO Nacho Iban Work Phone: [facility] 11-11-2023 08:06-0500 Diastolic blood pressure 70 mm[Hg] DO Nacho Iban Work Phone: [facility] 11-11-2023 08:06-0500 Systolic blood pressure 107 mm[Hg] DO Nacho Iban Work Phone: [facility] 09-09-2023 14:58-0400 Body height 180.34 cm DO Nacho Iban Work Phone: [facility] 09-09-2023 14:58-0400 Body mass index (BMI) [Ratio] 22.5 kg/m2 DO Nacho Iban Work Phone: [facility] 09-09-2023 14:58-0400 Body temperature 98 [degF] DO Nacho Iban Work Phone: [facility] 09-09-2023 14:58-0400 Body weight 73.19 kg DO Nacho Iban Work Phone: [facility] 09-09-2023 14:58-0400 Diastolic blood pressure 76 mm[Hg] DO Nacho Iban Work Phone: [facility] 09-09-2023 14:58-0400 Heart rate 80 /min DO Nacho Iban Work Phone: [facility] 09-09-2023 14:58-0400 Respiratory rate 16 /min DO Nacho Iban Work Phone: [facility] 09-09-2023 14:58-0400 SaO2% (BldA) [Mass fraction] 98 % DO Nacho Iban Work Phone: [facility] 09-09-2023 14:58-0400 Systolic blood pressure 128 mm[Hg] DO Nacho Iban Work Phone: [facility] 04-08-2023 08:01-0400 Body height 180.34 cm DO Nacho Iban Work Phone: [facility] 04-08-2023 08:01-0400 Body mass index (BMI) [Ratio] 22.1 kg/m2 DO Nacho Iban Work Phone: [facility] 04-08-2023 08:01-0400 Body temperature 98.4 [degF] DO Nacho Iban Work Phone: [facility] 04-08-2023 08:01-0400 Body weight 71.89 kg DO Nacho Iban Work Phone: [facility] 04-08-2023 08:01-0400 Diastolic blood pressure 66 mm[Hg] DO Nacho Iban Work Phone: [facility] 04-08-2023 08:01-0400 Heart rate 64 /min DO Nacho Iban Work Phone: [facility] 04-08-2023 08:01-0400 Respiratory rate 16 /min DO Nacho Iban Work Phone: [facility] 04-08-2023 08:01-0400 SaO2% (BldA) [Mass fraction] 98 % DO Nacho Ferrera Work Phone: [facility] 04-08-2023 08:01-0400 Systolic blood pressure 115 mm[Hg] DO Nacho Ferrera Work Phone: [facility] 10-08-2022 08:07-0500 Body height 180.34 cm No Primary Care Physician [facility] 10-08-2022 08:07-0500 Body mass index (BMI) [Ratio] 22.4 kg/m2 No Primary Care Physician [facility] 10-08-2022 08:07-0500 Body temperature 97.1 [degF] No Primary Care Physician [facility] 10-08-2022 08:07-0500 Body weight 72.8 kg No Primary Care Physician [facility] 10-08-2022 08:07-0500 Diastolic blood pressure 73 mm[Hg] No Primary Care Physician [facility] 10-08-2022 08:07-0500 Heart rate 56 /min No Primary Care Physician [facility] 10-08-2022 08:07-0500 Respiratory rate 18 /min No Primary Care Physician [facility] 10-08-2022 08:07-0500 SaO2% (BldA) [Mass fraction] 98 % No Primary Care Physician [facility] 10-08-2022 08:07-0500 Systolic blood pressure 116 mm[Hg] No Primary Care Physician [facility] 04-16-2022 08:07-0400 Body height 180.34 cm No Primary Care Physician [facility] Work Phone: 04-16-2022 08:07-0400 Body mass index (BMI) [Ratio] 21.6 kg/m2 No Primary Care Physician [facility] Work Phone: 04-16-2022 08:07-0400 Body temperature 97.2 [degF] No Primary Care Physician [facility] Work Phone: 04-16-2022 08:07-0400 Body weight 70.36 kg No Primary Care Physician [facility] Work Phone: 04-16-2022 08:07-0400 Diastolic blood pressure 70 mm[Hg] No Primary Care Physician [facility] Work Phone: 04-16-2022 08:07-0400 Heart rate 53 /min No Primary Care Physician [facility] Work Phone: 04-16-2022 08:07-0400 Respiratory rate 16 /min No Primary Care Physician [facility] Work Phone: 04-16-2022 08:07-0400 SaO2% (BldA) [Mass fraction] 99 % No Primary Care Physician [facility] Work Phone: 04-16-2022 08:07-0400 Systolic blood pressure 120 mm[Hg] No Primary Care Physician [facility] Work Phone: Encounters Encounter Date Encounter Type Care Provider Facility Start: 08-03-2025 End: 08-03-2025 ambulatory Yony Phan MD Work Phone: [facility] Start: 08-03-2025 End: 08-03-[address] Kirby Burrows MD [facility] Work Phone: Start: 08-03-2025 End: 08-03-2025 ambulatory [facility] Start: 07-06-2025 End: 07-06-2025 ambulatory Yony Phan MD Work Phone: [facility] Start: 07-06-2025 End: 07-06-[address] Kirby Burrows MD -[facility] Work Phone: Start: 07-06-2025 End: 07-06-2025 ambulatory [facility] Facility:[facility] Start: 06-18-2025 End: 06-18-2025 ambulatory Yony Phan MD Work Phone: -[facility] Start: 06-18-2025 End: 06-18-[address] Kirby Burrows MD -[facility] Work Phone: Start: 06-18-2025 End: 06-18-20[facility] Start: 05-25-2025 End: 05-25-2025 ambulatory Yony Phan MD Work Phone: -[facility] Start: 05-25-2025 End: 05-25-[address] Kirby Burrows MD -[facility] Work Phone: Start: 05-25-2025 End: 05-25-2025 ambulatory Kirby Boody Facility:[facility] Start: 05-10-2025 End: 05-10-2025 ambulatory Yony Phan MD Work Phone: -[facility] Start: 05-10-2025 End: 05-10-[address] Kirby Burrows MD -[facility] Work Phone: Start: 05-10-2025 End: 05-10-2025 ambulatory [facility] Facility:[facility] Start: 04-27-2025 End: 04-27-2025 ambulatory Yony Phan MD Work Phone: [facility] Work Phone: Start: 04-27-2025 End: 04-27-[address] Kirby Burrows MD -[facility] Work Phone: Start: 04-27-2025 End: 04-27-2025 ambulatory [facility] Facility:[facility] Start: 04-23-2025 End: 04-23-2025 ambulatory Dee D Glasgow DO Work Phone: Orthopaedics Start: 04-23-2025 End: 04-23-2025 Follow-up encounter Dee D Glasgow DO Work Phone: Orthopaedics Comment on above: Follow up Start: 04-13-2025 End: 04-13-2025 ambulatory Yony Phan MD Work Phone: [facility] Work Phone: Start: 04-13-2025 End: 04-13-[address] Kirby Burrows MD -[facility] Work Phone: Start: 04-13-2025 End: 04-13-2025 ambulatory Yony Phan Facility:[facility] Start: 03-28-2025 End: 03-28-2025 ambulatory Yony Phan MD Work Phone: [facility] Work Phone: Start: 03-28-2025 End: 03-28-2025 Patient encounter procedure Zuleyma Shaffer NP-C -[facility] Work Phone: Start: 03-28-2025 End: 03-28-2025 ambulatory Zuleyma Shaffer Facility:[facility] Start: 03-23-2025 End: 03-23-2025 Patient encounter procedure Dee Glasgow DO Work Phone: Orthopaedics Comment on above: Glenoid labral tear, right, initial encounter (Primary Dx); Tendinopathy of right rotator cuff Start: 03-23-2025 End: 03-23-2025 ambulatory NACHO FERRERA Facility:[facility] Start: 03-21-2025 End: 03-21-2025 E-mail encounter from caregiver Dee Glasgow MD Work Phone: Orthopaedics Start: 03-21-2025 End: 03-21-2025 Patient encounter procedure Dee Glasgow MD Work Phone: Orthopaedics Comment on above: Upcoming PRP appoint ment Start: 03-15-2025 End: 03-15-2025 ambulatory Yony Phan MD Work Phone: [facility] Work Phone: Start: 03-15-2025 End: 03-15-[address] Kirby Burrows MD -Laboratory, [place] Work Phone: Start: 03-15-2025 End: 03-15-2025 ambulatory Kirby Burrows Facility:[facility] Start: 02-15-2025 End: 02-15-[address] Kirby Burrows MD -[facility] Work Phone: Start: 02-15-2025 End: 02-15-2025 ambulatory Yony Phan Facility:[facility] Start: 01-08-2025 End: 01-08-2025 ambulatory Yony Phan MD Work Phone: [facility] Work Phone: Start: 01-08-2025 End: 01-08-[address] iKrby Burrows MD -Laboratory, [place] Work Phone: Start: 01-08-2025 End: 01-08-2025 ambulatory Kirby Burrows Facility:[facility] Start: 01-03-2025 End: 01-03-2025 ambulatory INNAADRIANA MONTOYAMATTHIAS DO Facility:[facility] Start: 01-03-2025 End: 01-03-2025 Patient encounter procedure INNA MONTOYATON DO [facility] Start: 01-01-2025 End: 01-01-2025 Patient encounter procedure Earnestine GONZÁLES -[place] [facility] Start: 01-01-2025 End: 01-01-2025 Patient encounter status Earnestine GONZÁLES [facility] Start: 01-01-2025 End: 01-01-2025 ambulatory Yony Phan Facility:[facility] Start: 12-27-2024 End: 12-27-2024 ambulatory [facility] Start: 12-08-2024 End: 12-08-[address] Kirby Burrows MD -Laboratory, [place] Work Phone: Start: 12-08-2024 End: 12-08-2024 [facility] Start: 11-14-2024 End: 11-14-2024 Telemedicine consultation with patient Dee Glasgow DO Work Phone: Orthopaedics Start: 11-14-2024 End: 11-14-2024 ambulatory Dee Dianael DO Work Phone: Orthopaedics Comment on above: Glenoid labral tear, right, initial encounter (Primary Dx); Tendinopathy of right rotator cuff Start: 11-14-2024 End: 11-14-2024 Postop follow up visit related to original px Jazmyne Argueta MUSHROOM PRESS OPERATOR - JOB LITHOGRAPHER Work Phone: [facility] [place] [facility] [place] Comment on above: Postop check (Primar y Dx) Start: 11-06-2024 End: 11-06-2024 ambulatory PEDRO EDWARDS [facility] Start: 11-06-2024 End: 11-06-2024 Subsequent hospital visit by physician Pedro Edwards MD Work Phone: [facility] MA[facility] Comment on above: Intra-abdominal and pelvic swelling, mass and lump, unspecified site Start: 11-03-2024 End: 11-03-2024 ambulatory PEDRO JIMENEZResolverKENDAL [facility] Start: 10-31-2024 End: 10-31-2024 ambulatory Dee Glasgow DO Work Phone: Orthopaedics Start: 10-31-2024 End: 10-31-2024 Patient encounter procedure Dee Joseph Glasgow DO Work Phone: Orthopaedics Comment on above: Virtual appointment Start: 10-30-2024 End: 10-30-2024 ambulatory PEDRO JIMENEZGOintegroLCKENDAL [facility] Start: 10-30-2024 End: 10-30-2024 Office outpatient new 45 minutes Pedro Edwards MD Work Phone: [facility] [place] [facility] [place] Comment on above: Ovarian mass (Primar y Dx); Mature cystic teratoma; Primary female infertility Start: 10-30-2024 End: 10-30-2024 ambulatory NACHO FERRERA Facility:[facility] Start: 10-30-2024 End: 10-30-2024 Subsequent hospital visit by physician [employer] [facility] (I-Stat/1.5t) Work Phone: Radiology [...] Start: 10-18-2024 End: 10-18-2024 ambulatory Yony Phan Facility:[facility] Start: 10-13-2024 End: 10-13-2024 ambulatory INNAADRIANA VICKERS [facility] Start: 10-03-2024 End: 10-03-2024 Orders Only Daniel Bourgeois MD Work Phone: Referring Physician Comment on above: Pain (Primary Dx) Start: 09-29-2024 End: 09-29-2024 ambulatory INNA BUSTILLOS DO Facility:[facility] Start: 09-29-2024 End: 09-29-2024 Patient encounter procedure INNA BUSTILLOS DO [facility] Start: 09-14-2024 End: 09-14-2024 ambulatory Yony Emilie Facility:[facility] Start: 08-25-2024 End: 08-25-2024 ambulatory Kirby Burrows Facility:[facility] Start: 08-17-2024 End: 08-17-2024 ambulatory Milesdaniel Phan [facility] Start: 08-16-2024 End: 08-16-20[facility] Start: 03-09-2024 End: 03-09-2024 Patient encounter procedure DO Nacho Ferrera Work Phone: [facility] Endocrinology Work Phone: Start: 03-08-2024 End: 03-08-2024 ambulatory DO Nacho Ferrera Work Phone: [facility] Work Phone: Start: 03-08-2024 End: 03-08-2024 Patient encounter procedure DO Nacho Ferrera Work Phone: [facility]-Laboratory, [place] Work Phone: Start: 01-27-2024 End: 02-01-2024 ambulatory NACHO FERRERA DO Facility:[facility] Start: 01-27-2024 End: 01-31-[address] TINO CHRISTIANSON MD [facility] Start: 12-29-2023 End: 12-29-2023 Patient encounter procedure DO Nacho Ferrera Work Phone: [facility] Work Phone: Start: 11-11-2023 End: 11-11-2023 ambulatory DO Nacho Ferrera Work Phone: [facility] Work Phone: Start: 11-11-2023 End: 11-11-2023 Patient encounter procedure DO [facility] Work Phone: Start: 11-11-2023 End: 11-11-2023 Patient encounter procedure DO Nacho Ferrera Work Phone: [facility] Start: 10-13-2023 End: 10-13-2023 ambulatory DO Nacho Ferrera Work Phone: [facility] Work Phone: Start: 10-13-2023 End: 10-13-2023 Patient encounter procedure DO Nacho Nugenter Work Phone: [facility]-Laboratory Work Phone: Start: 09-10-2023 End: 09-10-2023 ambulatory DO Nacho Ferrera Work Phone: [facility] Work Phone: Start: 09-10-2023 End: 09-10-2023 Patient encounter procedure DO Nacho Ferrera Work Phone: [facility]-Ultrasound, [facility] Work Phone: Start: 09-09-2023 End: 09-09-2023 Patient encounter procedure DO Nacho Ferrera Work Phone: [facility] Endocrinology Work Phone: Start: 07-13-2023 End: 07-13-2023 ambulatory DO Nacho Ferrera Work Phone: [facility] Work Phone: Start: 07-13-2023 End: 07-13-2023 Patient encounter procedure DO Nacho Ferrera Work Phone: [facility]-Outpatient Bone Densitometry Work Phone: Start: 05-21-2023 End: 05-21-2023 ambulatory Va Beasley MD Work Phone: Endocrinology Comment on above: Graves disease (Prim brennan Dx); Celiac disease Start: 05-21-2023 End: 05-21-2023 Telemedicine consultation with patient Va Beasley MD Work Phone: [facility] Start: 04-08-2023 End: 04-08-2023 ambulatory DO Nacho Ferrera Work Phone: [facility] Work Phone: Start: 04-08-2023 End: 04-08-2023 Patient encounter procedure DO Nacho Ferrera Work Phone: [facility] Endocrinology Start: 03-05-2023 End: 03-05-2023 ambulatory [facility] Work Phone: Start: 03-05-2023 End: 03-05-2023 Patient encounter procedure [facility] Start: 12-22-2022 End: 12-22-2022 ambulatory No Primary Care Physician [facility] Work Phone: Start: 12-22-2022 End: 12-22-2022 Patient encounter procedure No Primary Care Physician [facility] Start: 10-15-2022 End: 10-15-2022 ambulatory No Primary Care Physician [facility] Work Phone: Start: 10-15-2022 End: 10-15-2022 Patient encounter procedure No Primary Care Physician [facility] Start: 10-08-2022 End: 10-08-2022 Patient encounter procedure No Primary Care Physician [facility]ocrinology Start: 09-22-2022 End: 09-22-2022 ambulatory [facility] Work Phone: Start: 09-22-2022 End: 09-22-2022 Patient encounter procedure [facility] Start: 09-02-2022 End: 09-02-2022 ambulatory [facility] Work Phone: Start: 09-02-2022 End: 09-02-2022 Patient encounter procedure [facility] Start: 07-08-2022 End: 07-08-2022 ambulatory No Primary Care Physician [facility] Work Phone: Start: 07-08-2022 End: 07-08-2022 Patient encounter procedure No Primary Care Physician [facility] Start: 04-16-2022 End: 04-16-2022 Patient encounter procedure No Primary Care Physician [facility] Endocrinology Procedures Date Procedure Procedure Detail Performing Clinician Start: 03-23-2025 Njx pltlt plasma w/i mg harvest/preparation Dee Glasgow DO Work Phone: Start: 03-23-2025 Arthrocentesis aspir &/inj major jt/bursa w/us Dee Glasgow DO Work Phone: Start: 11-06-2024 End: 11-06-2024 Ovarian cystectomy uni/bi Pedro Antoine MD Work Phone: Start: 11-06-2024 Urine test visual color cmprsn meths Bety N Secor MUSHROOM PRESS OPERATOR - JOB LITHOGRAPHER Work Phone: Start: 10-30-2024 Mri any jt [...] for Adults (1 - 1-dose 75+ series) [facility] Start: 2036 Zoster Vaccines (1 of 2) Zoster Vaccines (1 of 2) [facility] Start: 04-17-2029 DTaP/Tdap/Td Vaccines (7 - Td or Tdap) DTaP/Tdap/Td Vaccines (7 - Td or Tdap) [facility] Start: 04-17-2029 Urine microalbumin profile [facility] Start: 07-09-2025 Influenza vaccination Influenza Vaccine (Season Ended) [facility] Start: 03-23-2025 End: 03-23-2025 Patient encounter procedure 03/23/2025 11:30 AM EDT Office Visit Orthopaedics [address] [facility] [place] [address] Dee Glasgow, DO [address] [place] [address] PRP INJECTION - RIGHT SHOULDER Orthopaedics Comment on above: PRP INJECTION - RIGHT SHOULDER Start: 11-14-2024 End: 11-14-2024 Follow-up encounter 11/14/2024 1:30 PM [facility] [address] [place] [address] Dee Glasgow, DO [address] [place] [address] Follow up left shoulder/MRI results Orthopaedics Comment on above: Follow up left shoulder/MRI results Start: 11-14-2024 End: 11-14-2024 Patient encounter procedure 11/14/2024 9:00 AM EST Office Visit [facility] [address] [place] [id number] Jazmyne Argueta, MUSHROOM PRESS OPERATOR - JOB LITHOGRAPHER [address] [place] [address] [facility] Start: 11-06-2024 End: 11-06-2024 Admission to same day surgery center 11/06/2024 1:30 PM EST - 11/06/2024 2:30 PM EST Surgery [facility] MA[facility] OR [address] [place] [phone] Pedro Edwards MD [address] [place] [address] LAPAROSCOPIC OVARIAN CYSTECTOMY [79934 (CPT )] [facility] OR Comment on above: LAPAROSCOPIC OVARIAN CYSTECTOMY [09562 ( CPT )] Start: 11-06-2024 End: 11-06-2024 Anesthesia consultation 11/06/2024 1:30 PM EST Anesthesia Event [facility] OR [address] [place] [phone] Bety Ayon, MUSHROOM PRESS OPERATOR - JOB LITHOGRAPHER [address] [facility] [address] [place] [address] [facility] Start: 11-06-2024 End: 11-06-2024 Ovarian cystectomy uni/bi OVARIAN CYSTECTOMY Intra-abdominal and pelvic swelling, mass and lump, unspecified site 11/06/2024 1:30 PM EST [facility] Operating Room Start: 11-06-2024 Subsequent hospital visit by physician 11/06/2024 1:30 PM EST Hospital Encounter [facility] [address] [place] [phone] Pedro Edwards MD [address] [place] [address] [facility] Start: 10-30-2024 End: 10-30-2024 Patient encounter procedure 10/30/2024 7:30 AM EST Appointment Radiology [address] [place] [address] Right shoulder Radiology Comment on above: Right shoulder Start: 10-19-2024 End: 10-19-2024 Patient encounter procedure Radiology Comment on above: xr shoulder Labral tear Start: 07-09-2024 Covid-19 Vaccine ( season) Covid-19 Vaccine () [facility] Start: 07-09-2024 Influenza vaccination Influenza Vaccine (#1) [facility] Start: 11-11-2023 Liquid based cervical cytology screening [facility] Start: 07-09-2023 Influenza vaccination INFLUENZA (#1) [facility] Start: 05-21-2023 End: 07-21-2023 THYROID STIMULATING IMMUNOGLOBULIN BLOOD THYROID STIMULATING IMMUNOGLOBULIN BLOOD Lab Routine Graves disease Expected: 05/21/2023, Expires: 07/21/2023 [facility] Work Phone: Comment on above: Expected: 05/21/2023, Expires: 3 Start: 05-21-2023 End: 07-21-2023 Thyrotropin [Units/volume] in Serum or Plasma TSH BLD Lab Routine Graves disease Expected: 05/21/2023, Expires: 07/21/2023 [facility] Work Phone: Comment on above: Expected: 05/21/2023, Expires: 3 Start: 05-21-2023 End: 07-21-2023 Thyroxine (T4) free [Mass/volume] in Serum or Plasma T4 FREE/FREE THYROX Lab Routine Graves disease Expected: 05/21/2023, Expires: 07/21/2023 [facility] Work Phone: Comment on above: Expected: 05/21/2023, Expires: 3 Start: 05-21-2023 End: 07-21-2023 Triiodothyronine (T3) Free [Mass/volume] in Serum or Plasma T3 FREE BLD Lab Routine Graves disease Expected: 05/21/2023, Expires: 07/21/2023 [facility] Work Phone: Comment on above: Expected: 05/21/2023, Expires: 3 Start: 11-08-2022 DEPRESSION ASSESSMENT DEPRESSION ASSESSMENT [facility] Start: 09-02-2022 COVID-19 VACCINE (4 - Moderna series) COVID-19 VACCINE (4 - Moderna series) [facility] Start: 01-06-2019 PAP TESTING [facility]ING [facility] [facility] Start: 01-06-2017 Screening for malignant neoplasm of cervix Cervical Cancer Screening [facility] Start: 2016 HPV TESTING HPV TESTING [facility] Start: 2016 Screening for malignant neoplasm of cervix [facility] Start: 2007 Screening for malignant neoplasm of cervix Pap Smear [facility] Start: 2004 Anxiety Screening Anxiety Screening [facility] Start: 2004 Depression Screening Depression Screening [facility] Start: 2004 HEPATITIS C SCREENING HEPATITIS C SCREENING [facility] Start: 2004 Hepatitis C screening Hepatitis C Screening [facility] Start: 2004 HIV SCREENING HIV SCREENING [facility] Start: 2004 HIV screening HIV Screening [facility] Start: 1999 Varicella vaccination Varicella Vaccines (1 of 2 - 13+ 2-dose series) [facility] Start: 1998 Depression Screening Depression Screening [facility] Start: 1986 HEPATITIS B (1 of 3 - 3-dose series) HEPATITIS B (1 of 3 - 3-dose series) [facility] Start: 1986 HIV screening HIV Screening [facility] Start: 1986 Thyroid stimulating hormone measurement TSH Level [facility] End: 11-17-2025 MR Shoulder - right WO contrast MRI SHOULDER WO IVCON RIGHT Radiology Routine Glenoid labral tear, right, initial encounter Tendinopathy of right rotator cuff 1 Occurrences starting 10/18/2024 until 11/17/2025 [facility] Work Phone: Comment on above: 1 Occurrences starting 10/18/2024 until 11/17/2025 Non-Gynecologic Cytology [facility] Work Phone: Comment on above: Release Upon Ordering for 1 Occurrences starting 11/06/2024 Path report.final Dx Spec [facility] T4 free measurement [facility] Thyroid stimulating hormone measurement [facility] Tissue exam [facility] Comment on above: Release Upon Ordering for 1 Occurrences starting 11/06/2024 Triiodothyronine, fr ee measurement [facility] End: 11-02-2025 XR Shoulder - left 3 Views XR SHOULDER GENERAL 3V OR MORE AP/TRUE AP/OTHER LEFT Radiology Routine Pain 1 Occurrences starting 10/03/2024 until 11/02/2025 [facility] Work Phone: Comment on above: 1 Occurrences starting 10/03/2024 until 11/02/2025 End: 11-02-2025 XR Shoulder - right 3 Views XR SHOULDER GENERAL 3V OR MORE AP/TRUE AP/OTHER RIGHT Radiology Routine Pain 1 Occurrences starting 10/03/2024 until 11/02/2025 [facility] Comment on above: 1 Occurrences starting 10/03/2024 until 11/02/2025 [facility] Immunizations Immunization Date Immunization Notes Care Provider Amberly campos 04-17-2019 tetanus toxoid, redu shonna diphtheria toxoid, and acellular pertussis vaccine, adsorbed Va Beasley MD Work Phone: [facility] 10-13-2018 influenza virus vacc ine, unspecified formulation Daniel Bourgeois MD Work Phone: [facility] Payers Date Payer Category Payer Self-pay [id number] 2024 Commercial Managed C [facility] [employer] ADRIÁN [id number] 2024 Private Health Insurance [id number] 2023 Unknown [id number] 2022 Unknown [id number] [id number]. [id number] 1986 Unknown [id number] 2.16.840.1.097547.3.579.2. 627 1986 Unknown [id number] 2.16.840.1.473829.3.579.2. 627 1986 Unknown [id number] 2.16.840.1.488317.3.579.2. 651 1986 Unknown [id number] 2.16.840.1.555375.3.579.2. 651 1986 Unknown [id number] 2.16.840.1.375043.3.579.2. 479 1986 Unknown [id number] 2.16.840.1.041603.3.579.2. 627 Unknown [facility] [id number] Unknown [facility] [id number] Unknown . [id number] Unknown [employer] [id number] Unknown [id number] 2.16.840.1.553525.3.579.2. 462 Unknown [id number] 2.16.840.1.875214.3.579.2. 462 Unknown [id number] 2.16.840.1.653465.3.579.2. 462 Unknown [id number] 2.16.840.1.739135.3.579.2. 462 Unknown [id number] 2.16.840.1.670251.3.579.2. 462 Unknown [id number] 2.16.840.1.468332.3.579.2. 462 Unknown [id number] 2.16.840.1.048096.3.579.2. 462 Unknown [id number] 2.16.840.1.548341.3.579.2. 462 Unknown [id number] 2.16.840.1.147092.3.579.2. 462 Unknown [id number] 2.16.840.1.601894.3.579.2. 462 Unknown [id number] 2.16.840.1.129877.3.579.2. 462 Unknown [id number] 2.16.840.1.168304.3.579.2. 462 Unknown [id number] 2.16.840.1.212661.3.579.2. 462 Unknown [id number] 2.16.840.1.986083.3.579.2. 462 Unknown [id number] 2.16.840.1.774060.3.579.2. 462 Unknown [id number] 2.16.840.1.093895.3.579.2. 462 Unknown [id number] 2.16.840.1.132305.3.579.2. 462 Social History Date Type Detail Facility Start: 04-16-2022 End: 12-29-2023 Tobacco smoking status NCIS Unknown if ever smoked [facility] Start: 1985 Sex Assigned At Female [facility] Start: 11-19-2015 End: 01-01-2025 Tobacco smoking status NHIS Never smoked tobacco [facility] Start: 11-19-2015 End: 11-03-2024 Tobacco use and exposure Smokeless tobacco non-user [facility] Start: 08-05-2021 End: 11-06-2024 Alcohol intake Current drinker of alcohol (finding) [facility] Start: 08-05-2021 End: 05-06-2023 History of Social function [facility] Start: 08-05-2021 End: 05-06-2023 Tobacco use panel [facility] Adult Depression Screening Assessment 0 [facility] Start: 1985 Sex Assigned At Not on file [facility] Start: 06-08-2022 End: 01-19-2025 Sex Female (finding) [facility] Sexual O[facility] [place] Clinical Notes 05-21-2023 to 03-23-2025 Dee Glasgow DO - 03/23/2025 2:14 PM EDT Note Date & Type Note Facility 03-23-2025 Note HNO ID: [id number] Author: DEE GLASGOW DO Service: ? Author [...] these instructions. Informed Consent Consent Obtained: Written [place] Protocol A moment to CARE was completed. [...] these instructions. Informed Consent Consent Obtained: Written [place] Protocol A moment to CARE was completed. [...] Glasgow DO 03/23/2025 documented in this encounter [facility] 02-15-2025 Evaluation note Diagnosis Onset Date Resolution 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 February 15, 2025 8:29am [facility] Work Phone: 1(297) 924-102902-26-2025 Evaluation + Plan note Diagnostic Tests Pending * Anti-Mullerian Hormone (AMH) 01/03/25 [facility] 02-24-2025 Evaluation note* Diagnosis Onset Date Resolution Status Admit Date Infertility acute December 8:49am Encounter for routine gynecological examination noneactive Februa 2024 8:49am [facility] Work Phone: 1(229) 345-535002-24-2025 Evaluation note* Diagnosis Onset Date Resolution Status Admit Date Infertility acute December 8:49am Encounter for routine gynecological examination noneactive Februa 2024 8:49am Thyrotoxicosis due to Graves ' disease chronic February 15, 2025 8:29am [facility] Work Phone: 1(165) 577-521501-07-2025 NoteHNO ID: [id number] Author: DEE GLASGOW DO Service: ? Author Type: Physician Type: Progress Notes Filed: 11/14/2024 13:52 Note Text: MUSCULOSKELETAL DISTANCE HEALTH VIRTUAL VISIT DOCUMENTATION NOTE This virtual visit was performed via video enabled technology, and the patient provided consent to be evaluated and managed using this virtual visit and video enabled technology. Distance Health Platform: [employer] CHIEF COMPLAINT (CC): Ritika Vega is a [...] compliance with the above plan. Dee Glasgow [facility]01-07-2025 History of Present illness Narrative* Dee Glasgow, DO - 11/14/2024 1:44 PM EST MUSCULOSKELETAL DISTANCE HEALTH VIRTUAL VISIT DOCUMENTATION NOTE This virtual visit was performed via video enabled technology, and the patient provided consent to be evaluated and managed using this virtual visit and video enabled technology. [employer] Health Platform: Whelse CHIEF COMPLAINT (CC): Ritika Vega is a [...] plan. Dee Glasgow DO [facility] History of Present illness Narrative* Jazmyne Argueta, MUSHROOM PRESS OPERATOR - JOB LITHOGRAPHER - 11/14/2024 9:00 AM EST GYNECOLOGIC ONCOLOGY [...] PO Take 240 mg by mouth daily. Holden-3 Fatty Acids (Fish Oil) 1000 MG capsule [...] Follow-up with Dr. Bustillos and with primary window glazier for routine care. I explained diagnosis and treatment plan; patient expressed understanding and was in agreement withthe plan. ONESIMO Lynn CNP documented in this [facility]12-30-2024 Miscellaneous Notes* Post- Procedure Note - [...] 11/06/2024 1:11 PM EST Date: 11/06/2024 Location: [facility] OR Name: Ritika Vega, : 1985, Diagnosis Pre-op Diagnosis * Intra-abdominal and pelvic swelling, mass and lump, unspecified site [R19.00] Post-op Diagnosis * Intra-abdominal and pelvic swelling, mass and lump, unspecified site [R19.00] Procedures LAPAROSCOPIC OVARIAN CYSTECTOMY 07463 - OR OVARIAN CYSTECTOMY UNI/BI Surgeons * Pedro Edwards [...] 11/06/24 1409 Description: RIGHT OVARIAN CYST Staff: Lime Hide Inspector: Angelina Clifton RN; Evelia Beasley RN Scrub [...] indicated for this procedure. documented in this [facility]12-30-2024 Note* Post-Procedure Note - Marielle Hair RN - 11/06/2024 7:10 PM EST Patient feeling better after IM Ephedrine injection. Ambulated and ready to be discharged [place] [address]-30-2024 Note* Post-Procedure Note - Marielle Hair RN - 11/06/2024 7:10 PM EST Patient feeling better after IM Ephedrine injection. Ambulated and ready to be discharged [address]30-2024 Note* Post-Procedure Note - Marielle Hair RN [...] of bed, then upon standing, patient vomited. [place] [address]-30-2024 Note* Post-Procedure Note - Marielle Hair RN [...] of bed, then upon standing, patient vomited. [address]30-2024 Note* Post-Procedure Note - Marielle Hair RN - 11/06/2024 5:47 PM EST Patient states she is feeling better. We will attempt to ambulate to restroom [address]30-2024 Note* Post-Procedure Note - Marielle Hair RN - 11/06/2024 5:47 PM EST Patient states she is feeling better. We will attempt to ambulate to restroom [place] [id number] Note* Post-Procedure Note - Marielle Hair RN - 11/06/2024 4:45 PM EST Discharge information given to the patient. Patient and family verbalized understanding of information. All questions were answered at this time. Patient denies dizziness. Vital signs are stable. [place] [address]-30-2024 Note* Post-Procedure Note - Marielle Hair RN - 11/06/2024 4:45 PM EST Discharge information given to the patient. Patient and family verbalized understanding of information. All questions were answered at this time. Patient denies dizziness. Vital signs are stable. [id number]* Perioperative Nursing Note - Michelle Dick RN - 11/06/2024 3:35 PM EST Family/visitor at bedside with patient. [id number] Note* Perioperative Nursing Note - Michelle Dick RN - 11/06/2024 3:35 PM EST Family/visitor at bedside with patient. [address]30-2024 NotePatient: Ritika Vega Procedure Summary Date: 11/06/24 Room / Location: [facility] Operating Room Anesthesia Start: 1312 Anesthesia Stop: 1436 Procedure: LAPAROSCOPIC OVARIAN CYSTECTOMY [...] all PACU criteria has been met.[facility]12-30-2024 NotePatient: Ritika Vega Procedure Summary Date: 11/06/24 Room / Location: [facility] OR [address] [place] [address] Operating Room Anesthesia Start: 1311 Anesthesia Stop: [...] Allowed opportunity for questions and acknowledgement of understanding.[facility]12-30-2024 NoteAirway Date/Time: 11/06/2024 1:21 PM Urgency: scheduled Airway not difficult General Information and Staff Patient location during procedure: Procedural Resident/TANNING CONSULTANT: Alvin New CRNA Performed: SRNA Indications and [...] (cm): 21 Number of attempts at approach: [address] [place], [place] [address]12-30-2024 Note Peripheral Block Time Out: 11/06/2024 1:15 PM Patient location during procedure: Procedural Start time: 11/06/2024 1:15 PM End time: 11/06/2024 1:17 PM Reason for block: at surgeon's request and post-op pain management Staffing Performed: TANNING CONSULTANT Resident/TANNING CONSULTANT: ONESIMO Madrigal CRNA Preanesthetic Checklist Completed: patient [...] supine Prep: ChloraPrep Patient monitoring: heart rate, teletypesetter monitor, continuous pulse ox and continuous capnometry [...] plane. and Local anesthetic injected without difficultyMedications tzuRAELOsdnxu-xzklranqlgu-ridvjpvgsoe (TAP) syringe - Injection 60 mL - 11/06/2024 1:15:00 [facility]12-30-2024 Note* Brief Op Note - Pedro Edwards MD - 11/06/2024 1:11 PM EST Date: 11/06/2024 Location: [facility] OR Name: Ritika Vega, : 1985, Diagnosis Pre-op Diagnosis * Intra-abdominal and pelvic swelling, mass and lump, unspecified site [R19.00] Post-op Diagnosis * Intra-abdominal and pelvic swelling, mass and lump, unspecified site [R19.00] Procedures LAPAROSCOPIC OVARIAN CYSTECTOMY 04635 - OR OVARIAN CYSTECTOMY UNI/BI Surgeons * Pedro Edwards [...] 11/06/24 1409 Description: RIGHT OVARIAN CYST Staff: Lime Hide Inspector: Angelina Clifton RN; Evelia Beasley RN Scrub Person: Dread Lombarditian Findings: Enlarged right ovary with a smooth [...] and lump, unspecified site [R19.00] Collected By: Pedor Fernando MD 11/06/2024 1:40 PM TISSUE EXAM Ovary, Right Pre-op diagnosis: Intra-abdominal and pelvic swelling, mass and lump, unspecified site [R19.00] Collected By: Pedro Fernando MD 11/06/2024 2:09 PM Wound Class: Class I: Clean Blood Products: None Prophylactic Antibiotics: Pre-operative antibiotics were not given because antibiotics are not indicated for this procedure. [facility]12-30-2024 Note* Brief Op Note - Pedro Edwards MD - 11/06/2024 1:11 PM EST Date: 11/06/2024 Location: [facility] OR Name: Ritika Vega, : 1985, Diagnosis Pre-op Diagnosis * Intra-abdominal and pelvic swelling, mass and lump, unspecified site [R19.00] Post-op Diagnosis * Intra-abdominal and pelvic swelling, mass and lump, unspecified site [R19.00] Procedures LAPAROSCOPIC OVARIAN CYSTECTOMY 70496 - OR OVARIAN CYSTECTOMY UNI/BI Surgeons * Pedro Edwards [...] 11/06/24 1409 Description: RIGHT OVARIAN CYST Staff: Lime Hide Inspector: Angelina Clifton RN; Evelia Beasley RN Scrub [...] antibiotics are not indicated for this procedure. [facility]12-30-2024 History and physical note* Pedro Edwards MD - 11/06/2024 9:17 AM EST Images from the original note were not included. REFERRAL CLERK Pre-Op Note Patient Name: Ritika Vega Patient [...] LASIK (2010); Tonsillectomy; Upper gastrointestinal endoscopy; and [place] tooth extraction. ALLERGIES: Allergies as of 10/30/2024 [...] suite. Pedro Jimenez MD 11/06/2024, 9:17 AM [employer] Phone: [phone] NoteOB/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 REPAIRER Pre-Op Note Patient Name: Ritika Vega Patient [...] LASIK (2010); Tonsillectomy; Upper gastrointestinal endoscopy; and [place] tooth extraction. ALLERGIES: Allergies as of 10/30/2024 [...] operative suite. Pedro Jimenez MD 11/06/2024, 9:17 [facility]12-30-2024 History and physical note* Pedro Edwards MD - 11/06/2024 9:17 AM EST Images from the original note were not included. REFERRAL CLERK Pre-Op Note Patient Name: Ritika Vega Patient [...] LASIK (2010); Tonsillectomy; Upper gastrointestinal endoscopy; and [place] tooth extraction. ALLERGIES: Allergies as of 10/30/2024 [...] MD 11/06/2024, 9:17 AM documented in this [facility]12-25-2024 NotePatient: Ritika Vgea Procedure Information Date/Time: 11/06/24 1330 Procedure: OVARIAN CYSTECTOMY (Abdomen) - 60 MINS Location: [address] Operating Room Surgeons: Pedro Edwards MD [...] to ERAS protocol. General eras - celebrex (window glazier) Bety Ayon APRN - JOB LITHOGRAPHER YONATHAN Screening Labs: No results found for: WBC, HGB, HCT, MCV, PLT No results found for: SODIUM, NA, POTASSIUM, K, CHLORIDE, CL, CO2, BUN, CREATININE, GLUCOSE, CALCIUM, PROT, BILIRUBINFL, ALKPHOS, AST, ALT, EGFR, GLOB No echocardiogram results found for the past 14 days No results found for this or any previous visit. Equipment Requests: Additional Equipment [facility]-2024 NoteSurgeon: Dr Edwards Case# [id number] Procedure: Ovarian cystectomy Sx Date: Tuesday 11/06 Time: 1400 Location: [facility] CPT: 25405 ICD-10: R19.00 Special Equipment: PAT: Saturday 11/03 at 0830- Phone call Submitted auth thru [employer] insurance portal, awaiting determination.[facility]12-23-2024 History of Present illness Narrative* Pedro [...] Anjel Vega Heart disease Maternal Grandfather Apolinar Bustillolety Anesthesia problems Maternal Grandmother Cece Lee Diabetes Maternal Grandmother Cece Meiser Heart disease Maternal Grandmother Cece Meiser Heart disease Paternal Grandfather Zac Vega Stroke Paternal Grandfather Zac Vega Cancer Paternal Grandmother DeboMarley Vega Social History Socioeconomic History Marital status: [...] recognition. I apologize for minor errors in senior accounting associate which may be present. documented in this [facility]12-23-2024 History of Present illness Narrative* Margaret [...] PATIENT PRESENTS WITH AN IMPLANTABLE OR ATTACHED INFORMATION TECHNOLOGY SPECIALIST: No RADIOLOGY DEPARTMENT: MR; Exam(s) Completed: Upper MSK: Shoulder, right PERIPHERAL IV DATA: Not applicable SIGNED BY: RT Scotty(R) October 30, 2024 7:43 AM [facility] NoteHNO ID: [id number] Author: MARGARET AMIN RT(Tian) Service: ? Author Type: Technologist Type: [...] PATIENT PRESENTS WITH AN IMPLANTABLE OR ATTACHED INFORMATION TECHNOLOGY SPECIALIST: No RADIOLOGY DEPARTMENT: MR; Exam(s) Completed: Upper MSK: Shoulder, right PERIPHERAL IV DATA: Not applicable SIGNED BY: RT Scotty(R) October 30, 2024 7:43 [facility]12-16-2024 Telephone encounter Note* Telephone Encounter - Jamila Zuniga MA - 10/23/2024 11:31 AM EST Responded Via My Chart. [facility]12-16-2024 Miscellaneous Notes* Telephone Encounter - Jamila Zuniga MA - 10/23/2024 11:31 AM EST Responded Via My Chart. [facility]24 NoteHNO ID: [id number] Author: DEE GLASGOW DO Service: ? Author [...] results and radiologist's interpretation, available in the [facility] health record. Images were reviewed with the [...] the treatment plan as detailed above. Dee Glasgow, [facility]12-11-2024 History of Present illness Narrative* Dee [...] results and radiologist's interpretation, available in the [facility] health record. Images were reviewed with the [...] above. Dee Glasgow DO documented [facility]24 NoteHNO ID: [id number] Author: MARGARET BRAMBILA RT(R) Service: ? Author [...] PATIENT PRESENTS WITH AN IMPLANTABLE OR ATTACHED INFORMATION TECHNOLOGY SPECIALIST: No RADIOLOGY DEPARTMENT: General X-ray: Exam(s) Completed: Upper Extremity X-Ray(s): Shoulder, AP / TRUE AP / AXILLARY right PERIPHERAL IV DATA: Not applicable SIGNED BY: RT Naye(R) October 18, 2024 9:53 [facility]12-11-2024 History of Present illness Narrative* Margaret [...] PATIENT PRESENTS WITH AN IMPLANTABLE OR ATTACHED INFORMATION TECHNOLOGY SPECIALIST: No RADIOLOGY DEPARTMENT: General X-ray: Exam(s) Completed: Upper Extremity X- Ray(s): Shoulder, AP / TRUE AP / AXILLARY right PERIPHERAL IV DATA: Not applicable SIGNED BY: RT Naye(R) October 18, 2024 9:53 AM documented [facility] Evaluation + Plan note Diagnostic Tests Pending * Rapid Plasma Reagin Test 09/29/24 * Rubella Antibody 09/29/24 * Varicella Zoster Antibody 09/29/24 * N. gonorrhoeae PCR 09/29/24 * Chlamydia trachomatis PCR 09/29/24 [facility] 03-25-2024 Note The microscopic examination is performed, except in the case of Gross Only. [facility] 03-25-2024 Note The microscopic examination is performed, except in the case of Gross Only. [facility] 03-22-2024 Note The microscopic examination is performed, except in the case of Gross Only. [facility] 03-22-2024 Note The microscopic examination is performed, except in the case of Gross Only. [facility] 03-22-2024 Note The microscopic examination is performed, except in the case of Gross Only. [facility] 03-22-2024 Note The microscopic examination is performed, except in the case of Gross Only. [facility] 03-22-2024 Note The microscopic examination is performed, except in the case of Gross Only. [facility] 07-14-2023 History of Present illness Narrative* Va [...] verified. Either the patient or their legal airline security representative has been informed of the risks, [...] Procedure Laterality Date EGD Upper endoscoscopy: Dr. GriffithPjmv-Vtpqh-Bngxufz Celiac Disease ELBOW SURGERY HX 2008 left [...] to participate in the care of Ritika Carmen Vega. Please do not hesitate to contact me if you have further concerns or questions. This chart has been routed to the referring provider electronically Va Beasley, MS, RD, MD, CCD, FACN, FACP, FACE Diplomate, [place] [employer] Diplomate, National Board of Physician Nutrition Specialists Endocrinology / / [facility] [address] Any part of this document that has been added/copied & pasted from other documents has been reviewed for accuracy and updated as appropriate at the time of the patient encounter [facility] + Plan note No data available for this section [facility] Evaluation note* Diagnosis Onset Date Resolution Status 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 [facility] Work Phone: Evaluation noteNo assessment information available [facility] Work Phone: Evaluation note* Diagnosis Onset Date Resolution Status Paresthesia acute 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 Work Phone: Evaluation note* Diagnosis Pain- Primary Generalized pain documented in this encounter [facility] note* Diagnosis Glenoid labral tear, right, initial encounter- Primary Tendinopathy of right rotator cuff documented in this encounter [facility] note* Diagnosis Glenoid labral tear, right, initial encounter Tendinopathy of right rotator cuff documented in this encounter [facility] note* Diagnosis Ovarian mass- Primary Unspecified noninflammatory disorder of ovary, fallopian tube, and broad ligament Mature cystic teratoma Benign neoplasm of unspecified site Primary female infertility Female infertility of unspecified origin Intra-abdominal and pelvic swelling, mass and lump, unspecified site documented in this encounter [facility] note* Diagnosis Intra-abdominal and pelvic swelling, mass and lump, unspecified site [facility] Diagnosis Glenoid labral tear, right, initial encounter- Primary Tendinopathy of right rotator cuff [facility] Diagnosis Postop check- Primary Follow-up examination, following unspecified surgery documented in this encounter [facility] note* Diagnosis Glenoid labral tear, right, initial encounter- Primary Tendinopathy of right rotator cuff documented in this encounter [facility] Discharge instructions No data available for this section [facility] Progress note No data available for this section [facility] Reason for referral (narrative)* Diagnostic Procedure Only (Routine) - New Request Specialty Diagnoses / Procedures Referred By Contac t Referred To Contact XR IMAGING Diagnoses Pain Procedures XR SHOULDER GENERAL 3V OR MORE AP/TRUE AP/OTHER RIGHT RADEX SHOULDER COMPLETE MINIMUM 2 VIEWS Daniel Bourgeois MD [address] [place] [address] Xr Imaging [place] [address] Referral ID Status Reason Start Date Expiration Date Visits Requested Visits Authorized [id number] New Request Auto-Generat ed Referral 4 11/02/2025 1 1 * Diagnostic Procedure Only (Routine) - New Request Specialty Diagnoses / Procedures Referred By Garry t Referred To Contact XR IMAGING Diagnoses Pain Procedures XR SHOULDER GENERAL 3V OR MORE AP/TRUE AP/OTHER LEFT RADEX SHOULDER COMPLETE MINIMUM 2 VIEWS Daniel Bourgeois MD [address] [place] [address] Xr Imaging [place] [address] Referral ID Status Reason Start Date Expiration Date Visits Requested Visits Authorized [id number] New Request Auto-Generat ed Referral 4 11/02/2025 1 1 [facility])No reason for referral information [facility] Work Phone: Reason for visit Narrative* Auth/Cert (Routine) Specialty Diagnoses / Procedures Referred By Garry kam Referred To Contact Diagnoses Intra-abdominal and pelvic swelling, mass and lump, unspecified site Intra-abdominal and pelvic swelling, mass and lump, unspecified site [R19.00] Procedures OR OVARIAN CYSTECTOMY UNI/BI LAPAROSCOPIC OVARIAN CYSTECTOMY Pedro Edwards MD [address] [address] [place] [address] Phone: tel: fax: Referral ID Status Reason Start Date Expiration Date Visits Re quested Visits Authorized [id number] 10/30/2024 1 1 [facility] for visit Narrative* Financial Clearance (Routine) - Closed Specialty Diagnoses / Procedures Referred By Garry kam Referred To Contact ORTHOPAEDIC SURGERY Diagnoses Tendinopathy of right rotator cuff Glenoid labral tear, right, initial encounter (S43.431A) Glenoid labral tear, right, initial encounter (M67.911) Tendinopathy of right rotator cuff Procedures NJX PLTLT PLASMA W/IMG HARVEST/PREPARATION PRP WITH US GUIDE - RIGHT SHOULDER Dee Glasgow, DO [address] [place] [address] Phone: tel: fax: Orthopaedics [address] [place] [address] Phone: tel: fax: Referral ID Status Reason Start Date Expiration Date V isits Requested Visits Authorized [id number] Closed Do Not Bill Insurance - SP patient Patient Cleared - True Self-Pay required payment collected 12/06/2024 03/25/2025 1 1 [facility] Summary Purpose Family History Relationship Condition Age [...] diffuse goiter without thyroto E ORDERS 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) Reason for Visit Thyrotoxicosis due t o Graves' disease Pre-conception counseling Encounter for routine gynecological examination Chief Complaint COUGH, CHILLS,ACHY EORDER 6 M FU Reason for Visit Influenza A Thyrotoxicosis due to Graves' disease Chief Complaint Admit Date EORDER October 18, 2024 1:51pm EORDER December 08, 2024 8 :25am 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) January 01, 2025 8:49am EORDER January 08, 2025 8:29 am Reason for Visit Admit Date Infertility January 01, 2025 8:49am Encounter for routine gynecological exam ination January 01, 2025 8:49am Chief Complaint Admit Date EORDER December 08, 2024 8 :25am 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) January 01, 2025 8:49am EORDER January 08, 2025 8:29 am 6 M FU February 15, 2025 8:2 9am E-ORDER March 15, 2025 8:30am Reason for Visit Admit Date Infertility January 01, 2025 8:49am Encounter for routine gynecological exam ination January 01, 2025 8:49am Thyrotoxicosis due to Graves' disease Ap ril 2024 8:29am Chief Complaint Admit Date EORDER December 08, 2024 8 :25am 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) January 01, 2025 8:49am EORDER January 08, 2025 8:29 am 6 M FU February 15, 2025 8:2 9am E-ORDER March 15, 2025 8:30am EORDERS March 28, 2025 8:40a m Chief Complaint Admit Date 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) January 01, 2025 8:49am EORDER January 08, [...] Date Thyrotoxicosis due to Graves' disease Ap 2024 8:29am Chief Complaint Admit Date E-ORDER March 15, 2025 8:30am EORDERS March 28, 2025 8:40a m EORDERS April 13, 2025 10:08 am EORDERS June 18, 2025 11 :10am Chief Complaint Admit Date E-ORDER March 15, 2025 8:30am EORDERS March 28, 2025 8:40a m EORDERS April 13, 2025 10:08 am EORDERS June 18, 2025 11 :10am EORDERS July 06, 2025 10 :10am Chief Complaint Admit Date EORDERS April 13, 2025 10:08 am EORDERS June 18, 2025 11 :10am EORDERS July 06, 2025 10 :10am EORDERS August 03, 2025 9:39am Reason for Referral Specialty Diagnoses / Procedures Referred By Garry t Referred To Contact MR IMAGING Diagnoses Glenoid labral tear, right, initial encounter Tendinopathy of right rotator cuff Procedures MRI SHOULDER WO IVCON RIGHT MRI ANY JT UPPER EXTREMITY W/O CONTRAST MATRL Dee Glasgow, DO [address] [place] [address] [place] [address] Referral ID Status Reason Start Date Expiration Date V isits Requested Visits Authorized [id number] Open Auto-Generate d Referral 10/18/2024 11/17/2025 1 1 Additional Source Comments INFORMATION SOURCE (unrecogn ized section and content) DATE CREATED AUTHOR 06/02/2019 [facility] DATE CREATED AUTHOR AUTHOR'S ORGANIZ ATION 09/29/2019 [facility] DATE CREATED AUTHOR AUTHOR'S ORGANIZ ATION 11/15/2020 [employer] DATE CREATED AUTHOR AUTHOR'S ORGANIZ ATION 03/29/2024 [facility] DATE CREATED AUTHOR AUTHOR'S ORGANIZ ATION 10/02/2024 [facility] DATE CREATED AUTHOR AUTHOR'S ORGANIZ ATION 10/23/2024 [facility] DATE CREATED AUTHOR AUTHOR'S ORGANIZ ATION 11/20/2024 [facility] DATE CREATED AUTHOR AUTHOR'S ORGANIZ ATION 12/29/2024 [facility] DATE CREATED AUTHOR AUTHOR'S ORGANIZ ATION 01/07/2025 [facility] DATE CREATED AUTHOR AUTHOR'S ORGANIZ ATION 03/24/2025 [facility] DATE CREATED AUTHOR AUTHOR'S ORGANIZ ATION 08/10/2025 [facility] Goals (unrecognized section and content) Goals may [...] Nacho Ferrera DO Primary Care Provider Active HEATHER FountainC Attending Provider, Referring Pr ovider Active Dr. Kirby Burrows MD Other Provider Active Team Status: Inactive Member Role Status Dates Nacho Ferrera DO Primary Care Provider Active Dr. True Prather MD Attending Provider Active Team Status: Inactive Member Role Status Dates Nacho Ferrera DO Primary Care Provider, Referring Provider Active Dr. Kirby Burrows MD Attending Provider Active Director Of Mechanical Engineering Relationship Specialty Start Date End Date Sandy [...] Nacho Ferrera DO Primary Care Provider Active Dandy Recih CNM Attending Provider, Referring Pr ovider Active Team Status: Active Member Role Status Dates Yony Phan MD Primary Care Provider Active Team Status: Inactive Member Role Status Perfecto Ferrera DO Referring Provider Active Dr. Kirby [...] Yony Phan MD Primary Care Provider Active Director Of Mechanical Engineering Relationship Specialty Start Date End Date Nacho Ferrera DO [address] [place] [address] PCP - General Family Medicine 10/03/24 Nacho Ferrera DO [address] [place] [address] Referring Family Medicine 10/03/24 Director Of Mechanical Engineering Relationship Specialty Start Date End Date Nacho Ferrera DO [address] [place] [address] PCP - General Family Medicine 10/03/24 Nacho Ferrera DO [address] [place] [address] Referring Family Medicine 10/03/24 Director Of Mechanical Engineering Relationship Specialty Start Date End Date Nacho Ferrera DO [address] [place] [address] PCP - General Family Medicine 10/03/24 Nacho Ferrera DO [address] [place] [address] Referring Family Medicine 10/03/24 Director Of Mechanical Engineering Relationship Specialty Start Date End Date Nacho Ferrera DO [address] [place] [address] PCP - General Family Medicine 10/03/24 Nacho Ferrera DO [address] [place] [address] Referring Family Medicine 10/03/24 Director Of Mechanical Engineering Relationship Specialty Start Date End Date Nacho Ferrera DO [address] [place] [address] PCP - General Family Medicine 10/03/24 Nacho Ferrera DO [address] [place] [address] Referring Family Medicine 10/03/24 Director Of Mechanical Engineering Relationship Specialty Start Date End Date Sandy Dawn DO PCP - General 10/20/17 Karie Ortiz MD [address] [place] [phone] Consulting Physician Gynecologic Oncology 10/26/24 Pedro Edwards MD [address] [place] [address] Consulting Physician Gynecologic Oncology 10/29/24 Director Of Mechanical Engineering Relationship Specialty Start Date End Date Karie Ortiz MD [address] [place] [address] Consulting Physician Gynecologic Oncology 10/26/24 Pedro Edwards MD [address] [place] [address] Consulting Physician Gynecologic Oncology 10/29/24 Director Of Mechanical Engineering Relationship Specialty Start Date End Date Nacho Ferrera DO [address] [place] [address] PCP - General Family Medicine 10/03/24 Nacho Ferrera DO [address] [place] [address] Referring Family Medicine 10/03/24 Director Of Mechanical Engineering Relationship Specialty Start Date End Date Karie Ortiz MD [address] [place] [phone] Consulting Physician Gynecologic Oncology 10/26/24 Pedro Edwards MD [address] [place], [place] [id number] Consulting Physician Gynecologic Oncology 10/29/24 Jazmyne Argueta, ONESIMO - JOB LITHOGRAPHER [address] [place], [place] [id number] Nurse Practitioner Nurse Practitioner 11/14/24 Team Status: [...] 2024 Team Status: Inactive Member Role Status Dates [...] March 15, 2025 End: March 15, 2025 Director Of Mechanical Engineering Relationship Specialty Start Date End Date Nacho Ferrera DO [address] [place] [address] PCP - General Family Medicine 10/03/24 Nacho Ferrera DO [address] [place] [address] Referring Family Medicine 10/03/24 Team Status: Inactive Member Role Status Perfecto Phan MD Primary Care Provider Active St art: March 28, 2025 End: March 28, 2025 ELIECER Fountain Attending Provider Active Start: March 28, 2025 End: March 28, 2025 Zuleyma Edmund , MACHINE STRIPER-C Referring Provider Active Start: March 28, 2025 [...] April 13, 2025 End: April 13, 2025 Director Of Mechanical Engineering Relationship Specialty Start Date End Date Nacho Ferrera DO [address] [place] [address] PCP - General Family Medicine 10/03/24 Nacho Ferrera DO [address] [place] [address] Referring Family Medicine 10/03/24 Team Status: Active Member Role Status Dates Kaci FITZGERALD, DO Primary Care Provider Active Team Status: Inactive Member Role Status Dates Kaci FITZGERALD, DO Primary Care Provider Active Start: April [...] Team Status: Inactive Member Role/Relationship Status Perfecto FITZGERALDC, DO Primary Care Provider Active Start: April 27, 2025 End: April 27, 2025 Dr. Kirby Burrows MD Attending Provider Active Sta rt: April 27, 2025 End: April 27, 2025 Dr. Kirby Burrows MD Referring Provider Active Sta rt: April 27, 2025 End: April 27, 2025 Team Status: Inactive Member Role/Relationship Status Perfecto FITZGERALDC, DO Primary Care Provider Active Start: May 10, 2025 End: May 10, 2025 Dr. Kirby Burrows MD Attending Provider Active Sta rt: May 10, 2025 End: May 10, 2025 Dr. Kirby Burrows MD Referring Provider Active Sta rt: May 10, 2025 End: May 10, 2025 Team Status: Inactive Member Role/Relationship Status Perfecto FITZGERALDC, DO Primary Care Provider Active Start: [...] Status: Inactive Member Role/Relationship Status Dates Kaci Iban VSC, DO Primary Care Provider Active Start: June 18, 2025 End: June 18, 2025 Dr. Kirby Burrows MD Attending Provider Active Sta rt: June 18, 2025 End: June 18, 2025 Dr. Kirby Burrows MD Referring Provider Active Sta rt: June 18, 2025 End: June 18, 2025 Team Status: Inactive Member Role/Relationship Status Dates Kaci Ferrera VSC, DO Primary Care Provider Active Start: July 06, 2025 End: July 06, 2025 Dr. Kirby Burrows MD Attending Provider Active Sta rt: July 06, 2025 End: July 06, 2025 Dr. Kirby Burrows MD Referring Provider Active Sta rt: July 06, 2025 End: July 06, 2025 Team Status: Active Member Role/Relationship Status Dates Kaci Ferrera VSC, DO Primary care physician Active Team Status: Inactive Member Role/Relationship Status Dates Yony Phan MD Primary care physician Active S tart: April 13, 2025 End: April 13, 2025 Dr. Kirby Burrows MD Attending physician Active St art: April 13, 2025 End: April 13, 2025 Dr. Kirby Burrows MD Referring Provider Active Sta rt: April 13, 2025 End: April 13, 2025 Team Status: Inactive Member Role/Relationship Status Dates Kaci Ferrera VSC, DO Primary care physician Active Start: April 27, 2025 End: April 27, 2025 Dr. Kirby Burrows MD Attending physician Active St art: April 27, 2025 End: April 27, 2025 Dr. Kirby Burrows MD Referring Provider Active Sta rt: April 27, 2025 End: April 27, 2025 Team Status: Inactive Member Role/Relationship Status Dates Kaci Ferrera VSC, DO Primary care physician Active Start: May 10, 2025 End: May 10, 2025 Dr. Kirby Burrows MD Attending physician Active St art: May 10, 2025 End: May 10, 2025 Dr. Kirby Burrows MD Referring Provider Active Sta rt: May 10, 2025 End: May 10, 2025 Team Status: Inactive Member Role/Relationship Status Dates Kaci Ferrera VSC, DO Primary care physician Active Start: May 25, 2025 End: May 25, 2025 Dr. Kirby Burrows MD Attending physician Active St art: May 25, 2025 End: May 25, 2025 Dr. Kirby Burrows MD Referring Provider Active Sta rt: May 25, 2025 End: May 25, 2025 Team Status: Inactive Member Role/Relationship Status Dates Kaci CHAMBERS, DO Primary care physician Active Start: June 18, 2025 End: June 18, 2025 Dr. Kirby Burrows MD Attending physician Active St art: June 18, 2025 End: June 18, 2025 Dr. Kirby Burrows MD Referring Provider Active Sta rt: June 18, 2025 End: June 18, 2025 Team Status: Inactive Member Role/Relationship Status Dates Kaci CHAMBERS, DO Primary care physician Active Start: July 06, 2025 End: July 06, 2025 Dr. Kirby Burrows MD Attending physician Active St art: July 06, 2025 End: July 06, 2025 Dr. Kirby Burrows MD Referring Provider Active Sta rt: July 06, 2025 End: July 06, 2025 Team Status: Inactive Member Role/Relationship Status Dates Kaci CHAMBERS, DO Primary care physician Active Start: August 03, 2025 End: August 03, 2025 Dr. Kirby Burrows MD Attending physician Active St art: August 03, 2025 End: August 03, 2025 Dr. Kirby Burrows MD Referring Provider Active Sta rt: August 03, 2025 End: August 03, 2025 Source Comments (unrecognize d section and content) In the event this informatio n is protected by the Federal Confidentiality of Alcohol and Drug Abuse Patient Records regulations: The Federal rules restrict any use of the information to criminally investigate or prosecute any alcohol or drug abuse patient.[facility] the event this information is protected by the Federal Confidentiality of Alcohol and Drug Abuse Patient Records regulations: The Federal rules restrict any use of the information to criminally investigate or prosecute any alcohol or drug abuse patient.[facility] the event this information is protected by the Federal Confidentiality of Alcohol and Drug Abuse Patient Records regulations: The Federal rules restrict any use of the information to criminally investigate or prosecute any alcohol or drug abuse patient.[facility]on[facility] the event this information is protected by the Federal Confidentiality of Alcohol and Drug Abuse Patient Records regulations: The Federal rules restrict any use of the information to criminally investigate or prosecute any alcohol or drug abuse patient.[facility]on[facility] the event this information is protected by the Federal Confidentiality of Alcohol and Drug Abuse Patient Records regulations: The Federal rules restrict any use of the information to criminally investigate or prosecute any alcohol or drug abuse patient.[facility]on[facility] the event this information is protected by the Federal Confidentiality of Alcohol and Drug Abuse Patient Records regulations: The Federal rules restrict any use of the information to criminally investigate or prosecute any alcohol or drug abuse patient.[facility]on[facility] the event this information is protected by the Federal Confidentiality of Alcohol and Drug Abuse Patient Records regulations: The Federal rules restrict any use of the information to criminally investigate or prosecute any alcohol or drug abuse patient.[facility]on[facility] the event this information is protected by the Federal Confidentiality of Alcohol and Drug Abuse Patient Records regulations: The Federal rules restrict any use of the information to criminally investigate or prosecute any alcohol or drug abuse patient.[facility]on[facility] the event this information is protected by the Federal Confidentiality of Alcohol and Drug Abuse Patient Records regulations: The Federal rules restrict any use of the information to criminally investigate or prosecute any alcohol or drug abuse patient.[facility]on[facility] the event this information is protected by the Federal Confidentiality of Alcohol and Drug Abuse Patient Records regulations: The Federal rules restrict any use of the information to criminally investigate or prosecute any alcohol or drug abuse patient.[facility]on[facility] the event this information is protected by the Federal Confidentiality of Alcohol and Drug Abuse Patient Records regulations: The Federal rules restrict any use of the information to criminally investigate or prosecute any alcohol or drug abuse patient.[facility] Reason for Visit (unrecogniz ed section and content) Reason Comments Graves Disease Specialty Diagnoses / Procedures Referred By Contac t Referred To Contact Endocrinology / ENDOCRINOLOGY Diagnoses Graves disease Graves Disease Procedures PHYS/QHP TELEPHONE EVALUATION 5-10 MIN [place] [address] [place] [address] Referral ID Status Reason Start Date Expiration Date V isits Requested Visits Authorized [id number] Denied Clearance Not Met - Admin/Chairm an/Director [...] W/O CONTRAST MATRL Dee Glasgow, DO [address] [place] [address] [place] [address] Referral ID Status Reason Start Date Expiration Date V isits Requested Visits Authorized [id number] Closed Auto-Generat ed Referral Clearance Not Met - Admin/Chairm an/Director Advise to Postpone/Res chedule or Not Proceed 10/25/2024 12/26/2024 1 1 Reason Comments Other Pelvic mass Specialty Diagnoses / Procedures Referred By Garry t Referred To Contact Gynecologic Oncology Diagnoses Right adnexal mass Procedures OR OFFICE/OUTPATIENT [facility] 60 MINUTES Inna Bustillos, DO [address] [place] [address] Phone: tel: fax: [facility] - [place] [address] [place] [address] Phone: tel: fax: Referral ID Status Reason Start Date Expiration Date Visits Re quested Visits Authorized [id number] Closed 10/26/2024 10/26/2025 1 1 Reason Comments [...] 1409, Intraprocedure 1409 (Given - Provid er: Pedor Edwards MD) ALPRAZolam (Xanax) disintegrating tablet 0.25 [...] BE BASED ON THE PRIMARY CLINICAL RECORDS. [employer] provides no warranty or guarantee of the accuracy or completeness of information in this document.
[2025-08-12 16:57] LABS: Anion Gap 11 (5-15); BUN 17 mg/dL (4-19); BUN/Creat Ratio 16.0 RATIO (10-20); Calcium,Total 8.9 mg/dL (7.6-11.0); Carbon Dioxide 23.3 mmol/L (21.0-32.0); Chloride 105 mmol/L (98-108); Estimated Creatinine Clearance 81.20 ml/min (50-250); Glucose 107 mg/dL (70-99); Potassium 4.3 mmol/L (3.3-5.1); Troponin T High Sensitivity < 6 ng/L (<=14)
--- NOTE | 2025-08-12 17:00 | RAD_ITS ---
PROCEDURE: CHEST PA AND LATERAL 08/12/2025 REASON FOR EXAM: CHEST PAIN TECHNIQUE: Procedure Code: RADCXR Modality: DX Procedure: CHEST PA AND LATERAL FINDINGS: No focal consolidation. No pleural effusion or pneumothorax. Cardiac silhouette is within normal limits. No acute fractures. RAD/Chest PA and Lateral IMPRESSION: No focal consolidations. Reading Location: [id number]
[2025-08-12 17:05] VITALS: BP 124/83; PULSE 57; RESP 14; O2SAT 100
[2025-08-12 17:09] LABS: Partial Thromboplast Time 26.7 Seconds (24.1-36.2); Prothrombin Time (Protime)PT. 13.7 SECONDS (11.7-14.9)
[2025-08-12 17:46] LABS: Pro- Brain NATRIURETIC PEPTIDE < 36 pg/mL (<=450)
[2025-08-12 17:46] LABS: D-Dimer Quantitative (DVT/PE) 0.27 FEU/ug/m (0.27-0.49)
[2025-08-12 17:51] LABS: Internal QC Validated? YES +Cl - CLEAR BKGD; Pregnancy, Serum, hCG Quali. NEGATIVE Negative; Record Kit Lot#, Serum Preg. 980607
[2025-08-12 18:00] VITALS: BP 114/77; PULSE 55; RESP 18; O2SAT 100
[2025-08-12 18:50] LABS: Troponin T High Sens 2 HR < 6 ng/L (<=14)
[2025-08-12 19:00] VITALS: BP 119/78; PULSE 56; RESP 16; O2SAT 92
[2025-08-12 19:59] VITALS: BP 122/86; PULSE 78; RESP 16; TEMP 36.6; O2SAT 100
== END 2025-08-12 20:08 | disposition home or self-care (01) ==
PROVIDERS: Emergency Provider Surgery; PCP Family Medicine; Visit Provider Surgery
DX: R07.89 Other chest pain (principal); R06.02 Shortness of breath; E05.00 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xic crisis or storm; K90.0 Celiac disease; Z79.3 Long term (current) use of hormonal contraceptives; Z79.890 Hormone replacement therapy
CPT/HCPCS: 71046; 80048; 83880; 84484; 84703; 85025; 85379; 85610; 85730; 93005; 99283; A4216

== ENCOUNTER → 2025-08-28 | Outpatient (CLI) | payer OTHER, SELFPAY ==
--- NOTE | 2025-08-28 06:45 | ECHOD_ITS ---
Reason For Study Reason For Study: ABNL EKG Procedure This was a 2D Doppler, Color Flow transthoracic echocardiogram. Exam performed in department. Left Ventricle Normal size and thickness. The left ventricular ejection fraction is 65 %. Normal diastololic function. Right Ventricle Normal right ventricle. Atria There is mild biatrial dilatation. Mitral Valve Moderate (2+) mitral valve insufficiency. Tricuspid Valve Mild (1+) tricuspid valve insufficiency. Normal pulmonary artery pressure. Aortic Valve Trisinus/trileaflet aortic valve. Pulmonic Valve The pulmonic valve is not well visualized. Great Vessels Normal sized aortic root. Pericardium/Pleural No pericardial effusion. MMode/2D Measurements & Calculations LVIDd: 5.1 cm IVSd: 0.83 cm Ao root diam: 3.3 cm LVIDs: 3.1 cm LVPWd: 0.89 cm RVDd: 3.3 cm FS: 39.1 % asc Aorta Diam: 3.4 cm LAV(MOD-bp): 55.5 ml LVAd ap4: 36.5 cm2 LAV(MOD-bp) Indexed: 29.0 ml/m2 LVLd ap4: 8.9 cm LAV(MOD-sp2): 57.8 ml EDV(MOD-sp4): 125.4 ml LAV(MOD-sp4): 53.1 ml EDV(sp4-el): 126.8 ml LVAs ap4: 16.7 cm2 LVLs ap4: 6.4 cm ESV(MOD-sp4): 38.5 ml ESV(sp4-el): 37.0 ml EF(MOD-sp4): 69.3 % EF(sp4-el): 70.8 % LVAd ap2: 33.0 cm2 SV(MOD-sp4): 86.9 ml SV(MOD-sp2): 77.7 ml LVLd ap2: 7.9 cm SI(MOD-sp4): 45.3 ml/m2 SI(MOD-sp2): 40.5 ml/m2 EDV(MOD-sp2): 115.1 ml EDV(sp2-el): 116.4 ml LVAs ap2: 16.6 cm2 LVLs ap2: 6.4 cm ESV(MOD-sp2): 37.4 ml ESV(sp2-el): 36.7 ml EF(MOD-sp2): 67.5 % SV(sp4-el): 89.8 ml LA dimension(2D): 3.2 cm LA A4 area: 18.8 cm2 RA A4 area: 14.2 cm2 TAPSE: 2.5 cm Time Measurements MV dec time: 0.17 sec Doppler Measurements & Calculations MV E max ivan: 117.5 cm/sec Lat Peak E' Ivan: 18.0 cm/sec Med Peak E' Ivan: 11.2 cm/sec MV A max ivan: 69.6 cm/sec E/E' lat: 6.5 E/E' med: 10.5 MV E/A: 1.7 Ao V2 max: 139.3 cm/sec LV V1 max: 123.4 cm/sec MR max ivan: 502.4 cm/sec Ao max P.8 mmHg LV V1 max P.1 mmHg MR max P.0 mmHg Ao V2 mean: 97.1 cm/sec LV V1 mean P.5 mmHg Ao mean P.3 mmHg LV V1 mean: 87.6 cm/sec Ao V2 VTI: 31.6 cm LV V1 VTI: 28.4 cm AV (velocity ratio): 0.90 PA V2 max: 95.0 cm/sec TR max ivan: 227.9 cm/sec TR max P.8 mmHg ECHO/Echo Complete Interpretation Summary The left ventricular ejection fraction is 65 %. Moderate (2+) mitral valve insufficiency. Mild (1+) tricuspid valve insufficiency. Ordering Physician: Justin Ramachandran Referring Physician: Kaci Ferrrea Performed By: Jenna Laws, DUY, RVT
--- OUTSIDE RECORDS SUMMARY | 2025-08-28 06:47 | XMS RPT_ITS | CCD ---
Author Organization [facility] Care Team Providers Care Freezer Assistant Name Role Phone Care Physician, No Primary Primary Care Provider Unavailable Care Physician, No Primary Referring Provider Un available Dr. Kirby Burrows Attending Provider Care Physician, No Primary Referring Provider Un available Dr. Kirby Burrows Attending Provider DO Nacho Ferrera M Primary Care Provider DO Nacho Ferrera M Primary Care Provider DO Nacho Ferrera M Referring Provider Dr. Kirby Burrows Attending Provider [phone] Sandy Dawn DO Primary Care Provider DO Nacho Ferrera M Primary Care Provider [phone] DO Nacho Ferrera M Referring Provider Dr. Kirby Burrows Attending Provider ADEBAYO Reich Attending Provider NACHO FERRERA DO Primary Care Physician DO Nacho Ferrera M Primary Care Provider [phone] DO Nacho Ferrera M Referring Provider MARYCARMEN Orta Attending Provider Dr. Kirby Burrows Attending Provider MD Yony Phan Primary Care Provider [phone] NACHO FERRERA DO Primary Care Unavailable TINO CHRISTIANSON Attending Unavailable INNA BUSTILLOS DO Attending Unavailable NAHCO FERRERA DO Primary Care Unavailable Iban , Nacho Alegria Unavailable Iban DO, Nacho Alegria Primary Care [...] Referring Provider NACHO FERRERA Primary Care Unavailabl DEE Rosas Attending Unavailable NACHO FERRERA Primary Care Unavailabl DEE Rosas Referring Unavailable DEE GLASGOW Attending Unavailable DANIEL BOURGEOIS Referring Unavailable NACHO FERRERA Primary Care Unavailabl e IBANNACHO PRICILA Primary Care Unavailabl e DEE GLASGOW Attending Unavailable IBAN, NACHO PRICILA Primary Care Unavailabl e DEE GLASGOW Referring Unavailable Bravo TRACTOR MECHANIC HELPER-C, Zuleyma Attending Provider Bravo TRACTOR MECHANIC HELPER-C, Zuleyma Referring Provider Emilie LYLES, Yony Primary Care Provider King RAFAL, Dr. Orr Attending Provider King RAFAL, Dr. Orr Referring Provider [facility], [facility] Primary Care Provider Emilie LYLES, [facility] Primary Care Provider Emilie LYLES, Yony Referring Provider King RAFAL, Dr. Orr Attending Provider King RAFAL, Dr. Orr Referring Provider Emilie LYLES, [facility] Primary Care Provider Dr. Kirby Burrows MD Attending Provider Emilie LYLES, [facility] Primary Care Physician [phone] King RAFAL, Dr. Orr Attending Physician Dr. Kirby Burrows MD Referring Provider Iban [facility] Physician King RAFAL, Dr. Orr Attending Physician Dr. Kirby Burrows MD Referring Provider Dr. Zachary Ceron DO Emergency Departmen t Physician [facility], [facility] Primary Care Unavailable Zachary Ceron Attending Unavailabl e Markos, Kirby Referring Unavailable Markos, Kirby [facility] Primary Care Unavailable Markos, Kirby Referring Unavailable Markos, Kirby Attending [facility], [facility]aci Primary Care Unavailable Markos, Kirby Attending Unavailable Markos, Kirby Referring Unavailable Iban [facility], [facility] Primary Care Unavailable Markos, Kirby Attending Unavailable Markos, Kirby Referring Unavailable Markos, Kirby Attending Unavailable Iban [facility], Kaci Primary Care Unavailable Markos, Kirby Referring Unavailable Markos, Kirby Attending Unavailable Markos, Kirby Referring Unavailable Iban VS, Kaci Primary Care Unavailable Iban VSC, Kaci Primary Care Unavailable Madie, Joy Referring Unavailable Joy Ramachandran Attending Unavailable Markos, Kirby Referring Unavailable Emilie, Chalon Primary Care Unavailable Markos, Kirby Attending Unavailable Markos, Kirby Referring Unavailable Emilie, Chalon Primary Care Unavailable Markos, Kirby Attending Unavailable Ibna VSC, Kaci Primary Care Unavailable Emilie, Chalon Referring Unavailable Markos, Kirby Attending Unavailable Markos, Kirby Referring Unavailable Emilie, Chalon Primary Care Unavailable Markos, Kirby Attending Unavailable Markos, Kirby Referring Unavailable Emilie, Chalon Primary Care Unavailable Markos, Kirby Attending Unavailable Markos, Kirby Referring Unavailable Emilie, Chalon Primary Care Unavailable Markos, Kirby Attending Unavailable Bravo, Zuleyma Referring Unavailable Bravo, Zuleyma Attending Unavailable Emilie, Chalon Primary Care Unavailable Iban VS, Kaci Referring Unavailable Iban VSC, Kaci Primary Care Unavailable Madie, Joy Attending Unavailable Emilie, Chalon Primary Care Unavailable Emilie, Chalon Referring Unavailable Markos, Kirby Attending Unavailable Emilie, Chalon Referring Unavailable Emilie, Chalon Primary Care Unavailable Earnestine Hernandez Attending Unavailable Markos, Kirby Referring Unavailable Emilie, Chalon Primary Care Unavailable Markos, Kirby Attending Unavailable Allergies Allergy Classification Reported Allergen(s) Allergy Type Date of Onset Reaction(s) Facility (4 sources) Gluten Propensity to adverse reactions 11-03-2024 [facility] Medications Current Medications Medication Drug [...] in the nose once daily. Desogestrel-Ethinyl Estradiol (10 sources) Progestin, Estrogen Start: 02-15-2025 take 0.15 [...] 11/16/2024 Active take 2 tablets by mo [facility] every eight hours as needed for pain ibuprofen 200 MG tablet Take 400 mg by mouth every 8 hours as needed for mild pain (1-3). Active Magnesium (3 sources) take 240 mg by mouth once daily MAGNESIUM PO Take 240 mg by mouth daily. Active [place]-3 Fatty Acids (Fish Oil Concentrate) 1,000 mg capsule (20 sources) Start: 12-12-2019 take 1 capsule by mouth once daily Start: 12-12-2019 take 1 capsule by mo [facility] once daily [place]-3 Fatty Acids (Fish Oil Concentrate) 1,000 mg capsule Active 1000 mg PO DAILY December 12, 2019 1:00am Start: 12-12-2019 take 1 capsule by [facility] once daily [place]-3 Fatty Acids (Fish Oil Concentrate) 1,000 mg capsule Active 1000 MG PO DAILY December 12, 2019 12:00am Start: 12-12-2019 take 1 capsule by [facility] once daily [place]-3 Fatty Acids (Fish Oil Concentrate) 1,000 mg capsule Active 1000 MG PO DAILY December 12, 2019 1:00am [place]-3 Fatty Acids (Fish Oi l) 1000 MG capsule delayed-release (3 sources) [place]-3 Fatty Ac ids (Fish Oil) 1000 MG [...] Comment on above: [facility] 1,[facility]. oxyCODONE hydrochloride 5 mg [...] 11/06/2024 4:17 PM EST 11/06/2024 11/11/2024 Active Tljsad09-Gaye Fum-Folic Ac-Om3 (One A Day Women's Dha) 28 mg iron- 800 mcg combo pack (8 sources) Start: 07-28-2024 Cywlgn56-Bqvh Fum-Folic Ac-Om3 (One A Day Women's Dha) 28 mg iron- 800 mcg combo pack Active NMA PO July 28, 2024 12:00am 75-Iron Uza-Remud-Yz7 (One A Day Women's Dha) 28 mg iron- 800 mcg combo pack (3 sources) Start: 07-28-2024 Start: 07-28-2024 75-Ir on Obn-Jhhhn-Yy3 (One A Day Women's Dha) 28 mg [...] TIMES A DAY May 10, 2025 2:16pm August 06, 2025 8:49am Start: 03-28-2025 End: 04-27-2025 take 2 tablets by mouth once daily, then take 3 tablets by mouth once daily Propylthiouracil 50 mg tablet Discontinued 0 PO daily March 28, 2025 4:37pm April 27, 2025 [...] once daily. ubidecarenone 10 mg oral capsule (11 sources) Start: 07-28-2024 vitamin b12 1 mg oral tablet (11 sources) Vitamin B12 take 1 tablet by mouth once daily cyanocobalamin (VITAMIN B-12) 1,000 mcg tab Take 1,000 mcg by mouth once daily. Active Comment on above: Take 1,000 mcg by [facility] once daily. Completed/Discontinued Medications Medication Drug Class(es) [...] mg / clavulanate 125 mg oral tablet (11 sources) Penicillin-class Antibacterial Start: 04-19-2024 End: 07-28-2024 [...] min PRN, moderate pain (4-6), Starting on 11/06/24 at 1426, For 3 doses, Recovery (only), [...] mg tablet Discontinued 10 mg PO DAILY 90 October 15, 2022 12:01pm February 08, 2023 7:39am Comment on above: Take 1 tablet by catherine once daily. 2 ml ondansetron 2 mg/ml injection (14 sources) Serotonin-3 Receptor Antagonist Start: 11-06-2024 End: [...] 2024 8:38am oseltamivir 75 mg oral capsule (12 sources) Neuraminidase Inhibitor Start: 12-29-2023 End: 01-03-2024 [...] Da te Episodic/Chronic Contraceptive and procreative management (14 sources) Patient encounter status; Translations: [Encounter for other general counseling and advice on procreation] 11-11-2023 Episodic Comment on above: to discuss with endo changing medications for hyperthyroidism-start on PNV-reviewed natural cycles and ways to optimize fertility. Female infertility (14 sources) Primary female infertility; Translations: [Female infertility, unspecified] Onset: 10-29-2024 Chronic Heart valve disorders (1 source) Cardiac murmur, unspecified; Translations: [Cardiac murmur, unspecified] Onset: 5 Episodic Influenza (13 sources) Influenza due to Influenza A virus; Translations: [Influenza due to other identified influenza virus with other respiratory manifestations] 12-29-2023 Episodic Nonspecific chest pain (4 sources) Chest pain; Translations: [Chest pain, unspecified] Onset: 5 08-12-2025 Episodic Osteoarthritis (20 sources) Arthritis of left elbow; Translations: [Primary osteoarthritis, left elbow] Onset: 6 04-07-2016 Chronic Other aftercare (1 source) Surgical follow-up; Translations: [Encounter for follow-up examination after completed treatment for conditions other than malignant neoplasm] 11-14-2024 Episodic Other and unspecified benign neoplasm (3 sources) Benign neoplasm, unspecified site; Translations: [Benign neoplasm of unspecified site] Onset: 4 10-29-2024 Episodic Other connective tissue disease (3 sources) Supraspinatus tendinitis 08-30-2023 Episodic Other connective tissue disease (5 sources) Disorder of rotator cuff; Translations: [Unspecified disorder of synovium and tendon, right shoulder] 10-18-2024 Episodic Other connective tissue disease (1 source) Unspecified disorder of synovium and tendon, right shoulder; Translations: [Tendinopathy of right rotator cuff] Onset: 5 Episodic Other female genital disorders (1 source) Mass of ovary; Translations: [Other noninflammatory disorders of ovary, fallopian tube and broad ligament] 10-29-2024 Episodic Other female genital disorders (2 sources) Other noninflammatory disorders of ovary, fallopian tube and broad ligament; Translations: [Other noninflammatory disorders of ovary, fallopian tube and broad ligament] Onset: 4 Episodic Other gastrointestinal disorders (12 sources) Celiac disease; Translations: [Celiac disease] Onset: 9 05-21-2023 Chronic Other gastrointestinal disorders (2 sources) Other fecal abnormalities; Translations: [Other fecal abnormalities] Onset: 4 Episodic Other gastrointestinal disorders (3 sources) Finding of abdominopelvic segment of trunk; Translations: [Intra-abdominal and pelvic swelling, mass and lump, unspecified site] Onset: 4 11-06-2024 Episodic Other gastrointestinal disorders (1 source) Intra-abdominal and pelvic swelling, mass and lump, unspecified site; Translations: [Intra-abdominal and pelvic swelling, mass and lump, unspecified site] Onset: 4 Episodic Other lower respiratory disease (12 sources) Cough; Translations: [Cough] 12-29-2023 Episodic Other nervous system disorders (20 sources) Paresthesia; Translations: [Paresthesia of skin] 10-08-2022 Episodic Other nervous system disorders (2 sources) Paresthesia of skin; Translations: [Disturbance of skin sensation] Episodic Other non-traumatic joint disorders (11 sources) Loose body in left elbow joint; Translations: [Loose body in left elbow] Onset: 1 08-05-2021 Chronic Other screening for suspected conditions (not mental disorders or infectious disease) (2 sources) Abnormal electrocardiogram [ECG] [EKG]; Translations: [Abnormal electrocardiogram [ECG] [EKG]] Onset: 5 Episodic Other upper respiratory disease (12 sources) Respiratory tract congestion; Translations: [Other specified diseases of upper respiratory tract] 12-29-2023 Episodic Otitis media and related conditions (11 sources) Acute right otitis media; Translations: [Otitis media, unspecified, right ear] 04-19-2024 Episodic Residual codes; unclassified (12 sources) Generalized aches and pains; Translations: [Pain, unspecified] 12-29-2023 Episodic Residual codes; unclassified (1 source) Pain; Translations: [Pain, unspecified] 10-03-2024 Episodic Residual codes; unclassified (16 sources) Infertile 01-01-2025 Episodic Comment on above: Following with RGSarah Cardenas gg supply and quality fair, semen analysis abnormal prev. ap utd, declines sti screening. Sprains and strains (6 sources) Glenoid labrum tear; Translations: [Superior glenoid labrum lesion of right shoulder, initial encounter] Onset: 5 10-18-2024 Episodic Thyroid disorders (20 sources) Thyrotoxicosis due to Graves' disease; Translations: [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xic crisis or storm] Onset: 8 Chronic Unclassified (2 sources) Post-op Visit; Translations: [Post-op Visit] Onset: 5 Past or Other Problems Problem Classification Problem Date Documented Da te Episodic/Chronic Residual codes; unclassified (1 source) Pain, unspecified; Translations: [Pain] Onset: 10-18-2024 Episodic Results Test Name Value Interpretation Reference Range Facility Cardiology Visit Reporton Cardiology Visit Report [facility] [address] [place] [address] OFFICE VISIT Date of Service: 08/24/25 MR#: [id number] Acct: [id number] Name: RITIKA VEGA Rep #: [id number] : 1985 Provider: Dr. Joy sauceda MD Age/Sex: 39/F Location[place] [facility] Status: Signed HPI HPI History of Present Illness Details: Patient is a very pleasant 39-year-old white female that comes in today for new patient visit for preop clearance. Patient is scheduled for IVF transfer under anesthesia September 05, 2025. Patient carries a history of chest discomfort that she was evaluated in the emergency department August 12, 2025. This has been going on for several days it was episodic. It been going on for several hours when she was evaluated in the emergency department and her troponin was less than 6 her BNP was 36. There was no definitive evidence of ischemia. However, her ECG showed anterior T wave inversions. The patient is now referred for preop clearance. The patient play [employer] volleyball without any restrictions. She had historically been doing heavy weight lifting but is now still lifting weights but not as intensely as she did in the past she does do a aerobic training with light weights and rapid reps. She has had no documented drop- off in her exercise tolerance she can easily walk 2 flights of stairs with no restrictions. She denies any significant dyspnea on exertion. The chest symptoms are atypical and not consistent with coronary ischemia. Patient does have a family history of coronary disease she does not have a history of hypertension hyperlipidemia diabetes or smoking. She does have a history of Graves' disease is treated by Dr. Kirby Burrows and is on propylthiouracil. She reports her thyroid was well-controlled at her last visit. Intake Vital Signs 08/17/25 08:32 08/24/25 07:00 Height 5 ft 11 in 5 ft 11 in Weight: 163 lb 2 oz 164 lb BMI 22.7 22.8 BP 116/77 117/76 Blood Pressure Location Lt brachial Lt brachial Position Sitting Sitting Respiration 18 Pulse 58 L 65 Pulse Source Monitor Monitor Pulse Oximetry (%) 98 98 Oxygen Delivery Method room air Intake Visit Reasons: CP S/P [facility] 08/12; ENDOCRINOLOGY 08/17, SEE NOTES Body Coverer Required: No Is patient in pain?: No Allergies No Known Allergies Allergy (Verified 08/24/25 11:37) Medications ???Medication ???Instructions ???Recorded ???Confirmed ???Type omega-3 fatty acids 1,000 mg 1,000 mg PO DAILY 12/12/19 5 History capsule (Fish Oil Concentrate) vits 75-iron 28 mg-folic pkg PO 07/28/24 08/24/25 History acid 800 mcg-omega-3 oral combo pack (One A Day Women's DHA) propylthiouracil 50 mg tablet See Rx Instructions PO TID #204 08/24/25 Rx tabs Have you fallen in the past year?: No PFSH Medical History Paresthesia Graves disease [...] in: other frequency: 3-4 times per week dina/tenriism: Mosque seatbelt use: always do you feel safe at home: Yes 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 Normal [facility] Endocrinology Visit Reporton 08-17-2025 Endocrinology Visit Report [facility] [address] [place] [address] OFFICE VISIT Date of Service: 08/17/25 MR#: [id number] Acct: [id number] Name: RITIKA VEGA Rep #: [id number] : 1985 Provider: Carmen Fortune Age/Sex: 39/F Location: [facility] [place] Status: Signed Intake Vital Signs 02/15/25 08:35 08/12/25 16:05 08/17/25 08:32 Height 5 ft 11 in 5 ft 11 in 5 ft 11 in Weight: 163 lb 2 oz BMI 22.7 BP 116/77 Blood Pressure Location Lt brachial Position Sitting Pulse 58 L Pulse Source Monitor Pulse Oximetry (%) 98 Oxygen Delivery Method room air Intake Visit Reasons: 6 M FU Chief Complaint: Hyperthyroidism Is patient in pain?: No Allergies No Known Allergies Allergy (Verified 08/17/25 08:32) Medications ???Medication ???Instructions ???Recorded ???Confirmed ???Type omega-3 fatty acids 1,000 mg 1,000 mg PO DAILY 12/12/19 5 History capsule (Fish Oil Concentrate) coenzyme Q10 10 mg capsule (Co 10 mg PO ONCE 07/28/24 08/17/25 Hi story Q-10) vits 75-iron 28 mg-folic pkg PO 07/28/24 08/17/25 History acid 800 mcg-omega-3 oral combo pack (One A Day Women's DHA) propylthiouracil 50 mg tablet See Rx Instructions PO TID #204 08/17/25 Rx tabs PFSH Medical History Paresthesia Graves disease Celiac [...] in: other frequency: 3-4 times per week dina/tenriism: Mosque seatbelt use: always do you feel safe at home: Yes 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 She has Grave's disease currently treated with PTU. She is undergoing IVF and transfer is scheduled for 09.05 She will have more labs done prior to transfer. She was seen in ED with chest tightness. Labs were negative for acute ischemia, but EKG is abnormal. She is scheduled to see cardiology after embryo transfer. ROS Const Constitutional: No fatigue or weight change ENT ENT: No dizziness/vertigo Cardio Cardiology: Positive for chest pain at rest (see HPI), shortness of breath and palpitations; No chest pain with exertion Skin Skin: No wounds Endo Endocrine: No [...] movement, no audible wheezes and no cough Auscultation: Bilateral: Clear to Auscultation Cardio Rate: regular rate Rhythm: regular rhythm Skin General: no rashes or lesions noted Neuro General: patient alert, patient awake and patient oriented x3 Cranial Nerves: CN's II-XI intact bilaterally Cognition: normal cognition Speech: speech normal Gait: normal gait Juanita (more content not included)... Normal [facility] 12 Lead EKGon 08-12-2025 12 Lead EKG [facility] Cardiovascular Services [address] [place] [address] 12 Lead EKG 08/12/25 1614 MR#: [id number] Acct: [id number] Name: RITIKA VEGA Rep #: [id number] : 1985 39 From: Chaz Mckeon MD Attending Dr: Status: DEP ER Ordering Dr: Zachary Ceron DO Date: 5 Location: ED Sex: F C Admitted: Test Reason : Blood Pressure : */* mmHG Vent. Rate : 56 BPM Atrial Rate : 56 BPM P-R Int : 154 ms QRS Dur : 90 ms QT Int : 432 ms P-R-T Axes : 22 60 7 degrees QTcB Int : 416 ms Sinus bradycardia T wave abnormality, consider anterior ischemia Abnormal ECG Confirmed by CHAZ MCKEON MD ([id number]), publishing editor CLINTON VERMA ([id number]) on 08/13/2025 8:37:23 AM Referred By: Confirmed By: CHAZ MCKEON MD 08/13/25 0837 Date Chaz Mckeon MD CC: Dr. Zachary Ceron DO; Kaci Ferrera DO Signed Normal [facility] Absolute lymphocyte countOrd ered By: Zachary Ceron on 08-12-2025 Lymphocytes Auto (Unsp spec) [#/Vol] 2.44 10*3/uL 0.83-4.51 [facility] Absolute neutrophil countOrd ered By: Zachary Ceron on 08-12-2025 Neutrophils (Bld) [#/Vol] 2.9 10*3/uL 2.0-7.7 [facility] Activated partial thrombopla stin time (aPTT) in platelet poor plasma by coagulation aOrdered By: Zachary Ceron on 08-12-2025 aPTT Coag (PPP) [Time] 26.7 s 24.1-36.2 [facility] Anion gap in Serum or Plasma Ordered By: Zachary Ceron on 08-12-2025 Anion gap [Moles/Vol] 11 mmol/L 5-15 [place] Automated lymphocyte count a s percentage of total leukocytesOrdered By: Zachary Ceron on 08-12-2025 Lymphocytes/100 WBC Auto (Unsp spec) 41.7 % High 19-41 [facility] BUN/creatinine ratioOrdered By: Zachary Ceron on 08-12-2025 Urea nitrogen/Creatinine [Mass ratio] 16.0 mg/mg - [facility] Basic Metabolic Profile (BMP )on 08-12-2025 BUN/CRE 16.0 RATIO Normal 08-27 [facility] Comment on above: Performed By: #### L 506.0400, [id number] #### [facility] [address] [place], [address] Calcium [Mass/Vol] 8.9 mg/dL Normal 7.6-11.0 [facility] Comment on above: Performed By: #### L 506.0400, [id number] #### [facility] [address] [place], [address] Chloride [Moles/Vol] 105 mmol/L Normal 98-108 [facility] Comment on above: Performed By: #### L 506.0400, [id number] #### [facility] [address] [place], [address] CO2 [Moles/Vol] 23.3 mmol/L Normal 21.0-32.0 [facility] Comment on above: Performed By: #### L 506.0400, [id number] #### [facility] [address] [place], [address] Creatinine [Mass/Vol] 1.05 mg/dL Normal 0.70-1.20 [place] Comment on above: Performed By: #### L 506.0400, [id number] #### [facility] [address] [place], [address] ECRCL 81.20 ml/min Normal 50-250 [facility] Comment on above: Performed By: #### L 506.0400, [id number] #### [facility] [address] [place], [address] GAP 11 Normal 5-15 [facility] Comment on above: Performed By: #### L 506.0400, [id number] #### [facility] [address] [place], [address] GFR/1.73 sq M.predicted among non-blacks MDRD (S/P/Bld) [Vol rate/Area] 70 mL/min/{1.73_m2} Normal >60 [facility] Comment on above: Result Comment: mL/m in/1.73m2 CKD-EPI Creatinine Equation (2020) Performed By: #### L 506.0400, [id number] #### [facility] [address] [place], [address] Glucose [Mass/Vol] 107 mg/dL High 70-99 [facility] Comment on above: Performed By: #### L 506.0400, [id number] #### [facility] [address] [place], [address] Potassium [Moles/Vol] 4.3 mmol/L Normal 3.3-5.1 [place] Comment on above: Performed By: #### L 506.0400, L501.79621 #### [facility] [address] [place], [address] Sodium [Moles/Vol] 139 mmol/L Normal 133-145 [facility] Comment on above: Performed By: #### L 506.0400, L501.57932 #### [facility] [address] [place], [address] Urea nitrogen [Mass/Vol] 17 mg/dL Normal 4-19 [facility] Comment on above: Performed By: #### L 506.0400, L501.87120 #### [facility] [address] [place], [address] Basophil percentageOrdered B y: Zachary Ceron on 08-12-2025 Basophils/100 WBC (Bld) 0.7 % 0-[address] [facility] CBC W/Diff, Automatedon Absolute Lymph 2.44 X10 3/uL Normal 0.83-4.51 [facility] Comment on above: Performed By: #### L 506.0400, L501.48215 #### [facility] [address] [place], [address] Absolute Neut 2.9 X10 3/uL Normal 2.0-7.7 [facility] Comment on above: Performed By: #### L 506.0400, L501.41660 #### [facility] [address] [place], [address] Basophils/100 WBC (Bld) 0.7 % Normal 0-[address] [facility] Comment on above: Performed By: #### L 506.0400, L5.36330 #### [facility] [address] [place], [address] Eosinophils/100 WBC (Bld) 2.6 % Normal 0-5 [facility] Comment on above: Performed By: #### L 506.0400, L5.09802 #### [facility] [address] [place], [address] Erythrocyte distribution width (RBC) [Ratio] 12.0 % Normal 11.6-14.6 [facility] Comment on above: Performed By: #### L 506.0400, L5.87937 #### [facility] [address] [place], [address] Hematocrit (Bld) [Volume fraction] 36.3 % Low 37-47 [facility] Comment on above: Performed By: #### L 506.0400, L5.70358 #### [facility] [address] [place], [address] Hemoglobin (Bld) [Mass/Vol] 12.5 g/dL Normal 12.0-15.0 [facility] Comment on above: Performed By: #### L 506.0400, L501.68639 #### [facility] [address] [place], [address] IG% 0.200 Normal 0.0-0.9 [facility] Comment on above: Result Comment: IG% - Immature Granulocytes (promyelocytes, myelocytes and metamyelocytes) > 1% indicates that a LEFT SHIFT is Present. Performed By: #### L 506.0400, L501.21987 #### [facility] [address] [place], [address] Lymphocytes/100 WBC (Bld) 41.7 % High 19-41 [facility] Comment on above: Performed By: #### L 506.0400, L5.40678 #### [facility] [address] [place], [address] MCH (RBC) [Entitic mass] 32.8 pg High 27.0-32.0 [facility] Comment on above: Performed By: #### L 506.0400, L5.48930 #### [facility] [address] [place], [address] MCHC (RBC) [Mass/Vol] 34.4 g/dL Normal 32-36 [place] Comment on above: Performed By: #### L 506.0400, L501.19280 #### [facility] [address] [place], [address] MCV (RBC) [Entitic vol] 95.3 fL Normal 81-[address] [facility] Comment on above: Performed By: #### L 506.0400, L501.01631 #### [facility] [address] [place], [address] Monocytes/100 WBC (Bld) 4.6 % Normal 0-[address] [facility] Comment on above: Performed By: #### L 506.0400, L501.34021 #### [facility] [address] [place], [address] Neutrophils/100 WBC (Bld) 50.2 % Normal 47-70 [facility] Comment on above: Performed By: #### L 506.0400, L501.18676 #### [facility] [address] [place], [address] Nucleated RBC (Bld) [#/Vol] 0 10*3/uL Normal 0-5 [facility] Comment on above: Performed By: #### L 506.0400, L501.47852 #### [facility] [address] [place], [address] Platelet mean volume (Bld) [Entitic vol] 9.5 fL Normal 6.2-12.0 [facility] Comment on above: Performed By: #### L 506.0400, L501.45606 #### [facility] [address] [place], [address] Platelets (Bld) [#/Vol] 247 10*3/uL Normal 150-450 [facility] Comment on above: Performed By: #### L 506.0400, L501.09241 #### [facility] [address] [place], [address] RBC (Bld) [#/Vol] 3.81 10*6/uL Low 4.2-5.4 [facility] Comment on above: Performed By: #### L 506.0400, L501.68769 #### [facility] [address] [place], [address] RDW SD 42.1 fl Normal 35.1-43.9 [facility] Comment on above: Performed By: #### L 506.0400, L501.63047 #### [facility] [address] [place], [address] WBC (Bld) [#/Vol] 5.9 10*3/uL Normal 4.4-11.0 [facility] Comment on above: Performed By: #### L 506.0400, L501.92794 #### [facility] [address] [place], [address] Carbon dioxide, total [Moles /volume] in Central venous bloodOrdered By: Zachary Ceron on 08-12-2025 CO2 [Moles/Vol] 23.3 mmol/L 21.0-32.0 [facility] Chest PA and Lateralon 08-12 Chest PA and Lateral [facility] Imaging Services [address] [place] [address] Chest PA and Lateral MR#: [id number] Acct: [id number] Name: RITIKA EVGA Rep #: [id number] : 1985 F 39 From: Feli Ruiz PCP: Kaci Ferrera DO Status: REG ER Study: Chest PA and Lateral Date of Exam: 08/12/25 Exam# [id number] Ordering Dr: Zachary Ceron DO PROCEDURE: CHEST PA AND LATERAL 08/12/2025 REASON FOR EXAM: CHEST PAIN TECHNIQUE: Procedure Code: RADCXR Modality: DX Procedure: CHEST PA AND LATERAL FINDINGS: No focal consolidation. No pleural effusion or pneumothorax. Cardiac silhouette is within normal limits. No acute fractures. RAD/Chest PA and Lateral IMPRESSION: No focal consolidations. Reading Location: [facility] CC: Dr. 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 Performed By: #### L 506.0400, L501.84941, L501.9520 #### [facility] [address] [place], [address] Electrocardiogram reportOrde red By: Chaz Mckeon on 08-12-2025 EKG study [facility] Cardiovascular Services [address] [place] [address] 12 Lead EKG 08/12/25 1614 MR#: [id number] Acct: [id number] Name: RITIKA VEGA Rep #:[id number] : 1985 39 From: Chaz Mckeon MD Attending Dr: Status: DEP E R Ordering Dr: Zachary Ceron ate: 08/12/25 Location: ED Sex: F C Admitted: Test Reason : Blood Pressure : */* mmHG Vent. Rate : 56 BPM Atrial Rate : 56 BPM P-R Int : 154 ms QRS Dur : 90 ms QT Int : 432 ms P-R-T Axes : 22 60 7 degrees QTcB Int : 416 ms Sinus bradycardia T wave abnormality, consider anterior ischemia Abnormal ECG Confirmed by CHAZ MCKEON MD ([id number]), publishing editor CLINTON VERMA ([id number]) on 08/13/2025 8:37:23 AM Referred By: Confirmed By: CHAZ MCKEON MD 08/13/25 0837 Date _ Chaz Mckeon MD CC: Dr. Zachary Ceron DO; Kaci Ferrera DO ~ Signed [facility] Other Phone: Emergency Department Summary on 08-12-2025 Emergency Department Summary [facility] Medical Records Department [address] [place] [address] Emergency Department Summary 08/12/25 MR#: [id number] Acct: [id number] Name: RITIKA VEGA Rep #: [id number] : 1985 39 From: Zachary Ceron DO PCP: Kaci Ferrera DO Status:REG ER Location: ED HPI History of Present Illness Chief Complaint: Chest Pain Narrative Narrative: Chief complaint and HPI: 39-year-old female with past medical history of Graves' disease presents for evaluation of sternal chest pain. Patient states for the past several days she has been having sternal chest pain. Describes it as tight. States it was originally only present when lying down however today became constant. Associated symptom is mild shortness of breath. She states she has a family history of heart disease. Non-smoker. She is on control as she is involved in infertility treatment. Denies a history of DVT/PE, blood clotting disorder, recent trauma or surgery, unilateral leg swelling, travel. She denies any fever, chills, abdominal pain, nausea, vomiting. States it does not feel like acid reflux. Has not taken anything for the pain. Review of systems: See HPI Medications: As listed on the chart Allergies: As listed on the chart PFSH: Per chart Vital signs: As listed on the chart. Reviewed. Physical exam: Gen: A O x3, NAD Head: Normocephalic, atraumatic Eyes: No sclera icterus, conjunctiva clear ENT: Moist mucous membranes Neck: Trachea midline CV: RRR, no murmurs, no peripheral edema, chest pain nonreproducible on physical exam Resp: Lungs CTA BL, no w/r/c GI: Abd soft, non-distended, non-tender, no r/r/g Musc: Full ROM, no deformity Skin: Warm, dry Neuro: Alert, oriented, grossly intact, sensation intact Psych: Cooperative, appropriate mood and affect [facility] Medical History Paresthesia Graves disease Celiac disease Heart murmur GI problem Anemia Seasonal allergies Home Medications ???Medication ???Instructions ???Recorded ???Last Taken ???Type omega-3 fatty acids 1,000 mg 1,000 mg PO DAILY 12/12/19 Unknown History capsule (Fish Oil Concentrate) coenzyme Q10 10 mg capsule (Co 10 mg PO ONCE 07/28/24 Unknown His tory Q-10) vits 75-iron 28 mg-folic pkg PO 07/28/24 Unknown History acid 800 mcg-omega-3 oral combo pack (One A Day Women's DHA) desogestrel 0.15 mg-ethinyl 1 tab PO QDAY 02/15/25 Unknown His tory estradiol 0.03 mg tablet (Apri) propylthiouracil 50 mg tablet See Rx Instructions PO TID #204 Unknown Rx tabs Allergy/AdvReac Type Severity Reaction Status Date / Time No Known Allergies Allergy Verified 08/12/25 16:05 Family History Mother Fibromyalgia Depression Hypertension Hyperlipidemia Grandmother Breast cancer Diabetes Heart disease Skin cancer Father Hypertension Grandfather CVA (cerebral vascular accident) Surgical History Hx of LASIK H/O elbow surgery H/O left knee surgery Social History adopted: No household members: spouse [...] in: other frequency: 3-4 times per week dina/tenriism: Mosque seatbelt use: always do you feel safe at home: Yes 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 Physical Exam Const Vital Signs: 08/12/25 16:05 08/12/25 17:05 08/12/25 17:10 Temperature 97.6 F L Temperature Source Temporal Pulse Rate 60 57 L Respiratory Rate 20 H 14 Respiratory Effort Normal Non-Labored Blood Pressure 145/79 H 124/83 H Blood Pressure Mean 101 96 Pulse Ox 100 100 Oxygen Delivery Method Room Air Room Air 08/12/25 17:10 08/12/25 18:00 08/12/25 19:00 Temperature Temperature Source Pulse Rate 55 L 56 L Respiratory Rate 18 16 Respiratory Effort Blood Pressure 114/77 119/78 Blood Pressure Mean 89 91 Pulse Ox 100 92 Oxygen Delivery Method Room Air Room Air Room Air MDM MDM MDM Narrative Medical decision making narrative: 39-year-old female with (more content not included)... Normal [facility] Eosinophil percentageOrdered By: Zachary Ceron on 08-12-2025 Eosinophils/100 WBC (Bld) 2.6 % 0-5 [facility] Erythrocyte distribution wid th ratioOrdered By: Zachary Jie on 08-12-2025 Erythrocyte distribution width (RBC) [Ratio] 12.0 % 11.6-14.6 [facility] Erythrocyte distribution wid th standard deviationOrdered By: Glen Daniel Warren Garrison on 08-12-2025 Erythrocyte distribution width (RBC) [Ratio] 42.1 fl 35.1-43.9 [facility] Glomerular filtration rate ( GFR) estimation/1.73 sq m using serum, plasma, or whole bOrdered By: Zachary Ceron on 08-12-2025 GFR/1.73 sq M.predicted among non-blacks MDRD (S/P/Bld) [Vol rate/Area] 70 mL/min/{1.73_m2} >60 [facility] Comment on above: mL/min/1.73m2 CKD-EP I Creatinine Equation (2020) Hematocrit Auto (Bld) [Volum e fraction]Ordered By: Zachary Ceron on 08-12-2025 Hematocrit (Bld) [Volume fraction] 36.3 % Low 37-47 [facility] Hemoglobin measurementOrdere d By: Zachary Ceron on 08-12-2025 Hemoglobin (Bld) [Mass/Vol] 12.5 g/dL 12.0-15.0 [facility] Immature granulocytes/100 WB C Auto (Bld)Ordered By: Zachary Ceron on 08-12-2025 Immature granulocytes/100 WBC (Bld) 0.200 % 0.0-0.9 [facility] Comment on above: IG% - Immature Granu locytes (promyelocytes, myelocytes and metamyelocytes) > 1% indicates that a LEFT SHIFT is Present. International normalized rat io (INR) calculationOrdered By: Zachary Ceron on 08-12-2025 INR Coag (Bld) [Relative time] 1.0 {INR} [facility] L501.4021on 08-12-2025 Trop T High Sen < 6 Normal <=14 [facility] Comment on above: Performed By: #### L 506.0400, L501.16553 #### [facility] [place], [address] MCV (mean corpuscular volume ) determinationOrdered By: Zachary Ceron on 08-12-2025 MCV (RBC) [Entitic vol] 95.3 fL 81-[address] [facility] Mean corpuscular hemoglobin (MCH) determinationOrdered By: Zachary Ceron on 08-12-2025 MCH (RBC) [Entitic mass] 32.8 pg High 27.0-32.0 [facility] Mean corpuscular hemoglobin concentration (MCHC) determinationOrdered By: Zachary Ceron on 08-12-2025 MCHC (RBC) [Mass/Vol] 34.4 g/dL 32-36 [place] Mean platelet volume determi nationOrdered By: Zachary Ceron on 08-12-2025 Platelet mean volume (Bld) [Entitic vol] 9.5 fL 6.2-12.0 [facility] Monocyte percentageOrdered B y: Zachary Ceron on 08-12-2025 Monocytes/100 WBC (Bld) 4.6 % 0-[address] [facility] Natriuretic peptide.B prohor dipika N-Terminal [Mass/volume] in Serum or PlasmaOrdered By: Zachary Ceron on 08-12-2025 Natriuretic peptide.B prohormone N-Terminal [Mass/Vol] < 36 pg/mL <450 [facility] Comment on above: Heart Failure Unlike ly: < 300 pg/mLHeart Failure Likely< 50 Years: > 450 pg/mL50-75 Years: > 900 pg/mL>75 Years: > 1800 pg/mL Neutrophil percentageOrdered By: Zachary Ceron on 08-12-2025 Neutrophils/100 WBC (Bld) 50.2 % 47-70 [facility] Nucleated red blood cell per centageOrdered By: Zachary Ceron on 08-12-2025 Nucleated RBC/100 WBC (Bld) [Ratio] 0 % 0-5 [facility] Partial Thromboplast Timeon 08-12-2025 aPTT Coag (Bld) [Time] 26.7 s Normal 24.1-36.2 [facility] Comment on above: Performed By: #### L 506.0400, L501.77527, L501.9520 #### [facility] [address] [place], [place], [address] Platelet countOrdered By: Yonatan Ceron on 08-12-2025 Platelets (Bld) [#/Vol] 247 10*3/uL 150-450 [facility] Potassium measurement (mass/ volume)Ordered By: Zachary Ceron on 08-12-2025 Potassium (Unsp spec) [Mass/Vol] 4.3 mmol/L 3.3-5.1 [facility] ,Serum,hCG Quali.on 08-12-2025 HCG, SERUM QUAL Negative Normal [facility] Comment on above: Performed By: #### L 506.0400, L501.38107 #### [facility] [address] [place], [place], [id number] Pro- Brain NATRIURETIC PEPTI Gloria 08-12-2025 proBNP < 36 Normal <=450 [facility] Comment on above: Result Comment: Hear t Failure Unlikely: < 300 pg/mL Heart Failure Likely < 50 Years: > 450 pg/mL 50-75 Years: > 900 pg/mL >75 Years: > 1800 pg/mL Performed By: #### L 506.0400, L501.21817 #### [facility] [address] [place], [place], [address] Prothrombin Time w/INRon INR Coag (PPP) [Relative time] 1.0 {INR} Normal [facility] Comment on above: Performed By: #### L 506.0400, L501.37220, L501.9520 #### [facility] [address] [place], [address] PT Coag (PPP) [Time] 13.7 s Normal 11.7-14.9 [facility] Comment on above: Performed By: #### L 506.0400, L501.98073, L501.9520 #### [facility] [address] [place], [address] Prothrombin timeOrdered By: Zachary Ceron on 08-12-2025 PT Coag (PPP) [Time] 13.7 s 11.7-14.9 [facility] RBC Auto (Bld) [#/Vol]Ordere d By: Zachary Ceron on 08-12-2025 RBC (Bld) [#/Vol] 3.81 10*6/uL Low 4.2-5.4 [facility] Serum beta-hCG test, qualita tiveOrdered By: Zachary Ceron on 08-12-2025 Beta HCG ( test) Ql Negative [facility] Serum creatinine measurement (mass/volume)Ordered By: Zachary Ceron on 08-12-2025 Creatinine [Mass/Vol] 1.05 mg/dL 0.70-1.20 [place] Serum glucose measurement (m ass/volume)Ordered By: Zachary Ceron on 08-12-2025 Glucose [Mass/Vol] 107 mg/dL High 70-99 [facility] Serum or plasma calcium karly urement (mass/volume)Ordered By: Zachary Garrison on 08-12-2025 Calcium [Mass/Vol] 8.9 mg/dL 7.6-11.0 [facility] Serum or plasma urea nitroge n measurement (mass/volume)Ordered By: Zachary Ceron on 08-12-2025 Urea nitrogen [Mass/Vol] 17 mg/dL 4-19 [facility] Sodium levelOrdered By: Ricardo Ceron on 08-12-2025 Sodium [Moles/Vol] 139 mmol/L 133-145 [facility] Troponin T HS 2 HRon 025 Trop T High Sen < 6 Normal <=14 [facility] Comment on above: Performed By: #### L 506.0400, L501.60560 #### [facility] [address] [place], [place], [id number] Troponin T HS 4 HRon 025 Trop T High Sen Normal <=14 [facility] Comment on above: Result Comment: Canc elled via OM: MD Ordered Performed By: #### L 506.0400, L501.31359, L501.9520 #### [facility] [address] [place], [place], [id number] Troponin T.cardiac [Mass/vol ume] in Serum or Plasma by High sensitivity methodOrdered By: Zachary Ceron on 08-12-2025 Troponin T.cardiac High sensitivity method [Mass/Vol] < 6 ng/L <14 [facility] Troponin T.cardiac High sensitivity method [Mass/Vol] < 6 ng/L <14 [facility] White blood cell (WBC) count Ordered By: Zachary Ceron on 08-12-2025 WBC (Bld) [#/Vol] 5.9 10*3/uL 4.4-11.0 [facility] Free T3on 08-03-2025 Free T3 [Mass/Vol] 2.9 pg/mL Normal 2.18-3.98 [facility] Comment on above: Performed By: #### L 506.0400, L501.44206 #### [facility] [address] [place], [place], [id number] Free [id number] By: Kirby Burrows on 08-03-2025 Free T3 [Mass/Vol] 2.9 pg/mL 2.18-3.98 [facility] T4 Free Directon 08-03-2025 T4 FREE DIRECT 0.70 ng/dL Low 0.76-1.46 [facility] Comment on above: Performed By: #### L 506.0400, L501.96232 #### [facility] [address] [place], [address] T4 freeOrdered By: Kirby Burrows on 08-03-2025 Free T4 [Mass/Vol] 0.70 ng/dL Low 0.76-1.46 [facility] TSH DL <= 0.005 mIU/L QnOrde red By: Kirby Burrows on 08-03-2025 TSH Qn 2.600 uIU/mL 0.300-4.200 [facility] Thyroid Stim Hormone (TSH)on 08-03-2025 TSH 2.600 uIU/mL Normal 0.300-4.200 [facility] Comment on above: Performed By: #### L 506.0400, L501.66721 #### [facility] [address] [place], [address] Free T3on 07-06-2025 Free T3 [Mass/Vol] 3.1 pg/mL Normal 2.18-3.98 [facility] Comment on above: Performed By: #### L 506.0400, L501.21140, L501.9520 #### [facility] [address] [place], [address] Free [id number] By: Kirby Burrows on 07-06-2025 Free T3 [Mass/Vol] 3.1 pg/mL 2.18-3.98 [facility] T4 Free Directon 07-06-2025 T4 FREE DIRECT 0.80 ng/dL Normal 0.76-1.46 [facility] Comment on above: Performed By: #### L 506.0400, L501.73851, L501.9520 #### [facility] [address] [place], [address] T4 freeOrdered By: Kirby Burrows on 07-06-2025 Free T4 [Mass/Vol] 0.80 ng/dL 0.76-1.46 [facility] TSH DL <= 0.005 mIU/L QnOrde red By: Kirby Burrows on 07-06-2025 TSH Qn 0.602 uIU/mL 0.300-4.200 [facility] Thyroid Stim Hormone (TSH)on 07-06-2025 TSH 0.602 uIU/mL Normal 0.300-4.200 [facility] Comment on above: Performed By: #### L 506.0400, L501.55920, L501.9520 #### [facility] [address] [place], [place], [phone] Free T3on 06-18-2025 Free T3 [Mass/Vol] 2.6 pg/mL Normal 2.18-3.98 [facility] Comment on above: Performed By: #### L 506.0400, L501.16623, L501.9520 #### [facility] [address] [place], [place], [phone] Free [id number] By: Kirby Burrows on 06-18-2025 Free T3 [Mass/Vol] 2.6 pg/mL 2.18-3.98 [facility] T4 Free Directon 06-18-2025 T4 FREE DIRECT 0.70 ng/dL Low 0.76-1.46 [facility] Comment on above: Performed By: #### L 506.0400, L501.74738, L501.9520 #### [facility] [address] [facility] [place], [place], [phone] T4 freeOrdered By: Kirby Burrows on 06-18-2025 Free T4 [Mass/Vol] 0.70 ng/dL Low 0.76-1.46 [facility] Free [id number] By: Kirby Burrows on 05-25-2025 Free T3 [Mass/Vol] 4.1 pg/mL High 2.18-3.98 [facility] Comment on above: Performed By: #### L 501.9520, L506.0400, L501.71948 #### [facility] [address] [place], [address] T4 Free Directon 05-25-2025 T4 FREE DIRECT 1.20 ng/dL Normal 0.76-1.46 [facility] Comment on above: Performed By: #### L 501.9520, L506.0400, L501.19682 #### [facility] Laboratory [address] [place], [address] T4 freeOrdered By: Kirby Burrows on 05-25-2025 Free T4 [Mass/Vol] 1.20 ng/dL 0.76-1.46 [facility] Free T3on 05-10-2025 Free T3 [Mass/Vol] 4.1 pg/mL High 2.18-3.98 [facility] Comment on above: Performed By: #### L 506.0400, L501.12781, L501.9520 #### [facility] Laboratory [address] [place], [address] Free [id number] By: Kirby Burrows on 05-10-2025 Free T3 [Mass/Vol] 4.1 pg/mL High 2.18-3.98 [facility] T4 Free Directon 05-10-2025 T4 FREE DIRECT 1.50 ng/dL High 0.76-1.46 [facility] Comment on above: Performed By: #### L 506.0400, L501.46327, L501.9520 #### [facility] Laboratory [address] [place], [address] T4 freeOrdered By: Kirby Burrows on 05-10-2025 Free T4 [Mass/Vol] 1.50 ng/dL High 0.76-1.46 [facility] Free F3Jjtlnam By: Kirby Burrows on 04-27-2025 Free T3 [Mass/Vol] 4.9 pg/mL High 2.18-3.98 [facility] Comment on above: Performed By: #### L 506.0400, L501.51515 #### [facility] Laboratory [address] [place], [place], [address] T4 Free Directon 04-27-2025 T4 FREE DIRECT 1.70 ng/dL High 0.76-1.46 [facility] Comment on above: Performed By: #### L 506.0400, L501.33051 #### [facility] Laboratory [address] [place], [address] T4 freeOrdered By: Kirby Burrows on 04-27-2025 Free T4 [Mass/Vol] 1.70 ng/dL High 0.76-1.46 [facility] Free T3on 04-13-2025 Free T3 [Mass/Vol] 6.1 pg/mL High 2.18-3.98 [facility] Comment on above: Performed By: #### L 506.0400, L501.83380, L501.9520 #### [facility] Laboratory [address] [place], [address] Free K0Oohjram By: Kirby Burrows on 04-13-2025 Free T3 [Mass/Vol] 6.1 pg/mL High 2.18-3.98 [facility] T4 Free Directon 04-13-2025 T4 FREE DIRECT 1.70 ng/dL High 0.76-1.46 [facility] Comment on above: Performed By: #### L 506.0400, L501.93364, L501.9520 #### [facility] Laboratory [address] [place], [address] T4 freeOrdered By: Kirby Burrows on 04-13-2025 Free T4 [Mass/Vol] 1.70 ng/dL High 0.76-1.46 [facility] TSH DL <= 0.005 mIU/L QnOrde red By: Kirby Burrows on 04-13-2025 TSH Qn < 0.005 uIU/mL Low 0.300-4.200 [facility] Thyroid Stim Hormone (TSH)on 04-13-2025 TSH Qn m[IU]/L Low 0.300-4.200 [facility] Comment on above: Performed By: #### L 506.0400, L501.95549, L501.9520 #### [facility] Laboratory [address] [place], [address] Free T3on 03-28-2025 Free T3 [Mass/Vol] 7.8 pg/mL High 2.18-3.98 [facility] Comment on above: Performed By: #### L 506.0400, L501.47071, L501.9520 #### [facility] Laboratory [address] [place], [address] Free R9Itkufqj By: Elpidio on 03-28-2025 Free T3 [Mass/Vol] 7.8 pg/mL High 2.18-3.98 [facility] T4 Free Directon 03-28-2025 T4 FREE DIRECT 1.80 ng/dL High 0.76-1.46 [facility] Comment on above: Performed By: #### L 506.0400, L501.57798, L501.9520 #### [facility] Laboratory [address] [place], [place], [address] T4 freeOrdered By: Elpidio on 03-28-2025 Free T4 [Mass/Vol] 1.80 ng/dL High 0.76-1.46 [facility] TSH DL <= 0.005 mIU/L QnOrde red By: Zuleyma Shaffer on 03-28-2025 TSH Qn < 0.005 uIU/mL Low 0.300-4.200 [facility] Thyroid Stim Hormone (TSH)on 03-28-2025 TSH Qn m[IU]/L Low 0.300-4.200 [facility] Comment on above: Performed By: #### L 506.0400, L501.62117, L501.9520 #### [facility] Laboratory [address] [place], [place], [address] Biologics Injection: R shoul daryl 03-23-2025 Dee Glasgow DO 03/23/2025 2:15 PM [...] these instructions. Informed Consent Consent Obtained: Written Rosenberg Protocol A moment to CARE was completed. [...] the bedside nurse for hospitalized patients) applicable. [facility] CNOVon 03-23-2025 CNOV Office Visit (ORAVON ) RITIKA VEGA ([id number]) 1985 F Date Time Provider Department 03/23/25 [...] these instructions. Informed Consent Consent Obtained: Written Rosenberg Protocol A moment to CARE was completed. [...] Glasgow DO 03/23/2025 Referring Provider: DEE GLASGOW [[id number]] Allergies As of Date: 03/23/2025 (No Known Allergies) Date Reviewed: 03/23/2025 Reviewed by: Dee Glasgow DO - Fully Assessed Primary Visit Diagnosis:Glenoid labral tear, right, initial encounter [S43.431A] Other Visit Diagnosis:Tendinopathy of right rotator cuff [M67.911] Order(s):US SHOULDER-INJECTION RT (POC) CAHNDRAKANT USE ONLY [4010568] Order #: [id number]. #:[id number]: 1 HYDROcodone-acetaminop hen (NORCO) 5-325 mg per tabletTake 1 tablet by mouth every 8 hours as needed for pain for up to 5 days.Disp: 15 tabletRfl: 0 CONSULT TO PHYSICAL THERAPY [9032] Order #: [id number]: 1 FUTURE [employer]olog[employer] Injection: R shoulder [TGA898] Order #: [id number] Prescriptions as of 03/23/2025 - HYDROcodone-acetaminop hen [...] Status:Closed by DEE GLASGOW on 03/23/25 Normal [facility] SHOULDER-INJECTION RT (PO C) CHANDRAKANT USE ONLYon 03-23-2025 [facility] Free T3on 03-15-2025 Free T3 [Mass/Vol] 7.3 pg/mL High 2.18-3.98 [facility] Comment on above: Performed By: #### L 506.0400, L501.21505, L501.9520 #### [facility] Laboratory [address] [place], [place], [address] Free G6Lcjouna By: Kirby Burrows on 03-15-2025 Free T3 [Mass/Vol] 7.3 pg/mL High 2.18-3.98 [facility] T4 Free Directon 03-15-2025 T4 FREE DIRECT 1.90 ng/dL High 0.76-1.46 [facility] Comment on above: Performed By: #### L 506.0400, L501.44563, L501.9520 #### [facility] Laboratory [address] [place], [place], [address] T4 freeOrdered By: Kirby Burrows on 03-15-2025 Free T4 [Mass/Vol] 1.90 ng/dL High 0.76-1.46 [facility] TSH DL <= 0.005 mIU/L QnOrde red By: Kirby Burrows on 03-15-2025 TSH Qn < 0.005 uIU/mL Low 0.300-4.200 [facility] Thyroid Stim Hormone (TSH)on 03-15-2025 TSH Qn m[IU]/L Low 0.300-4.200 [facility] Comment on above: Performed By: #### L 506.0400, L501.18268, L501.9520 #### [facility] Laboratory [address] [place], [place], [address] Endocrinology Visit Reporton 02-15-2025 Endocrinology Visit Report [facility] 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 Normal [facility] Free T3on 01-08-2025 Free T3 [Mass/Vol] 3.4 pg/mL Normal 2.18-3.98 [facility] Comment on above: Performed By: #### L 506.0400, L501.68207, L501.9520 #### [facility] Laboratory [address] [place], [place], [address] Free V8Nqvglho By: Kirby Burrows on 01-08-2025 Free T3 [Mass/Vol] 3.4 pg/mL 2.18-3.98 [facility] Free Triiodothyronine (T3) pg/dL 3.4 pg/mL 2.18-3.98 [facility] T4 Free Directon 01-08-2025 T4 FREE DIRECT 1.30 ng/dL Normal 0.76-1.46 [facility] Comment on above: Performed By: #### L 506.0400, L501.69859, L501.9520 #### [facility] Laboratory [address] [place], [place], [address] T4 freeOrdered By: Kirby Burrows on 01-08-2025 Free T4 [Mass/Vol] 1.30 ng/dL 0.76-1.46 [facility] TSH DL <= 0.005 mIU/L QnOrde red By: Kirby Burrows on 01-08-2025 Thyroid Stimulating Hormone (TSH) 0.102 uIU/mL Low 0.300-4.200 [facility] TSH Qn 0.102 uIU/mL Low 0.300-4.200 [facility] Thyroid Stim Hormone (TSH)on 01-08-2025 TSH 0.102 uIU/mL Low 0.300-4.200 [facility] Comment on above: Performed By: #### L 506.0400, L501.33576, L501.9520 #### [facility] Laboratory [address] [place], [place], [address] MULLERon 01-06-2025 [facility] 1.29 ng/mL Normal [facility] Comment on above: Result Comment: For assays employing antibodies, the possibility exists for interference by heterophile antibodies in the samples.1 1.Westley Alaniz Interferences in Immunoassays - still a threat. Clin. Chem. 2000; 46: 3186-7546. This test was developed and its performance characteristics determined by [employer]. It has not been cleared or approved by the Food and Drug Administration. Reference Range: Females 36 - 40y: 0.42 - 8.34 Median 1.69 AMH concentrations of >= 1.06 ng/mL is correlated with a better response to ovarian stimulation, produced more retrievable oocytes and higher odds of live according to Joeyer et al. Fertility and Sterility. 2010: 94:6556-7394. The current AMH test method correlates with [...] exclude an AMH-secreting ovarian tumor. Performed At: [email or web address] [address] [place] [id number] Chris Newton MD Ph:[phone] Performed By: #### 5 [address] #### [address] [address] Financial Adviser Office Visit Reporton 01-01-2025 Financial Adviser Office Visit Report [facility] [address] [place] [address], [address] [place] [address] OFFICE VISIT Date of Service: 01/01/25 MR#: [id number] Acct: [id number] Name: RITIKA VEGA Rep #: [id number] : 1985 Provider: ELIECER Cortez Age/Sex: 39/F Location[place] [facility] Status: Signed Intake Vital Signs 04/19/24 07:00 08/17/24 08:34 01/01/25 09:02 01/01/25 09:05 Height 5 ft 11 in 5 ft 11 in 5 ft 11 in 5 ft 11 in Weight: 160 lb BMI 22.3 BP 120/75 Intake Visit 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 Normal [facility] Direct serum free thyroxine (FT4) measurementOrdered By: Kirby Burrows on 12-08-2024 Free T4 [Mass/Vol] 1.11 ng/dL 0.76-1.46 [facility] Free T3on 12-08-2024 Free T3 [Mass/Vol] 3.4 pg/mL Normal 2.18-3.98 [facility] Comment on above: Performed By: #### L 501.9520, L506.0400, L501.31725 #### [facility] Laboratory [address] [place], [place], [address] Free H4Gumsvpb By: Kirby Burrows on 12-08-2024 Free T3 [Mass/Vol] 3.4 pg/mL 2.18-3.98 [facility] Free Triiodothyronine (T3) pg/dL 3.4 pg/mL 2.18-3.98 [facility] Serum or plasma thyroid stim ulating hormone (TSH) measurement (units/volume)Ordered By: Kirby Burrows on 12-08-2024 TSH Qn 0.108 uIU/mL Low 0.358-3.740 [facility] T4 Free Directon 12-08-2024 T4 FREE DIRECT 1.11 ng/dL Normal 0.76-1.46 [facility] Comment on above: Performed By: #### L 501.9520, L506.0400, L501.00952 #### [facility] [address] [place], [place], [address] TSH QnOrdered By: Kirby Burrows on 12-08-2024 Thyroid Stimulating Hormone (TSH) 0.108 uIU/mL Low 0.358-3.740 [facility] Thyroid Stim Hormone (TSH)on 12-08-2024 TSH 0.108 uIU/mL Low 0.358-3.740 [facility] Comment on above: Performed By: #### L 501.9520, L506.0400, L501.47976 #### [facility] Laboratory [address] [place], [place], [address] Office Visiton 11-14-2024 Follow-up visit [id number] Ritika Vega 1985 F Date Provider Department Center 11/14/2024 [id number], [facility] ENT CONSULTANT None Family History Problem Relation Age of Onset Depression Mother Hypertension Mother Arthritis Father Hypertension Father Heart disease Maternal Grandfather Anesthesia problems Maternal Grandmother Diabetes Maternal Grandmother Heart disease Maternal Grandmother Heart disease Paternal Grandfather Stroke Paternal Grandfather Cancer Paternal Grandmother Family Status - Relation Status Age at Mother Father Maternal Grandfather Maternal Grandmother Paternal Grandfather Paternal Grandmother Level of Service:81849 [place] POSTOP FOLLOW UP VISIT RELATED TO ORIGINAL PX Reason for Visit and Comments: Post-op Visit [269] - No incision issues, no concerns with bowel or bladder function. Normal [facility] Progress Noteon 11-14-2024 Progress Note GYNECOLOGIC [...] PO Take 240 mg by mouth daily. [place]-3 Fatty Acids (Fish Oil) 1000 MG capsule [...] Follow-up with Dr. Bustillos and with primary digital account manager for routine care. I explained diagnosis and treatment plan; patient expressed understanding and was in agreement with the plan. Jazmyne Argueta, BRANCH OFFICE MANAGER - THEORETICAL PHYSICS TEACHER Normal [facility] 36on 11-09-2024 36 Called pt with ronen [facility], pt verbalized understanding and had no further questions. Normal [facility] HCG ( test) Ql (U)o n 11-06-2024 Beta HCG ( test) Ql (U) [id number] [facility] Interpretation and review of laboratory results Normal [facility] NEGATIVE QC Pass [facility] POSITIVE QC Pass [facility] Preg Test, Ur Negative Negative [facility] Nursing Noteon 11-06-2024 Nursing Note Family/visitor at bedside with patient. Normal [facility] Op Noteon 11-06-2024 Op Note Date: 11/06/2024 Location: [facility] OR Name: Ritika Vega, : 1985, Diagnosis Pre-op Diagnosis * Intra-abdominal and pelvic swelling, mass and lump, unspecified site [R19.00] Post-op Diagnosis * Intra-abdominal and pelvic swelling, mass and lump, unspecified site [R19.00] Procedures LAPAROSCOPIC OVARIAN CYSTECTOMY 26984 - [place] OVARIAN CYSTECTOMY UNI/BI Surgeons * Pedro Edwards - Primary Procedure Summary Anesthesia: General ASA: II Estimated Blood Loss: 20 mL Drains: * None in log * Specimens ID Source Type Tests Collected By Collected At [facility]? Priority Lab ID 1 Peritoneal Washings Wash NON-GYNECOLOGIC CYTOLOGY Pedro Edwards MD 11/06/24 1340 Description: PELVIC WASHINGS 2 Ovary, Right Tissue TISSUE EXAM Pedro Edwards MD 11/06/24 1409 Description: RIGHT OVARIAN CYST Staff: Manager Technology: Angelina Clifton RN; Evelia Beasley RN Scrub [...] indicated for this procedure. [facility] Op Note Date: 11/06/2024 Location: [facility] OR Name: Ritika Vega, : 1985, Diagnosis Pre-op Diagnosis * Intra-abdominal and pelvic swelling, mass and lump, unspecified site [R19.00] Post-op Diagnosis * Intra-abdominal and pelvic swelling, mass and lump, unspecified site [R19.00] Procedures LAPAROSCOPIC RIGHT OVARIAN CYSTECTOMY 84107 - [place] OVARIAN CYSTECTOMY UNI/BI Surgeons * Pedro Edwards [...] 11/06/24 1409 Description: RIGHT OVARIAN CYST Staff: Manager Technology: Angelina Clifton RN; Evelia Beasley RN Scrub [...] was grasped with a single-tooth tenaculum. A Digital Ally uterine manipulator was placed without difficulty and [...] direct visualization. (more content not included)... Normal [facility] Progress Noteon 11-06-2024 Progress Note Patient feeling bett er after IM Ephedrine injection. Ambulated and ready to be discharged Normal [facility] Progress Note Per previous nursing note, [...] bed, then upon standing, patient vomited. Normal [facility] Progress Note Patient states she i s feeling better. We will attempt to ambulate to restroom Normal [facility] Progress Note Discharge informatio n given to the patient. Patient and family verbalized understanding of information. All questions were answered at this time. Patient denies dizziness. Vital signs are stable. Normal [facility] [id number] 11-03-2024 [id number] Medication List Accurate as of November 03, [...] hours prior to surgery. Please bring your [facility] Surgical folder with you day [...] time and date. You may use the doll wig hackler parking located at the main entrance on [...] surgery. Check in at the desk. Normal [facility] 36on 10-31-2024 36 Called out to the patient to advised patient of scheduled PAT phone call, scheduled Saturday 11/03 at 0830. Patient agreed for call. Normal [facility] 36 S/w Amber verification of outpatient Cpt 08671, Plan coverage 11/08/2023 to current. CPT 94993 does not require prior authorization as long as Outpatient. Call reference# [id number]. Normal [facility] MR Shoulder - right WO contr shiloh 10-30-2024 IMPRESSION: Mild supraspinatus tendinosis with a low-grade partial-thickness tear. No high-grade or full-thickness rotator cuff tendon tear is identified. Possible superior glenoid labral tear. Manufacturing Operations Manager: [facility] Transcribe Date/Time: Oct 30 2024 8:41A Dictated by : BHARATH FREGOSO MD This examination was interpreted and the report reviewed and electronically signed by: BHARATH FREGOSO MD on Oct 30 2024 8:47AM [facility] DIVISION OF RADIOLOGY * * *Final Report* * * DATE OF EXAM: Oct 30 2024 7:50AM [facility] 0240 - MRI SHOULDER WO [...] No additional findings. DIVISION OF RADIOLOGY Provider, [facility] - 10/30/2024 * * *Final Report* * * DATE OF EXAM: Oct 30 2024 7:50AM [facility] 0240 - MRI SHOULDER WO [...] is identified. Possible superior glenoid labral tear. Manufacturing Operations Manager: YANG Transcribe Date/Time: Oct 30 2024 8:41A Dictated by : BHARATH FREGOSO MD This examination was interpreted and the report reviewed and electronically signed by: BHARATH FREGOSO MD on Oct 30 2024 8:47AM EST [facility] Radiology Study [facility] (narrative[facility] MR Shoulder - right WO contr astOrdered By: Ccf Provider on 10-30-2024 [facility] MRI SHOULDER WO IVCON RTon [...] is identified. Possible superior glenoid labral tear. Manufacturing Operations Manager: YANG Transcribe Date/Time: Oct 30 2024 8:41A Dictated by : BHARATH FREGOSO MD This examination was interpreted and the report reviewed and electronically signed by: BHARATH FREGOSO MD on Oct 30 2024 8:47AM EST [id number] Normal [facility] Office Visiton 10-30-2024 Follow-up visit [id number] Ritika Vega 1985 F Date Provider Department Center 10/30/2024 [id number] EDWARDS*[facility] E[facility] CONSULTANT None Family History Problem Relation Age of Onset Depression Mother Hypertension Mother Arthritis Father Hypertension Father Heart disease Maternal Grandfather Anesthesia problems Maternal Grandmother Diabetes Maternal Grandmother Heart disease Maternal Grandmother Heart disease Paternal Grandfather Stroke Paternal Grandfather Cancer Paternal Grandmother Family Status - Relation Status Age at Mother Father Maternal Grandfather Maternal Grandmother Paternal Grandfather Paternal Grandmother Level of Service:17541 [place] OFFICE/OUTPATIENT NEW MODERATE MDM 45 MINUTES Reason for Visit and Comments: Other [0] - Pelvic mass Normal [facility] Progress Noteon 10-30-2024 Progress Note Chief [...] Vega Arthritis Father Anjel Vega Hypertension Father Anejl Vega Heart disease Maternal Grandfather Apolinar Lee Anesthesia problems Maternal Grandmother Cece Meiser Diabetes Maternal Grandmother Cece Meiser Heart disease Maternal Grandmother Cece Meiser Heart disease Paternal Grandfather Zac Vega Stroke Paternal Grandfather Zac Gutierrezphrey Cancer Paternal Grandmother Debo Vega Social History Socioeconomic History Marital status: [...] content not included)... [facility] 36on 10-26-2024 36 Called patient to schedule shrimp peeling machine tender appointment. First available is 11/09/24. Patient wanted to know if you had anything sooner. I know you have pto and scheduled for surgery. I told patient I would see if we could do something sooner, but I told her I couldn't promise her anything. Is it okay to put her with Dr. Jimenez? [facility] CNOVon 10-18-2024 CNOV Office Visit (LOORRM ) VEGARITIKA SHEPPARD ([id number]) 1985 F Date Time Provider Department 10/18/24 10:30 AM DEE GLASGOW LOORR During your visit today, we recorded the [...] results and radiologist's interpretation, available in the [facility] health record. Images were reviewed [...] - Fully Assessed Reason for Visit: New [353734] Pain (Shoulder Pain) [1343] Primary Visit Diagnosis:Glenoid labral tear, right, initial encounter [S43.431A] Other Visit Diagnosis:Tendinopathy of right rotator cuff [M67.911] Order(s):MRI SHOULDER WO IVCON RIGHT [8064927] Order #: [id number] FUTURE Prescriptions as of 10/18/2024 - cetirizine [...] Status:Closed by DEE GLASGOW on 10/18/24 Normal [facility] Direct serum free thyroxine (FT4) measurementOrdered By: Kirby Burrows on 10-18-2024 Free T4 [Mass/Vol] 0.87 ng/dL 0.76-1.46 [facility] Free T3on 10-18-2024 Free T3 [Mass/Vol] 2.6 pg/mL Normal 2.18-3.98 [facility] Comment on above: Performed By: #### L 506.0400, L501.64379, L501.9520 #### [facility] Laboratory [address] [place], [address] Free B8Jlmuunf By: Kirby Burrows on 10-18-2024 Free Triiodothyronine (T3) pg/dL 2.6 pg/mL 2.18-3.98 [facility] T4 Free Directon 10-18-2024 T4 FREE DIRECT 0.87 ng/dL Normal 0.76-1.46 [facility] Comment on above: Performed By: #### L 506.0400, L501.98753, L501.9520 #### [facility] Laboratory [address] [place], [address] TSH QnOrdered By: Kirby uBrrows on 10-18-2024 Thyroid Stimulating Hormone (TSH) 0.640 uIU/mL 0.358-3.740 [facility] Thyroid Stim Hormone (TSH)on 10-18-2024 TSH 0.640 uIU/mL Normal 0.358-3.740 [facility] Comment on above: Performed By: #### L 506.0400, L501.49576, L501.9520 #### [facility] Laboratory [address] [place], [address] XR SHLDR >/=3V AP/GWEN AP/OTH R RTon [...] are preserved. IMPRESSION: No acute bony abnormality. Manufacturing Operations Manager: [employer] Transcribe Date/Time: Oct 18 2024 10:04A Dictated by : BHARATH FREGOSO MD This examination was interpreted and the report reviewed and electronically signed by: BHARATH FREGOSO MD on Oct 18 2024 10:05AM EST [id number] Normal [facility] MR PELVIS W //T// W/O CONTRA STon 10-13-2024 MR PELVIS W //T// W/O [address] [address] Patient: RITIKA VEGA Phone#: : 1985 Age: 38 Gender: F Pt. Type: Out Account: [id number] Location: Ordering: INNA BUSTILLOS Exam Date: 10/13/2024/10:03 Family Phys: Charge Code: 840316 Physician: [place] Order #: [id number] Dose#: PROCEDURE: MRI PELVIS WITH AND WITHOUT [...] Live MD on 10/20/2024 at 13:59 Normal [facility] XR SHLDR >/=3V AP/GWEN AP/OTH R LTon [...] AP/GWEN AP/OTHR RT could not be completed. Manufacturing Operations Manager: [employer] Transcribe Date/Time: Oct 12 2024 9:49A Dictated by : TAYLER TURCIOS MD This examination was interpreted and the report reviewed and electronically signed by: TAYLER TURCIOS MD on Oct 12 2024 9:52AM EST [id number] Normal [facility] XR SHLDR >/=3V AP/GWEN AP/OTH [...] AP/GWEN AP/OTHR RT could not be completed. Manufacturing Operations Manager: [employer] Transcribe Date/Time: Oct 12 2024 9:49A Dictated by : TAYLER TURCIOS MD This examination was interpreted and the report reviewed and electronically signed by: TAYLER TURCIOS MD on Oct 12 2024 9:52AM EST [id number] Normal [facility] CTPCRon 10-02-2024 C. trachomatis Interp Normal See CT Interp [facility] Comment on above: Result Comment: C. t rachomatis DNA not detected. Specimen is presumptive negative for C. trachomatis. A negative result does not preclude C. trachomatis infection because results depend on adequate specimen collection, absence of inhibitors, and sufficient DNA to be detected. See CT Interp N Performed By: #### N GPCR1, CTPCR #### [place] [address] C.trachomatis PCR Negative Normal Negative [facility] Comment on above: Result Comment: Mole cular (PCR) assay performed on the Roly Leelee 4800 system. Performed By: #### N GPCR1, CTPCR #### [place] [address] Chlam Source Urine Normal [facility] Comment on above: Performed By: #### N GPCR1, CTPCR #### [place] [address] [id number] 10-02-2024 GC PCR Source Urine Normal [facility] Comment on above: Performed By: #### N GPCR1, CTPCR #### [place] [address] N. gonorrhoeae (PCR) Negative Normal Negative [facility] Comment on above: Result Comment: Mole cular (PCR) assay performed on the R[employer] Leelee 4800 System. Performed By: #### N GPCR1, CTPCR #### [place] [address] N. gonorrhoeae Interp Normal See NG Interp N [facility] Comment on above: Result Comment: N. g onorrhoeae DNA not detected. Specimen is presumptive negative for N. gonorrhoeae. A negative result does not preclude Neisseria gonorrhoeae infection because results depend on adequate specimen collection, absence of inhibitors, and sufficient DNA to be detected. See NG Interp N Performed By: #### N GPCR1, CTPCR #### [place] [address] RPRon 10-02-2024 Reagin Ab RPR Ql (S) Non-Reactive Normal Non-[place] ctiv [facility] MAIN Comment on above: Result Comment: The [...] Performed By: #### N GPCR1, CTPCR #### [place] [address] RUBISon 10-02-[address] Positive Normal [facility] MAIN Comment on above: Result Comment: This immune status assay detects IgM and/or IgG antibody to Rubella. Interpret results in conjunction with clinical history. POS: Antibody detected; exposure at undetermined recent or distant time. If clinically indicated, order Rubella IGM to rule out recent infection. NEG: No antibody detected. Performed By: #### N GPCR1, CTPCR #### [place] [address] VARISon 09-30-[address] Positive [facility] MAIN Comment on above: Result Comment: INTE RPRETATION OF VARICELLA IMMUNE STATUS IgG BY EIA: Negative: No detectable VZV IgG antibody. Positive: VZV IgG antibody Detected. If clinically indicated, order Varicella IgM to rule out recent infection. Equivocal: Equivocal for antibodies to VZV. Suggest repeat testing in 10-14 days. Performed By: #### N GPCR1, CTPCR #### [place] [address] .GFRon 09-29-2024 GFR Non- >60 [facility] MAIN Comment on above: Result Comment: GFR [...] GFR, HIV, A1C, VARIS, RUBIS, ABSGEL #### [address] [address] GFR >60 Normal [facility] Comment on above: Result Comment: GFR [...] GFR, HIV, A1C, VARIS, RUBIS, ABSGEL #### [address] [address] A1Con 09-29-2024 Glucose [Mass/Vol] 97 mg/dL Normal [facility] Comment on above: Result Comment: Concetta mated Average Glucose calculated by equation ((28.7xA1C)-46.7) Estimated average glucose (eAG) is a calculated value from Hemoglobin A1C and is tax compliance representative of the average blood glucose level in the last 2-3 month period. Normal range: less than 114 mg/dL Performed By: #### H BSAG, CMP, HCV1, RPR, HGMP, GFR, HIV, A1C, VARIS, RUBIS, ABSGEL #### [address] [address] HbA1c (Bld) [Mass fraction] 5.0 % Normal 4.0-6.0 [facility] Comment on above: Performed By: #### H BSAG, CMP, HCV1, RPR, HGMP, GFR, HIV, A1C, VARIS, RUBIS, ABSGEL #### [address] [address] ABS (Gel)on 09-29-2024 ABSC Interp (Gel) Negative Normal [facility] Comment on above: Performed By: #### H BSAG, CMP, HCV1, RPR, HGMP, GFR, HIV, A1C, VARIS, RUBIS, ABSGEL #### [place] [id number] CMPon 09-29-2024 Albumin Level 3.7 G/dL Normal 3.2-4.8 [facility] Comment on above: Performed By: #### H BSAG, CMP, HCV1, RPR, HGMP, GFR, HIV, A1C, VARIS, RUBIS, ABSGEL #### [place] [id number] Albumin/Globulin [Mass ratio] 1.3 {ratio} Normal 0.9-1.6 [facility] Comment on above: Performed By: #### H BSAG, CMP, HCV1, RPR, HGMP, GFR, HIV, A1C, VARIS, RUBIS, ABSGEL #### [address] [address] ALP [Catalytic activity/Vol] 50 U/L Normal 38-126 [facility] Comment on above: Performed By: #### H BSAG, CMP, HCV1, RPR, HGMP, GFR, HIV, A1C, VARIS, RUBIS, ABSGEL #### [address] [address] ALT [Catalytic activity/Vol] 29 U/L Normal 10-49 [facility] Comment on above: Performed By: #### H BSAG, CMP, HCV1, RPR, HGMP, GFR, HIV, A1C, VARIS, RUBIS, ABSGEL #### [address] [address] AST [Catalytic activity/Vol] 19 U/L Normal 8-34 [facility] Comment on above: Performed By: #### H BSAG, CMP, HCV1, RPR, HGMP, GFR, HIV, A1C, VARIS, RUBIS, ABSGEL #### [address] [address] Bili Total 0.70 mg/dL Normal 0.20-1.20 [facility] Comment on above: Result Comment: Use of this assay is not recommended for patients undergoing treatment with eltrombopag due to the potential for falsely elevated results. Performed By: #### H BSAG, CMP, HCV1, RPR, HGMP, GFR, HIV, A1C, VARIS, RUBIS, ABSGEL #### [address] [address] BUN/Creatinine Ratio 19.2 ratio Normal 10.0-22.0 [facility] Comment on above: Performed By: #### H BSAG, CMP, HCV1, RPR, HGMP, GFR, HIV, A1C, VARIS, RUBIS, ABSGEL #### [address] [address] Calcium [Mass/Vol] 9.4 mg/dL Normal 8.7-10.4 [facility] Comment on above: Performed By: #### H BSAG, CMP, HCV1, RPR, HGMP, GFR, HIV, A1C, VARIS, RUBIS, ABSGEL #### [address] [address] Chloride [Moles/Vol] 107 mmol/L Normal 98-110 [facility] Comment on above: Performed By: #### H BSAG, CMP, HCV1, RPR, HGMP, GFR, HIV, A1C, VARIS, RUBIS, ABSGEL #### [address] [address] CO2 [Moles/Vol] 29 mmol/L Normal 22-32 [facility] Comment on above: Performed By: #### H BSAG, CMP, HCV1, RPR, HGMP, GFR, HIV, A1C, VARIS, RUBIS, ABSGEL #### [address] [address] Creatinine [Mass/Vol] 0.99 mg/dL Normal 0.50-1.20 [facility] Comment on above: Result Comment: Test ing performed on [employer] CH analyzer using enzymatic creatinine methodology. Performed By: #### H BSAG, CMP, HCV1, RPR, HGMP, GFR, HIV, A1C, VARIS, RUBIS, ABSGEL #### [address] [address] Electrolyte Balance 6.0 mEq/L Normal 4.0-15.0 [facility] Comment on above: Performed By: #### H BSAG, CMP, HCV1, RPR, HGMP, GFR, HIV, A1C, VARIS, RUBIS, ABSGEL #### [address] [address] Globulin 2.9 G/dL Normal 1.5-3.8 [facility] Comment on above: Performed By: #### H BSAG, CMP, HCV1, RPR, HGMP, GFR, HIV, A1C, VARIS, RUBIS, ABSGEL #### [address] [address] Glucose [Mass/Vol] 81 mg/dL Normal 70-110 [facility] Comment on above: Performed By: #### H BSAG, CMP, HCV1, RPR, HGMP, GFR, HIV, A1C, VARIS, RUBIS, ABSGEL #### [address] [address] Potassium [Moles/Vol] 4.4 mmol/L Normal 3.5-5.0 [facility] Comment on above: Performed By: #### H BSAG, CMP, HCV1, RPR, HGMP, GFR, HIV, A1C, VARIS, RUBIS, ABSGEL #### [address] [address] Sodium [Moles/Vol] 142 mmol/L Normal 136-145 [facility] Comment on above: Performed By: #### H BSAG, CMP, HCV1, RPR, HGMP, GFR, HIV, A1C, VARIS, RUBIS, ABSGEL #### [address] [address] Total Protein 6.6 G/dL Normal 5.7-8.2 [facility] Comment on above: Performed By: #### H BSAG, CMP, HCV1, RPR, HGMP, GFR, HIV, A1C, VARIS, RUBIS, ABSGEL #### [place] [address] Urea nitrogen [Mass/Vol] 19.0 mg/dL Normal 8.0-22.0 [facility] Comment on above: Performed By: #### H BSAG, CMP, HCV1, RPR, HGMP, GFR, HIV, A1C, VARIS, RUBIS, ABSGEL #### [place] [address] HBSAGon 09-29-2024 Hep B Surf Ag Non-Reactive Normal Non-Reactiv [facility] MAIN Comment on above: Performed By: #### H BSAG, CMP, HCV1, RPR, HGMP, GFR, HIV, A1C, VARIS, RUBIS, ABSGEL #### [place] [address] HCVon 09-29-2024 Hep C Ab Non-Reactive Normal Non-Reactiv [facility] MAIN Comment on above: Performed By: #### H BSAG, CMP, HCV1, RPR, HGMP, GFR, HIV, A1C, VARIS, RUBIS, ABSGEL #### [place] [address] Hep C Ab Int [facility] MAIN Comment on above: Result Comment: Nonr [...] GFR, HIV, A1C, VARIS, RUBIS, ABSGEL #### [place] [address] [facility] Erythrocyte distribution width (RBC) [Ratio] 12.3 % Normal 11.5-15.5 [facility] Comment on above: Performed By: #### H BSAG, CMP, HCV1, RPR, HGMP, GFR, HIV, A1C, VARIS, RUBIS, ABSGEL #### [place] [address] Hematocrit (Bld) [Volume fraction] 38.0 % Normal 34.0-46.0 [facility] Comment on above: Performed By: #### H BSAG, CMP, HCV1, RPR, HGMP, GFR, HIV, A1C, VARIS, RUBIS, ABSGEL #### [place] [address] Hgb 12.9 G/dL Normal 12.0-16.0 [facility] Comment on above: Performed By: #### H BSAG, CMP, HCV1, RPR, HGMP, GFR, HIV, A1C, VARIS, RUBIS, ABSGEL #### [place] [id number] MCH (RBC) [Entitic mass] 33.2 pg High 27.0-33.0 [facility] Comment on above: Performed By: #### H BSAG, CMP, HCV1, RPR, HGMP, GFR, HIV, A1C, VARIS, RUBIS, ABSGEL #### [place] [id number] MCHC 34.0 G/dL Normal 32.0-36.0 [facility] Comment on above: Performed By: #### H BSAG, CMP, HCV1, RPR, HGMP, GFR, HIV, A1C, VARIS, RUBIS, ABSGEL #### [place] [id number] MCV (RBC) [Entitic vol] 97.6 fL Normal 80.0-99.0 [facility] Comment on above: Performed By: #### H BSAG, CMP, HCV1, RPR, HGMP, GFR, HIV, A1C, VARIS, RUBIS, ABSGEL #### [place] [address] Platelet 275 10 3/mcL Normal 150-450 [facility] Comment on above: Performed By: #### H BSAG, CMP, HCV1, RPR, HGMP, GFR, HIV, A1C, VARIS, RUBIS, ABSGEL #### [place] [address] Platelet mean volume (Bld) [Entitic vol] 8.0 fL Normal 6.6-10.5 [facility] Comment on above: Performed By: #### H BSAG, CMP, HCV1, RPR, HGMP, GFR, HIV, A1C, VARIS, RUBIS, ABSGEL #### [place] [address] [place] [address] RBC 3.90 10 6/mcL Low 4.10-5.30 [facility] Comment on above: Performed By: #### H BSAG, CMP, HCV1, RPR, HGMP, GFR, HIV, A1C, VARIS, RUBIS, ABSGEL #### [place] [address] [place] [address] WBC 5.3 10 3/mcL Normal 4.5-10.8 [facility] Comment on above: Performed By: #### H BSAG, CMP, HCV1, RPR, HGMP, GFR, HIV, A1C, VARIS, RUBIS, ABSGEL #### [place] [address] HIVon 09-29-2024 HIV 1/2 Ab Non-Reactive Normal Non-Reactiv e [facility] Comment on above: Result Comment: Spec imen is negative for anti-HIV-1 and anti-HIV-2. Performed By: #### H BSAG, CMP, HCV1, RPR, HGMP, GFR, HIV, A1C, VARIS, RUBIS, ABSGEL #### [place] [address] LABORATORYOrdered By: SYSTEM SYSTEM on 09-29-2024 Albumin [...] above: Interpretive Data: T esting performed on [employer] analyzer using enzymatic creatinine methodology. Electrolyte Balance 6.0 mEq/L Normal 4.0 - 15 .0 mEq/L ADM SS Erythrocyte distribution width (RBC) [Ratio] 12.3 % Normal 11.5 - 15.5 % Workflow SS GFR/1.73 sq M.predicted among blacks MDRD (S/P/Bld) [Vol rate/Area] ml/min/1.73sqm Invalid Interpretation Code Localist Chemistry S Comment on above: Interpretive Data: [...] (S/P/Bld) [Vol rate/Area] ml/min/1.73sqm Invalid Interpretation Code Localist Chemistry S Comment on above: Interpretive Data: [...] calculated value from Hemoglobin A1C and is tax compliance representative of the average blood glucose level [...] 106/mcL Low 4.10 - 5.3 0 10^6/mcL Workflow SS Sodium [Moles/Vol] 142 mmol/L Normal [...] IA Ql Non-Reactive (09/29/24 1:05 PM) Normal Non-Reactiv e AH ADM SS HCV Ab IA Ql Non-Reactive (09/29/24 1:05 PM) Normal Non-Reactiv e ADM SS HCV Ab IA Ql Nonreactive: [...] 1/2 Ab Non-Reactive (09/29/24 1:05 PM) Normal Non-Reactiv e ADM SS Free T3on 09-14-2024 Free T3 [Mass/Vol] 2.4 pg/mL Normal 2.18-3.98 [facility] Comment on above: Performed By: #### L 506.0400, L501.81524, L501.9520 #### [facility] [address] [place], [place], [address] T4 Free Directon 09-14-2024 T4 FREE DIRECT 0.75 ng/dL Low 0.76-1.46 [facility] Comment on above: Performed By: #### L 506.0400, L501.83530 #### [facility] [address] [place], [address] Thyroid Stim Hormone (TSH)on 09-14-2024 TSH 1.460 uIU/mL Normal 0.358-3.740 [facility] Comment on above: Performed By: #### L 506.0400, L501.50758, L501.9520 #### [facility] [address] [place], [address] PROGESTERONE [CCL]on 024 Progesterone 25.0 ng/mL Normal See comment [facility] Comment on above: Result Comment: Mens trual Cycle Progesterone Reference Ranges: Follicular: <1.0 ng/mL Ovulation: <12.1 ng/mL Luteal: 1.8 to 23.9 ng/mL. Progesterone Reference Ranges vary by gestational period: First Trimester: 11.0 to 44.3 ng/mL Second Trimester: 25.4 to 83.3 ng/mL Third Trimester: 58.7 to 214 ng/mL Post menopausal Progesterone: <0.5 ng/mL Reference: 1. Progesterone (Progesterone III) [package insert V 1.0 Turkish]. [employer], [place], [place]. August 2015. [address] [address] Rambo Eckert III, M.D. [id number] Performed By: #### 2 [id number] #### [facility],[address] [place] [address] Progest [facility]-virgen 024 Progesterone [Mass/Vol] 25.0 ng/mL Normal See comment [facility] Comment on above: Order Comment: Speci men Type: BLOOD SPECIMEN Ordering Facility: [facility] Address: [address] [place] [id number] Result Comment: Mens trual Cycle Progesterone Reference Ranges: Follicular: <1.0 ng/mL Ovulation: <12.1 ng/mL Luteal: 1.8 to 23.9 ng/mL. Progesterone Reference Ranges vary by gestational period: First Trimester: 11.0 to 44.3 ng/mL Second Trimester: 25.4 to 83.3 ng/mL Third Trimester: 58.7 to 214 ng/mL Post menopausal Progesterone: <0.5 ng/mL Reference: 1. Progesterone (Progesterone III) [package insert V 1.0 Turkish]. [facility], [place], [place]. August 2015. Performed By: #### 2 839-9 #### [facility] CLIA [id number] [address] [place] [address] [place] No Panel InformationOrdered By: Kirby Burrows on 03-08-2024 Free Triiodothyronine (T3) pg/dL 2.4 pg/mL 2.18-3.98 [facility] Serum or plasma thyroid stim ulating hormone (TSH) measurement (units/volume)Ordered By: Kirby Burrows on 03-08-2024 TSH Qn 1.74 uIU/mL 0.358-3.74 [facility] Thin prep Papanicolaou smear with manual screeningOrdered By: Kirby Burrows on 03-08-2024 Thin prep Papanicolaou smear with manual screening 0.91 ng/dL 0.76-1.46 [facility] Final Surgical Pathology Rep [facility] 01-31-2024 Final Surgical Pathology Report . Pathology Reports Accession: Collected Date/Time: Received Date/Time: Pathologist: [id number] 01/27/2024 14:58 EDT 01/28/2024 08:09 EDT ALLIE [...] All parts labelled with patient name and [id number] Received in formalin labeled "sigmoid polyp" is 1 melendez-brown tissue fragment measuring 2.9 x 1.5 x 1.3 cm. Margin inked and specimen dissected. TS-3 Liliana Cuellar, Grossing Natural Resources Engineer/ Dr. Lam Lee, Pathologist Dictated by Liliana Cuellar MICROSCOPIC DESCRIPTION: The microscopic examination is performed, except in the case of Gross Only. Electronically Signed by Pathology Report verified by [facility] ALLIE BRAMBILA Sign out Date: 01/31/2024 11:19 Performing Lab: [facility], [address] [place] [address] Pathology Dept Disclaimer If ancillary studies were utilized, the following Laboratory Developed Test (LDT) disclaimer will apply: Under CLIA requirements, [facility] Pathology Laboratory is qualified to perform high complexity testing. For all ancillary stains, positive and negative controls stain appropriately. Performance characteristics of immunohistochemical and chromogenic in-situ hybridization tests have been determined by [facility] Pathology Laboratory. These tests are used for clinical purposes, They should not be regarded as investigational or for research. Normal [facility] ([place]) Laboratory - Microbiology an d Antimicrobial susceptibilityon 12-29-2023 SARS-CoV-2 (COVID-19) RNA NENA+probe Ql (Unsp spec) Not detected [facility] No Panel Informationon 12-29 Influenza Types A,B Rapid (Clinic) Pos FLU A &Neg FLU B [facility] Laboratory - Chemistry and C hemistry - challengeOrdered By: Kirby Burrows on 10-13-2023 Free T4 [Mass/Vol] 0.87 ng/dL 0.76-1.46 [facility] No Panel InformationOrdered By: Kirby Burrows on 10-13-2023 Free Triiodothyronine (T3) pg/dL 2.1 pg/mL 2.18-3.98 [facility] Thyroid Stimulating Hormone (TSH) 2.69 uIU/mL 0.358-3.74 [facility] Laboratory - Chemistry and C hemistry - challengeOrdered By: Kirby Burrows on 09-10-2023 Free T4 [Mass/Vol] 0.84 ng/dL 0.76-1.46 [facility] No Panel InformationOrdered By: Kirby Burrows on 09-10-2023 Free Triiodothyronine (T3) pg/dL 2.1 pg/mL 2.18-3.98 [facility] Thyroid Stimulating Hormone (TSH) 2.93 uIU/mL 0.358-3.74 [facility] Laboratory - Chemistry and C hemistry - challengeOrdered By: Dr. Burrows on 04-08-2023 Free T4 [Mass/Vol] 1.09 ng/dL 0.76-1.46 [facility] No Panel InformationOrdered By: Dr. Burrows on 04-08-2023 Free Triiodothyronine (T3) pg/dL 3.2 pg/mL 2.18-3.98 [facility] Thyroid Stimulating Hormone (TSH) 0.01 uIU/mL 0.358-3.74 [facility] Laboratory - Chemistry and C hemistry - challengeOrdered By: Dr. Burrows on 03-05-2023 Free T4 [Mass/Vol] 1.33 ng/dL 0.76-1.46 [facility] No Panel InformationOrdered By: Dr. Burrows on 03-05-2023 Free Triiodothyronine (T3) pg/dL 4.0 pg/mL 2.18-3.98 [facility] Thyroid Stimulating Hormone (TSH) < 0.01 uIU/mL 0.358-3.74 [facility] Laboratory - Chemistry and C hemistry - challengeOrdered By: Dr. Burrows on 10-15-2022 Cobalamin (Vitamin B12) [Mass/Vol] 419 pg/mL 211-911 [facility] Laboratory - Chemistry and C hemistry - challengeOrdered By: Zuleyma Shaffer on 10-15-2022 Free T4 [Mass/Vol] 0.84 ng/dL 0.76-1.46 [facility] No Panel InformationOrdered By: Zuleyma Shaffer on 10-15-2022 Free Triiodothyronine (T3) pg/dL 2.6 pg/mL 2.18-3.98 [facility] Thyroid Stimulating Hormone (TSH) 0.26 uIU/mL 0.358-3.74 [facility] Laboratory - Chemistry and C hemistry - challengeOrdered By: Dr. Burrows on 09-22-2022 Free T4 [Mass/Vol] 0.98 ng/dL 0.76-1.46 [facility] No Panel InformationOrdered By: Dr. Burrows on 09-22-2022 Free Triiodothyronine (T3) pg/dL 3.1 pg/mL 2.18-3.98 [facility] Thyroid Stimulating Hormone (TSH) 0.02 uIU/mL 0.358-3.74 [facility] Laboratory - Chemistry and C hemistry - challengeOrdered By: Dr. Burrows on 09-02-2022 Free T4 [Mass/Vol] 1.11 ng/dL 0.76-1.46 [facility] No Panel InformationOrdered By: Dr. Burrows on 09-02-2022 Free Triiodothyronine (T3) pg/dL 3.3 pg/mL 2.18-3.98 [facility] Thyroid Stimulating Hormone (TSH) 0.01 uIU/mL 0.358-3.74 [facility] Laboratory - Chemistry and C hemistry - challengeon 07-08-2022 Free T4 [Mass/Vol] 1.07 ng/dL 0.76-1.46 [facility] Work Phone: No Panel Informationon 07-08 Free Triiodothyronine (T3) pg/dL 3.2 pg/mL 2.18-3.98 [facility] Work Phone: Thyroid Stimulating Hormone (TSH) 0.19 uIU/mL 0.358-3.74 [facility] Work Phone: Initial Visit (Gastroenterol ogy)on 11-14-2020 [...] prior GI records from Dr. Patricio with [facility]. 2. Obtain tTG IgA CBC, CMP, ferritin, and vitamin profile. 3. Continue strict gluten free diet. 4. Begin using one heaping tablespoon of Benefiber in 8 ounces of water daily by mixing and drinking quickly. This product is lvin-ofq-rkhfixp. 5. Discussed antispasmodic trial pending the above. [...] telehealth visit. Celiac disease History of Present [id number] female seen today via virtual visit as a new patient regarding a history of celiac disease diagnosed in spring 2013. She was a prior patient of Dr. Patricio with [facility]. She states she had undergone EGD and [...] follows up with Dr. Howard Burrows with [facility] for management of her Graves' disease. Review [...] Recorded: 14Nov2020 11:58AM Height5 ft 11 in Aoenym497 lb BMI Byufcnthxn70.32 BSA Calculated1.92 [id number] Physical Exam Patient is alert and oriented and in no apparent distress. Patient is speaking in complete sentences without conversational dyspnea. No observed pallor or jaundice. Signatures Electronically signed by : Jillian Kraus PA-C; Nov 14 2020 12:35PM EST (Author) Normal [employer] PROGRESSon 09-28-2019 PROGRESS HNO ID: [id number] Author: Joy Galeano Service: ? Author Type: Physician Type: Progress Notes Filed: 09/28/2019 7:32 PM Note Text: Note: The following is an "abstracted" note of the either a previous or a new History of Present Illness. This is in prep for an up-coming appointment. This is not a gpgr-yt-uxve encounter. Previous history as follows: Thyroid gland disease: Previous history: 05/2015: TSH 0.600 (0.358-3.740 uIU/mL), at [facility] lab, 07/2018: Around this time she [...] 10/2018: Vitamin B-12 1058 (193-986 pg/mL), Normal [facility] CNOVon 06-01-2019 CNOV Office Visit (ENAGST ) RITIKA VEGA ([id number]) 1985 F Date Time Provider Department 06/01/19 1:30 PM JOY GALEANO During your visit today, we recorded the following information about you: Pulse Blood pressure Weight Height 59/minute 113/74 77.6 kg 1.778 m Joy Galeano MD 06/01/2019 6:24 PM Addendum . [facility] Endocrinology [address], [address] [place], [place] [address] [place] [address] Endocrinology - [address], [address] [place], [place] [address] Patient's name: Ritika Vega Patient's date of : 1985 Date of encounter: 06/01/2019 History of present illness: Ritika Vega is a 33 year old female who presents for follow up of an endocrinology issue. Previous history: 05/2015: TSH 0.600 (0.358-3.740 uIU/mL), at [facility] lab, 07/2018: Around this time she [...] medications I prescribe (or may prescribe) is: [employer] Review of Systems Constitutional: Negative for chills, [...] Laterality Date - EGD Upper endoscoscopy: Dr. 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 She will contact me via [employer] with new pharmacy information (next week, when [...] will send her a message, in the [employer] portal. She wanted to wait on Rx [...] those symptoms occur. Referring Provider: JOY GALEANO [[id number]] Allergies As of Date: 06/01/2019 (No Known Allergies) Date Reviewed: 06/01/2019 Reviewed by: Joy Galeano - Fully Assessed Reason for Visit: Follow Up [171] Thyroid Problem [110] Primary Visit Diagnosis:Graves disease [E05.00] Other Visit Diagnoses:Thyrotoxicos is without thyroid storm, unspecified thyrotoxicosis type [E05.90] Autoimmune disease (HCC) [D89.89] Celiac disease [K90.0] Taking medication for chronic disease [R69] Order(s):TSH BLD [SQTSH] Order #: [id number] FUTURE T4 FREE/FREE THYROX [SQFT4] Order #: [id number] FUTURE T3 FREE BLD [SQFREET3] Order #: [id number] FUTURE WBC W DIFF [2671996] Order #: [id number] FUTURE HEPATIC FUNCTION PNL [SQHFP] Order #: [id number] FUTURE Prescriptions as of 06/01/2019 Sig: RHINOCORT [...] by JOY GALEANO MD on 06/01/19 Normal [facility] Free T3on 06-01-2019 Free T3 [Mass/Vol] 4.1 pg/mL High 2.2-4.0 [facility] Comment on above: Performed By: #### F T4 #### [address] [address] Free Thyroxineon 06-01-2019 Free T4 [Mass/Vol] 1.39 ng/dL Normal 0.76-1.46 [facility] Comment on above: Performed By: #### F T4 #### [address] [address] Hepatic Panelon 06-01-2019 ALP [Catalytic activity/Vol] 62 U/L Normal 45-117 [facility] Comment on above: Performed By: #### F T4 #### [address] [address] Bilirubin [Mass/Vol] 0.5 mg/dL Normal 0.2-1.0 [facility] [place] [facility] Comment on above: Performed By: #### F T4 #### [address] [address] Protein [Mass/Vol] 6.8 g/dL Normal 6.4-8.2 [facility] Comment on above: Performed By: #### F T4 #### [address] [address] AST [Catalytic activity/Vol] 18 U/L Normal 15-37 [facility] Comment on above: Performed By: #### F T4 #### [address] [address] ALT [Catalytic activity/Vol] 31 U/L Normal 12-78 [facility] Comment on above: Performed By: #### F T4 #### [address] [address] Bilirubin [Mass/Vol] 0.14 mg/dL Normal 0.00-0.20 [facility] [place] [facility] Comment on above: Performed By: #### F T4 #### [facility] [address] [place], [place] [address] Albumin [Mass/Vol] 3.9 g/dL Normal 3.4-5.0 [facility] Comment on above: Performed By: #### F T4 #### [facility] 1 [place], [place] [address] PROGRESSon 06-01-2019 PROGRESS HNO ID: [id number] Author: Joy Galeano Service: ? Author Type: Physician Type: Progress Notes Filed: 06/01/2019 6:24 PM Note Text: . [facility] Endocrinology - [place] [address], [address] [place], [place] [address] [place] [address] Endocrinology - [address], [address] [place], [place] [address] Patient's name: Ritika Vega Patient's date of : 1985 Date of encounter: 06/01/2019 History of present illness: Ritika Vega is a 33 year old female who presents for follow up of an endocrinology issue. Previous history: 05/2015: TSH 0.600 (0.358-3.740 uIU/mL), at [facility] lab, 07/2018: Around this time she [...] medications I prescribe (or may prescribe) is: [employer] Review of Systems Constitutional: Negative for chills, [...] Laterality Date - EGD Upper endoscoscopy: Dr. 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 She will contact me via [employer] with new pharmacy information (next week, when [...] will send her a message, in the [employer] portal. She wanted to wait on Rx till she knows what her new plan requires. Joy Galeano MD 06/01/2019 18:24:32 Normal [facility] PROGRESS HNO ID: [id number] Author: Joy Galeano Service: ? Author Type: Physician Type: Progress Notes Filed: 06/01/2019 6:35 AM Note Text: Note: The following is an "abstracted" note of the either a previous or a new History of Present Illness. This is in prep for an up-coming appointment. This is not a izkb-si-agnc encounter. Previous history as follows: Previous history: 05/2015: TSH 0.600 (0.358-3.740 uIU/mL), at [facility] lab, 07/2018: Around this time she [...] 10/2018: Vitamin B-12 1058 (193-986 pg/mL), Normal [facility] TSH, 3rd generationon 2018 TSH, 3rd generation 0.006 uIU/mL Low 0.358-3.740 [facility] Comment on above: Performed By: #### F T4 #### [facility] [address] [place], [place] [address] WBC with Differentialon 05-09 Abs Immature Grans 0.01 thou/cmm Normal 0.00-0.05 [facility] Comment on above: Performed By: #### F T4 #### [facility] 1 [place], [place] [address] Abs Neut (ANC) 2.51 thou/cmm Normal 1.56-6.13 [facility] Comment on above: Performed By: #### F T4 #### [facility] 1 [place], [place] [address] Abs. Baso 0.05 thou/cmm Normal 0.01-0.08 [facility] Comment on above: Performed By: #### F T4 #### [facility] [address] [place], [place] [address] Abs. [place] 0.42 thou/cmm Normal 0.27-0.70 [facility] Comment on above: Performed By: #### F T4 #### [facility] 1 [place], [place] [address] Basophils/100 WBC (Bld) 0.9 % Normal A [facility] Comment on above: Performed By: #### F T4 #### [facility] 1 [place], [place] [address] Eosinophils (Bld) [#/Vol] 0.06 thou/cmm Normal 0.00-0.31 [facility] Comment on above: Performed By: #### F T4 #### [facility] [address] [place], [place] [address] Eosinophils/100 WBC (Bld) 1.0 % Normal [facility] Comment on above: Performed By: #### F T4 #### [facility] 1 [place], [place] [address] Immature Grans 0.20 % Normal [facility] Comment on above: Performed By: #### F T4 #### [facility] [address] [place], [place] [address] Lymphocytes (Bld) [#/Vol] 2.68 thou/cmm Normal 1.18-3.74 [facility] Comment on above: Performed By: #### F T4 #### [facility] [address] [place], [place] [address] Lymphocytes/100 WBC (Bld) 46.8 % Normal [facility] Comment on above: Performed By: #### F T4 #### [facility] [address] [place], [place] [address] Monocytes/100 WBC (Bld) 7.3 % Normal [facility] [email or web address] Comment on above: Performed By: #### F T4 #### [facility] [address] [place], [place] [address] Seg Neutrophil 43.8 % Normal [facility] Comment on above: Performed By: #### F T4 #### [facility] [address] [place], [place] [address] WBC (Bld) [#/Vol] 5.73 thou/cmm Normal 3.98-10.04 [facility] [place] [facility] Comment on above: Performed By: #### F T4 #### [facility] [address] [place], [place] [address] CNOVon 04-17-2019 CNOV Office Visit (AGC) RITIKA VEGA ([id number]) 1985 F Date Time Provider Department 04/17/19 2:[address] [facility] During your visit today, we recorded the [...] 1.18 - 3.74 thou/cmm Final - Abs. [place] 03/07/2019 0.42 0.27 - 0.70 thou/cmm Final [...] Laterality Date - EGD Upper endoscoscopy: Dr. 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 Celiac disease - ICD9: 579.0, ICD10: K90.0 Stable, continue gluten free diet 4. Need for Tdap vaccination - ICD9: V06.1, ICD10: Z23 - TDAP VACCINE AGE 7+ IM Sandy Dawn DO Referring Provider: SANDY DAWN [[id number]] Allergies As of Date: 04/17/2019 (No Known Allergies) Date Reviewed: 03/07/2019 Reviewed by: Joy Galeano - Fully Assessed Reason for Visit: Physical [83] Primary Visit Diagnosis:Encounter for general adult medical examination with abnormal findings [Z00.01] Other Visit Diagnoses:Graves disease [E05.00] Celiac disease [K90.0] Need for Tdap vaccination [Z23] Order(s):TDAP VACCINE AGE 7+ IM [39766PWF] Order #: [id number] Prescriptions as of 04/17/2019 Sig: RHINOCORT NASAL [...] by SANDY DAWN DO on 04/17/19 Normal [facility] PROGRESSon 04-17-2019 PROGRESS HNO ID: [id number] Author: Sandy Dawn Service: ? Author Type: [...] 1.18 - 3.74 thou/cmm Final - Abs. [place] 03/07/2019 0.42 0.27 - 0.70 thou/cmm Final [...] Laterality Date - EGD Upper endoscoscopy: Dr. 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 Celiac disease - ICD9: 579.0, ICD10: K90.0 Stable, continue gluten free diet 4. Need for Tdap vaccination - ICD9: V06.1, ICD10: Z23 - TDAP VACCINE AGE 7+ IM Sandy Dawn, DO Normal [facility] CNOVon 03-07-2019 CNOV Office Visit (ENAGST ) RITIKA VEGA ([id number]) 1985 F Date Time Provider Department 03/07/19 9:30 AM JOY GALEANO During your visit today, we recorded the following information about you: Pulse Blood pressure Weight Height 81/minute 106/70 74.8 kg 1.803 m Joy Galeano MD 03/08/2019 8:11 AM Addendum . [facility] Endocrinology - [address], [address] Endocrinology - [address], [address] [place], [place] [address] Patient's name: Ritika Vega Patient's date of : 1985 Date of encounter: 03/07/2019 History of present illness: Ritika Vega is a 33 year old female who presents for follow up of an endocrinology issue. Previous history: 05/2015: TSH 0.600 (0.358-3.740 uIU/mL), at [facility] lab, 07/2018: Around this time she [...] While trying to cut weight, training. 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 No [...] medications I prescribe (or may prescribe) is: [place] Review of Systems Constitutional: Negative for chills, [...] Laterality Date - EGD Upper endoscoscopy: Dr. 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 - TSH BLD; Future - T4 [...] will send her a message, in the [employer] portal. Joy Galeano MD 03/08/2019 08:11:44 Joy [...] those symptoms occur. Referring Provider: JOY GALEANO [[id number]] Allergies As of Date: 03/07/2019 (No Known Allergies) Date Reviewed: 03/07/2019 Reviewed by: Joy Galeano - Fully Assessed Reason for Visit: Thyroid Problem [110] Follow Up [171] Primary Visit Diagnosis:Graves disease [E05.00] Other Visit Diagnoses:Thyrotoxicos is without thyroid storm, unspecified thyrotoxicosis type [E05.90] Autoimmune disease (HCC) [D89.89] Celiac disease [K90.0] Taking medication for chronic disease [R69] Order(s):TSH BLD [SQTSH] Order #: [id number] FUTURE T4 FREE/FREE THYROX [SQFT4] Order #: [id number] FUTURE T3 FREE BLD [SQFREET3] Order #: [id number] FUTURE WBC W DIFF [8441839] Order #: [id number] FUTURE HEPATIC FUNCTION PNL [SQHFP] Order #: [id number] FUTURE Prescriptions as of 03/07/2019 Sig: TRIAMCINOLONE [...] by JOY GALEANO MD on 03/07/19 Normal [facility] Free T3on 03-07-2019 Free T3 [Mass/Vol] 3.9 pg/mL Normal 2.2-4.0 [facility] Comment on above: Performed By: #### F T4 #### [place] [address] Free Thyroxineon 03-07-2019 Free T4 [Mass/Vol] 1.32 ng/dL Normal 0.76-1.46 [facility] Comment on above: Performed By: #### F T4 #### [address] [address] Hepatic Panelon 03-07-2019 ALP [Catalytic activity/Vol] 90 U/L Normal 46-116 [facility] Comment on above: Performed By: #### F T4 #### [address] [address] Bilirubin [Mass/Vol] 0.15 mg/dL Normal 0.00-0.20 [facility] [place] [facility] Comment on above: Performed By: #### F T4 #### [address] [address] Protein [Mass/Vol] 7.3 g/dL Normal 6.4-8.2 [facility] Comment on above: Performed By: #### F T4 #### [address] [address] Bilirubin [Mass/Vol] 0.5 mg/dL Normal 0.2-1.0 [facility] [place] [facility] Comment on above: Performed By: #### F T4 #### [address] [address] ALT [Catalytic activity/Vol] 50 U/L Normal 12-78 [facility] Comment on above: Performed By: #### F T4 #### [facility] [address] [place], [place] [address] AST [Catalytic activity/Vol] 22 U/L Normal 9-37 [facility] Comment on above: Performed By: #### F T4 #### [facility] 1 [place], [place] [address] Albumin [Mass/Vol] 4.0 g/dL Normal 3.4-5.0 [facility] Comment on above: Performed By: #### F T4 #### [facility] 1 [place], [place] [address] PROGRESSon 03-07-2019 PROGRESS HNO ID: [id number] Author: Joy Galeano Service: ? Author Type: Physician Type: Progress Notes Filed: 03/08/2019 8:11 AM Note Text: . [facility] Endocrinology - [place] [address], [address] [place], [place] [address] [place] [address] Endocrinology - [address], [address] [place], [place] [address] Patient's name: Ritika Vega Patient's date of : 1985 Date of encounter: 03/07/2019 History of present illness: Ritika Vega is a 33 year old female who presents for follow up of an endocrinology issue. Previous history: 05/2015: TSH 0.600 (0.358-3.740 uIU/mL), at [facility] lab, 07/2018: Around this time she [...] While trying to cut weight, training. 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 No [...] medications I prescribe (or may prescribe) is: [employer] Review of Systems Constitutional: Negative for chills, [...] Laterality Date - EGD Upper endoscoscopy: Dr. 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 Joy Galeano MD 03/08/2019 08:11:44 Normal [facility] TSH, 3rd generationon 2018 TSH, 3rd generation <0.005 Low 0.358-3.740 [facility] [place] [facility] Comment on above: Performed By: #### F T4 #### [place] [address] WBC with Differentialon 02-08 Abs Immature Grans 0.03 thou/cmm Normal 0.00-0.05 [facility] Comment on above: Performed By: #### M AG #### [place] [address] Abs Neut (ANC) 4.48 thou/cmm Normal 1.56-6.13 [facility] Comment on above: Performed By: #### M AG #### [place] [address] Abs. Baso 0.04 thou/cmm Normal 0.01-0.08 [facility] Comment on above: Performed By: #### M AG #### [place] [address] Abs. [place] 0.42 thou/cmm Normal 0.27-0.70 [facility] Comment on above: Performed By: #### M AG #### [place] [address] Basophils/100 WBC (Bld) 0.6 % Normal A [facility] Comment on above: Performed By: #### M AG #### [facility] [address] [place], [place] [address] Eosinophils (Bld) [#/Vol] 0.04 thou/cmm Normal 0.00-0.31 [facility] Comment on above: Performed By: #### M AG #### [facility] [address] [place], [place] [address] Eosinophils/100 WBC (Bld) 0.6 % Normal [facility] Comment on above: Performed By: #### M AG #### [facility] 1 [place], [place] [address] Immature Grans 0.40 % Normal [facility] Comment on above: Performed By: #### M AG #### [address] [address] Lymphocytes (Bld) [#/Vol] 1.67 thou/cmm Normal 1.18-3.74 [facility] Comment on above: Performed By: #### M AG #### [address] [address] Lymphocytes/100 WBC (Bld) 25.0 % Normal [facility] Comment on above: Performed By: #### M AG #### [address] [address] Monocytes/100 WBC (Bld) 6.3 % Normal A [facility] Comment on above: Performed By: #### M AG #### [address] [address] Seg Neutrophil 67.1 % Normal [facility] Comment on above: Performed By: #### M AG #### [address] [address] WBC (Bld) [#/Vol] 6.67 thou/cmm Normal 3.98-10.04 [facility] [place] [facility] Comment on above: Performed By: #### M AG #### [address] [address] PROGRESSon 03-03-2019 PROGRESS HNO ID: [id number] Author: Joy Peaceyogesh Curranocco Service: ? Author Type: Physician Type: Progress Notes Filed: 03/03/2019 1:09 PM Note Text: Note: The following is an "abstracted" note of the either a previous or a new History of Present Illness. This is in prep for an up-coming appointment. This is not a atgt-ct-svox encounter. Previous history as follows: Previous history: 05/2015: TSH 0.600 (0.358-3.740 uIU/mL), at [facility] lab, 07/2018: Around this time she [...] 10/2018: Vitamin B-12 1058 (193-986 pg/mL), Normal [facility] CNOVon 02-28-2019 CNOV Office Visit (AGINTB A) RITIKA VEGA ([id number]) 1985 F Date Time Provider Department 02/28/19 [...] updated today in the History tab of [facility]. Current Medications and allergies reviewed. PAST MEDICAL HISTORY Diagnosis Date - B12 deficiency - Celiac disease Biopsy proven - Eating disorder history of age [age]. purging then restricting/ compulsive exercising - Graves disease 10/2018 PAST SURGICAL HISTORY Procedure Laterality Date - EGD Upper endoscoscopy: Dr. 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 Author Type: [...] updated today in the History tab of [employer]. Current Medications and allergies reviewed. PAST MEDICAL HISTORY Diagnosis Date - B12 deficiency - Celiac disease Biopsy proven - Eating disorder history of age [age]. purging then restricting/ compulsive exercising - Graves disease 10/2018 PAST SURGICAL HISTORY Procedure Laterality Date - EGD Upper endoscoscopy: Dr. 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 Mio Little MD Normal [facility] Free T3on 12-08-2018 Free T3 [Mass/Vol] 4.5 pg/mL High 2.2-4.0 [facility] Comment on above: Performed By: #### M AG #### [facility] [address] [place], [place] [address] Free Thyroxineon 12-08-2018 Free T4 [Mass/Vol] 1.70 ng/dL High 0.76-1.46 [facility] Comment on above: Performed By: #### M AG #### [facility] [address] [place], [place] [address] Hepatic Panelon 12-08-2018 ALP [Catalytic activity/Vol] 69 U/L Normal 46-116 [facility] Comment on above: Performed By: #### M AG #### [address] [address] ALT [Catalytic activity/Vol] 43 U/L Normal 12-78 [facility] Comment on above: Performed By: #### M AG #### [address] [address] Bilirubin [Mass/Vol] 0.12 mg/dL Normal 0.00-0.20 [facility] [place] [facility] Comment on above: Performed By: #### M AG #### [address] [address] Protein [Mass/Vol] 6.5 g/dL Normal 6.4-8.2 [facility] Comment on above: Performed By: #### M AG #### [facility] [address] [place], [place] [address] Bilirubin [Mass/Vol] 0.4 mg/dL Normal 0.2-1.0 [facility] [place] [facility] Comment on above: Performed By: #### M AG #### [facility] [address] [place], [place] [address] AST [Catalytic activity/Vol] 22 U/L Normal 9-37 [facility] Comment on above: Performed By: #### M AG #### [facility] 1 [place] [address] Albumin [Mass/Vol] 3.7 g/dL Normal 3.4-5.0 [facility] Comment on above: Performed By: #### M AG #### [facility] [address] [place], [place] [address] TSH, 3rd generationon 2018 TSH, 3rd generation <0.005 Low 0.358-3.740 [facility] [place] [facility] Comment on above: Performed By: #### M AG #### [facility] [address] [place] [address] WBC with Differentialon 11-10 Abs Immature Grans 0.02 thou/cmm Normal 0.00-0.05 [facility] Comment on above: Performed By: #### M AG #### [facility] [address] [place] [address] Abs. Baso 0.02 thou/cmm Normal 0.01-0.08 [facility] Comment on above: Performed By: #### M AG #### [facility] [address] [place] [address] Abs. [place] 0.37 thou/cmm Normal 0.27-0.70 [facility] Comment on above: Performed By: #### M AG #### [facility] [address] [place] [address] Abs. Neut (ANC) 3.38 thou/cmm Normal 1.56-6.13 [facility] Comment on above: Performed By: #### M AG #### [facility] [address] [place] [address] Basophils/100 WBC (Bld) 0.4 % Normal [facility] Comment on above: Performed By: #### M AG #### [facility] [address] [place] [address] Eosinophils (Bld) [#/Vol] 0.03 thou/cmm Normal 0.00-0.31 [facility] Comment on above: Performed By: #### M AG #### [facility] [address] [place] [address] Eosinophils/100 WBC (Bld) 0.6 % Normal [facility] Comment on above: Performed By: #### M AG #### [facility] 1 [place] [id number] Immature Grans 0.40 % Normal [facility] Comment on above: Performed By: #### M AG #### [facility] [address] [place], [place] [address] Lymphocytes (Bld) [#/Vol] 0.98 thou/cmm Low 1.18-3.74 [facility] Comment on above: Performed By: #### M AG #### [facility] [address] [place], [place] [address] Lymphocytes/100 WBC (Bld) 20.4 % Normal [facility] Comment on above: Performed By: #### M AG #### [facility] 1 [place] [address] Monocytes/100 WBC (Bld) 7.7 % Normal [facility] Comment on above: Performed By: #### M AG #### [facility] [address] [place], [place] [address] Seg Neutrophil 70.5 % Normal [facility] Comment on above: Performed By: #### M AG #### [facility] [address] [place], [place] [address] WBC (Bld) [#/Vol] 4.80 thou/cmm Normal 3.98-10.04 [facility] [place] [facility] Comment on above: Performed By: #### M AG #### [facility] 1 [place] [address] CNOVon 12-06-2018 CNOV Office Visit (ENAGST ) RITIKA VEGA ([id number]) 1985 F Date Time Provider Department 12/06/18 9:30 AM JOY GALEANO During your visit today, we recorded the following information about you: Pulse Blood pressure Weight Height 66/minute 107/71 73.1 kg 1.803 m Joy Galeano MD 12/08/2018 5:17 PM Addendum . [facility] General Endocrinology - [place] [address] [place] [address], [address] General Endocrinology - [address], [address] [place] [address] Patient's name: Ritika Vega Patient's date of : 1985 Date of encounter: 12/06/2018 History of present illness: Ritika Vega is a 33 year old female who presents for follow up of an endocrinology issue. Previous history: 05/2015: TSH 0.600 (0.358-3.740 uIU/mL), at [facility] lab, 07/2018: Around this time she [...] medications I prescribe (or may prescribe) is: [facility] [place] [address] - [address]- [phone] Portal to Registered [facility] Sites Review of Systems Constitutional: Positive [...] Laterality Date - EGD Upper endoscoscopy: Dr. PatricioJhdr-Ahlmb-Nzvrlmy Celiac Disease - ELBOW SURGERY HX 2008 [...] medications I prescribe (or may prescribe) is: [facility] [place] [address] - [address]??- [phone] Portal to [facility] Sites - TSH BLD; Future - T4 [...] least 48 hours, then get labs at [facility]. Joy Galeano MD 12/06/2018 10:01:39 [...] will send her a message, in the MyChart portal. Joy Galeano MD 12/08/2018 17:17:20 Joy [...] disease [R69] Order(s):TSH BLD [SQTSH] Order #: [id number] FUTURE T4 FREE/FREE THYROX [SQFT4] Order #: [id number] FUTURE T3 FREE BLD [SQFREET3] Order #: [id number] FUTURE WBC W DIFF [5966623] Order #: [id number] FUTURE HEPATIC FUNCTION PNL [SQHFP] Order #: [id number] FUTURE Prescriptions as of 12/06/2018 Sig: BIOTIN [...] by JOY GALEANO MD on 12/06/18 Normal [facility] PROGRESSon 12-06-2018 PROGRESS HNO ID: [id number] Author: Joy Galeano Service: (none) Author Type: Physician Type: Progress Notes Filed: 12/08/2018 5:17 PM Note Text: . [facility] Endocrinology - [place] [address], [address] Endocrinology - [address], [address] [place] [address] Patient's name: Ritika Vega Patient's date of : 1985 Date of encounter: 12/06/2018 History of present illness: Ritika Vega is a 33 year old female who presents for follow up of an endocrinology issue. Previous history: 05/2015: TSH 0.600 (0.358-3.740 uIU/mL), at [facility] lab, 07/2018: Around this time she [...] medications I prescribe (or may prescribe) is: [facility] [place] [address] - [address]??- [phone] Portal to Registered [facility] Sites Review of Systems Constitutional: Positive [...] Laterality Date - EGD Upper endoscoscopy: Dr. GriffithOkgo-Gpxgd-Taifucx Celiac Disease - ELBOW SURGERY HX 2008 [...] once daily. Disp: Rfl: Norethindrone Acet-Ethinyl Est (11/27, ,) [...] medications I prescribe (or may prescribe) is: [facility] [place] [address] - [address]??- [phone] Portal to Registered [facility] Sites - TSH BLD; Future - [...] least 48 hours, then get labs at [facility]. Joy Galeano MD 12/06/2018 10:01:39 [...] will send her a message, in the [facility] portal. Joy Galeano MD 12/08/2018 17:17:20 Normal [facility] PROGRESSon 12-01-2018 PROGRESS HNO ID: [id number] Author: Joy Galeano Service: (none) Author Type: Physician Type: Progress Notes Filed: 12/01/2018 5:27 PM Note Text: Note: The following is an "abstracted" note of the previous History of Present Illness, in prep for an up-coming appointment. This is not a xvdg-kv-cyto encounter. Previous history as follows: Previous history: 05/2015: TSH 0.600 (0.358-3.740 uIU/mL), at [facility] lab, 07/2018: Around this time she [...] pg/mL), But, currently ok on oral. Normal [facility] Hepatic Panelon 11-24-2018 Bilirubin [Mass/Vol] 0.12 mg/dL Normal 0.00-0.20 [facility] [place] [facility] Comment on above: Performed By: #### M AG #### [facility] [address] [place], [place] [address] ALP [Catalytic activity/Vol] 59 U/L Normal 46-116 [facility] Comment on above: Performed By: #### M AG #### [facility] [address] [place], [place] [address] Protein [Mass/Vol] 6.4 g/dL Normal 6.4-8.2 [facility] Comment on above: Performed By: #### M AG #### [facility] [address] [place], [place] [address] ALT [Catalytic activity/Vol] 46 U/L Normal 12-78 [facility] Comment on above: Performed By: #### M AG #### [facility] [address] [place], [place] [address] Bilirubin [Mass/Vol] 0.4 mg/dL Normal 0.2-1.0 [facility] [place] [facility] Comment on above: Performed By: #### M AG #### [facility] [address] [place], [place] [address] AST [Catalytic activity/Vol] 19 U/L Normal 9-37 [facility] Comment on above: Performed By: #### M AG #### [facility] [address] [place], [place] [address] Albumin [Mass/Vol] 3.6 g/dL Normal 3.4-5.0 [facility] Comment on above: Performed By: #### M AG #### [facility] [address] [place], [place] [address] TSH Receptor Antibodyon 10-09 TSH Receptor Antibody SEE BELOW Normal [facility] Comment on above: Result Comment: TSI 481 H <150 % Normal This test was developed and its performance characteristics determined by [facility]'s [facility] [place] ([facility]). It has not been cleared or approved by the FDA. [facility] is regulated under CLIA as qualified to perform high-complexity testing. This test is used for clinical purposes. It should not be regarded as investigational or for research. TBI 13.9 H <1.0 U/L This test was developed and its performance characteristics determined by [facility]'s [facility] [place] ([facility]). It has not been cleared or approved by the FDA. [facility] is regulated under CLIA as qualified to perform high-complexity testing. This test is used for clinical purposes. It should not be regarded as investigational or for research. Performing Laboratory: [place] [id number] [place] [address] Performed By: #### M AG #### [place] [address] CNOVon 10-25-2018 CNOV Office Visit (ENAGST ) VEGARITIKA SHEPPARD ([id number]) 1985 F Date Time Provider Department 10/25/18 3:15 PM JOY GALEANO During your visit today, we recorded the following information about you: Pulse Blood pressure Weight Height 52/minute 104/67 71.3 kg 1.8 m Joy Galeano MD 11/04/2018 11:49 AM Addendum . [facility] General Endocrinology - [address], [address] Endocrinology - [address], [address] [place] [address] Patient's name: Ritika Vega Patient's date of : 1985 Date of encounter: 10/25/2018 History of present illness: Ritika Vega is a 32 year old female who presents for an evaluation of an endocrine issue. She was referred to me by Dr Jim Dawn for an evaluation of thyrotoxicosis. 05/2015: TSH 0.600 (0.358-3.740 uIU/mL), at [facility] lab, 07/2018: Around this time she [...] pending. Initial consultation with me. 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 Of note, known heart murmur. Noted the palpitations for few months. Saw orthopedic recently, noted low BP. Then saw Primary Care Physician, as above. Not using any hanz-nmw-bjntanm Biotin supplements, or mulivitamins with large doses [...] Laterality Date - EGD Upper endoscoscopy: Dr. GriffithFugh-Aozkb-Nyihwkm Celiac Disease - ELBOW SURGERY HX 2008 [...] 30 day supply for initial Rx to: [facility]/pharmacy #[id number] [place] [address] - [address] [facility]??- [phone] ) 2. Celiac disease On gluten free [...] will send her a message, in the [facility] portal. Joy Galeano MD 11/04/2018 11:49:11 Joy [...] those symptoms occur. Referring Provider: SANDY DAWN [[id number]] Allergies As of Date: 10/25/2018 (No Known [...] Status:Closed by JOY GALEANO MD on 10/25/18 [facility] 10-25-2018 [facility] Telephone ([facility]) RITIKA VEGA ([id number]) 1985 F Date Time Provider Department 10/25/[address] [facility] During your visit today, we recorded the following information about you: Celio Mary Industrial Automation Engineer 10/25/2018 10:56 AM Signed Order placed via [facility] online referrals portal for consult to endocrinology. Referral # [id number] Celio Mary Industrial Automation Engineer 11/17/2018 2:03 PM Signed Good Morning, This e-mail is a confirmation that your patient listed below has been scheduled for an appointment with [facility] should you have any questions or concerns regarding this appointment please contact the appropriate office directly: Medical Records (Please Note) x Medical Records Are Not Required: Referring Office AND Specialist Are Both On [facility]. Medical Records Are Required: Fax Appropriate Records Including: Order, Last Office Note, AND Any Necessary Imaging/Labs/Etc. To: Additional Office Location Information AND Phone Numbers [facility] ? [facility] [place] ? [address] [place] [address]., [address] [address] ? [facility] ? [facility] ? [address] [place] [address]. [address] [place] [address] ? Allergies As of Date: 10/25/2018 (No [...] Encounter Status:Closed by CELIO PEREZ on 10/25/18 [facility] PROGRESSon 10-25-2018 PROGRESS HNO ID: [id number] Author: Joy Galeano Service: (none) Author Type: Physician Type: Progress Notes Filed: 11/04/2018 11:49 AM Note Text: . [facility] General Endocrinology - [place] [address], [address] General Endocrinology - [address], [address] [place], [place] [address] Patient's name: Ritika Vega Patient's date of : 1985 Date of encounter: 10/25/2018 History of present illness: Ritika Vega is a 32 year old female who presents for an evaluation of an endocrine issue. She was referred to me by Dr Jim Dawn for an evaluation of thyrotoxicosis. 05/2015: TSH 0.600 (0.358-3.740 uIU/mL), at [facility] lab, 07/2018: Around this time she [...] pending. Initial consultation with me. 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 Of note, known heart murmur. Noted the palpitations for few months. Saw orthopedic recently, noted low BP. Then saw Primary Care Physician, as above. Not using any cawz-afv-caipoye Biotin supplements, or mulivitamins with large doses [...] Laterality Date - EGD Upper endoscoscopy: Dr. GriffithRrmb-Nzcqe-Jykmbua Celiac Disease - ELBOW SURGERY HX 2007 [...] 30 day supply for initial Rx to: [facility]/pharmacy #[id number] [place] [address] - [address] [facility]??- [phone] ) 2. Celiac disease On gluten free [...] will send her a message, in the [facility] portal. Joy Galeano MD 11/04/2018 11:49:11 Normal [facility] T3, Totalon 10-19-2018 T3, Total 2.4 ng/mL High 0.6-1.8 [facility] Comment on above: Performed By: #### M AG #### [place] [address] Thyro. Peroxidase Abon 10-19 TPO Ab Qn 1568.3 IU/ml High 0.0-60.0 [facility] Comment on above: Performed By: #### M AG #### [place] [address] Free Thyroxineon 10-18-2018 Free T4 [Mass/Vol] 2.20 ng/dL High 0.76-1.46 [facility] Comment on above: Performed By: #### F T4 #### [place] [address] TSH, 3rd generationon 2017 TSH, 3rd generation <0.005 Low 0.358-3.740 [facility] [place] [facility] Comment on above: Performed By: #### T SH3 #### [place] [address] Total 25-OH Vitamin Don - Total 25-OH Vitamin D 36.2 ng/mL Normal 30.0-100.0 [facility] Comment on above: Performed By: #### 2 5VD1 #### [place] [address] CNOVon 10-13-2018 CNOV Office Visit ([facility]) RITIKA VEGA ([id number]) 1985 F Date Time Provider Department 10/13/18 11:[address] [facility] During your visit today, we recorded the following information about you: Temperature Pulse Respiration Blood pressure 96.4 degrees 56/minute 17/minute 102/64 Weight Height Last Period 70.8 kg 1.8 m 10/11/18 Sandy Dawn DO 10/13/2018 1:27 PM Signed Ritika Vega is a 32 year old female who presents with complaint of low BP, fatigue, palpitations, ear pressure HPI Went to orthopedic surgeon to get a cortisone shot in right [...] - PAST SURGICAL HISTORY OF UPPER ENDOSCOPY-DR GriffithVhcz-Qdqym-Ffvmrro Celiac Disease - TONSILLECTOMY AND ADENOIDECTOMY HX [...] Allergies) Date Reviewed: 10/13/2018 Reviewed by: Gladys WilliamsonExcela Frick Hospital[facility]ole Huffman - Fully Assessed Reason for Visit: Follow Up [171] Primary Visit Diagnosis:Palpitations [R00.2] Other Visit Diagnoses:Fatigue, unspecified type [R53.83] Eustachian tube dysfunction, bilateral [H69.83] Low blood pressure reading [R03.1] Order(s):CBC + DIFF [SQCBCDIF] Order #: [id number] FUTURE MAGNESIUM BLD [SQMG1] Order #: [id number] FUTURE VITAMIN D 25 HYDROXY [SQVITD] Order #: [id number] FUTURE TSH BLD [SQTSH] Order #: [id number] FUTURE VITAMIN B12 BLOOD [SQB12] Order #: [id number] FUTURE T4 FREE/FREE THYROX [SQFT4] Order #: [id number] FUTURE COMP METABOLIC PANEL [SQCMP] Order #: [id number] FUTURE ECG B/O W INTERP (MED OFFICE) [ECG06] Order #: [id number] Prescriptions as of 10/13/2018 Sig: NORETHINDRONE ACETATE [...] by SANDY DAWN DO on 10/13/18 Normal [facility] Comprehensive Panelon 2017 ALP [Catalytic activity/Vol] 69 U/L Normal 46-116 [facility] Comment on above: Performed By: #### P 14 #### [place] [address] Bilirubin [Mass/Vol] 0.4 mg/dL Normal 0.2-1.0 [facility] [place] [facility] Comment on above: Performed By: #### P 14 #### [facility] [place], [place] [address] Protein [Mass/Vol] 7.1 g/dL Normal 6.4-8.2 [facility] Comment on above: Performed By: #### P 14 #### [facility] [place], [place] [address] ALT [Catalytic activity/Vol] 51 U/L Normal 12-78 [facility] Comment on above: Performed By: #### P 14 #### [facility] [address] [place], [place] [address] AST [Catalytic activity/Vol] 22 U/L Normal 9-37 [facility] Comment on above: Performed By: #### P 14 #### [facility] [address] [place], [place] [address] Creatinine [Mass/Vol] 0.87 mg/dL Normal 0.51-0.95 [facility] Comment on above: Performed By: #### P 14 #### [facility] [address] [place], [place] [address] Albumin [Mass/Vol] 3.6 g/dL Normal 3.4-5.0 [facility] Comment on above: Performed By: #### P 14 #### [facility] [address] [place], [place] [address] Anion gap [Moles/Vol] 16 mmol/L Normal 8-16 [facility] Comment on above: Performed By: #### P 14 #### [facility] [address] [place], [place] [address] CO2 [Moles/Vol] 24 mmol/L Normal 21-32 [facility] Comment on above: Performed By: #### P 14 #### [facility] [address] [place], [place] [address] Glucose [Mass/Vol] 69 mg/dL Low 70-99 [facility] Comment on above: Performed By: #### P 14 #### [facility] [address] [place], [place] [address] Urea nitrogen [Mass/Vol] 19 mg/dL High 7-18 [facility] Comment on above: Performed By: #### P 14 #### [facility] [address] [place] [address] Calcium [Mass/Vol] 8.9 mg/dL Normal 8.5-10.1 [facility] Comment on above: Performed By: #### P 14 #### [facility] [address] [place] [address] Chloride [Moles/Vol] 105 mmol/L Normal 98-107 [facility] [place] [facility] Comment on above: Performed By: #### P 14 #### [facility] [address] [place] [address] Potassium [Moles/Vol] 5.0 mmol/L Normal 3.5-5.1 [facility] Comment on above: Performed By: #### P 14 #### [facility] [address] [place] [address] Sodium [Moles/Vol] 140 mmol/L Normal 136-145 [facility] Comment on above: Performed By: #### P 14 #### [facility] [address] [place] [address] Free Thyroxineon 10-13-2018 Free T4 [Mass/Vol] 2.19 ng/dL High 0.76-1.46 [facility] Comment on above: Performed By: #### F T4 #### [facility] [address] [place] [address] Hemogram/Diffon 10-13-2018 Abs Immature Grans 0.02 thou/cmm Normal 0.00-0.05 [facility] Comment on above: Performed By: #### C BCD1 #### [facility] [address] [place] [address] Abs. Baso 0.03 thou/cmm Normal 0.01-0.08 [facility] Comment on above: Performed By: #### C BCD1 #### [facility] [address] [place] [address] Abs. [place] 0.52 thou/cmm Normal 0.27-0.70 [facility] Comment on above: Performed By: #### C BCD1 #### [facility] [address] [place] [address] Abs. Neut (ANC) 4.16 thou/cmm Normal 1.56-6.13 [facility] Comment on above: Performed By: #### C BCD1 #### [facility] [address] [place] [address] Basophils/100 WBC (Bld) 0.4 % Normal [facility] Comment on above: Performed By: #### C BCD1 #### [facility] [address] [place] [address] Eosinophils (Bld) [#/Vol] 0.04 thou/cmm Normal 0.00-0.31 [facility] Comment on above: Performed By: #### C BCD1 #### [facility] [address] [place] [address] Eosinophils/100 WBC (Bld) 0.6 % Normal [facility] Comment on above: Performed By: #### C BCD1 #### [facility] [address] [place] [address] Erythrocyte distribution width (RBC) [Ratio] 11.9 % Normal 11.7-14.4 [facility] Comment on above: Performed By: #### C BCD1 #### [facility] [address] [place] [address] Hematocrit (Bld) [Volume fraction] 43.2 % Normal 34.1-44.9 [facility] Comment on above: Performed By: #### C BCD1 #### [facility] [address] [place] [address] Hemoglobin (Bld) [Mass/Vol] 14.2 g/dL Normal 11.2-15.7 [facility] Comment on above: Performed By: #### C BCD1 #### [facility] [address] [place] [address] Immature Grans 0.30 % Normal [facility] Comment on above: Performed By: #### C BCD1 #### [facility] [address] [place] [address] Lymphocytes (Bld) [#/Vol] 2.01 thou/cmm Normal 1.18-3.74 [facility] Comment on above: Performed By: #### C BCD1 #### [facility] [place], [place] [address] Lymphocytes/100 WBC (Bld) 29.6 % Normal [facility] Comment on above: Performed By: #### C BCD1 #### [facility] [place], [place] [address] MCH (RBC) [Entitic mass] 31.0 pg Normal 25.6-32.2 [facility] Comment on above: Performed By: #### C BCD1 #### [facility] [place], [place] [address] MCHC (RBC) [Mass/Vol] 32.9 % Normal 31.6-34.8 [facility] Comment on above: Performed By: #### C BCD1 #### [facility] [address] [place], [place] [address] MCV (RBC) [Entitic vol] 94.3 fL Normal 79.4-94.8 [facility] Comment on above: Performed By: #### C BCD1 #### [facility] [place], [place] [address] Monocytes/100 WBC (Bld) 7.7 % Normal [facility] Comment on above: Performed By: #### C BCD1 #### [facility] [place], [place] [address] Platelet mean volume (Bld) [Entitic vol] 10.8 fL Normal 9.4-12.3 [facility] Comment on above: Performed By: #### C BCD1 #### [facility] [place], [place] [address] Platelets (Bld) [#/Vol] 322 thou/cmm Normal 182-369 [facility] Comment on above: Performed By: #### C BCD1 #### [facility] [place], [place] [address] RBC (Bld) [#/Vol] 4.58 mil/cmm Normal 3.93-5.22 [facility] Comment on above: Performed By: #### C BCD1 #### [facility] [address] [place] [id number] RDW SD 41.5 fl Normal 36.4-46.3 [facility] Comment on above: Performed By: #### C BCD1 #### [facility] [address] [place] [id number] Seg Neutrophil 61.4 % Normal [facility] Comment on above: Performed By: #### C BCD1 #### [facility] 1 [place] [id number] WBC (Bld) [#/Vol] 6.78 thou/cmm Normal 3.98-10.04 [facility] [place] [facility] Comment on above: Performed By: #### C BCD1 #### [place] [address] MDRD GFRon 10-13-2018 GFR/1.73 sq M predicted among non-blacks MDRD (S/P/Bld) [Vol rate/Area] mL/min/{1.73_m2} Normal >60mL/min/1 .73m2 [facility] Comment on above: Result Comment: If t he patient is , multiply the result by 1.210. Performed By: #### G FR #### [place] [address] Magnesium Bloodon 10-13-2018 Magnesium [Mass/Vol] 2.2 mg/dL Normal 1.6-2.6 [facility] [place] [facility] Comment on above: Performed By: #### M AG #### [place] [address] PROGRESSon 10-13-2018 PROGRESS HNO ID: [id number] Author: Sandy Dawn Service: (none) Author Type: Physician Type: Progress Notes Filed: 10/13/2018 1:27 PM Note Text: Ritika Vega is a 32 year old female who presents with complaint of low BP, fatigue, palpitations, ear pressure HPI Went to orthopedic surgeon to get a cortisone shot in right [...] HX 2007 left - KNEE SURGERY HX 2006 Left x 2 - LASIK 2013 - ORAL SURGERY PROCEDURE 2006 - PAST SURGICAL HISTORY OF UPPER ENDOSCOPY-DR GriffithFvwi-Ibevz-Yyggjjj Celiac Disease - TONSILLECTOMY AND ADENOIDECTOMY HX [...] R03.1 reassurance given. Sandy Dawn, DO Normal [facility] TSH, 3rd generationon 2017 TSH, 3rd generation <0.005 Low 0.358-3.740 [facility] [place] [facility] Comment on above: Performed By: #### T SH3 #### [facility] [address] [place] [address] Vitamin B12on 10-13-2018 Cobalamin (Vitamin B12) [Mass/Vol] 1058 pg/mL High 193-986 [facility] Comment on above: Performed By: #### B 12 #### [facility] [place], [place] [address] Vital Signs Date Time Vital Sign Value Performing Clinician Fidel winter 08-12-2025 19:59-0400 Body temperature 98 [degF] Kaci Iban DO Work Phone: [facility] [place] 08-12-2025 19:59-0400 Diastolic blood pressure 86 mm[Hg] Kaci Iban DO Work Phone: [facility] [place] 08-12-2025 19:59-0400 Heart rate 78 /min Kaci Iban DO Work Phone: [facility] [place] 08-12-2025 19:59-0400 Respiratory rate 16 /min Kaci Iban DO Work Phone: [phone] [place] [address] 08-12-2025 19:59-0400 SaO2% (BldA) [Mass fraction] 100 % Kaci Iban DO Work Phone: [phone] [place] [address] 08-12-2025 19:59-0400 Systolic blood pressure 122 mm[Hg] Kaci Iban DO Work Phone: [phone] [place] [address] 08-12-2025 16:05-0400 Body height 180.34 cm Kaci Iban DO Work Phone: [phone] [place] [address] 08-12-2025 16:05-0400 Body mass index (BMI) [Ratio] 22.9 kg/m2 Kaci Iban DO Work Phone: [phone] [place] [address] 08-12-2025 16:05-0400 Body weight 74.7 kg Kaci Iban DO Work Phone: [phone] [address] 02-15-2025 08:35-0400 Body height 180.34 cm Yony Phan MD Work Phone: [facility] 02-15-2025 08:35-0400 Body mass index (BMI) [Ratio] 22.4 kg/m2 Yony Phan MD Work Phone: [facility] 02-15-2025 08:35-0400 Body weight 73.02 kg Yony Phan MD Work Phone: [facility] 02-15-2025 08:35-0400 Diastolic blood pressure 75 mm[Hg] Yony Phan MD Work Phone: [facility] 02-15-2025 08:35-0400 Heart rate 65 /min Yony Phan MD Work Phone: [facility] 02-15-2025 08:35-0400 SaO2% (BldA) [Mass fraction] 98 % Yony Phan MD Work Phone: [facility] 02-15-2025 08:35-0400 Systolic blood pressure 109 mm[Hg] Yony Phan MD Work Phone: [facility] 01-01-2025 09:05-0500 Body height 180.34 cm Yony Phan MD Work Phone: [facility] 01-01-2025 09:02-0500 Body mass index (BMI) [Ratio] 22.3 kg/m2 Yony Phan MD Work Phone: [facility] 01-01-2025 09:02-0500 Body weight 72.57 kg Yony Phan MD Work Phone: [facility] 01-01-2025 09:02-0500 Diastolic blood pressure 75 mm[Hg] Yony Phan MD Work Phone: [facility] 01-01-2025 09:02-0500 Systolic blood pressure 120 mm[Hg] Yony Phan MD Work Phone: [facility] 11-14-2024 09:02-0500 Body height 180.3 cm Jazmyne Argueta BRANCH OFFICE MANAGER - THEORETICAL PHYSICS TEACHER Work Phone: [facility] 11-14-2024 09:02-0500 Body mass index (BMI) [Ratio] 22.32 kg/m2 Jazmyne Argueta BRANCH OFFICE MANAGER - THEORETICAL PHYSICS TEACHER Work Phone: [facility] 11-14-2024 09:02-0500 Body weight 72.58 kg Jazmyne Argueta BRANCH OFFICE MANAGER - THEORETICAL PHYSICS TEACHER Work Phone: [facility] 11-14-2024 09:02-0500 Diastolic blood pressure 78 mm[Hg] Jazmyne Argueta BRANCH OFFICE MANAGER - THEORETICAL PHYSICS TEACHER Work Phone: [facility] 11-14-2024 09:02-0500 Heart rate 61 /min Jazmyne Argueta BRANCH OFFICE MANAGER - THEORETICAL PHYSICS TEACHER Work Phone: [facility] 11-14-2024 09:02-0500 Systolic blood pressure 124 mm[Hg] Jazmyne Argueta BRANCH OFFICE MANAGER - THEORETICAL PHYSICS TEACHER Work Phone: [facility] 11-06-2024 19:00-0500 Diastolic blood pressure 64 mm[Hg] Pedro Edwards MD Work Phone: [facility] 11-06-2024 19:00-0500 Heart rate 81 /min Pedro Edwards MD Work Phone: [facility] 11-06-2024 19:00-0500 SaO2% (BldA) [Mass fraction] 100 % Pedro Edwards MD Work Phone: [facility] 11-06-2024 19:00-0500 Systolic blood pressure 119 mm[Hg] Pedro Edwards MD Work Phone: [facility] 11-06-2024 17:45-0500 Body temperature 97 [degF] Pedro Edwards MD Work Phone: [facility] 11-06-2024 15:45-0500 Respiratory rate 14 /min Pedro Edwards MD Work Phone: [facility] 11-06-2024 11:44-0500 Body height 180.3 cm Pedro Edwards MD Work Phone: [facility] 11-06-2024 11:44-0500 Body mass index (BMI) [Ratio] 22.32 kg/m2 Pedro Edwards MD Work Phone: [facility] 11-06-2024 11:44-0500 Body weight 72.58 kg Pedro Edwards MD Work Phone: [facility] 10-30-2024 15:15-0500 Body height 180.3 cm Pedro Edwards MD Work Phone: [facility] 10-30-2024 15:15-0500 Body mass index (BMI) [Ratio] 22.45 kg/m2 Pedro Edwards MD Work Phone: [facility] 10-30-2024 15:15-0500 Body weight 73.03 kg Pedro Edwards MD Work Phone: [facility] 10-30-2024 15:15-0500 Diastolic blood pressure 85 mm[Hg] Pedro Edwards MD Work Phone: [facility] 10-30-2024 15:15-0500 Heart rate 62 /min Pedro Edwards MD Work Phone: [facility] 10-30-2024 15:15-0500 Systolic blood pressure 133 mm[Hg] Pedro Edwards MD Work Phone: [facility] 03-09-2024 08:36-0400 Body height 180.34 cm DO Nacho Iban Work Phone: [facility] 03-09-2024 08:36-0400 Body mass index (BMI) [Ratio] 22.3 kg/m2 DO Nacho Iban Work Phone: [facility] 03-09-2024 08:36-0400 Body temperature 97.5 [degF] DO Nacho Iban Work Phone: [facility] 03-09-2024 08:36-0400 Body weight 72.57 kg DO Nacho Iban Work Phone: [facility] 03-09-2024 08:36-0400 Diastolic blood pressure 69 mm[Hg] DO Nacho Iban Work Phone: [facility] 03-09-2024 08:36-0400 Heart rate 60 /min DO Nacho Iban Work Phone: [facility] 03-09-2024 08:36-0400 SaO2% (BldA) [Mass fraction] 98 % DO Nacho Iban Work Phone: [facility] 03-09-2024 08:36-0400 Systolic blood pressure 116 mm[Hg] DO Nacho Iban Work Phone: [facility] 12-29-2023 13:42-0500 Body mass index (BMI) [Ratio] 22.3 kg/m2 DO Nacho Iban Work Phone: [facility] 12-29-2023 13:42-0500 Body temperature 98.2 [degF] DO Nacho Iban Work Phone: [facility] 12-29-2023 13:42-0500 Body weight 72.57 kg DO Nacho Iban Work Phone: [facility] 12-29-2023 13:42-0500 Diastolic blood pressure 68 mm[Hg] DO Nacho Iban Work Phone: [facility] 12-29-2023 13:42-0500 Heart rate 74 /min DO Nachosanta Barrynger Work Phone: [facility] 12-29-2023 13:42-0500 SaO2% (BldA) [Mass fraction] 99 % DO Nacho Iban Work Phone: [facility] 12-29-2023 13:42-0500 Systolic blood pressure 104 mm[Hg] DO Nachosanta Barrynger Work Phone: [facility] 11-11-2023 08:06-0500 Body height 180.34 cm DO Nacho Iban Work Phone: [facility] 11-11-2023 08:06-0500 Body mass index (BMI) [Ratio] 22.6 kg/m2 DO Nacho Iban Work Phone: [facility] 11-11-2023 08:06-0500 Body weight 73.7 kg DO Nachosanta Barrynger Work Phone: [facility] 11-11-2023 08:06-0500 Diastolic blood pressure 70 mm[Hg] DO Nachosanta Barrynger Work Phone: [facility] 11-11-2023 08:06-0500 Systolic blood pressure 107 mm[Hg] DO Nacho Iban Work Phone: [facility] 09-09-2023 14:58-0400 Body height 180.34 cm DO Nacho Iban Work Phone: [facility] 09-09-2023 14:58-0400 Body mass index (BMI) [Ratio] 22.5 kg/m2 DO Nacho Iban Work Phone: [facility] 09-09-2023 14:58-0400 Body temperature 98 [degF] DO Nachosanta Barrynger Work Phone: [facility] 09-09-2023 14:58-0400 Body weight 73.19 kg DO Nacho Iban Work Phone: [facility] 09-09-2023 14:58-0400 Diastolic blood pressure 76 mm[Hg] DO Nachosanta Barrynger Work Phone: [facility] 09-09-2023 14:58-0400 Heart rate 80 /min DO Nachosanta Barrynger Work Phone: [facility] 09-09-2023 14:58-0400 Respiratory rate 16 /min DO Nachosanta Barrynger Work Phone: [facility] 09-09-2023 14:58-0400 SaO2% (BldA) [Mass fraction] 98 % DO Nachosanta Barrynger Work Phone: [facility] 09-09-2023 14:58-0400 Systolic blood pressure 128 mm[Hg] DO Nachosanta Barrynger Work Phone: [facility] 04-08-2023 08:01-0400 Body height 180.34 cm DO Nachosanta Barrynger Work Phone: [facility] 04-08-2023 08:01-0400 Body mass index (BMI) [Ratio] 22.1 kg/m2 DO Nachosanta Barrynger Work Phone: [facility] 04-08-2023 08:01-0400 Body temperature 98.4 [degF] DO Nacho Iban Work Phone: [facility] 04-08-2023 08:01-0400 Body weight 71.89 kg DO Nacho Iban Work Phone: [facility] 04-08-2023 08:01-0400 Diastolic blood pressure 66 mm[Hg] DO Nacho Iban Work Phone: [facility] 04-08-2023 08:01-0400 Heart rate 64 /min DO Nacho Ferrera Work Phone: [facility] 04-08-2023 08:01-0400 Respiratory rate 16 /min DO Nacho Ferrera Work Phone: [facility] 04-08-2023 08:01-0400 SaO2% (BldA) [Mass fraction] 98 % DO Nacho Ferrera Work Phone: [facility] 04-08-2023 08:01-0400 Systolic blood pressure 115 mm[Hg] DO Nacho Ferrera Work Phone: [facility] 10-08-2022 08:07-0500 Body height 180.34 cm No Primary Care Physician [facility] 10-08-2022 08:07-0500 Body mass index (BMI) [Ratio] 22.4 kg/m2 No Primary Care Physician [facility] 10-08-2022 08:07-0500 Body temperature 97.1 [degF] No Primary Care Physician [facility] 10-08-2022 08:07-0500 Body weight 72.8 kg No Primary Care Physician [facility] 10-08-2022 08:07-0500 Diastolic blood pressure 73 mm[Hg] No Primary Care Physician [facility] 10-08-2022 08:07-0500 Heart rate 56 /min No Primary Care Physician [facility] 10-08-2022 08:07-0500 Respiratory rate 18 /min No Primary Care Physician [facility] 10-08-2022 08:07-0500 SaO2% (BldA) [Mass fraction] 98 % No Primary Care Physician [facility] 10-08-2022 08:07-0500 Systolic blood pressure 116 mm[Hg] No Primary Care Physician [facility] 04-16-2022 08:07-0400 Body height 180.34 cm No Primary Care Physician [facility] Work Phone: 04-16-2022 08:07-0400 Body mass index (BMI) [Ratio] 21.6 kg/m2 No Primary Care Physician [facility] Work Phone: 04-16-2022 08:07-0400 Body temperature 97.2 [degF] No Primary Care Physician [facility] Work Phone: 04-16-2022 08:07-0400 Body weight 70.36 kg No Primary Care Physician [facility] Work Phone: 04-16-2022 08:07-0400 Diastolic blood pressure 70 mm[Hg] No Primary Care Physician [facility] Work Phone: 04-16-2022 08:07-0400 Heart rate 53 /min No Primary Care Physician [facility] Work Phone: 04-16-2022 08:07-0400 Respiratory rate 16 /min No Primary Care Physician [facility] Work Phone: 04-16-2022 08:07-0400 SaO2% (BldA) [Mass fraction] 99 % No Primary Care Physician [facility] Work Phone: 04-16-2022 08:07-0400 Systolic blood pressure 120 mm[Hg] No Primary Care Physician [facility] Work Phone: Encounters Encounter Date Encounter Type Care Provider Facility Start: 08-28-2025 ambulatory Kaci Ferrera VSC Faci lity:[facility] Start: 08-27-2025 Encounter for other preprocedural examination [facility] Start: 08-24-2025 Encounter for other preprocedural examination [facility] Start: 08-24-2025 End: 08-24-2025 ambulatory Kaci Ferrera VSC Facility:[facility] Start: 08-17-2025 End: 08-17-2025 ambulatory Kaci Ferrera VSC Facility:[facility] Start: 08-12-2025 End: 08-12-2025 Emergency department patient visit Kaci Ferrera DO Work Phone: -Emergency Department Work Phone: Start: 08-03-2025 End: 08-03-2025 ambulatory Yony Phan MD Work Phone: -[facility] [place] Start: 08-03-2025 End: 08-03-[address] Kirby Burrows MD -[facility] [place] Work Phone: Start: 08-03-2025 End: 08-03-2025 ambulatory [facility] Facility:[facility] Start: 07-06-2025 End: 07-06-2025 ambulatory Yony Phan MD Work Phone: -[facility] [place] Start: 07-06-2025 End: 07-06-[address] Kirby Burrows MD -[facility] [place] Work Phone: Start: 07-06-2025 End: 07-06-2025 ambulatory [facility] Facility:[facility] Start: 06-18-2025 End: 06-18-2025 ambulatory Yony Phan MD Work Phone: -[facility] [place] Start: 06-18-2025 End: 06-18-[address] Kirby Burrows MD -[facility] [place] Work Phone: Start: 06-18-2025 End: 06-18-2025 ambulatory [facility] Facility:[facility] Start: 05-25-2025 End: 05-25-2025 ambulatory Yony Phan MD Work Phone: -[facility] [place] Start: 05-25-2025 End: 05-25-[address] Kirby Burrows MD -[facility] [place] Work Phone: Start: 05-25-2025 End: 05-25-2025 ambulatory [facility] Facility:[facility] Start: 05-10-2025 End: 05-10-2025 ambulatory Yony Phan MD Work Phone: -[facility] [place] Start: 05-10-2025 End: 05-10-[address] Kirby Burrows MD -Labor[facility] [place] Work Phone: Start: 05-10-2025 End: 05-10-2025 ambulatory Kaci Ferrera [facility] Facility:[facility] Start: 04-27-2025 End: 04-27-2025 ambulatory Yony Phan MD Work Phone: [facility] Work Phone: Start: 04-27-2025 End: 04-27-[address] Kirby Burrows MD -Laboratory [facility] Work Phone: Start: 04-27-2025 End: 04-27-2025 ambulatory Kaci Iban VSC Facility:[facility] Start: 04-23-2025 End: 04-23-2025 ambulatory Dee Ruiz Glasgow DO Work Phone: Orthopaedics Start: 04-23-2025 End: 04-23-2025 Follow-up encounter Dee Ruiz Glasgow DO Work Phone: Orthopaedics Comment on above: Follow up Start: 04-13-2025 End: 04-13-2025 ambulatory Yony Phan MD Work Phone: [facility] Work Phone: Start: 04-13-2025 End: 04-13-[address] Kirby Burrows MD -Laboratory [employer] Work Phone: Start: 04-13-2025 End: 04-13-2025 ambulatory Kirby Burrows Facility:[facility] Start: 03-28-2025 End: 03-28-2025 ambulatory Yony Phan MD Work Phone: [facility] Work Phone: Start: 03-28-2025 End: 03-28-2025 Patient encounter procedure Zuleyma ROMEROC -Laboratory [place] Work Phone: Start: 03-28-2025 End: 03-28-2025 ambulatory Zuleyma Shaffer Facility:[facility] Start: 03-23-2025 End: 03-23-2025 Patient encounter procedure Dee Ruiz Glasgow DO Work Phone: Orthopaedics Comment on above: Glenoid labral tear, right, initial encounter (Primary Dx); Tendinopathy of right rotator cuff Start: 03-23-2025 End: 03-23-2025 ambulatory NACHO FERRERA Facility:[facility] Start: 03-21-2025 End: 03-21-2025 E-mail encounter from caregiver Dee Glasgow MD Work Phone: Orthopaedics Start: 03-21-2025 End: 03-21-2025 Patient encounter procedure Dee Glasgow MD Work Phone: Orthopaedics Comment on above: Upcoming PRP appoint ment Start: 03-15-2025 End: 03-15-2025 ambulatory Yony Phan MD Work Phone: [facility] Work Phone: Start: 03-15-2025 End: 03-15-[address] Kirby Burrows MD -Laboratory, [place] Work Phone: Start: 03-15-2025 End: 03-15-2025 ambulatory Kirby [place] Facility:[facility] Start: 02-15-2025 End: 02-15-[address] Kirby Burrows MD -[facility] Work Phone: Start: 02-15-2025 End: 02-15-2025 ambulatory Yony Phan Facility:[facility] Start: 01-08-2025 End: 01-08-2025 ambulatory Yony Phan MD Work Phone: [facility] Work Phone: Start: 01-08-2025 End: 01-08-[address] Kirby Burrows MD -Laboratory, [place] Work Phone: Start: 01-08-2025 End: 01-08-2025 ambulatory [facility] Facility:[facility] Start: 01-03-2025 End: 01-03-2025 ambulatory INNA BUSTILLOS DO Facility:[facility] Start: 01-03-2025 End: 01-03-2025 Patient encounter procedure INNA BUSTILLOS DO [facility] Start: 01-01-2025 End: 01-01-2025 Patient encounter procedure Earnestine GONZÁLES -[place] [facility] Start: 01-01-2025 End: 01-01-2025 Patient encounter status Earnestine GONZÁLES [facility] Start: 01-01-2025 End: 01-01-2025 ambulatory Yony Phan Facility:[facility] Start: 12-27-2024 End: 12-27-2024 ambulatory [facility] Start: 12-08-2024 End: 12-08-[address] Kirby Burrows MD -Laboratory, [place] Work Phone: Start: 12-08-2024 End: 12-08-2024 ambulatory Kirby Burrows Facility:[facility] Start: 11-14-2024 End: 11-14-2024 Telemedicine consultation with patient Dee Joseph Glasgow DO Work Phone: Orthopaedics Start: 11-14-2024 End: 11-14-2024 ambulatory Dee D Glasgow DO Work Phone: Orthopaedics Comment on above: Glenoid labral tear, right, initial encounter (Primary Dx); Tendinopathy of right rotator cuff Start: 11-14-2024 End: 11-14-2024 Postop follow up visit related to original px Jazmyne Argueta BRANCH OFFICE MANAGER - THEORETICAL PHYSICS TEACHER Work Phone: [facility] Gynecologic Oncology - [place] Comment on above: Postop check (Primar y Dx) Start: 11-06-2024 End: 11-06-2024 ambulatory PEDRO EDWARDS [facility] Start: 11-06-2024 End: 11-06-2024 Subsequent hospital visit by physician Pedro Edwards MD Work Phone: [facility] Comment on above: Intra-abdominal and pelvic swelling, mass and lump, unspecified site Start: 11-03-2024 End: 11-03-2024 ambulatory PEDRO EDWARDS [facility] Start: 10-31-2024 End: 10-31-2024 ambulatory Dee D Glasgow DO Work Phone: Orthopaedics Start: 10-31-2024 End: 10-31-2024 Patient encounter procedure Dee Glasgow DO Work Phone: Orthopaedics Comment on above: Virtual appointment Start: 10-30-2024 End: 10-30-2024 ambulatory PEDRO EDWARDS [facility] Start: 10-30-2024 End: 10-30-2024 Office outpatient new 45 minutes Pedro Edwards MD Work Phone: [facility] - [place] Comment on above: Ovarian mass (Primar y Dx); Mature cystic teratoma; Primary female infertility Start: 10-30-2024 End: 10-30-2024 ambulatory NACHO FERRERA Facility:[facility] Start: 10-30-2024 End: 10-30-2024 Subsequent hospital [...] Radiology XR Start: 10-18-2024 End: 10-18-2024 ambulatory [facility] Facility:[facility] Start: 10-13-2024 End: 10-13-2024 ambulatory [facility] Start: 10-03-2024 End: 10-03-2024 Orders Only Daniel Bourgeois MD Work Phone: Referring Physician Comment on above: Pain (Primary Dx) Start: 09-29-2024 End: 09-29-2024 ambulatory INNA BUSTILLOS DO Facility:[facility] Start: 09-29-2024 End: 09-29-2024 Patient encounter procedure INNA BUSTILLOS DO [facility] Start: 09-14-2024 End: 09-14-2024 ambulatory [facility] Facility:[facility] Start: 08-16-2024 End: 08-16-2024 ambulatory [facility] Start: 03-09-2024 End: 03-09-2024 Patient encounter procedure DO Nacho Ferrera Work Phone: [facility] Work Phone: Start: 03-08-2024 End: 03-08-2024 ambulatory DO Nacho Ferrera Work Phone: [facility] Work Phone: Start: 03-08-2024 End: 03-08-2024 Patient encounter procedure DO Nacho Ferrera Work Phone: [facility] Work Phone: Start: 01-27-2024 End: 02-01-2024 ambulatory NACHO FERRERA Facility:[facility] Start: 01-27-2024 End: 01-31-[address] TINO CHRISTIANSON MD [facility] Start: 12-29-2023 End: 12-29-2023 Patient encounter procedure DO Nacho Ferrera Work Phone: [facility] Work Phone: Start: 11-11-2023 End: 11-11-2023 ambulatory DO Nacho Ferrera Work Phone: [facility] Work Phone: Start: 11-11-2023 End: 11-11-2023 Patient encounter procedure DO Nacho Ferrera Work Phone: [facility]-Laboratory, Specimen Work Phone: Start: 11-11-2023 End: 11-11-2023 Patient encounter procedure DO Nacho Ferrera Work Phone: [facility] @ Start: 10-13-2023 End: 10-13-2023 ambulatory DO Nacho Ferrera Work Phone: [facility] Work Phone: Start: 10-13-2023 End: 10-13-2023 Patient encounter procedure DO Nacho Ferrera Work Phone: [facility]-Laboratory Work Phone: Start: 09-10-2023 End: 09-10-2023 ambulatory DO Nacho Ferrera Work Phone: [facility] Work Phone: Start: 09-10-2023 End: 09-10-2023 Patient encounter procedure DO Nacho Ferrera Work Phone: [facility]-Ultrasound, H Work Phone: Start: 09-09-2023 End: 09-09-2023 Patient encounter procedure DO Nacho Ferrera Work Phone: [facility] Endocrinology Work Phone: Start: 07-13-2023 End: 07-13-2023 ambulatory DO Nacho Ferrera Work Phone: [facility] Work Phone: Start: 07-13-2023 End: 07-13-2023 Patient encounter procedure DO Nacho Ferrera Work Phone: [facility]-Outpatient Bone Densitometry Work Phone: Start: 05-21-2023 End: 05-21-2023 ambulatory Va Beasley MD Work Phone: Endocrinology Comment on above: Graves disease (Prim brennan Dx); Celiac disease Start: 05-21-2023 End: 05-21-2023 Telemedicine consultation with patient Va Beasley MD Work Phone: [facility] Start: 04-08-2023 End: 04-08-2023 ambulatory DO Nacho Barrynger Work Phone: [facility] Work Phone: Start: 04-08-2023 End: 04-08-2023 Patient encounter procedure DO Nacho Barrynger Work Phone: [facility] Endocrinology Start: 03-05-2023 End: 03-05-2023 ambulatory [facility] Work Phone: Start: 03-05-2023 End: 03-05-2023 Patient encounter procedure [facility] Start: 12-22-2022 End: 12-22-2022 ambulatory No Primary Care Physician [facility] Work Phone: Start: 12-22-2022 End: 12-22-2022 Patient encounter procedure No Primary Care Physician [facility] Start: 10-15-2022 End: 10-15-2022 ambulatory No Primary Care Physician [facility] Work Phone: Start: 10-15-2022 End: 10-15-2022 Patient encounter procedure No Primary Care Physician [facility] [facility] Start: 10-08-2022 End: 10-08-2022 Patient encounter procedure No Primary Care Physician [facility] Endocrinology Start: 09-22-2022 End: 09-22-2022 ambulatory [facility] Work Phone: Start: 09-22-2022 End: 09-22-2022 Patient encounter procedure [facility] Start: 09-02-2022 End: 09-02-2022 ambulatory [facility] Work Phone: Start: 09-02-2022 End: 09-02-2022 Patient encounter procedure [facility] Start: 07-08-2022 End: 07-08-2022 ambulatory No Primary Care Physician [facility] Work Phone: Start: 07-08-2022 End: 07-08-2022 Patient encounter procedure No Primary Care Physician [facility] Start: 04-16-2022 End: 04-16-2022 Patient encounter procedure No Primary Care Physician [facility] Endocr[facility]ology Procedures Date Procedure Procedure Detail Performing Clinician Start: 08-12-2025 Radiologic exam ches t 2 views Kaci Ferrera DO Work Phone: Start: 08-12-2025 D-dimer assay, quantitative Kaci Ferrera DO Work Phone: Comment on above: NORMAL D-Dimer level (<0.50) indicates no DVT or PE. Start: 08-12-2025 Estimated creatinine clearance Kaci Ferrera DO Work Phone: Start: 03-23-2025 Njx pltlt plasma w/i mg harvest/preparation Dee Glasgow DO Work Phone: Start: 03-23-2025 Arthrocentesis aspir &/inj major jt/bursa w/us Dee Ruiz Glasgow DO Work Phone: Start: 11-06-2024 End: 11-06-2024 Ovarian cystectomy uni/bi Pedro Antoine MD Work Phone: Start: 11-06-2024 Urine test visual color cmprsn meths Bety Ayon BRANCH OFFICE MANAGER - THEORETICAL PHYSICS TEACHER Work Phone: Start: 10-30-2024 Mri any jt upper ext remity w/o contrast matrl Dee Joseph Glasgow DO Work Phone: Start: 09-10-2023 US scan of thyroid DO Jim Ferrera Work Phone: Start: 07-13-2023 Dual energy X-ray absorptiometry DO Nacho Iban Work Phone: Start: 12-22-2022 MRI of lumbar spine No Primary Care Physician Plan of Treatment Date Care Activity Detail Author Start: 2061 RSV Immunization for Adults (1 - 1-dose 75+ series) RSV Immunization for Adults (1 - 1-dose 75+ series) [facility] Start: 2036 Zoster Vaccines (1 of 2) Zoster Vaccines (1 of 2) [facility] Start: 04-17-2029 DTaP/Tdap/Td Vaccines (7 - Td or Tdap) DTaP/Tdap/Td Vaccines (7 - Td or Tdap) [facility] Start: 04-17-[address] [facility] Start: 08-12-2025 [facility] Start: 08-12-2025 End: 08-12-2025 [facility] Start: 07-09-2025 Influenza vaccination Influenza Vaccine (Season Ended) [facility] Start: 03-23-2025 End: 03-23-2025 Patient encounter procedure 03/23/2025 11:30 AM EDT Office Visit Orthopaedics [address] [place] [address] Dee Glasgow, DO [address] [place] [address] PRP INJECTION - RIGHT SHOULDER Orthopaedics Comment on above: PRP INJECTION - RIGHT SHOULDER Start: 11-14-2024 End: 11-14-2024 Follow-up encounter 11/14/2024 1:30 PM [facility] Orthopaedics [address] [place] [address] Dee Glasgow, DO [address] [place] [address] Follow up left shoulder/MRI results Orthopaedics Comment on above: Follow up left shoulder/MRI results Start: 11-14-2024 End: 11-14-2024 Patient encounter procedure 11/14/2024 9:00 AM EST Office Visit [facility] - [place] [address] [place] [address] Jazmyne Argueta, ONESIMO - THEORETICAL PHYSICS TEACHER [address] [place] [address] [facility] Start: 11-06-2024 End: 11-06-2024 Admission to same day surgery center 11/06/2024 1:30 PM EST - 11/06/2024 2:30 PM EST Surgery [facility] MA[facility] OR [address] [facility] [place] [phone] Pedro Edwards MD [address] [facility] [address] [place], [place] [id number] LAPAROSCOPIC OVARIAN CYSTECTOMY [07818 (CPT )] [facility] Comment on above: LAPAROSCOPIC OVARIAN CYSTECTOMY [34848 ( CPT )] Start: 11-06-2024 End: 11-06-2024 Anesthesia consultation 11/06/2024 1:30 PM EST Anesthesia Event [facility] [address] [facility] [place] [phone] Bety Ayon, BRANCH OFFICE MANAGER - THEORETICAL PHYSICS TEACHER [address] [place] [address] [facility] Start: 11-06-2024 End: 11-06-2024 Ovarian cystectomy uni/bi OVARIAN CYSTECTOMY Intra-abdominal and pelvic swelling, mass and lump, unspecified site 11/06/2024 1:30 PM EST [facility] Operating Room Start: 11-06-2024 Subsequent hospital visit by physician 11/06/2024 1:30 PM EST Hospital Encounter [facility] [address] [facility] [place] [phone] Pedro Edwards MD [address] [facility] [address] [place] [address] [facility] Start: 10-30-2024 End: 10-30-2024 Patient encounter procedure 10/30/2024 7:30 AM EST Appointment Radiology [address] [place] [address] Right shoulder Radiology Comment on above: Right shoulder Start: 10-19-2024 End: 10-19-2024 Patient encounter procedure Radiology Comment on above: xr shoulder Labral tear Start: 07-09-2024 Covid-19 Vaccine ( season) Covid-[address] () [facility] Start: 07-09-2024 Influenza vaccination Influenza Vaccine (#1) [facility] Start: 11-11-2023 Liquid based cervical cytology screening [facility] Start: 07-09-2023 Influenza vaccination INFLUENZA (#1) [facility] Start: 05-21-2023 End: 07-21-2023 THYROID STIMULATING IMMUNOGLOBULIN BLOOD THYROID STIMULATING IMMUNOGLOBULIN BLOOD Lab Routine Graves disease Expected: 05/21/2023, Expires: 07/21/2023 [facility] Work Phone: Comment on above: Expected: 05/21/2023, Expires: 3 Start: 05-21-2023 End: 07-21-2023 Thyrotropin [Units/volume] in Serum or Plasma TSH BLD Lab Routine Graves disease Expected: 05/21/2023, Expires: 07/21/2023 [facility] Work Phone: Comment on above: Expected: 05/21/2023, Expires: 3 Start: 05-21-2023 End: 07-21-2023 Thyroxine (T4) free [Mass/volume] in Serum or Plasma T4 FREE/FREE THYROX Lab Routine Graves disease Expected: 05/21/2023, Expires: 07/21/2023 [facility] Work Phone: Comment on above: Expected: 05/21/2023, Expires: 3 Start: 05-21-2023 End: 07-21-2023 Triiodothyronine (T3) Free [Mass/volume] in Serum or Plasma T3 FREE BLD Lab Routine Graves disease Expected: 05/21/2023, Expires: 07/21/2023 [facility] Work Phone: Comment on above: Expected: 05/21/2023, Expires: 3 Start: 11-08-2022 DEPRESSION ASSESSMENT DEPRESSION ASSESSMENT [facility] Start: 09-02-2022 COVID-19 VACCINE (4 - Moderna series) COVID-19 VACCINE (4 - Moderna series) [facility] Start: 01-06-2019 PAP TESTING PAP TESTING [facility] Start: 01-06-2017 Screening for malignant neoplasm of cervix Cervical Cancer Screening [facility] Start: 2016 HPV TESTING HPV TESTING [facility] Start: 2016 Screening for malignant neoplasm of cervix [facility] Start: 2007 Screening for malignant neoplasm of cervix Pap Smear [facility] Start: 2004 Anxiety Screening Anxiety Screening [facility] Start: 2004 Depression Screening Depression Screening [facility] Start: 2004 HEPATITIS C SCREENING HEPATITIS C SCREENING [facility] Start: 2004 Hepatitis C screening Hepatitis C Screening [facility] Start: 2004 HIV SCREENING HIV SCREENING [facility] Start: 2004 HIV screening HIV Screening [facility] Start: 1999 Varicella vaccination Varicella Vaccines (1 of 2 - 13+ 2-dose series) [facility] Start: 1998 Depression Screening Depression Screening [facility] Start: 1986 HEPATITIS B (1 of 3 - 3-dose series) HEPATITIS B (1 of 3 - 3-dose series) [facility] Start: 1986 HIV screening HIV Screening [facility] Start: 1986 Thyroid stimulating hormone measurement TSH Level [facility] End: 11-17-2025 MR Shoulder - right WO contrast MRI SHOULDER WO IVCON RIGHT Radiology Routine Glenoid labral tear, right, initial encounter Tendinopathy of right rotator cuff 1 Occurrences starting 10/18/2024 until 11/17/2025 [facility] Work Phone: Comment on above: 1 Occurrences starting 10/18/2024 until 11/17/2025 Non-Gynecologic Cytology [facility] Work Phone: Comment on above: Release Upon Ordering for 1 Occurrences starting 11/06/2024 Path report.final Dx Spec [facility] Patient Education ED Chest Pain [facility] Work Phone: T4 free measurement [facility] Thyroid stimulating hormone measurement [facility] Tissue exam [facility] Comment on above: Release Upon Ordering for 1 Occurrences starting 11/06/2024 Triiodothyronine, fr ee measurement [facility] End: 11-02-2025 XR Shoulder - left 3 Views XR SHOULDER GENERAL 3V OR MORE AP/TRUE AP/OTHER LEFT Radiology Routine Pain 1 Occurrences starting 10/03/2024 until 11/02/2025 [facility] Work Phone: Comment on above: 1 Occurrences starting 10/03/2024 until 11/02/2025 End: 11-02-2025 XR Shoulder - right 3 Views XR SHOULDER GENERAL 3V OR MORE AP/TRUE AP/OTHER RIGHT Radiology Routine Pain 1 Occurrences starting 10/03/2024 until 11/02/2025 [facility] Comment on above: 1 Occurrences starting 10/03/2024 until 11/02/2025 [facility] Immunizations Immunization Date Immunization Notes Care Provider Amberly campos 04-17-2019 tetanus toxoid, redu shonna diphtheria toxoid, and acellular pertussis vaccine, adsorbed Va Beasley MD Work Phone: [facility] 10-13-2018 influenza virus vacc ine, unspecified formulation Daniel Bourgeois MD Work Phone: [facility] Payers Date Payer Category Payer Self-pay [id number] 2024 Commercial [facility] [employer] [id number] 2024 Private Health Insurance [id number] 2023 Unknown [id number] 2022 Unknown [id number]. 1.13.159.2. [id number] 1986 Unknown [id number] 2.0.1.628886.3.579.2. 627 1986 Unknown [id number] 2.0.1.972370.3.579.2. 627 1986 Unknown [id number] 2.0.1.953629.3.579.2. 651 1986 Unknown [id number] 2.0.1.790822.3.579.2. 651 1986 Unknown [id number] 2.0.1.630761.3.579.2. 479 1986 Unknown [id number] 2..1.101965.3.579.2. 627 Unknown [facility] [id number] [facility] [id number] Unknown . [id number] [address] [facility] [id number] Unknown [id number] .1.828173.3.579.2. 462 Unknown [id number] .1.418486.3.579.2. 462 Unknown [id number] .0.1.074868.3.579.2. 462 Unknown [id number] 2.0.1.656178.3.579.2. 462 Unknown [id number] 2.0.1.149819.3.579.2. 462 Unknown [id number] ..1.780530.3.579.2. 462 Unknown [id number] 2.16.840.1.028506.3.579.2. 462 Unknown [id number] 2.16.840.1.029339.3.579.2. 462 Unknown [id number] 2.16.840.1.107351.3.579.2. 462 Unknown [id number] 2.16.840.1.752998.3.579.2. 462 Unknown [id number] 2.16.840.1.832376.3.579.2. 462 Unknown [id number] 2.16.840.1.156016.3.579.2. 462 Unknown [id number] 2.16.840.1.650597.3.579.2. 462 Unknown [id number] 2.16.840.1.296527.3.579.2. 462 Unknown [id number] 2.16.840.1.748511.3.579.2. 462 Unknown [id number] 2.16.840.1.947825.3.579.2. 462 Unknown [id number] 2.16.840.1.361691.3.579.2. 462 Unknown [id number] 2.16.840.1.700192.3.579.2. 462 Unknown [id number] 2.16.840.1.772101.3.579.2. 462 Social History Date Type Detail Facility Start: 04-16-2022 End: 12-29-2023 Tobacco smoking status ALIS Unknown if ever smoked [facility] Start: 1985 Sex Assigned At Female W [facility] Start: 11-19-2015 End: 08-12-2025 Tobacco smoking status ALIS Never smoked tobacco [facility] Start: 11-19-2015 End: 11-03-2024 Tobacco use and exposure Smokeless tobacco non-user [facility] Start: 08-05-2021 End: 11-06-2024 Alcohol intake Current drinker of alcohol (finding) [facility] Start: 08-05-2021 End: 05-06-2023 History of [address] [facility] Start: 08-05-2021 End: 05-06-[address] [facility] Adult Depression Screening Assessment 0 [facility] Start: 1985 Sex Assigned At Not on file [facility] Start: 06-08-2022 End: 01-19-2025 Sex Female (finding) [facility] Sexual Orientation Stephen Cronin Mental Status Date Assessment Result Facility 08-12-2025 Cognitive function [facility] Work Phone: Clinical Notes 05-21-2023 to 08-12-2025 Note Date & Type Note Facility 08-12-2025 Discharge summary [facility] 08-12-2025 Radiology Diagnostic study note [facility] Imaging Services [address] [place], [place] [address] Chest PA and Lateral MR#: [id number] Acct: [id number] Name: RITIKA VEGA Rep #: [id number] : 1985 F 39 From: [employer] MD PCP: Kaci Ferrera DO Status: REG ER Study:Chest PA and Lateral Date of Exam: 08/12/25 Exam# [id number] Ordering Dr: Zachary Gannon DO PROCEDURE: CHEST PA AND LATERAL 08/12/2025 REASON FOR EXAM: CHEST PAIN TECHNIQUE: Procedure Code: RADCXR Modality: DX Procedure: CHEST PA AND LATERAL FINDINGS: No focal consolidation. No pleural effusion or pneumothorax. Cardiac silhouette is within normal limits. No acute fractures. RAD/Chest PA and Lateral IMPRESSION: No focal consolidations. Reading Location: [id number] CC: Dr. Zachary Ceron DO; Kaci Ferrera DO ~ Manufacturing Operations Manager: Signed [facility] 08-12-2025 Discharge summary Note Date/Time August 12, 2025 7:56pm [facility] Medical Records Department [address] [place] [address] Emergency Department Summary 08/12/25 MR#: [id number] Acct: [id number] Name: RITIKA VEGA Rep #:[id number] : 1985 39 From: Zachary kingsley DO PCP: Kaci Ferrera DO Status:REG ER Location: ED HPI History of Present Illness Chief Complaint: Chest Pain Narrative Narrative: Chief complaint and HPI: 39-year-old female with past medical history of Graves'disease presents for evaluation of sternal chest pain. Patient states for the past several days she has been having sternal chest pain. Describes it as tight. States it was originally only present when lying down however today became constant. Associated symptom is mild shortness of breath. She states she has a family history of heart disease. Non-smoker. She is on controlas she is involved in infertility treatment. Denies a history of DVT/PE, blood clotting disorder, recent trauma or surgery, unilateral leg swelling, travel. She denies any fever, chills, abdominal pain, nausea, vomiting. States it does not feel like acid reflux. Has not taken anything for the pain. Review of systems: See HPI Medications: As listed on the chart Allergies: As listed on the chart PFSH: Per chart Vital signs: As listed on the chart. Reviewed. Physical exam: Gen: A&O x3, NAD Head: Normocephalic, atraumatic Eyes: No sclera icterus, conjunctiva clear ENT: Moist mucous membranes Neck: Trachea midline CV: RRR, no murmurs, no peripheral edema, chest pain nonreproducible on physicalexam Resp: Lungs CTA BL, no w/r/c GI: Abd soft, non-distended, non-tender, no r/r/g Musc: Full ROM, no deformity Skin: Warm, dry Neuro: Alert, oriented, grossly intact, sensation intact Psych: Cooperative, appropriate mood and affect [facility] Medical History Paresthesia Graves disease Celiac disease Heart murmur GI problem Anemia Seasonal allergies Home Medications ?Medication ?Instructions ?Recorded ?Last Taken ?Type omega-3 fatty acids 1,000 mg 1,000 mg PO DAILY 0 Unknown History capsule (Fish Oil Concentrate) coenzyme Q10 10 mg capsule (Co 10 mg PO ONCE 07/28/24 Unknown History Q-10) vits 75-iron 28 mg-folic pkg PO 07/28/24 Unkn own History acid 800 mcg-omega-3 oral combo pack (One A Day Women's DHA) desogestrel 0.15 mg-ethinyl 1 tab PO QDAY 02/15/25 Unk nown History estradiol 0.03 mg tablet (Apri) propylthiouracil 50 mg tablet See Rx Instructions PO T ID #204 08/06/25 Unknown Rx tabs Allergy/AdvReac Type Severity Reaction Status Date / Time No Known Allergies Allergy Verified 08/12/25 16:05 Family History Mother Fibromyalgia Depression Hypertension Hyperlipidemia Grandmother Breast cancer Diabetes Heart disease Skin cancer Father Hypertension Grandfather CVA (cerebral vascular accident) Surgical History Hx of LASIK H/O elbow surgery H/O left knee surgery Social History adopted: No household members: spouse [...] in: other frequency: 3-4 times per week dina/tenriism: Mosque seatbelt use: always do you feel safe at home: Yes 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 Physical Exam Const Vital Signs: 08/12/25 16:05 08/12/25 17:05 08/12/25 17:10 Temperature 97.6 F L Temperature Source Temporal Pulse Rate 60 57 L Respiratory Rate 20 H 14 Respiratory Effort Normal Non-Labored Blood Pressure 145/79 H 124/83 H Blood Pressure Mean 101 96 Pulse Ox 100 100 Oxygen Delivery Method Room Air Room Air 08/12/25 17:10 08/12/25 18:00 08/12/25 19:00 Temperature Temperature Source Pulse Rate 55 L 56 L Respiratory Rate 18 16 Respiratory Effort Blood Pressure 114/77 119/78 Blood Pressure Mean 89 91 Pulse Ox 100 92 Oxygen Delivery Method Room Air Room Air Room Air MDM MDM MDM Narrative Medical decision making narrative: 39-year-old female with past medical history of Graves' disease presents for evaluation of sternal chest pain. Patient states for the past several days she has been having sternal chest pain. Describes it as tight. States it was originally only present when lying down however today became constant. Associated symptom is mild shortness of breath. Differential diagnosis includesbut is not limited to myofascial spasm, costochondritis, ACS, PE, electrolyte abnormality. Aspirin ordered. Cardiac workup ordered. EKG and chest x-ray reviewed see below. CBC without leukocytosis or anemia. Platelets unremarkable. Coagulation panel unremarkable. D-dimer unremarkable. BMP unremarkable. Troponin x 2 unremarkable. BNP unremarkable. Serum negative. On reevaluation, patient's chest pain has improved. States is resolved. At this point in time no clear etiology for her chest pain although it is atypical. Her heart score is a 1 which places her in low Risk category for ACS. However given her family history and her nonspecific ST changes I did speak with cardiology. They agree that patient's chest pain is atypical and these changes are nonspecific. Recommend discharge home and follow-up in their office. Patient confirmed understand the plan. Return precautions explained. Patient stable to discharge home. EKG: Interpreted by me/EM physician: EKG shows sinus bradycardia with a heart rate of56. T wave inversions in V2, V3, V4. I do not have a previous EKG to compare to. No ST depressions or elevation. Diagnostic: Interpreted by me/EM physician: Chest x-ray without pneumonia, effusion, cardiomegaly, pneumothorax. Radiology in agreement Impression: 1. Chest pain Lab Data Labs: Laboratory Results - last 24 hr 08/12/25 08/12/25 08/12/25 16:33 16:49 17:00 WBC 5.9 RBC 3.81 L Hgb 12.5 Hct 36.3 L MCV 95.3 MCH 32.8 H MCHC 34.4 RDW Std Deviation 42.1 RDW Coeff of Zelda 12.0 Plt Count 247 MPV 9.5 Immature Gran % (Auto) 0.200 Neut % (Auto) 50.2 Lymph % (Auto) 41.7 H [place] % (Auto) 4.6 Eos % (Auto) 2.6 Baso % (Auto) 0.7 Absolute Neuts (auto) 2.9 Absolute Lymphs (auto) 2.44 Nucleated RBC % 0 PT 13.7 INR 1.0 APTT 26.7 D-Dimer Quant (PE/DVT) 0.27 Sodium 139 Potassium 4.3 Chloride 105 Carbon Dioxide 23.3 Anion Gap 11 BUN 17 Creatinine 1.05 Estim Creat Clear Calc 81.20 Est GFR (MDRD) Non-Af 70 BUN/Creatinine Ratio 16.0 Glucose 107 H Calcium 8.9 Troponin T High Sens < 6 Troponin T Hi Sens 2 Hr NT pro BNP II < 36 Serum , Qual NEGATIVE 08/12/25 18:28 WBC RBC Hgb Hct MCV MCH MCHC RDW Std Deviation RDW Coeff of Zelda Plt Count MPV Immature Gran % (Auto) Neut % (Auto) Lymph % (Auto) [place] % (Auto) Eos % (Auto) Baso % (Auto) Absolute Neuts (auto) Absolute Lymphs (auto) Nucleated RBC % PT INR APTT D-Dimer Quant (PE/DVT) Sodium Potassium Chloride Carbon Dioxide Anion Gap BUN Creatinine Estim Creat Clear Calc Est GFR (MDRD) Non-Af BUN/Creatinine Ratio Glucose Calcium Troponin T High Sens Troponin T Hi Sens 2 Hr < 6 NT pro BNP II Serum , Qual Radiography Diagnostic Testing: Clinical Impression(s) from Imaging Studies Chest X-Ray 08/12/25 17:00 IMPRESSION: No focal consolidations. Reading Location: [facility] Discharge Plan Triage Chief Complaint: Chest Pain ED Provider: Zachary Ceron Dx/Rx/DC Orders Clinical Impression: Chest pain Instructions: ED Chest Pain [facility] Prescriptions: No Action omega-3 fatty acids [Fish Oil Concentrate] 1,000 mg capsule 1,000 mg PO DAILY coenzyme Q10 [Co Q-10] 10 mg capsule 10 mg PO ONCE One A Day Women's DHA 28 mg iron- 800 mcg combo pack PO desogestrel-ethinyl estradiol [Apri] 0.15-0.03 mg tablet 1 tab PO QDAY propylthiouracil 50 mg tablet See Rx Instructions PO TID Qty: 204 1RF Rx Instructions: 100 mg am, 50 mg pm orally three times a day; Primary Care Provider: Kaci Ferrera Referrals: Haresh Nuñez MD [Med Staff - Active Staff, Cardiology] - 3-5 Days Kaci Ferrera, [Primary Care Provider, Family Practice] - 3-5 Days Activity Restrictions/Additional Instructions: Follow-up with primary care physician and cardiology. Return back to ED if symptoms change or worsen. Print Language: Turkish Disposition Disposition: Home, Self Care What to do if you have Problems For any increased pain, shortness of breath, bleeding, nausea or vomiting, chestpain, or any unexpected problems, contact your Primary Care Provider. Call [facility] ([phone]) or report to the closest Emergency Room. Call 911 if necessary. 08/12/251955 <Electronically signed by Zachary Ceron DO> Cosigner Signature (if applicable): CC: Kaci Ferrera DO ~ Signed [facility] Work Phone: 1(163) 452-363605-16-2025 NoteHNO ID: [id number] Author: DEE GLASGOW DO Service: ? Author [...] these instructions. Informed Consent Consent Obtained: Written Rosenberg Protocol A moment to CARE was completed. [...] of right rotator cuff Dee Glasgow DO 03/23/2025[facility]05-16-2025 History of Present illness Narrative* Dee Glasgow, - 03/23/2025 2:14 PM EDTAssociated Order(s): Biologics Injection: R shoulder Post-Procedure Diagnose(s): [...] these instructions. Informed Consent Consent Obtained: Written Rosenberg Protocol A moment to CARE was completed. [...] the bedside nurse for hospitalized patients) applicable. (S43.061A) Glenoid labral tear, right, initial encounter (primary encounter diagnosis) (M67.911) Tendinopathy of right rotator cuff Dee Glasgow DO 03/23/2025 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 February 15, 2025 8:29am [facility] Work Phone: 1(900) 554-878502-26-2025 Evaluation + Plan note Diagnostic Tests Pending * Anti-Mullerian Hormone (AMH) 01/03/25 [facility] 02-24-2025 Evaluation note* Diagnosis Onset Date Resolution Status Admit Date Infertility acute December 8:49am Encounter for routine gynecological examination noneactive ua 2024 8:49am [facility] Work Phone: 1(715) 538-341502-24-2025 Evaluation note* Diagnosis Onset Date Resolution Status Admit Date Infertility acute December 8:49am Encounter for routine gynecological examination noneactive Februa 2024 8:49am 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 Author Type: Physician Type: Progress Notes Filed: 11/14/2024 13:52 Note Text: MUSCULOSKELETAL DISTANCE HEALTH VIRTUAL VISIT DOCUMENTATION NOTE This virtual visit was performed via video enabled technology, and the patient provided consent to be evaluated and managed using this virtual visit and video enabled technology. Distance Health Platform: [employer] in [employer] CHIEF COMPLAINT (CC): Ritika Vega is a [...] the above plan. Dee Glasgow [facility]01-07-2025 History of Present illness Narrative* Dee Glasgow, DO - 11/14/2024 1:44 PM EST [facility] EM[facility]GENC[facility] DEPART[facility] HEALTH VIRTUAL VISIT DOCUMENTATION NOTE This virtual visit was performed via video enabled technology, and the patient provided consent to be evaluated and managed using this virtual visit and video enabled technology. [employer] Health Platform: [employer] in [employer] CHIEF COMPLAINT (CC): Ritika Vega is a [...] plan. Dee Glasgow DO documented in this encounterSt[facility] History of Present illness Narrative* Jazmyne Argueta, BRANCH OFFICE MANAGER - THEORETICAL PHYSICS TEACHER - 11/14/2024 9:00 AM EST GYNECOLOGIC ONCOLOGY [...] PO Take 240 mg by mouth daily. [place]-3 Fatty Acids (Fish Oil) 1000 MG capsule [...] Follow-up with Dr. Bustillos and with primary digital account manager for routine care. I explained diagnosis and treatment plan; patient expressed understanding and was in agreement withthe plan. ONESIMO Lynn CNP documented in this [facility]12-30-2024 Miscellaneous Notes* Post- Procedure Note - [...] 11/06/2024 1:11 PM EST Date: 11/06/2024 Location: [facility] OR Name: Ritika Vega, : 1985, Diagnosis Pre-op Diagnosis * Intra-abdominal and pelvic swelling, mass and lump, unspecified site [R19.00] Post-op Diagnosis * Intra-abdominal and pelvic swelling, mass and lump, unspecified site [R19.00] Procedures LAPAROSCOPIC OVARIAN CYSTECTOMY 72833 - [place] OVARIAN CYSTECTOMY UNI/BI Surgeons * Pedro Edwards - Primary Procedure Summary Anesthesia: General ASA: II Estimated Blood Loss: 20 mL Drains: Urethral Catheter (Active) Specimens ID Source Type Tests Collected By Collected At Frozen? Priority Lab ID 1 Peritoneal Washings Wash NON-GYNECOLOGIC CYTOLOGY Pedro Edwards MD 11/06/24 1340 Description: PELVIC WASHINGS 2 Ovary, Right Tissue TISSUE EXAM Pedro Edwards MD 11/06/24 2419 Description: RIGHT OVARIAN CYST Staff: Manager Technology: Angelina Clifton RN; Evelia Beasley RN Scrub [...] indicated for this procedure. documented in this [facility]12-30-2024 Note* Post-Procedure Note - Marielle Hair RN - 11/06/2024 7:10 PM EST Patient feeling better after IM Ephedrine injection. Ambulated and ready to be discharged [facility]12-30-2024 Note* Post-Procedure Note - Marielle Hair RN - 11/06/2024 7:10 PM EST Patient feeling better after IM Ephedrine injection. Ambulated and ready to be discharged [facility]12-30-2024 Note* Post-Procedure Note - Marielle Hair [...] then upon standing, patient vomited. [facility]12-30-2024 Note* Post-Procedure Note - Marielle Hair [...] of bed, then upon standing, patient vomited. [address]30-2024 Note* Post-Procedure Note - Marielle Hair RN - 11/06/2024 5:47 PM EST Patient states she is feeling better. We will attempt to ambulate to restroom [id number] Note* Post-Procedure Note - Marielle Hair RN - 11/06/2024 5:47 PM EST Patient states she is feeling better. We will attempt to ambulate to restroom [place] [id number] Note* Post-Procedure Note - Marielle Hair RN - 11/06/2024 4:45 PM EST Discharge information given to the patient. Patient and family verbalized understanding of information. All questions were answered at this time. Patient denies dizziness. Vital signs are stable. [facility]12-30-2024 Note* Post-Procedure Note - Marielle Hair RN - 11/06/2024 4:45 PM EST Discharge information given to the patient. Patient and family verbalized understanding of information. All questions were answered at this time. Patient denies dizziness. Vital signs are stable. [facility] [id number] Note* Perioperative Nursing Note - Michelle Dick RN - 11/06/2024 3:35 PM EST Family/visitor at bedside with patient. [id number] Note* Perioperative Nursing Note - Michelle Dick RN - 11/06/2024 3:35 PM EST Family/visitor at bedside with patient. [facility] [id number] NotePatient: Ritika Vega Procedure Summary Date: 11/06/24 Room / [facility] [address] [place] [address] Operating Room Anesthesia Start: 1311 Anesthesia Stop: [...] discharged once all PACU criteria has been met.[facility]12-30-2024 NotePatient: Ritika Vega Procedure Summary Date: 11/06/24 Room / Location: [facility] [address] [place] [address] Operating Room Anesthesia Start: 1311 Anesthesia Stop: [...] factors for PONV (4556F) Patient received at aset 2 prophylactic Rx PONV anti-emtic agents of [...] Allowed opportunity for questions and acknowledgement of understanding.[facility]12-30-2024 NoteAirway Date/Time: 11/06/2024 1:21 PM Urgency: scheduled Airway not difficult General Information and Staff Patient location during procedure: Procedural Resident/VEHICLE WASHER: Alvin New CRNA Performed: SRNA Indications and [...] (cm): 21 [facility] at [facility] Note Peripheral Block Time Out: 11/06/2024 1:15 PM Patient location during procedure: Procedural Start time: 11/06/2024 1:15 PM End time: 11/06/2024 1:17 PM Reason for block: at surgeon's request and post-op pain management Staffing Performed: VEHICLE WASHER Resident/VEHICLE WASHER: Lacie Flanagan APRN - YADIEL Preanesthetic Checklist [...] supine Prep: ChloraPrep Patient monitoring: heart rate, cafeteria monitor, continuous pulse ox and continuous capnometry [...] plane. and Local anesthetic injected without difficultyMedications kphJGPBIqmvaa-amvwcezgffd-wssbxjffwsu (TAP) syringe - Injection 60 mL - 11/06/2024 1:15:00 [facility]12-30-2024 Note* Brief Op Note - Pedro Edwards MD - 11/06/2024 1:11 PM EST Date: 11/06/2024 Location: [facility] OR Name: Ritika Vega, : 1985, Diagnosis Pre-op Diagnosis * Intra-abdominal and pelvic swelling, mass and lump, unspecified site [R19.00] Post-op Diagnosis * Intra-abdominal and pelvic swelling, mass and lump, unspecified site [R19.00] Procedures LAPAROSCOPIC OVARIAN CYSTECTOMY 53400 - [place] OVARIAN CYSTECTOMY UNI/BI Surgeons * Pedro Edwards [...] 11/06/24 1409 Description: RIGHT OVARIAN CYST Staff: Manager Technology: Angelina Clifton RN; Evelia Beasley RN Scrub [...] antibiotics are not indicated for this procedure. [facility]12-30-2024 Note* Brief Op Note - Pedro Edwards MD - 11/06/2024 1:11 PM EST Date: 11/06/2024 Location: [facility] OR Name: Ritika Vega, : 1985, Diagnosis Pre-op Diagnosis * Intra-abdominal and pelvic swelling, mass and lump, unspecified site [R19.00] Post-op Diagnosis * Intra-abdominal and pelvic swelling, mass and lump, unspecified site [R19.00] Procedures LAPAROSCOPIC OVARIAN CYSTECTOMY 28009 - [place] OVARIAN CYSTECTOMY UNI/BI Surgeons * Pedro Edwards [...] 11/06/24 1409 Description: RIGHT OVARIAN CYST Staff: Manager Technology: Angelina Clifton RN; Evelia Beasley RN Scrub [...] antibiotics are not indicated for this procedure. [facility]12-30-2024 History and physical note* Pedro Edwards MD - 11/06/2024 9:17 AM EST Images from the original note were not included. WARD CLERK Pre-Op Note Patient Name: Ritika Vega [...] LASIK (2010); Tonsillectomy; Upper gastrointestinal endoscopy; and [place] tooth extraction. ALLERGIES: Allergies as of 10/30/2024 [...] suite. Pedro Jimenez MD 11/06/2024, 9:17 AM [facility] Phone: 1(773) 489-849212-30-2024 NoteOB/ENT CONSULTANT Pre-Op Note Patient Name: Ritika Vega Patient [...] LASIK (2010); Tonsillectomy; Upper gastrointestinal endoscopy; and [place] tooth extraction. ALLERGIES: Allergies as of 10/30/2024 [...] operative suite. Pedro Jimenez MD 11/06/2024, 9:17 [facility]12-30-2024 History and physical note* Pedro Edwards MD - 11/06/2024 9:17 AM EST Images from the original note were not included. WARD CLERK Pre-Op Note Patient Name: Ritika Vega [...] LASIK (2010); Tonsillectomy; Upper gastrointestinal endoscopy; and [place] tooth extraction. ALLERGIES: Allergies as of 10/30/2024 [...] MD 11/06/2024, 9:17 AM documented in this [facility]12-25-2024 NotePatient: Ritika Vega Procedure Information Date/Time: 11/06/24 1330 Procedure: OVARIAN CYSTECTOMY (Abdomen) - 60 MINS Location: [place] [address] Operating Room Surgeons: Pedro Edwards MD Relevant [...] according to ERAS protocol. General eras - celebladarius (digital account manager) Bety Ayon APRN - EMORY YONATHAN Screening Labs: No results found for: "WBC", "HGB", "HCT", "MCV", "PLT" No results found for: "SODIUM", "NA", "POTASSIUM", "K", "CHLORIDE", "CL", "CO2", "BUN", "CREATININE", "GLUCOSE", "CALCIUM", "PROT", "BILIRUBINFL", "ALKPHOS", "AST", "ALT", "EGFR", "GLOB" No echocardiogram results found for the past 14 days No results found for this or any previous visit. Equipment Requests: Additional Equipment RequestsHenry [facility]12-24-2024 NoteSurgeon: Dr Edwards Case# [id number] Procedure: Ovarian cystectomy Sx Date: Tuesday 11/06 Time: 1400 Location: [facility] CPT: 49478 ICD-10: R19.00 Special Equipment: PAT: Saturday 11/03 at 0830- Phone call Submitted auth thru [employer] portal, awaiting determination.[facility]12-23-2024 History of Present illness Narrative* Pedro [...] Apolinar Lee Anesthesia problems Maternal Grandmother Cece Meiser Diabetes [...] I apologize for minor errors in senior product analyst which may be present. documented in this [facility]12-23-2024 History of Present illness Narrative* Margaret [...] PATIENT PRESENTS WITH AN IMPLANTABLE OR ATTACHED AGENTS' RECORDS CLERK: No RADIOLOGY DEPARTMENT: MR; Exam(s) Completed: Upper MSK: Shoulder, right PERIPHERAL IV DATA: Not applicable SIGNED BY: RT Scotty(Tian) October 30, 2024 7:43 AM documented in this encounterSt. [facility]12-23-2024 NoteHNO ID: [id number] Author: MARGARET AMIN RT(R) Service: ? Author [...] PATIENT PRESENTS WITH AN IMPLANTABLE OR ATTACHED AGENTS' RECORDS CLERK: No RADIOLOGY DEPARTMENT: MR; Exam(s) Completed: Upper MSK: Shoulder, right PERIPHERAL IV DATA: Not applicable SIGNED BY: RT Scotty(Tian) October 30, 2024 7:43 [facility]12-16-2024 Telephone encounter Note* Telephone Encounter - Jamila Zuniga MA - 10/23/2024 11:31 AM EST Responded Via My Chart. [facility]12-16-2024 Miscellaneous Notes* Telephone Encounter - Jamila Zuniga MA - 10/23/2024 11:31 AM EST Responded Via My Chart. documented in this encounterSt. Mary'[facility] Center12-11-2024 NoteHNO ID: [id number] Author: DEE GLASGOW DO Service: ? Author [...] results and radiologist's interpretation, available in the [facility] health record. Images were reviewed [...] treatment plan as detailed above. Dee Glasgow [facility]12-11-2024 History of Present illness Narrative* [...] results and radiologist's interpretation, available in the [facility] health record. Images were reviewed [...] above. Dee Glasgow DO documented in this encounterSt. Mary'[facility] Center12-11-2024 NoteHNO ID: [id number] Author: MARGARET BRAMBILA RT(Tian) Service: ? Author [...] PATIENT PRESENTS WITH AN IMPLANTABLE OR ATTACHED AGENTS' RECORDS CLERK: No RADIOLOGY DEPARTMENT: General X-ray: Exam(s) Completed: Upper Extremity X-Ray(s): Shoulder, AP / TRUE AP / AXILLARY right PERIPHERAL IV DATA: Not applicable SIGNED BY: RT Naye(R) October 18, 2024 9:53 [facility]12-11-2024 History of Present illness Narrative* [...] PATIENT PRESENTS WITH AN IMPLANTABLE OR ATTACHED AGENTS' RECORDS CLERK: No RADIOLOGY DEPARTMENT: General X-ray: Exam(s) Completed: Upper Extremity X- Ray(s): Shoulder, AP / TRUE AP / AXILLARY right PERIPHERAL IV DATA: Not applicable SIGNED BY: RT Naye(R) October 18, 2024 9:53 AM documented in this encounterSt. Mary'[facility] Center11-22-2024 Evaluation + Plan note Diagnostic Tests Pending * Rapid Plasma Reagin Test 09/29/24 * Rubella Antibody 09/29/24 * Varicella Zoster Antibody 09/29/24 * N. gonorrhoeae PCR 09/29/24 * Chlamydia trachomatis PCR 09/29/24 [facility] 03-25-2024 Note The microscopic examination is performed, except in the case of Gross Only. [facility] 03-25-2024 Note The microscopic examination is performed, except in the case of Gross Only. [facility] 03-22-2024 Note The microscopic examination is performed, except in the case of Gross Only. [facility] 03-22-2024 Note The microscopic examination is performed, except in the case of Gross Only. [facility] 03-22-2024 Note The microscopic examination is performed, except in the case of Gross Only. [facility] 03-22-2024 Note The microscopic examination is performed, except in the case of Gross Only. [facility] 03-22-2024 Note The microscopic examination is performed, except in the case of Gross Only. [facility] 07-14-2023 History of Present illness Narrative* Va [...] verified. Either the patient or their legal tax compliance representative has been informed of the risks, benefits, and alternatives based on a remote evaluation, and consents to proceed remotely per [place] law. CC: Graves disease HPI: Ritika Vega [...] Procedure Laterality Date EGD Upper endoscoscopy: Dr. GriffithCxku-Lnvfa-Qpkbkuk Celiac Disease ELBOW SURGERY HX 2008 left [...] also ordered new today IMAGING PHYSICAL EXAM: [facility] 03/17/2019 VIRTUALLY General appearance: Well [...] RD, MD, CCD, FACN, FACP, FACE Diplomate, [place] [employer] Diplomate, National Board of Physician Nutrition Specialists Endocrinology / / [facility] [address] Any part of this document that has been added/copied & pasted from other documents has been reviewed for accuracy and updated as appropriate at the time of the patient encounter documented in this encounterAvita [facility] Hospitalaluation + Plan note No data available for this section [facility] Evaluation note* Diagnosis Onset Date Resolution Status Thyrotoxicosis due to Graves' disease [facility] Work Phone: Evaluation noteNo assessment information available [facility] Work Phone: Evaluation note* Diagnosis Onset Date Resolution Status Paresthesia acute 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 [facility] Work Phone: Evaluation note* Diagnosis Graves disease- Primary Toxic diffuse goiter without mention of thyrotoxic crisis or storm Celiac disease documented in this encounter [facility] note* Diagnosis Onset Date Resolution Status 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 Pre-conception counseling ac connie Encounter for routine gynecological examination noneactive [facility] Work Phone: Evaluation note* Diagnosis Onset Date Resolution Status Influenza A acute Thyrotoxicosis due to Graves' disease [facility] Work Phone: Evaluation note* Diagnosis Pain- Primary Generalized pain documented in this encounter [facility] note* Diagnosis Glenoid labral tear, right, initial encounter- Primary Tendinopathy of right rotator cuff documented in this encounter [facility] note* Diagnosis Glenoid labral tear, right, initial encounter Tendinopathy of right rotator cuff documented in this encounter [facility]* Diagnosis Ovarian mass- Primary Unspecified noninflammatory disorder of ovary, fallopian tube, and broad ligament Mature cystic teratoma Benign neoplasm of unspecified site Primary female infertility Female infertility of unspecified origin Intra-abdominal and pelvic swelling, mass and lump, unspecified site documented in this encounter [facility]* Diagnosis Intra-abdominal and pelvic swelling, mass and lump, unspecified site [facility] Diagnosis Glenoid labral tear, right, initial encounter- Primary Tendinopathy of right rotator cuff documented in this encounter [facility]* Diagnosis Postop check- Primary Follow-up examination, following unspecified surgery documented in this encounter [facility] note* Diagnosis Glenoid labral tear, right, initial encounter- Primary Tendinopathy of right rotator cuff [facility] No data available for this section [facility] Discharge instructionsAdditional Instructions Follow-up with primary care physician and cardiology. Return back to ED if symptoms change or worsen.[facility] Work Phone: Progress note No data available for this section [facility] Reason for referral (narrative)* Diagnostic Procedure Only (Routine) - New Request Specialty Diagnoses / Procedures Referred By Contac t Referred To Contact XR IMAGING Diagnoses Pain Procedures XR SHOULDER GENERAL 3V OR MORE AP/TRUE AP/OTHER RIGHT RADEX SHOULDER COMPLETE MINIMUM 2 VIEWS Daniel Bourgeois MD [address] [facility] [facility] [facility] [place] [address] [place] [address] Referral ID Status Reason Start Date Expiration Date Visits Requested Visits Authorized [id number] New Request Auto-Generat ed Referral 4 11/02/2025 1 1 * Diagnostic Procedure Only (Routine) - New Request Specialty Diagnoses / Procedures Referred By Contac t Referred To Contact XR IMAGING Diagnoses Pain Procedures XR SHOULDER GENERAL 3V OR MORE AP/TRUE AP/OTHER LEFT RADEX SHOULDER COMPLETE MINIMUM 2 VIEWS Daniel Bourgeois MD [address] [place] [address] [place] [address] Referral ID Status Reason Start Date Expiration Date Visits Requested Visits Authorized [id number] New Request Auto-Generat ed Referral 4 11/02/2025 1 1 [facility] for referral (narrative)No reason for referral information availableWUniversity Hospitals St. [facility] Work Phone: Reason for visit Narrative* Auth/Cert (Routine) Specialty Diagnoses / Procedures Referred By Contelie t Referred To Contact Diagnoses Intra-abdominal and pelvic swelling, mass and lump, unspecified site Intra-abdominal and pelvic swelling, mass and lump, unspecified site [R19.00] Procedures [place] OVARIAN CYSTECTOMY UNI/BI LAPAROSCOPIC OVARIAN CYSTECTOMY Pedro Edwards MD [address] [facility] [address] [facility] [address] [address] [place] [address] Phone: tel: fax: Referral ID Status Reason Start Date Expiration Date Visits Re quested Visits Authorized [id number] 10/30/2024 1 1 [facility] for visit Narrative* Financial Clearance (Routine) - Closed Specialty Diagnoses / Procedures Referred By Contelie t Referred To Contact ORTHOPAEDIC SURGERY Diagnoses Tendinopathy of right rotator cuff Glenoid labral tear, right, initial encounter (S43.431A) Glenoid labral tear, right, initial encounter (M67.911) Tendinopathy of right rotator cuff Procedures NJX PLTLT PLASMA W/IMG HARVEST/PREPARATION PRP WITH US GUIDE - RIGHT SHOULDER Dee Glasgow, DO [address] [place] [address] Phone: tel: fax: Orthopaedics [address] [place] [address] Phone: tel: fax: Referral ID Status Reason Start Date Expiration Date V isits Requested Visits Authorized [id number] Closed Do Not Bill Insurance - SP patient Patient Cleared - True Self-Pay required payment collected 12/06/2024 03/25/[address] [facility] Summary Purpose Family History No [...] Comments 11/06/2024 11:55 AM 11/06/2024 9:28 PM Advance Directive Response Recorded Date/ Time Do you have a Healthcare Power of Film Projector Operator? No August 12, 2025 5:10pm Chief Complaint and Reason for Visit Chief Complaint 6 M FU EORDER Reason for Visit Thyrotoxicosis due t o Graves' disease Chief Complaint EORDER EORDER Chief Complaint EORDER EORDER EORDER Chief Complaint EORDER EORDER 6 M FU EORDERS FOR AND BRAVO Reason for Visit Paresthesia Thyrotoxicosis due to Graves' disease Chief Complaint EORDER EORDER 6 M FU EORDERS FOR KING DARNELL BRAVO LUMBAR RAD Reason for Visit Paresthesia [...] diffuse goiter without thyroto E ORDERS Annual (ENT CONSULTANT) Reason for Visit Thyrotoxicosis due t o Graves' disease Pre-conception counseling Encounter for routine gynecological examination Chief Complaint COUGH, CHILLS,ACHY EORDER 6 M FU Reason for Visit Influenza A Thyrotoxicosis due to Graves' disease Chief Complaint Admit Date EORDER October 18, 2024 1:51pm EORDER December 08, 2024 8 :25am Annual (ENT CONSULTANT) January 01, 2025 8:49am EORDER January 08, 2025 8:29 am Reason for Visit Admit Date Infertility January 01, 2025 8:49am Encounter for routine gynecological exam ination January 01, 2025 8:49am Chief Complaint Admit Date EORDER December 08, 2024 8 :25am Annual (ENT CONSULTANT) January 01, 2025 8:49am EORDER January 08, 2025 8:29 am 6 M FU February 15, 2025 8:2 9am E-ORDER March 15, 2025 8:30am Reason for Visit Admit Date Infertility January 01, 2025 8:49am Encounter for routine gynecological exam ination January 01, 2025 8:49am Thyrotoxicosis due to Graves' disease Ap ril 2024 8:29am Chief Complaint Admit Date EORDER December 08, 2024 8 :25am Annual (ENT CONSULTANT) January 01, 2025 8:49am EORDER January 08, 2025 8:29 am 6 M FU February 15, 2025 8:2 9am E-ORDER March 15, 2025 8:30am EORDERS March 28, 2025 8:40a m Chief Complaint Admit Date Annual (ENT CONSULTANT) January 01, 2025 8:49am EORDER January 08, [...] 11 :10am Chief Complaint Admit Date E-ORDER May 8th, 2025 8:30am EORDERS March 28, 2025 8:40a m EORDERS April 13, 2025 10:08 am EORDERS June 18, 2025 11 :10am EORDERS July 06, 2025 10 :10am Chief Complaint Admit Date EORDERS April 13, 2025 10:08 am EORDERS June 18, 2025 11 :10am EORDERS July 06, 2025 10 :10am EORDERS August 03, 2025 9:39am Chief Complaint Admit Date EORDERS June 18, 2025 11 :10am EORDERS July 06, 2025 10 :10am EORDERS August 03, 2025 9:39am CP August 12, 2025 4: 05pm Reason for Referral Specialty Diagnoses / Procedures Referred By Garry kam Referred To Contact MR IMAGING Diagnoses Glenoid labral tear, right, initial encounter Tendinopathy of right rotator cuff Procedures MRI SHOULDER WO IVCON RIGHT MRI ANY JT UPPER EXTREMITY W/O CONTRAST MATRL Dee Glasgow, DO [address] [place] [address] [place] [address] Referral ID Status Reason Start Date Expiration Date V isits Requested Visits Authorized [id number] Open Auto-Generate d Referral 10/18/2024 11/17/2025 1 1 Additional Source Comments INFORMATION SOURCE (unrecogn ized section and content) DATE CREATED AUTHOR 06/02/2019 [facility] DATE CREATED AUTHOR AUTHOR'S ORGANIZ ATION 09/29/2019 [facility] DATE CREATED AUTHOR AUTHOR'S ORGANIZ ATION 11/15/2020 [employer] DATE CREATED AUTHOR AUTHOR'S ORGANIZ ATION 03/29/2024 [facility] ([place]) DATE CREATED AUTHOR AUTHOR'S ORGANIZ ATION 10/02/2024 [facility] DATE CREATED AUTHOR AUTHOR'S ORGANIZ ATION 10/23/2024 [facility] DATE CREATED AUTHOR AUTHOR'S ORGANIZ ATION 11/20/2024 [facility] DATE CREATED AUTHOR AUTHOR'S ORGANIZ ATION 12/29/2024 [facility] DATE CREATED AUTHOR AUTHOR'S ORGANIZ ATION 01/07/2025 [facility] DATE CREATED AUTHOR AUTHOR'S ORGANIZ ATION 03/24/2025 [facility] DATE CREATED AUTHOR AUTHOR'S ORGANIZ ATION 08/28/2025 [facility] Goals (unrecognized section and content) Goals [...] Active Member Role Status Dates Nacho Ferrera , DO Primary Care Provider Active Team Status: [...] Ferrera DO Primary Care Provider Active Dr. Kiryb Burrows MD Attending Provider, Referring Provi constanza Active Team Status: Inactive Member Role Status Dates Nacho Ferrera DO Primary Care Provider Active Zuleyma Shaffer NP-C Attending Provider, Referring Pr ovider Active Dr. Kirby Burrows MD Other Provider Active Team Status: Inactive Member Role Status Dates Nacho Ferrera , DO Primary Care Provider Active Dr. True Prather MD Attending Provider Active Team Status: Inactive Member Role Status Dates Nacho Ferrera DO Primary Care Provider, Referring Provider Active Dr. Kirby Burrows MD Attending Provider Active Freezer Assistant Relationship Specialty Start Date End Date Sandy [...] Yony Phan MD Primary Care Provider Active Freezer Assistant Relationship Specialty Start Date End Date Nacho Ferrera DO [address] [place] [address] PCP - General Family Medicine 10/03/24 Nacho Ferrera DO [address] [place] [address] Referring Family Medicine 10/03/24 Freezer Assistant Relationship Specialty Start Date End Date Nacho Ferrera DO [address] [place] [address] PCP - General Family Medicine 10/03/24 Nacho Ferrera DO [address] [place] [address] Referring Family Medicine 10/03/24 Freezer Assistant Relationship Specialty Start Date End Date Nacho Ferrera DO [address] [place] [address] PCP - General Family Medicine 10/03/24 Nacho Ferrera DO [address] [place] [address] Referring Family Medicine 10/03/24 Freezer Assistant Relationship Specialty [place] [address] [place] [id number] PCP - General Family Medicine 10/03/24 Nacho Ferrera DO [address] [place] [address] Referring Family Medicine 10/03/24 Freezer Assistant Relationship Specialty Start Date End Date Nacho Ferrera DO [address] [place] [address] PCP - General Family Medicine 10/03/24 Nacho Ferrera DO [address] [place] [address] Referring Family Medicine 10/03/24 Freezer Assistant Relationship Specialty Start Date End Date Sandy Dawn DO PCP - General 10/20/17 Karie Ortiz MD [address] [place] [id number] Consulting Physician Gynecologic Oncology 10/26/24 Pedro Edwards MD [address] [place], [place] [phone] Consulting Physician Gynecologic Oncology 10/29/24 Freezer Assistant Relationship Specialty Start Date End Date Karie Ortiz MD [address] [place] [address] Consulting Physician Gynecologic Oncology 10/26/24 Pedro Edwards MD [address] [place], [place] [id number] Consulting Physician Gynecologic Oncology 10/29/24 Freezer Assistant Relationship Specialty Start Date End Date Nacho Ferrera DO [address] [place] [address] PCP - General Family Medicine 10/03/24 Nacho Ferrera DO [address] [place] [address] Referring Family Medicine 10/03/24 Freezer Assistant Relationship Specialty Start Date End Date Karie Ortiz MD [address] [place] [phone] Consulting Physician Gynecologic Oncology 10/26/24 Pedro Edwards MD [address] [place], [place] [phone] Consulting Physician Gynecologic Oncology 10/29/24 Jazmyne Argueta, BRANCH OFFICE MANAGER - THEORETICAL PHYSICS TEACHER [address] [place] [address] Nurse Practitioner Nurse Practitioner 11/14/24 Team Status: [...] March 15, 2025 End: March 15, 2025 Freezer Assistant Relationship Specialty Start Date End Date Nacho Ferrera DO [address] [facility], [place] [address] PCP - General Family Medicine 10/03/24 Nacho Ferrera DO [address] [facility], [place] [address] Referring Family Medicine 10/03/24 Team Status: Inactive [...] April 13, 2025 End: April 13, 2025 Freezer Assistant Relationship Specialty Start Date End Date Nacho Ferrera DO [address] [facility], [place] [address] PCP - General Family Medicine 10/03/24 Nacho Ferrera DO [address] [place] [address] Referring Family Medicine 10/03/24 Team Status: Active Member Role Status Perfecto Ferrera VSC, DO Primary Care Provider Active Team Status: Inactive Member Role Status Dates Kaci Ferrera C, DO Primary Care Provider Active Start: April 27, 2025 End: April 27, 2025 Dr. Kirby Burrows MD Attending Provider Active Sta rt: April 27, 2025 End: April 27, 2025 Dr. Kirby Burrows MD Referring Provider Active Sta rt: April 27, 2025 End: April 27, 2025 Team Status: Active Member Role/Relationship Status Dates Kaci FITZGERALD, DO Primary Care [...] Status: Inactive Member Role/Relationship Status Dates Kaci FITZGERALD, DO Primary Care Provider Active Start: April 27, 2025 End: April 27, 2025 Dr. Kirby Burrows MD Attending Provider Active Sta rt: April 27, 2025 End: April 27, 2025 Dr. Kirby Burrows MD Referring Provider Active Sta rt: April 27, 2025 End: April 27, 2025 Team Status: Inactive Member Role/Relationship Status Perfecto CHAMBERS, DO Primary Care Provider Active Start: May 10, 2025 End: May 10, 2025 Dr. Kirby Burrows MD Attending Provider Active Sta rt: May 10, 2025 End: May 10, 2025 Dr. Kirby Burrows MD Referring Provider Active Sta rt: May 10, 2025 End: May 10, 2025 Team Status: Inactive Member Role/Relationship Status Perfecto CHAMBERS, DO Primary Care Provider Active Start: [...] VSC, DO Primary Care Provider Active Start: April [...] CHAMBERS, DO Primary care physician Active Start: April 27, 2025 End: April 27, 2025 Dr. Kirby Burrows MD Attending physician Active St art: April 27, 2025 End: April 27, 2025 Dr. Kirby Burrows MD Referring Provider Active Sta rt: April 27, 2025 End: April 27, 2025 Team Status: Inactive Member Role/Relationship Status Dates Kaci CHAMBERS, DO Primary care physician Active Start: May 10, 2025 End: May 10, 2025 Dr. Kirby Burrows MD Attending physician Active St art: May 10, 2025 End: May 10, 2025 Dr. Kirby Burrows MD Referring Provider Active Sta rt: May 10, 2025 End: May 10, 2025 Team Status: Inactive Member Role/Relationship Status Dates Kaci CHAMBERS, DO Primary care physician Active Start: May [...] VSC, DO Primary care physician Active Start: August 03, 2025 End: August 03, 2025 Dr. Kirby Burrows MD Attending physician Active St art: August 03, 2025 End: August 03, 2025 Dr. Kirby Burrows MD Referring Provider Active Sta rt: August 03, 2025 End: August 03, 2025 Team Status: Inactive Member Role/Relationship Status [...] Role/Relationship Status Dates Kaci FITZGERALDC, DO Primary care physician Active Start: May 10, 2025 End: May 10, 2025 Dr. Kirby Burrows MD Attending physician Active St art: May 10, 2025 End: May 10, 2025 Dr. Kirby Burrows MD Referring Provider Active Sta rt: May 10, 2025 End: May 10, 2025 Team Status: Inactive Member Role/Relationship Status Dates Kaci FITZGERALDC, DO Primary care physician Active Start: May 25, 2025 End: May 25, 2025 Dr. Kirby Burrows MD Attending physician Active St art: May 25, 2025 End: May 25, 2025 Dr. Kirby Burrows MD Referring Provider Active Sta rt: May 25, 2025 End: May 25, 2025 Team Status: Inactive Member Role/Relationship Status Dates Kaci Ferrera VSC, DO Primary care physician Active Start: June 18, 2025 End: June 18, 2025 Dr. Kirby Burrows MD Attending physician Active St art: June 18, 2025 End: June 18, 2025 Dr. Kirby Burrows MD Referring Provider Active Sta rt: June 18, 2025 End: June 18, 2025 Team Status: Inactive Member Role/Relationship Status Dates Kaci Ferrera VSC, DO Primary care physician Active Start: July [...] August 03, 2025 End: August 03, 2025 Team Status: Inactive Member Role/Relationship Status Dates Kaci CHAMBERS, DO Primary care physician Active Start: August 12, 2025 End: August 12, 2025 Dr. Zachary Ceron DO Emergency Department Physician Active Start: August 12, 2025 End: August 12, 2025 Source Comments (unrecognize d section and content) In the event this informatio n is protected by the Federal Confidentiality of Alcohol and Drug Abuse Patient Records regulations: The Federal rules restrict any use of the information to criminally investigate or prosecute any alcohol or drug abuse patient.[facility] the event this information is protected by the Federal Confidentiality of Alcohol and Drug Abuse Patient Records regulations: The Federal rules restrict any use of the information to criminally investigate or prosecute any alcohol or drug abuse patient.[facility] the event this information is protected by the Federal Confidentiality of Alcohol and Drug Abuse Patient Records regulations: The Federal rules restrict any use of the information to criminally investigate or prosecute any alcohol or drug abuse patient.[facility] the event this information is protected by the Federal Confidentiality of Alcohol and Drug Abuse Patient Records regulations: The Federal rules restrict any use of the information to criminally investigate or prosecute any alcohol or drug abuse patient.[facility] the event this information is protected by the Federal Confidentiality of Alcohol and Drug Abuse Patient Records regulations: The Federal rules restrict any use of the information to criminally investigate or prosecute any alcohol or drug abuse patient.[facility] the event this information is protected by the Federal Confidentiality of Alcohol and Drug Abuse Patient Records regulations: The Federal rules restrict any use of the information to criminally investigate or prosecute any alcohol or drug abuse patient.[facility] the event this information is protected by the Federal Confidentiality of Alcohol and Drug Abuse Patient Records regulations: The Federal rules restrict any use of the information to criminally investigate or prosecute any alcohol or drug abuse patient.[facility] the event this information is protected by the Federal Confidentiality of Alcohol and Drug Abuse Patient Records regulations: The Federal rules restrict any use of the information to criminally investigate or prosecute any alcohol or drug abuse patient.[facility] the event this information is protected by the Federal Confidentiality of Alcohol and Drug Abuse Patient Records regulations: The Federal rules restrict any use of the information to criminally investigate or prosecute any alcohol or drug abuse patient.[facility] Center[facility] the event this information is protected by the Federal Confidentiality of Alcohol and Drug Abuse Patient Records regulations: The Federal rules restrict any use of the information to criminally investigate or prosecute any alcohol or drug abuse patient.[facility] Center[facility] the event this information is protected by the Federal Confidentiality of Alcohol and Drug Abuse Patient Records regulations: The Federal rules restrict any use of the information to criminally investigate or prosecute any alcohol or drug abuse patient.[facility] Reason for Visit (unrecogniz ed section and content) Reason Comments Graves Disease Specialty Diagnoses / Procedures Referred By Contac t Referred To Contact Endocrinology / ENDOCRINOLOGY Diagnoses Graves disease Graves Disease Procedures PHYS/QHP TELEPHONE EVALUATION 5-10 MIN [place] [address] [place] [address] Referral ID Status Reason Start Date Expiration Date V isits Requested Visits Authorized [id number] Denied Clearance Not Met - Admin/Chairm an/Director [...] MRI ANY JT UPPER EXTREMITY W/O CONTRAST ASHOKL Dee Glasgow, DO [address] [place] [address] [place] [address] Referral ID Status Reason Start Date Expiration Date V isits Requested Visits Authorized [id number] Closed Auto-Generat ed Referral Clearance Not Met - Admin/Chairm an/Director Advise to Postpone/Res chedule or Not Proceed 10/25/2024 12/26/2024 1 1 Reason Comments Other Pelvic mass Specialty Diagnoses / Procedures Referred By Contac t Referred To Contact Gynecologic Oncology Diagnoses Right adnexal mass Procedures [place] OFFICE/OUTPATIENT [facility] 60 MINUTES Inna Bustillos, DO [address] [place] [address] Phone: tel: fax: [facility] Gynecologic Oncology - [place] [address] [place] [address] Phone: tel: fax: Referral ID Status Reason Start Date Expiration Date Visits Re quested Visits Authorized [id number] Closed 10/26/2024 10/26/2025 1 1 Reason Comments [...] Rodriguez [phone] (Due: Stopped - Provider: Lakisha Foster, RN) sodium chloride 0.9 % infusion 5-250 [...] BE BASED ON THE PRIMARY CLINICAL RECORDS. [employer] [facility]. provides no warranty or guarantee of the accuracy or completeness of information in this document.
== END | disposition home or self-care (01) ==
LOC: CVS 06:44
PROVIDERS: PCP Family Medicine; Referring Provider Internal Medicine Cardiovascular Disease; Visit Provider Internal Medicine Cardiovascular Disease
DX: Z01.818 Encounter for other preprocedural examination (principal); R07.9 Chest pain, unspecified; R94.31 Abnormal electrocardiogram [ECG] [EKG]
CPT/HCPCS: 93306

== ENCOUNTER → 2025-08-31 | Outpatient (CLI) | payer OTHER, SELFPAY ==
[2025-08-31 12:49] LABS: Free T3 2.9 pg/mL (2.18-3.98)
== END | disposition home or self-care (01) ==
LOC: MTLAB 10:50
PROVIDERS: PCP Family Medicine; Referring Provider Internal Medicine Endocrinology, Diabetes & Metabolism; Visit Provider Internal Medicine Endocrinology, Diabetes & Metabolism
DX: E05.00 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xic crisis or storm (principal)
CPT/HCPCS: 36415; 84439; 84443; 84481

== ENCOUNTER → 2025-09-17 | Outpatient (CLI) | payer OTHER, SELFPAY ==
[2025-09-17 12:31] LABS: Free T3 3.4 pg/mL (2.18-3.98)
== END | disposition home or self-care (01) ==
LOC: MTLAB 09:57
PROVIDERS: PCP Family Medicine; Referring Provider Internal Medicine Endocrinology, Diabetes & Metabolism; Visit Provider Internal Medicine Endocrinology, Diabetes & Metabolism
DX: E05.00 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xic crisis or storm (principal)
CPT/HCPCS: 36415; 84439; 84443; 84481

== ENCOUNTER → 2025-10-12 | Outpatient (CLI) | payer OTHER, SELFPAY ==
[2025-10-12 13:18] LABS: Ferritin 97 ng/mL (22-378); Free T3 3.3 pg/mL (2.18-3.98)
== END | disposition home or self-care (01) ==
LOC: MTLAB 10:48
PROVIDERS: PCP Family Medicine; Referring Provider Internal Medicine Endocrinology, Diabetes & Metabolism; Visit Provider Internal Medicine Endocrinology, Diabetes & Metabolism
DX: E61.1 Iron deficiency (principal); E05.00 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xic crisis or storm
CPT/HCPCS: 36415; 82728; 84439; 84443; 84481

== ENCOUNTER → 2025-10-29 | Outpatient (CLI) | payer OTHER, SELFPAY ==
[2025-10-29 16:57] LABS: Hematocrit 40.6 % (37-47); Hemoglobin 13.7 g/dL (12.0-15.0); Immature Granulocytes Count 0.060 X10^3/uL (0.0-0.0); Mean Corp Hgb Conc 33.7 g/dL (32-36); Mean Corpuscular Volume 96.2 fL (81-99); Mean Platelet Vol. 9.6 fl (6.2-12.0); NRBC Flagged by Analyzer 0 % (0-5); Platelet Count 335 K/mm3 (150-450); RBC Distribution Width CV 11.7 % (11.6-14.6); RBC Distribution Width SD 40.6 fl (35.1-43.9); Red Blood Count 4.22 M/mm3 (4.2-5.4); White Blood Count 8.4 K/mm3 (4.4-11.0)
[2025-10-29 17:34] LABS: Free T3 3.1 pg/mL (2.18-3.98); HIV Nonreactive (Nonreactive); Hepatitis B Surface Antigen Nonreactive (Nonreactive); Hepatitis C Antibody Nonreactive (Nonreactive); Syphilis Antibodies Nonreactive (Nonreactive)
[2025-10-31 21:07] LABS: Chlamydia By Nucleic Acid AMP Negative (Negative); Gonococcus By Nucleic Acid AMP Negative (Negative)
== END | disposition home or self-care (01) ==
PROVIDERS: PCP Family Medicine; Visit Provider Advanced Practice Midwife
DX: O99.280 Endocrine, nutritional and metabolic diseases complicating pregnancy, unspecified trimester (principal); E05.00 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xic crisis or storm; O09.90 Supervision of high risk pregnancy, unspecified, unspecified trimester; Z3A.00 Weeks of gestation of pregnancy not specified
CPT/HCPCS: 36415; 84439; 84443; 84481; 85025; 86703; 86762; 86780; 86803; 86850; 86900; 86901; 87077; 87086; 87088; 87186; 87340; 87491; 87591